=== PATIENT | female | born 1975 | race Caucasian/White ===

== ENCOUNTER 2023-04-11 15:33 | Emergency (ER) | payer OTHER, SELFPAY ==
[2023-04-11 15:33] VITALS: BP 145/95; PULSE 85; RESP 18; TEMP 37.2; O2SAT 100; BMI 34.3
--- NOTE | 2023-04-11 15:33 | ECG_ITS ---
APPROVED REPORT Exam: Resting ECG HR:79 bpm ECG Measurements Heart Rate 79 AXES WI 149 P 49 QRSd 81 QRS 2 QT 393 T 8 QTc 427 Conclusion SINUS RHYTHM MINIMAL ST DEPRESSION [0.025+ mV ST DEPRESSION] BORDERLINE ECG UNCONFIRMED REPORT Electronically signed by : Adolph Bennett MD 04/12/2023 21:40:15
[2023-04-11 16:36] VITALS: BMI 26.5
--- NOTE | 2023-04-11 16:41 | CT_ITS ---
PROCEDURE INFORMATION: Exam: CTA Chest Without And With Contrast Exam date and time: 04/11/2023 4:32 PM Age: 47 years old Clinical indication: Sternal or substernal pain; Prior surgery; Surgery date: 6+ months; Surgery type: Cardiac stents; Patient HX: Chest dissection protocol; Additional info: Chest pain TECHNIQUE: Imaging protocol: Computed tomographic angiography of the chest without and with contrast. 3D rendering (Not supervised by radiologist): MIP and/or 3D reconstructed images were created by the technologist. Radiation optimization: All CT scans at this facility use at least one of these dose optimization techniques: automated exposure control; mA and/or kV adjustment per patient size (includes targeted exams where dose is matched to clinical indication); or iterative reconstruction. Contrast material: ISOVUE; Contrast volume: 100 ml; Contrast route: IV; REPORTING DATA: Count of CT and Cardiac NM exams in prior 12 months: This patient has received 0 known CTs and 0 known cardiac nuclear medicine studies in the 12 months prior to the current study. COMPARISON: No relevant prior studies available. FINDINGS: Pulmonary arteries: Pulmonary vasculature is adequately opacified without filling defects or other evidence of acute pulmonary embolism. Aorta: Ascending aorta is unremarkable. There are mild atherosclerotic changes of the descending thoracic aorta with some scattered calcified and noncalcified plaque with changes extending into the upper abdominal aorta. There is no aortic aneurysm or compelling evidence of aortic dissection. Lungs: Minor atelectatic changes right middle lobe and left lingula otherwise lung hughes are aerated and clear. Pleural spaces: Unremarkable. No pneumothorax. No pleural effusion. Heart: Heart is not significantly enlarged. No significant coronary artery calcifications. Evidence of previous coronary artery stenting. No significant pericardial effusion. Lymph nodes: Unremarkable. No enlarged lymph nodes. Bones/joints: Unremarkable. No acute fracture. Soft tissues: Unremarkable. IMPRESSION: 1. Mild atherosclerotic changes of the descending thoracic aorta. No evidence of aortic aneurysm or dissection. 2. No evidence of acute pulmonary embolism.
--- NOTE | 2023-04-11 16:43 | PC.NURSE ---
u/s guided IV placed. 20G inserted to R forearm
--- NOTE | 2023-04-11 16:43 | PC.NURSE ---
pt to CT
[2023-04-11 17:01] VITALS: BP 107/68; PULSE 69; O2SAT 100
[2023-04-11 17:02] VITALS: BP 107/68; PULSE 69; O2SAT 100
[2023-04-11 17:24] LABS: Alanine Aminotransferase 32 U/L (12-78); Albumin Level 4.2 g/dl (3.5-5.0); Albumin/Globulin Ratio 1.3 (1.1-1.8); Alkaline Phosphatase 135 U/L (38-126); Aspartate Amino Transferase 24 U/L (14-36); Bilirubin,Total 0.3 mg/dl (0.2-1.3); Blood Urea Nitrogen 12 mg/dl (7-17); Calcium 8.7 mg/dl (8.4-10.2); Carbon Dioxide 29 mmol/L (22.0-30.0); Chloride 99 mmol/L (98-107); Creatinine Clearance Estimated 93 mL/min (50-200); Estimated Glomerular Filt Rate 77 ml/min (>60); GFR (African American) 93 ML/MIN (>60); Globulin 3.2 g/dL (1.3-3.2); Glucose 110 mg/dl (74-100); Sodium 138 mmol/L (136-145); Total Protein,Serum 7.4 g/dl (6.3-8.2)
--- NOTE | 2023-04-11 17:25 | [facility].EDGENADL ---
Discharge Plan Disposition Patient Disposition: Home, Self-Care Condition: Good Prescriptions Prescriptions: New meloxicam 7.5 mg tablet 7.5 mg PO DAILY Qty: 10 0RF cyclobenzaprine 10 mg tablet 10 mg PO TID PRN (Reason: muscle spasm) Qty: 10 0RF Referrals Follow up/Referrals: Provider,ReferralMD [Primary Care Provider] - See instructions Clinical Impressions Clinical Impression: Chest pain Instructions Patient Instructions: DI for Atypical Chest Pain Discharge ED Provider: Pascual Guaman General Adult HPI General Chief complaint: Chest Pain Stated complaint: chest pain Time Seen by Provider: 04/11/23 18:36 Mode of Arrival: Ambulatory Limitations: No Limitations Description of Symptoms (Recalled from ER Triage Doc. by RN): PT C/O 4-5 DAYS OF LEFT SIDED CHEST PAIN THAT RADIATES TO LEFT SHOULDER, BACK AND NECK. PT REPORTS DRY COUGH, NAUSEA AND UPPER ABDOMINAL PAIN History of Present Illness HPI narrative: Patient presents to the emergency department with left-sided chest pain for the last 3 to 4 days. The patient states that it is progressively been getting worse and it radiates into her back. She denies any pain with movement. Denies any pain with deep inspiration. Patient denies any fever, chills, cough, congestion, nausea or vomiting. Denies any previous history of similar symptoms. States she does have some associated shortness of breath. Related Data Previous Rx's Medication Instructions Recorded cyclobenzaprine 10 mg tablet 10 mg PO TID PRN muscle spasm #10 04/11/23 tabs meloxicam 7.5 mg tablet 7.5 mg PO DAILY #10 tabs 04/11/23 Allergies Allergy/AdvReac Type Severity Reaction Status Date / Time acetaminophen [From Percocet] Allergy Verified 04/11/23 16:40 lisinopril Allergy Verified 04/11/23 16:40 oxycodone [From Percocet] Allergy Verified 04/11/23 16:40 Sulfa (Sulfonamide Allergy Verified 04/11/23 16:40 Antibiotics) [facility] Disclaimer: The information contained in this section may have been updated after the patient was seen, as this information can be updated by other users. Social History Smoking Status: Current every day smoker alcohol intake: never current occupational status: employed Travel in the last 8 weeks: None ROS Obtained: Yes All systems reviewed & no additional complaints except as documented Cardiovascular Cardiovascular: Reports chest pain and Reports dyspnea Respiratory Respiratory: Reports dyspnea Musculoskeletal Musculoskeletal: Reports back pain Physical Exam General General appearance: alert and in no apparent distress Head Head exam: atraumatic and normocephalic Eye Eye exam: Present normal appearance, PERRL and EOMI Chest Chest inspection: Present normal inspection Respiratory Respiratory exam: Present normal lung sounds bilaterally Cardiovascular Cardiovascular exam: Present regular rate, normal rhythm and normal heart sounds Abdominal Exam Abdominal exam: Present soft and normal bowel sounds Extremities Exam Extremities exam: Present normal inspection and full ROM Back Exam Back exam: Present normal inspection and full ROM Neurological Exam Neurological exam: Present alert, oriented X3 and normal gait Psychiatric Psychiatric exam: Present normal affect and normal mood Skin Skin exam: Present warm and dry Medical Decision Making Medical Records Medical records reviewed: Yes I reviewed the patient's medical records. Billy Inquiry Pt receiving controlled substance: No Vital Signs: 04/11/23 15:33 04/11/23 17:02 04/11/23 17:01 Temperature 98.9 F Temperature Source Oral Pulse Rate 69 69 Pulse Rate [Apical] 85 Respiratory Rate 18 Blood Pressure 107/68 L 107/68 L Blood Pressure [Right Arm] 145/95 H Blood Pressure Mean 81 Blood Pressure Mean [Right Arm] 111 Blood Pressure Source [Right Arm] Automatic Cuff Blood Pressure Position
[2023-04-11 17:30] VITALS: BP 105/69; PULSE 70; O2SAT 100
--- NOTE | 2023-04-11 17:33 | PC.NURSE ---
ROUNDED ON PT, TEXTING ON PHONE, NO NEEDS AT THIS TIME
[2023-04-11 17:53] LABS: Troponin I < 0.01 ng/ml (0.00-0.034)
[2023-04-11 18:09] LABS: Basophils % 0.5 % (0.1-2.0); Eosinophils # 0.1 K/mm3 (0.0-0.4); Eosinophils % 1.3 % (0.1-12.0); Hematocrit 40.5 % (37.0-47.0); Hemoglobin 13.3 g/dL (12.2-16.2); Lymphocytes # 2.5 K/mm3 (0.7-4.5); Lymphocytes % 31.7 % (10-50); Mean Corpuscular HGB Conc 32.9 g/dL (31.8-35.4); Mean Corpuscular Hemoglobin 31.3 pg (27.0-31.2); Mean Corpuscular Volume 95.2 fl (81-99); Mean Platelet Volume 8.7 fl (7.4-10.4); Monocytes # 0.5 K/mm3 (0.1-1.0); Monocytes % 6.4 % (1.7-9.3); Neutrophils # 4.7 K/mm3 (1.8-7.8); Neutrophils % 60.2 % (37.0-80.0); Platelet Count 400 K/mm3 (142-424); Red Blood Count 4.26 M/mm3 (4.20-5.40); Red Cell Distribution Width 13.5 % (11.5-17.5); White Blood Count 7.8 K/mm3 (4.8-10.8)
--- NOTE | 2023-04-11 18:12 | PC.NURSE ---
pt ambulated to restroom and back to room, no complaints at this time, call light and tap hardin at bedside
[2023-04-11 18:59] VITALS: BP 113/65; PULSE 68; RESP 18; TEMP 36.6; O2SAT 99
== END 2023-04-11 19:00 | disposition home or self-care (01) ==
PROVIDERS: Emergency Provider Emergency Medicine
DX: R07.9 Chest pain, unspecified (principal); M25.512 Pain in left shoulder; M54.2 Cervicalgia; R06.02 Shortness of breath; F17.200 Nicotine dependence, unspecified, uncomplicated
CPT/HCPCS: 71275; 80053; 84484; 85025; 93005; 96361; 96374; 99285; Q9967

== ENCOUNTER 2023-11-25 22:08 | Emergency (ER) | payer OTHER, SELFPAY ==
--- NOTE | 2023-11-25 22:11 | ECG_ITS ---
APPROVED REPORT Exam: Resting ECG HR:85 bpm ECG Measurements Heart Rate 85 AXES FL 150 P 64 QRSd 81 QRS 18 QT 375 T 44 QTc 418 Conclusion SINUS RHYTHM LOW QRS VOLTAGE IN PRECORDIAL LEADS [QRS DEFLECTION < 1.0 mV IN CHEST LEADS] NONSPECIFIC ST & T-WAVE ABNORMALITY BORDERLINE ECG UNCONFIRMED REPORT Electronically signed by : Adolph Bennett MD 11/26/2023 08:23:16
[2023-11-25 22:12] VITALS: BP 158/102; PULSE 93; RESP 17; TEMP 36.2; O2SAT 98; BMI 35.5
--- NOTE | 2023-11-25 22:15 | CT_ITS ---
PROCEDURE INFORMATION: Exam: CTA Chest With Contrast Exam date and time: 11/25/2023 10:44 PM Age: 48 years old Clinical indication: Pain; Chest pressure; Additional info: Cp to back TECHNIQUE: Imaging protocol: Computed tomographic angiography of the chest with contrast. Exam focused on the arteries. 3D rendering (Not supervised by radiologist): MIP and/or 3D reconstructed images were created by the technologist. Radiation optimization: All CT scans at this facility use at least one of these dose optimization techniques: automated exposure control; mA and/or kV adjustment per patient size (includes targeted exams where dose is matched to clinical indication); or iterative reconstruction. Contrast material: ISO 370; Contrast volume: 70 ml; Contrast route: INTRAVENOUS (IV); REPORTING DATA: Count of CT and Cardiac NM exams in prior 12 months: This patient has received [address] and 0 known cardiac nuclear medicine studies in the 12 months prior to the current study. COMPARISON: CT ANGIO CHEST 04/11/2023 4:32 PM FINDINGS: Pulmonary arteries: Normal. No pulmonary emboli. Aorta: Unremarkable. No aortic aneurysm. No aortic dissection. Lungs: Unremarkable. No consolidation. No masses. Pleural spaces: Unremarkable. No pneumothorax. No pleural effusion. Heart: Unremarkable. No cardiomegaly. No pericardial effusion. Lymph nodes: Unremarkable. No enlarged lymph nodes. Bones/joints: Unremarkable. No acute fracture. Soft tissues: Unremarkable. IMPRESSION: No acute findings.
--- NOTE | 2023-11-25 22:17 | ED_ITS ---
Discharge Plan Disposition Patient Disposition: Home, Self-Care Condition: Good Prescriptions Prescriptions: No Action meloxicam 7.5 mg tablet 7.5 mg PO DAILY Qty: 10 0RF cyclobenzaprine 10 mg tablet 10 mg PO TID PRN (Reason: muscle spasm) Qty: 10 0RF Referrals Follow up/Referrals: Provider,Referral, [Primary Care Provider] - See instructions Activity Restrictions/Add. Instructions Additional Instructions/Restrictions: You were evaluated in the ER today for chest pain. I believe you are appropriate for discharge at this time. Go to your scheduled appointments, especially the upcoming echo. Do not miss this appointment. Also make an appo intment with your primary care physician for reevaluation in 2 to 3 days. It is important that you discuss your high blood sugar with your primary care physician. Return to the ER with new, worsening, or otherwise concerning symptoms. Clinical Impressions Clinical Impression: Chest pain, Hyperglycemia Discharge ED Provider: Landon Panda HPI <Blaine Jiang MD - Last Filed: 11/25/23 23:11> General Chief Complaint: Chest Pain Stated Complaint: Chest pain Time Seen by Provider: 11/25/23 22:15 History of Present Illness HPI narrative: Patient is a 48-year-old female with past medical history of coronary artery disease status post stenting who presents emergency department for evaluation of chest pain. Onset was acute, earlier this afternoon. She had an episode yesterday of chest pain that was substernal, intermittently radiating through to the back. Partially responsive to her nitroglycerin. No cough, no abdominal pain. She presented to [facility] yesterday where workup was nonactionable and she was subsequently discharged home. Patient has cardiology testing starting Sunday this week as scheduled in [place]. No other acute complaints. Related Data Previous Rx's Medication Instructions Recorded cyclobenzaprine 10 mg tablet 10 mg PO TID PRN muscle spasm #10 04/11/23 tabs meloxicam 7.5 mg tablet 7.5 mg PO DAILY #10 tabs 04/11/23 Allergies Allergy/AdvReac Type Severity Reaction Status Date / Time acetaminophen [From Percocet] Allergy Verified 04/11/23 16:40 lisinopril Allergy Verified 04/11/23 16:40 oxycodone [From Percocet] Allergy Verified 04/11/23 16:40 Sulfa (Sulfonamide Allergy Verified 04/11/23 16:40 Antibiotics) [facility] <Blaine Jiang MD - Last Filed: 11/25/23 23:11> [facility] Disclaimer: The information contained in this section may have been updated after the patient was seen, as this information can be updated by other users. Social History (Updated 04/11/23 @ 18:36 by Pascual Guaman MD) Smoking Status: Unknown if ever smoked alcohol intake: never current occupational status: employed Travel in the last 8 weeks: None <Blanie Jiang MD - Last Filed: 11/25/23 23:11> ROS Obtained: Yes Systems reviewed as appropriate & no additional complaints except as documented Physical Exam <Blaine Jiang MD - Last Filed: 11/25/23 23:11> General General appearance: alert and in no apparent distress Head Head exam: atraumatic and normocephalic Eye Eye exam: Present PERRL and EOMI ENT ENT exam: Present mucous membranes moist Neck Neck exam: Present normal inspection Chest Chest inspection: Present normal inspection and symmetric chest wall rise Respiratory Respiratory exam: Present normal lung sounds bilaterally; Absent respiratory distress Cardiovascular Cardiovascular exam: Present regular rate and normal rhythm Abdominal Exam Abdominal exam: Present soft; Absent tenderness Extremities Exam Extremities exam: Present normal inspection Neurological Exam Neurological exam: Present alert; Absent motor sensory deficit Psychiatric Psychiatric exam: Present normal affect Skin Skin exam: Present warm and dry HEART Score <Blaine Jiang MD - Last Filed: 11/25/23 23:11> HEART Score HEART Score assessment performed?: Yes History (anamnesis): Moderately suspicious ECG: Normal Age: 45-65 years Risk factors: Atherosclerosis history Troponin: </= normal limit HEART Score: 4 <Landon Panda MD - Last Filed: 11/26/23 02:37> HEART Score HEART Score: 4 Critical Care <Blaine Jiang MD - Last Filed: 11/25/23 23:11> Critical Care Time Critical Care Time: No Medical Decision Making <Blaine Jiang MD - Last Filed: 11/25/23 23:11> Billy Inquiry Pt receiving controlled substance: No Vital Signs Vital Signs: 11/25/23 22:12 11/25/23 22:19 11/25/23 22:32 Temperature 97.2 F L Temperature Source Oral Pulse Rate 78 84 Pulse Rate [Right Brachial] 93 H Respiratory Rate 17 16 Blood Pressure 141/100 H Blood Pressure [Right Arm] 158/102 H Blood Pressure Mean 115 Blood Pressure Mean [Right Arm] 120 Blood Pressure Source [Right Arm] Automatic Cuff Blood Pressure Position [Right Arm] Sitting 02 Sat by Pulse Oximetry 98 97 Oxygen Delivery Method Room Air Room Air 11/25/23 23:01 11/25/23 23:30 11/26/23 00:00 Temperature Temperature Source Pulse Rate 73 73 72 Pulse Rate [Right Brachial] Respiratory Rate 16 18 19 Blood Pressure 118/84 93/71 L 95/70 L Blood Pressure [Right Arm] Blood Pressure Mean 95 78 76 Blood Pressure Mean [Right Arm] Blood Pressure Source [Right Arm] Blood Pressure Position [Right Arm] 02 Sat by Pulse Oximetry 98 95 95 Oxygen Delivery Method Room Air Room Air Room Air 11/26/23 00:30 11/26/23 01:00 11/26/23 01:30 Temperature Temperature Source Pulse Rate 70 72 73 Pulse Rate [Right Brachial] Respiratory Rate 19 21 13 Blood Pressure 102/71 L 96/74 L 120/82 Blood Pressure [Right Arm] Blood Pressure Mean 81 79 Blood Pressure Mean [Right Arm] Blood Pressure Source [Right Arm] Blood Pressure Position [Right Arm] 02 Sat by Pulse Oximetry 97 96 99 Oxygen Delivery Method Room Air Room Air Lab Data Labs: Lab Results 11/25/23 22:20: WBC 8.2, RBC 4.39, Hgb 14.0, Hct 40.0, MCV 91.2, MCH 31.8 H, MCHC 34.9, RDW 13.6, Plt Count 391, MPV 7.7, Neut % (Auto) 51.0, Lymph % (Auto) 40.8, [place] % (Auto) 6.3, Eos % (Auto) 1.3, Baso % (Auto) 0.7, Neut # (Auto) 4.2, Lymph # (Auto) 3.4, [place] # (Auto) 0.5, Eos # (Auto) 0.1, Baso # (Auto) 0.1, Sodium 140, Potassium 3.3 L, Chloride 102, Carbon Dioxide 26, Anion Gap 15.3 H, BUN 16, Creatinine 0.80, Estimated Creat Clear 108, Estimated GFR 77, Est GFR ( Amer) 93, Glucose 220 H, Calcium 9.0, Total Bilirubin 0.4, AST 27, ALT 46, Alkaline Phosphatase 136 H, Troponin I < 0.01, Total Protein 7.8, Albumin 4.6, Globulin 3.2, Albumin/Globulin Ratio 1.4 11/26/23 01:21: Troponin I < 0.01 11/25/23 22:20 11/25/23 22:20 Response Orders (Tests/Meds): ED MEDICATIONS Generic Name Dose Route Start Last Admin Trade Name Freq PRN Reason Stop Dose Admin Nitroglycerin 0.4 mg 11/25/23 22:20 Nitroglycerin 0.4mg Sl Tablet SL 12/25/23 22:19 [id number] PRN Chest Pain Sodium Chloride 10 ml 11/25/23 22:32 Sodium Chloride 0.9% 10ml Vial IV 12/25/23 22:31 NEEDED PRN to Dilute Lorazepam inj Discontinued Medications Generic Name Dose Route Start Last Admin Trade Name Freq PRN Reason Stop Dose Admin Acetaminophen 1,000 mg 11/25/23 22:17 11/25/23 22:27 Acetaminophen 1,000mg/100ml Vial IV 11/25/23 22:18 1,000 mg ONCE ONE Administration Belladonna Alkaloids 60 ml 11/25/23 22:16 11/25/23 22:27 Belladonna Alkaloids 60 Ml Ml PO 11/25/23 22:17 60 ml ONCE ONE Administration Iopamidol 70 ml 11/25/23 22:53 11/25/23 22:54 Iopamidol-370 (76%);100ml Bottle IV 11/25/23 22:54 70 ml ONCE ONE Administration Lorazepam 1 mg 11/25/23 22:32 11/25/23 22:41 Lorazepam 2mg/Ml Vial IV 11/25/23 22:33 1 mg ONCE ONE Administration Sodium Chloride 50 ml 11/25/23 22:53 11/25/23 22:54 0.9 % Sodium Chloride 50 Ml Vial IV 11/25/23 22:54 50 ml ONCE ONE Administration Sodium Chloride 10 ml 11/25/23 22:53 11/25/23 22:54 Sodium Chloride 0.9% 10ml Syr (Rad Only) IV 11/25/23 22:54 10 ml ONCE ONE Administration ORDERS Category Date Time Status CT angio chest - dissection Stat Cat Scan 11/25/23 22:15 Completed CBC w/Auto Diff [Complete Blood Count Auto Diff] Stat Lab 11/25/23 22:20 Completed CMP [Comprehensive Metabolic Panel] Stat Lab 11/25/23 22:20 Completed Trop I [Troponin I] Stat Lab 11/25/23 22:20 Completed Troponin I Q3H Lab 11/26/23 01:21 Completed Troponin I Q3H Lab 11/26/23 04:30 Ordered ECG Data Tracing #1: ECG Narrative: Independently interpreted by me, rate is 85, rhythm is regular, axis is normal, no ST elevation in anatomical contiguous leads, QTc 418. MDM Narrative Medical Decision Narrative: In summary patient is a 48-year-old female past medical history described above presents emergency department for evaluation of chest pain. Patient is hemodynamically stable nontoxic-appearing upon arrival, afebrile. Differential diagnosis includes ACS, dissection, noncardiac chest pain, among others. Workup to be conducted with hematologic labs, CTA chest, troponins. Initial inventions include IV Tylenol, GI cocktail, nitroglycerin. Initial workup reviewed by me, hematologic labs remarkable for hyperglycemia, initial troponin undetectably low. CTA read, second troponin repeat evaluation pending at transfer of care to the oncoming physician, Dr. Panda. <Landon Panda MD - Last Filed: 11/26/23 02:37> Vital Signs Vital Signs: 11/25/23 22:12 11/25/23 22:19 11/25/23 22:32 Temperature 97.2 F L Temperature Source Oral Pulse Rate 78 84 Pulse Rate [Right Brachial] 93 H Respiratory Rate 17 16 Blood Pressure 141/100 H Blood Pressure [Right Arm] 158/102 H Blood Pressure Mean 115 Blood Pressure Mean [Right Arm] 120 Blood Pressure Source [Right Arm] Automatic Cuff Blood Pressure Position [Right Arm] Sitting 02 Sat by Pulse Oximetry 98 97 Oxygen Delivery Method Room Air Room Air 11/25/23 23:01 11/25/23 23:30 11/26/23 00:00 Temperature Temperature Source Pulse Rate 73 73 72 Pulse Rate [Right Brachial] Respiratory Rate 16 18 19 Blood Pressure 118/84 93/71 L 95/70 L Blood Pressure [Right Arm] Blood Pressure Mean 95 78 76 Blood Pressure Mean [Right Arm] Blood Pressure Source [Right Arm] Blood Pressure Position [Right Arm] 02 Sat by Pulse Oximetry 98 95 95 Oxygen Delivery Method Room Air Room Air Room Air 11/26/23 00:30 11/26/23 01:00 11/26/23 01:30 Temperature Temperature Source Pulse Rate 70 72 73 Pulse Rate [Right Brachial] Respiratory Rate 19 21 13 Blood Pressure 102/71 L 96/74 L 120/82 Blood Pressure [Right Arm] Blood Pressure Mean 81 79 Blood Pressure Mean [Right Arm] Blood Pressure Source [Right Arm] Blood Pressure Position [Right Arm] 02 Sat by Pulse Oximetry 97 96 99 Oxygen Delivery Method Room Air Room Air Lab Data Labs: Lab Results 11/25/23 22:20: WBC 8.2, RBC 4.39, Hgb 14.0, Hct 40.0, MCV 91.2, MCH 31.8 H, MCHC 34.9, RDW 13.6, Plt Count 391, MPV 7.7, Neut % (Auto) 51.0, Lymph % (Auto) 40.8, [place] % (Auto) 6.3, Eos % (Auto) 1.3, Baso % (Auto) 0.7, Neut # (Auto) 4.2, Lymph # (Auto) 3.4, [place] # (Auto) 0.5, Eos # (Auto) 0.1, Baso # (Auto) 0.1, Sodium 140, Potassium 3.3 L, Chloride 102, Carbon Dioxide 26, Anion Gap 15.3 H, BUN 16, Creatinine 0.80, Estimated Creat Clear 108, Estimated GFR 77, Est GFR ( Amer) 93, Glucose 220 H, Calcium 9.0, Total Bilirubin 0.4, AST 27, ALT 46, Alkaline Phosphatase 136 H, Troponin I < 0.01, Total Protein 7.8, Albumin 4.6, Globulin 3.2, Albumin/Globulin Ratio 1.4 11/26/23 01:21: Troponin I < 0.01 Response Orders (Tests/Meds): ED MEDICATIONS Generic Name Dose Route Start Last Admin Trade Name Freq PRN Reason Stop Dose Admin Nitroglycerin 0.4 mg 11/25/23 22:20 Nitroglycerin 0.4mg Sl Tablet SL 12/25/23 22:19 Q5MINP PRN Chest Pain Sodium Chloride 10 ml 11/25/23 22:32 Sodium Chloride 0.9% 10ml Vial IV 12/25/23 22:31 NEEDED PRN to Dilute Lorazepam inj Discontinued Medications Generic Name Dose Route Start Last Admin Trade Name Freq PRN Reason Stop Dose Admin Acetaminophen 1,000 mg 11/25/23 22:17 11/25/23 22:27 Acetaminophen 1,000mg/100ml Vial IV 11/25/23 22:18 1,000 mg ONCE ONE Administration Belladonna Alkaloids 60 ml 11/25/23 22:16 11/25/23 22:27 Belladonna Alkaloids 60 Ml Ml PO 11/25/23 22:17 60 ml ONCE ONE Administration Iopamidol 70 ml 11/25/23 22:53 11/25/23 22:54 Iopamidol-370 (76%);100ml Bottle IV 11/25/23 22:54 70 ml ONCE ONE Administration Lorazepam 1 mg 11/25/23 22:32 11/25/23 22:41 Lorazepam 2mg/Ml Vial IV 11/25/23 22:33 1 mg ONCE ONE Administration Sodium Chloride 50 ml 11/25/23 22:53 11/25/23 22:54 0.9 % Sodium Chloride 50 Ml Vial IV 11/25/23 22:54 50 ml ONCE ONE Administration Sodium Chloride 10 ml 11/25/23 22:53 11/25/23 22:54 Sodium Chloride 0.9% 10ml Syr (Rad Only) IV 11/25/23 22:54 10 ml ONCE ONE Administration ORDERS Category Date Time Status CT angio chest - dissection Stat Cat Scan 11/25/23 22:15 Completed CBC w/Auto Diff [Complete Blood Count Auto Diff] Stat Lab 11/25/23 22:20 Completed CMP [Comprehensive Metabolic Panel] Stat Lab 11/25/23 22:20 Completed Trop I [Troponin I] Stat Lab 11/25/23 22:20 Completed Troponin I Q3H Lab 11/26/23 01:21 Completed Troponin I Q3H Lab 11/26/23 04:30 Ordered MDM Narrative Medical Decision Narrative: In summary patient is a 48-year-old female past medical history described above presents emergency department for evaluation of chest pain. Patient is hemodynamically stable nontoxic-appearing upon arrival, afebrile. Differential diagnosis includes ACS, dissection, noncardiac chest pain, among others. Workup to be conducted with hematologic labs, CTA chest, troponins. Initial inventions include IV Tylenol, GI cocktail, nitroglycerin. Initial workup reviewed by me, hematologic labs remarkable for hyperglycemia, initial troponin undetectably low. CTA read, second troponin repeat evaluation pending at transfer of care to the oncoming physician, Dr. Panda. Panda: Upon my assumption of care patient is resting comfortably. Her chest pain is improved and she is sleepy but arousable. I reviewed primary provider's workup and agree with his plan. Labs demonstrate no leukocytosis or anemia on personal review, patient has mild hypokalemia with potassium 3.3, she will receive oral repletion. Anion gap only slightly elevated at 15.3, nonspecific, nonactionable at this time. Patient does have new hyperglycemia with no previous diagnosis of diabetes. Discussed this with the patient and recommended outpatient follow-up. Repeat troponin []. CTA chest personally interpreted does not demonstrate any acute aortic dissection or dilation, no findings of pulmonary embolism. See radiology read for final interpretation. CTA abdomen and pelvis is without findings of aortic dissection or aneurysm, no other acute abnormalities appreciated in the abdomen. See radiology read for final interpretation. On further reassessment patient remains stable. She has tolerated oral intake. She is appropriate for discharge at this time. She has follow-up and reports a cardiac echo scheduled in 2 days and with his close follow-up and improvement of symptoms I am comfortable discharging the patient. Patient was given instructions on symptomatic management, follow up instructions including strict instructions to go to her echo as scheduled, and return precautions for the emergency department. Patient indicated understanding and was discharged in stable condition.
[2023-11-25 22:19] VITALS: PULSE 78
[2023-11-25] MEDS: ACETAMINOPHEN 1,000MG/100ML VIAL 1000 MG IV (22:27)
[2023-11-25] MEDS: BELLADONNA ALKALOIDS 60 ML ML PO (22:27)
[2023-11-25 22:32] VITALS: BP 141/100; PULSE 84; RESP 16; O2SAT 97
[2023-11-25 22:34] LABS: Basophils # 0.1 K/mm3 (0-0.2); Basophils % 0.7 % (0.1-2.0); Eosinophils # 0.1 K/mm3 (0.0-0.4); Eosinophils % 1.3 % (0.1-12.0); Lymphocytes # 3.4 K/mm3 (0.7-4.5); Lymphocytes % 40.8 % (10-50); Mean Corpuscular HGB Conc 34.9 g/dL (31.8-35.4); Mean Corpuscular Hemoglobin 31.8 pg (27.0-31.2); Mean Corpuscular Volume 91.2 fl (81-99); Mean Platelet Volume 7.7 fl (7.4-10.4); Monocytes # 0.5 K/mm3 (0.1-1.0); Monocytes % 6.3 % (1.7-9.3); Neutrophils # 4.2 K/mm3 (1.8-7.8); Platelet Count 391 K/mm3 (142-424); Red Blood Count 4.39 M/mm3 (4.20-5.40); Red Cell Distribution Width 13.6 % (11.5-17.5); White Blood Count 8.2 K/mm3 (4.8-10.8)
[2023-11-25 22:35] LABS: Chloride 102 mmol/L (98-107); Potassium 3.3 mmoL/L (3.5-5.1); Sodium 140 mmol/L (136-145)
[2023-11-25 22:37] LABS: Alanine Aminotransferase 46 U/L (12-78); Aspartate Amino Transferase 27 U/L (14-36); Blood Urea Nitrogen 16 mg/dl (7-17); Creatinine Clearance Estimated 108 mL/min (50-200); Estimated Glomerular Filt Rate 77 ml/min (>60); GFR (African American) 93 ML/MIN (>60)
[2023-11-25 22:38] LABS: Albumin Level 4.6 g/dl (3.5-5.0); Albumin/Globulin Ratio 1.4 (1.1-1.8); Alkaline Phosphatase 136 U/L (38-126); Anion Gap 15.3 mEq/L (5-15); Bilirubin,Total 0.4 mg/dl (0.2-1.3); Carbon Dioxide 26 mmol/L (22.0-30.0); Globulin 3.2 g/dL (1.3-3.2); Glucose 220 mg/dl (74-100); Total Protein,Serum 7.8 g/dl (6.3-8.2)
[2023-11-25] MEDS: LORazepam 2MG/ML VIAL 1 MG IV (22:41)
[2023-11-25 22:51] LABS: Troponin I < 0.01 ng/ml (0.00-0.034)
[2023-11-25] MEDS: SODIUM CHLORIDE 0.9% 10ML SYR (RAD ONLY) 10 ML IV (22:54)
[2023-11-25] MEDS: IOPAMIDOL-370 (76%);100ML BOTTLE 70 ML IV (22:54)
[2023-11-25] MEDS: 0.9 % SODIUM CHLORIDE 50 ML VIAL IV (22:54)
[2023-11-25 23:01] VITALS: BP 118/84; PULSE 73; RESP 16; O2SAT 98
[2023-11-25 23:30] VITALS: BP 93/71; PULSE 73; RESP 18; O2SAT 95
[2023-11-26] VITALS: BP 95/70; PULSE 72; RESP 19; O2SAT 95
[2023-11-26 00:30] VITALS: BP 102/71; PULSE 70; RESP 19; O2SAT 97
[2023-11-26 01:00] VITALS: BP 96/74; PULSE 72; RESP 21; O2SAT 96
[2023-11-26 01:30] VITALS: BP 120/82; PULSE 73; RESP 13; O2SAT 99
[2023-11-26 01:50] LABS: Troponin I < 0.01 ng/ml (0.00-0.034)
[2023-11-26 02:36] VITALS: BP 105/73; PULSE 72; RESP 21; TEMP 36.8; O2SAT 95
== END 2023-11-26 02:43 | disposition home or self-care (01) ==
PROVIDERS: Emergency Medicine; Emergency Provider Emergency Medicine
DX: R07.9 Chest pain, unspecified (principal); I25.10 Atherosclerotic heart disease of native coronary artery without angina pectoris; R73.9 Hyperglycemia, unspecified
CPT/HCPCS: 71275; 80053; 84484; 85025; 93005; 96374; 96375; 99285; J0131; Q9967

== ENCOUNTER 2023-12-14 18:02 | Observation (INO) | payer OTHER, SELFPAY ==
[2023-12-14 18:02] VITALS: BP 154/99; PULSE 86; RESP 15; TEMP 36.5; O2SAT 96; BMI 35.3
--- NOTE | 2023-12-14 18:03 | ECG_ITS ---
APPROVED REPORT Exam: Resting ECG HR:85 bpm ECG Measurements Heart Rate 85 AXES UT 143 P 62 QRSd 103 QRS 7 QT 382 T 34 QTc 424 Conclusion SINUS RHYTHM MINIMAL ST DEPRESSION [0.025+ mV ST DEPRESSION] BORDERLINE ECG UNCONFIRMED REPORT Electronically signed by : Adolph Bennett MD 12/15/2023 08:52:09
--- NOTE | 2023-12-14 18:05 | XR_ITS ---
PROCEDURE INFORMATION: Exam: XR Chest Exam date and time: 12/14/2023 6:09 PM Age: 48 years old Clinical indication: Other: Chest pain TECHNIQUE: Imaging protocol: Radiologic exam of the chest. Views: 1 view. COMPARISON: CT ANGIO CHEST 11/25/2023 10:44 PM FINDINGS: Lungs: Unremarkable. No consolidation. Pleural spaces: Unremarkable. No pleural effusion. No pneumothorax. Heart/Mediastinum: Unremarkable. No cardiomegaly. Bones/joints: Unremarkable. IMPRESSION: No acute findings.
--- NOTE | 2023-12-14 18:13 | PC.NURSE ---
RAD at for CXR
[2023-12-14 18:25] LABS: Basophils # 0.1 K/mm3 (0-0.2); Basophils % 0.9 % (0.1-2.0); Eosinophils # 0.1 K/mm3 (0.0-0.4); Eosinophils % 1.1 % (0.1-12.0); Hematocrit 43.7 % (37.0-47.0); Hemoglobin 14.8 g/dL (12.2-16.2); Lymphocytes # 3.4 K/mm3 (0.7-4.5); Lymphocytes % 41.4 % (10-50); Mean Corpuscular Hemoglobin 31.4 pg (27.0-31.2); Mean Corpuscular Volume 92.5 fl (81-99); Mean Platelet Volume 7.9 fl (7.4-10.4); Monocytes # 0.5 K/mm3 (0.1-1.0); Monocytes % 5.9 % (1.7-9.3); Neutrophils # 4.1 K/mm3 (1.8-7.8); Neutrophils % 50.8 % (37.0-80.0); Platelet Count 381 K/mm3 (142-424); Red Blood Count 4.72 M/mm3 (4.20-5.40); Red Cell Distribution Width 13.4 % (11.5-17.5); White Blood Count 8.1 K/mm3 (4.8-10.8)
[2023-12-14 18:31] VITALS: BP 138/95; PULSE 77; RESP 19; O2SAT 98
[2023-12-14 18:38] LABS: Chloride 102 mmol/L (98-107); Sodium 138 mmol/L (136-145)
[2023-12-14 18:39] LABS: Potassium 4.1 mmoL/L (3.5-5.1)
[2023-12-14 18:41] LABS: Alanine Aminotransferase 55 U/L (12-78); Alkaline Phosphatase 141 U/L (38-126); Aspartate Amino Transferase 34 U/L (14-36); Bilirubin,Total 0.5 mg/dl (0.2-1.3); Blood Urea Nitrogen 14 mg/dl (7-17); Creatinine Clearance Estimated 144 mL/min (50-200); Estimated Glomerular Filt Rate 107 ml/min (>60); GFR (African American) 129 ML/MIN (>60)
[2023-12-14 18:42] LABS: Albumin Level 4.6 g/dl (3.5-5.0); Albumin/Globulin Ratio 1.2 (1.1-1.8); Anion Gap 13.1 mEq/L (5-15); Calcium 9.2 mg/dl (8.4-10.2); Carbon Dioxide 27 mmol/L (22.0-30.0); Globulin 3.8 g/dL (1.3-3.2); Glucose 171 mg/dl (74-100); Total Protein,Serum 8.4 g/dl (6.3-8.2)
--- NOTE | 2023-12-14 18:43 | ED_ITS ---
Discharge Plan Disposition Patient Disposition: Admitted Chief Complaint: Chest Pain Prescriptions Prescriptions: No Action meloxicam 7.5 mg tablet 7.5 mg PO DAILY Qty: 10 0RF cyclobenzaprine 10 mg tablet 10 mg PO TID PRN (Reason: muscle spasm) Qty: 10 0RF Clinical Impressions Clinical Impression: Chest pain Discharge ED Provider: John [facility] Chief Complaint: Chest Pain Stated Complaint: CHEST PAIN Time Seen by Provider: 12/14/23 18:12 Mode of Arrival: Ambulatory Source of Information: Patient Limitations: No Limitations Description of Symptoms (Recalled from ER Triage Doc. by RN): pt presents to ED with c/o chest pain. pt reports pain intermittent for the past three days, but t gabriel the pain has been worse. pain become continuous today. pain located in middle of chest and radiating into left shoulder and neck. pt reports taking 324 asa approx 1400. pt does have 1 heart stent. History of Present Illness HPI narrative: 48-year-old female presenting with chest pain. Started about 3 days prior, has been waxing waning, today was constant and worsening. Starts in the middle of her chest, radiates to her left neck and left shoulder. Made worse with exertion and associated shortness of breath. Not made better by anything other than rest. She tried an aspirin and nitroglycerin today, helped intermittently, but came back with a vengeance, shortly thereafter. Denies vomiting, neurologic deficits, or any other concerns. Related Data Previous Rx's Medication Instructions Recorded cyclobenzaprine 10 mg tablet 10 mg PO TID PRN muscle spasm #10 04/11/23 tabs meloxicam 7.5 mg tablet 7.5 mg PO DAILY #10 tabs 04/11/23 Allergies Allergy/AdvReac Type Severity Reaction Status Date / Time acetaminophen [From Percocet] Allergy Verified 04/11/23 16:40 lisinopril Allergy Verified 04/11/23 16:40 oxycodone [From Percocet] Allergy Verified 04/11/23 16:40 Sulfa (Sulfonamide Allergy Verified 04/11/23 16:40 Antibiotics) [facility] Disclaimer: The information contained in this section may have been updated after the patient was seen, as this information can be updated by other users. Social History (Updated 04/11/23 @ 18:36 by Pascual Guaman MD) Smoking Status: Former smoker alcohol intake: never current occupational status: employed Travel in the last 8 weeks: None ROS Obtained: Yes All systems reviewed & no additional complaints except as documented Physical Exam General General appearance: alert Neck Neck exam: Present trachea midline Chest Chest inspection: Present normal inspection and symmetric chest wall rise Respiratory Respiratory exam: Present normal lung sounds bilaterally; Absent respiratory distress, wheezes, stridor, accessory muscle use or prolonged expiratory phase Cardiovascular Cardiovascular exam: Present regular rate and normal rhythm Extremities Exam Extremities exam: Absent edema Neurological Exam Neurological exam: Present alert, oriented X3 and CN II-XII intact Skin Skin exam: Present warm and dry; Absent cyanosis, diaphoresis or pallor HEART Score HEART Score HEART Score assessment performed?: Yes History (anamnesis): Slightly suspicious ECG: Normal Age: 45-65 years Risk factors: 3 or more risk factors Troponin: </= normal limit HEART Score: 3 Critical Care Critical Care Time Critical Care Time: No Medical Decision Making Medical Records Medical records reviewed: Yes I reviewed the patient's medical records. Billy Inquiry Pt receiving controlled substance: No Billy was queried for this patient: No Vital Signs Vital Signs: 12/14/23 18:02 12/14/23 18:31 Temperature 97.7 F Temperature Source Oral Pulse Rate 77 Pulse Rate [Left Radial] 86 Respiratory Rate 15 19 Blood Pressure 138/95 H Blood Pressure [Right Arm] 154/99 H Blood Pressure Mean [Right Arm] 117 02 Sat by Pulse Oximetry 96 98 Oxygen Delivery Method Room Air Room Air Lab Data Labs: Lab Results 12/14/23 18:05: WBC 8.1, RBC 4.72, Hgb 14.8, Hct 43.7, MCV 92.5, MCH 31.4 H, MCHC 34.0, RDW 13.4, Plt Count 381, MPV 7.9, Neut % (Auto) 50.8, Lymph % (Auto) 41.4, [place] % (Auto) 5.9, Eos % (Auto) 1.1, Baso % (Auto) 0.9, Neut # (Auto) 4.1, Lymph # (Auto) 3.4, [place] # (Auto) 0.5, Eos # (Auto) 0.1, Baso # (Auto) 0.1, Sodium 138, Potassium 4.1, Chloride 102, Carbon Dioxide 27, Anion Gap 13.1, BUN 14, Creatinine 0.60, Estimated Creat Clear 144, Estimated GFR 107, Est GFR ( Amer) 129, Glucose 171 H, Calcium 9.2, Total Bilirubin 0.5, AST 34, ALT 55, Alkaline Phosphatase 141 H, Troponin I < 0.01, NT-Pro-B Natriuret Pep < 20.0, Total Protein 8.4 H, Albumin 4.6, Globulin 3.8 H, Albumin/Globulin Ratio 1.2 12/14/23 20:55: Troponin I < 0.01 12/14/23 18:05 12/14/23 18:05 Response Orders (Tests/Meds): ED MEDICATIONS Generic Name Dose Route Start Last Admin Trade Name Freq PRN Reason Stop Dose Admin Nitroglycerin 0.4 mg 12/14/23 18:46 Nitroglycerin 0.4mg Sl Tablet SL 01/13/24 18:45 Q5MINP PRN Chest Pain Sodium Chloride 10 ml 12/14/23 18:18 Sodium Chloride 0.9% 10ml Flush Syringe IV 01/13/24 18:17 NEEDED PRN Maintain IV Site Discontinued Medications Generic Name Dose Route Start Last Admin Trade Name Freq PRN Reason Stop Dose Admin Aspirin 324 mg 12/14/23 18:41 12/14/23 18:45 Aspirin 81mg Chewable Tablet PO 12/14/23 18:42 Not Given ONCE ONE Morphine Sulfate 2 mg 12/14/23 18:41 12/14/23 18:53 Morphine 4mg/Ml Syringe IV 12/14/23 18:42 2 mg ONCE ONE Administration Ondansetron HCl 4 mg 12/14/23 18:42 12/14/23 18:53 Ondansetron 4mg/2ml Vial IV 12/14/23 18:43 4 mg ONCE ONE Administration ORDERS Category Date Time Status XR chest portable Stat Exams 12/14/23 18:05 Completed Brain Natriuretic Peptide Stat Lab 12/14/23 18:05 Completed CMP [Comprehensive Metabolic Panel] Stat Lab 12/14/23 18:05 Completed Complete Blood Count Auto Diff Stat Lab 12/14/23 18:05 Completed Troponin I Q3H Lab 12/14/23 20:55 Completed Troponin I Q3H Lab 12/15/23 00:15 Ordered Troponin I Stat Lab 12/14/23 18:05 Completed MDM Narrative Medical Decision Narrative: 48-year-old female history of CAD status in, hypertension, hyperlipidemia presenting with chest pain. Started about 3 days prior, has been waxing waning, today was constant and worsening. Starts in the middle of her chest, radiates to her left neck and left shoulder. Made worse with exertion and associated shortness of breath. Not made better by anything other than rest. She tried an aspirin and nitroglycerin today, helped intermittently, but came back with a vengeance, shortly thereafter. Denies vomiting, neurologic deficits, or any other concerns. Hb noted the patient has a history of CAD status post stenting with similar history in the past. History was obtained via conversation with patient and family. On arrival, patient hemodynamically stable, alert, oriented x4, appropriate, GCS 15, moving all extremities spontaneously, pupils equal and reactive to light. Full physical exam performed and significant for tearful woman in no acute distress. Intermittently having episodes of chest pain. Lungs are clear to auscultation bilaterally, but quiet in the bases. No lower extremity edema. Hypertensive, nontachycardic, saturating appropriately on room air. Neurologically intact. Differential includes ACS, DE, pneumothorax, PE, dissection, pneumothorax, aortic aneurysm, pneumonia, bronchitis, among others. Patient was given aspirin, morphine, Zofran 4 mg for symptomatic management and correction of underlying abnormalities. Nitroglycerin was given as needed. Workup independently interpreted and significant for nonactionable initial troponin.. See radiology read for full review of final results. Independent interpretation of EKG shows sinus rhythm without ST or T wave changes concerning for acute ischemia. UT, QRS, QT intervals within normal limits. [place] normal. Heart score 3. Patient was placed in observation beginning at 6:45 PM in order to rule out evolving DE with serial troponins and determine need for admission versus home-going. The patient was provided serial exams and monitoring while awaiting results. Independent interpretation of results demonstrated negative delta troponin. On reevaluation, patient still having pain. At this time, I feel patient is appropriate for admission. Total observation time 4 hours. Because patient high risk for clinical decompensation, deemed appropriate for inpatient admission. Results were relayed to patient who voiced understanding and patient was agreeable to inpatient admission and management. Patient was admitted to the hospital for further definitive management.
[2023-12-14] MEDS: MORPHINE 4MG/ML SYRINGE 2 MG IV (18:53)
[2023-12-14] MEDS: ONDANSETRON 4MG/2ML VIAL 4 MG IV (18:53)
[2023-12-14 19:22] LABS: NT Pro Brain Natriuretic Pep. < 20.0 pg/mL (0-125)
[2023-12-14 19:24] LABS: Troponin I < 0.01 ng/ml (0.00-0.034)
[2023-12-14 21:23] LABS: Troponin I < 0.01 ng/ml (0.00-0.034)
--- NOTE | 2023-12-14 22:09 | PC.NURSE ---
let the house supervisory know the pt was going to be admitted for unstable angina and would need a bed.
--- NOTE | 2023-12-14 22:12 | PC.NURSE ---
OBSERVATION ADMISSION TO 200 WITH UNSTABLE ANGINA TO SERVICE OF HOSPITALIST.
--- NOTE | 2023-12-14 22:39 | PC.NURSE ---
[id number] received phone report from gurvinder rn/ed nurse. patient is a 48 yo female. admission dx: unstable angina. s/p cardiac cath 1 week ago and received 1 stent. march transport via w/c.
--- NOTE | 2023-12-14 22:39 | PC.NURSE ---
called report to lacey hooper and answered all questions
[2023-12-14 22:40] VITALS: BP 118/75; PULSE 70; RESP 20; TEMP 36.7; O2SAT 96
--- NOTE | 2023-12-14 22:48 | P.HP_ITS ---
History of Present Illness *Admission Date: 12/14/23 *Reason for visit:: Chest pain *History of present illness: This is a 48-year-old obese female with PMHx of CAD with angina, s/p stent, HTN, HLD, prediabetes, GERD, current smoker and anxiety presenting with chest pain. Started about 3 days prior, has been waxing waning, today was constant and worsening. Starts in the middle of her chest, radiates to her left neck and left shoulder. Made worse with exertion and associated shortness of breath. Not made better by anything other than rest. She tried an aspirin and nitroglycerin today, helped intermittently, but came back with a vengeance, shortly thereafter. Denies vomiting, neurologic deficits, or any other concerns. Patient stated had a stent placed on , after a cardiac cath, at other hospital. Around that time, her stress test and ECHO was apparently normal per patient report. Admitted for further work up and management. [facility] Disclaimer: The information contained in this section may have been updated after the patient was seen, as this information can be updated by other users. Medical History (Updated 12/14/23 @ 23:50 by Dillan Moe APRN) Carpal tunnel syndrome of left wrist Cervical cancer GERD (gastroesophageal reflux disease) Hypertension Hypoglycemia Ovarian cancer Surgical History (Updated 12/14/23 @ 23:05 by Marian Vera RN) H/O LEEP History of History of cardiac cath Social History (Updated 12/14/23 @ 22:49 by Nereida Hu RN) Smoking Status: Former smoker alcohol intake: never current occupational status: employed Travel in the last 8 weeks: None Review of Systems Review of Systems Review of systems:: pertinent systems reviewed and negative unless documented below Meds Home Medications and Allergies Home Medications Medication Instructions Recorded Confirmed Type aspirin 81 mg tablet,delayed 81 mg PO DAILY Blood Thinner 12/14/23 12/15/23 History release atorvastatin 80 mg tablet 80 mg PO DAILY Cholesterol 12/14/23 12/15/23 History clopidogrel 75 mg tablet 75 mg PO DAILY Blood Thinner 12/14/23 12/15/23 History hydrochlorothiazide 25 mg tablet 25 mg PO DAILY Fluid 12/14/23 12/15/23 History hydroxyzine pamoate 50 mg capsule 50 mg PO TIDP PRN Anxiety 12/14/23 12/15/23 History metoprolol succinate 50 mg 50 mg PO DAILY High Blood Pressure 12/14/23 12/15/23 History tablet,extended release 24 hr pantoprazole 40 mg tablet,delayed 40 mg PO DAILY Acid Reflux 12/14/23 12/14/23 History release ranolazine 500 mg tablet,extended 500 mg PO BID Chest Pain 12/14/23 12/15/23 History release,12 hr topiramate 50 mg tablet 50 mg PO DAILY Pain 12/14/23 12/15/23 History amlodipine 10 mg tablet 10 mg PO DAILY High Blood Pressure 12/15/23 12/15/23 History buspirone 30 mg tablet 15 mg PO HS Anxiety 12/15/23 12/15/23 History isosorbide mononitrate 30 mg 30 mg PO DAILY Chest Pain 12/15/23 12/15/23 History tablet,extended release 24 hr New Prescriptions to Start Prescriptions: Allergies Allergy/AdvReac Type Severity Reaction Status Date / Time lisinopril Allergy Verified 04/11/23 16:40 oxycodone [From Percocet] Allergy Verified 04/11/23 16:40 Sulfa (Sulfonamide Allergy Verified 04/11/23 16:40 Antibiotics) Exam Data for Last 24 hours Vital signs and Labs for Last 24 Hours: Temp Pulse Resp BP Pulse Ox O2 Del Method 98.0 F 70 20 118/75 98 Room Air 12/14/23 22:40 12/14/23 22:40 12/14/23 22:40 12/14/23 22:40 12/14/23 18:31 12/14/23 22:40 Laboratory Results - last 24 hr 12/14/23 18:05: WBC 8.1, RBC 4.72, Hgb 14.8, Hct 43.7, MCV 92.5, MCH 31.4 H, MCHC 34.0, RDW 13.4, Plt Count 381, MPV 7.9, Neut % (Auto) 50.8, Lymph % (Auto) 41.4, [place] % (Auto) 5.9, Eos % (Auto) 1.1, Baso % (Auto) 0.9, Neut # (Auto) 4.1, Lymph # (Auto) 3.4, [place] # (Auto) 0.5, Eos # (Auto) 0.1, Baso # (Auto) 0.1, Sodium 138, Potassium 4.1, Chloride 102, Carbon Dioxide 27, Anion Gap 13.1, BUN 14, Creatinine 0.60, Estimated Creat Clear 144, Estimated GFR 107, Est GFR ( Amer) 129, Glucose 171 H, Calcium 9.2, Total Bilirubin 0.5, AST 34, ALT 55, Alkaline Phosphatase 141 H, Troponin I < 0.01, NT-Pro-B Natriuret Pep < 20.0, Total Protein 8.4 H, Albumin 4.6, Globulin 3.8 H, Albumin/Globulin Ratio 1.2 12/14/23 20:55: Troponin I < 0.01 I & O for Last 24 hours: Intake & Output 12/11/23 12/12/23 12/13/23 12/14/23 23:59 23:59 23:59 23:59 Weight 79.379 kg Constitutional Constitutional: mild distress, obese and cooperative *Routine HEENT Exam Head: Present normocephalic and atraumatic Eye: Present EOMI, PERRL and normal accommodation ENT: Present mucous membranes moist *Routine Neck Exam Neck: Present supple, full ROM and trachea midline *Routine Respiratory Exam Respiratory: Present normal respiratory effort, able to speak in complete sentences and symmetric chest movement; Absent respiratory distress *Routine Cardiovascular Exam Cardiovascular: Present RRR, Normal S1 and Normal S2 *Routine Abdominal Exam Abdominal: Present soft and normoactive bowel sounds; Absent organomegaly *Routine Rectal Exam Rectal:: deferred *Routine Genitalia Exam Genitalia:: deferred *Routine Extremities Exam Extremities: Present full ROM and pulses intact; Absent cyanosis, clubbing or edema *Routine Skin Exam Skin: Present intact, dry and warm *Routine Neurological Exam Neurological: Present alert, oriented X3, normal reflexes, moving all extremities and normal speech Routine Psychiatric Exam Psychiatric: Present normal thought process, cooperative, good judgment and anxious H&P: Result Imaging and Cardiology EKG: Status: image reviewed by me and Preliminary report Chest x-ray: Status: image reviewed by me, Preliminary report and final report Assessment and Plan *Assessment and plan (1) Chest pain: Status: Acute Qualifiers: Chest pain type: unspecified Qualified Code(s): R07.9 - Chest pain, unspecified Category: Medical Code(s): R07.9 - Chest pain, unspecified (2) Presence of stent in coronary artery in patient with coronary artery disease: Status: Acute Category: Medical Code(s): I25.10 - Atherosclerotic heart disease of [place] coronary artery without angina pectoris; Z95.5 - Presence of coronary angioplasty implant and graft (3) Hypertension: Status: Acute Qualifiers: Hypertension type: unspecified Qualified Code(s): I10 - Essential (primary) hypertension Category: Medical Code(s): I10 - Essential (primary) hypertension (4) HLD (hyperlipidemia): Status: Acute Qualifiers: Hyperlipidemia type: unspecified Qualified Code(s): E78.5 - Hyperlipidemia, unspecified Category: Medical Code(s): E78.5 - Hyperlipidemia, unspecified (5) GERD (gastroesophageal reflux disease): Status: Acute Qualifiers: Esophagitis presence: esophagitis presence not specified Qualified Code(s): K21.9 - Gastro-esophageal reflux disease without esophagitis Category: Medical Code(s): K21.9 - Gastro-esophageal reflux disease without esophagitis (6) Current smoker: Status: Acute Category: Social Hx Code(s): F17.200 - Nicotine dependence, unspecified, uncomplicated (7) Obesity (BMI 30-39.9): Status: Acute Category: Medical Code(s): E66.9 - Obesity, unspecified Plan 48-year-old obese female with PMHx of CAD with angina, s/p stent, HTN, HLD, prediabetes, GERD, current smoker and anxiety presenting with chest pain. Started about 3 days prior, has been waxing waning, today was constant and worsening. Starts in the middle of her chest, radiates to her left neck and left shoulder. On arrival labs was unremarkable. initial troponin negative. EKG negative for acute ischemic changes. CXR negatives. Imaging reviewed. Discussed with ER provider. Due to moderate cardiac risk patient was admitted to rule out ACS. Plan as follow: - Intermittent chest pain in a setting of CAD s/p stent: to rule out ACS Admit patient for continuous cardiac telemetry. [facility] Cardiology consult Monitor for CP, heart rate, BP and vital signs per unit protocol Serial troponin. Obtain morning baseline. Including PT/INR lipid profile and A1c EKG and chest x-ray reviewed negative Resume home ranolazine twice daily. Resume Plavix Nitro sublingual as needed -Hypertension: Patient on amlodipine and metoprolol Conditions controlled. Resume home medication -Hyperlipidemia: Atorvastatin and aspirin Current smoker: On nicotine patch,. Education provided for for smoking cessation -Obesity: Encouraged for weight loss. PCP to follow-up abnormal BMI On Plavix. Protonix for GI bleed protection and GERD Full code Attending attestation Patient was seen and evaluated at the bedside myself, agree with FLASH note.
--- NOTE | 2023-12-14 22:54 | PC.NURSE ---
Patient arrived to floor via wheelchair from ED at 22:53.
[2023-12-14 22:55] VITALS: O2SAT 98
[2023-12-14 23:01] LABS: INR 0.93 (0.9-1.1); Prothrombin Time 10.1 seconds (10.1-12.5)
[2023-12-14 23:06] VITALS: BP 118/75; PULSE 67; RESP 14; TEMP 36.4; O2SAT 98; BMI 48.0
[2023-12-14 23:45] VITALS: PULSE 72
[2023-12-14] MEDS: RANOLAZINE 500MG ER TABLET 500 MG PO (23:57)
[2023-12-15] VITALS (10 sets, daily range): BP systolic 113–130; BP diastolic 68–88; PULSE 66–80; RESP 14–17; TEMP 36.8–36.9; O2SAT 96–100; BMI 48.0
[2023-12-15 01:19] LABS: Troponin I < 0.01 ng/ml (0.00-0.034)
--- NOTE | 2023-12-15 02:16 | PC.NURSE ---
PATIENT STATES DID NOT HAVE A CARDIAC CATH LAST WEEK BUT A YR AGO 2022.
--- NOTE | 2023-12-15 02:39 | PC.NURSE ---
PATIENT DENIES CP/SOA/DISCOMFORT AT THIS TIME. NAD. AMBULATORY TO BR INDEPENDENTLY. NSR ON TELE. CARDIOLOGY CONSULT PENDING.
--- NOTE | 2023-12-15 06:41 | PC.NURSE ---
NO CHEST PAIN, SOA, NAUSEA ETC SINCE ADMISSION. NSR ON TELE. HAS HAD AN UNEVENTFUL NIGHT. FAMILY MEMBER AT BEDSIDE.
[2023-12-15 07:04] LABS: Basophils # 0.1 K/mm3 (0-0.2); Basophils % 0.6 % (0.1-2.0); Eosinophils # 0.1 K/mm3 (0.0-0.4); Eosinophils % 1.1 % (0.1-12.0); Hematocrit 37.6 % (37.0-47.0); Lymphocytes # 3.5 K/mm3 (0.7-4.5); Lymphocytes % 45.1 % (10-50); Mean Corpuscular HGB Conc 33.9 g/dL (31.8-35.4); Mean Corpuscular Hemoglobin 31.7 pg (27.0-31.2); Mean Corpuscular Volume 93.4 fl (81-99); Mean Platelet Volume 8.1 fl (7.4-10.4); Monocytes # 0.7 K/mm3 (0.1-1.0); Monocytes % 8.4 % (1.7-9.3); Neutrophils # 3.5 K/mm3 (1.8-7.8); Neutrophils % 44.8 % (37.0-80.0); Platelet Count 336 K/mm3 (142-424); Red Blood Count 4.03 M/mm3 (4.20-5.40); Red Cell Distribution Width 13.6 % (11.5-17.5); White Blood Count 7.8 K/mm3 (4.8-10.8)
[2023-12-15 07:08] LABS: Alanine Aminotransferase 40 U/L (12-78); Albumin Level 3.6 g/dl (3.5-5.0); Albumin/Globulin Ratio 1.2 (1.1-1.8); Alkaline Phosphatase 108 U/L (38-126); Anion Gap 10.6 mEq/L (5-15); Aspartate Amino Transferase 24 U/L (14-36); Bilirubin,Total 0.3 mg/dl (0.2-1.3); Blood Urea Nitrogen 18 mg/dl (7-17); Calcium 8.7 mg/dl (8.4-10.2); Carbon Dioxide 27 mmol/L (22.0-30.0); Chloride 104 mmol/L (98-107); Chol/HDL Ratio 4.6 (1-3.5); Cholesterol 151 mg/dl (140-200); Creatinine Clearance Estimated 59 mL/min (50-200); Estimated Glomerular Filt Rate 77 ml/min (>60); GFR (African American) 93 ML/MIN (>60); Globulin 2.9 g/dL (1.3-3.2); Glucose 106 mg/dl (74-100); HDL Cholesterol 33 mg/dl (40-60); Magnesium 2.1 mg/dl (1.6-2.3); Potassium 3.6 mmoL/L (3.5-5.1); Sodium 138 mmol/L (136-145); Total Protein,Serum 6.5 g/dl (6.3-8.2); Triglycerides 392 mg/dl (30-150); VLDL Cholesterol 78 mg/dL (0-40)
[2023-12-15 07:18] LABS: Hemoglobin 12.8 g/dL (12.2-16.2)
[2023-12-15 07:19] LABS: Direct LDL Cholesterol 76.39 mg/dL (100-129)
--- NOTE | 2023-12-15 09:50 | HMH.PHAINT1 ---
Pharmacy Intervention Comments: MEDICATION RECONCILIATION COMPLETE USING EXTERNAL PHARMACY FILL HISTORY.
[2023-12-15] MEDS: hydroCHLOROthiazide 25MG TABLET 25 MG PO (09:51)
[2023-12-15] MEDS: ASPIRIN EC 81MG TABLET 81 MG PO (09:51)
[2023-12-15] MEDS: METOPROLOL SUCCINATE XL 50MG TABLET 50 MG PO (09:51)
[2023-12-15] MEDS: RANOLAZINE 500MG ER TABLET 500 MG PO ×2 (09:52→20:32)
[2023-12-15] MEDS: TOPIRAMATE 25MG TABLET 50 MG PO (09:52)
[2023-12-15 10:55] LABS: Hemoglobin A1C 6.6 % (4.0-6.0)
[2023-12-15 11:00] LABS: 25-OH Vitamin D, Total 19.5 ng/mL (30-100)
[2023-12-15] MEDS: NITROGLYCERIN 0.4MG SL TABLET 0.400000000000000022 MG SL ×2 (11:01→12:25)
--- NOTE | 2023-12-15 11:08 | ECG_ITS ---
APPROVED REPORT Exam: Resting ECG HR:77 bpm ECG Measurements Heart Rate 77 AXES TN 148 P 38 QRSd 101 QRS 2 QT 410 T 14 QTc 442 Conclusion SINUS RHYTHM POSSIBLE ANTERIOR MYOCARDIAL INFARCTION , PROBABLY OLD [30 ms Q WAVE IN V3/V4, OR R < 0.2 mV IN V4] POSSIBLE INFERIOR MYOCARDIAL INFARCTION , PROBABLY OLD [30 ms Q WAVE IN II/aVF] BORDERLINE ECG UNCONFIRMED REPORT Electronically signed by : Adolph Bennett MD 12/17/2023 17:32:42
[2023-12-15 12:14] LABS: Troponin I 0.03 ng/ml (0.00-0.034)
--- NOTE | 2023-12-15 14:35 | EXP.PN ---
Subjective *Date: 12/15/23 *Time: 14:35 Interval history: patient was seen and evaluated at the bedside. No reported acute events overnight, denies chest pain, shortness of breath, nausea, vomiting, abdominal pain. Exam Data for Last 24 hours Vital signs and Labs for Last 24 Hours: Temp Pulse Resp BP Pulse Ox O2 Del Method 98.3 F 74 16 130/85 100 Room Air 12/15/23 11:02 12/15/23 12:00 12/15/23 11:02 12/15/23 11:02 12/15/23 11:02 12/15/23 11:02 Laboratory Results - last 24 hr 12/14/23 18:05: WBC 8.1, RBC 4.72, Hgb 14.8, Hct 43.7, MCV 92.5, MCH 31.4 H, MCHC 34.0, RDW 13.4, Plt Count 381, MPV 7.9, Neut % (Auto) 50.8, Lymph % (Auto) 41.4, [place] % (Auto) 5.9, Eos % (Auto) 1.1, Baso % (Auto) 0.9, Neut # (Auto) 4.1, Lymph # (Auto) 3.4, [place] # (Auto) 0.5, Eos # (Auto) 0.1, Baso # (Auto) 0.1, PT 10.1, INR 0.93, Sodium 138, Potassium 4.1, Chloride 102, Carbon Dioxide 27, Anion Gap 13.1, BUN 14, Creatinine 0.60, Estimated Creat Clear 144, Estimated GFR 107, Est GFR ( Amer) 129, Glucose 171 H, Calcium 9.2, Total Bilirubin 0.5, AST 34, ALT 55, Alkaline Phosphatase 141 H, Troponin I < 0.01, NT-Pro-B Natriuret Pep < 20.0, Total Protein 8.4 H, Albumin 4.6, Globulin 3.8 H, Albumin/Globulin Ratio 1.2 12/14/23 20:55: Troponin I < 0.01 12/15/23 00:20: Troponin I < 0.01 12/15/23 06:48: WBC 7.8, RBC 4.03 L, Hgb 12.8 D, Hct 37.6, MCV 93.4, MCH 31.7 H, MCHC 33.9, RDW 13.6, Plt Count 336, MPV 8.1, Neut % (Auto) 44.8, Lymph % (Auto) 45.1, [place] % (Auto) 8.4, Eos % (Auto) 1.1, Baso % (Auto) 0.6, Neut # (Auto) 3.5, Lymph # (Auto) 3.5, [place] # (Auto) 0.7, Eos # (Auto) 0.1, Baso # (Auto) 0.1, Sodium 138, Potassium 3.6, Chloride 104, Carbon Dioxide 27, Anion Gap 10.6, BUN 18 H D, Creatinine 0.80 D, Estimated Creat Clear 59, Estimated GFR 77, Est GFR ( Amer) 93 D, Glucose 106 H D, Hemoglobin A1c 6.6 H, Calcium 8.7, Magnesium 2.1, Total Bilirubin 0.3, AST 24 D, ALT 40 D, Alkaline Phosphatase 108, Total Protein 6.5, Albumin 3.6 D, Globulin 2.9, Albumin/Globulin Ratio 1.2, Triglycerides 392 H, Cholesterol 151, LDL Cholesterol Direct 76.39 L, VLDL Cholesterol 78 H, HDL Cholesterol 33 L, Cholesterol/HDL Ratio 4.6 H, 25-OH Vitamin D Total 19.5 L 12/15/23 11:34: Troponin I 0.03 I & O for Last 24 hours: Intake & Output 12/12/23 12/13/23 12/14/23 12/15/23 23:59 23:59 23:59 23:59 Intake Total 1100 / 1100 Output Total 0 / 0 Balance - 1100 / 1100 Weight 108.2 kg 108.2 kg Constitutional Constitutional: no acute distress *Routine HEENT Exam Head: Present normocephalic Eye: Present EOMI and PERRL ENT: Present mucous membranes moist *Routine Neck Exam Neck: Present supple; Absent lymphadenopathy *Routine Respiratory Exam Respiratory: Present CTA bilaterally *Routine Cardiovascular Exam Cardiovascular: Present RRR *Routine Abdominal Exam Abdominal: Present soft and normoactive bowel sounds; Absent tenderness *Routine Extremities Exam Extremities: Absent cyanosis, clubbing or edema *Routine Skin Exam Skin: Present warm; Absent rash *Routine Neurological Exam Neurological: Present alert and oriented X3 Assessment and Plan *Assessment and plan (1) Chest pain: Status: Acute Qualifiers: Chest pain type: unspecified Qualified Code(s): R07.9 - Chest pain, unspecified Category: Medical Code(s): R07.9 - Chest pain, unspecified (2) Presence of stent in coronary artery in patient with coronary artery disease: Status: Acute Category: Medical Code(s): I25.10 - Atherosclerotic heart disease of [place] coronary artery without angina pectoris; Z95.5 - Presence of coronary angioplasty implant and graft (3) Hypertension: Status: Acute Qualifiers: Hypertension type: unspecified Qualified Code(s): I10 - Essential (primary) hypertension Category: Medical Code(s): I10 - Essential (primary) hypertension (4) HLD (hyperlipidemia): Status: Acute Qualifiers: Hyperlipidemia type: unspecified Qualified Code(s): E78.5 - Hyperlipidemia, unspecified Category: Medical Code(s): E78.5 - Hyperlipidemia, unspecified (5) GERD (gastroesophageal reflux disease): Status: Acute Qualifiers: Esophagitis presence: esophagitis presence not specified Qualified Code(s): K21.9 - Gastro-esophageal reflux disease without esophagitis Category: Medical Code(s): K21.9 - Gastro-esophageal reflux disease without esophagitis (6) Current smoker: Status: Acute Category: Social Hx Code(s): F17.200 - Nicotine dependence, unspecified, uncomplicated (7) Obesity (BMI 30-39.9): Status: Acute Category: Medical Code(s): E66.9 - Obesity, unspecified Plan 48-year-old obese female with PMHx of CAD with angina, s/p stent, HTN, HLD, prediabetes, GERD, current smoker and anxiety presenting with chest pain. Started about 3 days prior, has been waxing waning, today was constant and worsening. Starts in the middle of her chest, radiates to her left neck and left shoulder. On arrival labs was unremarkable. initial troponin negative. EKG negative for acute ischemic changes. CXR negatives. Imaging reviewed. Discussed with ER provider. Due to moderate cardiac risk patient was admitted to rule out ACS. Plan as follow: - Intermittent chest pain in a setting of CAD s/p stent: Stable angina per patient NTG sublingual improved her CP every time it happens Cardiology consult, patient wishes to seen cardiology before discharge Monitor for CP, heart rate, BP and vital signs per unit protocol Serial troponin. - negative EKG and chest x-ray reviewed negative Resume home ranolazine twice daily. Resume Plavix Nitro sublingual as needed -Hypertension: Patient on amlodipine and metoprolol Conditions controlled. Resume home medication -Hyperlipidemia: Atorvastatin and aspirin Current smoker: On nicotine patch,. Education provided for for smoking cessation -Obesity: Encouraged for weight loss. PCP to follow-up abnormal BMI On Plavix. Protonix for GI bleed protection and GERD Full code Echo, cardiology consullt, ASA, Plavix and monitor on telemetry
[2023-12-15] MEDS: ACETAMINOPHEN 500MG TAB 500 MG PO ×2 (15:57→23:09)
[2023-12-15] MEDS: ONDANSETRON 4MG/2ML VIAL 4 MG IV ×2 (15:58→23:09)
[2023-12-15] MEDS: CLOPIDOGREL 75MG TAB 75 MG PO (18:24)
[2023-12-15] MEDS: AMLODIPINE 10MG TABLET 10 MG PO (18:24)
--- NOTE | 2023-12-15 18:42 | PC.NURSE ---
Patient a&ox4 and has had c/o chest pain with nitroglycerin helping pain. Patient's vss.
[2023-12-15] MEDS: ATORVASTATIN 40MG TABLET 80 MG PO (20:32)
[2023-12-15] MEDS: ALUMINUM/MAGNESIUM/SIMETHICONE 30ML UDC 30 ML PO (20:36)
[2023-12-16] VITALS (9 sets, daily range): BP systolic 99–118; BP diastolic 68–83; PULSE 66–79; RESP 16–18; TEMP 36.6–37; O2SAT 97–100; BMI 48.2
[2023-12-16] MEDS: BELLADONNA ALKALOIDS 60 ML ML PO ×2 (01:16→23:20)
--- NOTE | 2023-12-16 05:48 | PC.NURSE ---
Patient did not sleep well tonight. Had alot of indigestion and nausea. Finally after a GI cocktail her stomach calmed down and she was able to rest. Patient still has a headache, gave PRN for that. Has not complained since. No other issues through the night.
[2023-12-16] MEDS: ASPIRIN EC 81MG TABLET 81 MG PO (09:11)
[2023-12-16] MEDS: hydroCHLOROthiazide 25MG TABLET 25 MG PO (09:12)
[2023-12-16] MEDS: METOPROLOL SUCCINATE XL 50MG TABLET 50 MG PO (09:12)
[2023-12-16] MEDS: TOPIRAMATE 25MG TABLET 50 MG PO (09:12)
[2023-12-16] MEDS: RANOLAZINE 500MG ER TABLET 500 MG PO ×2 (09:12→20:04)
[2023-12-16] MEDS: ACETAMINOPHEN 500MG TAB 500 MG PO ×2 (09:13→15:16)
--- NOTE | 2023-12-16 10:17 | ECG_ITS ---
APPROVED REPORT Exam: Resting ECG HR:72 bpm ECG Measurements Heart Rate 72 AXES [place] 153 P 52 QRSd 99 QRS 10 QT 388 T 2 QTc 412 Conclusion SINUS RHYTHM NORMAL ECG UNCONFIRMED REPORT Electronically signed by : Adolph Bennett MD 12/17/2023 17:30:08
[2023-12-16] MEDS: hydrOXYzine pamoate 25MG CAPSULE 50 MG PO ×2 (13:14→21:21)
--- NOTE | 2023-12-16 14:02 | P.PN_ITS ---
Subjective *Date: 12/16/23 *Time: 14:02 Interval history: patient was seen and evaluated at the bedside. Per patient she had mutiple chest pain episodes last 24 hrs and were relieved after SL NTG, she has headache today morning, denies chest pain, shortness of breath, nausea, vomiting, abdominal pain. Exam Data for Last 24 hours Vital signs and Labs for Last 24 Hours: Temp Pulse Resp BP Pulse Ox O2 Del Method 98.3 F 70 16 116/78 99 Room Air 12/16/23 11:00 12/16/23 12:00 12/16/23 11:00 12/16/23 11:00 12/16/23 11:00 12/16/23 12:05 I & O for Last 24 hours: Intake & Output 12/13/23 12/14/23 12/15/23 12/16/23 23:59 23:59 23:59 23:59 Intake Total 1720 / 1720 940 / 940 Output Total 1 / 1 0 / 0 0 / 0 Balance -1 / 359 1720 / 1720 940 / 940 Weight 108.2 kg 108.2 kg 108.4 kg Constitutional Constitutional: no acute distress *Routine HEENT Exam Head: Present normocephalic Eye: Present EOMI and PERRL ENT: Present mucous membranes moist *Routine Neck Exam Neck: Present supple; Absent lymphadenopathy *Routine Respiratory Exam Respiratory: Present CTA bilaterally *Routine Cardiovascular Exam Cardiovascular: Present RRR *Routine Abdominal Exam Abdominal: Present soft and normoactive bowel sounds; Absent tenderness *Routine Extremities Exam Extremities: Absent cyanosis, clubbing or edema *Routine Skin Exam Skin: Present warm; Absent rash *Routine Neurological Exam Neurological: Present alert and oriented X3 Assessment and Plan *Assessment and plan (1) Chest pain: Status: Acute Qualifiers: Chest pain type: unspecified Qualified Code(s): R07.9 - Chest pain, unspecified Category: Medical Code(s): R07.9 - Chest pain, unspecified (2) Presence of stent in coronary artery in patient with coronary artery disease: Status: Acute Category: Medical Code(s): I25.10 - Atherosclerotic heart disease of [place] coronary artery without angina pectoris; Z95.5 - Presence of coronary angioplasty implant and graft (3) Hypertension: Status: Acute Qualifiers: Hypertension type: unspecified Qualified Code(s): I10 - Essential (primary) hypertension Category: Medical Code(s): I10 - Essential (primary) hypertension (4) HLD (hyperlipidemia): Status: Acute Qualifiers: Hyperlipidemia type: unspecified Qualified Code(s): E78.5 - Hyperlipidemia, unspecified Category: Medical Code(s): E78.5 - Hyperlipidemia, unspecified (5) GERD (gastroesophageal reflux disease): Status: Acute Qualifiers: Esophagitis presence: esophagitis presence not specified Qualified Code(s): K21.9 - Gastro-esophageal reflux disease without esophagitis Category: Medical Code(s): K21.9 - Gastro-esophageal reflux disease without esophagitis (6) Current smoker: Status: Acute Category: Social Hx Code(s): F17.200 - Nicotine dependence, unspecified, uncomplicated (7) Obesity (BMI 30-39.9): Status: Acute Category: Medical Code(s): E66.9 - Obesity, unspecified Plan 48-year-old obese female with PMHx of CAD with angina, s/p stent, HTN, HLD, prediabetes, GERD, current smoker and anxiety presenting with chest pain. Started about 3 days prior, has been waxing waning, today was constant and worsening. Starts in the middle of her chest, radiates to her left neck and left shoulder. On arrival labs was unremarkable. initial troponin negative. EKG negative for acute ischemic changes. CXR negatives. Imaging reviewed. Discussed with ER provider. Due to moderate cardiac risk patient was admitted to rule out ACS. Plan as follow: - Intermittent chest pain in a setting of CAD s/p stent: Stable angina per patient NTG sublingual improved her CP every time it happens Cardiology consult, patient wishes to seen cardiology before discharge Monitor for CP, heart rate, BP and vital signs per unit protocol Serial troponin. - negative EKG and chest x-ray reviewed negative Resume home ranolazine twice daily. Resume Plavix Nitro sublingual as needed -Hypertension: Patient on amlodipine and metoprolol Conditions controlled. Resume home medication -Hyperlipidemia: Atorvastatin and aspirin Current smoker: On nicotine patch,. Education provided for for smoking cessation -Obesity: Encouraged for weight loss. PCP to follow-up abnormal BMI On Plavix. Protonix for GI bleed protection and GERD Full code Echo, cardiology consullt, ASA, Plavix and monitor on telemetry NPO after MN, in anticipation of Stress test or Cardiac cath
--- NOTE | 2023-12-16 17:08 | PC.NURSE ---
PT IS RESTING IN BED. ALERT AND ORIENTED X4. EATING AND DRINKING WELL. MEDICATED PER MAR FOR HEADACHE. PT ASKED FOR HER VISTARIL TO BE ORDERED THIS SHIFT B/C SHE TAKES IT HOME TID. LUNG SOUNDS CLEAR. ABDOMEN SOFT/NON TENDER WITH ACTIVE BOWEL SOUNDS. NSR ON TELEMETRY. WILL CONTINUE TO MONITOR.
[2023-12-16] MEDS: CLOPIDOGREL 75MG TAB 75 MG PO (17:57)
[2023-12-16] MEDS: AMLODIPINE 10MG TABLET 10 MG PO (17:57)
[2023-12-16] MEDS: ONDANSETRON 4MG/2ML VIAL 4 MG IV (19:22)
[2023-12-16] MEDS: PANTOPRAZOLE 40MG TABLET 40 MG PO (20:04)
[2023-12-16] MEDS: ALUMINUM/MAGNESIUM/SIMETHICONE 30ML UDC 30 ML PO (20:12)
--- NOTE | 2023-12-16 22:30 | PC.NURSE ---
Addendum entered by Madhuri Decker RN 12/17/23 05:09: Once patient received the GI cocktail patient chest pain subsided. Patient stated she felt a lot better. After that the patient was able to rest and sleep the rest of the night. No other complaints from the patient Original Note: Patient complained of chest pain at 2100. Patient stated that it was a sharp 10/10 pain in the middle of the chest. It does not radiate anywhere. initially the pain started in under the Left breast and them moved to the middle of the chest where it remained and got worse. RN obtained an EKG that read NSR, see paperchart, and obtained vitals. BP 126/75 HR 79 O2 985 on RA. RN notified EVALUATION ASSISTANT director money and provider wants to continue to monitor. RN did speak with patient regarding on continuing to monitor. RN also got history from patient regarding this matter. patient stated that she had a scope done at [facility] and that scope showed issues involving her gallbladder and liver. RN did assess her ABD and patient was soft throughout her abd but more firm in the Epigastric region and LUQ. Patient also stated that it hurt when i lightly pressed on that location. Patient has been continually nausea with indigestion worse after she eats. RN told patient that she would pass this along to dayshift in report so that they can talk about it in rounds with the doctor in the morning.
[2023-12-16] MEDS: ATORVASTATIN 40MG TABLET 80 MG PO (23:09)
[2023-12-16] MEDS: BUSPIRONE HCL 10 MG TABLET 15 MG PO (23:10)
[2023-12-17] VITALS: BP 130/57; PULSE 72; PULSE 73; RESP 17; TEMP 36.6; O2SAT 98
[2023-12-17 04:00] VITALS: BP 118/76; PULSE 78; PULSE 84; RESP 17; TEMP 36.6; O2SAT 96; BMI 48.2
[2023-12-17 06:36] LABS: Basophils % 0.6 % (0.1-2.0); Eosinophils # 0.1 K/mm3 (0.0-0.4); Hemoglobin 12.5 g/dL (12.2-16.2); Lymphocytes # 2.6 K/mm3 (0.7-4.5); Lymphocytes % 45.3 % (10-50); Mean Corpuscular HGB Conc 33.8 g/dL (31.8-35.4); Mean Corpuscular Hemoglobin 31.2 pg (27.0-31.2); Mean Corpuscular Volume 92.4 fl (81-99); Mean Platelet Volume 8.1 fl (7.4-10.4); Monocytes # 0.5 K/mm3 (0.1-1.0); Monocytes % 9.1 % (1.7-9.3); Neutrophils # 2.6 K/mm3 (1.8-7.8); Neutrophils % 44.1 % (37.0-80.0); Platelet Count 325 K/mm3 (142-424); Red Blood Count 4.01 M/mm3 (4.20-5.40); Red Cell Distribution Width 13.3 % (11.5-17.5); White Blood Count 5.8 K/mm3 (4.8-10.8)
[2023-12-17 06:48] LABS: Alanine Aminotransferase 43 U/L (12-78); Albumin Level 3.8 g/dl (3.5-5.0); Albumin/Globulin Ratio 1.4 (1.1-1.8); Alkaline Phosphatase 100 U/L (38-126); Anion Gap 10.6 mEq/L (5-15); Aspartate Amino Transferase 27 U/L (14-36); Bilirubin,Total 0.4 mg/dl (0.2-1.3); Blood Urea Nitrogen 15 mg/dl (7-17); Calcium 8.3 mg/dl (8.4-10.2); Carbon Dioxide 27 mmol/L (22.0-30.0); Chloride 104 mmol/L (98-107); Chol/HDL Ratio 4.1 (1-3.5); Cholesterol 156 mg/dl (140-200); Creatinine Clearance Estimated 52 mL/min (50-200); Estimated Glomerular Filt Rate 67 ml/min (>60); GFR (African American) 81 ML/MIN (>60); Globulin 2.7 g/dL (1.3-3.2); Glucose 100 mg/dl (74-100); HDL Cholesterol 38 mg/dl (40-60); Magnesium 2.4 mg/dl (1.6-2.3); Potassium 3.6 mmoL/L (3.5-5.1); Sodium 138 mmol/L (136-145); Total Protein,Serum 6.5 g/dl (6.3-8.2); Triglycerides 249 mg/dl (30-150); VLDL Cholesterol 50 mg/dL (0-40)
[2023-12-17 06:59] LABS: Direct LDL Cholesterol 74.94 mg/dL (100-129)
[2023-12-17 08:00] VITALS: BP 104/70; PULSE 70; PULSE 78; RESP 19; TEMP 36.6; O2SAT 97
[2023-12-17] MEDS: RANOLAZINE 500MG ER TABLET 500 MG PO (08:36)
[2023-12-17] MEDS: METOPROLOL SUCCINATE XL 50MG TABLET 50 MG PO (08:36)
[2023-12-17] MEDS: ASPIRIN EC 81MG TABLET 81 MG PO (08:36)
[2023-12-17] MEDS: hydroCHLOROthiazide 25MG TABLET 25 MG PO (08:36)
[2023-12-17] MEDS: TOPIRAMATE 25MG TABLET 50 MG PO (08:37)
--- NOTE | 2023-12-17 09:17 | CA_ITS ---
APPROVED REPORT EXAM: Comprehensive 2D, Doppler, and color-flow Echocardiogram Internal Medicine Veterinary Technician: Ivonne Diana CRT Ht: 4 ft 11 in Wt: 238lbs BSA: 1.99 BP: 138/95 mmHg Indications: Chest Pain, Shortness of Breath, Obesity, Hyperlipidemia, Hypertension/HDD, stent 2D Dimensions LA Volume 21.10 mL LA Volume Index 10.40 mL/m2 (M/F) 16-34 M-Mode Dimensions RVDd 2.09 cm (0.9-2.6) LA Diam 3.08 cm (1.9-4.0) LVDd 2.89 cm (3.5-5.7) LVDs 1.90 cm (3.5-5.7) IVSd 1.96 cm (0.6-1.1) PWd 0.72 cm (0.6-1.1) EF (Teich) 64.90% FS 34.30% EDV (Teich) 31.90 mL ESV (Teich) 11.20 mL LV Diastology E Decel Time 193 (160-240 msec) E/A Ratio 1.04 MED A' 6.80 cm/s LAT A' 8.30 cm/s Aortic Valve AO Peak GR. 6.30 mmHg Mitral Valve MV A Velocity 81.0 (40-130 cm/s) E/A Ratio 1.04 Tricuspid Valve TR P. Velocity 145.00 cm/s RAP Estimate 10.00 mmHg RVSP 18.40 mmHg Left Ventricle The left ventricle is normal size. The left ventricular systolic function is normal. The left ventricular ejection fraction is within the normal range. There is increased LV wall thickness. There is normal LV segmental wall motion. The left ventricular diastolic function is normal. LVEF is 55%. Right Ventricle Right ventricle is mildly dilated. The right ventricular systolic function is normal. Atria The left atrium size is normal. The right atrium size is normal. There is no Doppler evidence of interatrial shunt. Aortic Valve The aortic valve is mildly thickened. There is no aortic valvular stenosis. No aortic regurgitation is present. Mitral Valve The mitral valve leaflets are mildly thickened. No evidence of mitral valve stenosis. Mild mitral regurgitation. Tricuspid Valve The tricuspid valve leaflets are thin and pliable. Trace tricuspid regurgitation. There is insufficient TR jet to estimate RVSP. Pulmonic Valve The pulmonary valve is normal in structure. Trace pulmonic regurgitation. Great Vessels The aortic root is normal in size. The ascending aorta is not well visualized. IVC is normal in size and collapses >50% with inspiration. Pericardium There is no pericardial effusion. Other Information Study Quality: Fair Conclusion Normal biventricular systolic function. Mild RV dilation. No significant valvular stenosis or regurgitation. Electronically signed by : Allison Prado MD 12/18/2023 11:19:32
--- NOTE | 2023-12-17 09:52 | P.CONCA_ITS ---
History of Present Illness History of Present Illness Consult date: 12/17/23 Requesting physician: Chidi Davila Consult reason: chest pain Chief complaint: chest pain History of present illness: 48-year-old white female with history of CAD, BMI 48, hypertension, hypercholesterolemia, tobacco use, GERD. Has history of stent November [address] Gore in [place] but has had poor follow-up since that time. Presented to ER complaining of chest pain. She describes several months of exertional chest discomfort described as pressure radiating to her neck and arms worse with activity sometimes relieved with rest sometimes relieved with GI medications. Her symptoms were worse on day of admission so she presented to the emergency room where she had normal serial troponins and EKG but she was admitted due to her cardiac history. She received GI cocktail which completely resolved her symptoms this admission. She also endorses worsening dyspnea on exertion for the past several months which is similar to her symptoms prior to heart cath last year. [facility] Disclaimer: The information contained in this section may have been updated after the patient was seen, as this information can be updated by other users. Medical History Carpal tunnel syndrome of left wrist Cervical cancer GERD (gastroesophageal reflux disease) Hypertension Hypoglycemia Ovarian cancer Surgical History H/O LEEP History of History of cardiac cath Social History Smoking Status: Former smoker alcohol intake: never current occupational status: employed Travel in the last 8 weeks: None Review of Systems Constitutional Constitutional: Reports fatigue and Denies weakness Eyes Eyes: Denies loss of vision ENT Ears, Nose, Mouth, and Throat: Denies hearing loss and Denies vertigo *Cardiovascular Cardiovascular: Reports chest pain, Reports dyspnea and Denies syncope *Respiratory Respiratory: Denies cough and Reports dyspnea *Gastrointestinal Gastrointestinal: Reports abdominal pain, Denies change in stool character, Reports dyspepsia, Denies nausea and Denies vomiting *Musculoskeletal Musculoskeletal: Denies muscle weakness Integumentary/Breasts Skin/Breast: Denies changing lesions *Neurologic Neurologic: Denies loss of vision, Denies syncope, Denies vertigo and Denies weakness Endocrine Endocrine: Reports fatigue Exam Data for Last 24 hours Vital signs and Labs for Last 24 Hours: Temp Pulse Resp BP Pulse Ox O2 Del Method 97.9 F 78 19 104/70 L 97 Room Air 12/17/23 08:00 12/17/23 08:00 12/17/23 08:00 12/17/23 08:00 12/17/23 08:00 12/17/23 08:00 Laboratory Results - last 24 hr 12/17/23 05:18: WBC 5.8 D, RBC 4.01 L, Hgb 12.5, Hct 37.0, MCV 92.4, MCH 31.2, MCHC 33.8, RDW 13.3, Plt Count 325, MPV 8.1, Neut % (Auto) 44.1, Lymph % (Auto) 45.3, [place] % (Auto) 9.1, Eos % (Auto) 1.0, Baso % (Auto) 0.6, Neut # (Auto) 2.6, Lymph # (Auto) 2.6, [place] # (Auto) 0.5, Eos # (Auto) 0.1, Baso # (Auto) 0.0, Sodium 138, Potassium 3.6, Chloride 104, Carbon Dioxide 27, Anion Gap 10.6, BUN 15, Creatinine 0.90, Estimated Creat Clear 52, Estimated GFR 67, Est GFR ( Amer) 81, Glucose 100, Calcium 8.3 L, Magnesium 2.4 H D, Total Bilirubin 0.4, AST 27, ALT 43, Alkaline Phosphatase 100, Total Protein 6.5, Albumin 3.8, Globulin 2.7, Albumin/Globulin Ratio 1.4, Triglycerides 249 H, Cholesterol 156, LDL Cholesterol Direct 74.94 L, VLDL Cholesterol 50 H, HDL Cholesterol 38 L, Cholesterol/HDL Ratio 4.1 H I & O for Last 24 hours: Intake & Output 12/14/23 12/15/23 12/16/23 12/17/23 23:59 23:59 23:59 23:59 Intake Total 1720 / 1720 1330 / 1330 Output Total / 0 / 0 0 / 0 0 / 0 Balance - 1720 / 1720 1330 / 1330 0 / 0 Weight 238 lb 8.642 oz 238 lb 8.642 oz 238 lb 15.697 oz 238 lb 15.697 oz Constitutional Constitutional: no acute distress, obese and cooperative *Routine HEENT Exam Eye: Present PERRL *Routine Respiratory Exam Respiratory: Present CTA bilaterally; Absent accessory muscle use, wheezes or crackles *Routine Cardiovascular Exam Cardiovascular: Present RRR, Normal S1 and Normal S2; Absent murmur, gallop or rubs *Routine Abdominal Exam Abdominal: Present soft and tenderness (Epigastric) *Routine Extremities Exam Extremities: Present pulses intact; Absent cyanosis or edema *Routine Skin Exam Skin: Present intact; Absent erythema or wounds *Routine Neurological Exam Neurological: Present alert and oriented X3 Routine Psychiatric Exam Psychiatric: Present cooperative Meds Home Medications and Allergies Home Medications Medication Instructions Recorded Confirmed Type aspirin 81 mg tablet,delayed 81 mg PO DAILY Blood Thinner 12/14/23 12/15/23 History release atorvastatin 80 mg tablet 80 mg PO DAILY Cholesterol 12/14/23 12/15/23 History clopidogrel 75 mg tablet 75 mg PO DAILY Blood Thinner 12/14/23 12/15/23 History hydrochlorothiazide 25 mg tablet 25 mg PO DAILY Fluid 12/14/23 12/15/23 History hydroxyzine pamoate 50 mg capsule 50 mg PO TIDP PRN Anxiety 12/14/23 12/15/23 History metoprolol succinate 50 mg 50 mg PO DAILY High Blood Pressure 12/14/23 12/15/23 History tablet,extended release 24 hr ranolazine 500 mg tablet,extended 500 mg PO BID Chest Pain 12/14/23 12/15/23 History release,12 hr topiramate 50 mg tablet 50 mg PO DAILY Pain 12/14/23 12/15/23 History amlodipine 10 mg tablet 10 mg PO DAILY High Blood Pressure 12/15/23 12/15/23 History buspirone 30 mg tablet 15 mg PO HS Anxiety 12/15/23 12/15/23 History isosorbide mononitrate 30 mg 30 mg PO DAILY Chest Pain 12/15/23 12/15/23 History tablet,extended release 24 hr pantoprazole 40 mg tablet,delayed 40 mg PO BID Acid Reflux 30 days 12/17/23 Rx release #60 tabs New Prescriptions to Start Prescriptions: pantoprazole Pepe Enriquez Allergies Allergy/AdvReac Type Severity Reaction Status Date / Time lisinopril Allergy Verified 04/11/23 16:40 oxycodone [From Percocet] Allergy Verified 04/11/23 16:40 Sulfa (Sulfonamide Allergy Verified 04/11/23 16:40 Antibiotics) Assessment and Plan *Assessment and plan (1) GERD (gastroesophageal reflux disease): Status: Acute Qualifiers: Esophagitis presence: esophagitis presence not specified Qualified Code(s): K21.9 - Gastro-esophageal reflux disease without esophagitis Category: Medical Code(s): K21.9 - Gastro-esophageal reflux disease without esophagitis (2) Angina pectoris: Status: Acute Category: Medical Code(s): I20.9 - Angina pectoris, unspecified (3) Presence of stent in coronary artery in patient with coronary artery disease: Status: Acute Category: Medical Code(s): I25.10 - Atherosclerotic heart disease of [place] coronary artery without angina pectoris; Z95.5 - Presence of coronary angioplasty implant and graft Plan CAD, [place] with class 3 angina pectoris - stent 12/18 Dr. Gore in [place], details of this are uncelars - she presents here with exertional CP but symptoms relieved with GI cocktail and has epigastric tenderness - normal serial Trop and EKG Plan: Cont DAPT, BB, Statin, Imdur, Ranexa. Continue GI w/u. Consider OP imaging vs IP LHC as she also c/o severe worsening JULIO similar to sx prior to stenting last year GERD - pt has epigastric tenderness, freq burning CP, already on 2 PPI - sx relieved here with GI cocktail - she reports recent EGD with bile flowing retrograde into her stomach, has f/u with GI planned Plan: Defer to primary service Obesity, BMI 48 - recommend aggressive wt loss via diet and exercise - consider OP GLP-1 Htn - well controlled, continue current meds Chol - LDL 74, cont statin DM-II - well controlled, A1C 6 - cont current meds CV summary: Patient is stable and asymptomatic at this time with normal serial troponin and EKG. I think her symptoms are largely GI driven but cannot rule out possibility of worsening underlying ischemia due to dyspnea on exertion and exertional chest pains. ECHO here shows normal EF, no WMA. Cont current meds, arrange OP f/u and Cath.
[2023-12-17 09:55] LABS: Troponin I < 0.01 ng/ml (0.00-0.034)
[2023-12-17 12:00] VITALS: BP 112/74; PULSE 55; PULSE 70; RESP 16; O2SAT 99
--- NOTE | 2023-12-17 12:10 | P.DS_ITS ---
General Admission date:: 12/14/23 Discharge date: 12/17/23 HPI HPI HPI: This is a 48-year-old obese female with PMHx of CAD with angina, s/p stent, HTN, HLD, prediabetes, GERD, current smoker and anxiety presenting with chest pain. Started about 3 days prior, has been waxing waning, today was constant and worsening. Starts in the middle of her chest, radiates to her left neck and left shoulder. Made worse with exertion and associated shortness of breath. Not made better by anything other than rest. She tried an aspirin and nitroglycerin today, helped intermittently, but came back with a vengeance, s hortly thereafter. Denies vomiting, neurologic deficits, or any other concerns. Patient stated had a stent placed on , after a cardiac cath, at other hospital. Around that time, her stress test and ECHO was apparently normal per patient report. Admitted for further work up and management. Hospital Course Hospital Course Hospital Course: 48-year-old obese female with PMHx of CAD with angina, s/p stent, HTN, HLD, prediabetes, GERD, current smoker and anxiety presenting with chest pain. Started about 3 days prior, has been waxing waning, today was constant and worsening. Starts in the middle of her chest, radiates to her left neck and left shoulder. On arrival labs was unremarkable. initial troponin negative. EKG negative for acute ischemic changes. CXR negatives. Imaging reviewed. Discussed with ER provider. Due to moderate cardiac risk patient was admitted to rule out ACS. Patient evaluated by cardiology. Echo obtained and normal. Will proceed with outpatient workup. No intervention during admission. Stable for discharge home. Problems addressed as follows: CAD, [place] with class 3 angina pectoris Hypertension Hypercholesterolemia - stent 12/18 Dr. Gore in [place], details of this are unclear. She presented with exertional chest pain but symptoms relieved by GI cocktail and present on exam and musculoskeletal distribution. Normal serial troponins and EKG. Cardiology consulted and evaluated patient. Recommend outpatient workup given normal echo on preliminary read with no wall motion abnormalities or significant signs of heart failure. At this time plan to continue DAPT, BB, Statin, Imdur, Ranexa. Continue GI w/u. Consider OP imaging. Patient unsure if she wants to follow with cardiology at [facility] or Dr. Gandara in [place]. Made appointment for cardiology service here, recommended patient think about who she wants to follow with and canceled the appointment she does not want to keep. Patient stated understanding. GERD - pt has epigastric tenderness, freq burning CP, already on [address] Barajas in [place]. Symptoms improved with GI cocktail. Follow-up with GI scheduled. Obesity, BMI 48 - recommend aggressive wt loss via diet and exercise - consider OP GLP-1 DM-II - well controlled, A1C 6.6. Defer further medication discussion to outpatient setting with PCP. Stable for discharge home. Spent 30 minutes in discharge counseling, documentation, chart review, and direct care with patient. Exam Data for Last 24 hours Vital signs and Labs for Last 24 Hours: Temp Pulse Resp BP Pulse Ox O2 Del Method 97.9 F 78 19 104/70 L 97 Room Air 12/17/23 08:00 12/17/23 08:00 12/17/23 08:00 12/17/23 08:00 12/17/23 08:00 12/17/23 09:00 Laboratory Results - last 24 hr 12/17/23 05:18: WBC 5.8 D, RBC 4.01 L, Hgb 12.5, Hct 37.0, MCV 92.4, MCH 31.2, MCHC 33.8, RDW 13.3, Plt Count 325, MPV 8.1, Neut % (Auto) 44.1, Lymph % (Auto) 45.3, [place] % (Auto) 9.1, Eos % (Auto) 1.0, Baso % (Auto) 0.6, Neut # (Auto) 2.6, Lymph # (Auto) 2.6, [place] # (Auto) 0.5, Eos # (Auto) 0.1, Baso # (Auto) 0.0, Sodium 138, Potassium 3.6, Chloride 104, Carbon Dioxide 27, Anion Gap 10.6, BUN 15, Creatinine 0.90, Estimated Creat Clear 52, Estimated GFR 67, Est GFR ( Amer) 81, Glucose 100, Calcium 8.3 L, Magnesium 2.4 H D, Total Bilirubin 0.4, AST 27, ALT 43, Alkaline Phosphatase 100, Troponin I < 0.01, Total Protein 6.5, Albumin 3.8, Globulin 2.7, Albumin/Globulin Ratio 1.4, Triglycerides 249 H, Cholesterol 156, LDL Cholesterol Direct 74.94 L, VLDL Cholesterol 50 H, HDL Cholesterol 38 L, Cholesterol/HDL Ratio 4.1 H I & O for Last 24 hours: Intake & Output 12/14/23 12/15/23 12/16/23 12/17/23 23:59 23:59 23:59 23:59 Intake Total 1720 / 1720 1330 / 1330 Output Total 1 / 1 0 / 0 0 / 0 0 / 0 Balance - 1720 / 1720 1330 / 1330 0 / 0 Weight 108.2 kg 108.2 kg 108.4 kg 108.4 kg Constitutional Constitutional: no acute distress and morbidly obese *Routine HEENT Exam Head: Present normocephalic Eye: Present EOMI and PERRL ENT: Present mucous membranes moist *Routine Neck Exam Neck: Present supple; Absent lymphadenopathy Routine Chest/Breast/Axilla Exam Chest wall: Present tenderness (Left parasternal musculature) *Routine Respiratory Exam Respiratory: Present CTA bilaterally *Routine Cardiovascular Exam Cardiovascular: Present RRR *Routine Abdominal Exam Abdominal: Present soft and normoactive bowel sounds; Absent tenderness *Routine Extremities Exam Extremities: Absent cyanosis, clubbing or edema *Routine Skin Exam Skin: Present warm; Absent rash *Routine Neurological Exam Neurological: Present alert, oriented X3 and moving all extremities; Absent altered mental status Results Data Completed and Pending Labs on day of discharge: Labs from last 24 hours 12/17/23 05:18 WBC 5.8 D RBC 4.01 L Hgb 12.5 Hct 37.0 MCV 92.4 MCH 31.2 MCHC 33.8 RDW 13.3 Plt Count 325 MPV 8.1 Neut % (Auto) 44.1 Lymph % (Auto) 45.3 [place] % (Auto) 9.1 Eos % (Auto) 1.0 Baso % (Auto) 0.6 Neut # (Auto) 2.6 Lymph # (Auto) 2.6 [place] # (Auto) 0.5 Eos # (Auto) 0.1 Baso # (Auto) 0.0 Sodium 138 Potassium 3.6 Chloride 104 Carbon Dioxide 27 Anion Gap 10.6 BUN 15 Creatinine 0.90 Estimated Creat Clear 52 Estimated GFR 67 Est GFR ( Amer) 81 Glucose 100 Calcium 8.3 L Magnesium 2.4 H D Total Bilirubin 0.4 AST 27 ALT 43 Alkaline Phosphatase 100 Troponin I < 0.01 Total Protein 6.5 Albumin 3.8 Globulin 2.7 Albumin/Globulin Ratio 1.4 Triglycerides 249 H Cholesterol 156 LDL Cholesterol Direct 74.94 L VLDL Cholesterol 50 H HDL Cholesterol 38 L Cholesterol/HDL Ratio 4.1 H DS: Diagnosis Discharge Diagnosis (1) GERD (gastroesophageal reflux disease): Status: Acute Code(s): K21.9 - Gastro-esophageal reflux disease without esophagitis Qualifiers: Esophagitis presence: esophagitis presence not specified Qualified Code(s): K21.9 - Gastro-esophageal reflux disease without esophagitis (2) Angina pectoris: Status: Acute Code(s): I20.9 - Angina pectoris, unspecified (3) Presence of stent in coronary artery in patient with coronary artery disease: Status: Acute Code(s): I25.10 - Atherosclerotic heart disease of [place] coronary artery without angina pectoris; Z95.5 - Presence of coronary angioplasty implant and graft Meds Home Medications and Allergies Home Medications Medication Instructions Recorded Confirmed Type aspirin 81 mg tablet,delayed 81 mg PO DAILY Blood Thinner 12/14/23 12/15/23 History release atorvastatin 80 mg tablet 80 mg PO DAILY Cholesterol 12/14/23 12/15/23 History clopidogrel 75 mg tablet 75 mg PO DAILY Blood Thinner 12/14/23 12/15/23 History hydrochlorothiazide 25 mg tablet 25 mg PO DAILY Fluid 12/14/23 12/15/23 History hydroxyzine pamoate 50 mg capsule 50 mg PO TIDP PRN Anxiety 12/14/23 12/15/23 History metoprolol succinate 50 mg 50 mg PO DAILY High Blood Pressure 12/14/23 12/15/23 History tablet,extended release 24 hr ranolazine 500 mg tablet,extended 500 mg PO BID Chest Pain 12/14/23 12/15/23 History release,12 hr topiramate 50 mg tablet 50 mg PO DAILY Pain 12/14/23 12/15/23 History amlodipine 10 mg tablet 10 mg PO DAILY High Blood Pressure 12/15/23 12/15/23 History buspirone 30 mg tablet 15 mg PO HS Anxiety 12/15/23 12/15/23 History isosorbide mononitrate 30 mg 30 mg PO DAILY Chest Pain 12/15/23 12/15/23 History tablet,extended release 24 hr pantoprazole 40 mg tablet,delayed 40 mg PO BID Acid Reflux 30 days 12/17/23 Rx release #60 tabs New Prescriptions to Start Prescriptions: pantoprazole Pepe Enriquez Allergies Allergy/AdvReac Type Severity Reaction Status Date / Time lisinopril Allergy Verified 04/11/23 16:40 oxycodone [From Percocet] Allergy Verified 04/11/23 16:40 Sulfa (Sulfonamide Allergy Verified 04/11/23 16:40 Antibiotics) Discharge Plan Disposition Patient Disposition: Home, Self-Care Condition: Good Follow up Plan Follow up with: Laura Cobian, [employer] [Primary Care Provider] - 12/28/23 11:30 am Mateo Prado MD [Staff Physician] - 12/27/23 1:30 pm Prescriptions/Medication Reconciliation: Continued atorvastatin 80 mg tablet 80 mg PO DAILY metoprolol succinate 50 mg tablet extended release 24 hr 50 mg PO DAILY Patient Comments: TAKE 1 TABLET BY MOUTH EVERY DAY clopidogrel 75 mg tablet 75 mg PO DAILY Patient Comments: TAKE 1 TABLET BY MOUTH EVERY DAY aspirin 81 mg tablet,delayed release (DR/EC) 81 mg PO DAILY hydrochlorothiazide 25 mg tablet 25 mg PO DAILY topiramate 50 mg tablet 50 mg PO DAILY ranolazine 500 mg tablet extended release 12 hr 500 mg PO BID Patient Comments: TAKE 1 TABLET BY MOUTH TWICE DAILY hydroxyzine pamoate 50 mg Capsule 50 mg PO TIDP PRN (Reason: Anxiety) isosorbide mononitrate 30 mg tablet extended release 24 hr 30 mg PO DAILY Patient Comments: TAKE 1 TABLET BY MOUTH DAILY amlodipine 10 mg tablet 10 mg PO DAILY buspirone 30 mg tablet 15 mg PO HS Changed pantoprazole 40 mg Tablet,Delayed Release (Dr/Ec) 40 mg PO BID 30 Days Qty: 60 0RF Problem Reconciliation Problems Reviewed?: Yes Patient Discharge Instructions ACTIVITY: Continue current activity DIET: continue same diet Patient Instructions: Heart-Healthy Diet, Carbohydrate-Counting Diet, DI for Chest Pain Providers Primary Care Provider: Laura Cobian Admit Provider: Chidi Davila Attending Provider: Chidi Davila
[2023-12-17] MEDS: BELLADONNA ALKALOIDS 60 ML ML PO (15:18)
--- NOTE | 2023-12-18 14:05 | CARE MANAGER ---
Contacted patient who states she is having some pain but is going to her GI appointment right now. If she continues with pain she is going to follow up with PCP and cardiology. She denies questions or concerns. BRAD Paris
== END 2023-12-17 15:58 | disposition home or self-care (01) ==
LOC: ER 18:20 → 2ND 22:32 → ER 22:57
PROVIDERS: Internal Medicine Adolescent Medicine; Nurse Practitioner Family; Admitting Provider Internal Medicine; Emergency Provider Emergency Medicine; PCP Nurse Practitioner; Visit Provider Internal Medicine
DX: I25.118 Atherosclerotic heart disease of native coronary artery with other forms of angina pectoris (principal); I10 Essential (primary) hypertension; K21.9 Gastro-esophageal reflux disease without esophagitis; E66.9 Obesity, unspecified; Z68.42 Body mass index [BMI] 45.0-49.9, adult; E78.5 Hyperlipidemia, unspecified; F17.210 Nicotine dependence, cigarettes, uncomplicated; Z79.899 Other long term (current) drug therapy; Z79.01 Long term (current) use of anticoagulants; Z95.5 Presence of coronary angioplasty implant and graft
CPT/HCPCS: 36415; 71045; 80053; 80061; 82306; 83036; 83735; 83880; 84484; 85025; 85610; 93005; 93306; 99285; G0378; J2405

== ENCOUNTER 2023-12-20 14:23 | Observation (INO) | payer OTHER, SELFPAY ==
[2023-12-20] VITALS (12 sets, daily range): BP systolic 103–141; BP diastolic 68–93; PULSE 69–78; RESP 10–18; TEMP 36.4–37.1; O2SAT 96–99; BMI 35.9
--- NOTE | 2023-12-20 14:25 | XR_ITS ---
FINAL REPORT CLINICAL HISTORY: chest pain COMPARISON: 12/14/2023 FINDINGS: TWO-VIEW CHEST The heart size is normal. The mediastinum is normal. The lungs are clear. There is no pneumothorax. IMPRESSION: No acute cardiopulmonary process. Reviewed, Interpreted and Dictated by Ciro Shell MD Transcribed by Magdalena Castaneda Authenticated and [facility]
[2023-12-20 14:38] LABS: Chloride 101 mmol/L (98-107); Potassium 3.5 mmoL/L (3.5-5.1); Sodium 138 mmol/L (136-145)
[2023-12-20 14:39] LABS: Basophils # 0.1 K/mm3 (0-0.2); Basophils % 0.9 % (0.1-2.0); Eosinophils # 0.1 K/mm3 (0.0-0.4); Eosinophils % 0.7 % (0.1-12.0); Hematocrit 41.8 % (37.0-47.0); Hemoglobin 14.4 g/dL (12.2-16.2); Lymphocytes # 2.5 K/mm3 (0.7-4.5); Mean Corpuscular HGB Conc 34.6 g/dL (31.8-35.4); Mean Corpuscular Hemoglobin 31.5 pg (27.0-31.2); Mean Corpuscular Volume 91.2 fl (81-99); Mean Platelet Volume 8.6 fl (7.4-10.4); Monocytes # 0.7 K/mm3 (0.1-1.0); Monocytes % 9.2 % (1.7-9.3); Neutrophils # 4.2 K/mm3 (1.8-7.8); Neutrophils % 56.2 % (37.0-80.0); Platelet Count 347 K/mm3 (142-424); Red Blood Count 4.58 M/mm3 (4.20-5.40); Red Cell Distribution Width 13.4 % (11.5-17.5); White Blood Count 7.5 K/mm3 (4.8-10.8)
[2023-12-20 14:41] LABS: Anion Gap 13.5 mEq/L (5-15); Blood Urea Nitrogen 16 mg/dl (7-17); Carbon Dioxide 27 mmol/L (22.0-30.0); Creatinine Clearance Estimated 110 mL/min (50-200); Estimated Glomerular Filt Rate 77 ml/min (>60); GFR (African American) 93 ML/MIN (>60)
[2023-12-20 14:42] LABS: Calcium 9.6 mg/dl (8.4-10.2); Glucose 122 mg/dl (74-100)
--- NOTE | 2023-12-20 14:43 | PC.NURSE ---
PT GONE TO XRAY
[2023-12-20 14:54] LABS: Troponin I < 0.01 ng/ml (0.00-0.034)
--- NOTE | 2023-12-20 15:00 | PC.NURSE ---
Dr Dodd on phone with hospitalist.
--- NOTE | 2023-12-20 15:16 | P.HP_ITS ---
History of Present Illness *Admission Date: 12/20/23 *Reason for visit:: chest pain *History of present illness: Mrs. Jeronimo is a 48-year-old obese female with PMHx of CAD with angina, s/p stent, HTN, HLD, prediabetes, GERD, current smoker and anxiety presenting with chest pain. Recently admitted for chest pain. Was discharged home with plan for outpatient workup. Presented to cardiology clinic today for follow-up with recurrent pain. Pain waxes and wanes, is correlated with activity, better at rest. Given risk factors, cardiology requested admission for unstable angina. Seen in the ER, troponin negative and EKG were reassuring with no acute ischemic changes. Plan for left heart cath to evaluate unstable angina given significant risk factors and persistent pain. Stable on room air. On evaluation, she reports the pain starts in the middle of her chest, radiates to her left neck and left shoulder. Made worse with exertion and associated shortness of breath. Not made better by anything other than rest. She tried an aspirin and nitroglycerin today, helped intermittently, but returns shortly thereafter. Denies vomiting, neurologic deficits, or any other concerns. Patient stated had a stent placed on , after a cardiac cath, at other hospital. Around that time, her stress test and ECHO was apparently normal per patient report. [facility] Disclaimer: The information contained in this section may have been updated after the patient was seen, as this information can be updated by other users. Medical History Carpal tunnel syndrome of left wrist Cervical cancer GERD (gastroesophageal reflux disease) Hypertension Hypoglycemia Ovarian cancer Surgical History H/O LEEP History of History of cardiac cath Family History Family history of hypertension Family history of diabetes mellitus type II Family history of hyperlipidemia Social History Smoking Status: Current every day smoker alcohol intake: never current occupational status: employed Travel in the last 8 weeks: None Review of Systems Review of Systems Review of systems (narrative): 14 point review of systems performed, pertinent positives and negatives as per [facility] Meds Home Medications and Allergies Home Medications Medication Instructions Recorded Confirmed Type aspirin 81 mg tablet,delayed 81 mg PO DAILY Blood Thinner 12/14/23 12/20/23 History release atorvastatin 80 mg tablet 80 mg PO DAILY Cholesterol 12/14/23 12/20/23 History clopidogrel 75 mg tablet 75 mg PO DAILY Blood Thinner 12/14/23 12/20/23 History hydrochlorothiazide 25 mg tablet 25 mg PO DAILY Fluid 12/14/23 12/20/23 History hydroxyzine pamoate 50 mg capsule 50 mg PO TIDP PRN Anxiety 12/14/23 12/20/23 History metoprolol succinate 50 mg 50 mg PO DAILY High Blood Pressure 12/14/23 12/20/23 History tablet,extended release 24 hr ranolazine 500 mg tablet,extended 500 mg PO BID Chest Pain 12/14/23 12/20/23 History release,12 hr topiramate 50 mg tablet 50 mg PO DAILY Pain 12/14/23 12/20/23 History amlodipine 10 mg tablet 10 mg PO DAILY High Blood Pressure 12/15/23 12/20/23 History buspirone 30 mg tablet 15 mg PO HS Anxiety 12/15/23 12/20/23 History isosorbide mononitrate 30 mg 30 mg PO DAILY Chest Pain 12/15/23 12/20/23 History tablet,extended release 24 hr pantoprazole 40 mg tablet,delayed 40 mg PO BID Acid Reflux 30 days 12/17/23 12/20/23 Rx release #60 tabs New Prescriptions to Start Prescriptions: Allergies Allergy/AdvReac Type Severity Reaction Status Date / Time lisinopril Allergy Verified 12/20/23 13:13 oxycodone [From Percocet] Allergy Verified 12/20/23 13:13 Sulfa (Sulfonamide Allergy Verified 12/20/23 13:13 Antibiotics) Exam Data for Last 24 hours Vital signs and Labs for Last 24 Hours: Temp Pulse Resp BP Pulse Ox O2 Del Method 98.2 F 78 18 141/93 H 99 Room Air 12/20/23 14:23 12/20/23 14:23 12/20/23 14:23 12/20/23 14:23 12/20/23 14:23 12/20/23 14:23 Laboratory Results - last 24 hr 12/20/23 14:22: WBC 7.5, RBC 4.58, Hgb 14.4, Hct 41.8, MCV 91.2, MCH 31.5 H, MCHC 34.6, RDW 13.4, Plt Count 347, MPV 8.6, Neut % (Auto) 56.2, Lymph % (Auto) 33.0, [place] % (Auto) 9.2, Eos % (Auto) 0.7, Baso % (Auto) 0.9, Neut # (Auto) 4.2, Lymph # (Auto) 2.5, [place] # (Auto) 0.7, Eos # (Auto) 0.1, Baso # (Auto) 0.1, Sodium 138, Potassium 3.5, Chloride 101, Carbon Dioxide 27, Anion Gap 13.5, BUN 16, Creatinine 0.80, Estimated Creat Clear 110, Estimated GFR 77, Est GFR ( Amer) 93, Glucose 122 H, Calcium 9.6, Troponin I < 0.01 I & O for Last 24 hours: Intake & Output 12/17/23 12/18/23 12/19/23 12/20/23 23:59 23:59 23:59 23:59 Weight 80.739 kg Constitutional Constitutional: no acute distress, obese and cooperative *Routine HEENT Exam Head: Present normocephalic and atraumatic Eye: Present EOMI, PERRL and normal accommodation ENT: Present mucous membranes moist *Routine Neck Exam Neck: Present supple, full ROM and trachea midline Routine Chest/Breast/Axilla Exam Chest wall: Present tenderness *Routine Respiratory Exam Respiratory: Present normal respiratory effort, able to speak in complete sentences and symmetric chest movement; Absent respiratory distress *Routine Cardiovascular Exam Cardiovascular: Present RRR, Normal S1 and Normal S2 *Routine Abdominal Exam Abdominal: Present soft and normoactive bowel sounds; Absent organomegaly *Routine Rectal Exam Rectal:: deferred *Routine Genitalia Exam Genitalia:: deferred *Routine Extremities Exam Extremities: Present full ROM and pulses intact; Absent cyanosis, clubbing or edema *Routine Skin Exam Skin: Present intact, dry and warm *Routine Neurological Exam Neurological: Present alert, oriented X3, normal reflexes, moving all extremities and normal speech Routine Psychiatric Exam Psychiatric: Present normal thought process, cooperative, good judgment and anxious Assessment and Plan *Assessment and plan (1) Unstable angina: Status: Acute Category: Medical Code(s): I20.0 - Unstable angina (2) Dyspnea: Status: Acute Qualifiers: Dyspnea type: dyspnea on exertion Qualified Code(s): R06.09 - Other forms of dyspnea Category: Medical Code(s): R06.00 - Dyspnea, unspecified (3) Coronary artery disease: Status: Acute Qualifiers: Associated angina: with unstable angina Coronary Disease-Associated Artery/Lesion type: [place] artery [place] vs. transplanted heart: [place] heart Qualified Code(s): I25.110 - Atherosclerotic heart disease of [place] coronary artery with unstable angina pectoris Category: Medical Code(s): I25.10 - Atherosclerotic heart disease of [place] coronary artery without angina pectoris (4) [place] angina: Status: Acute Category: Medical Code(s): I20.0 - Unstable angina (5) HLD (hyperlipidemia): Status: Acute Qualifiers: Hyperlipidemia type: unspecified Qualified Code(s): E78.5 - Hyperlipidemia, unspecified Category: Medical Code(s): E78.5 - Hyperlipidemia, unspecified (6) Current smoker: Status: Acute Category: Social Hx Code(s): F17.200 - Nicotine dependence, unspecified, uncomplicated (7) Obesity (BMI 30-39.9): Status: Acute Category: Medical Code(s): E66.9 - Obesity, unspecified (8) Hypertension: Status: Acute Qualifiers: Hypertension type: unspecified Qualified Code(s): I10 - Essential (primary) hypertension Category: Medical Code(s): I10 - Essential (primary) hypertension (9) GERD (gastroesophageal reflux disease): Status: Acute Qualifiers: Esophagitis presence: esophagitis presence not specified Qualified Code(s): K21.9 - Gastro-esophageal reflux disease without esophagitis Category: Medical Code(s): K21.9 - Gastro-esophageal reflux disease without esophagitis (10) Diabetes: Status: Acute Category: Medical Code(s): E11.9 - Type 2 diabetes mellitus without complications Plan 48-year-old obese female with PMHx of CAD with angina, s/p stent, HTN, HLD, prediabetes, GERD, current smoker and anxiety presenting with chest pain. Seen in cardiology clinic, sent to ER for further evaluation and workup. ER requested admission for unstable angina and left heart cath. Medicine agreed to admit. Taken to [facility] for evaluation. Problems addressed as follows: CAD, [place] with class 3 angina pectoris Hypertension Hypercholesterolemia - stent 12/18 Dr. Gore in [facility] -Cardiology consulted, taken to the [facility] for intervention. Further management pending results. Continue dual antiplatelet therapy with aspirin and Plavix. -Has elevated end-diastolic pressures, initiate Lasix 40 mg daily. - Continue to assess female grams daily, metoprolol succinate 50 mg daily, ranolazine 500 mg twice daily. - Normal serial troponins and EKG. GERD - pt has epigastric tenderness, freq burning CP, already on [address] Barajas in [place]. -Will consider repeat GI cocktail she responded well to this last visit - recommend she Follow-up with GI scheduled. Obesity -Complicates all aspects of her care. Anxiety: Continue BuSpar 15 mg nightly DM-II - well controlled, A1C 6.6. Initiate metformin 500 mg twice daily Full code Heparinized and [facility] Cardiac
--- NOTE | 2023-12-20 15:20 | [facility].EDCP ---
Discharge Plan Disposition Patient Disposition: Admitted Prescriptions Prescriptions: No Action atorvastatin 80 mg tablet 80 mg PO DAILY metoprolol succinate 50 mg tablet extended release 24 hr 50 mg PO DAILY Patient Comments: TAKE 1 TABLET BY MOUTH EVERY DAY clopidogrel 75 mg tablet 75 mg PO DAILY Patient Comments: TAKE 1 TABLET BY MOUTH EVERY DAY aspirin 81 mg tablet,delayed release (DR/EC) 81 mg PO DAILY hydrochlorothiazide 25 mg tablet 25 mg PO DAILY topiramate 50 mg tablet 50 mg PO DAILY ranolazine 500 mg tablet extended release 12 hr 500 mg PO BID Patient Comments: TAKE 1 TABLET BY MOUTH TWICE DAILY hydroxyzine pamoate 50 mg Capsule 50 mg PO TIDP PRN (Reason: Anxiety) isosorbide mononitrate 30 mg tablet extended release 24 hr 30 mg PO DAILY Patient Comments: TAKE 1 TABLET BY MOUTH DAILY amlodipine 10 mg tablet 10 mg PO DAILY buspirone 30 mg tablet 15 mg PO HS pantoprazole 40 mg Tablet,Delayed Release (Dr/Ec) 40 mg PO BID 30 Days Qty: 60 0RF Referrals Follow up/Referrals: Laura Cobian APRN [Primary Care Provider] - See instructions Clinical Impressions Clinical Impression: Unstable angina Discharge ED Provider: Melissa Dodd HPI General Chief Complaint: Chest Pain Stated Complaint: chest pain Time Seen by Provider: 12/20/23 14:35 Mode of Arrival: Ambulatory Source of Information: Patient Limitations: No Limitations Description of Symptoms (Recalled from ER Triage Doc. by RN): Patient reports left chest pain that has been off and on for a few months. Patient states she was seen by her certified medical records coder who sent her to ER. History of Present Illness HPI narrative: This patient is a 48-year-old female with a history of CAD status post stenting, hypertension, hyperlipidemia, GERD, smoking history, and chronic chest pain presenting to the emergency department for evaluation with concern for chest pain. Patient was supposed to have a left heart catheterization with cardiology, however this was deferred. She notes that she had chest pain yesterday as well as today, so she followed up with cardiology today and was advised to come to the hospital to be admitted for cardiac catheterization. She states that the pain is on the left side of her chest and radiates up into her jaw. She has associated shortness of breath and nausea. Nothing seems to make it better or worse. No other concerns noted at this time. Related Data Home Medications Medication Instructions Recorded Confirmed aspirin 81 mg tablet,delayed 81 mg PO DAILY Blood Thinner 12/14/23 12/20/23 release atorvastatin 80 mg tablet 80 mg PO DAILY Cholesterol 12/14/23 12/20/23 clopidogrel 75 mg tablet 75 mg PO DAILY Blood Thinner 12/14/23 12/20/23 hydrochlorothiazide 25 mg tablet 25 mg PO DAILY Fluid 12/14/23 12/20/23 hydroxyzine pamoate 50 mg capsule 50 mg PO TIDP PRN Anxiety 12/14/23 12/20/23 metoprolol succinate 50 mg 50 mg PO DAILY High Blood Pressure 12/14/23 12/20/23 tablet,extended release 24 hr ranolazine 500 mg tablet,extended 500 mg PO BID Chest Pain 12/14/23 12/20/23 release,12 hr topiramate 50 mg tablet 50 mg PO DAILY Pain 12/14/23 12/20/23 amlodipine 10 mg tablet 10 mg PO DAILY High Blood Pressure 12/15/23 12/20/23 buspirone 30 mg tablet 15 mg PO HS Anxiety 12/15/23 12/20/23 isosorbide mononitrate 30 mg 30 mg PO DAILY Chest Pain 12/15/23 12/20/23 tablet,extended release 24 hr Previous Rx's Medication Instructions Recorded pantoprazole 40 mg tablet,delayed 40 mg PO BID Acid Reflux 30 days 12/17/23 release #60 tabs Allergies Allergy/AdvReac Type Severity Reaction Status Date / Time lisinopril Allergy Verified 12/20/23 13:13 oxycodone [From Percocet] Allergy Verified 12/20/23 13:13 Sulfa (Sulfonamide Allergy Verified 12/20/23 13:13 Antibiotics) [facility] Disclaimer: The information contained in this section may have been updated after the patient was seen, as this information can be updated by other users. Medical History Carpal tunnel syndrome of left wrist Cervical cancer GERD (gastroesophageal reflux disease) Hypertension Hypoglycemia Ovarian cancer Surgical History H/O LEEP History of History of cardiac cath Social History Smoking Status: Current every day smoker alcohol intake: never current occupational status: employed Travel in the last 8 weeks: None ROS Obtained: Yes All systems reviewed & no additional complaints except as documented Physical Exam General General appearance: alert and in no apparent distress Head Head exam: atraumatic and normocephalic Eye Eye exam: Present normal appearance, PERRL and EOMI ENT ENT exam: Present normal exam, normal oropharynx, mucous membranes moist and normal external ear exam Neck Neck exam: Present normal inspection, full ROM and trachea midline; Absent tenderness Chest Chest inspection: Present normal inspection and symmetric chest wall rise; Absent tenderness Respiratory Respiratory exam: Present normal lung sounds bilaterally; Absent respiratory distress, wheezes, stridor or accessory muscle use Cardiovascular Cardiovascular exam: Present regular rate and normal rhythm Abdominal Exam Abdominal exam: Present soft; Absent distention, tenderness or guarding Extremities Exam Extremities exam: Present normal inspection, full ROM and normal capillary refill; Absent tenderness or edema Back Exam Back exam: Present normal inspection and full ROM; Absent tenderness Neurological Exam Neurological exam: Present alert, oriented X3, CN II-XII intact and normal gait; Absent motor sensory deficit Psychiatric Psychiatric exam: Present normal affect and normal mood Skin Skin exam: Present warm and dry HEART Score HEART Score HEART Score assessment performed?: Yes History (anamnesis): Moderately suspicious ECG: Normal Age: 45-65 years Risk factors: Atherosclerosis history Troponin: </= normal limit HEART Score: 4 Critical Care Critical Care Time Critical Care Time: No Medical Decision Making Billy Inquiry Pt receiving controlled substance: No Vital Signs Vital Signs: 12/20/23 14:23 Temperature 98.2 F Temperature Source Oral Pulse Rate [Left] 78 Respiratory Rate 18 Blood Pressure [Right Arm] 141/93 H Blood Pressure Mean [Right Arm] 109 Blood Pressure Source [Right Arm] Automatic Cuff 02 Sat by Pulse Oximetry 99 Oxygen Delivery Method Room Air Lab Data Labs: Lab Results 12/20/23 14:22: WBC 7.5, RBC 4.58, Hgb 14.4, Hct 41.8, MCV 91.2, MCH 31.5 H, MCHC 34.6, RDW 13.4, Plt Count 347, MPV 8.6, Neut % (Auto) 56.2, Lymph % (Auto) 33.0, Bureau % (Auto) 9.2, Eos % (Auto) 0.7, Baso % (Auto) 0.9, Neut # (Auto) 4.2, Lymph # (Auto) 2.5, Bureau # (Auto) 0.7, Eos # (Auto) 0.1, Baso # (Auto) 0.1, Sodium 138, Potassium 3.5, Chloride 101, Carbon Dioxide 27, Anion Gap 13.5, BUN 16, Creatinine 0.80, Estimated Creat Clear 110, Estimated GFR 77, Est GFR ( Amer) 93, Glucose 122 H, Calcium 9.6, Troponin I < 0.01 12/20/23 14:22 12/20/23 14:22 Response Orders (Tests/Meds): ED MEDICATIONS Generic Name Dose Route Start Last Admin Trade Name Freq PRN Reason Stop Dose Admin Sodium Chloride 10 ml 12/20/23 14:25 Sodium Chloride 0.9% 10ml Flush Syringe IV 01/19/24 14:24 NEEDED PRN Maintain IV Site ORDERS Category Date Time Status Cardiology Consult [Consult to Cardiology] [CONS] Cons 12/20/23 15:13 Active Routine XR chest 2V Stat Exams 12/20/23 14:25 Taken Basic Metabolic Panel Stat Lab 12/20/23 14:22 Completed Complete Blood Count Auto Diff AMLAB Lab 12/21/23 06:00 Ordered Complete Blood Count Auto Diff Stat Lab 12/20/23 14:22 Completed Comprehensive Metabolic Panel AMLAB Lab 12/21/23 06:00 Ordered Magnesium AMLAB Lab 12/21/23 06:00 Ordered Troponin I Q3H Lab 12/20/23 17:30 Ordered Troponin I Q3H Lab 12/20/23 20:30 Ordered Troponin I Stat Lab 12/20/23 14:22 Completed ECG Data Tracing #1: Attestation: I reviewed this ECG and interpreted as documented below: ECG Narrative: Normal sinus rhythm with a ventricular rate of [address] changes concerning for ischemia. ECG initial impression date: 12/20/23 ECG initial impression time: 14:00 ECG normal with no acute: arrhythmias, ischemia, conduction abnormalities, chamber hypertrophy MDM Narrative Medical Decision Narrative: In summary, this patient is a 48-year-old female presenting to the Emergency Department for evaluation of chest pain as a referral from cardiology clinic. Differential diagnoses considered include but are not limited to unstable angina, ACS, dysrhythmia, GERD. Ruling out the most morbid conditions drove assessment. It should be noted patient's history includes CAD status post tenting, hypertension, and hyperlipidemia which may or may not be at goal therapy. This complicates all aspects of care by increasing patient's risk for morbidity. I reviewed patient's past medical records and noted. Evaluations for chest pain recently here and with cardiology. On exam, the patient is in no acute distress with reassuring vital signs. EKG does not demonstrate any STEMI. Workup included, CMP, troponin, and chest x-ray.. I independently interpreted x-ray prior to the radiologist read and noted focal consolidation, pneumothorax, or other concerns. Please see their read for final interpretation. Labs were obtained that demonstrated no acutely concerning abnormalities with negative initial troponin. Given the patient was sent here by cardiology for cardiac catheterization, I called and had an interactive discussion with the hospitalist who is already made aware of the patient. Dr. Enriquez graciously accepted the patient for admission.
--- NOTE | 2023-12-20 15:56 | PC.NURSE ---
report called to David SALINAS
--- NOTE | 2023-12-20 16:23 | IR_ITS ---
APPROVED REPORT Patient Location: Inpatient Machine Burrer: REED Brenner RT (R) PROCEDURES Left heart catheterization Left ventriculogram Selective coronary angiogram INDICATION Unstable angina, Known coronary artery disease Informed consent was obtained prior to the procedure. COMPLICATIONS NONE Estimated Blood Loss: LESS THAN 10 ML TECHNIQUE One percent lidocaine used to anesthetize the right anterior aspect of the wrist. The right radial artery was accessed via the Seldinger technique. A 6 Ivor[place] sheath was placed in the right radial artery. 2.5 mg of Verapamil, 800 mcg of nitroglycerin, 1mg Lidocaine and 5000 U Heparin were given through the arterial sheath. The papa catheter was also used to perform left heart catheterization, left ventriculogram and selective coronary angiogram. At the end of the procedure the sheath was removed good hemostasis was achieved using Traclet band, patient was transferred to the postop holding area in stable condition. ANGIOGRAPHIC RESULTS The left main artery Normal The left anterior descending artery Has a stent in the proximal segment which is widely patent with minimal distal stent concentric 30% in-stent restenosis. There is excellent distal transitioning into the LAD with remaining vessel widely patent The circumflex artery Dominant and normal The right coronary artery Small nondominant normal The LEON ventriculogram reveals Slightly hyperdynamic at 70 to 75% The left ventricular end-diastolic pressure Severe to critically elevated at 35 to 40 mmHg IMPRESSION Widely patent proximal LAD stent Hyperdynamic ventricle Severe to critically elevated LVEDP PLAN 1. Treatment of HFpEF 2. Severely elevated LVEDP is the likely etiology for patient's symptoms 3. Increase diuresis 4. Aggressive medical management Electronically signed by : Víctor Reyes MD 12/20/2023 17:48:46
[2023-12-20] MEDS: LIDOCAINE 1% 10ML MDV 20 ML IJ (17:06)
[2023-12-20] MEDS: diphenhydrAMINE 50MG/ML VIAL 50 MG IV (17:06)
[2023-12-20] MEDS: VERAPAMIL 2.5MG/ML 2ML VIAL 2.5 MG IV (17:06)
[2023-12-20] MEDS: NITROGLYCERIN 800MCG/8ML SYR (CATH LAB) 800 MCG IA (17:06)
[2023-12-20] MEDS: 0.9 % SODIUM CHLORIDE 500 ML 25 ML IV (17:07)
[2023-12-20] MEDS: HEPARIN 1,000 UNITS/500ML NS (CATH LAB) 3000 UNIT IV (17:07)
[2023-12-20] MEDS: MIDAZOLAM HCL 1MG/1ML 5ML VIAL 1 MG IV (17:41)
[2023-12-20] MEDS: HEPARIN 1,000 UNITS/ML 10ML VIAL (CATH LAB) 10000 UNIT IV (17:42)
[2023-12-20] MEDS: FENTANYL 100MCG/2ML VIAL 50 MCG IV (17:42)
[2023-12-20] MEDS: IOPAMIDOL-370 (76%);100ML BOTTLE 50 ML IV (18:28)
[2023-12-21] VITALS (7 sets, daily range): BP systolic 98–125; BP diastolic 73–88; PULSE 67–74; RESP 14–19; TEMP 36.4–36.6; O2SAT 96–98; BMI 35.9
[2023-12-21 06:38] LABS: Basophils % 0.5 % (0.1-2.0); Eosinophils # 0.1 K/mm3 (0.0-0.4); Eosinophils % 0.8 % (0.1-12.0); Hematocrit 36.4 % (37.0-47.0); Lymphocytes # 2.6 K/mm3 (0.7-4.5); Lymphocytes % 39.8 % (10-50); Mean Corpuscular HGB Conc 34.2 g/dL (31.8-35.4); Mean Corpuscular Hemoglobin 31.2 pg (27.0-31.2); Mean Corpuscular Volume 91.2 fl (81-99); Monocytes # 0.5 K/mm3 (0.1-1.0); Monocytes % 7.6 % (1.7-9.3); Neutrophils # 3.3 K/mm3 (1.8-7.8); Neutrophils % 51.2 % (37.0-80.0); Platelet Count 313 K/mm3 (142-424); Red Blood Count 3.99 M/mm3 (4.20-5.40); Red Cell Distribution Width 13.4 % (11.5-17.5); White Blood Count 6.5 K/mm3 (4.8-10.8)
[2023-12-21 06:44] LABS: Alanine Aminotransferase 47 U/L (12-78); Albumin Level 3.7 g/dl (3.5-5.0); Albumin/Globulin Ratio 1.3 (1.1-1.8); Alkaline Phosphatase 104 U/L (38-126); Anion Gap 11.1 mEq/L (5-15); Aspartate Amino Transferase 25 U/L (14-36); Bilirubin,Total 0.2 mg/dl (0.2-1.3); Blood Urea Nitrogen 16 mg/dl (7-17); Calcium 8.6 mg/dl (8.4-10.2); Carbon Dioxide 27 mmol/L (22.0-30.0); Chloride 104 mmol/L (98-107); Creatinine Clearance Estimated 125 mL/min (50-200); Estimated Glomerular Filt Rate 89 ml/min (>60); GFR (African American) 108 ML/MIN (>60); Globulin 2.9 g/dL (1.3-3.2); Glucose 109 mg/dl (74-100); Potassium 3.1 mmoL/L (3.5-5.1); Sodium 139 mmol/L (136-145); Total Protein,Serum 6.6 g/dl (6.3-8.2)
[2023-12-21 06:51] LABS: Hemoglobin 12.5 g/dL (12.2-16.2)
--- NOTE | 2023-12-21 07:10 | P.DS_ITS ---
General Admission date:: 12/20/23 Discharge date: 12/21/23 HPI HPI HPI: Mrs. Jeronimo is a 48-year-old obese female with PMHx of CAD with angina, s/p stent, HTN, HLD, prediabetes, GERD, current smoker and anxiety presenting with chest pain. Recently admitted for chest pain. Was discharged home with plan for outpatient workup. Presented to cardiology clinic today for follow-up with recurrent pain. Pain waxes and wanes, is correlated with activity, better at rest. Given risk factors, cardiology requested admission for unstable angina. Seen in the ER, troponin negative and EKG were reassuring with no acute ischemic changes. Plan for left heart cath to evaluate unstable angina given significant risk factors and persistent pain. Stable on room air. On evaluation, she reports the pain starts in the middle of her chest, radiates to her left neck and left shoulder. Made worse with exertion and associated shortness of breath. Not made better by anything other than rest. She tried an aspirin and nitroglycerin today, helped intermittently, but returns shortly thereafter. Denies vomiting, neurologic deficits, or any other concerns. Patient stated had a stent placed on , after a cardiac cath, at other hospital. Around that time, her stress test and ECHO was apparently normal per patient report. Hospital Course Hospital Course Hospital Course: 48-year-old obese female with PMHx of CAD with angina, s/p stent, HTN, HLD, prediabetes, GERD, current smoker and anxiety presenting with chest pain. Seen in cardiology clinic, sent to ER for further evaluation and workup. ER requested admission for unstable angina and left heart cath. Medicine agreed to admit. Taken to Car Wash Supervisor for evaluation. Workup unremarkable. Gallbladder and heart are not an etiology for chest pain. Recommend further outpatient workup for noncardiac nongallbladder etiologies. Stable for discharge home. Reassurance offered. Problems addressed as follows: CAD, [place] with class 3 angina pectoris Hypertension Hypercholesterolemia - stent 12/18 Dr. Gore in [place]. Cardiology was consulted. Taken to the Car Wash Supervisor yesterday for intervention. Coronaries found to be clear. Continue dual antiplatelet therapy with aspirin and Plavix. Due to elevated end-diastolic pressure, initiate Lasix 20 mg daily. Will also plan to continue statin 81 mg Lipitor. Isosorbide 30 g daily, Toprol succinate 50 mg daily, ranolazine 500 mg twice daily, and potassium is up to 20 mEq daily. Recommend follow-up with cardiology as an outpatient for routine management. GERD - pt has epigastric tenderness, freq burning CP, already on [address] Barajas in [place]. Right upper quadrant ultrasound obtained to rule out gallbladder dysfunction as component of her chest pain/abdominal pain. Ultrasound with no gallbladders or biliary dilatation. Recommend further follow-up with GI for further management. Obesity: Complicates all aspects of her care. Anxiety: Continue BuSpar 15 mg nightly DM-II: well controlled, A1C 6.6. Initiate metformin 500 mg twice daily Stable for discharge home. Exam Data for Last 24 hours Vital signs and Labs for Last 24 Hours: Temp Pulse Resp BP Pulse Ox O2 Del Method 97.6 F 68 14 112/76 98 Room Air 12/21/23 04:00 12/21/23 04:00 12/21/23 04:00 12/21/23 04:00 12/21/23 04:00 12/21/23 04:00 Laboratory Results - last 24 hr 12/20/23 14:22: WBC 7.5, RBC 4.58, Hgb 14.4, Hct 41.8, MCV 91.2, MCH 31.5 H, MCHC 34.6, RDW 13.4, Plt Count 347, MPV 8.6, Neut % (Auto) 56.2, Lymph % (Auto) 33.0, [place] % (Auto) 9.2, Eos % (Auto) 0.7, Baso % (Auto) 0.9, Neut # (Auto) 4.2, Lymph # (Auto) 2.5, [place] # (Auto) 0.7, Eos # (Auto) 0.1, Baso # (Auto) 0.1, Sodium 138, Potassium 3.5, Chloride 101, Carbon Dioxide 27, Anion Gap 13.5, BUN 16, Creatinine 0.80, Estimated Creat Clear 110, Estimated GFR 77, Est GFR ( Amer) 93, Glucose 122 H, Calcium 9.6, Troponin I < 0.01 12/21/23 06:10: WBC 6.5, RBC 3.99 L, Hgb 12.5 D, Hct 36.4 L, MCV 91.2, MCH 31.2, MCHC 34.2, RDW 13.4, Plt Count 313, MPV 8.0, Neut % (Auto) 51.2, Lymph % (Auto) 39.8, [place] % (Auto) 7.6, Eos % (Auto) 0.8, Baso % (Auto) 0.5, Neut # (Auto) 3.3, Lymph # (Auto) 2.6, [place] # (Auto) 0.5, Eos # (Auto) 0.1, Baso # (Auto) 0.0, Sodium 139, Potassium 3.1 L, Chloride 104, Carbon Dioxide 27, Anion Gap 11.1, BUN 16, Creatinine 0.70, Estimated Creat Clear 125, Estimated GFR 89, Est GFR ( Amer) 108, Glucose 109 H, Calcium 8.6, Magnesium 2.0, Total Bilirubin 0.2, AST 25, ALT 47, Alkaline Phosphatase 104, Total Protein 6.6, Albumin 3.7, Globulin 2.9, Albumin/Globulin Ratio 1.3 I & O for Last 24 hours: Intake & Output 12/18/23 12/19/23 12/20/23 12/21/23 23:59 23:59 23:59 23:59 Intake Total 500 / 500 Output Total 0 / 0 Balance 500 / 500 Weight 80.739 kg 80.73 kg Constitutional Constitutional: no acute distress and morbidly obese *Routine HEENT Exam Head: Present normocephalic Eye: Present EOMI and PERRL ENT: Present mucous membranes moist *Routine Neck Exam Neck: Present supple; Absent lymphadenopathy Routine Chest/Breast/Axilla Exam Chest wall: Present tenderness (Left parasternal musculature) *Routine Respiratory Exam Respiratory: Present CTA bilaterally *Routine Cardiovascular Exam Cardiovascular: Present RRR *Routine Abdominal Exam Abdominal: Present soft, normoactive bowel sounds and tenderness (epigastric) *Routine Extremities Exam Extremities: Absent cyanosis, clubbing or edema *Routine Skin Exam Skin: Present warm; Absent rash *Routine Neurological Exam Neurological: Present alert, oriented X3 and moving all extremities; Absent altered mental status Results Data Completed and Pending Labs on day of discharge: Labs from last 24 hours 12/21/23 12/20/23 06:10 14:22 WBC 6.5 7.5 RBC 3.99 L 4.58 Hgb 12.5 D 14.4 Hct 36.4 L 41.8 MCV 91.2 91.2 MCH 31.2 31.5 H MCHC 34.2 34.6 RDW 13.4 13.4 Plt Count 313 347 MPV 8.0 8.6 Neut % (Auto) 51.2 56.2 Lymph % (Auto) 39.8 33.0 [place] % (Auto) 7.6 9.2 Eos % (Auto) 0.8 0.7 Baso % (Auto) 0.5 0.9 Neut # (Auto) 3.3 4.2 Lymph # (Auto) 2.6 2.5 [place] # (Auto) 0.5 0.7 Eos # (Auto) 0.1 0.1 Baso # (Auto) 0.0 0.1 Sodium 139 138 Potassium 3.1 L 3.5 Chloride 104 101 Carbon Dioxide 27 27 Anion Gap 11.1 13.5 BUN 16 16 Creatinine 0.70 0.80 Estimated Creat Clear 125 110 Estimated GFR 89 77 Est GFR ( Amer) 108 93 Glucose 109 H 122 H Calcium 8.6 9.6 Magnesium 2.0 Total Bilirubin 0.2 AST 25 ALT 47 Alkaline Phosphatase 104 Troponin I < 0.01 Total Protein 6.6 Albumin 3.7 Globulin 2.9 Albumin/Globulin Ratio 1.3 DS: Diagnosis Discharge Diagnosis (1) Unstable angina: Status: Acute Code(s): I20.0 - Unstable angina (2) Dyspnea: Status: Acute Code(s): R06.00 - Dyspnea, unspecified Qualifiers: Dyspnea type: dyspnea on exertion Qualified Code(s): R06.09 - Other forms of dyspnea (3) Coronary artery disease: Status: Acute Code(s): I25.10 - Atherosclerotic heart disease of [place] coronary artery without angina pectoris Qualifiers: Associated angina: with unstable angina Coronary Disease-Associated Artery/Lesion type: [place] artery [place] vs. transplanted heart: [place] heart Qualified Code(s): I25.110 - Atherosclerotic heart disease of [place] coronary artery with unstable angina pectoris (4) HLD (hyperlipidemia): Status: Acute Code(s): E78.5 - Hyperlipidemia, unspecified Qualifiers: Hyperlipidemia type: unspecified Qualified Code(s): E78.5 - Hyperli pidemia, unspecified (5) Current smoker: Status: Acute Code(s): F17.200 - Nicotine dependence, unspecified, uncomplicated (6) Obesity (BMI 30-39.9): Status: Acute Code(s): E66.9 - Obesity, unspecified (7) Hypertension: Status: Acute Code(s): I10 - Essential (primary) hypertension Qualifiers: Hypertension type: unspecified Qualified Code(s): I10 - Essential (primary) hypertension (8) GERD (gastroesophageal reflux disease): Status: Acute Code(s): K21.9 - Gastro-esophageal reflux disease without esophagitis Qualifiers: Esophagitis presence: esophagitis presence not specified Qualified Code(s): K21.9 - Gastro-esophageal reflux disease without esophagitis (9) Diabetes: Status: Acute Code(s): E11.9 - Type 2 diabetes mellitus without complications Meds Home Medications and Allergies Home Medications Medication Instructions Recorded Confirmed Type aspirin 81 mg tablet,delayed 81 mg PO DAILY Blood Thinner 12/14/23 12/20/23 History release atorvastatin 80 mg tablet 80 mg PO DAILY Cholesterol 12/14/23 12/20/23 History clopidogrel 75 mg tablet 75 mg PO DAILY Blood Thinner 12/14/23 12/20/23 History hydroxyzine pamoate 50 mg capsule 50 mg PO TIDP PRN Anxiety 12/14/23 12/20/23 History metoprolol succinate 50 mg 50 mg PO DAILY High Blood Pressure 12/14/23 12/20/23 History tablet,extended release 24 hr ranolazine 500 mg tablet,extended 500 mg PO BID Chest Pain 12/14/23 12/20/23 History release,12 hr topiramate 50 mg tablet 50 mg PO DAILY Pain 12/14/23 12/20/23 History buspirone 30 mg tablet 15 mg PO HS Anxiety 12/15/23 12/20/23 History isosorbide mononitrate 30 mg 30 mg PO DAILY Chest Pain 12/15/23 12/20/23 History tablet,extended release 24 hr pantoprazole 40 mg tablet,delayed 40 mg PO BID Acid Reflux 30 days 12/17/23 12/20/23 Rx release #60 tabs furosemide 40 mg tablet 20 mg PO DAILY 30 days #15 tabs 12/21/23 Rx metformin 500 mg tablet 500 mg PO BIDWMEAL 30 days #60 tabs 12/21/23 Rx potassium chloride 20 mEq 20 meq PO BID 30 days #60 tabs 12/21/23 Rx tablet,extended release(part/cryst) (Klor-Con M) New Prescriptions to Start Prescriptions: furosemide Pepe Enriquez metformin Pepe Enriquez potassium chloride [Klor-Con M20] Pepe Enriquez Allergies Allergy/AdvReac Type Severity Reaction Status Date / Time lisinopril Allergy Verified 12/20/23 13:13 oxycodone [From Percocet] Allergy Verified 12/20/23 13:13 Sulfa (Sulfonamide Allergy Verified 12/20/23 13:13 Antibiotics) Discharge Plan Disposition Patient Disposition: Home, Self-Care Condition: Good Follow up Plan Follow up with: Víctor Reyes MD [Staff Physician] - 12/27/23 1:30 pm Laura Cobian APRN [Primary Care Provider] - 12/28/23 11:30 am Prescriptions/Medication Reconciliation: New furosemide 40 mg Tablet 20 mg PO DAILY 30 Days Qty: 15 0RF metformin 500 mg Tablet 500 mg PO BIDWMEAL 30 Days Qty: 60 0RF potassium chloride [Klor-Con M20] 20 mEq Tablet,Er Particles/Crystals 20 meq PO BID 30 Days Qty: 60 0RF Continued atorvastatin 80 mg tablet 80 mg PO DAILY metoprolol succinate 50 mg tablet extended release 24 hr 50 mg PO DAILY Patient Comments: TAKE 1 TABLET BY MOUTH EVERY DAY clopidogrel 75 mg tablet 75 mg PO DAILY Patient Comments: TAKE 1 TABLET BY MOUTH EVERY DAY aspirin 81 mg tablet,delayed release (DR/EC) 81 mg PO DAILY topiramate 50 mg tablet 50 mg PO DAILY ranolazine 500 mg tablet extended release 12 hr 500 mg PO BID Patient Comments: TAKE 1 TABLET BY MOUTH TWICE DAILY hydroxyzine pamoate 50 mg Capsule 50 mg PO TIDP PRN (Reason: Anxiety) isosorbide mononitrate 30 mg tablet extended release 24 hr 30 mg PO DAILY Patient Comments: TAKE 1 TABLET BY MOUTH DAILY buspirone 30 mg tablet 15 mg PO HS pantoprazole 40 mg Tablet,Delayed Release (Dr/Ec) 40 mg PO BID 30 Days Qty: 60 0RF Discontinued hydrochlorothiazide 25 mg tablet 25 mg PO DAILY amlodipine 10 mg tablet 10 mg PO DAILY Problem Reconciliation Problems Reviewed?: Yes Patient Discharge Instructions ACTIVITY: Continue current activity DIET: continue same diet Providers Primary Care Provider: Laura Cobian Admit Provider: Pepe Enriquez Attending Provider: Pepe Enriquez
--- NOTE | 2023-12-21 07:33 | US_ITS ---
FINAL REPORT CLINICAL HISTORY: abdominal pain COMPARISON: None FINDINGS: Sonographic images of the right upper quadrant were obtained. The pancreas is partially obscured. There is fatty infiltration of the liver. The gallbladder appears normal without evidence of gallstones.There is no evidence of biliary ductal dilatation.The common duct measures 2.5 mm. Limited images of the right kidney are unremarkable. IMPRESSION: Fatty infiltration of the liver. Reviewed, Interpreted and Dictated by Ciro Shell MD Transcribed by Pratibha Frost Authenticated and [facility]
[2023-12-21] MEDS: ASPIRIN EC 81MG TABLET 81 MG PO (10:21)
[2023-12-21] MEDS: ATORVASTATIN 40MG TABLET 80 MG PO (10:21)
[2023-12-21] MEDS: ISOSORBIDE MONO 30MG TAB.ER.24H 30 MG PO (10:22)
[2023-12-21] MEDS: FUROSEMIDE 40 MG TABLET PO (10:22)
[2023-12-21] MEDS: METOPROLOL SUCCINATE XL 50MG TABLET 50 MG PO (10:22)
[2023-12-21] MEDS: PANTOPRAZOLE 40MG TABLET 40 MG PO (10:22)
[2023-12-21] MEDS: CLOPIDOGREL 75MG TAB 75 MG PO (10:22)
[2023-12-21] MEDS: POTASSIUM CHLORIDE 20MEQ TAB 20 MEQ PO (10:23)
[2023-12-21] MEDS: TOPIRAMATE 100MG TABLET 50 MG PO (10:23)
[2023-12-21] MEDS: RANOLAZINE 500MG ER TABLET 500 MG PO (10:23)
--- NOTE | 2023-12-21 12:11 | EXP.CARD.CON ---
History of Present Illness History of Present Illness Consult date: 12/21/23 Requesting physician: Pepe Enriquez Consult reason: chest pain Chief complaint: Chest pain History of present illness: 48-year-old white female with history of CAD status post LAD stenting with Dr. Jimenes last year. Patient also has BMI of 35 and ongoing GI issues. She was in the hospital earlier this week with complaint of chest discomfort which appears mostly to be GI related at that time, she had reproducible epigastric pain and symptoms resolved with GI cocktail. She had normal serial troponins and EKG so she was released outpatient follow-up from a cardiac standpoint. Patient was seen in the office yesterday complaining of worsening episodes of chest pressure on exertion so she was set up for left heart cath. Left heart cath thankfully showed patent LAD stent with no other significant disease noted. She does have severely elevated left end-diastolic pressure which we discussed this morning. She will undergo outpatient sleep apnea testing. [facility] Disclaimer: The information contained in this section may have been updated after the patient was seen, as this information can be updated by other users. Medical History Carpal tunnel syndrome of left wrist Cervical cancer GERD (gastroesophageal reflux disease) Hypertension Hypoglycemia Ovarian cancer Surgical History H/O LEEP History of History of cardiac cath Family History Other Family history of diabetes mellitus type II Family history of hyperlipidemia Family history of hypertension Social History Smoking Status: Current every day smoker alcohol intake: never current occupational status: employed Travel in the last 8 weeks: None Review of Systems Constitutional Constitutional: Denies fatigue and Denies weakness Eyes Eyes: Denies loss of vision ENT Ears, Nose, Mouth, and Throat: Denies hearing loss and Denies vertigo *Cardiovascular Cardiovascular: Denies chest pain, Denies dyspnea and Denies syncope *Respiratory Respiratory: Denies cough and Denies dyspnea *Gastrointestinal Gastrointestinal: Denies change in stool character, Denies nausea and Denies vomiting *Musculoskeletal Musculoskeletal: Denies muscle weakness Integumentary/Breasts Skin/Breast: Denies changing lesions *Neurologic Neurologic: Denies loss of vision, Denies syncope, Denies vertigo and Denies weakness Endocrine Endocrine: Denies fatigue Exam Data for Last 24 hours Vital signs and Labs for Last 24 Hours: Temp Pulse Resp BP Pulse Ox O2 Del Method 97.9 F 74 18 125/88 97 Room Air 12/21/23 07:52 12/21/23 07:52 12/21/23 07:52 12/21/23 07:52 12/21/23 07:52 12/21/23 11:00 Laboratory Results - last 24 hr 12/20/23 14:22: WBC 7.5, RBC 4.58, Hgb 14.4, Hct 41.8, MCV 91.2, MCH 31.5 H, MCHC 34.6, RDW 13.4, Plt Count 347, MPV 8.6, Neut % (Auto) 56.2, Lymph % (Auto) 33.0, [place] % (Auto) 9.2, Eos % (Auto) 0.7, Baso % (Auto) 0.9, Neut # (Auto) 4.2, Lymph # (Auto) 2.5, [place] # (Auto) 0.7, Eos # (Auto) 0.1, Baso # (Auto) 0.1, Sodium 138, Potassium 3.5, Chloride 101, Carbon Dioxide 27, Anion Gap 13.5, BUN 16, Creatinine 0.80, Estimated Creat Clear 110, Estimated GFR 77, Est GFR ( Amer) 93, Glucose 122 H, Calcium 9.6, Troponin I < 0.01 12/21/23 06:10: WBC 6.5, RBC 3.99 L, Hgb 12.5 D, Hct 36.4 L, MCV 91.2, MCH 31.2, MCHC 34.2, RDW 13.4, Plt Count 313, MPV 8.0, Neut % (Auto) 51.2, Lymph % (Auto) 39.8, [place] % (Auto) 7.6, Eos % (Auto) 0.8, Baso % (Auto) 0.5, Neut # (Auto) 3.3, Lymph # (Auto) 2.6, [place] # (Auto) 0.5, Eos # (Auto) 0.1, Baso # (Auto) 0.0, Sodium 139, Potassium 3.1 L, Chloride 104, Carbon Dioxide 27, Anion Gap 11.1, BUN 16, Creatinine 0.70, Estimated Creat Clear 125, Estimated GFR 89, Est GFR ( Amer) 108, Glucose 109 H, Calcium 8.6, Magnesium 2.0, Total Bilirubin 0.2, AST 25, ALT 47, Alkaline Phosphatase 104, Total Protein 6.6, Albumin 3.7, Globulin 2.9, Albumin/Globulin Ratio 1.3 I & O for Last 24 hours: Intake & Output 12/18/23 12/19/23 12/20/23 12/21/23 23:59 23:59 23:59 23:59 Intake Total 980 / 980 Output Total 0 / 0 Balance 980 / 980 Weight 178 lb 177 lb 15.667 oz Constitutional Constitutional: no acute distress and cooperative *Routine HEENT Exam Eye: Present PERRL *Routine Respiratory Exam Respiratory: Present CTA bilaterally; Absent accessory muscle use, wheezes or crackles *Routine Cardiovascular Exam Cardiovascular: Present RRR, Normal S1 and Normal S2; Absent murmur, gallop or rubs *Routine Abdominal Exam Abdominal: Present soft; Absent tenderness *Routine Extremities Exam Extremities: Present pulses intact; Absent cyanosis or edema *Routine Skin Exam Skin: Present intact; Absent erythema or wounds *Routine Neurological Exam Neurological: Present alert and oriented X3 Routine Psychiatric Exam Psychiatric: Present cooperative Meds Home Medications and Allergies Home Medications Medication Instructions Recorded Confirmed Type aspirin 81 mg tablet,delayed 81 mg PO DAILY Blood Thinner 12/14/23 12/20/23 History release atorvastatin 80 mg tablet 80 mg PO DAILY Cholesterol 12/14/23 12/20/23 History clopidogrel 75 mg tablet 75 mg PO DAILY Blood Thinner 12/14/23 12/20/23 History hydrochlorothiazide 25 mg tablet 25 mg PO DAILY Fluid 12/14/23 12/20/23 History hydroxyzine pamoate 50 mg capsule 50 mg PO TIDP PRN Anxiety 12/14/23 12/20/23 History metoprolol succinate 50 mg 50 mg PO DAILY High Blood Pressure 12/14/23 12/20/23 History tablet,extended release 24 hr ranolazine 500 mg tablet,extended 500 mg PO BID Chest Pain 12/14/23 12/20/23 History release,12 hr topiramate 50 mg tablet 50 mg PO DAILY Pain 12/14/23 12/20/23 History amlodipine 10 mg tablet 10 mg PO DAILY High Blood Pressure 12/15/23 12/20/23 History buspirone 30 mg tablet 15 mg PO HS Anxiety 12/15/23 12/20/23 History isosorbide mononitrate 30 mg 30 mg PO DAILY Chest Pain 12/15/23 12/20/23 History tablet,extended release 24 hr pantoprazole 40 mg tablet,delayed 40 mg PO BID Acid Reflux 30 days 12/17/23 12/20/23 Rx release #60 tabs furosemide 40 mg tablet 20 mg PO DAILY 30 days #15 tabs 12/21/23 Rx metformin 500 mg tablet 500 mg PO BIDWMEAL 30 days #60 tabs 12/21/23 Rx New Prescriptions to Start Prescriptions: furosemide Pepe Enriquez metformin Pepe Enriquez Allergies Allergy/AdvReac Type Severity Reaction Status Date / Time lisinopril Allergy Verified 12/20/23 13:13 oxycodone [From Percocet] Allergy Verified 12/20/23 13:13 Sulfa (Sulfonamide Allergy Verified 12/20/23 13:13 Antibiotics) Assessment and Plan *Assessment and plan (1) Coronary artery disease: Status: Acute Qualifiers: Coronary Disease-Associated Artery/Lesion type: [place] artery [place] vs. transplanted heart: [place] heart Associated angina: with unstable angina Qualified Code(s): I25.110 - Atherosclerotic heart disease of [place] coronary artery with unstable angina pectoris Category: Medical Code(s): I25.10 - Atherosclerotic heart disease of [place] coronary artery without angina pectoris (2) Diastolic dysfunction: Status: Acute Category: Medical Code(s): I51.89 - Other ill-defined heart diseases (3) GERD (gastroesophageal reflux disease): Status: Acute Qualifiers: Esophagitis presence: esophagitis presence not specified Qualified Code(s): K21.9 - Gastro-esophageal reflux disease without esophagitis Category: Medical Code(s): K21.9 - Gastro-esophageal reflux disease without esophagitis Plan CAD with chest pain unspecified -Left heart cath with patent stent here -Continue DAPT, beta-haresh, statin, Ranexa. Follow-up outpatient Diastolic dysfunction -Severely elevated end-diastolic pressure noted on left heart cath, interestingly her 2D echo recently was normal -Suspect underlying sleep apnea, she does endorse daytime somnolence and heavy snoring -Check outpatient sleep study GERD -Per primary service and GI Patient is CV stable for discharge home, she needs follow-up in our office 1 to 2 weeks post
--- NOTE | 2023-12-25 11:04 | CARE MANAGER ---
Attempted to contact patient x2 related to hospital discharge and left VM message. BRAD [place]
== END 2023-12-21 13:55 | disposition home or self-care (01) ==
LOC: ER 15:14 → ICU 16:24 → CATHLAB 16:39 → ICU 18:37
PROVIDERS: Emergency Medicine; Internal Medicine; Admitting Provider Internal Medicine Adolescent Medicine; Emergency Provider Emergency Medicine; PCP Nurse Practitioner; Visit Provider Internal Medicine Adolescent Medicine
DX: I25.110 Atherosclerotic heart disease of native coronary artery with unstable angina pectoris (principal); I50.30 Unspecified diastolic (congestive) heart failure; I11.0 Hypertensive heart disease with heart failure; E78.5 Hyperlipidemia, unspecified; K21.9 Gastro-esophageal reflux disease without esophagitis; Z95.5 Presence of coronary angioplasty implant and graft; F17.210 Nicotine dependence, cigarettes, uncomplicated; E66.9 Obesity, unspecified; Z68.42 Body mass index [BMI] 45.0-49.9, adult; Z79.899 Other long term (current) drug therapy; Z79.01 Long term (current) use of anticoagulants; T82.855A Stenosis of coronary artery stent, initial encounter
CPT/HCPCS: 36415; 71046; 76705; 80048; 80053; 83735; 84484; 85025; 93458; 99152; 99153; 99285; C1725; C1760; C1769; G0378; J1644; Q9967

== ENCOUNTER 2023-12-24 14:58 | Outpatient (CLI) | payer OTHER, SELFPAY ==
--- NOTE | 2023-12-24 15:04 | CT_ITS ---
FINAL REPORT CLINICAL HISTORY: NICOTINE DEPENDENCE smoker, 1 pack per day for 30 yrs exposure to diesel fumes h/o of ovarian & cervical cancer (20 years ago) FINDINGS: CTDI vol (mGy): 2.90 DLP: 100.[address] images of the chest were obtained using the low-dose protocol for screening. There is no evidence of mediastinal or hilar mass or adenopathy. No axillary mass or adenopathy is identified. On the lung window images, there are a few scattered, 3 mm and less nodules bilaterally. There is no dominant lesion identified. These are likely benign or inflammatory. IMPRESSION: 3 mm or less pulmonary nodules. No dominant lesion. Lung RADS category 2. Recommend 12 month followup low-dose CT for further evaluation. Reviewed, Interpreted and Dictated by Zeyad Salvador MD Transcribed by Gardenia Conteh Authenticated and [facility]
== END 2023-12-24 23:59 ==
LOC: RAD 14:59
PROVIDERS: PCP Nurse Practitioner; Visit Provider Nurse Practitioner
DX: Z12.2 Encounter for screening for malignant neoplasm of respiratory organs (principal); Z87.891 Personal history of nicotine dependence
CPT/HCPCS: 71271

== ENCOUNTER 2023-12-27 13:21 | Outpatient (CLI) | payer OTHER, SELFPAY ==
[2024-01-01 22:11] LABS: Pancreatic Elastase, Fecal <50 (>200)
== END 2023-12-27 23:59 ==
LOC: LAB.DROPOF 13:22
PROVIDERS: PCP Nurse Practitioner; Visit Provider Nurse Practitioner Family
DX: R14.0 Abdominal distension (gaseous) (principal); R15.0 Incomplete defecation
CPT/HCPCS: 82656

== ENCOUNTER 2023-12-27 14:32 | Outpatient (CLI) | payer OTHER, SELFPAY ==
--- NOTE | 2023-12-27 14:32 | CA_ITS ---
FINAL REPORT CLINICAL HISTORY: Pseudo? Radial artery occlusion? Post cath 1 week. GERD, HTN, smoker, SOB, Abn EKG, bruising at right wrist. Patient states that she's been applying pressure to the site and it relieves the pain. FINDINGS: Spectral and Doppler waveform evaluations of the right wrist was performed. Spectral analysis was performed. There is no evidence of pseudoaneurysm of the right radial artery. IMPRESSION: No evidence of pseudoaneurysm. Reviewed, Interpreted and Dictated by Zeyad Salvador MD Transcribed by Magdalena Castaneda Authenticated and [facility]
== END 2023-12-27 23:59 ==
LOC: RT 14:32
PROVIDERS: PCP Nurse Practitioner; Visit Provider Physician Assistant
DX: M79.601 Pain in right arm (principal)
CPT/HCPCS: 93931

== ENCOUNTER 2024-01-13 17:35 | Emergency (ER) | payer OTHER, SELFPAY ==
--- NOTE | 2024-01-13 17:42 | ECG_ITS ---
APPROVED REPORT Exam: Resting ECG HR:72 bpm ECG Measurements Heart Rate 72 AXES HI 150 P 65 QRSd 80 QRS -5 QT 396 T 44 QTc 420 Conclusion SINUS RHYTHM NORMAL ECG UNCONFIRMED REPORT Electronically signed by : Adolph Bennett MD 01/15/2024 20:13:55
[2024-01-13 17:48] VITALS: BMI 35.3
[2024-01-13] MEDS: ONDANSETRON 4MG/2ML VIAL 4 MG IV (17:52)
--- NOTE | 2024-01-13 17:53 | XR_ITS ---
PROCEDURE INFORMATION: Exam: XR Chest Exam date and time: 01/13/2024 5:53 PM Age: 48 years old Clinical indication: Pain; Chest pressure; Additional info: Chest pain TECHNIQUE: Imaging protocol: Radiologic exam of the chest. Views: 1 view. COMPARISON: CT LUNG SCREENING 12/24/2023 3:07 PM FINDINGS: Lungs: No consolidation. Pleural spaces: No pleural effusion. No pneumothorax. Heart/Mediastinum: No cardiomegaly. Bones/joints: Unremarkable. IMPRESSION: No acute pulmonary findings.
[2024-01-13 17:55] VITALS: BP 183/100; PULSE 70; RESP 18; TEMP 36.8; O2SAT 98; BMI 35.3
--- NOTE | 2024-01-13 17:59 | HMH.EDGENADL ---
Discharge Plan Disposition Patient Disposition: Home, Self-Care Prescriptions Prescriptions: No Action ondansetron HCl 4 mg tablet 4 mg PO PRN amlodipine [Norvasc] 10 mg tablet 10 mg PO DAILY Emgality Pen 120 mg/mL pen injector 120 mg SQ QMONTH Qty: 1 2RF Rx Instructions: 1st injection to be administered in clinic for education/training/loading dose Ubrelvy 100 mg tablet 100 mg PO ONCE PRN (Reason: migraine) Qty: 10 2RF Rx Instructions: Take 1 tablet (100 mg) once at onset of migraine symptoms. May repeat after 2 hours if symptoms persist. Max dose 2 tabs in 24 hours furosemide 40 mg Tablet 20 mg PO DAILY 30 Days Qty: 15 0RF potassium chloride [Klor-Con M20] 20 mEq Tablet,Er Particles/Crystals 20 meq PO BID 30 Days Qty: 60 0RF atorvastatin 80 mg tablet 80 mg PO DAILY metoprolol succinate 50 mg tablet extended release 24 hr 50 mg PO DAILY Patient Comments: TAKE 1 TABLET BY MOUTH EVERY DAY clopidogrel 75 mg tablet 75 mg PO DAILY Patient Comments: TAKE 1 TABLET BY MOUTH EVERY DAY aspirin 81 mg tablet,delayed release (DR/EC) 81 mg PO DAILY ranolazine 500 mg tablet extended release 12 hr 500 mg PO BID Patient Comments: TAKE 1 TABLET BY MOUTH TWICE DAILY hydroxyzine pamoate 50 mg Capsule 50 mg PO TIDP PRN (Reason: Anxiety) buspirone 30 mg tablet 15 mg PO HS pantoprazole 40 mg Tablet,Delayed Release (Dr/Ec) 40 mg PO BID 30 Days Qty: 60 0RF Referrals Follow up/Referrals: Víctor Reyes MD [Staff Physician] - See instructions Laura Cobian APRN [Primary Care Provider] - See instructions Activity Restrictions/Add. Instructions Additional Instructions/Restrictions: Please follow-up with Dr. Reyes regarding her chronic hypertension. No evidence of acute endorgan damage to warrant emergently dropping your blood pressure please keep a blood pressure log as discussed in follow-up with him regarding management of your blood pressure in an outpatient setting. No evidence of acute endorgan damage or emergency associated with your symptoms today. Clinical Impressions Clinical Impression: Chest pain, Headache, Hypertension Discharge ED Provider: Donna Pack General Adult HPI General Chief complaint: Chest Pain Stated complaint: tightness in chest, soa, hbp, headache Time Seen by Provider: 01/13/24 18:01 History of Present Illness HPI narrative: Patient is a 48-year-old female presenting today with hypertension chest discomfort shortness of breath and headache. Her primary reason for visiting the emergency department is her headache. Headache has been slowly worsening today no thunderclap component to this no fevers chills meningismus photophobia etc. No neurologic symptoms. Patient has had chest discomfort all day today which she describes as chronic pressure in her chest nonradiating no diaphoresis there is mild shortness of breath associate with this. Her primary concern is her hypertension today. 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 She is been unable to get it down which is 1 biggest reason she came to the emergency department today. Related Data Home Medications Medication Instructions Recorded Confirmed aspirin 81 mg tablet,delayed 81 mg PO DAILY Blood Thinner 12/14/23 12/31/23 release atorvastatin 80 mg tablet 80 mg PO DAILY Cholesterol 12/14/23 12/31/23 clopidogrel 75 mg tablet 75 mg PO DAILY Blood Thinner 12/14/23 12/31/23 hydroxyzine pamoate 50 mg capsule 50 mg PO TIDP PRN Anxiety 12/14/23 12/31/23 metoprolol succinate 50 mg 50 mg PO DAILY High Blood Pressure 12/14/23 12/31/23 tablet,extended release 24 hr ranolazine 500 mg tablet,extended 500 mg PO BID Chest Pain 12/14/23 12/31/23 release,12 hr buspirone 30 mg tablet 15 mg PO HS Anxiety 12/15/23 12/31/23 amlodipine 10 mg tablet (Norvasc) 10 mg PO DAILY 12/31/23 12/31/23 ondansetron HCl 4 mg tablet 4 mg PO PRN 12/31/23 12/31/23 Previous Rx's Medication Instructions Recorded pantoprazole 40 mg tablet,delayed 40 mg PO BID Acid Reflux 30 days 12/17/23 release #60 tabs furosemide 40 mg tablet 20 mg PO DAILY 30 days #15 tabs 12/21/23 potassium chloride 20 mEq 20 meq PO BID 30 days #60 tabs 12/21/23 tablet,extended release(part/cryst) (Klor-Con M) galcanezumab-gnlm 120 mg/mL 120 mg SQ QMONTH chronic migraine 12/31/23 subcutaneous pen injector #1 mL (Emgality Pen) ubrogepant 100 mg tablet (Ubrelvy) 100 mg PO ONCE PRN migraine #10 12/31/23 tabs Allergies Allergy/AdvReac Type Severity Reaction Status Date / Time lisinopril Allergy Verified 12/27/23 13:49 oxycodone [From Percocet] Allergy Verified 12/27/23 13:49 Sulfa (Sulfonamide Allergy Verified 12/27/23 13:49 Antibiotics) [facility] Disclaimer: The information contained in this section may have been updated after the patient was seen, as this information can be updated by other users. Medical History Carpal tunnel syndrome of left wrist Cervical cancer HISTORY OF GERD (gastroesophageal reflux disease) Hypertension Hypoglycemia Ovarian cancer HISTORY OF Surgical History H/O LEEP History of History of cardiac cath Family History Other Family history of diabetes mellitus type II Family history of hyperlipidemia Family history of hypertension Social History (Updated 12/31/23 @ 15:20 by Nidia Li) Smoking Status: Former smoker alcohol intake: never substance use type: denies use current occupational status: unemployed Travel in the last 8 weeks: None household members: significant other housing: house marital status: single ROS Obtained: Yes All systems reviewed & no additional complaints except as documented Physical Exam General General appearance: alert Respiratory Respiratory exam: Present normal lung sounds bilaterally; Absent respiratory distress Cardiovascular Cardiovascular exam: Present regular rate and normal rhythm Neurological Exam Neurological exam: Present alert Medical Decision Making Billy Inquiry Pt receiving controlled substance: No Vital Signs: 01/13/24 17:55 01/13/24 18:00 Temperature 98.3 F Temperature Source Oral Pulse Rate 70 Pulse Rate [Left] 70 Respiratory Rate 18 Blood Pressure 161/107 H Blood Pressure [Right Arm] 183/100 H Blood Pressure Mean [Right Arm] 127 Blood Pressure Source [Right Arm] Automatic Cuff Blood Pressure Position [Right Arm] Sitting 02 Sat by Pulse Oximetry 98 98 Oxygen Delivery Method Room Air Room Air Lab Data Lab results reviewed: Yes I reviewed the patient's lab results. Lab Results 01/13/24 17:45: WBC 8.6, RBC 4.21, Hgb 13.2, Hct 38.4, MCV 91.3, MCH 31.5 H, MCHC 34.5, RDW 13.8, Plt Count 339, MPV 8.6, Neut % (Auto) 55.9, Lymph % (Auto) 36.4, [place] % (Auto) 6.5, Eos % (Auto) 0.9, Baso % (Auto) 0.4, Neut # (Auto) 4.8, Lymph # (Auto) 3.1, [place] # (Auto) 0.6, Eos # (Auto) 0.1, Baso # (Auto) 0.0, Sodium 139, Potassium 3.7, Chloride 107, Carbon Dioxide 31 H, Anion Gap 4.7 L, BUN 10, Creatinine 0.70, Estimated Creat Clear 123, Estimated GFR 89, Est GFR ( Amer) 108, Glucose 103 H, Calcium 9.1, Troponin I < 0.01 01/13/24 17:45 01/13/24 17:45 Orders (Tests/Meds): ED MEDICATIONS Generic Name Dose Route Start Last Admin Trade Name Freq PRN Reason Stop Dose Admin Sodium Chloride 10 ml 01/13/24 17:53 Sodium Chloride 0.9% 10ml Flush Syringe IV 02/12/24 17:52 NEEDED PRN Maintain IV Site Discontinued Medications Generic Name Dose Route Start Last Admin Trade Name Freq PRN Reason Stop Dose Admin Diphenhydramine HCl 25 mg 01/13/24 18:07 01/13/24 18:25 Diphenhydramine 50mg/Ml Vial IV 01/13/24 18:08 25 mg ONCE ONE Administration Lactated Ringer's 1,000 mls @ 999 mls/hr 01/13/24 18:15 01/13/24 18:24 Lactated Ringer's 1000 Ml Bag IV 01/13/24 19:15 999 mls/hr .Q1H1M JOEL Administration Ketorolac Tromethamine 15 mg 01/13/24 18:07 01/13/24 18:25 Ketorolac 30mg/Ml Vial IV 01/13/24 18:08 15 mg ONCE ONE Administration Ondansetron HCl 4 mg 01/13/24 17:48 01/13/24 17:52 Ondansetron 4mg/2ml Vial IV 01/13/24 17:49 4 mg ONCE ONE Administration Prochlorperazine Edisylate 10 mg 01/13/24 18:07 01/13/24 18:25 Prochlorperazine 10mg/2ml Vial IV 01/13/24 18:08 10 mg ONCE ONE Administration ORDERS Category Date Time Status XR chest portable Stat Exams 01/13/24 17:53 Completed Basic Metabolic Panel Stat Lab 01/13/24 17:45 Completed Complete Blood Count Auto Diff Stat Lab 01/13/24 17:45 Completed Troponin I Q3H Lab 01/13/24 21:00 Ordered Troponin I Q3H Lab 01/14/24 00:00 Ordered Troponin I Stat Lab 01/13/24 17:45 Completed ECG Data Tracing #1: I reviewed this ECG and interpreted as documented below: Person interpreted the EKG shows a ventricular rate of 72 normal axis no acute ischemic changes noted no conduction abnormalities HEART Score History (anamnesis): Slightly suspicious ECG: Normal Age: 45-65 years Risk factors: Atherosclerosis history Troponin: </= normal limit HEART Score: 3 Medical Decision Narrative: Very well-appearing 48-year-old female here primarily today for headache and hypertension. Clinically I am not concerned about endorgan damage in this particular presentation. EKG is nonischemic we will get a single troponin as she has had symptoms lasting all day. No serial troponins were noted. She is PERC negative no concern for pulmonary embolism. She has had a slow worsening headache today with a normal neurologic exam this is not consistent with subarachnoid hemorrhage vascular dissection meningitis etc. Will treat her primarily for headache would not directly intervene on her blood pressures this is not consistent with hypertensive emergency rather asymptomatic hypertension hypertension without endorgan damage. Will advise that she follow back up with her primary care doctor and keep a blood pressure log to escalate her blood pressure medications in an outpatient setting if her workup above is negative. Reassessment 7:32 PM patient feeling much better headache has resolved and serial neurologic exams are normal. Labs unremarkable this not consistent with acute cardiopulmonary emergency or neurologic emergency. Patient's been advised to keep a blood pressure log and to follow-up with her primary care doctor or her covering machine operator regarding chronic management of this. Patient was discharged in improved and stable condition. Critical Care Critical Care Time Critical Care Time: No
[2024-01-13 18:00] VITALS: BP 161/107; PULSE 70; O2SAT 98
[2024-01-13 18:08] LABS: Basophils % 0.4 % (0.1-2.0); Eosinophils # 0.1 K/mm3 (0.0-0.4); Eosinophils % 0.9 % (0.1-12.0); Hematocrit 38.4 % (37.0-47.0); Hemoglobin 13.2 g/dL (12.2-16.2); Lymphocytes # 3.1 K/mm3 (0.7-4.5); Lymphocytes % 36.4 % (10-50); Mean Corpuscular HGB Conc 34.5 g/dL (31.8-35.4); Mean Corpuscular Hemoglobin 31.5 pg (27.0-31.2); Mean Corpuscular Volume 91.3 fl (81-99); Mean Platelet Volume 8.6 fl (7.4-10.4); Monocytes # 0.6 K/mm3 (0.1-1.0); Monocytes % 6.5 % (1.7-9.3); Neutrophils # 4.8 K/mm3 (1.8-7.8); Neutrophils % 55.9 % (37.0-80.0); Platelet Count 339 K/mm3 (142-424); Red Blood Count 4.21 M/mm3 (4.20-5.40); Red Cell Distribution Width 13.8 % (11.5-17.5); White Blood Count 8.6 K/mm3 (4.8-10.8)
[2024-01-13 18:09] LABS: Chloride 107 mmol/L (98-107); Potassium 3.7 mmoL/L (3.5-5.1); Sodium 139 mmol/L (136-145)
[2024-01-13 18:12] LABS: Anion Gap 4.7 mEq/L (5-15); Blood Urea Nitrogen 10 mg/dl (7-17); Carbon Dioxide 31 mmol/L (22.0-30.0); Creatinine Clearance Estimated 123 mL/min (50-200); Estimated Glomerular Filt Rate 89 ml/min (>60); GFR (African American) 108 ML/MIN (>60)
[2024-01-13 18:13] LABS: Calcium 9.1 mg/dl (8.4-10.2); Glucose 103 mg/dl (74-100)
[2024-01-13] MEDS: LACTATED RINGERS 1000ML 1,000 ML 999 ML IV (18:24)
[2024-01-13] MEDS: PROCHLORPERAZINE 10MG/2ML VIAL 10 MG IV (18:25)
[2024-01-13] MEDS: KETOROLAC 30MG/ML VIAL 15 MG IV (18:25)
[2024-01-13] MEDS: diphenhydrAMINE 50MG/ML VIAL 25 MG IV (18:25)
[2024-01-13 18:26] LABS: Troponin I < 0.01 ng/ml (0.00-0.034)
[2024-01-13 18:30] VITALS: BP 155/98; PULSE 67; RESP 14; O2SAT 100
[2024-01-13 19:00] VITALS: BP 168/88; PULSE 67; RESP 14; O2SAT 97
[2024-01-13 19:30] VITALS: BP 146/91; PULSE 63; RESP 14; O2SAT 97
[2024-01-13 19:47] VITALS: BP 146/91; PULSE 63; RESP 14; TEMP 36.8; O2SAT 97
== END 2024-01-13 19:48 | disposition home or self-care (01) ==
PROVIDERS: Emergency Provider Student in an Organized Health Care Education/Training Program; PCP Nurse Practitioner
DX: R07.9 Chest pain, unspecified (principal); R51.9 Headache, unspecified; R06.02 Shortness of breath; I10 Essential (primary) hypertension; K21.9 Gastro-esophageal reflux disease without esophagitis; Z85.41 Personal history of malignant neoplasm of cervix uteri; Z85.43 Personal history of malignant neoplasm of ovary
CPT/HCPCS: 71045; 80048; 84484; 85025; 93005; 96361; 96374; 96375; 99285; J2405

== ENCOUNTER 2024-01-15 11:05 | Outpatient (CLI) | payer OTHER, SELFPAY ==
--- NOTE | 2024-01-15 | CA_ITS ---
FINAL REPORT TECHNIQUE: Color Doppler, duplex Doppler and gerardo scale sonography of the bilateral neck arterial vasculature was performed. Velocities were measured in the carotid arteries. Stenosis evaluation based on the validated velocity criteria. CLINICAL HISTORY: carotid bruit left, ex smoker, HTN, HLD, DM. complaining of left neck pain. FINDINGS: The peak systolic velocity of the right common carotid artery is 97 cm/s. The peak systolic velocity of the right internal carotid artery is 84 cm/s and end diastolic velocity 36 cm/s. The ICA/CCA ratio is 1.5. No significant plaque is present. The right external carotid artery is patent. The right vertebral artery is patent with antegrade flow. The peak systolic velocity of the left common carotid artery is 83 cm/s. The peak systolic velocity of the left internal carotid artery is 81 cm/s and end diastolic velocity 44 cm/s. The ICA/CCA ratio is 1.2. No significant plaque is present. The left external carotid artery is patent.The left vertebral artery is patent with antegrade flow. IMPRESSION: Less than 50% bilateral carotid stenoses. Bilateral patent vertebral arteries with antegrade flow. If indicated, CTA or MRA could further evaluate. Reviewed, Interpreted and Dictated by Ciro Shell MD Transcribed by Magdalena Castaneda Authenticated and [facility]
== END 2024-01-15 23:59 ==
LOC: RT 11:05
PROVIDERS: PCP Nurse Practitioner; Visit Provider Nurse Practitioner
DX: R09.89 Other specified symptoms and signs involving the circulatory and respiratory systems (principal)
CPT/HCPCS: 93880

== ENCOUNTER 2024-01-29 14:02 | Outpatient (CLI) | payer OTHER, SELFPAY ==
--- NOTE | 2024-01-29 14:03 | MR_ITS ---
FINAL REPORT CLINICAL HISTORY: Eval for aneurysm headaches blurry vision ringing in ears x 1 year 16 ml prohance given FINDINGS: Multiple projection images of the brain arterial vasculature were obtained without contrast. The raw data images were also reviewed. The distal internal carotid, distal vertebral and basilar arteries have an unremarkable appearance without evidence of significant stenosis or occlusion. The proximal anterior, middle and posterior cerebral arteries have an unremarkable appearance. There is no evidence of significant stenosis or major branch occlusion. No aneurysm or vascular malformation is identified. IMPRESSION: Unremarkable MR angiogram of the head. Reviewed, Interpreted and Dictated by Joe Alegre III, MD Transcribed by Magdalena Castaneda Authenticated and [facility]
--- NOTE | 2024-01-29 14:03 | MR_ITS ---
FINAL REPORT CLINICAL HISTORY: Worsening headaches, brain fog, history of cancer headaches blurry vision ringing in ears x 1 year 16 ml prohance given FINDINGS: Multiplanar MR imaging of the brain was performed without and with contrast. Multiple small foci of increased T2 signal are seen in the cerebral white matter that have a nonspecific appearance but likely represent mild chronic ischemic/gliotic changes. There is no evidence of intracranial hemorrhage or mass. No abnormal ventricular dilatation is identified. There is no evidence of shift of the midline structures. No abnormal extra-axial fluid collection is seen. No area of abnormal restricted diffusion is identified. The posterior fossa and brainstem have an unremarkable appearance. No abnormal contrast enhancement is seen. Normal major vessel vascular flow voids are seen. IMPRESSION: Mild chronic ischemic/gliotic changes. No acute intracranial abnormality. Reviewed, Interpreted and Dictated by Joe Alegre III, MD Transcribed by Magdalena Castaneda Authenticated and [facility]
[2024-01-29] MEDS: GADOTERIDOL INJ 17ML SYRINGE 16 ML IV (15:45)
[2024-01-29] MEDS: SODIUM CHLORIDE 0.9% 10ML SYR (RAD ONLY) 10 ML IV (15:45)
== END 2024-01-29 23:59 ==
LOC: RAD 14:03
PROVIDERS: PCP Nurse Practitioner; Visit Provider Nurse Practitioner Family
DX: G43.109 Migraine with aura, not intractable, without status migrainosus (principal); G43.709 Chronic migraine without aura, not intractable, without status migrainosus; G47.19 Other hypersomnia; G89.29 Other chronic pain; R06.83 Snoring; R41.89 Other symptoms and signs involving cognitive functions and awareness; Z82.49 Family history of ischemic heart disease and other diseases of the circulatory system; Z85.9 Personal history of malignant neoplasm, unspecified; Z87.891 Personal history of nicotine dependence
CPT/HCPCS: 70544; 70553; A9576

== ENCOUNTER 2024-02-01 01:01 | Emergency (ER) | payer OTHER, SELFPAY ==
[2024-02-01] VITALS (10 sets, daily range): BP systolic 127–165; BP diastolic 69–102; PULSE 58–67; RESP 13–18; TEMP 36.3–36.6; O2SAT 97–100; BMI 35.3
--- NOTE | 2024-02-01 00:58 | ECG_ITS ---
APPROVED REPORT Exam: Resting ECG HR:67 bpm ECG Measurements Heart Rate 67 AXES AK 142 P 54 QRSd 81 QRS 9 QT 423 T 33 QTc 439 Conclusion SINUS RHYTHM LOW QRS VOLTAGE IN PRECORDIAL LEADS [QRS DEFLECTION < 1.0 mV IN CHEST LEADS] MINIMAL ST DEPRESSION [0.025+ mV ST DEPRESSION] BORDERLINE ECG UNCONFIRMED REPORT Electronically signed by : CYNDIE GONZALEZ, 02/01/2024 05:36:42
--- NOTE | 2024-02-01 01:02 | ED_ITS ---
Discharge Plan Disposition Patient Disposition: Home, Self-Care Prescriptions Prescriptions: No Action diazepam 5 mg tablet 5 mg PO ONCE PRN (Reason: pre MRI) Qty: 2 0RF Rx Instructions: Bring diazepam to MRI, notify tech, take 1 tablet 30 minutes prior to MRI and if necessary, may repeat dose once. Max dose 2 tablets or 10 mg. 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 Cannot drive for 12 hours after dosing. ondansetron HCl 4 mg tablet 4 mg PO PRN Emgality Pen 120 mg/mL pen injector 120 mg SQ QMONTH Qty: 1 2RF Rx Instructions: 1st injection to be administered in clinic for education/training/loading dose Ubrelvy 100 mg tablet 100 mg PO ONCE PRN (Reason: migraine) Qty: 10 2RF Rx Instructions: Take 1 tablet (100 mg) once at onset of migraine symptoms. May repeat after 2 hours if symptoms persist. Max dose 2 tabs in 24 hours nitroglycerin 0.4 mg tablet, sublingual 0.4 mg sublingual Q5-15M PRN (Reason: chest pain) Qty: 30 0RF Rx Instructions: do not exceed 3 doses per episode metoprolol succinate 100 mg tablet extended release 24 hr 100 mg PO DAILY Qty: 30 2RF valsartan [Diovan] 80 mg tablet 80 mg PO BID Qty: 60 2RF furosemide 40 mg Tablet 20 mg PO DAILY 30 Days Qty: 15 0RF potassium chloride [Klor-Con M20] 20 mEq Tablet,Er Particles/Crystals 20 meq PO BID 30 Days Qty: 60 0RF atorvastatin 80 mg tablet 80 mg PO DAILY clopidogrel 75 mg tablet 75 mg PO DAILY Patient Comments: TAKE 1 TABLET BY MOUTH EVERY DAY aspirin 81 mg tablet,delayed release (DR/EC) 81 mg PO DAILY ranolazine 500 mg tablet extended release 12 hr 500 mg PO BID Patient Comments: TAKE 1 TABLET BY MOUTH TWICE DAILY hydroxyzine pamoate 50 mg Capsule 50 mg PO TIDP PRN (Reason: Anxiety) buspirone 30 mg tablet 15 mg PO HS pantoprazole 40 mg Tablet,Delayed Release (Dr/Ec) 40 mg PO BID 30 Days Qty: 60 0RF Referrals Follow up/Referrals: Provider,Referral, MD [Referring] - See instructions Activity Restrictions/Add. Instructions Additional Instructions/Restrictions: Please follow-up with your primary care provider. Please return to the emergency department if you develop any new or worsening symptoms or become concerned for your health. Clinical Impressions Clinical Impression: HTN (hypertension) Chest pain Qualifiers: Chest pain type: unspecified Qualified Code(s): R07.9 - Chest pain, unspecified Discharge ED Provider: Eric Cutler General Adult HPI General Chief complaint: Chest Pain Stated complaint: chest pain Time Seen by Provider: 02/01/24 01:01 History of Present Illness HPI narrative: 48-year-old female with history of coronary artery disease, high blood pressure, [id number] diabetes presents with chest pain. She reports it is left-sided in nature. Is been ongoing for the last 2 hours. She took a nitroglycerin and got a headache. She did not take any other medications. She is on chronic aspirin and Plavix after she had a stent approximately 1 year ago. She reports that she has been more physically active over the last couple of days, including picking up her grandson. She reports mild nasal congestion recently but denies fever. She reports that her blood pressure was elevated up to 180 at home and this was concerning to her. Related Data Home Medications Medication Instructions Recorded Confirmed aspirin 81 mg tablet,delayed 81 mg PO DAILY Blood Thinner 12/14/23 01/28/24 release atorvastatin 80 mg tablet 80 mg PO DAILY Cholesterol 12/14/23 01/28/24 clopidogrel 75 mg tablet 75 mg PO DAILY Blood Thinner 12/14/23 01/28/24 hydroxyzine pamoate 50 mg capsule 50 mg PO TIDP PRN Anxiety 12/14/23 01/28/24 ranolazine 500 mg tablet,extended 500 mg PO BID Chest Pain 12/14/23 01/28/24 release,12 hr buspirone 30 mg tablet 15 mg PO HS Anxiety 12/15/23 01/28/24 ondansetron HCl 4 mg tablet 4 mg PO PRN 12/31/23 01/28/24 Previous Rx's Medication Instructions Recorded pantoprazole 40 mg tablet,delayed 40 mg PO BID Acid Reflux 30 days 12/17/23 release #60 tabs furosemide 40 mg tablet 20 mg (1/2 x 40 mg) PO DAILY 30 12/21/23 days #15 tabs potassium chloride 20 mEq 20 meq PO BID 30 days #60 tabs 12/21/23 tablet,extended release(part/cryst) (Klor-Con M) galcanezumab-gnlm 120 mg/mL 120 mg SQ QMONTH chronic migraine 12/31/23 subcutaneous pen injector #1 mL (Emgality Pen) ubrogepant 100 mg tablet (Ubrelvy) 100 mg PO ONCE PRN migraine #10 12/31/23 tabs diazepam 5 mg tablet 5 mg PO ONCE PRN pre MRI #2 tabs 01/17/24 metoprolol succinate 100 mg 100 mg PO DAILY #30 tabs 01/28/24 tablet,extended release 24 hr nitroglycerin 0.4 mg sublingual 0.4 mg sublingual Q5-15M PRN chest 01/28/24 tablet pain #30 tabs valsartan 80 mg tablet (Diovan) 80 mg PO BID #60 tabs 01/28/24 Allergies Allergy/AdvReac Type Severity Reaction Status Date / Time lisinopril Allergy Verified 01/28/24 14:07 oxycodone [From Percocet] Allergy Verified 01/28/24 14:07 Sulfa (Sulfonamide Allergy Verified 01/28/24 14:07 Antibiotics) [facility] Disclaimer: The information contained in this section may have been updated after the patient was seen, as this information can be updated by other users. Medical History Carpal tunnel syndrome of left wrist Cervical cancer HISTORY OF GERD (gastroesophageal reflux disease) Hypertension Hypoglycemia Ovarian cancer HISTORY OF Surgical History H/O LEEP History of History of cardiac cath Family History Other Family history of diabetes mellitus type II Family history of hyperlipidemia Family history of hypertension Social History Smoking Status: Former smoker alcohol intake: never substance use type: denies use current occupational status: unemployed Travel in the last 8 weeks: None household members: significant other housing: house marital status: single ROS Obtained: Yes All systems reviewed & no additional complaints except as documented Physical Exam General General appearance: alert and in no apparent distress Head Head exam: atraumatic and normocephalic Eye Eye exam: Present normal appearance, PERRL and EOMI ENT ENT exam: Present normal oropharynx and normal external ear exam Neck Neck exam: Present normal inspection and full ROM Chest Chest inspection: Present normal inspection, symmetric chest wall rise and tenderness (Mild, left anterior chest) Respiratory Respiratory exam: Present normal lung sounds bilaterally; Absent respiratory distress Cardiovascular Cardiovascular exam: Present regular rate and normal rhythm Abdominal Exam Abdominal exam: Present soft; Absent distention, tenderness or guarding Extremities Exam Extremities exam: Present normal inspection; Absent edema or joint swelling Back Exam Back exam: Present normal inspection; Absent tenderness Neurological Exam Neurological exam: Present alert and oriented X3; Absent motor sensory deficit Psychiatric Psychiatric exam: Present normal affect and normal mood Skin Skin exam: Present warm, dry and normal color Lymphatic Lymphatic Findings: no adenopathy Medical Decision Making Medical Records Medical records reviewed: Yes I reviewed the patient's medical records. Billy Inquiry Pt receiving controlled substance: No Billy was queried for this patient: No Vital Signs: 02/01/24 01:01 02/01/24 01:04 02/01/24 01:31 Temperature 97.4 F L Temperature Source Oral Pulse Rate 67 59 L Pulse Rate [Left] 67 Respiratory Rate 18 13 Blood Pressure 160/101 H Blood Pressure [Right Arm] 165/85 H Blood Pressure Mean Blood Pressure Mean [Right Arm] 111 02 Sat by Pulse Oximetry 97 100 02/01/24 02:01 02/01/24 02:31 02/01/24 02:33 Temperature Temperature Source Pulse Rate 65 61 61 Pulse Rate [Left] Respiratory Rate 14 14 14 Blood Pressure 148/92 H 163/102 H 148/93 H Blood Pressure [Right Arm] Blood Pressure Mean 121 111 Blood Pressure Mean [Right Arm] 02 Sat by Pulse Oximetry 98 99 98 02/01/24 03:01 02/01/24 03:31 02/01/24 04:01 Temperature Temperature Source Pulse Rate 61 62 58 L Pulse Rate [Left] Respiratory Rate 16 15 17 Blood Pressure 146/96 H 127/75 129/69 Blood Pressure [Right Arm] Blood Pressure Mean 113 92 Blood Pressure Mean [Right Arm] 02 Sat by Pulse Oximetry 99 100 100 Lab Data Lab results reviewed: Yes I reviewed the patient's lab results. Lab Results 02/01/24 01:02: WBC 7.9, RBC 4.46, Hgb 13.7, Hct 43.0, MCV 96.3, MCH 30.7, MCHC 31.9, RDW 13.8, Plt Count 415, MPV 8.2, Neut % (Auto) 39.9, Lymph % (Auto) 49.6, [place] % (Auto) 8.2, Eos % (Auto) 1.4, Baso % (Auto) 0.9, Neut # (Auto) 3.2, Lymph # (Auto) 3.9, [place] # (Auto) 0.7, Eos # (Auto) 0.1, Baso # (Auto) 0.1, Sodium 138, Potassium 3.9, Chloride 106, Carbon Dioxide 29, Anion Gap 6.9, BUN 17, Creatinine 0.80, Estimated Creat Clear 108, Estimated GFR 77, Est GFR ( Amer) 93, Glucose 109 H, Calcium 9.3, Total Bilirubin 0.3, AST 28, ALT 46, A lkaline Phosphatase 128 H, Troponin I < 0.01, Total Protein 7.5, Albumin 4.3, Globulin 3.2, Albumin/Globulin Ratio 1.3, Lipase 68 02/01/24 03:37: Troponin I < 0.01 02/01/24 01:02 02/01/24 01:02 Orders (Tests/Meds): ED MEDICATIONS Discontinued Medications Generic Name Dose Route Start Last Admin Trade Name Freq PRN Reason Stop Dose Admin Acetaminophen 1,000 mg 02/01/24 01:02 02/01/24 01:17 Acetaminophen 500mg Tab PO 02/01/24 01:03 1,000 mg ONCE ONE Administration Aspirin 325 mg 02/01/24 01:02 02/01/24 01:17 Aspirin 325mg Tablet PO 02/01/24 01:03 325 mg ONCE ONE Administration Lidocaine HCl 15 ml 02/01/24 01:02 02/01/24 01:17 Lidocaine 2% Viscous Ting 15ml Udc PO 02/01/24 01:03 15 ml ONCE ONE Administration Methocarbamol 500 mg 02/01/24 01:02 02/01/24 01:17 Methocarbamol 500mg Tablet PO 02/01/24 01:03 500 mg ONCE ONE Administration Ondansetron HCl 4 mg 02/01/24 01:02 02/01/24 01:17 Ondansetron 4mg/2ml Vial IV 02/01/24 01:03 4 mg ONCE ONE Administration ORDERS Category Date Time Status CXR --portable [XR chest portable] Stat Exams 02/01/24 01:02 Completed CBC w/Auto Diff [Complete Blood Count Auto Diff] Stat Lab 02/01/24 01:02 Completed CMP [Comprehensive Metabolic Panel] Stat Lab 02/01/24 01:02 Completed Lipase Stat Lab 02/01/24 01:02 Completed Troponin I Q3H Lab 02/01/24 01:02 Completed Troponin I Q3H Lab 02/01/24 03:37 Completed ECG Data Tracing #1: I reviewed this ECG and interpreted as documented below: Sinus rhythm, rate of 67, subtle ST depression in II, no reciprocal changes, no evidence of arrhythmia ECG initial impression date: 02/01/24 ECG initial impression time: 00:58 HEART Score History (anamnesis): Slightly suspicious ECG: Non-specific disturbance Age: 45-65 years Risk factors: Atherosclerosis history Troponin: </= normal limit HEART Score: 4 Medical Decision Narrative: 48-year-old female with history of coronary artery disease, hypertension, obesity, diabetes presents with left anterior chest pain for the last 2 hours.. History was obtained interactive discussion with patient, chart review. On arrival, patient is [afebrile, hemodynamically stable, satting appropriately, alert, oriented x4, GCS 15], moving all extremities spontaneously. Blood pressure 165 systolic on arrival. Full physical exam performed and significant for mild left anterior chest wall tenderness. Differential includes but is not limited to ACS, PE, hypertensive emergency, hypertensive urgency, musculoskeletal chest pain, GERD, pneumonia, pneumothorax.. Patient was given full dose aspirin, p.o. Tylenol, Zofran, viscous lidocaine for symptomatic management and correction of underlying abnormalities. Workup initiated including CBC CMP troponin EKG chest x-ray. Patient is PERC negative and does not require D-dimer for assessment of PE.. Patient placed on property assessment monitor. On re-evaluation, patient [remains afebrile, HD stable.] Blood pressure improving spontaneously. Laboratory workup independently interpreted by me and significant for initial negative troponin, no significant leukocytosis, baseline renal function.. Imaging independently interpreted by me and significant for chest x-ray without focal opacity. See radiology read for full review of final results. EKG independently interpreted by me and significant for normal sinus rhythm as documented above. Patient was placed in ED observation status at 2 AM for serial troponins, cardiac monitoring and to prevent potentially unnecessary admission. On reassessment, patient reports complete symptomatic resolution. Second troponin returned within normal limits. Given this, patient was deemed appropriate for outpatient management. ED observation status discontinued at 4:15 AM, total time in observation 2 hours and 15 minutes. Interactive discussion was had with patient regarding her presentation. Low concern for cardiac pathology at this time. Most likely related to her increased physical activity over the last couple of days. Patient instructed to follow-up with PCP and cardiology for further management of her blood pressure. Return precautions given. Procedures Risk/Benefits of Procedure(s) Were Explained: Yes Critical Care Critical Care Time Critical Care Time: No
--- NOTE | 2024-02-01 01:02 | XR_ITS ---
PROCEDURE INFORMATION: Exam: XR Chest Exam date and time: 02/01/2024 1:11 AM Age: 48 years old Clinical indication: Chest wall pain; Additional info: Left chest pain, congestion TECHNIQUE: Imaging protocol: Radiologic exam of the chest. Views: 1 view. COMPARISON: CR XR CHEST PORTABLE 01/13/2024 5:53 PM FINDINGS: Lungs: No evidence of acute pulmonary disease or infiltrates Pleural spaces: No large effusion or pneumothorax. Heart/Mediastinum: No evidence of mediastinal widening or cardiac silhouette enlargement; the mediastinum and heart appear within normal limits for contour and size. Bones/joints: No evidence of acute osseous abnormalities within the visualized portions of the thoracic spine and ribs. Osseous structures appear appropriate for patient age. IMPRESSION: No dense parenchymal consolidation, pleural effusion, or pneumothorax.
[2024-02-01 01:12] LABS: Basophils # 0.1 K/mm3 (0-0.2); Basophils % 0.9 % (0.1-2.0); Eosinophils # 0.1 K/mm3 (0.0-0.4); Eosinophils % 1.4 % (0.1-12.0); Hemoglobin 13.7 g/dL (12.2-16.2); Lymphocytes # 3.9 K/mm3 (0.7-4.5); Lymphocytes % 49.6 % (10-50); Mean Corpuscular HGB Conc 31.9 g/dL (31.8-35.4); Mean Corpuscular Hemoglobin 30.7 pg (27.0-31.2); Mean Corpuscular Volume 96.3 fl (81-99); Mean Platelet Volume 8.2 fl (7.4-10.4); Monocytes # 0.7 K/mm3 (0.1-1.0); Monocytes % 8.2 % (1.7-9.3); Neutrophils # 3.2 K/mm3 (1.8-7.8); Neutrophils % 39.9 % (37.0-80.0); Platelet Count 415 K/mm3 (142-424); Red Blood Count 4.46 M/mm3 (4.20-5.40); Red Cell Distribution Width 13.8 % (11.5-17.5); White Blood Count 7.9 K/mm3 (4.8-10.8)
[2024-02-01 01:14] LABS: Chloride 106 mmol/L (98-107); Potassium 3.9 mmoL/L (3.5-5.1); Sodium 138 mmol/L (136-145)
[2024-02-01 01:17] LABS: Alanine Aminotransferase 46 U/L (12-78); Albumin Level 4.3 g/dl (3.5-5.0); Albumin/Globulin Ratio 1.3 (1.1-1.8); Alkaline Phosphatase 128 U/L (38-126); Anion Gap 6.9 mEq/L (5-15); Aspartate Amino Transferase 28 U/L (14-36); Bilirubin,Total 0.3 mg/dl (0.2-1.3); Blood Urea Nitrogen 17 mg/dl (7-17); Calcium 9.3 mg/dl (8.4-10.2); Carbon Dioxide 29 mmol/L (22.0-30.0); Creatinine Clearance Estimated 108 mL/min (50-200); Estimated Glomerular Filt Rate 77 ml/min (>60); GFR (African American) 93 ML/MIN (>60); Globulin 3.2 g/dL (1.3-3.2); Glucose 109 mg/dl (74-100); Lipase 68 U/L (23-300); Total Protein,Serum 7.5 g/dl (6.3-8.2)
[2024-02-01] MEDS: METHOCARBAMOL 500MG TABLET 500 MG PO (01:17)
[2024-02-01] MEDS: ACETAMINOPHEN 500MG TAB 1000 MG PO (01:17)
[2024-02-01] MEDS: LIDOCAINE 2% VISCOUS SOL 15ML UDC 15 ML PO (01:17)
[2024-02-01] MEDS: ONDANSETRON 4MG/2ML VIAL 4 MG IV (01:17)
[2024-02-01] MEDS: ASPIRIN 325MG TABLET 325 MG PO (01:17)
[2024-02-01 01:30] LABS: Troponin I < 0.01 ng/ml (0.00-0.034)
--- NOTE | 2024-02-01 02:41 | PC.NURSE ---
Rounded on patient, patient helped with needs voiced.
[2024-02-01 04:02] LABS: Troponin I < 0.01 ng/ml (0.00-0.034)
--- NOTE | 2024-02-01 04:07 | PC.NURSE ---
Rounded on patient, no needs voiced at this time.
--- NOTE | 2024-02-01 04:10 | PC.NURSE ---
in room talking with patient at this time.
== END 2024-02-01 04:21 | disposition home or self-care (01) ==
PROVIDERS: Emergency Provider Emergency Medicine; PCP Nurse Practitioner
DX: R07.9 Chest pain, unspecified (principal); R51.9 Headache, unspecified; I11.9 Hypertensive heart disease without heart failure; I25.10 Atherosclerotic heart disease of native coronary artery without angina pectoris; E11.9 Type 2 diabetes mellitus without complications; K21.9 Gastro-esophageal reflux disease without esophagitis; Z95.5 Presence of coronary angioplasty implant and graft; Z87.891 Personal history of nicotine dependence
CPT/HCPCS: 71045; 80053; 83690; 84484; 85025; 93005; 96374; 99284; J2405

== ENCOUNTER 2024-02-21 12:48 | Emergency (ER) | payer OTHER, SELFPAY ==
[2024-02-21] VITALS (9 sets, daily range): BP systolic 125–181; BP diastolic 93–109; PULSE 62–88; RESP 13–20; TEMP 36.7–36.8; O2SAT 97–100
--- NOTE | 2024-02-21 13:19 | CT_ITS ---
FINAL REPORT TECHNIQUE: thin section axial CT with and without IV contrast supplemented with multiplanar 3-D reconstruction of the head. This study was performed with techniques to keep radiation doses as low as reasonably achievable, (ALARA)individualized dose reduction techniques using automated exposure control or adjustment of mA and/or kV according to the patient's size were employed. CLINICAL HISTORY: AGRAWAL, tunnel vision, balance issue, speech issue COMPARISON: None FINDINGS: HEAD CT: The ventricles are normal in size. There is no evidence of hemorrhage. No masses are identified. No extra-axial fluid is seen. The sinuses are normal. CTA: The cranial circulation is unremarkable. There is no significant stenosis, aneurysm or occlusion. IMPRESSION: No acute process. Reviewed, Interpreted and Dictated by Ciro Shell MD Transcribed by Germania Mcghee Authenticated and . [facility]
--- NOTE | 2024-02-21 13:19 | CT_ITS ---
FINAL REPORT TECHNIQUE: Axial CT images were performed through the head. Coronal reformatted images were submitted. This study was performed with techniques to keep radiation doses as low as reasonably achievable (ALARA). Individualized dose reduction techniques using automated exposure control or adjustment of mA and/or kV according to the patient's size were employed. CLINICAL HISTORY: AGRAWAL, tunnel vision, balance issue, speech issue COMPARISON: none FINDINGS: The ventricles are normal in size. There is no evidence of hemorrhage. There is no mass or edema identified. There is no abnormal extra-axial fluid seen. The sinuses are well aerated. IMPRESSION: No acute intracranial process. Reviewed, Interpreted and Dictated by Ciro Shell MD Transcribed by Germania Mcghee Authenticated and [facility]
--- NOTE | 2024-02-21 13:19 | CT_ITS ---
FINAL REPORT TECHNIQUE: The patient was injected with IV contrast. Axial images were obtained through the chest in a PE protocol. 3-D reconstruction images were also performed. Individualized dose reduction techniques using automated exposure control or adjustment of the MA and/or KV according to patient's size were employed. CLINICAL HISTORY: chest pain/palpitations/L sided numbness COMPARISON: 12/24/2019 FINDINGS: Mediastinal vasculature is adequately opacified. No pulmonary artery filling defects are identified to suggest PE. There is no aortic dissection. There is no axillary adenopathy. There is no hilar or mediastinal adenopathy. The heart size is normal. There is no pericardial or pleural effusion. No suspicious infiltrate or nodule is identified. Limited images of the upper abdomen demonstrate small benign-appearing cysts in both kidneys. IMPRESSION: No pulmonary embolus or dissection. Reviewed, Interpreted and Dictated by Ciro Shell MD Transcribed by Germania Mcghee Authenticated and [facility]
--- NOTE | 2024-02-21 13:19 | CT_ITS ---
FINAL REPORT TECHNIQUE: NASCET technique utilized for stenosis evaluation. CLINICAL HISTORY: AGRAWAL, tunnel vision, balance issue, speech issue COMPARISON: None FINDINGS: There are mild vascular calcifications of the carotid bifurcations. There is no significant underlying stenosis. RIGHT CAROTID: No significant stenosis is seen of the cervical common or internal carotid artery. LEFT CAROTID: No significant stenosis seen of the cervical common or internal carotid artery. VERTEBRALS: The vertebrals are patent. The right vertebral artery is dominant. No significant stenosis is present. IMPRESSION: No significant arterial abnormality. Reviewed, Interpreted and Dictated by Ciro Shell MD Transcribed by Germania Mcghee Authenticated and [facility]
--- NOTE | 2024-02-21 13:22 | [facility].EDCP ---
Discharge Plan Disposition Patient Disposition: Home, Self-Care Prescriptions Prescriptions: No Action diazepam 5 mg tablet 5 mg PO ONCE PRN (Reason: pre MRI) Qty: 2 0RF Rx Instructions: Bring diazepam to MRI, notify tech, take 1 tablet 30 minutes prior to MRI and if necessary, may repeat dose once. Max dose 2 tablets or 10 mg. 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 Cannot drive for 12 hours after dosing. hydralazine 25 mg tablet 25 mg PO TID PRN (Reason: htn) Qty: 90 2RF Rx Instructions: systolic > 170 valsartan 160 mg tablet 160 mg PO BID Qty: 60 2RF ondansetron HCl 4 mg tablet 4 mg PO PRN Emgality Pen 120 mg/mL pen injector 120 mg SQ QMONTH Qty: 1 2RF Rx Instructions: 1st injection to be administered in clinic for education/training/loading dose Ubrelvy 100 mg tablet 100 mg PO ONCE PRN (Reason: migraine) Qty: 10 2RF Rx Instructions: Take 1 tablet (100 mg) once at onset of migraine symptoms. May repeat after 2 hours if symptoms persist. Max dose 2 tabs in 24 hours nitroglycerin 0.4 mg tablet, sublingual 0.4 mg sublingual Q5-15M PRN (Reason: chest pain) Qty: 30 0RF Rx Instructions: do not exceed 3 doses per episode metoprolol succinate 100 mg tablet extended release 24 hr 100 mg PO DAILY Qty: 30 2RF hydrochlorothiazide 25 mg tablet 25 mg PO DAILY Qty: 30 2RF furosemide 40 mg Tablet 20 mg PO DAILY 30 Days Qty: 15 0RF potassium chloride [Klor-Con M20] 20 mEq Tablet,Er Particles/Crystals 20 meq PO BID 30 Days Qty: 60 0RF atorvastatin 80 mg tablet 80 mg PO DAILY clopidogrel 75 mg tablet 75 mg PO DAILY Patient Comments: TAKE 1 TABLET BY MOUTH EVERY DAY aspirin 81 mg tablet,delayed release (DR/EC) 81 mg PO DAILY ranolazine 500 mg tablet extended release 12 hr 500 mg PO BID Patient Comments: TAKE 1 TABLET BY MOUTH TWICE DAILY hydroxyzine pamoate 50 mg Capsule 50 mg PO TIDP PRN (Reason: Anxiety) buspirone 30 mg tablet 15 mg PO HS pantoprazole 40 mg Tablet,Delayed Release (Dr/Ec) 40 mg PO BID 30 Days Qty: 60 0RF Referrals Follow up/Referrals: Laura Cobian APRN [Primary Care Provider] - See instructions Activity Restrictions/Add. Instructions Additional Instructions/Restrictions: At this time it was felt you are safe to be discharged home. If new or worsening symptoms please do not hesitate to return the emergency department. Please follow-up with your family doctor and treatment specialist as discussed for further evaluation of your blood pressure and keeping an eye on your ovarian cyst on the left. Clinical Impressions Clinical Impression: Anxiety, Chest pain, Transient neurological symptoms, Abdominal pain, RLQ, Hypertension, Ovarian cyst Discharge ED Provider: Blaine Jiang HPI <Melissa Dodd DO - Last Filed: 02/21/24 15:37> General Chief Complaint: Shortness of Breath/Dyspnea Stated Complaint: soa, dizzy, lightheaded, cough Time Seen by Provider: 02/21/24 13:00 Mode of Arrival: Ambulatory Source of Information: Patient Limitations: No Limitations Description of Symptoms (Recalled from ER Triage Doc. by RN): Patient presents to ER with complaints of shortness of breath, tunnel vision, and high blood pressure that started last night. Patient states when she was on her way home last night and with head pressure. History of Present Illness HPI narrative: This patient is a 48-year-old female with a history of CAD status post stenting, hypertension, hyperlipidemia, diabetes, obesity, and anxiety presenting to the emergency department for evaluation with concern for multiple complaints. Patient states that she went to bed normal around 11:30 PM last night with the exception of having headache on the way home. She woke up this morning feeling tunnel vision, palpitations, shortness of breath, and having high heart rate and blood pressure readings at home. She states that she felt like her heart was racing at home and felt like it was hard to get words out. She states that she is not having slurred speech or anything like that, but she just feels like she is having to put more effort into speaking. She notes that she took all of her medications around 11:30 AM this morning, including her blood pressure medications and anxiety medications, but she is not feeling better. She notes that she tried to go to cardiology clinic for evaluation, but they sent her over here. She also states that she has had a cough today since waking up. Related Data Home Medications Medication Instructions Recorded Confirmed aspirin 81 mg tablet,delayed 81 mg PO DAILY Blood Thinner 12/14/23 02/04/24 release atorvastatin 80 mg tablet 80 mg PO DAILY Cholesterol 12/14/23 02/04/24 clopidogrel 75 mg tablet 75 mg PO DAILY Blood Thinner 12/14/23 02/04/24 hydroxyzine pamoate 50 mg capsule 50 mg PO TIDP PRN Anxiety 12/14/23 02/04/24 ranolazine 500 mg tablet,extended 500 mg PO BID Chest Pain 12/14/23 02/04/24 release,12 hr buspirone 30 mg tablet 15 mg PO HS Anxiety 12/15/23 02/04/24 ondansetron HCl 4 mg tablet 4 mg PO PRN 12/31/23 02/04/24 Previous Rx's Medication Instructions Recorded pantoprazole 40 mg tablet,delayed 40 mg PO BID Acid Reflux 30 days 12/17/23 release #60 tabs furosemide 40 mg tablet 20 mg (1/2 x 40 mg) PO DAILY 30 12/21/23 days #15 tabs potassium chloride 20 mEq 20 meq PO BID 30 days #60 tabs 12/21/23 tablet,extended release(part/cryst) (Klor-Con M) galcanezumab-gnlm 120 mg/mL 120 mg SQ QMONTH chronic migraine 12/31/23 subcutaneous pen injector #1 mL (Emgality Pen) ubrogepant 100 mg tablet (Ubrelvy) 100 mg PO ONCE PRN migraine #10 12/31/23 tabs diazepam 5 mg tablet 5 mg PO ONCE PRN pre MRI #2 tabs 01/17/24 metoprolol succinate 100 mg 100 mg PO DAILY #30 tabs 01/28/24 tablet,extended release 24 hr nitroglycerin 0.4 mg sublingual 0.4 mg sublingual Q5-15M PRN chest 01/28/24 tablet pain #30 tabs hydralazine 25 mg tablet 25 mg PO TID PRN htn #90 tabs 02/04/24 valsartan 160 mg tablet 160 mg PO BID #60 tabs 02/04/24 hydrochlorothiazide 25 mg tablet 25 mg PO DAILY #30 tabs 02/13/24 Allergies Allergy/AdvReac Type Severity Reaction Status Date / Time lisinopril Allergy Verified 02/04/24 14:54 oxycodone [From Percocet] Allergy Verified 02/04/24 14:54 Sulfa (Sulfonamide Allergy Verified 02/04/24 14:54 Antibiotics) [facility] <Melissa Dodd DO - Last Filed: 02/21/24 15:37> [facility] Disclaimer: The information contained in this section may have been updated after the patient was seen, as this information can be updated by other users. Medical History Carpal tunnel syndrome of left wrist GERD (gastroesophageal reflux disease) Hypoglycemia Cervical cancer Ovarian cancer Hypertension Surgical History History of cardiac cath H/O LEEP History of Family History Other Family history of diabetes mellitus type II Family history of hyperlipidemia Family history of hypertension Social History Smoking Status: Former smoker alcohol intake: never substance use type: denies use current occupational status: unemployed Travel in the last 8 weeks: None household members: significant other housing: house marital status: single <Melissa Dodd DO - Last Filed: 02/21/24 15:37> ROS Obtained: Yes All systems reviewed & no additional complaints except as documented Physical Exam <Melissa Dodd DO - Last Filed: 02/21/24 15:37> General General appearance: alert, in no apparent distress and anxious Comment: Extremely anxious appearing and jittery Head Head exam: atraumatic and normocephalic Eye Eye exam: Present normal appearance, PERRL and EOMI ENT ENT exam: Present normal exam, normal oropharynx, mucous membranes moist and normal external ear exam Neck Neck exam: Present normal inspection, full ROM and trachea midline; Absent tenderness Chest Chest inspection: Present normal inspection and symmetric chest wall rise; Absent tenderness Respiratory Respiratory exam: Present normal lung sounds bilaterally; Absent respiratory distress, wheezes, stridor or accessory muscle use Cardiovascular Cardiovascular exam: Present regular rate and normal rhythm Abdominal Exam Abdominal exam: Present soft; Absent distention, tenderness or guarding Extremities Exam Extremities exam: Present normal inspection, full ROM and normal capillary refill; Absent tenderness or edema Back Exam Back exam: Present normal inspection and full ROM; Absent tenderness Neurological Exam Neurological exam: Present alert, oriented X3, CN II-XII intact, normal gait and motor sensory deficit (Subjective decrease in sensation on the left side, otherwise no focal neurologic deficits) Expanded Neurological Exam Patient oriented to: Present person and time Cranial nerves: Normal: EOM function (II, III, IV, ), facial palsy (VII), spinal accessory function (XI) and tongue deviation (XII) and Abnormal Left: facial sensation (V) Cerebellar function: Normal: finger to nose and heel to gardner Cerebellar function: normal gait Motor strength - LUE: 5/5 Motor strength - RUE: 5/5 Motor strength - LLE: 5/5 Motor strength - RLE: 5/5 Upper motor neuron exam: Normal: gia neglect and pronator drift Sensory exam upper extremity: Abnormal Left: light touch Sensory exam lower extremity: Abnormal Left: light touch Coma scale eye opening: Spontaneous Coma scale motor response: Obeys commands Coma scale verbal response: Oriented Coma scale total: 15 Comment: NIH stroke scale is effectively 1 with concern for decree sensation on the left side Psychiatric Psychiatric exam: Present anxious Skin Skin exam: Present warm and dry <Blaine Jiang MD - Last Filed: 02/21/24 17:07> Expanded Neurological Exam Coma scale total: 15 HEART Score <Melissa Dodd DO - Last Filed: 02/21/24 15:37> HEART Score HEART Score assessment performed?: Yes History (anamnesis): Slightly suspicious ECG: Normal Age: 45-65 years Risk factors: Atherosclerosis history Troponin: </= normal limit HEART Score: 3 <Blaine Jiang MD - Last Filed: 02/21/24 17:07> HEART Score HEART Score: 3 Critical Care <Melissa Dodd DO - Last Filed: 02/21/24 15:37> Critical Care Time Critical Care Time: No Medical Decision Making <Melissa Dodd DO - Last Filed: 02/21/24 15:37> Medical Records Medical records reviewed: Yes I reviewed the patient's medical records. Billy Inquiry Pt receiving controlled substance: No Vital Signs Vital Signs: 02/21/24 12:49 02/21/24 13:14 02/21/24 14:03 Temperature 98.1 F Temperature Source Oral Pulse Rate 62 72 Pulse Rate [Right] 85 Respiratory Rate 18 18 Blood Pressure 181/103 H 151/108 H Blood Pressure [Right Arm] 177/109 H Blood Pressure Mean 123 Blood Pressure Mean [Right Arm] 131 Blood Pressure Source [Right Arm] Automatic Cuff 02 Sat by Pulse Oximetry 100 97 100 Oxygen Delivery Method Room Air 02/21/24 14:30 02/21/24 15:00 02/21/24 15:30 Temperature Temperature Source Pulse Rate 67 73 72 Pulse Rate [Right] Respiratory Rate 18 20 18 Blood Pressure 153/105 H 149/93 H 125/94 H Blood Pressure [Right Arm] Blood Pressure Mean 117 111 101 Blood Pressure Mean [Right Arm] Blood Pressure Source [Right Arm] 02 Sat by Pulse Oximetry 100 99 99 Oxygen Delivery Method 02/21/24 16:01 Temperature Temperature Source Pulse Rate 67 Pulse Rate [Right] Respiratory Rate 18 Blood Pressure 163/99 H Blood Pressure [Right Arm] Blood Pressure Mean 115 Blood Pressure Mean [Right Arm] Blood Pressure Source [Right Arm] 02 Sat by Pulse Oximetry 100 Oxygen Delivery Method Lab Data Labs: Lab Results 02/21/24 13:10: WBC 5.8, RBC 4.61, Hgb 14.4, Hct 44.0, MCV 95.5, MCH 31.3 H, MCHC 32.7, RDW 13.9, Plt Count 315, MPV 7.6, Neut % (Auto) 49.5, Lymph % (Auto) 41.1, O'Brien % (Auto) 7.1, Eos % (Auto) 1.8, Baso % (Auto) 0.4, Neut # (Auto) 2.9, Lymph # (Auto) 2.4, O'Brien # (Auto) 0.4, Eos # (Auto) 0.1, Baso # (Auto) 0.0, PT 10.3, INR 0.95, APTT 27.6, Sodium 137, Potassium 4.6, Chloride 106, Carbon Dioxide 26, Anion Gap 9.6, BUN 16, Creatinine 0.70, Estimated Creat Clear 3, Estimated GFR 89, Est GFR ( Amer) 108, Glucose 115 H, Calcium 9.5, Magnesium 2.1, Total Bilirubin 0.7, AST 23, ALT 39, Alkaline Phosphatase 116, Troponin I < 0.01, Total Protein 6.9, Albumin 4.2, Globulin 2.7, Albumin/Globulin Ratio 1.6, TSH 0.88, Thyroxine (T4) 8.5 02/21/24 13:19: VBG pH 7.40, VBG pCO2 41.6, VBG pO2 43.1 H, VBG HCO3 25.4, VBG Total CO2 26.6, VBG O2 Saturation 79.8 H, VBG Base Excess 0.6, VBG Lactic Acid 2.1 H 02/21/24 13:25: Urine Color Yellow, Urine Appearance Clear, Urine pH 7.0, Ur Specific [place] 1.010, Urine Protein Negative, Urine Glucose (UA) Negative, Urine Ketones Negative, Urine Blood Negative, Urine Nitrate Negative, Urine Bilirubin Negative, Urine Urobilinogen 0.2, Ur Leukocyte Esterase Negative, Urine RBC None, Urine WBC None, Ur Squamous Epith Cells 3-5, Urine Bacteria Trace 02/21/24 13:30: SARS-CoV-2 (PCR) Not detected, Influenza A Untype (PCR) Not detected, Influenza Type B (PCR) Not detected 02/21/24 16:16: Troponin I < 0.01 02/21/24 13:10 02/21/24 13:10 Response Orders (Tests/Meds): ED MEDICATIONS Generic Name Dose Route Start Last Admin Trade Name Freq PRN Reason Stop Dose Admin Sodium Chloride 10 ml 02/21/24 13:44 Sodium Chloride 0.9% 10ml Syr (Rad Only) IV 03/22/24 13:43 NEEDED PRN Maintain IV Site Discontinued Medications Generic Name Dose Route Start Last Admin Trade Name Freq PRN Reason Stop Dose Admin Acetaminophen 1,000 mg 02/21/24 15:33 02/21/24 16:17 Acetaminophen 1,000mg/100ml Vial IV 02/21/24 15:34 1,000 mg ONCE ONE Administration Lactated Ringer's 1,000 mls @ 999 mls/hr 02/21/24 15:33 02/21/24 15:58 Lactated Ringer's 1000 Ml Bag IV 02/21/24 16:33 999 mls/hr .Q1H1M ONE Administration Iopamidol 200 ml 02/21/24 13:44 02/21/24 13:47 Iopamidol-370 (76%);100ml Bottle IV 02/21/24 13:45 200 ml ONCE ONE Administration Iopamidol 75 ml 02/21/24 15:51 02/21/24 15:52 Iopamidol-370 (76%);100ml Bottle IV 02/21/24 15:52 75 ml ONCE ONE Administration Ketorolac Tromethamine 15 mg 02/21/24 15:33 02/21/24 15:57 Ketorolac 30mg/Ml Vial IV 02/21/24 15:34 15 mg ONCE ONE Administration Sodium Chloride 100 ml 02/21/24 13:44 02/21/24 13:46 0.9 % Sodium Chloride 50 Ml Vial IV 02/21/24 13:45 100 ml ONCE ONE Administration ORDERS Category Date Time Status CT abdomen pelvis w con Stat Cat Scan 02/21/24 15:[address] angio chest - dissection Stat Cat Scan 02/21/24 13:[address] angio head Stat Cat Scan 02/21/24 13:[address] angio neck Stat Cat Scan 02/21/24 13:[address] head/brain wo con Stat Cat Scan 02/21/24 13:19 Taken Activated Partial Thrombo Time Stat Lab 02/21/24 13:10 Completed Complete Blood Count Auto Diff Stat Lab 02/21/24 13:10 Completed Comprehensive Metabolic Panel Stat Lab 02/21/24 13:10 Completed Magnesium Stat Lab 02/21/24 13:10 Completed Prothrombin Time INR Stat Lab 02/21/24 13:10 Completed Rapid PCR Covid and Flu A/B Stat Lab 02/21/24 13:30 Completed T4 (Thyroxine) Stat Lab 02/21/24 13:10 Completed Thyroid Stimulating Hormone Stat Lab 02/21/24 13:10 Completed Troponin I Q3H Lab 02/21/24 16:16 Completed Troponin I Q3H Lab 02/21/24 19:30 Ordered Troponin I Stat Lab 02/21/24 13:10 Completed UA [Urinalysis and Microscopic] Stat Lab 02/21/24 13:25 Completed Venous Blood Gas Stat RT 02/21/24 13:19 Completed ECG Data Tracing #1: Attestation: I reviewed this ECG and interpreted as documented below: ECG Narrative: Normal sinus rhythm with a ventricular rate of [address] elevations concerning for ischemia. Normal intervals. ECG initial impression date: 02/21/24 ECG initial impression time: 13:27 MDM Narrative Medical Decision Narrative: In summary, this patient is a 48-year-old female presenting to the Emergency Department for evaluation of multiple complaints including tunnel vision, speech difficulty, palpitations, and high blood pressure and heart rate readings at home. Differential diagnoses considered include but are not limited to CVA, intracranial hemorrhage, hypertensive emergency, complex migraine, ACS, dysrhythmia, aortic dissection, anxiety. Ruling out the most morbid conditions drove assessment. It should be noted patient's history includes CAD, diabetes, hypertension, hyperlipidemia and anxiety which may or may not be at goal therapy. This complicates all aspects of care by increasing patient's risk for morbidity. I reviewed patient's past medical records and noted multiple previous ED evaluations with concern for similar issues and multiple previous workups for chest pain. On exam, the patient is extremely anxious appearing and jittery. Her blood pressure is high on initial assessment with systolics in the 180s, however heart rate is reassuring. She has not had any show scale of 1 for subjective decrease in sensation on the left side of the body, including the face. Otherwise, she is neurologically intact with no focal deficit. She presents outside of the tPA window, as symptoms were present when she woke up this morning and she went to bed last night around 11:30 PM. She is already medically managed on aspirin, Plavix, and statin. Cardiopulmonary exam is reassuring. EKG was obtained and is reassing as well. Patient also then began to complain that she has had mild headache, cough since this morning. Workup included CBC, CMP, troponin, TSH, T4, magnesium, PT, PTT, EKG, viral swab, urinalysis, CT stroke protocols, and CTA of the chest. Will continue to monitor the patient's vital signs on cardiac telemetry, including her blood pressure. On multiple subsequent reassessments, the patient has had improvement in her vital signs with normal heart rate and normal blood pressure with systolics in the 120s over 90s on my last assessment. She states her neurologic symptoms have resolved, and she is no longer having tunnel vision, balance issues, or speech disturbance. She also is less anxious appearing on exam. She does now complain of severe right lower quadrant abdominal pain that she feels may be a kidney stone. I did obtain a urinalysis, which does not demonstrate any bladder concerns for infection, so I feel kidney stone is unlikely. She does still have her appendix and ovaries. Unfortunately, we have already scanned her and given her contrast bolus for scans of her head, neck, and chest. I did not have any indication to scan her abdomen and pelvis at that time, however after shared decision-making, patient would like to proceed with obtaining a CT scan of her abdomen and pelvis despite the fact that it would be another dose of radiation and contrast. Will give her IV fluids to medicate. For her significant pain, she was given IV Toradol and acetaminophen. Labs thus far have demonstrated negative initial troponin and no other acutely concerning abnormalities. Viral swabs are negative. Patient care was signed out to the oncoming provider, Dr. Jiang. <Blaine Jiang MD - Last Filed: 02/21/24 17:07> Vital Signs Vital Signs: 02/21/24 12:49 02/21/24 13:14 02/21/24 14:03 Temperature 98.1 F Temperature Source Oral Pulse Rate 62 72 Pulse Rate [Right] 85 Respiratory Rate 18 18 Blood Pressure 181/103 H 151/108 H Blood Pressure [Right Arm] 177/109 H Blood Pressure Mean 123 Blood Pressure Mean [Right Arm] 131 Blood Pressure Source [Right Arm] Automatic Cuff 02 Sat by Pulse Oximetry 100 97 100 Oxygen Delivery Method Room Air 02/21/24 14:30 02/21/24 15:00 02/21/24 15:30 Temperature Temperature Source Pulse Rate 67 73 72 Pulse Rate [Right] Respiratory Rate 18 20 18 Blood Pressure 153/105 H 149/93 H 125/94 H Blood Pressure [Right Arm] Blood Pressure Mean 117 111 101 Blood Pressure Mean [Right Arm] Blood Pressure Source [Right Arm] 02 Sat by Pulse Oximetry 100 99 99 Oxygen Delivery Method 02/21/24 16:01 Temperature Temperature Source Pulse Rate 67 Pulse Rate [Right] Respiratory Rate 18 Blood Pressure 163/99 H Blood Pressure [Right Arm] Blood Pressure Mean 115 Blood Pressure Mean [Right Arm] Blood Pressure Source [Right Arm] 02 Sat by Pulse Oximetry 100 Oxygen Delivery Method Lab Data Labs: Lab Results 02/21/24 13:10: WBC 5.8, RBC 4.61, Hgb 14.4, Hct 44.0, MCV 95.5, MCH 31.3 H, MCHC 32.7, RDW 13.9, Plt Count 315, MPV 7.6, Neut % (Auto) 49.5, Lymph % (Auto) 41.1, O'Brien % (Auto) 7.1, Eos % (Auto) 1.8, Baso % (Auto) 0.4, Neut # (Auto) 2.9, Lymph # (Auto) 2.4, O'Brien # (Auto) 0.4, Eos # (Auto) 0.1, Baso # (Auto) 0.0, PT 10.3, INR 0.95, APTT 27.6, Sodium 137, Potassium 4.6, Chloride 106, Carbon Dioxide 26, Anion Gap 9.6, BUN 16, Creatinine 0.70, Estimated Creat Clear 3, Estimated GFR 89, Est GFR ( Amer) 108, Glucose 115 H, Calcium 9.5, Magnesium 2.1, Total Bilirubin 0.7, AST 23, ALT 39, Alkaline Phosphatase 116, Troponin I < 0.01, Total Protein 6.9, Albumin 4.2, Globulin 2.7, Albumin/Globulin Ratio 1.6, TSH 0.88, Thyroxine (T4) 8.5 02/21/24 13:19: VBG pH 7.40, VBG pCO2 41.6, VBG pO2 43.1 H, VBG HCO3 25.4, VBG Total CO2 26.6, VBG O2 Saturation 79.8 H, VBG Base Excess 0.6, VBG Lactic Acid 2.1 H 02/21/24 13:25: Urine Color Yellow, Urine Appearance Clear, Urine pH 7.0, Ur Specific [place] 1.010, Urine Protein Negative, Urine Glucose (UA) Negative, Urine Ketones Negative, Urine Blood Negative, Urine Nitrate Negative, Urine Bilirubin Negative, Urine Urobilinogen 0.2, Ur Leukocyte Esterase Negative, Urine RBC None, Urine WBC None, Ur Squamous Epith Cells 3-5, Urine Bacteria Trace 02/21/24 13:30: SARS-CoV-2 (PCR) Not detected, Influenza A Untype (PCR) Not detected, Influenza Type B (PCR) Not detected 02/21/24 16:16: Troponin I < 0.01 Response Orders (Tests/Meds): ED MEDICATIONS Generic Name Dose Route Start Last Admin Trade Name Freq PRN Reason Stop Dose Admin Sodium Chloride 10 ml 02/21/24 13:44 Sodium Chloride 0.9% 10ml Syr (Rad Only) IV 03/22/24 13:43 NEEDED PRN Maintain IV Site Discontinued Medications Generic Name Dose Route Start Last Admin Trade Name Freq PRN Reason Stop Dose Admin Acetaminophen 1,000 mg 02/21/24 15:33 02/21/24 16:17 Acetaminophen 1,000mg/100ml Vial IV 02/21/24 15:34 1,000 mg ONCE ONE Administration Lactated Ringer's 1,000 mls @ 999 mls/hr 02/21/24 15:33 02/21/24 15:58 Lactated Ringer's 1000 Ml Bag IV 02/21/24 16:33 999 mls/hr .Q1H1M ONE Administration Iopamidol 200 ml 02/21/24 13:44 02/21/24 13:47 Iopamidol-370 (76%);100ml Bottle IV 02/21/24 13:45 200 ml ONCE ONE Administration Iopamidol 75 ml 02/21/24 15:51 02/21/24 15:52 Iopamidol-370 (76%);100ml Bottle IV 02/21/24 15:52 75 ml ONCE ONE Administration Ketorolac Tromethamine 15 mg 02/21/24 15:33 02/21/24 15:57 Ketorolac 30mg/Ml Vial IV 02/21/24 15:34 15 mg ONCE ONE Administration Sodium Chloride 100 ml 02/21/24 13:44 02/21/24 13:46 0.9 % Sodium Chloride 50 Ml Vial IV 02/21/24 13:45 100 ml ONCE ONE Administration ORDERS Category Date Time Status CT abdomen pelvis w con Stat Cat Scan 02/21/24 15:[address] angio chest - dissection Stat Cat Scan 02/21/24 13:[address] angio head Stat Cat Scan 02/21/24 13:[address] angio neck Stat Cat Scan 02/21/24 13:[address] head/brain wo con Stat Cat Scan 02/21/24 13:19 Taken Activated Partial Thrombo Time Stat Lab 02/21/24 13:10 Completed Complete Blood Count Auto Diff Stat Lab 02/21/24 13:10 Completed Comprehensive Metabolic Panel Stat Lab 02/21/24 13:10 Completed Magnesium Stat Lab 02/21/24 13:10 Completed Prothrombin Time INR Stat Lab 02/21/24 13:10 Completed Rapid PCR Covid and Flu A/B Stat Lab 02/21/24 13:30 Completed T4 (Thyroxine) Stat Lab 02/21/24 13:10 Completed Thyroid Stimulating Hormone Stat Lab 02/21/24 13:10 Completed Troponin I Q3H Lab 02/21/24 16:16 Completed Troponin I Q3H Lab 02/21/24 19:30 Ordered Troponin I Stat Lab 02/21/24 13:10 Completed UA [Urinalysis and Microscopic] Stat Lab 02/21/24 13:25 Completed Venous Blood Gas Stat RT 02/21/24 13:19 Completed MDM Narrative Medical Decision Narrative: In summary, this patient is a 48-year-old female presenting to the Emergency Department for evaluation of multiple complaints including tunnel vision, speech difficulty, palpitations, and high blood pressure and heart rate readings at home. Differential diagnoses considered include but are not limited to CVA, intracranial hemorrhage, hypertensive emergency, complex migraine, ACS, dysrhythmia, aortic dissection, anxiety. Ruling out the most morbid conditions drove assessment. It should be noted patient's history includes CAD, diabetes, hypertension, hyperlipidemia and anxiety which may or may not be at goal therapy. This complicates all aspects of care by increasing patient's risk for morbidity. I reviewed patient's past medical records and noted multiple previous ED evaluations with concern for similar issues and multiple previous workups for chest pain. On exam, the patient is extremely anxious appearing and jittery. Her blood pressure is high on initial assessment with systolics in the 180s, however heart rate is reassuring. She has not had any show scale of 1 for subjective decrease in sensation on the left side of the body, including the face. Otherwise, she is neurologically intact with no focal deficit. She presents outside of the tPA window, as symptoms were present when she woke up this morning and she went to bed last night around 11:30 PM. She is already medically managed on aspirin, Plavix, and statin. Cardiopulmonary exam is reassuring. EKG was obtained and is reassing as well. Patient also then began to complain that she has had mild headache, cough since this morning. Workup included CBC, CMP, troponin, TSH, T4, magnesium, PT, PTT, EKG, viral swab, urinalysis, CT stroke protocols, and CTA of the chest. Will continue to monitor the patient's vital signs on cardiac telemetry, including her blood pressure. On multiple subsequent reassessments, the patient has had improvement in her vital signs with normal heart rate and normal blood pressure with systolics in the 120s over 90s on my last assessment. She states her neurologic symptoms have resolved, and she is no longer having tunnel vision, balance issues, or speech disturbance. She also is less anxious appearing on exam. She does now complain of severe right lower quadrant abdominal pain that she feels may be a kidney stone. I did obtain a urinalysis, which does not demonstrate any bladder concerns for infection, so I feel kidney stone is unlikely. She does still have her appendix and ovaries. Unfortunately, we have already scanned her and given her contrast bolus for scans of her head, neck, and chest. I did not have any indication to scan her abdomen and pelvis at that time, however after shared decision-making, patient would like to proceed with obtaining a CT scan of her abdomen and pelvis despite the fact that it would be another dose of radiation and contrast. Will give her IV fluids to medicate. For her significant pain, she was given IV Toradol and acetaminophen. Labs thus far have demonstrated negative initial troponin and no other acutely concerning abnormalities. Viral swabs are negative. Patient care was signed out to the oncoming provider, Dr. Jiang. Blaine Jiang: Workup reviewed by me, hematologic labs are nonactionable. Compensated acid-base status. Initial troponin below detectable limit. Urinalysis interpreted by me and not consistent with infection, viral swab negative. CT imaging of the abdomen pelvis shows a 2.2 cm cyst on the left ovary, no free fluid, no acute pathology in the right lower quadrant. Patient does not have pain in the left and is not large enough to cause concern for torsion therefore further diagnostic imaging was considered but will be deferred CTA head no acute process, Noncon CT head no acute process, CTA neck no acute process, CTA chest shows no acute process, no evidence of dissection or pulmonary embolism. Upon repeat evaluation patient remained hemodynamically stable and was well-appearing at bedside and is appropriate for outpatient management at this time. Patient will follow-up for surveillance of her cyst as well as follow-up with cardiology for blood pressure.
--- NOTE | 2024-02-21 13:25 | ECG_ITS ---
APPROVED REPORT Exam: Resting ECG HR:63 bpm ECG Measurements Heart Rate 63 AXES OR 148 P 61 QRSd 78 QRS 7 QT 424 T 38 QTc 431 Conclusion SINUS RHYTHM LOW QRS VOLTAGE IN PRECORDIAL LEADS [QRS DEFLECTION < 1.0 mV IN CHEST LEADS] BORDERLINE ECG Electronically signed by : NALDO HERNANDES, 02/21/2024 23:36:44
[2024-02-21 13:27] LABS: Basophils % 0.4 % (0.1-2.0); Eosinophils # 0.1 K/mm3 (0.0-0.4); Eosinophils % 1.8 % (0.1-12.0); Hemoglobin 14.4 g/dL (12.2-16.2); Lymphocytes # 2.4 K/mm3 (0.7-4.5); Lymphocytes % 41.1 % (10-50); Mean Corpuscular HGB Conc 32.7 g/dL (31.8-35.4); Mean Corpuscular Hemoglobin 31.3 pg (27.0-31.2); Mean Corpuscular Volume 95.5 fl (81-99); Mean Platelet Volume 7.6 fl (7.4-10.4); Monocytes # 0.4 K/mm3 (0.1-1.0); Monocytes % 7.1 % (1.7-9.3); Neutrophils # 2.9 K/mm3 (1.8-7.8); Neutrophils % 49.5 % (37.0-80.0); Platelet Count 315 K/mm3 (142-424); Red Blood Count 4.61 M/mm3 (4.20-5.40); Red Cell Distribution Width 13.9 % (11.5-17.5); White Blood Count 5.8 K/mm3 (4.8-10.8)
[2024-02-21 13:34] LABS: Activated Partial Thrombo Time 27.6 seconds (22.8-30.6); INR 0.95 (0.9-1.1); Prothrombin Time 10.3 seconds (10.1-12.5)
[2024-02-21 13:37] LABS: Coronavirus 19, PCR Not Detected (NotDetected); Influenza A, PCR Not Detected (NotDetected); Influenza B, PCR Not Detected (NotDetected)
[2024-02-21 13:37] LABS: Microscopic, Urine URINE MICROSCOPIC (MICROSCOPIC)
[2024-02-21 13:38] LABS: Alanine Aminotransferase 39 U/L (12-78); Albumin Level 4.2 g/dl (3.5-5.0); Albumin/Globulin Ratio 1.6 (1.1-1.8); Alkaline Phosphatase 116 U/L (38-126); Anion Gap 9.6 mEq/L (5-15); Aspartate Amino Transferase 23 U/L (14-36); Bilirubin,Total 0.7 mg/dl (0.2-1.3); Blood Urea Nitrogen 16 mg/dl (7-17); Calcium 9.5 mg/dl (8.4-10.2); Carbon Dioxide 26 mmol/L (22.0-30.0); Chloride 106 mmol/L (98-107); Creatinine Clearance Estimated 3 mL/min (50-200); Estimated Glomerular Filt Rate 89 ml/min (>60); GFR (African American) 108 ML/MIN (>60); Globulin 2.7 g/dL (1.3-3.2); Glucose 115 mg/dl (74-100); Magnesium 2.1 mg/dl (1.6-2.3); Potassium 4.6 mmoL/L (3.5-5.1); Sodium 137 mmol/L (136-145); Total Protein,Serum 6.9 g/dl (6.3-8.2)
[2024-02-21 13:38] LABS: VBG Base Excess 0.6 mmol/L (-2.4-2.3); VBG HCO3 25.4 mmol/L (23-30); VBG Oxygen Saturation 79.8 % (50-70); VBG PCO2 41.6 mmol/L (35-51); VBG PO2 43.1 mmol/L (28-40); VBG Total CO2 26.6 mmol/L (23-27)
[2024-02-21 13:40] LABS: Lactate Venous 2.1 mmol/L (0.4-2.0)
[2024-02-21] MEDS: 0.9 % SODIUM CHLORIDE 50 ML VIAL 100 ML IV (13:46)
[2024-02-21] MEDS: IOPAMIDOL-370 (76%);100ML BOTTLE 200 ML IV (13:47)
[2024-02-21 13:52] LABS: Troponin I < 0.01 ng/ml (0.00-0.034)
[2024-02-21 13:54] LABS: T4 (Thyroxine) 8.5 ug/dl (5.53-11.0)
[2024-02-21 14:08] LABS: Thyroid Stimulating Hormone 0.88 uIU/mL (0.465-4.68)
[2024-02-21 14:09] LABS: Appearance,Urine CLEAR (Clear); Bilirubin,Urine Negative (Negative); Blood, Urine Negative (Negative); Color,Urine YELLOW (Yellow); Glucose,Urine (UA) Negative (Negative); Ketones,Urine Negative (Negative); Leukocyte Esterase,Urine Negative (Negative); Nitrate,Urine Negative (Negative); Protein,Urine Negative (Negative); Urobilinogen,Urine 0.2 EU/dl (0.2)
[2024-02-21 14:53] LABS: Bacteria,Urine Trace /lpf
--- NOTE | 2024-02-21 15:21 | CT_ITS ---
FINAL REPORT TECHNIQUE: Postcontrast axial images through the abdomen and pelvis were performed. This study was performed with techniques to keep radiation doses as low as reasonably achievable, (ALARA). Individualized dose reduction techniques using automated exposure control or adjustment of mA and/or kV according to the patient's size were employed. CLINICAL HISTORY: R groin pain FINDINGS: Abdomen: The lung bases are clear. There is moderate fatty infiltration of the liver. The gallbladder is present. The spleen is unremarkable. The adrenals are normal. The pancreas is unremarkable. The kidneys enhance appropriately. The aorta is normal in caliber. There is no free fluid. No findings for mechanical bowel obstruction are identified. Pelvis: The appendix is normal. Uterus is eccentric to the left. There is a cyst or follicle in the left ovary measuring 2.2 cm. The urinary bladder is unremarkable. No free fluid, free air, or abscess is identified. There are a few small inguinal lymph nodes. IMPRESSION: Cyst or follicle in the left ovary, may be physiologic. No significant mass or inflammatory reaction. Reviewed, Interpreted and Dictated by Ciro Shell MD Transcribed by Magdalena Castaneda Authenticated and . [facility]
--- NOTE | 2024-02-21 15:48 | HMH.ITSTN ---
PATIENT RECEIVED MAXED LIMIT OF CONTRAST ON CT SCANS. ER DOCTOR ORDERED MORE CT'S WITH CONTRAST AND OKAY AMOUNT.
[2024-02-21] MEDS: IOPAMIDOL-370 (76%);100ML BOTTLE 75 ML IV (15:52)
[2024-02-21] MEDS: KETOROLAC 30MG/ML VIAL 15 MG IV (15:57)
[2024-02-21] MEDS: LACTATED RINGERS 1000ML 1,000 ML 999 ML IV (15:58)
[2024-02-21] MEDS: ACETAMINOPHEN 1,000MG/100ML VIAL 1000 MG IV (16:17)
[2024-02-21 16:59] LABS: Troponin I < 0.01 ng/ml (0.00-0.034)
[2024-02-21 17:40] LABS: Reflex Lactic Add Lactic Reflex
== END 2024-02-21 17:13 | disposition home or self-care (01) ==
PROVIDERS: Emergency Medicine; Emergency Provider Emergency Medicine; PCP Nurse Practitioner
DX: R07.9 Chest pain, unspecified (principal); R10.31 Right lower quadrant pain; N83.209 Unspecified ovarian cyst, unspecified side; I10 Essential (primary) hypertension; R06.02 Shortness of breath; H53.8 Other visual disturbances; I25.10 Atherosclerotic heart disease of native coronary artery without angina pectoris; E78.5 Hyperlipidemia, unspecified; E11.9 Type 2 diabetes mellitus without complications; Z85.41 Personal history of malignant neoplasm of cervix uteri; Z85.43 Personal history of malignant neoplasm of ovary; Z87.891 Personal history of nicotine dependence; K21.9 Gastro-esophageal reflux disease without esophagitis
CPT/HCPCS: 70450; 70496; 70498; 71275; 74177; 80053; 81001; 82803; 83735; 84436; 84443; 84484; 85025; 85610; 85730; 87636; 93005; 96361; 96374; 96375; 99285; J0131; Q9967

== ENCOUNTER → 2024-02-28 09:54 | Outpatient (CLI) | payer OTHER, SELFPAY | LOC: SL 03-06 09:55 | PROVIDERS: Visit Provider Physician Assistant | DX: G47.30 Sleep apnea, unspecified (principal); R40.0 Somnolence; R94.30 Abnormal result of cardiovascular function study, unspecified | CPT/HCPCS: 95806 ==

== ENCOUNTER 2024-02-28 18:47 | Emergency (ER) | payer OTHER, SELFPAY ==
[2024-02-28 18:47] VITALS: BP 165/102; PULSE 72; RESP 18; TEMP 36.8; O2SAT 98; BMI 36.3
--- NOTE | 2024-02-28 18:48 | ECG_ITS ---
APPROVED REPORT Exam: Resting ECG HR:79 bpm ECG Measurements Heart Rate 79 AXES GA 140 P 52 QRSd 102 QRS 10 QT 394 T 23 QTc 428 Conclusion SINUS RHYTHM MINIMAL ST DEPRESSION [0.025+ mV ST DEPRESSION] Electronically signed by : ASMITA ASHLEY, 02/28/2024 21:02:20
--- NOTE | 2024-02-28 18:50 | HMH.EDCP ---
Discharge Plan Disposition Patient Disposition: Home, Self-Care Condition: Good Prescriptions Prescriptions: No Action diazepam 5 mg tablet 5 mg PO ONCE PRN (Reason: pre MRI) Qty: 2 0RF Rx Instructions: Bring diazepam to MRI, notify tech, take 1 tablet 30 minutes prior to MRI and if necessary, may repeat dose once. Max dose 2 tablets or 10 mg. 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 Cannot drive for 12 hours after dosing. hydralazine 25 mg tablet 25 mg PO TID PRN (Reason: htn) Qty: 90 2RF Rx Instructions: systolic > 170 valsartan 160 mg tablet 160 mg PO BID Qty: 60 2RF ondansetron HCl 4 mg tablet 4 mg PO PRN Emgality Pen 120 mg/mL pen injector 120 mg SQ QMONTH Qty: 1 2RF Rx Instructions: 1st injection to be administered in clinic for education/training/loading dose Ubrelvy 100 mg tablet 100 mg PO ONCE PRN (Reason: migraine) Qty: 10 2RF Rx Instructions: Take 1 tablet (100 mg) once at onset of migraine symptoms. May repeat after 2 hours if symptoms persist. Max dose 2 tabs in 24 hours nitroglycerin 0.4 mg tablet, sublingual 0.4 mg sublingual Q5-15M PRN (Reason: chest pain) Qty: 30 0RF Rx Instructions: do not exceed 3 doses per episode metoprolol succinate 100 mg tablet extended release 24 hr 100 mg PO DAILY Qty: 30 2RF hydrochlorothiazide 25 mg tablet 25 mg PO DAILY Qty: 30 2RF furosemide 40 mg Tablet 20 mg PO DAILY 30 Days Qty: 15 0RF potassium chloride [Klor-Con M20] 20 mEq Tablet,Er Particles/Crystals 20 meq PO BID 30 Days Qty: 60 0RF atorvastatin 80 mg tablet 80 mg PO DAILY clopidogrel 75 mg tablet 75 mg PO DAILY Patient Comments: TAKE 1 TABLET BY MOUTH EVERY DAY aspirin 81 mg tablet,delayed release (DR/EC) 81 mg PO DAILY ranolazine 500 mg tablet extended release 12 hr 500 mg PO BID Patient Comments: TAKE 1 TABLET BY MOUTH TWICE DAILY hydroxyzine pamoate 50 mg Capsule 50 mg PO TIDP PRN (Reason: Anxiety) buspirone 30 mg tablet 15 mg PO HS pantoprazole 40 mg Tablet,Delayed Release (Dr/Ec) 40 mg PO BID 30 Days Qty: 60 0RF Referrals Follow up/Referrals: Provider,Referral, MD [Referring] - See instructions Activity Restrictions/Add. Instructions Additional Instructions/Restrictions: Please call Dr. Reyes and to follow-up with him tomorrow. Low up with PCP as needed. Return to ER for any worsening or changing symptoms as needed. Clinical Impressions Clinical Impression: Chest pain, Headache, Hypertension, uncontrolled Discharge ED Provider: John Redding HPI <MARCELINO Head - Last Filed: 02/28/24 21:14> General Chief Complaint: Chest Pain Stated Complaint: Chest Pain Time Seen by Provider: 02/28/24 18:58 History of Present Illness HPI narrative: Patient presents for evaluation of headache and chest pain. Patient states the pain began last night and has increased throughout the day and her head with associated chest pain. Patient reports nausea but no vomiting diarrhea diaphoresis fever chills hemoptysis hematochezia melena hematemesis hematuria.. Patient does have a significant vascular history with previous stents and recently had a heart cath in November of this year and is followed by Dr. Reyes. Related Data Home Medications Medication Instructions Recorded Confirmed aspirin 81 mg tablet,delayed 81 mg PO DAILY Blood Thinner 12/14/23 02/04/24 release atorvastatin 80 mg tablet 80 mg PO DAILY Cholesterol 12/14/23 02/04/24 clopidogrel 75 mg tablet 75 mg PO DAILY Blood Thinner 12/14/23 02/04/24 hydroxyzine pamoate 50 mg capsule 50 mg PO TIDP PRN Anxiety 12/14/23 02/04/24 ranolazine 500 mg tablet,extended 500 mg PO BID Chest Pain 12/14/23 02/04/24 release,12 hr buspirone 30 mg tablet 15 mg PO HS Anxiety 12/15/23 02/04/24 ondansetron HCl 4 mg tablet 4 mg PO PRN 12/31/23 02/04/24 Previous Rx's Medication Instructions Recorded pantoprazole 40 mg tablet,delayed 40 mg PO BID Acid Reflux 30 days 12/17/23 release #60 tabs furosemide 40 mg tablet 20 mg (1/2 x 40 mg) PO DAILY 30 12/21/23 days #15 tabs potassium chloride 20 mEq 20 meq PO BID 30 days #60 tabs 12/21/23 tablet,extended release(part/cryst) (Klor-Con M) galcanezumab-gnlm 120 mg/mL 120 mg SQ QMONTH chronic migraine 12/31/23 subcutaneous pen injector #1 mL (Emgality Pen) ubrogepant 100 mg tablet (Ubrelvy) 100 mg PO ONCE PRN migraine #10 12/31/23 tabs diazepam 5 mg tablet 5 mg PO ONCE PRN pre MRI #2 tabs 01/17/24 metoprolol succinate 100 mg 100 mg PO DAILY #30 tabs 01/28/24 tablet,extended release 24 hr nitroglycerin 0.4 mg sublingual 0.4 mg sublingual Q5-15M PRN chest 01/28/24 tablet pain #30 tabs hydralazine 25 mg tablet 25 mg PO TID PRN htn #90 tabs 02/04/24 valsartan 160 mg tablet 160 mg PO BID #60 tabs 02/04/24 hydrochlorothiazide 25 mg tablet 25 mg PO DAILY #30 tabs 02/28/24 Allergies Allergy/AdvReac Type Severity Reaction Status Date / Time lisinopril Allergy Verified 02/04/24 14:54 oxycodone [From Percocet] Allergy Verified 02/04/24 14:54 Sulfa (Sulfonamide Allergy Verified 02/04/24 14:54 Antibiotics) [facility] <MARCELINO Head - Last Filed: 02/28/24 21:14> [facility] Disclaimer: The information contained in this section may have been updated after the patient was seen, as this information can be updated by other users. Medical History Carpal tunnel syndrome of left wrist GERD (gastroesophageal reflux disease) Hypoglycemia Cervical cancer Ovarian cancer Hypertension Surgical History History of cardiac cath H/O LEEP History of Family History Other Family history of diabetes mellitus type II Family history of hyperlipidemia Family history of hypertension Social History Smoking Status: Never smoker alcohol intake: never substance use type: denies use current occupational status: unemployed Travel in the last 8 weeks: None household members: significant other housing: house marital status: single <MARCELINO Head - Last Filed: 02/28/24 21:14> ROS Obtained: Yes Systems reviewed as appropriate & no additional complaints except as documented Physical Exam <MARCELINO Head - Last Filed: 02/28/24 21:14> General General appearance: alert and in no apparent distress Head Head exam: atraumatic and normal inspection Eye Eye exam: Present normal appearance, PERRL and EOMI ENT ENT exam: Present normal exam, normal oropharynx and mucous membranes moist Neck Neck exam: Present normal inspection and full ROM; Absent tenderness or lymphadenopathy Chest Chest inspection: Present normal inspection and symmetric chest wall rise Respiratory Respiratory exam: Present normal lung sounds bilaterally; Absent accessory muscle use Cardiovascular Cardiovascular exam: Present regular rate, normal rhythm, normal heart sounds, +S1 and +S2 Abdominal Exam Abdominal exam: Present soft and normal bowel sounds; Absent tenderness Extremities Exam Extremities exam: Present normal inspection and full ROM Back Exam Back exam: Present normal inspection and full ROM Neurological Exam Neurological exam: Present alert, oriented X3 and CN II-XII intact Psychiatric Psychiatric exam: Present normal affect and normal mood Skin Skin exam: Present warm, dry and normal color Lymphatic Lymphatic Findings: no adenopathy HEART Score <MARCELINO Head - Last Filed: 02/28/24 21:14> HEART Score HEART Score assessment performed?: Yes History (anamnesis): Slightly suspicious ECG: Normal Age: 45-65 years Risk factors: Atherosclerosis history Troponin: </= normal limit HEART Score: 3 <John Redding MD - Last Filed: 02/29/24 17:51> HEART Score HEART Score: 3 Critical Care <MARCELINO Head - Last Filed: 02/28/24 21:14> Critical Care Time Critical Care Time: No Medical Decision Making <MARCELINO Head - Last Filed: 02/28/24 21:14> Medical Records Medical records reviewed: Yes I reviewed the patient's medical records. Billy Inquiry Pt receiving controlled substance: No Vital Signs Vital Signs: 02/28/24 18:47 02/28/24 19:00 02/28/24 19:30 Temperature 98.2 F Temperature Source Oral Pulse Rate 78 70 Pulse Rate [Left Radial] 72 Respiratory Rate 18 14 16 Blood Pressure 165/102 H 152/94 H Blood Pressure [Right Arm] 165/102 H Blood Pressure Mean 129 120 Blood Pressure Mean [Right Arm] 123 Blood Pressure Source [Right Arm] Automatic Cuff Blood Pressure Position [Right Arm] Sitting 02 Sat by Pulse Oximetry 98 96 99 Oxygen Delivery Method Room Air 02/28/24 20:00 02/28/24 20:16 02/28/24 21:25 Temperature 98.2 F Temperature Source Oral Pulse Rate 72 73 73 Pulse Rate [Left Radial] Respiratory Rate 16 16 16 Blood Pressure 139/90 141/105 H 139/90 Blood Pressure [Right Arm] Blood Pressure Mean 116 121 Blood Pressure Mean [Right Arm] Blood Pressure Source [Right Arm] Blood Pressure Position [Right Arm] 02 Sat by Pulse Oximetry 99 100 Oxygen Delivery Method Room Air Lab Data Lab results reviewed: Yes I reviewed the patient's lab results. Labs: Lab Results 02/28/24 19:20: WBC 8.8, RBC 4.64, Hgb 14.5, Hct 44.1, MCV 95.1, MCH 31.2, MCHC 32.8, RDW 14.1, Plt Count 365, MPV 8.1, Neut % (Auto) 57.0, Lymph % (Auto) 34.5, Mcminn % (Auto) 5.9, Eos % (Auto) 1.3, Baso % (Auto) 1.4, Neut # (Auto) 5.0, Lymph # (Auto) 3.0, Mcminn # (Auto) 0.5, Eos # (Auto) 0.1, Baso # (Auto) 0.1, PT 10.5, INR 0.97, D-Dimer 0.37, Sodium 139, Potassium 4.0, Chloride 104, Carbon Dioxide 27, Anion Gap 12.0, BUN 13, Creatinine 0.80, Estimated Creat Clear 111, Estimated GFR 77, Est GFR ( Amer) 93, Glucose 110 H, Calcium 9.5, Magnesium 2.2, Total Bilirubin 0.4, AST 28, ALT 45, Alkaline Phosphatase 126, Troponin I < 0.01, NT-Pro-B Natriuret Pep 47.9, Total Protein 7.3, Albumin 4.3, Globulin 3.0, Albumin/Globulin Ratio 1.4 02/28/24 19:23: SARS-CoV-2 (PCR) Not detected, Influenza A Untype (PCR) Not detected, Influenza Type B (PCR) Not detected 02/28/24 19:20 02/28/24 19:20 Response Orders (Tests/Meds): ED MEDICATIONS Discontinued Medications Generic Name Dose Route Start Last Admin Trade Name Corey PRN Reason Stop Dose Admin Acetaminophen 1,000 mg 02/28/24 18:56 02/28/24 19:25 Acetaminophen 1,000mg/100ml Vial IV 02/28/24 18:57 1,000 mg ONCE ONE Administration Dexamethasone Sodium Phosphate 10 mg 02/28/24 19:56 02/28/24 20:08 Dexamethasone 4mg/Ml 1ml Vial IV 02/28/24 19:57 10 mg ONCE ONE Administration Diphenhydramine HCl 50 mg 02/28/24 19:56 02/28/24 20:09 Diphenhydramine 50mg/Ml Vial IV 02/28/24 19:57 50 mg ONCE ONE Administration Ketorolac Tromethamine 15 mg 02/28/24 18:56 02/28/24 19:25 Ketorolac 30mg/Ml Vial IV 02/28/24 18:57 15 mg ONCE ONE Administration Prochlorperazine Edisylate 10 mg 02/28/24 19:56 02/28/24 20:09 Prochlorperazine 10mg/2ml Vial IV 02/28/24 19:57 10 mg ONCE ONE Administration ORDERS Category Date Time Status BNP [NT Pro Brain Natriuretic Pep.] Stat Lab 02/28/24 19:20 Completed CBC w/Auto Diff [Complete Blood Count Auto Diff] Stat Lab 02/28/24 19:20 Completed CMP [Comprehensive Metabolic Panel] Stat Lab 02/28/24 19:20 Completed D-Dimer Stat Lab 02/28/24 19:20 Completed INR [Prothrombin Time INR] Stat Lab 02/28/24 19:20 Completed Magnesium Stat Lab 02/28/24 19:20 Completed Rapid PCR Covid and Flu A/B Stat Lab 02/28/24 19:23 Completed Trop I [Troponin I] Stat Lab 02/28/24 19:20 Completed MDM Narrative Medical Decision Narrative: In summary patient is a 48-year-old female who presents to the emergency department for evaluation of headache chest pain and elevated blood pressure. Patient is hypertensive satting at 98% with a respiratory rate of 18 upon arrival, and afebrile. Physical exam is remarkable for tenderness of palpation of the cranial musculature but not of the cervical spine. The remainder of her physical exam is nonfocal and unremarkable.. Differential diagnosis includes microvascular disease versus uncontrolled hypertension versus ACS versus stroke versus PE etc. Initial workup will be conducted with hematologic labs COVID and flu swabs plain film chest x-ray twelve-lead EKG. Initial interventions include Toradol Tylenol fluid bolus. Initial workup reviewed by me shows that her hematologic labs are nonactionable including a undetectable troponin. Upon repeat evaluation patient has significant improvement in her headache and chest pain. The patient was placed in observation status at 1930. Medical necessity for observational status is serial troponins. The patient was provided serial reevaluations and cardiac monitoring while awaiting results. Showed that her troponin is still undetectable. Patient has no more chest pain and no more headache.. Total time in observation was now 105 minutes. EKG independently interpreted. Ventricular rate 79 beats a minute no ST or T wave changes concerning for acute ischemia. MS, QRS, QT intervals with in normal limits. Given this appropriate for discharge home with close follow-up with her both her PCP and Dr. Reyes. Patient verbalized understanding and agreement. <John Redding MD - Last Filed: 02/29/24 17:51> Vital Signs Vital Signs: 02/28/24 18:47 02/28/24 19:00 02/28/24 19:30 Temperature 98.2 F Temperature Source Oral Pulse Rate 78 70 Pulse Rate [Left Radial] 72 Respiratory Rate 18 14 16 Blood Pressure 165/102 H 152/94 H Blood Pressure [Right Arm] 165/102 H Blood Pressure Mean 129 120 Blood Pressure Mean [Right Arm] 123 Blood Pressure Source [Right Arm] Automatic Cuff Blood Pressure Position [Right Arm] Sitting 02 Sat by Pulse Oximetry 98 96 99 Oxygen Delivery Method Room Air 02/28/24 20:00 02/28/24 20:16 02/28/24 21:25 Temperature 98.2 F Temperature Source Oral Pulse Rate 72 73 73 Pulse Rate [Left Radial] Respiratory Rate 16 16 16 Blood Pressure 139/90 141/105 H 139/90 Blood Pressure [Right Arm] Blood Pressure Mean 116 121 Blood Pressure Mean [Right Arm] Blood Pressure Source [Right Arm] Blood Pressure Position [Right Arm] 02 Sat by Pulse Oximetry 99 100 Oxygen Delivery Method Room Air Lab Data Labs: Lab Results 02/28/24 19:20: WBC 8.8, RBC 4.64, Hgb 14.5, Hct 44.1, MCV 95.1, MCH 31.2, MCHC 32.8, RDW 14.1, Plt Count 365, MPV 8.1, Neut % (Auto) 57.0, Lymph % (Auto) 34.5, Mcminn % (Auto) 5.9, Eos % (Auto) 1.3, Baso % (Auto) 1.4, Neut # (Auto) 5.0, Lymph # (Auto) 3.0, Mcminn # (Auto) 0.5, Eos # (Auto) 0.1, Baso # (Auto) 0.1, PT 10.5, INR 0.97, D-Dimer 0.37, Sodium 139, Potassium 4.0, Chloride 104, Carbon Dioxide 27, Anion Gap 12.0, BUN 13, Creatinine 0.80, Estimated Creat Clear 111, Estimated GFR 77, Est GFR ( Amer) 93, Glucose 110 H, Calcium 9.5, Magnesium 2.2, Total Bilirubin 0.4, AST 28, ALT 45, Alkaline Phosphatase 126, Troponin I < 0.01, NT-Pro-B Natriuret Pep 47.9, Total Protein 7.3, Albumin 4.3, Globulin 3.0, Albumin/Globulin Ratio 1.4 02/28/24 19:23: SARS-CoV-2 (PCR) Not detected, Influenza A Untype (PCR) Not detected, Influenza Type B (PCR) Not detected Response Orders (Tests/Meds): ED MEDICATIONS Discontinued Medications Generic Name Dose Route Start Last Admin Trade Name Freq PRN Reason Stop Dose Admin Acetaminophen 1,000 mg 02/28/24 18:56 02/28/24 19:25 Acetaminophen 1,000mg/100ml Vial IV 02/28/24 18:57 1,000 mg ONCE ONE Administration Dexamethasone Sodium Phosphate 10 mg 02/28/24 19:56 02/28/24 20:08 Dexamethasone 4mg/Ml 1ml Vial IV 02/28/24 19:57 10 mg ONCE ONE Administration Diphenhydramine HCl 50 mg 02/28/24 19:56 02/28/24 20:09 Diphenhydramine 50mg/Ml Vial IV 02/28/24 19:57 50 mg ONCE ONE Administration Ketorolac Tromethamine 15 mg 02/28/24 18:56 02/28/24 19:25 Ketorolac 30mg/Ml Vial IV 02/28/24 18:57 15 mg ONCE ONE Administration Prochlorperazine Edisylate 10 mg 02/28/24 19:56 02/28/24 20:09 Prochlorperazine 10mg/2ml Vial IV 02/28/24 19:57 10 mg ONCE ONE Administration ORDERS Category Date Time Status BNP [NT Pro Brain Natriuretic Pep.] Stat Lab 02/28/24 19:20 Completed CBC w/Auto Diff [Complete Blood Count Auto Diff] Stat Lab 02/28/24 19:20 Completed CMP [Comprehensive Metabolic Panel] Stat Lab 02/28/24 19:20 Completed D-Dimer Stat Lab 02/28/24 19:20 Completed INR [Prothrombin Time INR] Stat Lab 02/28/24 19:20 Completed Magnesium Stat Lab 02/28/24 19:20 Completed Rapid PCR Covid and Flu A/B Stat Lab 02/28/24 19:23 Completed Trop I [Troponin I] Stat Lab 02/28/24 19:20 Completed MDM Narrative Medical Decision Narrative: In summary patient is a 48-year-old female who presents to the emergency department for evaluation of headache chest pain and elevated blood pressure. Patient is hypertensive satting at 98% with a respiratory rate of 18 upon arrival, and afebrile. Physical exam is remarkable for tenderness of palpation of the cranial musculature but not of the cervical spine. The remainder of her physical exam is nonfocal and unremarkable.. Differential diagnosis includes microvascular disease versus uncontrolled hypertension versus ACS versus stroke versus PE etc. Initial workup will be conducted with hematologic labs COVID and flu swabs plain film chest x-ray twelve-lead EKG. Initial interventions include Toradol Tylenol fluid bolus. Initial workup reviewed by me shows that her hematologic labs are nonactionable including a undetectable troponin. Upon repeat evaluation patient has significant improvement in her headache and chest pain. The patient was placed in observation status at 1930. Medical necessity for observational status is serial troponins. The patient was provided serial reevaluations and cardiac monitoring while awaiting results. Showed that her troponin is still undetectable. Patient has no more chest pain and no more headache.. Total time in observation was now 105 minutes. EKG independently interpreted. Ventricular rate 79 beats a minute no ST or T wave changes concerning for acute ischemia. MS, QRS, QT intervals with in normal limits. Given this appropriate for discharge home with close follow-up with her both her PCP and Dr. Reyes. Patient verbalized understanding and agreement. I was consulted by the FLASH, and we discussed the complexity of the problems being addressed. I approved the treatment and management plan for this patient?s care in the Emergency Department, thus performing a substantive portion of the medical decision making. John Redding MD
[2024-02-28 19:00] VITALS: BP 165/102; PULSE 78; RESP 14; O2SAT 96
[2024-02-28] MEDS: ACETAMINOPHEN 1,000MG/100ML VIAL 1000 MG IV (19:25)
[2024-02-28] MEDS: KETOROLAC 30MG/ML VIAL 15 MG IV (19:25)
[2024-02-28 19:30] VITALS: BP 152/94; PULSE 70; RESP 16; O2SAT 99
[2024-02-28 19:31] LABS: Basophils # 0.1 K/mm3 (0-0.2); Basophils % 1.4 % (0.1-2.0); Eosinophils # 0.1 K/mm3 (0.0-0.4); Eosinophils % 1.3 % (0.1-12.0); Hematocrit 44.1 % (37.0-47.0); Hemoglobin 14.5 g/dL (12.2-16.2); Lymphocytes % 34.5 % (10-50); Mean Corpuscular HGB Conc 32.8 g/dL (31.8-35.4); Mean Corpuscular Hemoglobin 31.2 pg (27.0-31.2); Mean Corpuscular Volume 95.1 fl (81-99); Mean Platelet Volume 8.1 fl (7.4-10.4); Monocytes # 0.5 K/mm3 (0.1-1.0); Monocytes % 5.9 % (1.7-9.3); Platelet Count 365 K/mm3 (142-424); Red Blood Count 4.64 M/mm3 (4.20-5.40); Red Cell Distribution Width 14.1 % (11.5-17.5); White Blood Count 8.8 K/mm3 (4.8-10.8)
[2024-02-28 19:31] LABS: Coronavirus 19, PCR Not Detected (NotDetected); Influenza A, PCR Not Detected (NotDetected); Influenza B, PCR Not Detected (NotDetected)
[2024-02-28 19:41] LABS: INR 0.97 (0.9-1.1); Prothrombin Time 10.5 seconds (10.1-12.5)
[2024-02-28 19:43] LABS: Alanine Aminotransferase 45 U/L (12-78); Albumin Level 4.3 g/dl (3.5-5.0); Albumin/Globulin Ratio 1.4 (1.1-1.8); Alkaline Phosphatase 126 U/L (38-126); Aspartate Amino Transferase 28 U/L (14-36); Bilirubin,Total 0.4 mg/dl (0.2-1.3); Blood Urea Nitrogen 13 mg/dl (7-17); Calcium 9.5 mg/dl (8.4-10.2); Carbon Dioxide 27 mmol/L (22.0-30.0); Chloride 104 mmol/L (98-107); Creatinine Clearance Estimated 111 mL/min (50-200); Estimated Glomerular Filt Rate 77 ml/min (>60); GFR (African American) 93 ML/MIN (>60); Glucose 110 mg/dl (74-100); Magnesium 2.2 mg/dl (1.6-2.3); Sodium 139 mmol/L (136-145); Total Protein,Serum 7.3 g/dl (6.3-8.2)
[2024-02-28 19:47] LABS: D-Dimer 0.37 ug/mL (0.0-0.5)
[2024-02-28 19:57] LABS: NT Pro Brain Natriuretic Pep. 47.9 pg/mL (0-125)
[2024-02-28 19:59] LABS: Troponin I < 0.01 ng/ml (0.00-0.034)
[2024-02-28 20:00] VITALS: BP 139/90; PULSE 72; RESP 16; O2SAT 99
[2024-02-28] MEDS: DEXAMETHASONE 4MG/ML 1ML VIAL 10 MG IV (20:08)
[2024-02-28] MEDS: PROCHLORPERAZINE 10MG/2ML VIAL 10 MG IV (20:09)
[2024-02-28] MEDS: diphenhydrAMINE 50MG/ML VIAL 50 MG IV (20:09)
[2024-02-28 20:16] VITALS: BP 141/105; PULSE 73; RESP 16; O2SAT 100
[2024-02-28 21:25] VITALS: BP 139/90; PULSE 73; RESP 16; TEMP 36.8; O2SAT 100
== END 2024-02-28 21:26 | disposition home or self-care (01) ==
PROVIDERS: Physician Assistant; Emergency Provider Emergency Medicine; PCP Physician Assistant
DX: R07.9 Chest pain, unspecified (principal); R51.9 Headache, unspecified; I11.9 Hypertensive heart disease without heart failure; I25.10 Atherosclerotic heart disease of native coronary artery without angina pectoris; K21.9 Gastro-esophageal reflux disease without esophagitis
CPT/HCPCS: 36415; 80053; 83735; 83880; 84484; 85025; 85378; 85610; 87636; 93005; 96374; 96375; 99284; J0131

== ENCOUNTER 2024-03-03 12:08 | Outpatient (CLI) | payer OTHER, SELFPAY ==
[2024-03-03 12:59] LABS: Magnesium 2.3 mg/dl (1.6-2.3)
[2024-03-04 12:12] LABS: Rapid Plasma Reagin Ab Titer Non Reactive titer (NonRea<1:1)
[2024-03-06 08:40] LABS: Antinuclear Antibodies (ANA) Negative
[2024-03-07 07:24] LABS: Metanephrine Plasma 31.4 pg/mL (0.0-88.0); Normetanephrine Plasma 81.4 pg/mL (0.0-218.9)
[2024-03-07 10:51] LABS: Dopamine, Plasma < 30 pg/mL (0-48); Epinephrine, Plasma 56 pg/mL (0-62); Norepinephrine, Plasma 711 pg/mL (0-874)
[2024-03-14 08:15] LABS: Renin 0.766
== END 2024-03-03 23:59 | disposition home or self-care (01) ==
LOC: LAB 12:08
PROVIDERS: Nurse Practitioner Family; PCP Nurse Practitioner; Visit Provider Physician Assistant
DX: G43.109 Migraine with aura, not intractable, without status migrainosus (principal); R41.89 Other symptoms and signs involving cognitive functions and awareness; R06.09 Other forms of dyspnea; R07.89 Other chest pain; I25.110 Atherosclerotic heart disease of native coronary artery with unstable angina pectoris; I10 Essential (primary) hypertension; E78.5 Hyperlipidemia, unspecified; K21.9 Gastro-esophageal reflux disease without esophagitis; G89.29 Other chronic pain; R06.83 Snoring; G47.19 Other hypersomnia; E66.9 Obesity, unspecified; Z68.36 Body mass index [BMI] 36.0-36.9, adult; Z82.49 Family history of ischemic heart disease and other diseases of the circulatory system; Z95.5 Presence of coronary angioplasty implant and graft; Z85.9 Personal history of malignant neoplasm, unspecified
CPT/HCPCS: 36415; 82088; 82384; 82746; 83735; 83835; 84244; 86038; 86225; 86235; 86593

== ENCOUNTER 2024-03-05 14:45 | Outpatient (CLI) | payer OTHER, SELFPAY ==
[2024-03-11 03:59] LABS: Dopamine, Ur, 24hr 100 ug/24 hr (0-510); Dopamine, Urine 59 ug/L (Undefined); Epinephrine, U, 24hr <5 ug/24 hr (0-20); Epinephrine, Urine <3 ug/L (Undefined); Norepinephrine, Ur 29 ug/L (Undefined); Norepinephrine,U,24h 49 ug/24 hr (0-135); VMA, Urine 1.7 mg/L (Undefined); VMA, Urine, 24hr 2.9 mg/24 hr (0.0-7.5)
[2024-03-11 22:23] LABS: Metanephrine, U,24hr 54 ug/24 hr (36-209); Metanephrine, Ur 32 ug/L (Undefined); Normetanephr.,U,24h 304 ug/24 hr (131-612); Normetanephrine, Ur 179 ug/L (Undefined)
== END 2024-03-05 23:59 | disposition home or self-care (01) ==
LOC: LAB.DROPOF 14:46
PROVIDERS: PCP Nurse Practitioner; Visit Provider Physician Assistant
DX: R07.89 Other chest pain (principal); R06.09 Other forms of dyspnea; I25.110 Atherosclerotic heart disease of native coronary artery with unstable angina pectoris; E78.5 Hyperlipidemia, unspecified; I10 Essential (primary) hypertension; K21.9 Gastro-esophageal reflux disease without esophagitis; E66.9 Obesity, unspecified; Z68.36 Body mass index [BMI] 36.0-36.9, adult; Z95.5 Presence of coronary angioplasty implant and graft
CPT/HCPCS: 82384; 83835; 84585

== ENCOUNTER 2024-03-11 08:05 | Outpatient (CLI) | payer OTHER, SELFPAY ==
--- NOTE | 2024-03-11 08:11 | US_ITS ---
FINAL REPORT TECHNIQUE: Ultrasound images of the kidneys were obtained. CLINICAL HISTORY: R07.89 - Other chest pain, htn COMPARISON: None FINDINGS: The right kidney measures 9.8 cm in length. It is normal in echogenicity. There is no hydronephrosis. The left kidney measures 10.9 cm in length. It is normal in echogenicity. There is no hydronephrosis. IMPRESSION: Unremarkable renal ultrasound. Reviewed, Interpreted and Dictated by Ciro Shell MD Transcribed by Germania Mcghee Authenticated and . [facility]
--- NOTE | 2024-03-11 08:49 | CA_ITS ---
FINAL REPORT TECHNIQUE: Grayscale, color Doppler and duplex Doppler ultrasound of the kidneys, aorta and renal arteries was performed. Multiple velocities were measured. CLINICAL HISTORY: HTN COMPARISON: None FINDINGS: Aorta velocity: 62 cm/sec Right kidney: 11.3 cm. No evidence of hydronephrosis or mass. Right intrarenal RI: 0.59-0.65 Right renal artery velocity: 145 cm/sec. Right RAR (Renal artery-Aortic Ratio): 2.35 Left Kidney: 10.3 cm. No evidence of hydronephrosis or mass. Left intrarenal RI: 0.55-0.61 Left renal artery velocity: 186 cm/sec. Left RAR (Renal Artery-Aortic Ratio): 3.01 IMPRESSION: Greater than 60% left renal artery stenosis of the origin left renal artery. Consider CT angiogram or postcontrast MR angiogram for further evaluation. Less than 60% right renal artery stenosis. Reviewed, Interpreted and Dictated by Ciro Shell MD Transcribed by Germania Mcghee Authenticated and . [facility]
== END 2024-03-11 23:59 | disposition home or self-care (01) ==
LOC: RAD 08:06
PROVIDERS: PCP Nurse Practitioner; Visit Provider Physician Assistant
DX: I25.110 Atherosclerotic heart disease of native coronary artery with unstable angina pectoris (principal); R07.89 Other chest pain; R06.09 Other forms of dyspnea; E78.5 Hyperlipidemia, unspecified; Z95.5 Presence of coronary angioplasty implant and graft; E66.9 Obesity, unspecified; I10 Essential (primary) hypertension; K21.9 Gastro-esophageal reflux disease without esophagitis
CPT/HCPCS: 76770; 93976

== ENCOUNTER 2024-03-19 12:55 | Emergency (ER) | payer OTHER, SELFPAY ==
[2024-03-19 13:05] VITALS: BP 146/77; PULSE 69; RESP 18; TEMP 36.4; O2SAT 95; BMI 36.1
--- NOTE | 2024-03-19 13:10 | ED_ITS ---
Discharge Plan Disposition Patient Disposition: Still a Patient Condition: Fair Prescriptions Prescriptions: No Action diazepam 5 mg tablet 5 mg PO ONCE PRN (Reason: pre MRI) Qty: 2 0RF Rx Instructions: Bring diazepam to MRI, notify tech, take 1 tablet 30 minutes prior to MRI and if necessary, may repeat dose once. Max dose 2 tablets or 10 mg. 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 Cannot drive for 12 hours after dosing. hydralazine 25 mg tablet 25 mg PO TID PRN (Reason: htn) Qty: 90 2RF Rx Instructions: systolic > 170 ondansetron HCl 4 mg tablet 4 mg PO PRN Emgality Pen 120 mg/mL pen injector 120 mg SQ QMONTH Qty: 1 2RF Rx Instructions: 1st injection to be administered in clinic for education/training/loading dose Ubrelvy 100 mg tablet 100 mg PO ONCE PRN (Reason: migraine) Qty: 10 2RF Rx Instructions: Take 1 tablet (100 mg) once at onset of migraine symptoms. May repeat after 2 hours if symptoms persist. Max dose 2 tabs in 24 hours nitroglycerin 0.4 mg tablet, sublingual 0.4 mg sublingual Q5-15M PRN (Reason: chest pain) Qty: 30 0RF Rx Instructions: do not exceed 3 doses per episode metoprolol succinate 100 mg tablet extended release 24 hr 100 mg PO DAILY Qty: 30 2RF hydrochlorothiazide 25 mg tablet 25 mg PO DAILY Qty: 30 2RF isosorbide mononitrate 60 mg tablet extended release 24 hr 60 mg PO DAILY Qty: 90 3RF furosemide 40 mg Tablet 20 mg PO DAILY 30 Days Qty: 15 0RF potassium chloride [Klor-Con M20] 20 mEq Tablet,Er Particles/Crystals 20 meq PO BID 30 Days Qty: 60 0RF atorvastatin 80 mg tablet 80 mg PO DAILY clopidogrel 75 mg tablet 75 mg PO DAILY Patient Comments: TAKE 1 TABLET BY MOUTH EVERY DAY aspirin 81 mg tablet,delayed release (DR/EC) 81 mg PO DAILY ranolazine 500 mg tablet extended release 12 hr 500 mg PO BID Patient Comments: TAKE 1 TABLET BY MOUTH TWICE DAILY hydroxyzine pamoate 50 mg Capsule 50 mg PO TIDP PRN (Reason: Anxiety) buspirone 30 mg tablet 15 mg PO HS pantoprazole 40 mg Tablet,Delayed Release (Dr/Ec) 40 mg PO BID 30 Days Qty: 60 0RF Referrals Follow up/Referrals: Laura Cobian APRN [Primary Care Provider] - See instructions Clinical Impressions Clinical Impression: Chest pain Discharge ED Provider: Sheldon Bruce [facility] [place] HPI General Stated complaint: pain in left abd, nausea Time Seen by Provider: 03/19/24 13:10 History of Present Illness Provider Complaint: She states that for the past 1 hour approximately she has had sharp epigastric pain that radiates to her left axilla. She has a history of CAD with placement of stent X1. She states that on her way here to the hospital she took 1 sublingual nitroglycerine and it did help her pain somewhat, but it did not completely relieve it. She has also had nausea. She denies shortness of breath. She also has a history of pancreatitis, but she states that she did not have this type of pain when she had that. Related Data Home Medications Medication Instructions Recorded Confirmed aspirin 81 mg tablet,delayed 81 mg PO DAILY Blood Thinner 12/14/23 03/18/24 release atorvastatin 80 mg tablet 80 mg PO DAILY Cholesterol 12/14/23 03/18/24 clopidogrel 75 mg tablet 75 mg PO DAILY Blood Thinner 12/14/23 03/18/24 hydroxyzine pamoate 50 mg capsule 50 mg PO TIDP PRN Anxiety 12/14/23 03/18/24 ranolazine 500 mg tablet,extended 500 mg PO BID Chest Pain 12/14/23 03/18/24 release,12 hr buspirone 30 mg tablet 15 mg PO HS Anxiety 12/15/23 03/18/24 ondansetron HCl 4 mg tablet 4 mg PO PRN 12/31/23 03/18/24 Previous Rx's Medication Instructions Recorded pantoprazole 40 mg tablet,delayed 40 mg PO BID Acid Reflux 30 days 12/17/23 release #60 tabs furosemide 40 mg tablet 20 mg (1/2 x 40 mg) PO DAILY 30 12/21/23 days #15 tabs potassium chloride 20 mEq 20 meq PO BID 30 days #60 tabs 12/21/23 tablet,extended release(part/cryst) (Klor-Con M) galcanezumab-gnlm 120 mg/mL 120 mg SQ QMONTH chronic migraine 12/31/23 subcutaneous pen injector #1 mL (Emgality Pen) ubrogepant 100 mg tablet (Ubrelvy) 100 mg PO ONCE PRN migraine #10 12/31/23 tabs diazepam 5 mg tablet 5 mg PO ONCE PRN pre MRI #2 tabs 01/17/24 metoprolol succinate 100 mg 100 mg PO DAILY #30 tabs 01/28/24 tablet,extended release 24 hr nitroglycerin 0.4 mg sublingual 0.4 mg sublingual Q5-15M PRN chest 01/28/24 tablet pain #30 tabs hydralazine 25 mg tablet 25 mg PO TID PRN htn #90 tabs 02/04/24 hydrochlorothiazide 25 mg tablet 25 mg PO DAILY #30 tabs 02/28/24 isosorbide mononitrate 60 mg 60 mg PO DAILY #90 tabs 03/18/24 tablet,extended release 24 hr Allergies Allergy/AdvReac Type Severity Reaction Status Date / Time lisinopril Allergy Verified 03/19/24 13:33 oxycodone [From Percocet] Allergy Verified 03/19/24 13:33 Sulfa (Sulfonamide Allergy Verified 03/19/24 13:33 Antibiotics) [facility] Disclaimer: The information contained in this section may have been updated after the patient was seen, as this information can be updated by other users. Medical History Carpal tunnel syndrome of left wrist GERD (gastroesophageal reflux disease) Hypoglycemia Cervical cancer HISTORY OF Ovarian cancer HISTORY OF Hypertension Surgical History History of cardiac cath H/O LEEP History of Family History Other Family history of diabetes mellitus type II Family history of hyperlipidemia Family history of hypertension Social History Smoking Status: Never smoker alcohol intake: never substance use type: denies use current occupational status: unemployed Travel in the last 8 weeks: None household members: significant other housing: house marital status: single ROS Obtained: Yes All systems reviewed & no additional complaints except as documented Constitutional Constitutional: Denies chills and Denies fever(s) Eyes Eyes: Denies eye discharge ENT Ears, Nose, Mouth, and Throat: Denies dizziness, Denies otalgia and Denies sore throat Cardiovascular Cardiovascular: Reports as per HPI and Reports chest pain Respiratory Respiratory: Denies shortness of breath, Denies chest congestion, Denies cough, Denies stridor and Denies wheezing Gastrointestinal Gastrointestingal: Reports as per HPI, abdominal pain and nausea; Denies vomiting Musculoskeletal Musculoskeletal: Reports system reviewed and no additional complaints, except as documented and Denies arthralgias Integumentary/Breasts Skin/Breast: Denies rash Neurologic Neurologic: Denies dizziness and Denies paresthesias Allergic/Immunologic Allergic/Immunologic: Denies wheezing Physical Exam General General appearance: alert and in no apparent distress Head Head exam: atraumatic, normocephalic and normal inspection Eye Eye exam: Present normal appearance, PERRL and EOMI ENT ENT exam: Present normal exam, normal oropharynx, mucous membranes moist, TM's normal bilaterally and normal external ear exam Neck Neck exam: Present normal inspection, full ROM and trachea midline; Absent meningismus or lymphadenopathy Chest Chest inspection: Present normal inspection and symmetric chest wall rise; Absent tenderness Respiratory Respiratory exam: Present normal lung sounds bilaterally; Absent respiratory distress Cardiovascular Cardiovascular exam: Present regular rate and normal rhythm; Absent JVD Abdominal Exam Abdominal exam: Present soft and normal bowel sounds; Absent distention, tenderness or guarding Extremities Exam Extremities exam: Present normal inspection, full ROM and normal capillary refill; Absent calf tenderness Back Exam Back exam: Present normal inspection; Absent tenderness Neurological Exam Neurological exam: Present alert and oriented X3 Psychiatric Psychiatric exam: Present normal affect and normal mood Skin Skin exam: Present warm, dry, intact and normal color Lymphatic Lymphatic Findings: no adenopathy Medical Decision Making Medical Records Medical records reviewed: No I reviewed the patient's medical records. Billy Siddiqui Pt receiving controlled substance: No Medical Decision Narrative: She was transferred to the er due to the location of her pain with a history of CAD.
[2024-03-19 13:20] LABS: Apearance,Urine Clear (Clear); Color,Urine Yellow (Yellow); Specific Gravity, Urine 1.025 (1.005-1.030)
[2024-03-19 13:21] LABS: Bilirubin,Urine Negative (Negative); Blood, Urine Trace (Negative); Glucose,Urine (UA) Negative (Negative); Ketones,Urine Negative (Negative); Protein,Urine Negative (Negative); UTC Leukocyte Esterase,Urine Negative (Negative); UTC Nitrate,Urine Negative (Negative); Urobilinogen,Urine 0.2 EU/dl (0.2)
[2024-03-19 13:25] VITALS: BP 184/102; PULSE 62; RESP 18; TEMP 36.9; O2SAT 99; BMI 36.1
--- NOTE | 2024-03-19 13:27 | PC.NURSE ---
PT ARRIVED TO ED FROM [facility]
--- NOTE | 2024-03-19 13:28 | XR_ITS ---
FINAL REPORT CLINICAL HISTORY: chest pain COMPARISON: 02/02/2024 FINDINGS: TWO-VIEW CHEST The heart size is normal. The mediastinum is normal. The lungs are underinflated. There is no pneumothorax. IMPRESSION: No acute cardiopulmonary process. Reviewed, Interpreted and Dictated by Ciro Shell MD Transcribed by Magdalena Castaneda Authenticated and [facility]
--- NOTE | 2024-03-19 13:31 | ECG_ITS ---
APPROVED REPORT Exam: Resting ECG HR:63 bpm ECG Measurements Heart Rate 63 AXES MI 142 P 55 QRSd 80 QRS -19 QT 426 T 24 QTc 433 Conclusion SINUS RHYTHM LOW QRS VOLTAGE IN PRECORDIAL LEADS [QRS DEFLECTION < 1.0 mV IN CHEST LEADS] BORDERLINE ECG UNCONFIRMED REPORT Electronically signed by : CYNDIE GONZALEZ, 03/23/2024 01:19:08
--- NOTE | 2024-03-19 13:40 | PC.NURSE ---
PT TO XR
[2024-03-19 13:41] LABS: Coronavirus 19, PCR Not Detected (NotDetected); Influenza A, PCR Not Detected (NotDetected); Influenza B, PCR Not Detected (NotDetected)
[2024-03-19 13:46] LABS: Basophils # 0.1 K/mm3 (0-0.2); Basophils % 1.1 % (0.1-2.0); Eosinophils # 0.1 K/mm3 (0.0-0.4); Eosinophils % 1.5 % (0.1-12.0); Hematocrit 45.2 % (37.0-47.0); Hemoglobin 14.6 g/dL (12.2-16.2); Lymphocytes # 2.5 K/mm3 (0.7-4.5); Lymphocytes % 39.3 % (10-50); Mean Corpuscular HGB Conc 32.2 g/dL (31.8-35.4); Mean Corpuscular Volume 96.4 fl (81-99); Mean Platelet Volume 8.3 fl (7.4-10.4); Monocytes # 0.5 K/mm3 (0.1-1.0); Monocytes % 7.5 % (1.7-9.3); Neutrophils # 3.2 K/mm3 (1.8-7.8); Neutrophils % 50.6 % (37.0-80.0); Platelet Count 347 K/mm3 (142-424); Red Blood Count 4.69 M/mm3 (4.20-5.40); Red Cell Distribution Width 14.6 % (11.5-17.5); White Blood Count 6.3 K/mm3 (4.8-10.8)
[2024-03-19 13:54] LABS: Chloride 105 mmol/L (98-107)
[2024-03-19 13:55] LABS: Potassium 4.3 mmoL/L (3.5-5.1); Sodium 139 mmol/L (136-145)
[2024-03-19 13:57] LABS: Alanine Aminotransferase 59 U/L (12-78); Aspartate Amino Transferase 26 U/L (14-36); Blood Urea Nitrogen 18 mg/dl (7-17); Creatinine Clearance Estimated 110 mL/min (50-200); Estimated Glomerular Filt Rate 77 ml/min (>60); GFR (African American) 93 ML/MIN (>60)
[2024-03-19 13:58] LABS: Albumin Level 4.1 g/dl (3.5-5.0); Albumin/Globulin Ratio 1.3 (1.1-1.8); Alkaline Phosphatase 118 U/L (38-126); Anion Gap 7.3 mEq/L (5-15); Bilirubin,Total 0.7 mg/dl (0.2-1.3); Calcium 9.3 mg/dl (8.4-10.2); Carbon Dioxide 31 mmol/L (22.0-30.0); Globulin 3.1 g/dL (1.3-3.2); Glucose 127 mg/dl (74-100); Total Protein,Serum 7.2 g/dl (6.3-8.2)
[2024-03-19 14:03] LABS: HCG Qualitative, Serum Positive (Negative)
[2024-03-19 14:24] LABS: Lipase 67 U/L (23-300)
[2024-03-19 14:45] LABS: Troponin I < 0.01 ng/ml (0.00-0.034)
[2024-03-19 15:01] LABS: HCG,Quantitative 5 mIU/ml (0-5.42)
[2024-03-19] MEDS: KETOROLAC 30MG/ML VIAL 15 MG IV (15:30)
[2024-03-19] MEDS: BELLADONNA ALKALOIDS 60 ML ML PO (15:30)
--- NOTE | 2024-03-19 16:37 | ECG_ITS ---
APPROVED REPORT Exam: Resting ECG HR:61 bpm ECG Measurements Heart Rate 61 AXES UT 149 P 53 QRSd 78 QRS -14 QT 430 T 19 QTc 434 Conclusion SINUS RHYTHM Electronically signed by : ASMITA ASHLEY, 03/19/2024 17:36:42
[2024-03-19 17:01] LABS: Troponin I < 0.01 ng/ml (0.00-0.034)
[2024-03-19 17:20] VITALS: BP 145/96; PULSE 76; RESP 20; TEMP 36.8; O2SAT 100
--- NOTE | 2024-03-31 20:50 | HMH.EDGENADL ---
Discharge Plan Disposition Patient Disposition: Home, Self-Care Condition: Good Prescriptions Prescriptions: No Action nitroglycerin 0.4 mg tablet, sublingual 0.4 mg sublingual Q5-15M PRN (Reason: chest pain) Qty: 30 0RF Rx Instructions: do not exceed 3 doses per episode metoprolol succinate 100 mg tablet extended release 24 hr 100 mg PO DAILY Qty: 30 2RF metformin 500 mg tablet 500 mg PO BID Patient Comments: TAKE ONE TABLET BY MOUTH TWICE DAILY with meals isosorbide mononitrate 30 mg tablet extended release 24 hr PO Patient Comments: TAKE 1 TABLET BY MOUTH DAILY hydralazine 25 mg tablet 25 mg PO TID PRN Patient Comments: TAKE ONE TABLET BY MOUTH THREE TIMES DAILY NEEDED FOR HYPERTENSION; SYSTOLIC > 170 clopidogrel 75 mg tablet 75 mg PO DAILY Patient Comments: TAKE 1 TABLET BY MOUTH EVERY DAY potassium chloride 20 mEq tablet,ER particles/crystals 20 meq PO BID Patient Comments: TAKE ONE TABLET BY MOUTH TWICE DAILY pantoprazole 40 mg tablet,delayed release (DR/EC) PO Patient Comments: TAKE ONE TABLET BY MOUTH EVERY DAY topiramate 50 mg tablet 50 mg PO DAILY Patient Comments: TAKE 1 TABLET BY MOUTH EVERY DAY. CALL AND MAKE AN APPOINTMENT WITH NE FRIAS. VIKA Creon 36,000-114,000- 180,000 unit capsule,delayed release(DR/EC) 1 cap PO BID Rx Instructions: administer with meals and/or snacks Emgality Syringe 120 mg/mL syringe 120 mg SQ QMONTH Qty: 1 5RF Ubrelvy 100 mg tablet 100 mg PO ONCE MDD 200 mg PRN (Reason: Episodic migraine) Qty: 10 5RF Rx Instructions: 1 tablet p.o. as needed at onset of migraine. May repeat after 2 hours if recurrent symptoms aspirin 81 mg tablet,delayed release (DR/EC) 81 mg PO DAILY hydroxyzine pamoate 50 mg Capsule 50 mg PO TIDP PRN (Reason: Anxiety) buspirone 30 mg tablet 15 mg PO HS valsartan 160 mg tablet 160 mg PO BID Patient Comments: TAKE ONE TABLET BY MOUTH TWICE DAILY atorvastatin 80 mg tablet 80 mg PO DAILY Qty: 30 0RF hydrochlorothiazide 25 mg tablet 25 mg PO BID 30 Days Qty: 60 0RF spironolactone 25 mg tablet 25 mg PO BID Qty: 60 0RF Referrals Follow up/Referrals: Mary Ann Polanco MD [Referring] - See instructions Laura Cobian APRN [Primary Care Provider] - See instructions Activity Restrictions/Add. Instructions Additional Instructions/Restrictions: As we discussed, your labs were reassuring in regard to pancreatitis or a heart attack. With this in mind, after further discussion of your symptoms, it sounds like your symptoms may be attributable to ongoing reflux. I have prescribed a medication to help with reducing acid and I encourage you to follow-up with your GI doctor or establish care with a new GI doctor, I have placed a referral. Please return with any new or worsening symptoms. Clinical Impressions Clinical Impression: Chest pain Qualifiers: Chest pain type: other chest pain Qualified Code(s): R07.89 - Other chest pain Discharge ED Provider: John [facility] Adult HPI General Chief complaint: Chest Pain Stated complaint: pain in left abd, nausea Time Seen by Provider: 03/19/24 13:10 Mode of Arrival: Ambulatory Source of Information: Patient Limitations: No Limitations Description of Symptoms (Recalled from ER Triage Doc. by RN): left sided chest pain, radiating up neck and arm History of Present Illness HPI narrative: This patient presents for evaluation of left upper quadrant abdominal pain Onset: Acute Location: Left upper quadrant Duration: Several hours Characteristic: Burning Alleviating/Aggrivating Factors: None identifiable Radiation: Substernal area Timing: Constant Severity: Moderate Associated symptoms: Nausea ROS: No associated palpitations, pleuritic component, syncope, presyncope, constipation, diarrhea, migration, nor diaphoresis. Patient states she has had similar symptoms attributable to history of GERD but does express concern for history of CAD as well Please note that above description of symptoms, in this electronic medical record under categorization of recalled from ER triage doctor by RN are reflective of an initial nursing assessment, however, is not reflective of my full history and physical exam that was personally taken and clarified. Consequentially, this preceding description of symptoms, which may include the patient's categorized chief complaint in the EMR, do not reflect my personal clinical impression, and the ultimate description of history of present illness and patient stated complaints should be deferred to this section of the note. Unless stated otherwise or congruent with this section of the note, additional signs, symptoms, or incongruence should be interpreted as inaccurate with my clinical impression. Related Data Home Medications Medication Instructions Recorded Confirmed aspirin 81 mg tablet,delayed 81 mg PO DAILY 12/14/23 03/25/24 release hydroxyzine pamoate 50 mg capsule 50 mg PO TIDP PRN Anxiety 12/14/23 03/25/24 buspirone 30 mg tablet 15 mg PO HS 12/15/23 03/25/24 valsartan 160 mg tablet 160 mg PO BID 03/21/24 03/25/24 clopidogrel 75 mg tablet 75 mg PO DAILY 03/25/24 03/25/24 hydralazine 25 mg tablet 25 mg PO TID PRN 03/25/24 03/25/24 isosorbide mononitrate 30 mg mg PO 03/25/24 03/25/24 tablet,extended release 24 hr svmjjr-exzcrdmn-rnncvjr 1 cap PO BID 03/25/24 03/25/24 36,000-114,000-180,000 unit capsule,delay rel (Creon) metformin 500 mg tablet 500 mg PO BID 03/25/24 03/25/24 pantoprazole 40 mg tablet,delayed mg PO 03/25/24 03/25/24 release potassium chloride 20 mEq 20 meq PO BID 03/25/24 03/25/24 tablet,extended release(part/cryst) topiramate 50 mg tablet 50 mg PO DAILY 03/25/24 03/25/24 Previous Rx's Medication Instructions Recorded metoprolol succinate 100 mg 100 mg PO DAILY #30 tabs 01/28/24 tablet,extended release 24 hr nitroglycerin 0.4 mg sublingual 0.4 mg sublingual Q5-15M PRN chest 01/28/24 tablet pain #30 tabs atorvastatin 80 mg tablet 80 mg PO DAILY #30 tabs 03/21/24 hydrochlorothiazide 25 mg tablet 25 mg PO BID 30 days #60 tabs 03/21/24 spironolactone 25 mg tablet 25 mg PO BID #60 tabs 03/21/24 galcanezumab-gnlm 120 mg/mL 120 mg SQ QMONTH #1 mL 03/25/24 subcutaneous syringe (Emgality) ubrogepant 100 mg tablet (Ubrelvy) 100 mg PO ONCE PRN Episodic 03/25/24 migraine #10 tabs Allergies Allergy/AdvReac Type Severity Reaction Status Date / Time lisinopril Allergy Verified 03/25/24 08:43 oxycodone [From Percocet] Allergy Verified 03/25/24 08:43 Sulfa (Sulfonamide Allergy Verified 03/25/24 08:43 Antibiotics) [facility] Disclaimer: The information contained in this section may have been updated after the patient was seen, as this information can be updated by other users. 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, 2002, status post laser surgeries Brain fog Known side effect of topiramate History of nephrolithiasis Least 3?5 kidney stones, recommend avoiding topiramate Family history of brain aneurysm Both mother and paternal grandfather, patient denies prior aneurysm screening Carpal tunnel syndrome of left wrist GERD (gastroesophageal reflux disease) Hypoglycemia Cervical cancer HISTORY OF Ovarian cancer HISTORY OF Hypertension Surgical History History of cardiac cath H/O LEEP History of Family History Other Family history of diabetes mellitus type II Family history of hyperlipidemia Family history of hypertension Social History Smoking Status: Unknown if ever smoked alcohol intake: never substance use type: denies use current occupational status: unemployed Travel in the last 8 weeks: None household members: significant other housing: house marital status: single ROS Obtained: Yes other As per HPI Physical Exam General General appearance: alert and in no apparent distress Head Head exam: atraumatic and normocephalic Eye Eye exam: Present normal appearance Neck Neck exam: Present normal inspection Chest Chest inspection: Present normal inspection and symmetric chest wall rise Respiratory Respiratory exam: Present normal lung sounds bilaterally; Absent respiratory distress Cardiovascular Cardiovascular exam: Present regular rate and normal rhythm Abdominal Exam Abdominal exam: Present soft Abdominal tenderness: Present LUQ, epigastrium and moderate Neurological Exam Neurological exam: Present alert and oriented X3 Psychiatric Psychiatric exam: Present normal affect and normal mood Skin Skin exam: Present warm and dry Medical Decision Making Medical Records Medical records reviewed: Yes I reviewed the patient's medical records. Billy Inquiry Pt receiving controlled substance: No Vital Signs: 03/19/24 13:05 03/19/24 13:25 03/19/24 17:20 Temperature 97.6 F 98.4 F 98.2 F Temperature Source Oral Oral Oral Pulse Rate 76 Pulse Rate [Right Radial] 69 62 Respiratory Rate 18 18 20 Blood Pressure 145/96 H Blood Pressure [Right Arm] 146/77 H 184/102 H Blood Pressure Mean [Right Arm] 100 129 Blood Pressure Source [Right Arm] Automatic Cuff Blood Pressure Position [Right Arm] Sitting 02 Sat by Pulse Oximetry 95 99 Oxygen Delivery Method Room Air Room Air Room Air Lab Data Lab Results 03/19/24 13:18: Urine Color Yellow, Urine Appearance Clear, Urine pH 7.0, Ur Specific [place] 1.025, Urine Protein Negative, Urine Glucose (UA) Negative, Urine Ketones Negative, Urine Blood Trace, Urine Nitrate Negative, Urine Bilirubin Negative, Urine Urobilinogen 0.2, Ur Leukocyte Esterase Negative 03/19/24 13:30: WBC 6.3, RBC 4.69, Hgb 14.6, Hct 45.2, MCV 96.4, MCH 31.0, MCHC 32.2, RDW 14.6, Plt Count 347, MPV 8.3, Neut % (Auto) 50.6, Lymph % (Auto) 39.3, [place] % (Auto) 7.5, Eos % (Auto) 1.5, Baso % (Auto) 1.1, Neut # (Auto) 3.2, Lymph # (Auto) 2.5, [place] # (Auto) 0.5, Eos # (Auto) 0.1, Baso # (Auto) 0.1, Sodium 139, Potassium 4.3, Chloride 105, Carbon Dioxide 31 H, Anion Gap 7.3, BUN 18 H, Creatinine 0.80, Estimated Creat Clear 110, Estimated GFR 77, Est GFR ( Amer) 93, Glucose 127 H, Calcium 9.3, Total Bilirubin 0.7, AST 26, ALT 59, Alkaline Phosphatase 118, Troponin I < 0.01, Total Protein 7.2, Albumin 4.1, Globulin 3.1, Albumin/Globulin Ratio 1.3, Lipase 67, Serum HCG, Qual Positive, HCG, Quant 5, SARS-CoV-2 (PCR) Not detected, Influenza A Untype (PCR) Not detected, Influenza Type B (PCR) Not detected 03/19/24 16:15: Troponin I < 0.01 03/19/24 13:30 03/19/24 13:30 Orders (Tests/Meds): ED MEDICATIONS Discontinued Medications Generic Name Dose Route Start Last Admin Trade Name Freq PRN Reason Stop Dose Admin Belladonna Alkaloids 60 ml 03/19/24 15:12 03/19/24 15:30 Belladonna Alkaloids 60 Ml Ml PO 03/19/24 15:13 60 ml ONCE ONE Administration Ketorolac Tromethamine 15 mg 03/19/24 15:12 03/19/24 15:30 Ketorolac 30mg/Ml Vial IV 03/19/24 15:13 15 mg ONCE ONE Administration ORDERS Category Date Time Status XR chest 2V Stat Exams 03/19/24 13:28 Completed CBC w/Auto Diff [Complete Blood Count Auto Diff] Stat Lab 03/19/24 13:30 Completed CMP [Comprehensive Metabolic Panel] Stat Lab 03/19/24 13:30 Completed HCG Qualitative, Serum Stat Lab 03/19/24 13:30 Completed HCG,Quantitative Stat Lab 03/19/24 13:30 Completed Lipase Stat Lab 03/19/24 13:30 Completed Rapid PCR Covid and Flu A/B Stat Lab 03/19/24 13:30 Completed Troponin I Q3H Lab 03/19/24 13:30 Completed Troponin I Q3H Lab 03/19/24 16:15 Completed Urine Culture Stat Micro 03/19/24 13:10 Completed HEART Score History (anamnesis): Moderately suspicious ECG: Non-specific disturbance Age: 45-65 years Risk factors: Atherosclerosis history Troponin: </= normal limit HEART Score: 5 Medical Decision Narrative: Patient with history and exam per above presenting for evaluation of left upper quadrant abdominal pain, radiating to chest Diagnoses considered include Pancreatitis, gastritis, PUD, gastroparesis, ACS, pneumonia ED workup and treatment included: ED MEDICATIONS Discontinued Medications Generic Name Dose Route Start Last Admin Trade Name Freq PRN Reason Stop Dose Admin Belladonna Alkaloids 60 ml 03/19/24 15:12 03/19/24 15:30 Belladonna Alkaloids 60 Ml Ml PO 03/19/24 15:13 60 ml ONCE ONE Administration Ketorolac Tromethamine 15 mg 03/19/24 15:12 03/19/24 15:30 Ketorolac 30mg/Ml Vial IV 03/19/24 15:13 15 mg ONCE ONE Administration ORDERS Category Date Time Status XR chest 2V Stat Exams 03/19/24 13:28 Completed CBC w/Auto Diff [Complete Blood Count Auto Diff] Stat Lab 03/19/24 13:30 Completed CMP [Comprehensive Metabolic Panel] Stat Lab 03/19/24 13:30 Completed HCG Qualitative, Serum Stat Lab 03/19/24 13:30 Completed HCG,Quantitative Stat Lab 03/19/24 13:30 Completed Lipase Stat Lab 03/19/24 13:30 Completed Rapid PCR Covid and Flu A/B Stat Lab 03/19/24 13:30 Completed Troponin I Q3H Lab 03/19/24 13:30 Completed Troponin I Q3H Lab 03/19/24 16:15 Completed Urine Culture Stat Micro 03/19/24 13:10 Completed Labs were independently interpreted by me, significant for troponins undetectable, liver enzymes within normal limits, hCG qualitative positive, however quantitative 5, patient will follow-up this result with primary care provider, highly unlikely to represent given reported history of tubal ligation, however patient was instructed that these findings do need to be followed up with primary care provider and likely trended over time as elevated hCG could represent cancerous precipitant Abnormal Labs 03/19/24 13:30 Carbon Dioxide 31 H BUN 18 H Glucose 127 H Imaging was independently visualized and interpreted by me, significant for no acute findings. Please refer to radiology report for full details. My clinical impression at this time is most consistent with GERD, after further history and reevaluation after administration of GI cocktail, patient does report that her symptoms have been attributable to known history of reflux in the past and feels very similar. She reports of burning sensation in her chest, originating in her epigastrium. She had discontinued recently PPI, has not followed up with GI doctor in several months, but does report history of abnormal endoscopy in the past consistent with PUD. For this reason she will be initiated on PPI and referral was placed to gastroenterology. I discussed my clinical impression with patient and answered all questions. At this time, the evidence for any other entities in the differential is insufficient to warrant any further testing or ED observation. This was explained to the patient. The patient was advised that persistent or worsening symptoms require further evaluation. I confirmed the patient's understanding of this discussion. Critical Care Critical Care Time Critical Care Time: No
== END 2024-03-19 17:21 | disposition home or self-care (01) ==
LOC: UTC 12:58 → ER 13:27
PROVIDERS: Emergency Medicine; Nurse Practitioner Family; Emergency Provider Emergency Medicine; PCP Nurse Practitioner
DX: R07.89 Other chest pain (principal); B96.89 Other specified bacterial agents as the cause of diseases classified elsewhere; R10.11 Right upper quadrant pain; K21.9 Gastro-esophageal reflux disease without esophagitis
CPT/HCPCS: 71046; 80053; 81003; 83690; 84484; 84702; 84703; 85025; 87086; 87636; 93005; 96374; 99284

== ENCOUNTER 2024-03-20 21:23 | Observation (INO) | payer OTHER, SELFPAY ==
[2024-03-20] VITALS (8 sets, daily range): BP systolic 147–184; BP diastolic 101–109; PULSE 92; RESP 22; TEMP 36.7; O2SAT 98; BMI 36.1
--- NOTE | 2024-03-20 21:30 | XR_ITS ---
PROCEDURE INFORMATION: Exam: XR Chest Exam date and time: 03/20/2024 9:44 PM Age: 48 years old Clinical indication: Pain; Chest pressure; Additional info: Cp TECHNIQUE: Imaging protocol: Radiologic exam of the chest. Views: 1 view. COMPARISON: CR XR CHEST 2V 03/19/2024 1:31 PM FINDINGS: Lungs: Unremarkable. No consolidation. Pleural spaces: Unremarkable. No pleural effusion. No pneumothorax. Heart/Mediastinum: Unremarkable. No cardiomegaly. Bones/joints: Unremarkable. IMPRESSION: No acute findings.
--- NOTE | 2024-03-20 21:33 | ECG_ITS ---
APPROVED REPORT Exam: Resting ECG HR:77 bpm ECG Measurements Heart Rate 77 AXES NC 141 P 52 QRSd 81 QRS 3 QT 391 T 22 QTc 423 Conclusion SINUS RHYTHM NORMAL ECG UNCONFIRMED REPORT Electronically signed by : CYNDIE GONZALEZ, 03/23/2024 01:16:59
[2024-03-20 21:57] LABS: Basophils # 0.1 K/mm3 (0-0.2); Basophils % 0.7 % (0.1-2.0); Eosinophils # 0.1 K/mm3 (0.0-0.4); Eosinophils % 0.8 % (0.1-12.0); Hematocrit 44.3 % (37.0-47.0); Hemoglobin 14.5 g/dL (12.2-16.2); Lymphocytes # 2.7 K/mm3 (0.7-4.5); Lymphocytes % 36.2 % (10-50); Mean Corpuscular HGB Conc 32.7 g/dL (31.8-35.4); Mean Corpuscular Hemoglobin 31.2 pg (27.0-31.2); Mean Corpuscular Volume 95.2 fl (81-99); Mean Platelet Volume 8.3 fl (7.4-10.4); Monocytes # 0.5 K/mm3 (0.1-1.0); Monocytes % 6.4 % (1.7-9.3); Neutrophils # 4.1 K/mm3 (1.8-7.8); Neutrophils % 55.9 % (37.0-80.0); Platelet Count 356 K/mm3 (142-424); Red Blood Count 4.65 M/mm3 (4.20-5.40); Red Cell Distribution Width 14.3 % (11.5-17.5); White Blood Count 7.3 K/mm3 (4.8-10.8)
[2024-03-20 22:02] LABS: Chloride 105 mmol/L (98-107); Sodium 138 mmol/L (136-145)
[2024-03-20 22:03] LABS: Potassium 3.9 mmoL/L (3.5-5.1)
[2024-03-20 22:05] LABS: Alanine Aminotransferase 62 U/L (12-78); Alkaline Phosphatase 134 U/L (38-126); Anion Gap 9.9 mEq/L (5-15); Aspartate Amino Transferase 33 U/L (14-36); Bilirubin,Total 0.4 mg/dl (0.2-1.3); Blood Urea Nitrogen 16 mg/dl (7-17); Carbon Dioxide 27 mmol/L (22.0-30.0); Creatinine Clearance Estimated 126 mL/min (50-200); Estimated Glomerular Filt Rate 89 ml/min (>60); GFR (African American) 108 ML/MIN (>60)
[2024-03-20 22:06] LABS: Albumin Level 4.1 g/dl (3.5-5.0); Albumin/Globulin Ratio 1.3 (1.1-1.8); Calcium 9.4 mg/dl (8.4-10.2); Globulin 3.1 g/dL (1.3-3.2); Glucose 143 mg/dl (74-100); Total Protein,Serum 7.2 g/dl (6.3-8.2)
[2024-03-20 22:15] LABS: NT Pro Brain Natriuretic Pep. 49.4 pg/mL (0-125)
[2024-03-20 22:19] LABS: Troponin I < 0.01 ng/ml (0.00-0.034)
--- NOTE | 2024-03-20 22:53 | ED_ITS ---
Discharge Plan Disposition Patient Disposition: Admitted Condition: Good Clinical Impressions Clinical Impression: Chest pain Discharge ED Provider: John Redding HPI <John Redding MD - Last Filed: 03/20/24 22:57> General Chief Complaint: Chest Pain Stated Complaint: chest pain Time Seen by Provider: 03/20/24 21:30 Mode of Arrival: Wheelchair Source of Information: Patient and Significant Other Limitations: No Limitations Description of Symptoms (Recalled from ER Triage Doc. by RN): Pt states she was here yesterday for rib pain. Tonight she was playing cards and got a sharp chest pain and her L arm is tingly. Pt did take a nitro and that gave her relief. Pt has nausea that started approx 10 minutes ago. Pt is A&O*4 at this time. History of Present Illness HPI narrative: Please note that above description of symptoms, in this electronic medical record under categorization of recalled from ER triage doctor by RN are reflective of an initial nursing assessment, however, is not reflective of my full history and physical exam that was personally taken and clarified. Consequentially, this preceding description of symptoms, which may include the patient's categorized chief complaint in the EMR, do not reflect my personal clinical impression, and the ultimate description of history of present illness and patient stated complaints should be deferred to this section of the note. Unless stated otherwise or congruent with this section of the note, additional signs, symptoms, or incongruence should be interpreted as inaccurate with my clinical impression. Related Data Home Medications Medication Instructions Recorded Confirmed aspirin 81 mg tablet,delayed 81 mg PO DAILY Blood Thinner 12/14/23 03/21/24 release atorvastatin 80 mg tablet 80 mg PO DAILY Cholesterol 12/14/23 03/21/24 clopidogrel 75 mg tablet 75 mg PO DAILY Blood Thinner 12/14/23 03/21/24 hydroxyzine pamoate 50 mg capsule 50 mg PO TIDP PRN Anxiety 12/14/23 03/21/24 ranolazine 500 mg tablet,extended 500 mg PO BID Chest Pain 12/14/23 03/21/24 release,12 hr buspirone 30 mg tablet 15 mg PO HS Anxiety 12/15/23 03/21/24 ondansetron HCl 4 mg tablet 4 mg PO Q6HP PRN NAUSEA 12/31/23 03/21/24 [id number] 36,000 cap PO TIDWMEAL 03/21/24 03/21/24 36,000-114,000-180,000 unit capsule,delay rel (Creon) metformin 500 mg tablet 500 mg PO BIDWMEAL 03/21/24 03/21/24 valsartan 80 mg tablet 500 mg PO BIDWMEAL 03/21/24 03/21/24 Previous Rx's Medication Instructions Recorded potassium chloride 20 mEq 20 meq PO BID 30 days #60 tabs 12/21/23 tablet,extended release(part/cryst) (Klor-Con M) metoprolol succinate 100 mg 100 mg PO DAILY #30 tabs 01/28/24 tablet,extended release 24 hr nitroglycerin 0.4 mg sublingual 0.4 mg sublingual Q5-15M PRN chest 01/28/24 tablet pain #30 tabs hydralazine 25 mg tablet 25 mg PO TID PRN htn #90 tabs 02/04/24 hydrochlorothiazide 25 mg tablet 25 mg PO DAILY #30 tabs 02/28/24 isosorbide mononitrate 60 mg 60 mg PO DAILY #90 tabs 03/18/24 tablet,extended release 24 hr Allergies Allergy/AdvReac Type Severity Reaction Status Date / Time lisinopril Allergy Verified 03/19/24 13:33 oxycodone [From Percocet] Allergy Verified 03/19/24 13:33 Sulfa (Sulfonamide Allergy Verified 03/19/24 13:33 Antibiotics) [facility] <John Redding MD - Last Filed: 03/20/24 22:57> [facility] Disclaimer: The information contained in this section may have been updated after the patient was seen, as this information can be updated by other users. Medical History Carpal tunnel syndrome of left wrist GERD (gastroesophageal reflux disease) Hypoglycemia Cervical cancer HISTORY OF Ovarian cancer HISTORY OF Hypertension Surgical History History of cardiac cath H/O LEEP History of Family History Other Family history of diabetes mellitus type II Family history of hyperlipidemia Family history of hypertension Social History (Updated 03/21/24 @ 02:21 by Marian Vera RN) Smoking Status: Former smoker alcohol intake: never substance use type: denies use current occupational status: unemployed Travel in the last 8 weeks: None household members: significant other housing: house marital status: single <John Redding MD - Last Filed: 03/20/24 22:57> ROS Obtained: Yes All systems reviewed & no additional complaints except as documented Physical Exam <John Redding MD - Last Filed: 03/20/24 22:57> General General appearance: alert Neck Neck exam: Present trachea midline Chest Chest inspection: Present normal inspection and symmetric chest wall rise Respiratory Respiratory exam: Present normal lung sounds bilaterally; Absent respiratory distress, wheezes, stridor, accessory muscle use or prolonged expiratory phase Cardiovascular Cardiovascular exam: Present regular rate and normal rhythm Extremities Exam Extremities exam: Absent edema Neurological Exam Neurological exam: Present alert, oriented X3 and CN II-XII intact Skin Skin exam: Present warm and dry; Absent cyanosis, diaphoresis or pallor HEART Score <John Redding MD - Last Filed: 03/20/24 22:57> HEART Score HEART Score assessment performed?: Yes HEART Score: 4 <Landon Panda MD - Last Filed: 03/21/24 03:30> HEART Score History (anamnesis): Slightly suspicious ECG: Normal Age: 45-65 years Risk factors: 1-2 risk factors Troponin: </= normal limit HEART Score: 2 Critical Care <John Redding MD - Last Filed: 03/20/24 22:57> Critical Care Time Critical Care Time: No Medical Decision Making <John Redding MD - Last Filed: 03/20/24 22:57> Medical Records Medical records reviewed: Yes I reviewed the patient's medical records. Billy Inquiry Pt receiving controlled substance: No Billy was queried for this patient: No Vital Signs Vital Signs: 03/20/24 21:23 03/20/24 21:35 03/20/24 21:58 Temperature 98.1 F Temperature Source Oral Pulse Rate 92 H Pulse Rate [Left] 92 H Respiratory Rate 22 Blood Pressure 147/104 H Blood Pressure [Right Arm] 184/109 H Blood Pressure Mean 118 Blood Pressure Mean [Right Arm] 134 02 Sat by Pulse Oximetry 98 Oxygen Delivery Method Room Air 03/20/24 22:00 03/20/24 22:26 03/20/24 22:30 Temperature Temperature Source Pulse Rate Pulse Rate [Left] Respiratory Rate Blood Pressure 154/101 H 169/106 H 157/109 H Blood Pressure [Right Arm] Blood Pressure Mean 118 122 117 Blood Pressure Mean [Right Arm] 02 Sat by Pulse Oximetry Oxygen Delivery Method 03/20/24 23:00 03/20/24 23:30 03/21/24 00:30 Temperature Temperature Source Pulse Rate 63 Pulse Rate [Left] Respiratory Rate Blood Pressure 155/102 H 155/103 H 137/105 H Blood Pressure [Right Arm] Blood Pressure Mean 116 117 113 Blood Pressure Mean [Right Arm] 02 Sat by Pulse Oximetry 99 Oxygen Delivery Method 03/21/24 01:34 03/21/24 01:45 Temperature 98.1 F Temperature Source Oral Pulse Rate 63 71 Pulse Rate [Left] Respiratory Rate 22 Blood Pressure 137/100 H Blood Pressure [Right Arm] Blood Pressure Mean Blood Pressure Mean [Right Arm] 02 Sat by Pulse Oximetry 100 Oxygen Delivery Method Room Air Lab Data Labs: Lab Results 03/20/24 21:48: WBC 7.3, RBC 4.65, Hgb 14.5, Hct 44.3, MCV 95.2, MCH 31.2, MCHC 32.7, RDW 14.3, Plt Count 356, MPV 8.3, Neut % (Auto) 55.9, Lymph % (Auto) 36.2, Waller % (Auto) 6.4, Eos % (Auto) 0.8, Baso % (Auto) 0.7, Neut # (Auto) 4.1, Lymph # (Auto) 2.7, Waller # (Auto) 0.5, Eos # (Auto) 0.1, Baso # (Auto) 0.1, Sodium 138, Potassium 3.9, Chloride 105, Carbon Dioxide 27, Anion Gap 9.9, BUN 16, Creatinine 0.70, Estimated Creat Clear 126, Estimated GFR 89, Est GFR ( Amer) 108, Glucose 143 H, Calcium 9.4, Total Bilirubin 0.4, AST 33 D, ALT 62, A lkaline Phosphatase 134 H, Troponin I < 0.01, NT-Pro-B Natriuret Pep 49.4, Total Protein 7.2, Albumin 4.1, Globulin 3.1, Albumin/Globulin Ratio 1.3 03/21/24 00:27: Troponin I 0.02 03/20/24 21:48 03/20/24 21:48 Response Orders (Tests/Meds): ED MEDICATIONS Generic Name Dose Route Start Last Admin Trade Name Freq PRN Reason Stop Dose Admin Acetaminophen 650 mg 03/21/24 01:18 Acetaminophen 325mg Tab PO 04/20/24 01:17 Q4HP PRN Fever or Mild Pain (1-3) Nitroglycerin 0.4 mg 03/21/24 01:18 Nitroglycerin 0.4mg Sl Tablet SL 04/20/24 01:17 Q5MINP PRN Chest Pain Ondansetron HCl 4 mg 03/21/24 01:18 Ondansetron 4mg/2ml Vial IV 04/20/24 01:17 Q8HP PRN Nausea Pantoprazole Sodium 40 mg 03/21/24 09:00 Pantoprazole 40mg Tablet PO 04/20/24 08:59 DAILY JOEL ORDERS Category Date Time Status Cardiology Consult [Consult to Cardiology] [CONS] Cons 03/21/24 01:18 Active Routine CXR --portable [XR chest portable] Stat Exams 03/20/24 21:30 Completed CBC w/Auto Diff [Complete Blood Count Auto Diff] Stat Lab 03/20/24 21:48 Completed CMP [Comprehensive Metabolic Panel] Stat Lab 03/20/24 21:48 Completed Complete Blood Count Auto Diff AMLAB Lab 03/21/24 06:00 Ordered Comprehensive Metabolic Panel AMLAB Lab 03/21/24 06:00 Ordered NT Pro Brain Natriuretic Pep. Stat Lab 03/20/24 21:48 Completed Trop T [Troponin I] Stat Lab 03/20/24 21:48 Completed Troponin I Q3H Lab 03/21/24 00:27 Completed Troponin I Q3H Lab 03/21/24 03:30 Ordered MDM Narrative Medical Decision Narrative: Negro is a 48-year-old female with history of hypertension, hyperlipidemia, diabetes, CAD status post stenting, chronic chest pain, anxiety presenting with chest pain. She states that again yesterday in the emergency department for chest pain. It is left-sided upper chest, radiates to her left neck, left shoulder. Is similar to the pain she has had in the past. Has been taking all her medications as prescribed. She states that she was recently prescribed as needed valsartan, but has not been taking it, as well as isosorbide mononitrate. Pain continued today, associated symptoms include tingling in her left upper extremity and her whole body. She also became nauseated and started retching. Came to the emergency department for further evaluation. History obtained with patient. On arrival, patient hypertensive, nontachycardic, afebrile, saturating appropriately on room air. Lungs are clear to auscultation, pulses are equal and symmetric, cardiac exam within normal limits. Patient appears anxious, but in no acute distress. Differential includes microvascular coronary artery disease, CHF, ACS, WI, coronary artery dissection, pneumothorax, PE, dissection, pericarditis, myocarditis, pneumothorax, aortic aneurysm, pneumonia, bronchitis, among others. Independent interpretation of EKG demonstrates sinus rhythm no ST or T wave changes concerning for acute ischemia. Intervals within normal limits. Chest x-ray without acute cardiopulmonary airspace disease. Initial troponin negative, nonactionable CBC or chemistry. BNP negative. Prior to final troponin, care handed off to oncoming physician. <Landon Panda MD - Last Filed: 03/21/24 03:30> Vital Signs Vital Signs: 03/20/24 21:23 03/20/24 21:35 03/20/24 21:58 Temperature 98.1 F Temperature Source Oral Pulse Rate 92 H Pulse Rate [Left] 92 H Respiratory Rate 22 Blood Pressure 147/104 H Blood Pressure [Right Arm] 184/109 H Blood Pressure Mean 118 Blood Pressure Mean [Right Arm] 134 02 Sat by Pulse Oximetry 98 Oxygen Delivery Method Room Air 03/20/24 22:00 03/20/24 22:26 03/20/24 22:30 Temperature Temperature Source Pulse Rate Pulse Rate [Left] Respiratory Rate Blood Pressure 154/101 H 169/106 H 157/109 H Blood Pressure [Right Arm] Blood Pressure Mean 118 122 117 Blood Pressure Mean [Right Arm] 02 Sat by Pulse Oximetry Oxygen Delivery Method 03/20/24 23:00 03/20/24 23:30 03/21/24 00:30 Temperature Temperature Source Pulse Rate 63 Pulse Rate [Left] Respiratory Rate Blood Pressure 155/102 H 155/103 H 137/105 H Blood Pressure [Right Arm] Blood Pressure Mean 116 117 113 Blood Pressure Mean [Right Arm] 02 Sat by Pulse Oximetry 99 Oxygen Delivery Method 03/21/24 01:34 03/21/24 01:45 Temperature 98.1 F Temperature Source Oral Pulse Rate 63 71 Pulse Rate [Left] Respiratory Rate 22 Blood Pressure 137/100 H Blood Pressure [Right Arm] Blood Pressure Mean Blood Pressure Mean [Right Arm] 02 Sat by Pulse Oximetry 100 Oxygen Delivery Method Room Air Lab Data Labs: Lab Results 03/20/24 21:48: WBC 7.3, RBC 4.65, Hgb 14.5, Hct 44.3, MCV 95.2, MCH 31.2, MCHC 32.7, RDW 14.3, Plt Count 356, MPV 8.3, Neut % (Auto) 55.9, Lymph % (Auto) 36.2, Waller % (Auto) 6.4, Eos % (Auto) 0.8, Baso % (Auto) 0.7, Neut # (Auto) 4.1, Lymph # (Auto) 2.7, Waller # (Auto) 0.5, Eos # (Auto) 0.1, Baso # (Auto) 0.1, Sodium 138, Potassium 3.9, Chloride 105, Carbon Dioxide 27, Anion Gap 9.9, BUN 16, Creatinine 0.70, Estimated Creat Clear 126, Estimated GFR 89, Est GFR ( Amer) 108, Glucose 143 H, Calcium 9.4, Total Bilirubin 0.4, AST 33 D, ALT 62, A lkaline Phosphatase 134 H, Troponin I < 0.01, NT-Pro-B Natriuret Pep 49.4, Total Protein 7.2, Albumin 4.1, Globulin 3.1, Albumin/Globulin Ratio 1.3 03/21/24 00:27: Troponin I 0.02 Response Orders (Tests/Meds): ED MEDICATIONS Generic Name Dose Route Start Last Admin Trade Name Enocq PRN Reason Stop Dose Admin Acetaminophen 650 mg 03/21/24 01:18 Acetaminophen 325mg Tab PO 04/20/24 01:17 Q4HP PRN Fever or Mild Pain (1-3) Nitroglycerin 0.4 mg 03/21/24 01:18 Nitroglycerin 0.4mg Sl Tablet SL 04/20/24 01:17 Q5MINP PRN Chest Pain Ondansetron HCl 4 mg 03/21/24 01:18 Ondansetron 4mg/2ml Vial IV 04/20/24 01:17 Q8HP PRN Nausea Pantoprazole Sodium 40 mg 03/21/24 09:00 Pantoprazole 40mg Tablet PO 04/20/24 08:59 DAILY JOEL ORDERS Category Date Time Status Cardiology Consult [Consult to Cardiology] [CONS] Cons 03/21/24 01:18 Active Routine CXR --portable [XR chest portable] Stat Exams 03/20/24 21:30 Completed CBC w/Auto Diff [Complete Blood Count Auto Diff] Stat Lab 03/20/24 21:48 Completed CMP [Comprehensive Metabolic Panel] Stat Lab 03/20/24 21:48 Completed Complete Blood Count Auto Diff AMLAB Lab 03/21/24 06:00 Ordered Comprehensive Metabolic Panel AMLAB Lab 03/21/24 06:00 Ordered NT Pro Brain Natriuretic Pep. Stat Lab 03/20/24 21:48 Completed Trop T [Troponin I] Stat Lab 03/20/24 21:48 Completed Troponin I Q3H Lab 03/21/24 00:27 Completed Troponin I Q3H Lab 03/21/24 03:30 Ordered MDM Narrative Medical Decision Narrative: Negro is a 48-year-old female with history of hypertension, hyperlipidemia, diabetes, CAD status post stenting, chronic chest pain, anxiety presenting with chest pain. She states that again yesterday in the emergency department for chest pain. It is left-sided upper chest, radiates to her left neck, left shoulder. Is similar to the pain she has had in the past. Has been taking all her medications as prescribed. She states that she was recently prescribed as needed valsartan, but has not been taking it, as well as isosorbide mononitrate. Pain continued today, associated symptoms include tingling in her left upper extremity and her whole body. She also became nauseated and started retching. Came to the emergency department for further evaluation. History obtained with patient. On arrival, patient hypertensive, nontachycardic, afebrile, saturating appropriately on room air. Lungs are clear to auscultation, pulses are equal and symmetric, cardiac exam within normal limits. Patient appears anxious, but in no acute distress. Differential includes microvascular coronary artery disease, CHF, ACS, WI, coronary artery dissection, pneumothorax, PE, dissection, pericarditis, myocarditis, pneumothorax, aortic aneurysm, pneumonia, bronchitis, among others. Independent interpretation of EKG demonstrates sinus rhythm no ST or T wave changes concerning for acute ischemia. Intervals within normal limits. Chest x-ray without acute cardiopulmonary airspace disease. Initial troponin negative, nonactionable CBC or chemistry. BNP negative. Prior to final troponin, care handed off to oncoming physician. Panda: Upon my assumption of care patient is stable and resting comfortably. I reviewed workup performed by Dr. Redding and agree with his assessment and plan so far. I reviewed most recent cardiology note from 2 days ago which demonstrates patient was supposed to start taking isosorbide 60 mg daily, she also was supposed to follow-up on the with Dr. Palacios for KAREN. Patient has also been gaining weight based on that note which is a comorbidity of her current condition and increases risk of cardiac pathology. initial troponin undetectably low at less than 0.01 but given patient has ongoing symptoms, delta troponin is necessary. I placed the patient into ED observation for serial troponins in order to preclude unnecessary admission and to rule out evolving WI. Patient was placed into ED observation at 2301. Repeat troponin was 0.02. Her chest pain however has improved. I contacted Dr. Reyes and had a phone discussion with him regarding patient's 7 visits to the ER since the beginning of the year, 5 visits to cardiology in the last 2 months for recurrent chest pain. He recommended admission for cardiac catheterization. Patient is amenable to this plan. I contacted the hospitalist and discussed this with him. Patient has been accepted for admission. Total time in ED observation was 2 hours
[2024-03-21] VITALS (17 sets, daily range): BP systolic 117–179; BP diastolic 71–115; PULSE 56–80; RESP 16–22; TEMP 36.4–36.9; O2SAT 97–100; BMI 36.3
[2024-03-21 00:57] LABS: Troponin I 0.02 ng/ml (0.00-0.034)
--- NOTE | 2024-03-21 01:16 | PC.NURSE ---
on phone with viry
--- NOTE | 2024-03-21 01:20 | EXP.HP ---
History of Present Illness *Admission Date: 03/21/24 *Reason for visit:: CP *History of present illness: This is a 48-year-old female with PMHx of hypertension, hyperlipidemia, diabetes, CAD status post stenting, chronic chest pain, anxiety presenting with chest pain. She states that again yesterday in the emergency department for chest pain. It is left-sided upper chest, radiates to her left neck, left shoulder. Is similar to the pain she has had in the past. Has been taking all her medications as prescribed. She states that she was recently prescribed as needed valsartan and isosorbide, but has not been taking it, Admitted for monitoring and management [facility] Disclaimer: The information contained in this section may have been updated after the patient was seen, as this information can be updated by other users. Medical History Carpal tunnel syndrome of left wrist GERD (gastroesophageal reflux disease) Hypoglycemia Cervical cancer HISTORY OF Ovarian cancer HISTORY OF Hypertension Surgical History History of cardiac cath H/O LEEP History of Family History Other Family history of diabetes mellitus type II Family history of hyperlipidemia Family history of hypertension Social History (Updated 03/21/24 @ 02:21 by Marian Vera RN) Smoking Status: Former smoker alcohol intake: never substance use type: denies use current occupational status: unemployed Travel in the last 8 weeks: None household members: significant other housing: house marital status: single Review of Systems Review of Systems Review of systems:: pertinent systems reviewed and negative unless documented below Meds Home Medications and Allergies Home Medications Medication Instructions Recorded Confirmed Type aspirin 81 mg tablet,delayed 81 mg PO DAILY 12/14/23 03/21/24 History release hydroxyzine pamoate 50 mg capsule 50 mg PO TIDP PRN Anxiety 12/14/23 03/21/24 History buspirone 30 mg tablet 15 mg PO HS 12/15/23 03/21/24 History metoprolol succinate 100 mg 100 mg PO DAILY #30 tabs 01/28/24 03/21/24 Rx tablet,extended release 24 hr nitroglycerin 0.4 mg sublingual 0.4 mg sublingual Q5-15M PRN chest 01/28/24 03/21/24 Rx tablet pain #30 tabs atorvastatin 80 mg tablet 80 mg PO DAILY #30 tabs 03/21/24 Rx hydrochlorothiazide 25 mg tablet 25 mg PO BID 30 days #60 tabs 03/21/24 Rx spironolactone 25 mg tablet 25 mg PO BID #60 tabs 03/21/24 Rx valsartan 160 mg tablet 160 mg PO BID 03/21/24 03/21/24 History New Prescriptions to Start Prescriptions: atorvastatin Pepe Enriquez hydrochlorothiazide Pepe Enriquez spironolactone Pepe Enriquez Allergies Allergy/AdvReac Type Severity Reaction Status Date / Time lisinopril Allergy Verified 03/19/24 13:33 oxycodone [From Percocet] Allergy Verified 03/19/24 13:33 Sulfa (Sulfonamide Allergy Verified 03/19/24 13:33 Antibiotics) Exam Data for Last 24 hours Vital signs and Labs for Last 24 Hours: Temp Pulse Resp BP Pulse Ox O2 Del Method 98.1 F 92 H 22 155/103 H 98 Room Air 03/20/24 21:23 03/20/24 21:35 03/20/24 21:23 03/20/24 23:30 03/20/24 21:23 03/20/24 21:23 Laboratory Results - last 24 hr 03/20/24 21:48: WBC 7.3, RBC 4.65, Hgb 14.5, Hct 44.3, MCV 95.2, MCH 31.2, MCHC 32.7, RDW 14.3, Plt Count 356, MPV 8.3, Neut % (Auto) 55.9, Lymph % (Auto) 36.2, [place] % (Auto) 6.4, Eos % (Auto) 0.8, Baso % (Auto) 0.7, Neut # (Auto) 4.1, Lymph # (Auto) 2.7, [place] # (Auto) 0.5, Eos # (Auto) 0.1, Baso # (Auto) 0.1, Sodium 138, Potassium 3.9, Chloride 105, Carbon Dioxide 27, Anion Gap 9.9, BUN 16, Creatinine 0.70, Estimated Creat Clear 126, Estimated GFR 89, Est GFR ( Amer) 108, Glucose 143 H, Calcium 9.4, Total Bilirubin 0.4, AST 33 D, ALT 62, Alkaline Phosphatase 134 H, Troponin I < 0.01, NT-Pro-B Natriuret Pep 49.4, Total Protein 7.2, Albumin 4.1, Globulin 3.1, Albumin/Globulin Ratio 1.3 03/21/24 00:27: Troponin I 0.02 Temp Pulse Resp BP Pulse Ox O2 Del Method 98.2 F 78 18 141/93 H 99 Room Air 12/20/23 14:23 12/20/23 14:23 12/20/23 14:23 12/20/23 14:23 12/20/23 14:23 12/20/23 14:23 Laboratory Results - last 24 hr 12/20/23 14:22: WBC 7.5, RBC 4.58, Hgb 14.4, Hct 41.8, MCV 91.2, MCH 31.5 H, MCHC 34.6, RDW 13.4, Plt Count 347, MPV 8.6, Neut % (Auto) 56.2, Lymph % (Auto) 33.0, [place] % (Auto) 9.2, Eos % (Auto) 0.7, Baso % (Auto) 0.9, Neut # (Auto) 4.2, Lymph # (Auto) 2.5, [place] # (Auto) 0.7, Eos # (Auto) 0.1, Baso # (Auto) 0.1, Sodium 138, Potassium 3.5, Chloride 101, Carbon Dioxide 27, Anion Gap 13.5, BUN 16, Creatinine 0.80, Estimated Creat Clear 110, Estimated GFR 77, Est GFR ( Amer) 93, Glucose 122 H, Calcium 9.6, Troponin I < 0.01 I & O for Last 24 hours: Intake & Output 03/18/24 03/19/24 03/20/24 03/21/24 23:59 23:59 23:59 23:59 Weight 81.193 kg Intake & Output 12/17/23 12/18/23 12/19/23 12/20/23 23:59 23:59 23:59 23:59 Weight 80.739 kg Constitutional Constitutional: no acute distress, obese and cooperative *Routine HEENT Exam Head: Present normocephalic and atraumatic Eye: Present EOMI, PERRL and normal accommodation ENT: Present mucous membranes moist *Routine Neck Exam Neck: Present supple, full ROM and trachea midline Routine Chest/Breast/Axilla Exam Chest wall: Present tenderness *Routine Respiratory Exam Respiratory: Present normal respiratory effort, able to speak in complete sentences and symmetric chest movement; Absent respiratory distress *Routine Cardiovascular Exam Cardiovascular: Present RRR, Normal S1 and Normal S2 *Routine Abdominal Exam Abdominal: Present soft and normoactive bowel sounds; Absent organomegaly *Routine Rectal Exam Rectal:: deferred *Routine Genitalia Exam Genitalia:: deferred *Routine Extremities Exam Extremities: Present full ROM and pulses intact; Absent cyanosis, clubbing or edema *Routine Skin Exam Skin: Present intact, dry and warm *Routine Neurological Exam Neurological: Present alert, oriented X3, normal reflexes, moving all extremities and normal speech Routine Psychiatric Exam Psychiatric: Present normal thought process, cooperative, good judgment and anxious H&P: Result Imaging and Cardiology EKG: Status: image reviewed by me, Preliminary report and final report Chest x-ray: Status: image reviewed by me, Preliminary report and final report Assessment and Plan *Assessment and plan (1) Unstable angina: Status: Resolved Category: Medical Code(s): I20.0 - Unstable angina (2) Coronary artery disease: Status: Acute Qualifiers: Associated angina: with unstable angina Coronary Disease-Associated Artery/Lesion type: [place] artery [place] vs. transplanted heart: [place] heart Qualified Code(s): I25.110 - Atherosclerotic heart disease of [place] coronary artery with unstable angina pectoris Category: Medical Code(s): I25.10 - Atherosclerotic heart disease of [place] coronary artery without angina pectoris (3) [place] angina: Status: Resolved Category: Medical Code(s): I20.0 - Unstable angina (4) HLD (hyperlipidemia): Status: Acute Qualifiers: Hyperlipidemia type: unspecified Qualified Code(s): E78.5 - Hyperlipidemia, unspecified Category: Medical Code(s): E78.5 - Hyperlipidemia, unspecified (5) Hypertension: Status: Acute Qualifiers: Hypertension type: unspecified Qualified Code(s): I10 - Essential (primary) hypertension Category: Medical Code(s): I10 - Essential (primary) hypertension (6) GERD (gastroesophageal reflux disease): Status: Acute Qualifiers: Esophagitis presence: esophagitis presence not specified Qualified Code(s): K21.9 - Gastro-esophageal reflux disease without esophagitis Category: Medical Code(s): K21.9 - Gastro-esophageal reflux disease without esophagitis (7) Diabetes: Status: Acute Qualifiers: Diabetes mellitus complication status: with other specified complication Diabetes mellitus senior care insulin use: 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 Diabetes mellitus type: type 2 Qualified Code(s): E11.69 - Type 2 diabetes mellitus with other specified complication Category: Medical Code(s): E11.9 - Type 2 diabetes mellitus without complications (8) Anxiety: Status: Acute Category: Medical Code(s): F41.9 - Anxiety disorder, unspecified (9) Current smoker: Status: Acute Category: Social Hx Code(s): F17.200 - Nicotine dependence, unspecified, uncomplicated (10) Obesity (BMI 30-39.9): Status: Acute Category: Medical Code(s): E66.9 - Obesity, unspecified Plan 48-year-old obese female with PMHx of CAD with angina, s/p stent, HTN, HLD, prediabetes, GERD, current smoker and anxiety presenting with chest pain. She states that again yesterday in the emergency department for chest pain. She states that she was recently prescribed as needed valsartan and isosorbide, but has not been taking it. on arrival EKG is normal. no ST changes. troponin are negative ER requested admission for unstable angina and left heart cath, after consultation with Cardiology who recommended admission. Medicine agreed to admit. Plan as follow: -Unstable angina CAD s/p stent: Last cath on November/2023 IMPRESSION: Widely patent proximal LAD stent, Hyperdynamic ventricle, Severe to critically elevated LVEDP admit patient Cardiology consulted start continuous cardiac monitoring serial troponin. neg ekg reviewed. Neg nitro SL as needed repeat and monitoring morning labs Others chronic conditions: HTN, HLD, GERD, Diabetes conditons are stables resume home regimen \ on Plavix Anxiety: looks like is a huge contributor to the repeated ER visit and recent hospitalization educated on symptoms management patient on buspar 15mg Smoker On nicotine patch obesity encouraged to reduced weight Full code Rounded on patient after nurse practitioner. Personally examined and interviewed patient. Agree with exam findings and care plan as documented.
--- NOTE | 2024-03-21 01:33 | PC.NURSE ---
9111 RECEIVED PHONE REPORT FROM Pramod HAZEL RN/ED NURSE. PATIENT IS A 48 YO FEMALE WITH C/O CHEST PAIN UNRELIEVED WITH S.L. NTG. WAS SEEN HERE ON 03/19 AND [facility] 03/20. TO COME UP BY W/C TO ROOM 200.
--- NOTE | 2024-03-21 01:44 | PC.NURSE ---
I called med/surg to see if someone was going to be able to transport the pt. Valentine reports they are cleaning her room and she will send someone down.
--- NOTE | 2024-03-21 02:13 | PC.NURSE ---
Patient arrived to floor via wheelchair from ED at 1:52.
[2024-03-21 04:18] LABS: Basophils # 0.1 K/mm3 (0-0.2); Basophils % 0.8 % (0.1-2.0); Eosinophils # 0.1 K/mm3 (0.0-0.4); Eosinophils % 1.5 % (0.1-12.0); Hematocrit 43.5 % (37.0-47.0); Hemoglobin 14.6 g/dL (12.2-16.2); Lymphocytes # 2.8 K/mm3 (0.7-4.5); Lymphocytes % 38.1 % (10-50); Mean Corpuscular HGB Conc 33.4 g/dL (31.8-35.4); Mean Corpuscular Hemoglobin 31.5 pg (27.0-31.2); Mean Corpuscular Volume 94.2 fl (81-99); Monocytes # 0.6 K/mm3 (0.1-1.0); Monocytes % 7.7 % (1.7-9.3); Neutrophils # 3.8 K/mm3 (1.8-7.8); Neutrophils % 51.9 % (37.0-80.0); Platelet Count 327 K/mm3 (142-424); Red Blood Count 4.62 M/mm3 (4.20-5.40); Red Cell Distribution Width 14.5 % (11.5-17.5); White Blood Count 7.3 K/mm3 (4.8-10.8)
[2024-03-21 04:23] LABS: Chloride 105 mmol/L (98-107); Potassium 3.9 mmoL/L (3.5-5.1); Sodium 139 mmol/L (136-145)
[2024-03-21 04:26] LABS: Alanine Aminotransferase 70 U/L (12-78); Albumin Level 4.1 g/dl (3.5-5.0); Albumin/Globulin Ratio 1.4 (1.1-1.8); Alkaline Phosphatase 138 U/L (38-126); Anion Gap 9.9 mEq/L (5-15); Aspartate Amino Transferase 38 U/L (14-36); Bilirubin,Total 0.4 mg/dl (0.2-1.3); Blood Urea Nitrogen 16 mg/dl (7-17); Carbon Dioxide 28 mmol/L (22.0-30.0); Creatinine Clearance Estimated 148 mL/min (50-200); Estimated Glomerular Filt Rate 107 ml/min (>60); GFR (African American) 129 ML/MIN (>60); Globulin 2.9 g/dL (1.3-3.2)
[2024-03-21 04:27] LABS: Calcium 9.5 mg/dl (8.4-10.2); Glucose 110 mg/dl (74-100)
[2024-03-21 04:39] LABS: Troponin I < 0.01 ng/ml (0.00-0.034)
[2024-03-21] MEDS: PANTOPRAZOLE 40MG TABLET 40 MG PO (08:07)
--- NOTE | 2024-03-21 08:26 | EXP.CARD.CON ---
History of Present Illness History of Present Illness Consult date: 03/21/24 Requesting physician: Pepe Enriquez Consult reason: chest pain and hypertension Chief complaint: Labile hypertension, chest pain Additional Medical History:: 1. CAD A. LAD stent, [place]2022, [place] [facility]. [facility], 11/2023, widely patent proximal LAD stent with 30% in-stent restenosis, hyperdynamic ventricle with EF 70-75%, LVEDP elevated at 35 to 40 mmHg 2. Hypertension, labile A. Renal artery duplex, 03/11/2024, greater than 60% left renal artery stenosis B. Renal ultrasound 03/11/2024, unremarkable C. Abdomen/pelvis CT, 02/21/2024, cyst or follicle in the left ovary, may be physiologic. No significant mass or inflammatory reaction. 3. Tobacco use, recently discontinued, early 2023 4. Diabetes 5. Hyperlipidemia History of present illness: 48-year-old female presented to the emergency department (now on the seventh visit in the last 4 to 5 months for chest pain) and was admitted due to chest pain with elevated blood pressure. Troponins have returned normal overnight. EKG showed no acute ST segment elevation. Blood pressure is labile with readings of 117/71 this morning last evening as high as 180/115 mmHg. Patient adamantly states that she is compliant with her medications despite multiple medication changes over the last few months. She has quit smoking and decreased her soda intake to 1 diet soda per day. Last evening she was sitting and playing cards at home with friends when all of a sudden she felt some chest pressure radiating into the neck with numbness down the left arm and some transient visual disturbances. This prompted the ER visit and subsequent admission. [facility] Disclaimer: The information contained in this section may have been updated after the patient was seen, as this information can be updated by other users. Medical History Carpal tunnel syndrome of left wrist GERD (gastroesophageal reflux disease) Hypoglycemia Cervical cancer HISTORY OF Ovarian cancer HISTORY OF Hypertension Surgical History History of cardiac cath H/O LEEP History of Family History Other Family history of diabetes mellitus type II Family history of hyperlipidemia Family history of hypertension Social History (Updated 03/21/24 @ 02:21 by Marian Vera RN) Smoking Status: Former smoker alcohol intake: never substance use type: denies use current occupational status: unemployed Travel in the last 8 weeks: None household members: significant other housing: house marital status: single Review of Systems Review of Systems Review of systems:: pertinent systems reviewed and negative unless documented below *Cardiovascular Cardiovascular: Reports chest pain Exam Data for Last 24 hours Vital signs and Labs for Last 24 Hours: Temp Pulse Resp BP Pulse Ox O2 Del Method 97.6 F 56 L 18 117/71 98 Room Air 03/21/24 07:27 03/21/24 07:27 03/21/24 07:27 03/21/24 07:27 03/21/24 07:27 03/21/24 07:27 Laboratory Results - last 24 hr 03/20/24 21:48: WBC 7.3, RBC 4.65, Hgb 14.5, Hct 44.3, MCV 95.2, MCH 31.2, MCHC 32.7, RDW 14.3, Plt Count 356, MPV 8.3, Neut % (Auto) 55.9, Lymph % (Auto) 36.2, [place] % (Auto) 6.4, Eos % (Auto) 0.8, Baso % (Auto) 0.7, Neut # (Auto) 4.1, Lymph # (Auto) 2.7, [place] # (Auto) 0.5, Eos # (Auto) 0.1, Baso # (Auto) 0.1, Sodium 138, Potassium 3.9, Chloride 105, Carbon Dioxide 27, Anion Gap 9.9, BUN 16, Creatinine 0.70, Estimated Creat Clear 126, Estimated GFR 89, Est GFR ( Amer) 108, Glucose 143 H, Calcium 9.4, Total Bilirubin 0.4, AST 33 D, ALT 62, Alkaline Phosphatase 134 H, Troponin I < 0.01, NT-Pro-B Natriuret Pep 49.4, Total Protein 7.2, Albumin 4.1, Globulin 3.1, Albumin/Globulin Ratio 1.3 03/21/24 00:27: Troponin I 0.02 03/21/24 04:10: WBC 7.3, RBC 4.62, Hgb 14.6, Hct 43.5, MCV 94.2, MCH 31.5 H, MCHC 33.4, RDW 14.5, Plt Count 327, MPV 8.0, Neut % (Auto) 51.9, Lymph % (Auto) 38.1, [place] % (Auto) 7.7, Eos % (Auto) 1.5, Baso % (Auto) 0.8, Neut # (Auto) 3.8, Lymph # (Auto) 2.8, [place] # (Auto) 0.6, Eos # (Auto) 0.1, Baso # (Auto) 0.1, Sodium 139, Potassium 3.9, Chloride 105, Carbon Dioxide 28, Anion Gap 9.9, BUN 16, Creatinine 0.60, Estimated Creat Clear 148, Estimated GFR 107, Est GFR ( Amer) 129, Glucose 110 H D, Calcium 9.5, Total Bilirubin 0.4, AST 38 H, ALT 70, Alkaline Phosphatase 138 H, Troponin I < 0.01, Total Protein 7.0, Albumin 4.1, Globulin 2.9, Albumin/Globulin Ratio 1.4 I & O for Last 24 hours: Intake & Output 03/18/24 03/19/24 03/20/24 03/21/24 11:59 11:59 11:59 11:59 Output Total 0 / 0 Balance 0 / 0 Weight 180 lb 6.997 oz Constitutional Constitutional: no acute distress *Routine Respiratory Exam Respiratory: Present CTA bilaterally *Routine Cardiovascular Exam Cardiovascular: Present RRR; Absent murmur, gallop or rubs *Routine Extremities Exam Extremities: Absent edema Meds Home Medications and Allergies Home Medications Medication Instructions Recorded Confirmed Type aspirin 81 mg tablet,delayed 81 mg PO DAILY 12/14/23 03/21/24 History release clopidogrel 75 mg tablet 75 mg PO DAILY 12/14/23 03/21/24 History hydroxyzine pamoate 50 mg capsule 50 mg PO TIDP PRN Anxiety 12/14/23 03/21/24 History buspirone 30 mg tablet 15 mg PO HS 12/15/23 03/21/24 History metoprolol succinate 100 mg 100 mg PO DAILY #30 tabs 01/28/24 03/21/24 Rx tablet,extended release 24 hr nitroglycerin 0.4 mg sublingual 0.4 mg sublingual Q5-15M PRN chest 01/28/24 03/21/24 Rx tablet pain #30 tabs hydralazine 25 mg tablet 25 mg PO TID PRN HYPERTENSION WITH 03/21/24 03/21/24 History SBP >170 valsartan 160 mg tablet 160 mg PO BID 03/21/24 03/21/24 History New Prescriptions to Start Prescriptions: Allergies Allergy/AdvReac Type Severity Reaction Status Date / Time lisinopril Allergy Verified 03/19/24 13:33 oxycodone [From Percocet] Allergy Verified 03/19/24 13:33 Sulfa (Sulfonamide Allergy Verified 03/19/24 13:33 Antibiotics) Assessment and Plan *Assessment and plan (1) Chest pain: Status: Acute Qualifiers: Chest pain type: other chest pain Qualified Code(s): R07.89 - Other chest pain Category: Medical Code(s): R07.9 - Chest pain, unspecified (2) Hypertension, uncontrolled: Status: Acute Category: Medical Code(s): I10 - Essential (primary) hypertension (3) Headache: Status: Acute Qualifiers: Headache chronicity pattern: acute headache Headache type: unspecified Intractability: not intractable Qualified Code(s): R51.9 - Headache, unspecified Category: Medical Code(s): R51.9 - Headache, unspecified (4) Transient neurological symptoms: Status: Acute Category: Medical Code(s): R29.818 - Other symptoms and signs involving the nervous system (5) BMI 36.0-36.9,adult: Status: Chronic Category: Medical Code(s): Z68.36 - Body mass index [BMI] 36.0-36.9, adult (6) Diabetes: Status: Acute Qualifiers: Diabetes mellitus complication status: with other specified complication Diabetes mellitus penitentiary insulin use: without penitentiary use Diabetes mellitus type: type 2 Qualified Code(s): E11.69 - Type 2 diabetes mellitus with other specified complication Category: Medical Code(s): E11.9 - Type 2 diabetes mellitus without complications (7) Coronary artery disease: Status: Acute Qualifiers: Associated angina: with unstable angina Coronary Disease-Associated Artery/Lesion type: [place] artery [place] vs. transplanted heart: [place] heart Qualified Code(s): I25.110 - Atherosclerotic heart disease of [place] coronary artery with unstable angina pectoris Category: Medical Code(s): I25.10 - Atherosclerotic heart disease of [place] coronary artery without angina pectoris (8) Presence of stent in coronary artery in patient with coronary artery disease: Status: Acute Category: Medical Code(s): I25.10 - Atherosclerotic heart disease of [place] coronary artery without angina pectoris; Z95.5 - Presence of coronary angioplasty implant and graft Plan 1. Chest pain with normal troponins and no acute EKG changes. -Likely related to labile hypertension 2. Hypertension, labile with known left renal artery stenosis -Plan for renal angiogram and possible stenting today -Continue aspirin and Plavix 3. Diabetes, defer to hospitalist 4. CAD with prior coronary artery stenting in 2022 -Normal troponin this admission 5. Hyperlipidemia -On atorvastatin 80 mg daily -LDL 75, November 2023 Renal angiogram normal. Home med recs: Metoprolol succinate 50 mg daily valsartan 160 mg BID HCTZ 25 mg BID spironolactone 25 mg BID ASA 81 mg daily Stop plavix (greater than one year out from coronary stenting) Follow up in one week.
--- NOTE | 2024-03-21 08:59 | IR_ITS ---
APPROVED REPORT Patient Location: Inpatient Glaze Mixer: REED Brenner RT (R) PROCEDURES Bilateral selective renal angiography INDICATION Abnormal renal duplex, Malignant hypertension suspect renal artery stenosis Informed consent was obtained prior to the procedure. COMPLICATIONS NONE Estimated Blood Loss: LESS THAN 10 ML TECHNIQUE 1% lidocaine used to anesthetize the right femoral groin. The right femoral artery was accessed via the Seldinger technique. A 4 Pashto sheath was placed in the right femoral artery. The JR4 catheter was used to selectively intubate each renal artery. At the end of the diagnostic angiogram the patient was transferred to the postop holding area in stable condition for sheath removal. ANGIOGRAPHIC RESULTS Right renal artery singular normal Left renal artery singular normal IMPRESSION Normal renal arteries PLAN 1. Treat diastolic dysfunction which is etiology for patient's symptoms Electronically signed by : Víctor Reyes MD 03/21/2024 14:36:22
[2024-03-21] MEDS: CLOPIDOGREL 75MG TAB 75 MG PO (09:37)
[2024-03-21] MEDS: ASPIRIN EC 81MG TABLET 81 MG PO (09:37)
[2024-03-21] MEDS: METOPROLOL SUCCINATE XL 50MG TABLET 50 MG PO (09:37)
[2024-03-21] MEDS: 0.9 % SODIUM CHLORIDE 500 ML 25 ML IV (14:10)
[2024-03-21] MEDS: HEPARIN 1,000 UNITS/500ML NS (CATH LAB) 3000 UNIT IV (14:10)
[2024-03-21] MEDS: diphenhydrAMINE 50MG/ML VIAL 50 MG IV (14:11)
[2024-03-21] MEDS: LIDOCAINE 1% 10ML MDV 20 ML IJ (14:11)
[2024-03-21] MEDS: MIDAZOLAM HCL 1MG/1ML 5ML VIAL 1 MG IV (14:37)
[2024-03-21] MEDS: FENTANYL 100MCG/2ML VIAL 50 MCG IV (14:37)
[2024-03-21] MEDS: IOPAMIDOL-370 (76%);100ML BOTTLE 20 ML IV (15:12)
--- NOTE | 2024-03-21 15:22 | EXP.DC.SUM ---
General Admission date:: 03/21/24 Discharge date: 03/21/24 HPI HPI HPI: This is a 48-year-old female with PMHx of hypertension, hyperlipidemia, diabetes, CAD status post stenting, chronic chest pain, anxiety presenting with chest pain. She states that again yesterday in the emergency department for chest pain. It is left-sided upper chest, radiates to her left neck, left shoulder. Is similar to the pain she has had in the past. Has been taking all her medications as prescribed. She states that she was recently prescribed as needed valsartan and isosorbide, but has not been taking it, Admitted for monitoring and management Hospital Course Hospital Course Hospital Course: 48-year-old obese female with PMHx of CAD with angina, s/p stent, HTN, HLD, prediabetes, GERD, current smoker and anxiety presenting with chest pain. She states that again yesterday in the emergency department for chest pain. She states that she was recently prescribed as needed valsartan and isosorbide, but has not been taking it. on arrival EKG is normal. no ST changes. troponin are negative ER requested admission for unstable angina and left heart cath, after consultation with Cardiology who recommended admission. Medicine agreed to admit. Patient's chest pain improved with improvement in blood pressure. Was taken for renal angiogram due to her stenosis on imaging and hypertension. Found to have noncritical disease. Stable to discharge home with continued medical management. Problems addressed as follows: -Unstable angina CAD s/p stent: Hypertension Patient admitted to medicine for management of blood pressure and cardiology eval. Review of chart shows that she had heart cath performed in November with widely patent LAD stent. Hyperdynamic ventricle. Severe to critically elevated LVEDP. Recently had a eval of renal arteries showing concern for stenosis. Cardiology recommended renal angiogram. Procedure performed with finding of normal renal arteries. No stenosis and no stents placed. Serial troponins negative. EKG with no ST changes. Adjustments to her regimen. Will continue metoprolol succinate 50 mg daily, valsartan 160 mg twice daily, HCTZ 25 mg twice daily, spironolactone 25 mg twice daily and aspirin 81 mg daily. As she has more than a year out her stent, we will stop Plavix at this time. Hyperlipidemia: Continue statin with Lipitor 80 mg daily Anxiety: looks like is a huge contributor to the repeated ER visit and recent hospitalization. Continue to abuse at discharge. Recommend further adjustments as an outpatient. Ient on buspar 15mg Continue to encourage smoking cessation Obesity complicates all aspects of her care. Stable to discharge home for continued medical management Exam Data for Last 24 hours Vital signs and Labs for Last 24 Hours: Temp Pulse Resp BP Pulse Ox O2 Del Method 97.6 F 56 L 18 117/71 98 Room Air 03/21/24 07:27 03/21/24 07:27 03/21/24 07:27 03/21/24 07:27 03/21/24 07:27 03/21/24 07:27 Laboratory Results - last 24 hr 03/20/24 21:48: WBC 7.3, RBC 4.65, Hgb 14.5, Hct 44.3, MCV 95.2, MCH 31.2, MCHC 32.7, RDW 14.3, Plt Count 356, MPV 8.3, Neut % (Auto) 55.9, Lymph % (Auto) 36.2, [place] % (Auto) 6.4, Eos % (Auto) 0.8, Baso % (Auto) 0.7, Neut # (Auto) 4.1, Lymph # (Auto) 2.7, [place] # (Auto) 0.5, Eos # (Auto) 0.1, Baso # (Auto) 0.1, Sodium 138, Potassium 3.9, Chloride 105, Carbon Dioxide 27, Anion Gap 9.9, BUN 16, Creatinine 0.70, Estimated Creat Clear 126, Estimated GFR 89, Est GFR ( Amer) 108, Glucose 143 H, Calcium 9.4, Total Bilirubin 0.4, AST 33 D, ALT 62, Alkaline Phosphatase 134 H, Troponin I < 0.01, NT-Pro-B Natriuret Pep 49.4, Total Protein 7.2, Albumin 4.1, Globulin 3.1, Albumin/Globulin Ratio 1.3 03/21/24 00:27: Troponin I 0.02 03/21/24 04:10: WBC 7.3, RBC 4.62, Hgb 14.6, Hct 43.5, MCV 94.2, MCH 31.5 H, MCHC 33.4, RDW 14.5, Plt Count 327, MPV 8.0, Neut % (Auto) 51.9, Lymph % (Auto) 38.1, [place] % (Auto) 7.7, Eos % (Auto) 1.5, Baso % (Auto) 0.8, Neut # (Auto) 3.8, Lymph # (Auto) 2.8, [place] # (Auto) 0.6, Eos # (Auto) 0.1, Baso # (Auto) 0.1, Sodium 139, Potassium 3.9, Chloride 105, Carbon Dioxide 28, Anion Gap 9.9, BUN 16, Creatinine 0.60, Estimated Creat Clear 148, Estimated GFR 107, Est GFR ( Amer) 129, Glucose 110 H D, Calcium 9.5, Total Bilirubin 0.4, AST 38 H, ALT 70, Alkaline Phosphatase 138 H, Troponin I < 0.01, Total Protein 7.0, Albumin 4.1, Globulin 2.9, Albumin/Globulin Ratio 1.4 I & O for Last 24 hours: Intake & Output 03/18/24 03/19/24 03/20/24 03/21/24 23:59 23:59 23:59 23:59 Output Total 0 / 0 Balance 0 / 0 Weight 81.193 kg 81.845 kg Constitutional Constitutional: no acute distress and obese *Routine HEENT Exam Head: Present normocephalic Eye: Present EOMI and PERRL ENT: Present mucous membranes moist *Routine Neck Exam Neck: Present supple; Absent lymphadenopathy Routine Chest/Breast/Axilla Exam Chest wall: Present tenderness (Left parasternal musculature) *Routine Respiratory Exam Respiratory: Present CTA bilaterally *Routine Cardiovascular Exam Cardiovascular: Present RRR *Routine Abdominal Exam Abdominal: Present soft, normoactive bowel sounds and tenderness (epigastric) *Routine Extremities Exam Extremities: Absent cyanosis, clubbing or edema *Routine Skin Exam Skin: Present warm; Absent rash *Routine Neurological Exam Neurological: Present alert, oriented X3 and moving all extremities; Absent altered mental status Results Data Completed and Pending Labs on day of discharge: Labs from last 24 hours 03/21/24 03/21/24 03/20/24 04:10 00:27 21:48 WBC 7.3 7.3 RBC 4.62 4.65 Hgb 14.6 14.5 Hct 43.5 44.3 MCV 94.2 95.2 MCH 31.5 H 31.2 MCHC 33.4 32.7 RDW 14.5 14.3 Plt Count 327 356 MPV 8.0 8.3 Neut % (Auto) 51.9 55.9 Lymph % (Auto) 38.1 36.2 [place] % (Auto) 7.7 6.4 Eos % (Auto) 1.5 0.8 Baso % (Auto) 0.8 0.7 Neut # (Auto) 3.8 4.1 Lymph # (Auto) 2.8 2.7 [place] # (Auto) 0.6 0.5 Eos # (Auto) 0.1 0.1 Baso # (Auto) 0.1 0.1 Sodium 139 138 Potassium 3.9 3.9 Chloride 105 105 Carbon Dioxide 28 27 Anion Gap 9.9 9.9 BUN 16 16 Creatinine 0.60 0.70 Estimated Creat Clear 148 126 Estimated GFR 107 89 Est GFR ( Amer) 129 108 Glucose 110 H D 143 H Calcium 9.5 9.4 Total Bilirubin 0.4 0.4 AST 38 H 33 D ALT 70 62 Alkaline Phosphatase 138 H 134 H Troponin I < 0.01 0.02 < 0.01 NT-Pro-B Natriuret Pep 49.4 Total Protein 7.0 7.2 Albumin 4.1 4.1 Globulin 2.9 3.1 Albumin/Globulin Ratio 1.4 1.3 DS: Diagnosis Discharge Diagnosis (1) Unstable angina: Status: Resolved Code(s): I20.0 - Unstable angina (2) Coronary artery disease: Status: Acute Code(s): I25.10 - Atherosclerotic heart disease of [place] coronary artery without angina pectoris Qualifiers: Associated angina: with unstable angina Coronary Disease-Associated Artery/Lesion type: [place] artery [place] vs. transplanted heart: [place] heart Qualified Code(s): I25.110 - Atherosclerotic heart disease of [place] coronary artery with unstable angina pectoris (3) HLD (hyperlipidemia): Status: Acute Code(s): E78.5 - Hyperlipidemia, unspecified Qualifiers: Hyperlipidemia type: unspecified Qualified Code(s): E78.5 - Hyperlipidemia, unspecified (4) Hypertension: Status: Acute Code(s): I10 - Essential (primary) hypertension Qualifiers: Hypertension type: unspecified Qualified Code(s): I10 - Essential (primary) hypertension (5) GERD (gastroesophageal reflux disease): Status: Acute Code(s): K21.9 - Gastro-esophageal reflux disease without esophagitis Qualifiers: Esophagitis presence: esophagitis presence not specified Qualified Code(s): K21.9 - Gastro-esophageal reflux disease without esophagitis (6) Diabetes: Status: Acute Code(s): E11.9 - Type 2 diabetes mellitus without complications Qualifiers: Diabetes mellitus complication status: with other specified complication 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 insulin use: without longterm use Diabetes mellitus type: type 2 Qualified Code(s): E11.69 - Type 2 diabetes mellitus with other specified complication (7) Anxiety: Status: Acute Code(s): F41.9 - Anxiety disorder, unspecified (8) Current smoker: Status: Acute Code(s): F17.200 - Nicotine dependence, unspecified, uncomplicated (9) Obesity (BMI 30-39.9): Status: Acute Code(s): E66.9 - Obesity, unspecified Meds Home Medications and Allergies Home Medications Medication Instructions Recorded Confirmed Type aspirin 81 mg tablet,delayed 81 mg PO DAILY 12/14/23 03/21/24 History release hydroxyzine pamoate 50 mg capsule 50 mg PO TIDP PRN Anxiety 12/14/23 03/21/24 History buspirone 30 mg tablet 15 mg PO HS 12/15/23 03/21/24 History metoprolol succinate 100 mg 100 mg PO DAILY #30 tabs 01/28/24 03/21/24 Rx tablet,extended release 24 hr nitroglycerin 0.4 mg sublingual 0.4 mg sublingual Q5-15M PRN chest 01/28/24 03/21/24 Rx tablet pain #30 tabs atorvastatin 80 mg tablet 80 mg PO DAILY #30 tabs 03/21/24 Rx hydrochlorothiazide 25 mg tablet 25 mg PO BID 30 days #60 tabs 03/21/24 Rx spironolactone 25 mg tablet 25 mg PO BID #60 tabs 03/21/24 Rx valsartan 160 mg tablet 160 mg PO BID 03/21/24 03/21/24 History New Prescriptions to Start Prescriptions: Pepe Mohan hydrochlorothiazide Pepe Enriquez spironolactone Pepe Enriquez Allergies Allergy/AdvReac Type Severity Reaction Status Date / Time lisinopril Allergy Verified 03/19/24 13:33 oxycodone [From Percocet] Allergy Verified 03/19/24 13:33 Sulfa (Sulfonamide Allergy Verified 03/19/24 13:33 Antibiotics) Discharge Plan Disposition Patient Disposition: Home, Self-Care Condition: Good Follow up Plan Follow up with: Víctor Reyes MD [Staff Physician] - 04/03/24 1:45 pm Laura Cobian APRN [Referring] - 03/28/24 11:30 am Prescriptions/Medication Reconciliation: New atorvastatin 80 mg tablet 80 mg PO DAILY Qty: 30 0RF hydrochlorothiazide 25 mg tablet 25 mg PO BID 30 Days Qty: 60 0RF spironolactone 25 mg tablet 25 mg PO BID Qty: 60 0RF Continued nitroglycerin 0.4 mg tablet, sublingual 0.4 mg sublingual Q5-15M PRN (Reason: chest pain) Qty: 30 0RF Rx Instructions: do not exceed 3 doses per episode metoprolol succinate 100 mg tablet extended release 24 hr 100 mg PO DAILY Qty: 30 2RF aspirin 81 mg tablet,delayed release (DR/EC) 81 mg PO DAILY hydroxyzine pamoate 50 mg Capsule 50 mg PO TIDP PRN (Reason: Anxiety) buspirone 30 mg tablet 15 mg PO HS valsartan 160 mg tablet 160 mg PO BID Patient Comments: TAKE ONE TABLET BY MOUTH TWICE DAILY Discontinued clopidogrel 75 mg tablet 75 mg PO DAILY Patient Comments: TAKE 1 TABLET BY MOUTH EVERY DAY hydralazine 25 mg tablet 25 mg PO TID PRN (Reason: HYPERTENSION WITH SBP >170) Rx Instructions: systolic > 170 Problem Reconciliation Problems Reviewed?: Yes Patient Discharge Instructions ACTIVITY: Continue current activity DIET: continue same diet Patient Instructions: DI for Chest Pain Providers Primary Care Provider: Provider,Referral Admit Provider: Pepe Enriquez Attending Provider: Pepe Enriquez
[2024-03-21] MEDS: IRBESARTAN 75MG TABLET 75 MG PO (16:40)
--- NOTE | 2024-03-25 10:48 | CARE MANAGER ---
Called and spoke with patient regarding recent discharge. She has been in the ED since discharge and states that she has a hard hematoma at cath insertion site and has a continuous headache. After discussing, she is planned to call and see about getting into cardiology sooner that scheduled f/u. She states that she has started her new medication and aware of scheduled f/u appt. She had no other concerns at time of call.
== END 2024-03-21 18:22 | disposition home or self-care (01) ==
LOC: ER 03-21 01:19 → 2ND 03-21 01:45
PROVIDERS: Internal Medicine; Nurse Practitioner Family; Admitting Provider Internal Medicine Adolescent Medicine; Emergency Provider Emergency Medicine; Visit Provider Internal Medicine Adolescent Medicine
DX: I25.110 Atherosclerotic heart disease of native coronary artery with unstable angina pectoris (principal); E78.5 Hyperlipidemia, unspecified; I10 Essential (primary) hypertension; K21.9 Gastro-esophageal reflux disease without esophagitis; E11.69 Type 2 diabetes mellitus with other specified complication; F41.9 Anxiety disorder, unspecified; F17.210 Nicotine dependence, cigarettes, uncomplicated; E66.9 Obesity, unspecified; Z68.36 Body mass index [BMI] 36.0-36.9, adult; Z95.5 Presence of coronary angioplasty implant and graft; Z79.84 Long term (current) use of oral hypoglycemic drugs; Z79.899 Other long term (current) drug therapy; I70.1 Atherosclerosis of renal artery
CPT/HCPCS: 36252; 36415; 71045; 80053; 83880; 84484; 85025; 93005; 99152; 99285; C1725; C1769; G0378; J1644; Q9967

== ENCOUNTER 2024-03-24 00:52 | Emergency (ER) | payer OTHER, SELFPAY ==
--- NOTE | 2024-03-24 00:56 | ED_ITS ---
Discharge Plan Disposition Patient Disposition: Home, Self-Care Prescriptions Prescriptions: No Action nitroglycerin 0.4 mg tablet, sublingual 0.4 mg sublingual Q5-15M PRN (Reason: chest pain) Qty: 30 0RF Rx Instructions: do not exceed 3 doses per episode metoprolol succinate 100 mg tablet extended release 24 hr 100 mg PO DAILY Qty: 30 2RF aspirin 81 mg tablet,delayed release (DR/EC) 81 mg PO DAILY hydroxyzine pamoate 50 mg Capsule 50 mg PO TIDP PRN (Reason: Anxiety) buspirone 30 mg tablet 15 mg PO HS valsartan 160 mg tablet 160 mg PO BID Patient Comments: TAKE ONE TABLET BY MOUTH TWICE DAILY atorvastatin 80 mg tablet 80 mg PO DAILY Qty: 30 0RF hydrochlorothiazide 25 mg tablet 25 mg PO BID 30 Days Qty: 60 0RF spironolactone 25 mg tablet 25 mg PO BID Qty: 60 0RF Referrals Follow up/Referrals: Laura Cobian APRN [Primary Care Provider] - See instructions Activity Restrictions/Add. Instructions Additional Instructions/Restrictions: Please follow-up with your primary care provider. Please return to the emergency department if you develop any new or worsening symptoms or become concerned for your health. Clinical Impressions Clinical Impression: Postoperative ecchymosis Headache Qualifiers: Headache chronicity pattern: acute headache Intractability: not intractable Discharge ED Provider: Eric Cutler General Adult HPI General Chief complaint: Headache Stated complaint: discoloration of genital area, vomiting, headache Time Seen by Provider: 03/24/24 00:56 History of Present Illness HPI narrative: 40-year-old female with extensive past medical history presents with multiple complaints. She had a right femoral catheterization done for renal angiogram on Sunday, 3 days ago. Today she noticed some worsening bruising, no significant swelling, no significant pain in the area. She primarily presents today because she is having a severe headache. She reports that she has migraines. Her headache started earlier today, went away on its own and now slowly returned this evening. She reports it is severe in nature, worse than her normal. She reports it is bifrontal in location, sharp in nature. She took a home migraine medication without improvement. Related Data Home Medications Medication Instructions Recorded Confirmed aspirin 81 mg tablet,delayed 81 mg PO DAILY 12/14/23 03/21/24 release hydroxyzine pamoate 50 mg capsule 50 mg PO TIDP PRN Anxiety 12/14/23 03/21/24 buspirone 30 mg tablet 15 mg PO HS 12/15/23 03/21/24 valsartan 160 mg tablet 160 mg PO BID 03/21/24 03/21/24 Previous Rx's Medication Instructions Recorded metoprolol succinate 100 mg 100 mg PO DAILY #30 tabs 01/28/24 tablet,extended release 24 hr nitroglycerin 0.4 mg sublingual 0.4 mg sublingual Q5-15M PRN chest 01/28/24 tablet pain #30 tabs atorvastatin 80 mg tablet 80 mg PO DAILY #30 tabs 03/21/24 hydrochlorothiazide 25 mg tablet 25 mg PO BID 30 days #60 tabs 03/21/24 spironolactone 25 mg tablet 25 mg PO BID #60 tabs 03/21/24 Allergies Allergy/AdvReac Type Severity Reaction Status Date / Time lisinopril Allergy Verified 03/24/24 01:13 oxycodone [From Percocet] Allergy Verified 03/24/24 01:13 Sulfa (Sulfonamide Allergy Verified 03/24/24 01:13 Antibiotics) [facility] Disclaimer: The information contained in this section may have been updated after the patient was seen, as this information can be updated by other users. Medical History Carpal tunnel syndrome of left wrist GERD (gastroesophageal reflux disease) Hypoglycemia Cervical cancer HISTORY OF Ovarian cancer HISTORY OF Hypertension Surgical History History of cardiac cath H/O LEEP History of Family History Other Family history of diabetes mellitus type II Family history of hyperlipidemia Family history of hypertension Social History (Updated 03/21/24 @ 02:21 by Marian Vera RN) Smoking Status: Former smoker alcohol intake: never substance use type: denies use current occupational status: unemployed Travel in the last 8 weeks: None household members: significant other housing: house marital status: single ROS Obtained: Yes All systems reviewed & no additional complaints except as documented Physical Exam General General appearance: alert and anxious Head Head exam: atraumatic and normocephalic Eye Eye exam: Present normal appearance, PERRL and EOMI ENT ENT exam: Present normal oropharynx and normal external ear exam Neck Neck exam: Present normal inspection and full ROM Chest Chest inspection: Present normal inspection and symmetric chest wall rise; Absent tenderness Respiratory Respiratory exam: Present normal lung sounds bilaterally; Absent respiratory distress Cardiovascular Cardiovascular exam: Present regular rate and normal rhythm Abdominal Exam Abdominal exam: Present soft; Absent distention, tenderness or guarding Bimanual exam: Present other (Right inguinal access site shows expected bruising, mild tenderness, no significant swelling.) Extremities Exam Extremities exam: Present normal inspection and normal capillary refill; Absent edema, joint swelling or cyanosis Back Exam Back exam: Present normal inspection; Absent tenderness Neurological Exam Neurological exam: Present alert and oriented X3; Absent motor sensory deficit Psychiatric Psychiatric exam: Present normal affect and normal mood Skin Skin exam: Present warm, dry and normal color Lymphatic Lymphatic Findings: no adenopathy Medical Decision Making Medical Records Medical records reviewed: Yes I reviewed the patient's medical records. Billy Inquiry Pt receiving controlled substance: No Billy was queried for this patient: No Vital Signs: 03/24/24 01:03 Temperature 97.4 F L Temperature Source Oral Pulse Rate [Left] 69 Respiratory Rate 16 Blood Pressure [Right Arm] 148/96 H Blood Pressure Mean [Right Arm] 113 02 Sat by Pulse Oximetry 98 Oxygen Delivery Method Room Air Lab Data Lab results reviewed: Yes I reviewed the patient's lab results. Orders (Tests/Meds): ED MEDICATIONS Generic Name Dose Route Start Last Admin Trade Name Freq PRN Reason Stop Dose Admin Dexamethasone Sodium Phosphate 10 mg 03/24/24 03:32 Dexamethasone 4mg/Ml 5ml Mdv PO 03/24/24 03:33 ONCE ONE Discontinued Medications Generic Name Dose Route Start Last Admin Trade Name Freq PRN Reason Stop Dose Admin Acetaminophen 1,000 mg 03/24/24 01:11 03/24/24 01:20 Acetaminophen 500mg Tab PO 03/24/24 01:12 1,000 mg ONCE ONE Administration Dexamethasone Sodium Phosphate 8 mg 03/24/24 02:54 03/24/24 03:33 Dexamethasone 4mg/Ml 1ml Vial IV 03/24/24 02:55 Not Given ONCE ONE Diphenhydramine HCl 25 mg 03/24/24 02:54 03/24/24 02:57 Diphenhydramine 50mg/Ml Vial IV 03/24/24 02:55 25 mg ONCE ONE Administration Lactated Ringer's 1,000 mls @ 999 mls/hr 03/24/24 01:15 03/24/24 01:20 Lactated Ringer's 1000 Ml Bag IV 03/24/24 02:15 999 mls/hr .Q1H1M JOEL Administration Magnesium Sulfate 2 gm in 50 mls @ 50 mls/hr 03/24/24 01:11 03/24/24 01:20 Magnesium Sulfate 2gm/50ml Premix IV 03/24/24 02:10 50 mls/hr ONCE ONE Administration Ketorolac Tromethamine 30 mg 03/24/24 01:11 03/24/24 01:20 Ketorolac 30mg/Ml Vial IV 03/24/24 01:12 30 mg ONCE ONE Administration Prochlorperazine Edisylate 10 mg 03/24/24 01:11 03/24/24 01:20 Prochlorperazine 10mg/2ml Vial IV 03/24/24 01:12 10 mg ONCE ONE Administration Medical Decision Narrative: 40-year-old female with extensive past medical history presents a couple of days after having a right femoral catheterization for renal angiogram, presents with bruising in the access site as well as migraine headache. History was obtained interactive discussion with patient, chart review, family. On arrival, patient is [afebrile, hemodynamically stable, satting appropriately, alert, oriented x4, GCS 15], moving all extremities spontaneously. Full physical exam performed and significant for normal amount of bruising in the right inguinal area with mild tenderness to palpation. Differential includes but is not limited to migraine headache, tension headache, intracranial lesion, arterial pseudoaneurysm, DVT, abscess, cellulitis, hemorrhage Patient was given 1 L fluid bolus, 2 g mag, 30 mg IV Toradol, 1 g p.o. Tylenol, 10 mg Compazine IV for symptomatic management of headache and correction of underlying abnormalities. Workup initiated including [id number] ultrasound of the right groin which shows no evidence of acute thrombosis, arterial aneurysm, abscess, cellulitis, hematoma On re-evaluation, patient [remains afebrile, HD stable.] Reports her headache is improved but still 5 out of 10. She was given additional 10 mg p.o. dexamethasone and 25 mg IV Benadryl. On further reassessment after additional interventions, patient reports pain is almost gone and is quite tolerable and feels appropriate for discharge. Blood work and CTA of the right lower extremity was considered, but deemed unnecessary due to history and exam and ultrasound findings.. Given patient history, exam and workup, patient's presentation most likely represents acute migraine headache and expected postoperative bruising. Patient was discharged in stable condition with return precautions including for signs of hematoma, DVT, arterial thrombus etc. Procedures Risk/Benefits of Procedure(s) Were Explained: Yes Limited Ultrasound Indication:: Limited soft tissue ultrasound Indication: Bruising and tenderness at right groin access site Identified structures: Skin, subcutaneous tissues, common femoral artery, superficial femoral artery, common femoral vein Location: Right inguinal fold Findings: Compressible common femoral vein without evidence of DVT, common femoral artery and superficial femoral artery without evidence of aneurysm or surrounding hematoma, no evidence of abscess or cellulitis in the soft tissues Impression: Normal limited soft tissue ultrasound Images were saved to permanent archive The study was technically adequate Soft Tissue CPT Codes: CPT Lower Extremity: 93858-80 This study was performed by me, and I personally interpreted all images/videos. Based on my clinical judgement, these images were adequate and did not necessitate further imaging. Critical Care Critical Care Time Critical Care Time: No
[2024-03-24 01:03] VITALS: BP 148/96; PULSE 69; RESP 16; TEMP 36.3; O2SAT 98; BMI 36.1
[2024-03-24] MEDS: PROCHLORPERAZINE 10MG/2ML VIAL 10 MG IV (01:20)
[2024-03-24] MEDS: KETOROLAC 30MG/ML VIAL 30 MG IV (01:20)
[2024-03-24] MEDS: LACTATED RINGERS 1000ML 1,000 ML 999 ML IV (01:20)
[2024-03-24] MEDS: ACETAMINOPHEN 500MG TAB 1000 MG PO (01:20)
[2024-03-24] MEDS: MAGNESIUM SULFATE IN WATER 2 GM/50 ML PIGGYBACK IV (01:20)
[2024-03-24 01:30] VITALS: BP 133/81; PULSE 68; RESP 20; O2SAT 97
[2024-03-24 02:00] VITALS: BP 130/91; PULSE 73; RESP 18; O2SAT 99
[2024-03-24 02:30] VITALS: BP 147/98; PULSE 76; RESP 16; O2SAT 100
[2024-03-24] MEDS: diphenhydrAMINE 50MG/ML VIAL 25 MG IV (02:57)
[2024-03-24] MEDS: DEXAMETHASONE 4MG/ML 5ML MDV 10 MG PO (03:37)
[2024-03-24 04:03] VITALS: BP 132/89; PULSE 74; RESP 18; TEMP 36.3
== END 2024-03-24 03:56 | disposition home or self-care (01) ==
PROVIDERS: Emergency Provider Emergency Medicine; PCP Nurse Practitioner
DX: G44.89 Other headache syndrome (principal); L76.32 Postprocedural hematoma of skin and subcutaneous tissue following other procedure; K21.9 Gastro-esophageal reflux disease without esophagitis
CPT/HCPCS: 96365; 96375; 99284; J3475

== ENCOUNTER 2024-03-24 16:32 | Emergency (ER) | payer OTHER, SELFPAY ==
[2024-03-24 16:33] VITALS: BP 164/109; PULSE 84; RESP 16; TEMP 36.7; O2SAT 97; BMI 36.1
--- NOTE | 2024-03-24 16:53 | HMH.EDGENADL ---
Discharge Plan Disposition Patient Disposition: Home, Self-Care Condition: Good Prescriptions Prescriptions: No Action nitroglycerin 0.4 mg tablet, sublingual 0.4 mg sublingual Q5-15M PRN (Reason: chest pain) Qty: 30 0RF Rx Instructions: do not exceed 3 doses per episode metoprolol succinate 100 mg tablet extended release 24 hr 100 mg PO DAILY Qty: 30 2RF aspirin 81 mg tablet,delayed release (DR/EC) 81 mg PO DAILY hydroxyzine pamoate 50 mg Capsule 50 mg PO TIDP PRN (Reason: Anxiety) buspirone 30 mg tablet 15 mg PO HS valsartan 160 mg tablet 160 mg PO BID Patient Comments: TAKE ONE TABLET BY MOUTH TWICE DAILY atorvastatin 80 mg tablet 80 mg PO DAILY Qty: 30 0RF hydrochlorothiazide 25 mg tablet 25 mg PO BID 30 Days Qty: 60 0RF spironolactone 25 mg tablet 25 mg PO BID Qty: 60 0RF Referrals Follow up/Referrals: Laura Cobian APRN [Primary Care Provider] - See instructions Activity Restrictions/Add. Instructions Additional Instructions/Restrictions: Follow-up with your PCP MAREK to recheck your blood sugar. You need a new prescription for new machine or have your machine calibrated. Return to ER as needed for any worsening signs or symptoms Clinical Impressions Clinical Impression: Hyperglycemia due to type 2 diabetes mellitus Instructions Patient Instructions: DI for Hyperglycemia -- Adult Discharge ED Provider: James Holcomb Adult HPI <MARCELINO Head - Last Filed: 03/24/24 18:58> General Chief complaint: Hyper/Hypoglycemia Stated complaint: High blood sugar 418 Time Seen by Provider: 03/24/24 16:48 Mode of Arrival: Ambulatory Source of Information: Patient Limitations: No Limitations Description of Symptoms (Recalled from ER Triage Doc. by RN): Patient states she followed up with her PCP today and her FS was above 400. Per her PCP she came to the er for evaluation. Patient complaint of headache and blurred vision. Upon arrival FS 275. History of Present Illness HPI narrative: Patient presents from her PCPs office after an reading of high blood glucose on her home glucometer. Patient was at routine follow-up with her PCP after ER visit overnight. Patient reported to her PCP that her blood sugar at home read over 400. Her PCP did not recheck her blood sugar but sent her to the emergency department for evaluation. On arrival patient's fingerstick in our ER was greater than 200 however her home glucometer still reported over 300. Currently she denies chest pain fever chills hemoptysis hematochezia melena nausea vomit diarrhea polyuria polydipsia. Related Data Home Medications Medication Instructions Recorded Confirmed aspirin 81 mg tablet,delayed 81 mg PO DAILY 12/14/23 03/21/24 release hydroxyzine pamoate 50 mg capsule 50 mg PO TIDP PRN Anxiety 12/14/23 03/21/24 buspirone 30 mg tablet 15 mg PO HS 12/15/23 03/21/24 valsartan 160 mg tablet 160 mg PO BID 03/21/24 03/21/24 Previous Rx's Medication Instructions Recorded metoprolol succinate 100 mg 100 mg PO DAILY #30 tabs 01/28/24 tablet,extended release 24 hr nitroglycerin 0.4 mg sublingual 0.4 mg sublingual Q5-15M PRN chest 01/28/24 tablet pain #30 tabs atorvastatin 80 mg tablet 80 mg PO DAILY #30 tabs 03/21/24 hydrochlorothiazide 25 mg tablet 25 mg PO BID 30 days #60 tabs 03/21/24 spironolactone 25 mg tablet 25 mg PO BID #60 tabs 03/21/24 Allergies Allergy/AdvReac Type Severity Reaction Status Date / Time lisinopril Allergy Verified 03/24/24 01:13 oxycodone [From Percocet] Allergy Verified 03/24/24 01:13 Sulfa (Sulfonamide Allergy Verified 03/24/24 01:13 Antibiotics) [facility] <MARCELINO Head - Last Filed: 03/24/24 18:58> [facility] Disclaimer: The information contained in this section may have been updated after the patient was seen, as this information can be updated by other users. Medical History Carpal tunnel syndrome of left wrist GERD (gastroesophageal reflux disease) Hypoglycemia Cervical cancer HISTORY OF Ovarian cancer HISTORY OF Hypertension Surgical History History of cardiac cath H/O LEEP History of Family History Other Family history of diabetes mellitus type II Family history of hyperlipidemia Family history of hypertension Social History (Updated 03/21/24 @ 02:21 by Marian Vera RN) Smoking Status: Unknown if ever smoked alcohol intake: never substance use type: denies use current occupational status: unemployed Travel in the last 8 weeks: None household members: significant other housing: house marital status: single <MARCELINO Head - Last Filed: 03/24/24 18:58> ROS Obtained: Yes Systems reviewed as appropriate & no additional complaints except as documented Physical Exam <MARCELINO Head - Last Filed: 03/24/24 18:58> General General appearance: alert and in no apparent distress Eye Eye exam: Present normal appearance ENT ENT exam: Present mucous membranes moist Respiratory Respiratory exam: Present normal lung sounds bilaterally Cardiovascular Cardiovascular exam: Present regular rate and normal rhythm Neurological Exam Neurological exam: Present alert and oriented X3 Skin Skin exam: Present warm, dry and normal color Medical Decision Making <MARCELINO Head - Last Filed: 03/24/24 18:58> Medical Records Medical records reviewed: Yes I reviewed the patient's medical records. Billy Inquiry Pt receiving controlled substance: No Vital Signs: 03/24/24 16:33 03/24/24 17:00 03/24/24 18:30 Temperature 98.0 F Temperature Source Oral Pulse Rate 81 76 Pulse Rate [Radial] 84 Respiratory Rate 16 Blood Pressure 147/97 H 173/106 H Blood Pressure [Right Arm] 164/109 H Blood Pressure Mean 113 Blood Pressure Mean [Right Arm] 127 Blood Pressure Source Blood Pressure Source [Right Arm] Automatic Cuff Blood Pressure Position Blood Pressure Position [Right Arm] Sitting 02 Sat by Pulse Oximetry 97 96 99 Oxygen Delivery Method Room Air Room Air 03/24/24 19:21 Temperature 98.3 F Temperature Source Oral Pulse Rate 74 Pulse Rate [Radial] Respiratory Rate 20 Blood Pressure 156/91 H Blood Pressure [Right Arm] Blood Pressure Mean Blood Pressure Mean [Right Arm] Blood Pressure Source Automatic Cuff Blood Pressure Source [Right Arm] Blood Pressure Position Sitting Blood Pressure Position [Right Arm] 02 Sat by Pulse Oximetry Oxygen Delivery Method Room Air Lab Data Lab results reviewed: Yes I reviewed the patient's lab results. Lab Results 03/24/24 17:33: WBC 12.5 H, RBC 4.25, Hgb 13.2, Hct 40.3, MCV 94.7, MCH 31.1, MCHC 32.8, RDW 14.5, Plt Count 353, MPV 9.0, Neut % (Auto) 86.0 H, Lymph % (Auto) 10.3, Lincoln % (Auto) 3.2, Eos % (Auto) 0.3, Baso % (Auto) 0.3, Neut # (Auto) 10.7 H, Lymph # (Auto) 1.3, Lincoln # (Auto) 0.4, Eos # (Auto) 0.0, Baso # (Auto) 0.0, Total Counted 100, Neutrophils % (Manual) 87 H, Lymphocytes % (Manual) 11, Monocytes % (Manual) 2, Platelet Estimate Normal, RBC Morphology Normal, Sodium 135 L, Potassium 4.4, Chloride 106, Carbon Dioxide 22, Anion Gap 11.4, BUN 14, Creatinine 0.50 L, Estimated Creat Clear 176, Estimated GFR 132, Est GFR ( Amer) 159, Glucose 259 H, Calcium 9.8, Magnesium 2.1, Total Bilirubin 0.7, AST 33, ALT 52, Alkaline Phosphatase 123, Total Protein 7.0, Albumin 4.2, Globulin 2.8, Albumin/Globulin Ratio 1.5, Acetone Level None detected 03/24/24 17:47: VBG pH 7.44 H, VBG pCO2 29.7 L, VBG pO2 134.3 H, VBG HCO3 19.5 L, VBG Total CO2 20.4 L, VBG O2 Saturation 98.9 H, VBG Base Excess -4.7 L, VBG Lactic Acid 2.7 H 03/24/24 18:13: Urine Color Yellow, Urine Appearance Clear, Urine pH 7.0, Ur Specific Garrison 1.015, Urine Protein Negative, Urine Glucose (UA) 3+, Urine Ketones Negative, Urine Blood Negative, Urine Nitrate Negative, Urine Bilirubin Negative, Urine Urobilinogen 0.2, Ur Leukocyte Esterase Negative, Urine RBC Occasional, Urine WBC None, Ur Squamous Epith Cells Occasional, Urine Bacteria Trace 03/24/24 17:33 03/24/24 17:33 Orders (Tests/Meds): ED MEDICATIONS Discontinued Medications Generic Name Dose Route Start Last Admin Trade Name Freq PRN Reason Stop Dose Admin Acetaminophen 1,000 mg 03/24/24 18:25 04/29/24 18:26 Acetaminophen 500mg Tab PO 03/24/24 18:26 1,000 mg ONCE ONE Administration Lactated Ringer's 1,000 mls @ 999 mls/hr 03/24/24 17:01 03/24/24 17:56 Lactated Ringer's 1000 Ml Bag IV 03/24/24 18:01 999 mls/hr .Q1H1M ONE Administration Insulin Human Lispro 20 unit 03/24/24 18:56 03/24/24 19:17 Humalog 100 Units/Ml 3ml Vial (Ssi) SQ 03/24/24 18:57 Not Given ONCE ONE ORDERS Category Date Time Status Acetone, Serum (Rapid) Stat Lab 03/24/24 17:33 Completed CBC w/Auto Diff [Complete Blood Count Auto Diff] Stat Lab 03/24/24 17:33 Completed CMP [Comprehensive Metabolic Panel] Stat Lab 03/24/24 17:33 Completed Magnesium Stat Lab 03/24/24 17:33 Completed UA [Urinalysis and Microscopic] Stat Lab 03/24/24 18:13 Completed VBG [Venous Blood Gas] Stat RT 03/24/24 17:47 Completed Medical Decision Narrative: In summary patient is a 48-year-old female who presents to the emergency department for evaluation of hyperglycemia. Patient is upper tensive with a systolic blood pressure of 164/109 with a heart rate of 84 satting at 97% on room air with respiratory rate of 16 upon arrival, and afebrile. Physical exam is unremarkable and nonfocal. Differential diagnosis includes hyperglycemia versus malfunctioning home equipment. Initial workup will be conducted with hematologic labs. Initial interventions include IV fluid bolus. Initial workup reviewed by me shows that she does have an elevated blood sugar but under 300 suggesting that her home device is not accurately recording her blood sugar currently. The remainder of her hematologic workup is nonactionable. Upon repeat evaluation had an interactive discussion with the patient and we will give her a one-time sliding scale dose of insulin until she is able to get her metformin feel which she has been out of. She will follow-up with her PCP for recheck of her blood levels and to order a new fingerstick blood sugar machine.. Given this patient is appropriate for discharge home. <James Holcomb, DO - Last Filed: 03/25/24 00:23> Vital Signs: 03/24/24 16:33 03/24/24 17:00 03/24/24 18:30 Temperature 98.0 F Temperature Source Oral Pulse Rate 81 76 Pulse Rate [Radial] 84 Respiratory Rate 16 Blood Pressure 147/97 H 173/106 H Blood Pressure [Right Arm] 164/109 H Blood Pressure Mean 113 Blood Pressure Mean [Right Arm] 127 Blood Pressure Source Blood Pressure Source [Right Arm] Automatic Cuff Blood Pressure Position Blood Pressure Position [Right Arm] Sitting 02 Sat by Pulse Oximetry 97 96 99 Oxygen Delivery Method Room Air Room Air 03/24/24 19:21 Temperature 98.3 F Temperature Source Oral Pulse Rate 74 Pulse Rate [Radial] Respiratory Rate 20 Blood Pressure 156/91 H Blood Pressure [Right Arm] Blood Pressure Mean Blood Pressure Mean [Right Arm] Blood Pressure Source Automatic Cuff Blood Pressure Source [Right Arm] Blood Pressure Position Sitting Blood Pressure Position [Right Arm] 02 Sat by Pulse Oximetry Oxygen Delivery Method Room Air Lab Data Lab Results 03/24/24 17:33: WBC 12.5 H, RBC 4.25, Hgb 13.2, Hct 40.3, MCV 94.7, MCH 31.1, MCHC 32.8, RDW 14.5, Plt Count 353, MPV 9.0, Neut % (Auto) 86.0 H, Lymph % (Auto) 10.3, Lincoln % (Auto) 3.2, Eos % (Auto) 0.3, Baso % (Auto) 0.3, Neut # (Auto) 10.7 H, Lymph # (Auto) 1.3, [place] # (Auto) 0.4, Eos # (Auto) 0.0, Baso # (Auto) 0.0, Total Counted 100, Neutrophils % (Manual) 87 H, Lymphocytes % (Manual) 11, Monocytes % (Manual) 2, Platelet Estimate Normal, RBC Morphology Normal, Sodium 135 L, Potassium 4.4, Chloride 106, Carbon Dioxide 22, Anion Gap 11.4, BUN 14, Creatinine 0.50 L, Estimated Creat Clear 176, Estimated GFR 132, Est GFR ( Amer) 159, Glucose 259 H, Calcium 9.8, Magnesium 2.1, Total Bilirubin 0.7, AST 33, ALT 52, Alkaline Phosphatase 123, Total Protein 7.0, Albumin 4.2, Globulin 2.8, Albumin/Globulin Ratio 1.5, Acetone Level None detected 03/24/24 17:47: VBG pH 7.44 H, VBG pCO2 29.7 L, VBG pO2 134.3 H, VBG HCO3 19.5 L, VBG Total CO2 20.4 L, VBG O2 Saturation 98.9 H, VBG Base Excess -4.7 L, VBG Lactic Acid 2.7 H 03/24/24 18:13: Urine Color Yellow, Urine Appearance Clear, Urine pH 7.0, Ur Specific Garrison 1.015, Urine Protein Negative, Urine Glucose (UA) 3+, Urine Ketones Negative, Urine Blood Negative, Urine Nitrate Negative, Urine Bilirubin Negative, Urine Urobilinogen 0.2, Ur Leukocyte Esterase Negative, Urine RBC Occasional, Urine WBC None, Ur Squamous Epith Cells Occasional, Urine Bacteria Trace Orders (Tests/Meds): ED MEDICATIONS Discontinued Medications Generic Name Dose Route Start Last Admin Trade Name Freq PRN Reason Stop Dose Admin Acetaminophen 1,000 mg 03/24/24 18:25 03/24/24 18:26 Acetaminophen 500mg Tab PO 03/24/24 18:26 1,000 mg ONCE ONE Administration Lactated Ringer's 1,000 mls @ 999 mls/hr 03/24/24 17:01 03/24/24 17:56 Lactated Ringer's 1000 Ml Bag IV 03/24/24 18:01 999 mls/hr .Q1H1M ONE Administration Insulin Human Lispro 20 unit 03/24/24 18:56 03/24/24 19:17 Humalog 100 Units/Ml 3ml Vial (Ssi) SQ 03/24/24 18:57 Not Given ONCE ONE ORDERS Category Date Time Status Acetone, Serum (Rapid) Stat Lab 03/24/24 17:33 Completed CBC w/Auto Diff [Complete Blood Count Auto Diff] Stat Lab 03/24/24 17:33 Completed CMP [Comprehensive Metabolic Panel] Stat Lab 03/24/24 17:33 Completed Magnesium Stat Lab 03/24/24 17:33 Completed UA [Urinalysis and Microscopic] Stat Lab 03/24/24 18:13 Completed VBG [Venous Blood Gas] Stat RT 03/24/24 17:47 Completed Medical Decision Narrative: In summary patient is a 48-year-old female who presents to the emergency department for evaluation of hyperglycemia. Patient is upper tensive with a systolic blood pressure of 164/109 with a heart rate of 84 satting at 97% on room air with respiratory rate of 16 upon arrival, and afebrile. Physical exam is unremarkable and nonfocal. Differential diagnosis includes hyperglycemia versus malfunctioning home equipment. Initial workup will be conducted with hematologic labs. Initial interventions include IV fluid bolus. Initial workup reviewed by me shows that she does have an elevated blood sugar but under 300 suggesting that her home device is not accurately recording her blood sugar currently. The remainder of her hematologic workup is nonactionable. Upon repeat evaluation had an interactive discussion with the patient and we will give her a one-time sliding scale dose of insulin until she is able to get her metformin feel which she has been out of. She will follow-up with her PCP for recheck of her blood levels and to order a new fingerstick blood sugar machine.. Given this patient is appropriate for discharge home. I was consulted by the FLASH, and we discussed the complexity of the problems being addressed. I approved the treatment and management plan for this patient's care in the Emergency Department, thus performing a substantive portion of the medical decision making. James Holcomb, DO Critical Care <MARCELINO Head - Last Filed: 03/24/24 18:58> Critical Care Time Critical Care Time: No
[2024-03-24 17:00] VITALS: BP 147/97; PULSE 81; O2SAT 96
--- NOTE | 2024-03-24 17:08 | PC.NURSE ---
Notified RT of VBG order
--- NOTE | 2024-03-24 17:46 | PC.NURSE ---
respiratory aware of vbg order, blood in lab
[2024-03-24 17:52] LABS: VBG Base Excess -4.7 mmol/L (-2.4-2.3); VBG HCO3 19.5 mmol/L (23-30); VBG Oxygen Saturation 98.9 % (50-70); VBG PCO2 29.7 mmol/L (35-51); VBG PH 7.44 mmol/L (7.31-7.41); VBG PO2 134.3 mmol/L (28-40); VBG Total CO2 20.4 mmol/L (23-27)
[2024-03-24 17:53] LABS: Lactate Venous 2.7 mmol/L (0.4-2.0)
[2024-03-24] MEDS: LACTATED RINGERS 1000ML 1,000 ML 999 ML IV (17:56)
[2024-03-24 18:24] LABS: Microscopic, Urine URINE MICROSCOPIC (MICROSCOPIC)
[2024-03-24] MEDS: ACETAMINOPHEN 500MG TAB 1000 MG PO (18:26)
[2024-03-24 18:28] LABS: Appearance,Urine CLEAR (Clear); Bilirubin,Urine Negative (Negative); Blood, Urine Negative (Negative); Color,Urine YELLOW (Yellow); Glucose,Urine (UA) 3+ (Negative); Ketones,Urine Negative (Negative); Leukocyte Esterase,Urine Negative (Negative); Nitrate,Urine Negative (Negative); Protein,Urine Negative (Negative); Specific Gravity, Urine 1.015 (1.005-1.030); Urobilinogen,Urine 0.2 EU/dl (0.2)
[2024-03-24 18:29] LABS: Chloride 106 mmol/L (98-107)
[2024-03-24 18:30] VITALS: BP 173/106; PULSE 76; O2SAT 99
[2024-03-24 18:30] LABS: Potassium 4.4 mmoL/L (3.5-5.1); Sodium 135 mmol/L (136-145)
[2024-03-24 18:32] LABS: Alanine Aminotransferase 52 U/L (12-78); Aspartate Amino Transferase 33 U/L (14-36); Blood Urea Nitrogen 14 mg/dl (7-17); Creatinine Clearance Estimated 176 mL/min (50-200); Estimated Glomerular Filt Rate 132 ml/min (>60); GFR (African American) 159 ML/MIN (>60)
[2024-03-24 18:33] LABS: Albumin Level 4.2 g/dl (3.5-5.0); Albumin/Globulin Ratio 1.5 (1.1-1.8); Alkaline Phosphatase 123 U/L (38-126); Anion Gap 11.4 mEq/L (5-15); Bilirubin,Total 0.7 mg/dl (0.2-1.3); Calcium 9.8 mg/dl (8.4-10.2); Carbon Dioxide 22 mmol/L (22.0-30.0); Globulin 2.8 g/dL (1.3-3.2); Glucose 259 mg/dl (74-100); Magnesium 2.1 mg/dl (1.6-2.3)
[2024-03-24 18:35] LABS: Basophils % 0.3 % (0.1-2.0); Eosinophils % 0.3 % (0.1-12.0); Hematocrit 40.3 % (37.0-47.0); Hemoglobin 13.2 g/dL (12.2-16.2); Lymphocytes # 1.3 K/mm3 (0.7-4.5); Lymphocytes % 10.3 % (10-50); Mean Corpuscular HGB Conc 32.8 g/dL (31.8-35.4); Mean Corpuscular Hemoglobin 31.1 pg (27.0-31.2); Mean Corpuscular Volume 94.7 fl (81-99); Monocytes # 0.4 K/mm3 (0.1-1.0); Monocytes % 3.2 % (1.7-9.3); Neutrophils # 10.7 K/mm3 (1.8-7.8); Platelet Count 353 K/mm3 (142-424); Red Blood Count 4.25 M/mm3 (4.20-5.40); Red Cell Distribution Width 14.5 % (11.5-17.5); White Blood Count 12.5 K/mm3 (4.8-10.8)
[2024-03-24 18:36] LABS: MANUAL DIFFERENTIAL MANUAL DIFFERENTIAL (MANUAL DIFF)
[2024-03-24 18:44] LABS: Acetone, Serum (Rapid) None Detected (None Detect)
[2024-03-24 18:47] LABS: Bacteria,Urine Trace /lpf; RBC,Urine Occasional #/hpf (0-3); Squamous Epithelial Cell,Urine Occasional #/hpf (0-5)
[2024-03-24 18:57] LABS: Lymphocytes % 11 % (10-50); Monocytes % 2 % (2-9); Neutrophils % 87 % (42-76); Total Cells Counted 100
[2024-03-24 18:58] LABS: Platelet Estimate Normal; RBC Morphology Normal
--- NOTE | 2024-03-24 19:17 | PC.NURSE ---
FSBS 169, so per provider we will not give SS insulin dose of 20u.
[2024-03-24 19:21] VITALS: BP 156/91; PULSE 74; RESP 20; TEMP 36.8; O2SAT 97
== END 2024-03-24 19:21 | disposition home or self-care (01) ==
PROVIDERS: Physician Assistant; Emergency Provider Emergency Medicine; PCP Nurse Practitioner
DX: E11.65 Type 2 diabetes mellitus with hyperglycemia (principal); K21.9 Gastro-esophageal reflux disease without esophagitis; I10 Essential (primary) hypertension; Z79.84 Long term (current) use of oral hypoglycemic drugs
CPT/HCPCS: 80053; 81001; 82009; 82803; 83735; 85007; 85025; 96360; 99284

== ENCOUNTER 2024-03-26 15:45 | Outpatient (CLI) | payer OTHER, SELFPAY ==
--- NOTE | 2024-03-26 15:48 | CA_ITS ---
FINAL REPORT CLINICAL HISTORY: Right groin pain, post LHC on 03/21,BRUISING RIGHT GROIN FINDINGS: ULTRASOUND VASCULAR ARTERIAL LOWER EXTREMITY LIMITED, RIGHT Limited Doppler evaluation of the groin demonstrates no evidence of pseudoaneurysm. There is no evidence of AV fistula. There is a heterogeneous structure in the subcutaneous tissues, likely a hematoma. IMPRESSION: No evidence of pseudoaneurysm. Reviewed, Interpreted and Dictated by Zeyad Salvador MD Transcribed by Magdalena Castaneda Authenticated and [facility]
== END 2024-03-26 23:59 | disposition home or self-care (01) ==
LOC: RT 15:46
PROVIDERS: PCP Nurse Practitioner; Visit Provider Nurse Practitioner
DX: R10.31 Right lower quadrant pain (principal); G89.18 Other acute postprocedural pain; Y84.0 Cardiac catheterization as the cause of abnormal reaction of the patient, or of later complication, without mention of misadventure at the time of the procedure
CPT/HCPCS: 93926

== ENCOUNTER 2024-04-24 15:29 | Emergency (ER) | payer OTHER, SELFPAY ==
[2024-04-24 15:30] VITALS: BP 153/94; PULSE 79; RESP 20; TEMP 36.6; O2SAT 99; BMI 35.3
[2024-04-24 16:04] LABS: Apearance,Urine Clear (Clear); Bilirubin,Urine Negative (Negative); Blood, Urine Negative (Negative); Color,Urine Yellow (Yellow); Glucose,Urine (UA) Negative (Negative); Ketones,Urine Negative (Negative); Protein,Urine Negative (Negative); UTC Leukocyte Esterase,Urine Negative (Negative); UTC Nitrate,Urine Negative (Negative); Urobilinogen,Urine 0.2 EU/dl (0.2)
--- NOTE | 2024-04-24 16:17 | ED_ITS ---
Discharge Plan Disposition Patient Disposition: Home, Self-Care Condition: Good Prescriptions Prescriptions: New cephalexin 500 mg tablet 500 mg PO BID 5 Days Qty: 10 0RF No Action ranolazine 500 mg tablet extended release 12 hr 500 mg PO BID Qty: 60 5RF isosorbide mononitrate 30 mg tablet extended release 24 hr 30 mg PO DAILY Qty: 30 2RF nitroglycerin 0.4 mg tablet, sublingual 0.4 mg sublingual Q5-15M PRN (Reason: chest pain) Qty: 30 0RF Rx Instructions: do not exceed 3 doses per episode metoprolol succinate 100 mg tablet extended release 24 hr 100 mg PO DAILY Qty: 30 2RF metformin 500 mg tablet 500 mg PO BID Patient Comments: TAKE ONE TABLET BY MOUTH TWICE DAILY with meals hydralazine 25 mg tablet 25 mg PO TID PRN Patient Comments: TAKE ONE TABLET BY MOUTH THREE TIMES DAILY NEEDED FOR HYPERTENSION; SYSTOLIC > 170 clopidogrel 75 mg tablet 75 mg PO DAILY Patient Comments: TAKE 1 TABLET BY MOUTH EVERY DAY potassium chloride 20 mEq tablet,ER particles/crystals 20 meq PO BID Patient Comments: TAKE ONE TABLET BY MOUTH TWICE DAILY pantoprazole 40 mg tablet,delayed release (DR/EC) PO Patient Comments: TAKE ONE TABLET BY MOUTH EVERY DAY topiramate 50 mg tablet 50 mg PO DAILY Patient Comments: TAKE 1 TABLET BY MOUTH EVERY DAY. CALL AND MAKE AN APPOINTMENT WITH NE Guerrero 36,000-114,000- 180,000 unit capsule,delayed release(DR/EC) 1 cap PO BID Rx Instructions: administer with meals and/or snacks Emgality Syringe 120 mg/mL syringe 120 mg SQ QMONTH Qty: 1 5RF Ubrelvy 100 mg tablet 100 mg PO ONCE MDD 200 mg PRN (Reason: Episodic migraine) Qty: 10 5RF Rx Instructions: 1 tablet p.o. as needed at onset of migraine. May repeat after 2 hours if recurrent symptoms valsartan 160 mg tablet See Rx Instructions .ROUTE .COMPLEX Qty: 180 3RF Dose Instruction: TAKE ONE TABLET BY MOUTH TWICE DAILY Rx Instructions: TAKE ONE TABLET BY MOUTH TWICE DAILY aspirin 81 mg tablet,delayed release (DR/EC) 81 mg PO DAILY hydroxyzine pamoate 50 mg Capsule 50 mg PO TIDP PRN (Reason: Anxiety) buspirone 30 mg tablet 15 mg PO HS atorvastatin 80 mg tablet 80 mg PO DAILY Qty: 30 0RF hydrochlorothiazide 25 mg tablet 25 mg PO BID 30 Days Qty: 60 0RF spironolactone 25 mg tablet 25 mg PO BID Qty: 60 0RF Referrals Follow up/Referrals: Laura Cobian APRN [Primary Care Provider] - See instructions Activity Restrictions/Add. Instructions Additional Instructions/Restrictions: Make sure that you are drinking plenty of fluids Make sure to follow up with your Family Doctor Make sure to check back in the next 3 days to see if your Urine culture results are back and the results Straight to ER if any life threatening symptoms Clinical Impressions Clinical Impression: Urinary tract infection symptoms Instructions Patient Instructions: Cephalexin Discharge ED Provider: Ana Stafford [facility] General Stated complaint: poss UTI Mode of Arrival: Ambulatory Source of Information: Patient Limitations: No Limitations Time Seen by Provider: 04/24/24 16:17 Description of Symptoms (Recalled from Triage Doc. by RN): PATIENT C/O LEFT SIDE PAIN WITH URINATION THAT STARTED TODAY HEENT Symptoms (Recalled from RN notes): No Resp Symptoms (Recalled from RN notes): No Skin Symptoms (Recalled from RN notes): No MS Symptoms (Recalled from RN notes): No Functional Status (Recalled from RN notes): WNL History of Present Illness Provider Complaint: Patient states that she has been having an achy like feeling in her left side and feeling of urgency and frequency States that she has had kidney stones in the past but this feels different than it does then States that she has also had some burning with urination so she came in today to get it checked Related Data Home Medications Medication Instructions Recorded Confirmed aspirin 81 mg tablet,delayed 81 mg PO DAILY 12/14/23 04/03/24 release hydroxyzine pamoate 50 mg capsule 50 mg PO TIDP PRN Anxiety 12/14/23 04/03/24 buspirone 30 mg tablet 15 mg PO HS 12/15/23 04/03/24 clopidogrel 75 mg tablet 75 mg PO DAILY 03/25/24 04/03/24 hydralazine 25 mg tablet 25 mg PO TID PRN 03/25/24 04/03/24 huvmcy-jdveawiu-btyhobu 1 cap PO BID 03/25/24 04/03/24 36,000-114,000-180,000 unit capsule,delay rel (Creon) metformin 500 mg tablet 500 mg PO BID 03/25/24 04/03/24 pantoprazole 40 mg tablet,delayed mg PO 03/25/24 04/03/24 release potassium chloride 20 mEq 20 meq PO BID 03/25/24 04/03/24 tablet,extended release(part/cryst) topiramate 50 mg tablet 50 mg PO DAILY 03/25/24 04/03/24 Previous Rx's Medication Instructions Recorded metoprolol succinate 100 mg 100 mg PO DAILY #30 tabs 01/28/24 tablet,extended release 24 hr nitroglycerin 0.4 mg sublingual 0.4 mg sublingual Q5-15M PRN chest 01/28/24 tablet pain #30 tabs atorvastatin 80 mg tablet 80 mg PO DAILY #30 tabs 03/21/24 hydrochlorothiazide 25 mg tablet 25 mg PO BID 30 days #60 tabs 03/21/24 spironolactone 25 mg tablet 25 mg PO BID #60 tabs 03/21/24 galcanezumab-gnlm 120 mg/mL 120 mg SQ QMONTH #1 mL 03/25/24 subcutaneous syringe (Emgality) ubrogepant 100 mg tablet (Ubrelvy) 100 mg PO ONCE PRN Episodic 03/25/24 migraine #10 tabs isosorbide mononitrate 30 mg 30 mg PO DAILY #30 tabs 04/03/24 tablet,extended release 24 hr ranolazine 500 mg tablet,extended 500 mg PO BID #60 tabs 04/03/24 release,12 hr valsartan 160 mg tablet See Rx Instructions .Route 04/07/24 .COMPLEX #180 tabs cephalexin 500 mg tablet 500 mg PO BID 5 days #10 tabs 04/24/24 Allergies Allergy/AdvReac Type Severity Reaction Status Date / Time lisinopril Allergy Verified 04/03/24 13:48 oxycodone [From Percocet] Allergy Verified 04/03/24 13:48 Sulfa (Sulfonamide Allergy Verified 04/03/24 13:48 Antibiotics) Worker's Comp Is this a Worker's Comp case?: No [facility] Disclaimer: The information contained in this section may have been updated after the patient was seen, as this information can be updated by other users. 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, 2001, status post laser surgeries Brain fog Known side effect of topiramate History of nephrolithiasis Least 3?5 kidney stones, recommend avoiding topiramate Family history of brain aneurysm Both mother and paternal grandfather, patient denies prior aneurysm screening Carpal tunnel syndrome of left wrist GERD (gastroesophageal reflux disease) Hypoglycemia Cervical cancer HISTORY OF Ovarian cancer HISTORY OF Hypertension Surgical History History of cardiac cath H/O LEEP History of Family History Other Family history of diabetes mellitus type II Family history of hyperlipidemia Family history of hypertension Social History Smoking Status: Unknown if ever smoked alcohol intake: never substance use type: denies use current occupational status: unemployed Travel in the last 8 weeks: None household members: significant other housing: house marital status: single ROS Obtained: Yes All systems reviewed & no additional complaints except as documented and Yes Systems reviewed as appropriate & no additional complaints except as documented Constitutional Constitutional: Reports system reviewed and no additional complaints, except as documented, Reports as per HPI, Denies body ache, Denies chills and Denies fever(s) ENT Ears, Nose, Mouth, and Throat: Reports system reviewed and no additional complaints, except as documented and Reports as per HPI Cardiovascular Cardiovascular: Reports system reviewed and no additional complaints, except as documented and Reports as per HPI Respiratory Respiratory: Reports system reviewed and no additional complaints, except as documented and Reports as per HPI Gastrointestinal Gastrointestingal: Reports system reviewed and no additional complaints, except as documented and as per HPI; Denies abdominal pain, nausea or vomiting Genitourinary Female Genitourinary: Reports system reviewed and no additional complaints, except as documented, Reports as per HPI, Reports dysuria, Reports flank pain, Reports urinary frequency and Reports urinary urgency Musculoskeletal Musculoskeletal: Reports system reviewed and no additional complaints, except as documented and Reports as per HPI Integumentary/Breasts Skin/Breast: Reports system reviewed and no additional complaints, except as documented and Reports as per HPI Neurologic Neurologic: Reports system reviewed and no additional complaints, except as documented and Reports as per HPI Physical Exam General General appearance: alert and in no apparent distress Respiratory Respiratory exam: Present normal lung sounds bilaterally; Absent respiratory distress or wheezes Cardiovascular Cardiovascular exam: Present regular rate, normal rhythm and normal heart sounds Abdominal Exam Abdominal exam: Present soft and normal bowel sounds; Absent distention or tenderness Neurological Exam Neurological exam: Present alert, oriented X3 and normal gait Medical Decision Making Billy Inquiry Pt receiving controlled substance: No Billy was queried for this patient: No Vital Signs: 04/24/24 15:30 Temperature 97.9 F Temperature Source Oral Pulse Rate [Left Brachial] 79 Respiratory Rate 20 Blood Pressure [Left Arm] 153/94 H Blood Pressure Mean [Left Arm] 113 Blood Pressure Source [Left Arm] Automatic Cuff Blood Pressure Position [Left Arm] Sitting 02 Sat by Pulse Oximetry 99 Oxygen Delivery Method Room Air Lab Data Lab results reviewed: Yes I reviewed the patient's lab results. Lab Results 04/24/24 16:00: Urine Color Yellow, Urine Appearance Clear, Urine pH 7.0, Ur Specific [place] 1.020, Urine Protein Negative, Urine Glucose (UA) Negative, Urine Ketones Negative, Urine Blood Negative, Urine Nitrate Negative, Urine Bilirubin Negative, Urine Urobilinogen 0.2, Ur Leukocyte Esterase Negative
[2024-04-24 16:37] VITALS: BP 153/94; PULSE 79; RESP 20; TEMP 36.6; O2SAT 99
== END 2024-04-24 16:43 | disposition home or self-care (01) ==
PROVIDERS: Emergency Provider Nurse Practitioner; PCP Nurse Practitioner
DX: N39.0 Urinary tract infection, site not specified (principal); B96.89 Other specified bacterial agents as the cause of diseases classified elsewhere; R30.0 Dysuria; M54.59 Other low back pain; R35.0 Frequency of micturition
CPT/HCPCS: 81003; 87086; 99204; 99212; G0463

== ENCOUNTER 2024-06-19 18:34 | Emergency (ER) | payer OTHER, SELFPAY ==
[2024-06-19 18:46] VITALS: BP 151/91; PULSE 71; RESP 16; TEMP 36.6; O2SAT 99; BMI 36.3
--- NOTE | 2024-06-19 18:50 | EXP.UTC ---
Discharge Plan Disposition Patient Disposition: Home, Self-Care Condition: Good Prescriptions Prescriptions: New triamcinolone acetonide 0.025 % ointment 1 applic topical TID PRN (Reason: itching) Qty: 15 0RF Rx Instructions: apply thin layer to areas as directed No Action ranolazine 500 mg tablet extended release 12 hr 500 mg PO BID Qty: 60 5RF isosorbide mononitrate 30 mg tablet extended release 24 hr 30 mg PO DAILY Qty: 30 2RF amlodipine 5 mg tablet 5 mg PO DAILY Qty: 30 5RF nitroglycerin 0.4 mg tablet, sublingual 0.4 mg sublingual Q5-15M PRN (Reason: chest pain) Qty: 30 0RF Rx Instructions: do not exceed 3 doses per episode clopidogrel 75 mg tablet 75 mg PO DAILY Patient Comments: TAKE 1 TABLET BY MOUTH EVERY DAY potassium chloride 20 mEq tablet,ER particles/crystals 20 meq PO BID Patient Comments: TAKE ONE TABLET BY MOUTH TWICE DAILY pantoprazole 40 mg tablet,delayed release (DR/EC) PO Patient Comments: TAKE ONE TABLET BY MOUTH EVERY DAY topiramate 50 mg tablet 50 mg PO DAILY Patient Comments: TAKE 1 TABLET BY MOUTH EVERY DAY. CALL AND MAKE AN APPOINTMENT WITH DISCARD REMAINDER. VIKA Guerrero 36,000-114,000- 180,000 unit capsule,delayed release(DR/EC) 1 cap PO BID Rx Instructions: administer with meals and/or snacks Emgality Syringe 120 mg/mL syringe 120 mg SQ QMONTH Qty: 1 5RF Ubrelvy 100 mg tablet 100 mg PO ONCE MDD 200 mg PRN (Reason: Episodic migraine) Qty: 10 5RF Rx Instructions: 1 tablet p.o. as needed at onset of migraine. May repeat after 2 hours if recurrent symptoms valsartan 160 mg tablet See Rx Instructions .ROUTE .COMPLEX Qty: 180 3RF Dose Instruction: TAKE ONE TABLET BY MOUTH TWICE DAILY Rx Instructions: TAKE ONE TABLET BY MOUTH TWICE DAILY metoprolol succinate 100 mg tablet extended release 24 hr 100 mg PO DAILY Qty: 90 2RF hydralazine 25 mg tablet 25 mg PO TID PRN (Reason: hypertension) Qty: 90 3RF Patient Comments: TAKE ONE TABLET BY MOUTH THREE TIMES DAILY NEEDED FOR HYPERTENSION; SYSTOLIC > 170 cephalexin 500 mg tablet 500 mg PO BID 5 Days Qty: 10 0RF aspirin 81 mg tablet,delayed release (DR/EC) 81 mg PO DAILY hydroxyzine pamoate 50 mg Capsule 50 mg PO TIDP PRN (Reason: Anxiety) buspirone 30 mg tablet 15 mg PO HS atorvastatin 80 mg tablet 80 mg PO DAILY Qty: 30 0RF hydrochlorothiazide 25 mg tablet 25 mg PO BID 30 Days Qty: 60 0RF spironolactone 25 mg tablet 25 mg PO BID Qty: 60 0RF Referrals Follow up/Referrals: Laura Cobian APRN [Primary Care Provider] - See instructions Activity Restrictions/Add. Instructions Additional Instructions/Restrictions: Oatmeal bathes may help to soothe the skin Use topical ointment as prescribed Over the counter Benadryl may help with itching Follow up with your Family Doctor if no improvement or any worsening of symptoms Clinical Impressions Clinical Impression: Rash and nonspecific skin eruption Instructions Patient Instructions: DI for Rash, Triamcinolone Topical Print Language Print Language: [place] Discharge ED Provider: Ana Stafford [facility] [place] HPI General Stated complaint: Red bumps all over body, hurt,itches Mode of Arrival: Ambulatory Source of Information: Patient Limitations: No Limitations Time Seen by Provider: 06/19/24 18:50 Description of Symptoms (Recalled from Triage Doc. by RN): Patient reports red bumps periodically on her body that itch and hurt. HEENT Symptoms (Recalled from RN notes): No Resp Symptoms (Recalled from RN notes): No Skin Symptoms (Recalled from RN notes): Yes MS Symptoms (Recalled from RN notes): No Functional Status (Recalled from RN notes): wnl History of Present Illness Provider Complaint: Patient states that she thinks she has alfred bitten by some type of bug States that she has a couple places on her legs, abdomen shoulder and back that is red raised and itchy and joseph when she scratches them States this evening it was bothering her so she came in to get it checked Related Data Home Medications ?Medication ?Instructions ?Recorded ?Confirmed aspirin 81 mg tablet,delayed 81 mg PO DAILY 12/14/23 05/26/24 release hydroxyzine pamoate 50 mg capsule 50 mg PO TIDP PRN Anxiety 12/14/23 05/26/24 buspirone 30 mg tablet 15 mg PO HS 12/15/23 05/26/24 clopidogrel 75 mg tablet 75 mg PO DAILY 03/25/24 05/26/24 amonwo-mmdemxrl-qmrplyl 1 cap PO BID 03/25/24 05/26/24 36,000-114,000-180,000 unit capsule,delay rel (Creon) pantoprazole 40 mg tablet,delayed mg PO 03/25/24 05/26/24 release potassium chloride 20 mEq 20 meq PO BID 03/25/24 05/26/24 tablet,extended release(part/cryst) topiramate 50 mg tablet 50 mg PO DAILY 03/25/24 05/26/24 Previous Rx's ?Medication ?Instructions ?Recorded nitroglycerin 0.4 mg sublingual 0.4 mg sublingual Q5-15M PRN chest 01/28/24 tablet pain #30 tabs atorvastatin 80 mg tablet 80 mg PO DAILY #30 tabs 03/21/24 hydrochlorothiazide 25 mg tablet 25 mg PO BID 30 days #60 tabs 03/21/24 spironolactone 25 mg tablet 25 mg PO BID #60 tabs 03/21/24 galcanezumab-gnlm 120 mg/mL 120 mg SQ QMONTH #1 mL 03/25/24 subcutaneous syringe (Emgality) ubrogepant 100 mg tablet (Ubrelvy) 100 mg PO ONCE PRN Episodic 03/25/24 migraine #10 tabs isosorbide mononitrate 30 mg 30 mg PO DAILY #30 tabs 04/03/24 tablet,extended release 24 hr ranolazine 500 mg tablet,extended 500 mg PO BID #60 tabs 04/03/24 release,12 hr valsartan 160 mg tablet See Rx Instructions .Route 04/07/24 .COMPLEX #180 tabs cephalexin 500 mg tablet 500 mg PO BID 5 days #10 tabs 04/24/24 hydralazine 25 mg tablet 25 mg PO TID PRN hypertension #90 05/14/24 tabs metoprolol succinate 100 mg 100 mg PO DAILY #90 tabs 05/14/24 tablet,extended release 24 hr amlodipine 5 mg tablet 5 mg PO DAILY #30 tabs 05/26/24 triamcinolone acetonide 0.025 % 1 applic topical TID PRN itching 06/19/24 topical ointment #15 grams Allergies Allergy/AdvReac Type Severity Reaction Status Date / Time lisinopril Allergy Verified 05/26/24 14:41 oxycodone [From Percocet] Allergy Verified 05/26/24 14:41 Sulfa (Sulfonamide Allergy Verified 05/26/24 14:41 Antibiotics) Worker's Comp Is this a Worker's Comp case?: No [facility] Disclaimer: The information contained in this section may have been updated after the patient was seen, as this information can be updated by other users. 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, 2001, status post laser surgeries Brain fog Known side effect of topiramate History of nephrolithiasis Least 3?5 kidney stones, recommend avoiding topiramate Family history of brain aneurysm Both mother and paternal grandfather, patient denies prior aneurysm screening Carpal tunnel syndrome of left wrist GERD (gastroesophageal reflux disease) Hypoglycemia Cervical cancer HISTORY OF Ovarian cancer HISTORY OF Hypertension Surgical History History of cardiac cath H/O LEEP History of Family History Other Family history of diabetes mellitus type II Family history of hyperlipidemia Family history of hypertension Social History Smoking Status: Unknown if ever smoked alcohol intake: never substance use type: denies use current occupational status: unemployed Travel in the last 8 weeks: None household members: significant other housing: house marital status: single ROS Obtained: Yes All systems reviewed & no additional complaints except as documented and Yes Systems reviewed as appropriate & no additional complaints except as documented Constitutional Constitutional: Reports system reviewed and no additional complaints, except as documented and Reports as per HPI ENT Ears, Nose, Mouth, and Throat: Reports system reviewed and no additional complaints, except as documented Cardiovascular Cardiovascular: Reports system reviewed and no additional complaints, except as documented and Reports as per HPI Respiratory Respiratory: Reports system reviewed and no additional complaints, except as documented and Reports as per HPI Gastrointestinal Gastrointestingal: Reports system reviewed and no additional complaints, except as documented and as per HPI Integumentary/Breasts Skin/Breast: Reports system reviewed and no additional complaints, except as documented, Reports as per HPI and Reports other Comments: bug bites on arms, leg, back and shoulder that is itchy and joseph Physical Exam General General appearance: alert and in no apparent distress ENT ENT exam: Present mucous membranes moist Respiratory Respiratory exam: Present normal lung sounds bilaterally; Absent respiratory distress or wheezes Cardiovascular Cardiovascular exam: Present regular rate, normal rhythm and normal heart sounds Neurological Exam Neurological exam: Present alert, oriented X3 and normal gait Skin Skin exam: Present rash (red raised bump like areas on legs arms back and abdomen appears like insect bites no hives, no drainage or warmth) Medical Decision Making Billy Inquiry Pt receiving controlled substance: No Billy was queried for this patient: No Vital Signs: 06/19/24 18:46 Temperature 97.9 F Temperature Source Oral Pulse Rate [Radial] 71 Respiratory Rate 16 Blood Pressure [Right Arm] 151/91 H Blood Pressure Mean [Right Arm] 111 Blood Pressure Source [Right Arm] Automatic Cuff Blood Pressure Position [Right Arm] Sitting 02 Sat by Pulse Oximetry 99 Oxygen Delivery Method Room Air
[2024-06-19 19:16] VITALS: BP 151/91; PULSE 71; RESP 16; TEMP 36.6; O2SAT 99
== END 2024-06-19 19:16 | disposition home or self-care (01) ==
PROVIDERS: Emergency Provider Nurse Practitioner; PCP Nurse Practitioner
DX: R21 Rash and other nonspecific skin eruption (principal)
CPT/HCPCS: 99212; 99214; G0463

== ENCOUNTER 2024-07-09 12:15 | Outpatient (CLI) | payer OTHER, SELFPAY ==
[2024-07-09 12:44] LABS: Basophils # 0.1 K/mm3 (0-0.2); Basophils % 1.1 % (0.1-2.0); Eosinophils # 0.1 K/mm3 (0.0-0.4); Eosinophils % 1.3 % (0.1-12.0); Hematocrit 44.9 % (37.0-47.0); Hemoglobin 14.5 g/dL (12.2-16.2); Lymphocytes # 2.1 K/mm3 (0.7-4.5); Lymphocytes % 34.8 % (10-50); Mean Corpuscular HGB Conc 32.4 g/dL (31.8-35.4); Mean Corpuscular Hemoglobin 31.5 pg (27.0-31.2); Mean Corpuscular Volume 97.2 fl (81-99); Monocytes # 0.4 K/mm3 (0.1-1.0); Monocytes % 6.7 % (1.7-9.3); Neutrophils # 3.4 K/mm3 (1.8-7.8); Neutrophils % 56.1 % (37.0-80.0); Platelet Count 372 K/mm3 (142-424); Red Blood Count 4.62 M/mm3 (4.20-5.40); Red Cell Distribution Width 14.4 % (11.5-17.5)
[2024-07-09 13:19] LABS: C-Reactive Protein 1.3 mg/L (0-4)
[2024-07-11 14:16] LABS: Anti-DNA (DS) Ab Qn <1 IU/mL (0-9)
[2024-07-15 18:06] LABS: D001-IgE D pteronyssinus <0.10 kU/L (Class 0); D002-IgE D farinae <0.10 kU/L (Class 0); E001-IgE Cat Dander <0.10 kU/L (Class 0); E005-IgE Dog Dander <0.10 kU/L (Class 0); E072-IgE Mouse Urine <0.10 kU/L (Class 0); G002-IgE Bermuda Grass <0.10 kU/L (Class 0); G006-IgE Timothy Grass <0.10 kU/L (Class 0); I006-IgE Cockroach, German <0.10 kU/L (Class 0); Immunoglobulin E, Total 84 IU/mL (6-495); M001-IgE Penicillium chrysogen <0.10 kU/L (Class 0); M002-IgE Cladosporium herbarum <0.10 kU/L (Class 0); M003-IgE Aspergillus fumigatus <0.10 kU/L (Class 0); M006-IgE Alternaria alternata <0.10 kU/L (Class 0); T001-IgE Maple/Box Elder <0.10 kU/L (Class 0); T003-IgE Common Silver Birch <0.10 kU/L (Class 0); T006-IgE Cedar, Mountain <0.10 kU/L (Class 0); T007-IgE Oak, White <0.10 kU/L (Class 0); T008-IgE Elm, American <0.10 kU/L (Class 0); T010-IgE Walnut <0.10 kU/L (Class 0); T011-IgE Maple Leaf Sycamore <0.10 kU/L (Class 0); T014-IgE Cottonwood <0.10 kU/L (Class 0); T015-IgE Ash, White <0.10 kU/L (Class 0); T022-IgE Pecan, Hickory <0.10 kU/L (Class 0); T070-IgE White Mulberry <0.10 kU/L (Class 0); W001-IgE Ragweed, Short <0.10 kU/L (Class 0); W011-IgE Thistle, Russian <0.10 kU/L (Class 0); W014-IgE Pigweed, Common <0.10 kU/L (Class 0); W018-IgE Sheep Sorrel <0.10 kU/L (Class 0)
== END 2024-07-09 23:59 | disposition home or self-care (01) ==
LOC: LAB 12:16
PROVIDERS: PCP Nurse Practitioner; Visit Provider Internal Medicine Pulmonary Disease
DX: J84.9 Interstitial pulmonary disease, unspecified (principal); R06.09 Other forms of dyspnea; J45.909 Unspecified asthma, uncomplicated; J30.9 Allergic rhinitis, unspecified
CPT/HCPCS: 36415; 82785; 85025; 86003; 86140; 86225

== ENCOUNTER 2024-09-17 13:05 | Outpatient (CLI) | payer OTHER, SELFPAY ==
[2024-09-17 13:50] VITALS: PULSE 74; PULSE 78
[2024-09-17] MEDS: ALBUTEROL 0.083% 2.5 MG/3 ML NEB IH (13:50)
== END 2024-09-17 23:59 | disposition home or self-care (01) ==
LOC: RT 13:06
PROVIDERS: PCP Nurse Practitioner; Visit Provider Internal Medicine Pulmonary Disease
DX: R06.09 Other forms of dyspnea (principal)
CPT/HCPCS: 94010; 94640; 94727; 94729; J7613

== ENCOUNTER 2024-09-18 15:36 | Emergency (ER) | payer OTHER, SELFPAY ==
[2024-09-18] VITALS (9 sets, daily range): BP systolic 119–163; BP diastolic 77–103; PULSE 65–74; RESP 13–19; TEMP 36.9; O2SAT 96–100; BMI 36.3
--- NOTE | 2024-09-18 15:34 | ECG_ITS ---
APPROVED REPORT Exam: Resting ECG HR:67 bpm ECG Measurements Heart Rate 67 AXES NE 140 P 61 QRSd 78 QRS 10 QT 426 T 21 QTc 442 Conclusion SINUS RHYTHM NORMAL ECG Electronically signed by : CARLOS REYES, 09/18/2024 22:57:18
--- NOTE | 2024-09-18 15:40 | HMH.EDGENADL ---
Discharge Plan Disposition Patient Disposition: Home, Self-Care Condition: Good Prescriptions Prescriptions: No Action ranolazine 500 mg tablet extended release 12 hr 500 mg PO BID Qty: 60 5RF isosorbide mononitrate 30 mg tablet extended release 24 hr 30 mg PO DAILY Qty: 30 2RF nitroglycerin 0.4 mg tablet, sublingual 0.4 mg sublingual Q5-15M PRN (Reason: chest pain) Qty: 30 0RF Rx Instructions: do not exceed 3 doses per episode pantoprazole 40 mg tablet,delayed release (DR/EC) PO Patient Comments: TAKE ONE TABLET BY MOUTH EVERY DAY Creon 36,000-114,000- 180,000 unit capsule,delayed release(DR/EC) 1 cap PO BID Rx Instructions: administer with meals and/or snacks glipizide 5 mg tablet extended release 24hr 5 mg PO DAILY esomeprazole magnesium [Nexium] 40 mg capsule,delayed release(DR/EC) 40 mg PO DAILY Qty: 30 2RF metoprolol succinate 100 mg tablet extended release 24 hr 100 mg PO DAILY Qty: 90 2RF hydralazine 25 mg tablet 25 mg PO TID PRN (Reason: hypertension) Qty: 90 3RF Patient Comments: TAKE ONE TABLET BY MOUTH THREE TIMES DAILY NEEDED FOR HYPERTENSION; SYSTOLIC > 170 amlodipine 2.5 mg tablet 2.5 mg PO DAILY Qty: 90 3RF atorvastatin 80 mg tablet 80 mg PO DAILY Qty: 90 3RF aspirin 81 mg tablet,delayed release (DR/EC) 81 mg PO DAILY hydroxyzine pamoate 50 mg Capsule 50 mg PO TIDP PRN (Reason: Anxiety) buspirone 30 mg tablet 15 mg PO HS hydrochlorothiazide 25 mg tablet 25 mg PO BID 30 Days Qty: 60 0RF spironolactone 25 mg tablet 25 mg PO BID Qty: 60 0RF Referrals Follow up/Referrals: Laura Cobian APRN [Primary Care Provider] - See instructions Activity Restrictions/Add. Instructions Additional Instructions/Restrictions: Please follow-up with Dr. Reyes's group regarding today's events. Follow-up with your PCP for recheck within 48 hours or return to the ER as needed. Clinical Impressions Clinical Impression: Chest pain Instructions Patient Instructions: DI for Chest Pain Print Language Print Language: Latvian Discharge ED Provider: Sheldon Bruce General Adult HPI <MARCELINO Head - Last Filed: 09/18/24 22:30> General Chief complaint: Chest Pain Stated complaint: Chest pain Time Seen by Provider: 09/18/24 15:39 History of Present Illness HPI narrative: Patient presents for evaluation of chest pain. Patient has a longstanding cardiac history and is status post PCI with stent. She has had 2 apparent angiograms since her stent placement. She has had anginal symptoms in the past and is prescribed nitroglycerin. Around 11 AM today she began having chest pain that was relieved by 1 nitro but it came back. She contacted cardiology who recommended that she come straight to the emergency department. On arrival patient still reports her chest pain is a 3 or 4 out of 10 but denies shortness of breath fever chills hemoptysis hematochezia melena nausea vomiting diarrhea. It does not radiate. And she has not been recently ill Related Data Home Medications ?Medication ?Instructions ?Recorded ?Confirmed aspirin 81 mg tablet,delayed 81 mg PO DAILY 12/14/23 09/17/24 release hydroxyzine pamoate 50 mg capsule 50 mg PO TIDP PRN Anxiety 12/14/23 09/17/24 buspirone 30 mg tablet 15 mg PO HS 12/15/23 09/17/24 gwbyma-fjasktex-womomxy 1 cap PO BID 03/25/24 09/17/24 36,000-114,000-180,000 unit capsule,delay rel (Creon) pantoprazole 40 mg tablet,delayed mg PO 03/25/24 09/17/24 release glipizide 5 mg tablet, extended 5 mg PO DAILY 07/09/24 09/17/24 release 24 hr Previous Rx's ?Medication ?Instructions ?Recorded nitroglycerin 0.4 mg sublingual 0.4 mg sublingual Q5-15M PRN chest 01/28/24 tablet pain #30 tabs hydrochlorothiazide 25 mg tablet 25 mg PO BID 30 days #60 tabs 03/21/24 spironolactone 25 mg tablet 25 mg PO BID #60 tabs 03/21/24 isosorbide mononitrate 30 mg 30 mg PO DAILY #30 tabs 04/03/24 tablet,extended release 24 hr ranolazine 500 mg tablet,extended 500 mg PO BID #60 tabs 04/03/24 release,12 hr hydralazine 25 mg tablet 25 mg PO TID PRN hypertension #90 05/14/24 tabs metoprolol succinate 100 mg 100 mg PO DAILY #90 tabs 05/14/24 tablet,extended release 24 hr esomeprazole magnesium 40 mg 40 mg PO DAILY #30 caps 07/09/24 capsule,delayed release (Nexium) amlodipine 2.5 mg tablet 2.5 mg PO DAILY #90 tabs 09/17/24 atorvastatin 80 mg tablet 80 mg PO DAILY #90 tabs 09/17/24 Allergies Allergy/AdvReac Type Severity Reaction Status Date / Time lisinopril Allergy Verified 07/09/24 11:32 oxycodone [From Percocet] Allergy Verified 07/09/24 11:32 Sulfa (Sulfonamide Allergy Verified 07/09/24 11:32 Antibiotics) [facility] <MARCELINO Head - Last Filed: 09/18/24 22:30> [facility] Disclaimer: The information contained in this section may have been updated after the patient was seen, as this information can be updated by other users. 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, 2001, status post laser surgeries Brain fog Known side effect of topiramate History of nephrolithiasis Least 3?5 kidney stones, recommend avoiding topiramate Family history of brain aneurysm Both mother and paternal grandfather, patient denies prior aneurysm screening Carpal tunnel syndrome of left wrist GERD (gastroesophageal reflux disease) Hypoglycemia Cervical cancer HISTORY OF Ovarian cancer HISTORY OF Hypertension Surgical History History of cardiac cath H/O LEEP History of Family History Other Family history of diabetes mellitus type II Family history of hyperlipidemia Family history of hypertension Social History Smoking Status: Never smoker smoking status stop date: Oct 2023 alcohol intake: never substance use type: denies use current occupational status: unemployed Travel in the last 8 weeks: None household members: significant other housing: house marital status: single Other Medical History Have you received the Flu Vaccine for this season: No Have you received the Pneumonia Vaccine: No <MARCELINO Head - Last Filed: 09/18/24 22:30> ROS Obtained: Yes Systems reviewed as appropriate & no additional complaints except as documented Physical Exam <MARCELINO Head - Last Filed: 09/18/24 22:30> General General appearance: alert and in no apparent distress Respiratory Respiratory exam: Present normal lung sounds bilaterally Cardiovascular Cardiovascular exam: Present regular rate Neurological Exam Neurological exam: Present alert and oriented X3 Medical Decision Making <MARCELINO Head - Last Filed: 09/18/24 22:30> Medical Records Medical records reviewed: Yes I reviewed the patient's medical records. Screening: Per USPSTF and CDC recommendations, given the prevalence of disease in our region, it is our hospital?s policy to screen for HIV and viral Hepatitis for all patients aged 18 and over and those with ongoing risk factors. Billy Inquiry Pt receiving controlled substance: No Vital Signs: 09/18/24 15:37 09/18/24 15:37 09/18/24 16:00 Temperature 98.4 F Temperature Source Oral Pulse Rate 72 70 Pulse Rate [Right] 74 Respiratory Rate 18 19 13 Blood Pressure 155/99 H 146/88 H Blood Pressure [Right Arm] 163/103 H Blood Pressure Mean 129 107 Blood Pressure Mean [Right Arm] 123 02 Sat by Pulse Oximetry 96 99 99 Oxygen Delivery Method Room Air Room Air Room Air 09/18/24 16:30 09/18/24 17:00 09/18/24 17:30 Temperature Temperature Source Pulse Rate 72 65 67 Pulse Rate [Right] Respiratory Rate 15 15 14 Blood Pressure 121/77 136/88 119/85 Blood Pressure [Right Arm] Blood Pressure Mean 91 98 95 Blood Pressure Mean [Right Arm] 02 Sat by Pulse Oximetry 99 99 97 Oxygen Delivery Method Room Air Room Air Room Air 09/18/24 18:00 09/18/24 18:30 09/18/24 19:01 Temperature Temperature Source Pulse Rate 69 67 66 Pulse Rate [Right] Respiratory Rate 15 14 14 Blood Pressure 122/80 134/84 147/102 H Blood Pressure [Right Arm] Blood Pressure Mean 99 94 112 Blood Pressure Mean [Right Arm] 02 Sat by Pulse Oximetry 96 99 100 Oxygen Delivery Method Room Air Room Air Room Air 09/18/24 19:33 Temperature 98.4 F Temperature Source Oral Pulse Rate 68 Pulse Rate [Right] Respiratory Rate 18 Blood Pressure 138/92 H Blood Pressure [Right Arm] Blood Pressure Mean Blood Pressure Mean [Right Arm] 02 Sat by Pulse Oximetry Oxygen Delivery Method Room Air Lab Data Lab results reviewed: Yes I reviewed the patient's lab results. Lab Results 09/18/24 15:39: WBC 6.3, RBC 4.56, Hgb 14.1, Hct 41.0, MCV 90.0, MCH 30.9, MCHC 34.3, RDW 13.4, Plt Count 371, MPV 8.1, Neut % (Auto) 57.1, Lymph % (Auto) 32.4, [place] % (Auto) 8.0, Eos % (Auto) 1.7, Baso % (Auto) 0.7, Neut # (Auto) 3.6, Lymph # (Auto) 2.0, [place] # (Auto) 0.5, Eos # (Auto) 0.1, Baso # (Auto) 0.1, Sodium 137, Potassium 4.1, Chloride 103, Carbon Dioxide 30, Anion Gap 8.1, BUN 19 H, Creatinine 0.70, Estimated Creat Clear 125, Estimated GFR 89, Est GFR ( Amer) 108, Glucose 167 H, Calcium 9.4, Total Bilirubin 0.5, AST 24, ALT 48, Alkaline Phosphatase 104, Troponin I < 0.01, NT-Pro-B Natriuret Pep < 20.0, Total Protein 7.6, Albumin 4.1, Globulin 3.5 H, Albumin/Globulin Ratio 1.2, HIV 1&2 Antibody Rapid Nonreactive 09/18/24 18:38: Troponin I < 0.01 09/18/24 15:39 09/18/24 15:39 Orders (Tests/Meds): ED MEDICATIONS Discontinued Medications Generic Name Dose Route Start Last Admin Trade Name Freq PRN Reason Stop Dose Admin Acetaminophen 1,000 mg 09/18/24 15:42 09/18/24 15:51 Acetaminophen 500mg Tab PO 09/18/24 15:43 1,000 mg ONCE ONE Administration Aspirin 324 mg 09/18/24 15:41 09/18/24 15:56 Aspirin 81mg Chewable Tablet PO 09/18/24 15:42 Not Given ONCE ONE Ketorolac Tromethamine 15 mg 09/18/24 15:42 09/18/24 15:51 Ketorolac 30mg/Ml Vial IV 10/24/24 15:43 15 mg ONCE ONE Administration Ondansetron HCl 4 mg 09/18/24 15:42 09/18/24 15:51 Ondansetron 4mg/2ml Vial IV 09/18/24 15:43 4 mg ONCE ONE Administration ORDERS Category Date Time Status BNP [NT Pro Brain Natriuretic Pep.] Stat Lab 09/18/24 15:39 Completed CBC w/Auto Diff [Complete Blood Count Auto Diff] Stat Lab 09/18/24 15:39 Completed CMP [Comprehensive Metabolic Panel] Stat Lab 09/18/24 15:39 Completed HIV (1&2) Antibody Rapid Stat Lab 09/18/24 15:39 Completed Hep C Ab with Reflex to RNA Stat Lab 09/18/24 15:39 Received Trop I [Troponin I] Stat Lab 09/18/24 15:39 Completed Troponin I Q3H Lab 09/18/24 18:38 Completed HEART Score History (anamnesis): Slightly suspicious ECG: Normal Age: 45-65 years Risk factors: Atherosclerosis history Troponin: </= normal limit HEART Score: 3 Medical Decision Narrative: In summary patient is a 49-year-old female who presents to the emergency department for evaluation of chest pain. Patient is hemodynamically stable upon arrival, afebrile. Physical exam is remarkable for nonreproducible chest pain on palpation with normal breath sounds normal heart sounds benign abdominal exam normal sinus rhythm on the bedside monitor. Differential diagnosis includes angina versus ACS versus gastritis esophagitis etc. Initial workup will be conducted with hematologic labs twelve-lead EKG plain film chest x-ray. Initial interventions include Toradol Tylenol. Initial workup reviewed by me shows that her hematologic labs are nonactionable twelve-lead EKG shows normal sinus rhythm and my informal interpretation of her plain film chest x-ray shows no acute processes. Given her cardiac history the patient was placed in observation status at 1630. Medical necessity for observational status is serial troponins. The patient was provided serial reevaluations continuous cardiac monitoring and pulse oximetry while awaiting results. Second troponin remains undetectable. Because of this I have referred the patient back to cardiology for close follow-up.. Total time in observation was 3 hours. <Sheldon Bruce MD - Last Filed: 09/18/24 22:51> Vital Signs: 09/18/24 15:37 09/18/24 15:37 09/18/24 16:00 Temperature 98.4 F Temperature Source Oral Pulse Rate 72 70 Pulse Rate [Right] 74 Respiratory Rate 18 19 13 Blood Pressure 155/99 H 146/88 H Blood Pressure [Right Arm] 163/103 H Blood Pressure Mean 129 107 Blood Pressure Mean [Right Arm] 123 02 Sat by Pulse Oximetry 96 99 99 Oxygen Delivery Method Room Air Room Air Room Air 09/18/24 16:30 09/18/24 17:00 09/18/24 17:30 Temperature Temperature Source Pulse Rate 72 65 67 Pulse Rate [Right] Respiratory Rate 15 15 14 Blood Pressure 121/77 136/88 119/85 Blood Pressure [Right Arm] Blood Pressure Mean 91 98 95 Blood Pressure Mean [Right Arm] 02 Sat by Pulse Oximetry 99 99 97 Oxygen Delivery Method Room Air Room Air Room Air 09/18/24 18:00 09/18/24 18:30 09/18/24 19:01 Temperature Temperature Source Pulse Rate 69 67 66 Pulse Rate [Right] Respiratory Rate 15 14 14 Blood Pressure 122/80 134/84 147/102 H Blood Pressure [Right Arm] Blood Pressure Mean 99 94 112 Blood Pressure Mean [Right Arm] 02 Sat by Pulse Oximetry 96 99 100 Oxygen Delivery Method Room Air Room Air Room Air 09/18/24 19:33 Temperature 98.4 F Temperature Source Oral Pulse Rate 68 Pulse Rate [Right] Respiratory Rate 18 Blood Pressure 138/92 H Blood Pressure [Right Arm] Blood Pressure Mean Blood Pressure Mean [Right Arm] 02 Sat by Pulse Oximetry Oxygen Delivery Method Room Air Lab Data Lab Results 09/18/24 15:39: WBC 6.3, RBC 4.56, Hgb 14.1, Hct 41.0, MCV 90.0, MCH 30.9, MCHC 34.3, RDW 13.4, Plt Count 371, MPV 8.1, Neut % (Auto) 57.1, Lymph % (Auto) 32.4, [place] % (Auto) 8.0, Eos % (Auto) 1.7, Baso % (Auto) 0.7, Neut # (Auto) 3.6, Lymph # (Auto) 2.0, [place] # (Auto) 0.5, Eos # (Auto) 0.1, Baso # (Auto) 0.1, Sodium 137, Potassium 4.1, Chloride 103, Carbon Dioxide 30, Anion Gap 8.1, BUN 19 H, Creatinine 0.70, Estimated Creat Clear 125, Estimated GFR 89, Est GFR ( Amer) 108, Glucose 167 H, Calcium 9.4, Total Bilirubin 0.5, AST 24, ALT 48, Alkaline Phosphatase 104, Troponin I < 0.01, NT-Pro-B Natriuret Pep < 20.0, Total Protein 7.6, Albumin 4.1, Globulin 3.5 H, Albumin/Globulin Ratio 1.2, HIV 1&2 Antibody Rapid Nonreactive 09/18/24 18:38: Troponin I < 0.01 Orders (Tests/Meds): ED MEDICATIONS Discontinued Medications Generic Name Dose Route Start Last Admin Trade Name Freq PRN Reason Stop Dose Admin Acetaminophen 1,000 mg 09/18/24 15:42 09/18/24 15:51 Acetaminophen 500mg Tab PO 09/18/24 15:43 1,000 mg ONCE ONE Administration Aspirin 324 mg 09/18/24 15:41 09/18/24 15:56 Aspirin 81mg Chewable Tablet PO 09/18/24 15:42 Not Given ONCE ONE Ketorolac Tromethamine 15 mg 09/18/24 15:42 09/18/24 15:51 Ketorolac 30mg/Ml Vial IV 09/18/24 15:43 15 mg ONCE ONE Administration Ondansetron HCl 4 mg 09/18/24 15:42 09/18/24 15:51 Ondansetron 4mg/2ml Vial IV 09/18/24 15:43 4 mg ONCE ONE Administration ORDERS Category Date Time Status BNP [NT Pro Brain Natriuretic Pep.] Stat Lab 09/18/24 15:39 Completed CBC w/Auto Diff [Complete Blood Count Auto Diff] Stat Lab 09/18/24 15:39 Completed CMP [Comprehensive Metabolic Panel] Stat Lab 09/18/24 15:39 Completed HIV (1&2) Antibody Rapid Stat Lab 09/18/24 15:39 Completed Hep C Ab with Reflex to RNA Stat Lab 09/18/24 15:39 Received Trop I [Troponin I] Stat Lab 09/18/24 15:39 Completed Troponin I Q3H Lab 09/18/24 18:38 Completed HEART Score HEART Score: 3 Medical Decision Narrative: In summary patient is a 49-year-old female who presents to the emergency department for evaluation of chest pain. Patient is hemodynamically stable upon arrival, afebrile. Physical exam is remarkable for nonreproducible chest pain on palpation with normal breath sounds normal heart sounds benign abdominal exam normal sinus rhythm on the bedside monitor. Differential diagnosis includes angina versus ACS versus gastritis esophagitis etc. Initial workup will be conducted with hematologic labs twelve-lead EKG plain film chest x-ray. Initial interventions include Toradol Tylenol. Initial workup reviewed by me shows that her hematologic labs are nonactionable twelve-lead EKG shows normal sinus rhythm and my informal interpretation of her plain film chest x-ray shows no acute processes. Given her cardiac history the patient was placed in observation status at 1630. Medical necessity for observational status is serial troponins. The patient was provided serial reevaluations continuous cardiac monitoring and pulse oximetry while awaiting results. Second troponin remains undetectable. Because of this I have referred the patient back to cardiology for close follow-up.. Total time in observation was 3 hours. I was consulted by the FLASH, and we discussed the complexity of the problems being addressed.I approved the treatment and management plan for this patient?s care in the Emergency Department, thus performing a substantive portion of the medical decision making.Signed, Sheldon Bruce MD Critical Care <MARCELINO Head - Last Filed: 09/18/24 22:30> Critical Care Time Critical Care Time: No
[2024-09-18] MEDS: KETOROLAC 30MG/ML VIAL 15 MG IV (15:51)
[2024-09-18] MEDS: ACETAMINOPHEN 500MG TAB 1000 MG PO (15:51)
[2024-09-18] MEDS: ONDANSETRON 4MG/2ML VIAL 4 MG IV (15:51)
[2024-09-18 16:01] LABS: Basophils # 0.1 K/mm3 (0-0.2); Basophils % 0.7 % (0.1-2.0); Eosinophils # 0.1 K/mm3 (0.0-0.4); Eosinophils % 1.7 % (0.1-12.0); Hemoglobin 14.1 g/dL (12.2-16.2); Lymphocytes % 32.4 % (10-50); Mean Corpuscular HGB Conc 34.3 g/dL (31.8-35.4); Mean Corpuscular Hemoglobin 30.9 pg (27.0-31.2); Mean Platelet Volume 8.1 fl (7.4-10.4); Monocytes # 0.5 K/mm3 (0.1-1.0); Neutrophils # 3.6 K/mm3 (1.8-7.8); Neutrophils % 57.1 % (37.0-80.0); Platelet Count 371 K/mm3 (142-424); Red Blood Count 4.56 M/mm3 (4.20-5.40); Red Cell Distribution Width 13.4 % (11.5-17.5); White Blood Count 6.3 K/mm3 (4.8-10.8)
[2024-09-18 16:02] LABS: Albumin Level 4.1 g/dl (3.5-5.0); Chloride 103 mmol/L (98-107); Potassium 4.1 mmoL/L (3.5-5.1); Sodium 137 mmol/L (136-145)
[2024-09-18 16:05] LABS: Alanine Aminotransferase 48 U/L (12-78); Albumin/Globulin Ratio 1.2 (1.1-1.8); Alkaline Phosphatase 104 U/L (38-126); Anion Gap 8.1 mEq/L (5-15); Aspartate Amino Transferase 24 U/L (14-36); Bilirubin,Total 0.5 mg/dl (0.2-1.3); Blood Urea Nitrogen 19 mg/dl (7-17); Calcium 9.4 mg/dl (8.4-10.2); Carbon Dioxide 30 mmol/L (22.0-30.0); Creatinine Clearance Estimated 125 mL/min (50-200); Estimated Glomerular Filt Rate 89 ml/min (>60); GFR (African American) 108 ML/MIN (>60); Globulin 3.5 g/dL (1.3-3.2); Glucose 167 mg/dl (74-100); Total Protein,Serum 7.6 g/dl (6.3-8.2)
[2024-09-18 16:14] LABS: NT Pro Brain Natriuretic Pep. < 20.0 pg/mL (0-125)
[2024-09-18 16:23] LABS: Troponin I < 0.01 ng/ml (0.00-0.034)
[2024-09-18 16:43] LABS: HIV (1&2) Antibody Rapid NONREACTIVE (NONREACTIVE)
--- NOTE | 2024-09-18 16:57 | PC.NURSE ---
Rounded on Patient, Patient voiced she wanted a warm blanket, tech took patient a heated blanket.
--- NOTE | 2024-09-18 18:38 | PC.NURSE ---
REPEAT TROP SENT TO LAB, PT UPDATED ON POC. NO NEEDS AT THIS TIME. CALL LIGHT WITHIN REACH
--- NOTE | 2024-09-18 18:47 | PC.NURSE ---
PT AND SPOUSE PROVIDED SNACK AND DRINK AT THIS TIME PER REQUEST
[2024-09-18 19:20] LABS: Troponin I < 0.01 ng/ml (0.00-0.034)
[2024-09-19 05:56] LABS: HCV Ab Non Reactive (Non Reactive)
== END 2024-09-18 19:36 | disposition home or self-care (01) ==
PROVIDERS: Physician Assistant; Emergency Provider Emergency Medicine; PCP Nurse Practitioner
DX: R07.9 Chest pain, unspecified (principal)
CPT/HCPCS: 80053; 83880; 84484; 85025; 86803; 87389; 93005; 96374; 96375; 99283; J1885; J2405

== ENCOUNTER 2024-11-05 16:54 | Emergency (ER) | payer OTHER, SELFPAY ==
--- NOTE | 2024-11-05 16:43 | ECG_ITS ---
APPROVED REPORT Exam: Resting ECG HR:75 bpm ECG Measurements Heart Rate 75 AXES VA 146 P 64 QRSd 100 QRS 13 QT 408 T 14 QTc 437 Conclusion SINUS RHYTHM MINIMAL ST DEPRESSION [0.025+ mV ST DEPRESSION] BORDERLINE ECG UNCONFIRMED REPORT Electronically signed by : CYNDIE GONZALEZ, 11/06/2024 06:28:00
[2024-11-05 16:54] VITALS: BP 160/106; PULSE 76; RESP 14; TEMP 36.6; O2SAT 99; BMI 37.3
--- NOTE | 2024-11-05 16:58 | XR_ITS ---
PROCEDURE INFORMATION: Exam: XR Chest Exam date and time: 11/05/2024 5:03 PM Age: 49 years old Clinical indication: Shortness of breath; Chest pressure and other: Chest pain and pressure; Additional info: SOA and cp TECHNIQUE: Imaging protocol: Radiologic exam of the chest. Views: 1 view. COMPARISON: CR XR CHEST PORTABLE 03/20/2024 9:44 PM FINDINGS: Lungs: Unremarkable. No consolidation. Pleural spaces: Unremarkable. No pleural effusion. No pneumothorax. Heart/Mediastinum: Unremarkable. No cardiomegaly. Bones/joints: Unremarkable. IMPRESSION: No acute findings.
[2024-11-05 17:09] VITALS: PULSE 76
--- NOTE | 2024-11-05 17:11 | [facility].EDCP ---
Discharge Plan Disposition Patient Disposition: Home, Self-Care Condition: Good Prescriptions Prescriptions: New sucralfate [Carafate] 1 gram tablet 1 g PO ONCE Qty: 5 0RF No Action ranolazine 500 mg tablet extended release 12 hr 500 mg PO BID Qty: 60 5RF famotidine 20 mg tablet 20 mg PO DAILY nitroglycerin 0.4 mg tablet, sublingual 0.4 mg sublingual Q5-15M PRN (Reason: chest pain) Qty: 30 0RF Rx Instructions: do not exceed 3 doses per episode Creon 36,000-114,000- 180,000 unit capsule,delayed release(DR/EC) 1 cap PO BID Rx Instructions: administer with meals and/or snacks glipizide 5 mg tablet extended release 24hr 5 mg PO DAILY esomeprazole magnesium [Nexium] 40 mg capsule,delayed release(DR/EC) 40 mg PO DAILY Qty: 30 2RF metoprolol succinate 100 mg tablet extended release 24 hr 100 mg PO DAILY Qty: 90 2RF amlodipine 2.5 mg tablet 2.5 mg PO DAILY Qty: 90 3RF atorvastatin 80 mg tablet 80 mg PO DAILY Qty: 90 3RF isosorbide mononitrate 30 mg tablet extended release 24 hr 30 mg PO DAILY Qty: 90 2RF hydralazine 25 mg tablet See Rx Instructions .ROUTE .COMPLEX Qty: 270 1RF Dose Instruction: TAKE 1 TABLET BY MOUTH THREE TIMES DAILY NEEDED FOR HYPERTENSION Rx Instructions: TAKE 1 TABLET BY MOUTH THREE TIMES DAILY NEEDED FOR HYPERTENSION aspirin 81 mg tablet,delayed release (DR/EC) 81 mg PO DAILY hydroxyzine pamoate 50 mg Capsule 50 mg PO TIDP PRN (Reason: Anxiety) buspirone 30 mg tablet 15 mg PO HS hydrochlorothiazide 25 mg tablet 25 mg PO BID 30 Days Qty: 60 0RF spironolactone 25 mg tablet 25 mg PO BID Qty: 60 0RF Referrals Follow up/Referrals: Laura Cobian APRN [Primary Care Provider] - See instructions Activity Restrictions/Add. Instructions Additional Instructions/Restrictions: Return to the emergency department for any worsening chest pain shortness of breath, follow-up with GI doctor take all medications as prescribed especially your omeprazole, take new medication as prescribed for 5 days. The emergency department for any worsening signs or symptoms follow-up with PCP/primary mill roller as well. Clinical Impressions Clinical Impression: Chest pain GERD (gastroesophageal reflux disease) Qualifiers: Esophagitis presence: esophagitis presence not specified Qualified Code(s): K21.9 - Gastro-esophageal reflux disease without esophagitis Instructions Patient Instructions: DI for Gastroesophageal Reflux Disease (GERD), DI for Atypical Chest Pain Print Language Print Language: Maori Discharge ED Provider: Sheldon Bruce HPI <MARCELINO Barnett - Last Filed: 11/05/24 21:23> General Chief Complaint: Chest Pain Stated Complaint: Chest Pressure Time Seen by Provider: 11/05/24 16:57 Mode of Arrival: Family Vehicle Source of Information: Patient and Medical Record Limitations: No Limitations Description of Symptoms (Recalled from ER Triage Doc. by RN): Pt c/o anterior chest pressure that radiates through her back. She has had 1 cardiac stent. She took 1 nitro & full dose (324mg aspirin) [employer]ERSON[employer] COUNSEL[employer] at 1600 that has not helped her pain/pressure. She reports SOB, cough, and aches to L shoulder. History of Present Illness HPI narrative: 9-year-old female presents to the emergency department with chest pain/tightness that is waxed and waned and gradually worsened over the last 3 days to the point that while she describes it as a pinprick sensation on the left side of her chest, with radiation to the left shoulder, she endorses cough, nausea, no vomiting, no recent sick contacts, no fever or chills, no real abdominal pain, no urinary type symptomatology no hematuria melena hematochezia hematemesis. Patient took 1 full nitro dose at 324 mg p.o. aspirin at 1600. He has a history of coronary artery disease status post 1 stent placement performed at [facility] in 2019, the past medical history consistent with data deficient Prinzmetal angina, type 2 diabetes, KAREN, hypertension, migraines, anxiety/depression, prior history of tobacco use quit for 1 year, hyperlipidemia, GERD, for the last 3-4 months patient has had ongoing ankle fracture (stress fracture), and has been on a boot/scooter. Denies any other history of substance use, has no other acute complaints and triage vitals unremarkable. Related Data Home Medications ?Medication ?Instructions ?Recorded ?Confirmed aspirin 81 mg tablet,delayed 81 mg PO DAILY 12/14/23 09/22/24 release hydroxyzine pamoate 50 mg capsule 50 mg PO TIDP PRN Anxiety 12/14/23 09/22/24 buspirone 30 mg tablet 15 mg PO HS 12/15/23 09/22/24 abumli-gccmnbst-jibzoft 1 cap PO BID 03/25/24 09/22/24 36,000-114,000-180,000 unit capsule,delay rel (Creon) glipizide 5 mg tablet, extended 5 mg PO DAILY 07/09/24 09/22/24 release 24 hr famotidine 20 mg tablet 20 mg PO DAILY 09/22/24 09/22/24 Previous Rx's ?Medication ?Instructions ?Recorded nitroglycerin 0.4 mg sublingual 0.4 mg sublingual Q5-15M PRN chest 01/28/24 tablet pain #30 tabs hydrochlorothiazide 25 mg tablet 25 mg PO BID 30 days #60 tabs 03/21/24 spironolactone 25 mg tablet 25 mg PO BID #60 tabs 03/21/24 ranolazine 500 mg tablet,extended 500 mg PO BID #60 tabs 04/03/24 release,12 hr metoprolol succinate 100 mg 100 mg PO DAILY #90 tabs 05/14/24 tablet,extended release 24 hr esomeprazole magnesium 40 mg 40 mg PO DAILY #30 caps 07/09/24 capsule,delayed release (Nexium) amlodipine 2.5 mg tablet 2.5 mg PO DAILY #90 tabs 09/17/24 atorvastatin 80 mg tablet 80 mg PO DAILY #90 tabs 09/17/24 isosorbide mononitrate 30 mg 30 mg PO DAILY #90 tabs 10/14/24 tablet,extended release 24 hr hydralazine 25 mg tablet See Rx Instructions .Route 10/15/24 .COMPLEX #270 tabs sucralfate 1 gram tablet (Carafate) 1 g PO ONCE #5 tabs 11/05/24 Allergies Allergy/AdvReac Type Severity Reaction Status Date / Time lisinopril Allergy Verified 09/22/24 14:59 oxycodone (From Percocet) Allergy Verified 09/22/24 14:59 Sulfa (Sulfonamide Allergy Verified 09/22/24 14:59 Antibiotics) [facility] <MARCELINO Barnett - Last Filed: 11/05/24 21:23> [facility] Disclaimer: The information contained in this section may have been updated after the patient was seen, as this information can be updated by other users. 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, 2001, status post laser surgeries Brain fog Known side effect of topiramate History of nephrolithiasis Least 3?5 kidney stones, recommend avoiding topiramate Family history of brain aneurysm Both mother and paternal grandfather, patient denies prior aneurysm screening Carpal tunnel syndrome of left wrist GERD (gastroesophageal reflux disease) Hypoglycemia Cervical cancer HISTORY OF Ovarian cancer HISTORY OF Hypertension Surgical History History of cardiac cath H/O LEEP History of Family History Other Family history of diabetes mellitus type II Family history of hyperlipidemia Family history of hypertension Social History Smoking Status: Never smoker smoking status stop date: Oct 2023 alcohol intake: never substance use type: denies use current occupational status: unemployed Travel in the last 8 weeks: None household members: significant other housing: house marital status: single Have you lived/traveled outside [place] in past 30 days?: No Contact w/someone who lives/traveled outside US past 30 days?: No Exposure to someone with infectious disease in past 14 days?: No Do you have a fever (greater than 100.4 F or 38 C)?: No Have you tested positive for COVID-19: No Exposed to someone with COVID-19 in past 14 days?: No Do you have a sore throat?: No Do you have a cough?: No Do you have any weakness?: No Do you have any diarrhea?: No Are you experiencing any unusual bleeding?: No Do you have any muscle aches/pain?: No Do you have any abdominal pain?: No Are you experiencing loss of taste or smell?: No Other Medical History Have you received the Flu Vaccine for this season: No Have you received the Pneumonia Vaccine: No <MARCELINO Barnett - Last Filed: 11/05/24 21:23> ROS Obtained: Yes All systems reviewed & no additional complaints except as documented Physical Exam <MARCELINO Barnett - Last Filed: 11/05/24 21:23> General General appearance: alert and in no apparent distress Head Head exam: atraumatic and normocephalic Eye Eye exam: Present normal appearance, PERRL and EOMI Neck Neck exam: Present full ROM; Absent meningismus Chest Chest inspection: Present normal inspection Respiratory Respiratory exam: Absent respiratory distress, wheezes, stridor, accessory muscle use or prolonged expiratory phase Cardiovascular Cardiovascular exam: Present normal rhythm and other (Pulses equal and symmetric in bilateral upper and lower extremities, there is some mild chest wall tenderness to palpation left substernal chest) Abdominal Exam Abdominal exam: Absent distention Extremities Exam Extremities exam: Absent edema Neurological Exam Neurological exam: Present alert Psychiatric Psychiatric exam: Present normal affect Skin Skin exam: Present warm and dry HEART Score <MARCELINO Barnett - Last Filed: 11/05/24 21:23> HEART Score HEART Score assessment performed?: Yes History (anamnesis): Slightly suspicious ECG: Normal Age: 45-65 years Risk factors: 3 or more risk factors Troponin: </= normal limit HEART Score: 3 <Sheldon Bruce MD - Last Filed: 11/06/24 16:45> HEART Score HEART Score: 3 Critical Care <MARCELINO Barnett - Last Filed: 11/05/24 21:23> Critical Care Time Critical Care Time: No Medical Decision Making <MARCELINO Barnett - Last Filed: 11/05/24 21:23> Medical Records Medical records reviewed: Yes I reviewed the patient's medical records. Billy Inquiry Pt receiving controlled substance: No Billy was queried for this patient: No Vital Signs Vital Signs: 11/05/24 16:54 11/05/24 17:09 11/05/24 21:39 Temperature 97.8 F 98.7 F Temperature Source Oral Oral Pulse Rate 76 74 Pulse Rate [Right] 76 Respiratory Rate 14 18 Blood Pressure 102/68 L Blood Pressure [Right Arm] 160/106 H Blood Pressure Mean [Right Arm] 124 Blood Pressure Source Automatic Cuff Blood Pressure Source [Right Arm] Automatic Cuff Blood Pressure Position Supine 02 Sat by Pulse Oximetry 99 Oxygen Delivery Method Room Air Room Air Lab Data Lab results reviewed: Yes I reviewed the patient's lab results. Labs: Lab Results 11/05/24 17:09: WBC 7.8, RBC 4.94, Hgb 14.9, Hct 43.8, MCV 88.7, MCH 30.1, MCHC 33.9, RDW 13.4, Plt Count 352, MPV 8.1, Neut % (Auto) 59.4, Lymph % (Auto) 31.6, [place] % (Auto) 7.3, Eos % (Auto) 1.0, Baso % (Auto) 0.8, Neut # (Auto) 4.6, Lymph # (Auto) 2.5, [place] # (Auto) 0.6, Eos # (Auto) 0.1, Baso # (Auto) 0.1, PT 10.3, INR 0.91, D-Dimer 0.46, Sodium 135 L, Potassium 3.7, Chloride 104, Carbon Dioxide 29, Anion Gap 5.7, BUN 15, Creatinine 0.70, Estimated Creat Clear 129, Estimated GFR 89, Est GFR ( Amer) 108, Glucose 110 H, Calcium 9.3, Magnesium 2.2, Total Bilirubin 0.5, AST 31, ALT 46, Alkaline Phosphatase 124, Total Creatine Kinase 42, Troponin I < 0.01, Total Protein 7.6, Albumin 4.4, Globulin 3.2, Albumin/Globulin Ratio 1.4, Lipase 45 11/05/24 20:37: Troponin I < 0.01 11/05/24 17:09 11/05/24 17:09 Response Orders (Tests/Meds): ED MEDICATIONS Discontinued Medications Generic Name Dose Route Start Last Admin Trade Name Freq PRN Reason Stop Dose Admin Belladonna Alkaloids 60 ml 11/05/24 19:10 11/05/24 19:13 Belladonna Alkaloids 60 Ml Ml PO 11/05/24 19:11 60 ml ONCE ONE Administration Iopamidol 75 ml 11/05/24 20:05 11/05/24 20:07 Iopamidol-370 (76%);100ml Bottle IV 11/05/24 20:06 75 ml ONCE ONE Administration Morphine Sulfate 2 mg 11/05/24 18:06 11/05/24 18:12 Morphine 2mg/Ml Syringe IV 11/05/24 18:07 2 mg ONCE ONE Administration Ondansetron HCl 4 mg 11/05/24 18:07 11/05/24 18:13 Ondansetron 4mg/2ml Vial IV 11/05/24 18:08 4 mg ONCE ONE Administration Sodium Chloride 10 ml 11/05/24 17:12 Sodium Chloride 0.9% 10ml Flush Syringe IV 12/05/24 17:11 NEEDED PRN Maintain IV Site Sodium Chloride 10 ml 11/05/24 20:05 11/05/24 20:06 Sodium Chloride 0.9% 10ml Syr (Rad Only) IV 11/05/24 20:06 10 ml ONCE ONE Administration ORDERS Category Date Time Status CT abdomen pelvis w con Stat Cat Scan 11/05/24 19:13 Completed XR chest portable Stat Exams 11/05/24 16:58 Completed CK [Creatine Kinase] Stat Lab 11/05/24 17:09 Completed Complete Blood Count Auto Diff Stat Lab 11/05/24 17:09 Completed Comprehensive Metabolic Panel Stat Lab 11/05/24 17:09 Completed D-Dimer Stat Lab 11/05/24 17:09 Completed Lipase Stat Lab 11/05/24 17:09 Completed Magnesium Stat Lab 11/05/24 17:09 Completed PT INR [Prothrombin Time INR] Stat Lab 11/05/24 17:09 Completed Troponin I Q3H Lab 11/05/24 20:37 Completed Troponin I Stat Lab 11/05/24 17:09 Completed MDM Narrative Medical Decision Narrative: 49-year-old female presents to the emergency department with chest pain shortness of breath, see HPI for detail past medical history, differential diagnose include but not limited to ACS, cardiac arrhythmia, electrolyte disturbance, costochondritis, PE, gastritis, GERD, anxiety type reaction, panic attack, pneumonia. I discussed patient case with the attending physician Will obtain troponin full cardiac workup proBNP D-dimer coagulation studies EKG chest x-ray and basic laboratory studies, will give 4 mg IV Zofran for nausea and 2 mg morphine for pain. CBC unremarkable I reviewed the patient's chest x-ray along the corresponding radiologic report no acute findings CMP unremarkable. Troponin is negative, D-dimer is -0.46. Reexamination of the patient at 7:09 PM, patient's states her chest pain is still present substernally will trial GI cocktail and obtain CT abdomen pelvis with contrast for evaluation as characterization. I reviewed the patient's CT of the abdomen pelvis with contrast along the corresponding radiologic report severe diffuse hepatic steatosis mild sigmoid diverticulosis identified no acute inflammatory process within the abdomen pelvis. I was notified by nursing staff that the patient chest pain improved with GI cocktail. Troponin is improved. Patient's pain is improved with GI cocktail discussed results of laboratory studies and imaging studies with the patient and at the bedside, patient is years criteria negative D-dimer negative. Patient cleared to be discharged home to self-care recommend follow-up with GI physician I will prescribe short course of Carafate for GI stress ulcer prophylaxis. She will take medication as prescribed. Patient return to the emergency department any worsening signs or symptoms. Patient voiced understanding of the current treatment plan/discharge plan. <Sheldon Bruce MD - Last Filed: 11/06/24 16:45> Vital Signs Vital Signs: 11/05/24 16:54 11/05/24 17:09 11/05/24 21:39 Temperature 97.8 F 98.7 F Temperature Source Oral Oral Pulse Rate 76 74 Pulse Rate [Right] 76 Respiratory Rate 14 18 Blood Pressure 102/68 L Blood Pressure [Right Arm] 160/106 H Blood Pressure Mean [Right Arm] 124 Blood Pressure Source Automatic Cuff Blood Pressure Source [Right Arm] Automatic Cuff Blood Pressure Position Supine 02 Sat by Pulse Oximetry 99 Oxygen Delivery Method Room Air Room Air Lab Data Labs: Lab Results 11/05/24 17:09: WBC 7.8, RBC 4.94, Hgb 14.9, Hct 43.8, MCV 88.7, MCH 30.1, MCHC 33.9, RDW 13.4, Plt Count 352, MPV 8.1, Neut % (Auto) 59.4, Lymph % (Auto) 31.6, [place] % (Auto) 7.3, Eos % (Auto) 1.0, Baso % (Auto) 0.8, Neut # (Auto) 4.6, Lymph # (Auto) 2.5, [place] # (Auto) 0.6, Eos # (Auto) 0.1, Baso # (Auto) 0.1, PT 10.3, INR 0.91, D-Dimer 0.46, Sodium 135 L, Potassium 3.7, Chloride 104, Carbon Dioxide 29, Anion Gap 5.7, BUN 15, Creatinine 0.70, Estimated Creat Clear 129, Estimated GFR 89, Est GFR ( Amer) 108, Glucose 110 H, Calcium 9.3, Magnesium 2.2, Total Bilirubin 0.5, AST 31, ALT 46, Alkaline Phosphatase 124, Total Creatine Kinase 42, Troponin I < 0.01, Total Protein 7.6, Albumin 4.4, Globulin 3.2, Albumin/Globulin Ratio 1.4, Lipase 45 11/05/24 20:37: Troponin I < 0.01 Response Orders (Tests/Meds): ED MEDICATIONS Discontinued Medications Generic Name Dose Route Start Last Admin Trade Name Freq PRN Reason Stop Dose Admin Belladonna Alkaloids 60 ml 11/05/24 19:10 11/05/24 19:13 Belladonna Alkaloids 60 Ml Ml PO 11/05/24 19:11 60 ml ONCE ONE Administration Iopamidol 75 ml 11/05/24 20:05 11/05/24 20:07 Iopamidol-370 (76%);100ml Bottle IV 11/05/24 20:06 75 ml ONCE ONE Administration Morphine Sulfate 2 mg 11/05/24 18:06 11/05/24 18:12 Morphine 2mg/Ml Syringe IV 11/05/24 18:07 2 mg ONCE ONE Administration Ondansetron HCl 4 mg 11/05/24 18:07 11/05/24 18:13 Ondansetron 4mg/2ml Vial IV 11/05/24 18:08 4 mg ONCE ONE Administration Sodium Chloride 10 ml 11/05/24 17:12 Sodium Chloride 0.9% 10ml Flush Syringe IV 12/05/24 17:11 NEEDED PRN Maintain IV Site Sodium Chloride 10 ml 11/05/24 20:05 11/05/24 20:06 Sodium Chloride 0.9% 10ml Syr (Rad Only) IV 11/05/24 20:06 10 ml ONCE ONE Administration ORDERS Category Date Time Status CT abdomen pelvis w con Stat Cat Scan 11/05/24 19:13 Completed XR chest portable Stat Exams 11/05/24 16:58 Completed CK [Creatine Kinase] Stat Lab 11/05/24 17:09 Completed Complete Blood Count Auto Diff Stat Lab 11/05/24 17:09 Completed Comprehensive Metabolic Panel Stat Lab 11/05/24 17:09 Completed D-Dimer Stat Lab 11/05/24 17:09 Completed Lipase Stat Lab 11/05/24 17:09 Completed Magnesium Stat Lab 11/05/24 17:09 Completed PT INR [Prothrombin Time INR] Stat Lab 11/05/24 17:09 Completed Troponin I Q3H Lab 11/05/24 20:37 Completed Troponin I Stat Lab 11/05/24 17:09 Completed MDM Narrative Medical Decision Narrative: 49-year-old female presents to the emergency department with chest pain shortness of breath, see HPI for detail past medical history, differential diagnose include but not limited to ACS, cardiac arrhythmia, electrolyte disturbance, costochondritis, PE, gastritis, GERD, anxiety type reaction, panic attack, pneumonia. I discussed patient case with the attending physician Will obtain troponin full cardiac workup proBNP D-dimer coagulation studies EKG chest x-ray and basic laboratory studies, will give 4 mg IV Zofran for nausea and 2 mg morphine for pain. CBC unremarkable I reviewed the patient's chest x-ray along the corresponding radiologic report no acute findings CMP unremarkable. Troponin is negative, D-dimer is -0.46. Reexamination of the patient at 7:09 PM, patient's states her chest pain is still present substernally will trial GI cocktail and obtain CT abdomen pelvis with contrast for evaluation as characterization. I reviewed the patient's CT of the abdomen pelvis with contrast along the corresponding radiologic report severe diffuse hepatic steatosis mild sigmoid diverticulosis identified no acute inflammatory process within the abdomen pelvis. I was notified by nursing staff that the patient chest pain improved with GI cocktail. Troponin is improved. Patient's pain is improved with GI cocktail discussed results of laboratory studies and imaging studies with the patient and at the bedside, patient is years criteria negative D-dimer negative. Patient cleared to be discharged home to self-care recommend follow-up with GI physician I will prescribe short course of Carafate for GI stress ulcer prophylaxis. She will take medication as prescribed. Patient return to the emergency department any worsening signs or symptoms. Patient voiced understanding of the current treatment plan/discharge plan. I was consulted by the FLASH, and we discussed the complexity of the problems being addressed.I approved the treatment and management plan for this patient?s care in the Emergency Department, thus performing a substantive portion of the medical decision making.Signed, Sheldon Bruce MD
[2024-11-05 17:28] LABS: Basophils # 0.1 K/mm3 (0-0.2); Basophils % 0.8 % (0.1-2.0); Eosinophils # 0.1 K/mm3 (0.0-0.4); Hematocrit 43.8 % (37.0-47.0); Hemoglobin 14.9 g/dL (12.2-16.2); Lymphocytes # 2.5 K/mm3 (0.7-4.5); Lymphocytes % 31.6 % (10-50); Mean Corpuscular HGB Conc 33.9 g/dL (31.8-35.4); Mean Corpuscular Hemoglobin 30.1 pg (27.0-31.2); Mean Corpuscular Volume 88.7 fl (81-99); Mean Platelet Volume 8.1 fl (7.4-10.4); Monocytes # 0.6 K/mm3 (0.1-1.0); Monocytes % 7.3 % (1.7-9.3); Neutrophils # 4.6 K/mm3 (1.8-7.8); Neutrophils % 59.4 % (37.0-80.0); Platelet Count 352 K/mm3 (142-424); Red Blood Count 4.94 M/mm3 (4.20-5.40); Red Cell Distribution Width 13.4 % (11.5-17.5); White Blood Count 7.8 K/mm3 (4.8-10.8)
[2024-11-05 17:33] LABS: INR 0.91 (0.9-1.1); Prothrombin Time 10.3 seconds (10.1-12.5)
[2024-11-05 17:39] LABS: Albumin Level 4.4 g/dl (3.5-5.0); Chloride 104 mmol/L (98-107); Potassium 3.7 mmoL/L (3.5-5.1); Sodium 135 mmol/L (136-145)
[2024-11-05 17:41] LABS: Alanine Aminotransferase 46 U/L (12-78); Aspartate Amino Transferase 31 U/L (14-36); Blood Urea Nitrogen 15 mg/dl (7-17); Creatinine Clearance Estimated 129 mL/min (50-200); Estimated Glomerular Filt Rate 89 ml/min (>60); GFR (African American) 108 ML/MIN (>60)
[2024-11-05 17:42] LABS: Albumin/Globulin Ratio 1.4 (1.1-1.8); Alkaline Phosphatase 124 U/L (38-126); Anion Gap 5.7 mEq/L (5-15); Bilirubin,Total 0.5 mg/dl (0.2-1.3); Calcium 9.3 mg/dl (8.4-10.2); Carbon Dioxide 29 mmol/L (22.0-30.0); Creatine Kinase 42 U/L (30-135); Globulin 3.2 g/dL (1.3-3.2); Glucose 110 mg/dl (74-100); Lipase 45 U/L (23-300); Total Protein,Serum 7.6 g/dl (6.3-8.2)
[2024-11-05 17:43] LABS: Magnesium 2.2 mg/dl (1.6-2.3)
[2024-11-05 17:50] LABS: D-Dimer 0.46 ug/mL (0.0-0.5)
[2024-11-05 18:05] LABS: Troponin I < 0.01 ng/ml (0.00-0.034)
[2024-11-05] MEDS: MORPHINE 2MG/ML SYRINGE 2 MG IV (18:12)
[2024-11-05] MEDS: ONDANSETRON 4MG/2ML VIAL 4 MG IV (18:13)
[2024-11-05] MEDS: BELLADONNA ALKALOIDS 60 ML ML PO (19:13)
--- NOTE | 2024-11-05 19:13 | CT_ITS ---
PROCEDURE INFORMATION: Exam: CT Abdomen And Pelvis With Contrast Exam date and time: 11/05/2024 8:05 PM Age: 49 years old Clinical indication: Abdominal pain; Epigastric; Additional info: Epigastric abdominal pain nausea TECHNIQUE: Imaging protocol: Computed tomography of the abdomen and pelvis with contrast. Radiation optimization: All CT scans at this facility use at least one of these dose optimization techniques: automated exposure control; mA and/or kV adjustment per patient size (includes targeted exams where dose is matched to clinical indication); or iterative reconstruction. Contrast material: ISOVUE; Contrast volume: 75 ml; Contrast route: IV; COMPARISON: CT ABDOMEN PELVIS W CON 02/21/2024 3:48 PM FINDINGS: Lungs: The visualized lung bases demonstrate no focal infiltrates. Liver: Severe diffuse hepatic steatosis is identified. Gallbladder and biliary ducts: The gallbladder is normal. There is no evidence of biliary ductal dilation. Pancreas: The pancreas is normal. Spleen: The spleen is normal. Adrenal glands: The adrenal glands appear within normal limits. Kidneys and ureters: The kidneys are normal. Stomach and bowel: Mild sigmoid diverticulosis identified. Appendix: No evidence of appendicitis. Intraperitoneal space: No free air. No evidence for focal fluid collection or ascites. No evidence for omental thickening. Vasculature: Unremarkable. No abdominal aortic aneurysm. Lymph nodes: Unremarkable. No pathologically enlarged lymph nodes are identified. Unremarkable. No pathologically enlarged lymph nodes are identified. Urinary bladder: The bladder appears within normal limits. No wall thickening. Reproductive: Simple left ovarian cyst measures 2.3 cm. The uterus and adnexal structures appear normal. Bones/joints: Unremarkable. No acute fracture. Soft tissues: The visualize subcutaneous soft tissues and abdominal wall and flank wall appear unremarkable. IMPRESSION: 1. Severe diffuse hepatic steatosis is identified. 2. Mild sigmoid diverticulosis identified. 3. No acute inflammatory process identified within the abdomen or pelvis.
[2024-11-05] MEDS: SODIUM CHLORIDE 0.9% 10ML SYR (RAD ONLY) 10 ML IV (20:06)
[2024-11-05] MEDS: IOPAMIDOL-370 (76%);100ML BOTTLE 75 ML IV (20:07)
[2024-11-05 21:13] LABS: Troponin I < 0.01 ng/ml (0.00-0.034)
[2024-11-05 21:39] VITALS: BP 102/68; PULSE 74; RESP 18; TEMP 37.1; O2SAT 97
== END 2024-11-05 21:46 | disposition home or self-care (01) ==
PROVIDERS: Physician Assistant; Emergency Provider Emergency Medicine; PCP Nurse Practitioner
DX: K21.9 Gastro-esophageal reflux disease without esophagitis (principal); R07.9 Chest pain, unspecified; R06.02 Shortness of breath; R05.9 Cough, unspecified; R11.0 Nausea; M25.512 Pain in left shoulder
CPT/HCPCS: 71045; 74177; 80053; 82550; 83690; 83735; 84484; 85025; 85378; 85610; 93005; 96374; 96375; 99285; J2270; J2405; Q9967

== ENCOUNTER 2024-12-10 13:41 | Emergency (ER) | payer OTHER, SELFPAY ==
--- NOTE | 2024-12-10 13:40 | ECG_ITS ---
APPROVED REPORT Exam: Resting ECG HR:75 bpm ECG Measurements Heart Rate 75 AXES NM 151 P 54 QRSd 97 QRS 5 QT 394 T 14 QTc 423 Conclusion Sinus rhythm Electronically signed by : ASMITA ASHLEY, 12/15/2024 22:34:12
[2024-12-10 13:44] VITALS: BP 162/102; PULSE 78; RESP 14; TEMP 36.6; O2SAT 99; BMI 38.3
--- NOTE | 2024-12-10 13:50 | XR_ITS ---
FINAL REPORT CLINICAL HISTORY: Shortness of breath, chest pain COMPARISON: 11/05/2024 FINDINGS: No acute pulmonary opacity is present. There is no evidence of effusion or pneumothorax. Mediastinum is unremarkable. Heart size is normal. IMPRESSION: No acute abnormality. Reviewed, Interpreted and Dictated by Zeyad Salvador MD Transcribed by Whitney Aguiar Authenticated and [facility]
--- NOTE | 2024-12-10 13:56 | PC.NURSE ---
portable radiology at
[2024-12-10 14:00] VITALS: PULSE 82; RESP 19; O2SAT 98
--- NOTE | 2024-12-10 14:02 | [facility].EDCP ---
Discharge Plan Disposition Patient Disposition: Home, Self-Care Chief Complaint: Chest Pain Prescriptions Prescriptions: No Action ranolazine 500 mg tablet extended release 12 hr 500 mg PO BID Qty: 60 5RF famotidine 20 mg tablet 20 mg PO DAILY nitroglycerin 0.4 mg tablet, sublingual 0.4 mg sublingual Q5-15M PRN (Reason: chest pain) Qty: 30 0RF Rx Instructions: do not exceed 3 doses per episode Creon 36,000-114,000- 180,000 unit capsule,delayed release(DR/EC) 1 cap PO BID Rx Instructions: administer with meals and/or snacks glipizide 5 mg tablet extended release 24hr 5 mg PO DAILY esomeprazole magnesium [Nexium] 40 mg capsule,delayed release(DR/EC) 40 mg PO DAILY Qty: 30 2RF metoprolol succinate 100 mg tablet extended release 24 hr 100 mg PO DAILY Qty: 90 2RF amlodipine 2.5 mg tablet 2.5 mg PO DAILY Qty: 90 3RF atorvastatin 80 mg tablet 80 mg PO DAILY Qty: 90 3RF isosorbide mononitrate 30 mg tablet extended release 24 hr 30 mg PO DAILY Qty: 90 2RF hydralazine 25 mg tablet See Rx Instructions .ROUTE .COMPLEX Qty: 270 1RF Dose Instruction: TAKE 1 TABLET BY MOUTH THREE TIMES DAILY NEEDED FOR HYPERTENSION Rx Instructions: TAKE 1 TABLET BY MOUTH THREE TIMES DAILY NEEDED FOR HYPERTENSION sucralfate [Carafate] 1 gram tablet 1 g PO ONCE Qty: 5 0RF aspirin 81 mg tablet,delayed release (DR/EC) 81 mg PO DAILY hydroxyzine pamoate 50 mg Capsule 50 mg PO TIDP PRN (Reason: Anxiety) buspirone 30 mg tablet 15 mg PO HS hydrochlorothiazide 25 mg tablet 25 mg PO BID 30 Days Qty: 60 0RF spironolactone 25 mg tablet 25 mg PO BID Qty: 60 0RF Referrals Follow up/Referrals: Provider,Referral, [Referring] - See instructions Activity Restrictions/Add. Instructions Additional Instructions/Restrictions: Call your family doctor to establish care for this visit to the emergency department and schedule follow-up within 48 hours to ensure improvement. If you have any worsening of your condition or any other concerning signs or symptoms, return to the emergency department or your primary care doctor for further evaluation. Clinical Impressions Clinical Impression: Chest pain Print Language Print Language: Sinhala Discharge ED Provider: John [facility] Chief Complaint: Chest Pain Stated Complaint: Chest Pain Time Seen by Provider: 12/10/24 13:43 Mode of Arrival: Ambulatory Source of Information: Patient Limitations: No Limitations Description of Symptoms (Recalled from ER Triage Doc. by RN): pt states she was sent in here by her PCP Laura Cobian. pt reports running out of her metoprolol 3d ago. 3d ago she started having sternal chest pain that radiates laterally and distal in her LUE. pt states her pain is 5/10 and sharp/pressure in nature. pt states she restarted her metoprolol yesterday and has had some relief. pt reports she had 1 cardiac stent placed 2 years ago during a routine heart cath. pt also c/o lower back discomfort. pt reports a few days ago she possibly had some blood in her urine. pt has no other urinary symptoms. History of Present Illness HPI narrative: Please note that above description of symptoms, in this electronic medical record under categorization of recalled from ER triage doctor by RN are reflective of an initial nursing assessment, however, is not reflective of my full history and physical exam that was personally taken and clarified. Consequentially, this preceding description of symptoms, which may include the patient's categorized chief complaint in the EMR, do not reflect my personal clinical impression, and the ultimate description of history of present illness and patient stated complaints should be deferred to this section of the note. Unless stated otherwise or congruent with this section of the note, additional signs, symptoms, or incongruence should be interpreted as inaccurate with my clinical impression. Related Data Home Medications ?Medication ?Instructions ?Recorded ?Confirmed aspirin 81 mg tablet,delayed 81 mg PO DAILY 12/14/23 09/22/24 release hydroxyzine pamoate 50 mg capsule 50 mg PO TIDP PRN Anxiety 12/14/23 09/22/24 buspirone 30 mg tablet 15 mg PO HS 12/15/23 09/22/24 [id number] 1 cap PO BID 03/25/24 09/22/24 36,000-114,000-180,000 unit capsule,delay rel (Creon) glipizide 5 mg tablet, extended 5 mg PO DAILY 07/09/24 09/22/24 release 24 hr famotidine 20 mg tablet 20 mg PO DAILY 09/22/24 09/22/24 Previous Rx's ?Medication ?Instructions ?Recorded nitroglycerin 0.4 mg sublingual 0.4 mg sublingual Q5-15M PRN chest 01/28/24 tablet pain #30 tabs hydrochlorothiazide 25 mg tablet 25 mg PO BID 30 days #60 tabs 03/21/24 spironolactone 25 mg tablet 25 mg PO BID #60 tabs 03/21/24 ranolazine 500 mg tablet,extended 500 mg PO BID #60 tabs 04/03/24 release,12 hr metoprolol succinate 100 mg 100 mg PO DAILY #90 tabs 05/14/24 tablet,extended release 24 hr esomeprazole magnesium 40 mg 40 mg PO DAILY #30 caps 07/09/24 capsule,delayed release (Nexium) amlodipine 2.5 mg tablet 2.5 mg PO DAILY #90 tabs 09/17/24 atorvastatin 80 mg tablet 80 mg PO DAILY #90 tabs 09/17/24 isosorbide mononitrate 30 mg 30 mg PO DAILY #90 tabs 10/14/24 tablet,extended release 24 hr hydralazine 25 mg tablet See Rx Instructions .Route 10/15/24 .COMPLEX #270 tabs sucralfate 1 gram tablet (Carafate) 1 g PO ONCE #5 tabs 11/05/24 Allergies Allergy/AdvReac Type Severity Reaction Status Date / Time lisinopril Allergy Hives Verified 12/10/24 13:53 oxycodone (From Percocet) Allergy Hives Verified 12/10/24 13:53 Sulfa (Sulfonamide Allergy Hives Verified 12/10/24 13:53 Antibiotics) [facility] Disclaimer: The information contained in this section may have been updated after the patient was seen, as this information can be updated by other users. 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, 2001, status post laser surgeries Brain fog Known side effect of topiramate History of nephrolithiasis Least 3?5 kidney stones, recommend avoiding topiramate Family history of brain aneurysm Both mother and paternal grandfather, patient denies prior aneurysm screening Carpal tunnel syndrome of left wrist GERD (gastroesophageal reflux disease) Hypoglycemia Cervical cancer HISTORY OF Ovarian cancer HISTORY OF Hypertension Surgical History History of cardiac cath H/O LEEP History of Family History Other Family history of diabetes mellitus type II Family history of hyperlipidemia Family history of hypertension Social History Smoking Status: Former smoker smoking status stop date: Oct 2023 alcohol intake: never substance use type: denies use current occupational status: unemployed Travel in the last 8 weeks: None household members: significant other housing: house marital status: single Have you lived/traveled outside [place] in past 30 days?: No Contact w/someone who lives/traveled outside [place] past 30 days?: No Exposure to someone with infectious disease in past 14 days?: No Do you have a fever (greater than 100.4 F or 38 C)?: No Have you tested positive for COVID-19: No Exposed to someone with COVID-19 in past 14 days?: No Do you have a sore throat?: No Do you have a cough?: No Do you have any weakness?: No Do you have any diarrhea?: No Are you experiencing any unusual bleeding?: No Do you have any muscle aches/pain?: No Do you have any abdominal pain?: No Are you experiencing loss of taste or smell?: No Other Medical History Have you received the Flu Vaccine for this season: No Have you received the Pneumonia Vaccine: No ROS Obtained: Yes All systems reviewed & no additional complaints except as documented Physical Exam General General appearance: alert, in no apparent distress and obese Neck Neck exam: Present trachea midline Chest Chest inspection: Present normal inspection and symmetric chest wall rise Respiratory Respiratory exam: Present normal lung sounds bilaterally and other (Speaking in full sentences); Absent respiratory distress, wheezes, stridor, accessory muscle use or prolonged expiratory phase Cardiovascular Cardiovascular exam: Present regular rate, normal rhythm and other (Pulses equal and symmetric in upper and lower extremities) Extremities Exam Extremities exam: Absent edema Neurological Exam Neurological exam: Present alert, oriented X3 and CN II-XII intact Skin Skin exam: Present warm and dry; Absent cyanosis, diaphoresis or pallor HEART Score HEART Score HEART Score assessment performed?: Yes History (anamnesis): Slightly suspicious ECG: Normal Age: 45-65 years Risk factors: 3 or more risk factors Troponin: </= normal limit HEART Score: 3 Procedures Limited Ultrasound Indication:: Limited cardiac ultrasound Indication: Chest pain, palpitations Identified cardiac views: -Cardiac parasternal long axis -Cardiac parasternal short axis Findings: -Cardiac activity present -Gross wall motion normal -Pericardial effusion absent -Right heart strain absent Impression: -Normal cardiac ultrasound with no acute abnormalities. Globally normal systolic function with no focal wall abnormalities Images were saved to permanent archive The study was technically adequate CPT: 98663 This study was performed by me, and I personally interpreted all images/videos. Based on my clinical judgement, these images were adequate and did not necessitate further imaging Critical Care Critical Care Time Critical Care Time: No Medical Decision Making Medical Records Medical records reviewed: Yes I reviewed the patient's medical records. Billy Inquiry Pt receiving controlled substance: No Billy was queried for this patient: No Vital Signs Vital Signs: 12/10/24 13:44 12/10/24 14:00 12/10/24 14:30 Temperature 98 F Temperature Source Oral Pulse Rate 82 80 Pulse Rate [Left] 78 Respiratory Rate 14 19 18 Blood Pressure 130/96 H Blood Pressure [Right Arm] 162/102 H Blood Pressure Mean [Right Arm] 122 Blood Pressure Source [Right Arm] Automatic Cuff Blood Pressure Position [Right Arm] Sitting 02 Sat by Pulse Oximetry 99 98 96 Oxygen Delivery Method Room Air Room Air Room Air Lab Data Labs: Lab Results 12/10/24 14:10: WBC 7.1, RBC 4.76, Hgb 14.0, Hct 41.7, MCV 87.6, MCH 29.4, MCHC 33.6, RDW 13.5, Plt Count 360, MPV 10.0, Neut % (Auto) 56.7, Lymph % (Auto) 32.2, [place] % (Auto) 8.6, Eos % (Auto) 1.8, Baso % (Auto) 0.6, Neut # (Auto) 4.0, Lymph # (Auto) 2.3, [place] # (Auto) 0.6, Eos # (Auto) 0.1, Baso # (Auto) 0.0, Sodium 138, Potassium 4.0, Chloride 102, Carbon Dioxide 27, Anion Gap 13.0, BUN 13, Creatinine 0.60, Estimated Creat Clear 154, Estimated GFR 106, Est GFR ( Amer) 129, Glucose 178 H, Calcium 9.5, Total Bilirubin 0.6, AST 34, ALT 54, Alkaline Phosphatase 114, Troponin I < 0.01, Total Protein 7.6, Albumin 4.5, Globulin 3.1, Albumin/Globulin Ratio 1.5, Lipase 47 12/10/24 14:10 12/10/24 14:10 Response Orders (Tests/Meds): ED MEDICATIONS Discontinued Medications Generic Name Dose Route Start Last Admin Trade Name Corey PRN Reason Stop Dose Admin Aspirin 324 mg 12/10/24 13:50 12/10/24 14:05 Aspirin 81mg Chewable Tablet PO 12/10/24 13:51 324 mg ONCE ONE Administration ORDERS Category Date Time Status POCUS Point of Care (ER Only) Stat Exams 12/10/24 13:50 Completed XR chest portable Stat Exams 12/10/24 13:50 Completed Complete Blood Count Auto Diff Stat Lab 12/10/24 14:10 Completed Comprehensive Metabolic Panel Stat Lab 12/10/24 14:10 Completed Lipase Stat Lab 12/10/24 14:10 Completed PT INR [Prothrombin Time INR] Stat Lab 12/10/24 14:10 Received PTT [Activated Partial Thrombo Time] Stat Lab 12/10/24 14:10 Received Troponin I Q3H Lab 12/10/24 17:00 Ordered Troponin I Q3H Lab 12/10/24 20:00 Ordered Troponin I Stat Lab 12/10/24 14:10 Completed MDM Narrative Medical Decision Narrative: 49-year-old female history of CAD status post stenting, obesity, hypertension, diastolic heart failure presenting with chest pain. Patient states that she was unable to get her metoprolol for the past 3 days. Finally able to get it today. For the past 3 days she has had palpitations, hypertension and chest pains. Chest pains getting worse through today. They seem to be rate related, not positional. No diaphoresis, shortness of breath, nausea, vomiting, but today's chest pain was a little different than what she is used to. It was bilateral parasternal, radiated to both shoulders. Currently mild. History was obtained via conversation with patient. On arrival, patient hemodynamically stable, alert, oriented x4, appropriate, GCS 15, moving all extremities spontaneously, pupils equal and reactive to light. Full physical exam performed and significant for well-appearing female no acute distress speaking full sentences and very clinically well-appearing. She is mildly hypertensive, but nontachycardic. Lungs are clear. Cardiac exam without murmurs gallops or rubs. No lower extremity edema. Pulses equal and symmetric in upper and lower extremities without delay, neurologically intact and ambulatory. Differential includes anxiety, palpitations, CHF, ACS, [place], pneumonia, bronchitis, dyspepsia, pancreatitis, among others. Patient was given aspirin for symptomatic management and correction of underlying abnormalities. Patient placed on continuous cardiac monitoring and continuous pulse ox with initial blood pressure 162/102, heart rate 78, saturation 99% on room air. Independent interpretation of EKG shows sinus rhythm 75 bpm with [place] 151, QRS 97, QTc 423 with normal axis. No acute ischemic change. Workup independently interpreted and significant for actionable CBC or chemistry, initial troponin negative BNP negative. On independent interpretation of imaging, no acute cardiopulmonary airspace disease on chest x-ray. See radiology read for full review of final results. Heart score 3, PERC score negative. Bedside [id number] ultrasound negative for any acute abnormality. On reevaluation, patient resting at her baseline, no acute changes from her arrival. Given patient presentation, workup, history, this most likely represents cardiac versus noncardiac chest pain. Unable to determine etiology, but I feel confident this is not acute cardiac ischemia today. Since pain has been going on for 3 days or more, delta troponin not deemed necessary. Appropriate for outpatient management with heart score of 3. Because patient at baseline without signs or symptoms of clinical decompensation, deemed appropriate for discharge. Results were relayed to patient who voiced understanding and were agreeable to outpatient management and follow up. I discussed my clinical impression with patient and answered all questions. At this time, the evidence for any other entities in the differential is insufficient to warrant any further testing or ED observation. This was explained as well. Advisory was given that persistent or worsening symptoms require further evaluation. I confirmed the understanding of this discussion. Vitamin Manager disclaimer Much of this encounter note is an electronic ice handler spoken language to printed text. Electronic ice handler of the spoken language may permit errors. Although I have reviewed the note, some errors may still exist.
[2024-12-10] MEDS: ASPIRIN 81MG CHEWABLE TABLET 324 MG PO (14:05)
[2024-12-10 14:24] LABS: Basophils % 0.6 % (0.1-2.0); Eosinophils # 0.1 K/mm3 (0.0-0.4); Eosinophils % 1.8 % (0.1-12.0); Hematocrit 41.7 % (37.0-47.0); Lymphocytes # 2.3 K/mm3 (0.7-4.5); Lymphocytes % 32.2 % (10-50); Mean Corpuscular HGB Conc 33.6 g/dL (31.8-35.4); Mean Corpuscular Hemoglobin 29.4 pg (27.0-31.2); Mean Corpuscular Volume 87.6 fl (81-99); Monocytes # 0.6 K/mm3 (0.1-1.0); Monocytes % 8.6 % (1.7-9.3); Neutrophils % 56.7 % (37.0-80.0); Platelet Count 360 K/mm3 (142-424); Red Blood Count 4.76 M/mm3 (4.20-5.40); Red Cell Distribution Width 13.5 % (11.5-17.5); White Blood Count 7.1 K/mm3 (4.8-10.8)
[2024-12-10 14:30] VITALS: BP 130/96; PULSE 80; RESP 18; O2SAT 96
[2024-12-10 14:30] LABS: Alanine Aminotransferase 54 U/L (12-78); Albumin Level 4.5 g/dl (3.5-5.0); Albumin/Globulin Ratio 1.5 (1.1-1.8); Alkaline Phosphatase 114 U/L (38-126); Aspartate Amino Transferase 34 U/L (14-36); Bilirubin,Total 0.6 mg/dl (0.2-1.3); Blood Urea Nitrogen 13 mg/dl (7-17); Calcium 9.5 mg/dl (8.4-10.2); Carbon Dioxide 27 mmol/L (22.0-30.0); Chloride 102 mmol/L (98-107); Creatinine Clearance Estimated 154 mL/min (50-200); Estimated Glomerular Filt Rate 106 ml/min (>60); GFR (African American) 129 ML/MIN (>60); Globulin 3.1 g/dL (1.3-3.2); Glucose 178 mg/dl (74-100); Sodium 138 mmol/L (136-145); Total Protein,Serum 7.6 g/dl (6.3-8.2)
[2024-12-10 14:49] LABS: Lipase 47 U/L (23-300)
[2024-12-10 14:51] LABS: Troponin I < 0.01 ng/ml (0.00-0.034)
[2024-12-10 15:15] VITALS: BP 123/86; PULSE 72; RESP 14; TEMP 36.6; O2SAT 96
[2024-12-10 15:21] LABS: Activated Partial Thrombo Time 24.5 seconds (22.5-28.5)
[2024-12-10 15:34] LABS: INR 0.89 (0.9-1.1); Prothrombin Time 9.9 seconds (9.2-12.1)
== END 2024-12-10 15:25 | disposition home or self-care (01) ==
PROVIDERS: Emergency Provider Emergency Medicine; PCP Nurse Practitioner
DX: R07.9 Chest pain, unspecified (principal); M54.50 Low back pain, unspecified
CPT/HCPCS: 71045; 80053; 83690; 84484; 85025; 85610; 85730; 93005; 99284

== ENCOUNTER 2025-01-12 13:11 | Outpatient (CLI) | payer OTHER, SELFPAY ==
--- NOTE | 2025-01-12 13:14 | MM_ITS ---
PROCEDURE INFORMATION: Exam: MG Bilateral Screening 3D Mammography Exam date and time: 01/12/2025 1:34 PM Age: 49 years old Clinical indication: Screening examination TECHNIQUE: Imaging protocol: Bilateral Screening tomosynthesis and 2D mammography including computer-aided detection (CAD) when performed. COMPARISON: MG MM MAMMO DIGITAL ADRIANNE SCREEN BILAT 01/04/2024 1:45 PM FINDINGS: MAMMOGRAPHY: Breast composition: There are scattered areas of fibroglandular density. Mass: None. Architectural distortion: None. Calcifications: No suspicious calcifications. Asymmetric density: None. Skin thickening: None. Axillary adenopathy: None. IMPRESSION: No mammographic evidence of malignancy. Annual screening is recommended unless otherwise clinically indicated. ASSESSMENT: BI-RADS Category 1: Negative.
== END 2025-01-12 23:59 | disposition home or self-care (01) ==
LOC: RAD 13:12
PROVIDERS: PCP Nurse Practitioner; Visit Provider Nurse Practitioner
DX: Z12.31 Encounter for screening mammogram for malignant neoplasm of breast (principal)
CPT/HCPCS: 77063; 77067

== ENCOUNTER 2025-01-22 14:42 | Emergency (ER) | payer OTHER, SELFPAY ==
[2025-01-22 14:44] VITALS: BP 177/112; PULSE 72; RESP 18; TEMP 36.8; O2SAT 98; BMI 39.9
--- NOTE | 2025-01-22 14:48 | XR_ITS ---
FINAL REPORT CLINICAL HISTORY: chest pain, left sided COMPARISON: 03/19/2024 FINDINGS: PA and lateral views of the chest were obtained. No acute pulmonary density is evident. There is no evidence of effusion or other pleural disease. The mediastinum has a normal appearance. The cardiac silhouette is unremarkable. IMPRESSION: Unremarkable chest exam. Reviewed, Interpreted and Dictated by Zeyad Salvador MD Transcribed by Whitney Aguiar Authenticated and [facility]
--- NOTE | 2025-01-22 14:50 | ECG_ITS ---
APPROVED REPORT Exam: Resting ECG HR:73 bpm ECG Measurements Heart Rate [address] 153 P 60 QRSd 106 QRS 15 QT 411 T 17 QTc 437 Conclusion Sinus rhythm Electronically signed by : ASMITA ASHLEY, 01/22/2025 20:27:48
--- NOTE | 2025-01-22 15:06 | [facility].EDCP ---
Discharge Plan Disposition Patient Disposition: Home, Self-Care Chief Complaint: Chest Pain Prescriptions Prescriptions: No Action famotidine 20 mg tablet 20 mg PO DAILY nitroglycerin 0.4 mg tablet, sublingual 0.4 mg sublingual Q5-15M PRN (Reason: chest pain) Qty: 30 0RF Rx Instructions: do not exceed 3 doses per episode glipizide 5 mg tablet extended release 24hr 5 mg PO DAILY esomeprazole magnesium [Nexium] 40 mg capsule,delayed release(DR/EC) 40 mg PO DAILY Qty: 90 3RF Creon 36,000-114,000- 180,000 unit capsule,delayed release(DR/EC) 2 cap PO .COMPLEX Qty: 720 3RF Rx Instructions: 2 caps orally with meals and 1 with snacks sucralfate [Carafate] 1 gram tablet 1 g PO Q6H PRN (Reason: dyspepsia) Qty: 90 5RF metoprolol succinate 100 mg tablet extended release 24 hr 100 mg PO DAILY Qty: 90 2RF amlodipine 2.5 mg tablet 2.5 mg PO DAILY Qty: 90 3RF hydralazine 25 mg tablet See Rx Instructions .ROUTE .COMPLEX Qty: 270 1RF Dose Instruction: TAKE 1 TABLET BY MOUTH THREE TIMES DAILY NEEDED FOR HYPERTENSION Rx Instructions: TAKE 1 TABLET BY MOUTH THREE TIMES DAILY NEEDED FOR HYPERTENSION ranolazine 500 mg tablet extended release 12 hr 500 mg PO BID Qty: 60 5RF hydrochlorothiazide 25 mg tablet 25 mg PO BID 30 Days Qty: 60 5RF aspirin 81 mg tablet,delayed release (DR/EC) 81 mg PO DAILY 90 Days Qty: 90 3RF hydroxyzine pamoate 50 mg capsule 50 mg PO TIDP PRN (Reason: Anxiety) Qty: 90 1RF isosorbide mononitrate 30 mg tablet extended release 24 hr 30 mg PO DAILY Qty: 90 2RF atorvastatin 80 mg tablet 80 mg PO DAILY Qty: 90 3RF clopidogrel 75 mg tablet 75 mg PO DAILY Qty: 90 3RF buspirone 30 mg tablet 15 mg PO HS spironolactone 25 mg tablet 25 mg PO BID Qty: 60 0RF Referrals Follow up/Referrals: Laura Cobian, OCEANOGRAPHER ASSISTANT [Primary Care Provider] - See instructions Víctor Reyes MD [Staff Physician] - See instructions Activity Restrictions/Add. Instructions Additional Instructions/Restrictions: Follow-up with cardiology, call them to schedule an appointment to further workup your chest pain. Your last catheterization was just over a year ago and, per report, no concerns at that time. Minimal narrowing of left anterior descending artery. Talk to cardiology about elevated blood pressure and crucial need to treat this to prevent problems over time. Call your family doctor to establish care for this visit to the emergency department and schedule follow-up within 48 hours to ensure improvement. If you have any worsening of your condition or any other concerning signs or symptoms, return to the emergency department or your primary care doctor for further evaluation. Clinical Impressions Clinical Impression: Chest pain, Hypertension Print Language Print Language: [place] Discharge ED Provider: John Redding General Chief Complaint: Chest Pain Stated Complaint: Chest pain Time Seen by Provider: 01/22/25 15:05 Mode of Arrival: Ambulatory Source of Information: Patient Limitations: No Limitations Description of Symptoms (Recalled from ER Triage Doc. by RN): Pt presents for evaluation of left sided chest pain that radiates down her left arm. Pt states her chest pain started yesterday but has progressively become worse over the last couple hours. . Pt rates pain as a 7/10. Pt states she has nausea and feels lightheaded. Pt has a hx of hypertension. History of Present Illness HPI narrative: Please note that above description of symptoms, in this electronic medical record under categorization of recalled from ER triage doctor by RN are reflective of an initial nursing assessment, however, is not reflective of my full history and physical exam that was personally taken and clarified. Consequentially, this preceding description of symptoms, which may include the patient's categorized chief complaint in the EMR, do not reflect my personal clinical impression, and the ultimate description of history of present illness and patient stated complaints should be deferred to this section of the note. Unless stated otherwise or congruent with this section of the note, additional signs, symptoms, or incongruence should be interpreted as inaccurate with my clinical impression. Related Data Home Medications ?Medication ?Instructions ?Recorded ?Confirmed buspirone 30 mg tablet 15 mg PO HS 12/15/23 01/13/25 glipizide 5 mg tablet, extended 5 mg PO DAILY 07/09/24 01/13/25 release 24 hr famotidine 20 mg tablet 20 mg PO DAILY 09/22/24 01/13/25 Previous Rx's ?Medication ?Instructions ?Recorded nitroglycerin 0.4 mg sublingual 0.4 mg sublingual Q5-15M PRN chest 01/28/24 tablet pain #30 tabs spironolactone 25 mg tablet 25 mg PO BID #60 tabs 03/21/24 metoprolol succinate 100 mg 100 mg PO DAILY #90 tabs 05/14/24 tablet,extended release 24 hr amlodipine 2.5 mg tablet 2.5 mg PO DAILY #90 tabs 09/17/24 hydralazine 25 mg tablet See Rx Instructions .Route 10/15/24 .COMPLEX #270 tabs hydrochlorothiazide 25 mg tablet 25 mg PO BID 30 days #60 tabs 12/23/24 ranolazine 500 mg tablet,extended 500 mg PO BID #60 tabs 12/23/24 release,12 hr aspirin 81 mg tablet,delayed 81 mg PO DAILY 90 days #90 tabs 01/13/25 release esomeprazole magnesium 40 mg 40 mg PO DAILY #90 caps 01/13/25 capsule,delayed release (Nexium) [id number] 2 cap PO .COMPLEX #720 caps 01/13/25 36,000-114,000-180,000 unit capsule,delay rel (Creon) sucralfate 1 gram tablet (Carafate) 1 g PO Q6H PRN dyspepsia #90 tabs 01/13/25 hydroxyzine pamoate 50 mg capsule 50 mg PO TIDP PRN Anxiety #90 caps 01/19/25 isosorbide mononitrate 30 mg 30 mg PO DAILY #90 tabs 01/19/25 tablet,extended release 24 hr atorvastatin 80 mg tablet 80 mg PO DAILY #90 tabs 01/21/25 clopidogrel 75 mg tablet 75 mg PO DAILY #90 tabs 01/21/25 Allergies Allergy/AdvReac Type Severity Reaction Status Date / Time lisinopril Allergy Hives Verified 01/13/25 12:17 oxycodone (From Percocet) Allergy Hives Verified 01/13/25 12:17 Sulfa (Sulfonamide Allergy Hives Verified 01/13/25 12:17 Antibiotics) [facility] Disclaimer: The information contained in this section may have been updated after the patient was seen, as this information can be updated by other users. 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, 2002, status post laser surgeries Brain fog Known side effect of topiramate History of nephrolithiasis Least 3?5 kidney stones, recommend avoiding topiramate Family history of brain aneurysm Both mother and paternal grandfather, patient denies prior aneurysm screening Carpal tunnel syndrome of left wrist GERD (gastroesophageal reflux disease) Hypoglycemia Cervical cancer HISTORY OF Ovarian cancer HISTORY OF Hypertension Surgical History History of cardiac cath H/O LEEP History of Family History Other Family history of diabetes mellitus type II Family history of hyperlipidemia Family history of hypertension Social History Smoking Status: Never smoker smoking status stop date: Oct 2023 alcohol intake: never substance use type: denies use current occupational status: unemployed Travel in the last 8 weeks: None household members: significant other housing: house marital status: single Have you lived/traveled outside [place] in past 30 days?: No Contact w/someone who lives/traveled outside US past 30 days?: No Exposure to someone with infectious disease in past 14 days?: No Do you have a fever (greater than 100.4 F or 38 C)?: No Have you tested positive for COVID-19: No Exposed to someone with COVID-19 in past 14 days?: No Do you have a sore throat?: No Do you have a cough?: No Do you have any weakness?: No Do you have any diarrhea?: No Are you experiencing any unusual bleeding?: No Do you have any muscle aches/pain?: No Do you have any abdominal pain?: No Are you experiencing loss of taste or smell?: No Other Medical History Have you received the Flu Vaccine for this season: No Have you received the Pneumonia Vaccine: No ROS Obtained: Yes All systems reviewed & no additional complaints except as documented Physical Exam General General appearance: alert Neck Neck exam: Present trachea midline Chest Chest inspection: Present normal inspection and symmetric chest wall rise Respiratory Respiratory exam: Present normal lung sounds bilaterally; Absent respiratory distress, wheezes, stridor, accessory muscle use or prolonged expiratory phase Cardiovascular Cardiovascular exam: Present regular rate, normal rhythm and other (Pulses equal and symmetric in upper and lower extremities) Extremities Exam Extremities exam: Absent edema Neurological Exam Neurological exam: Present alert, oriented X3 and CN II-XII intact Skin Skin exam: Present warm and dry; Absent cyanosis, diaphoresis or pallor HEART Score HEART Score HEART Score assessment performed?: Yes History (anamnesis): Moderately suspicious ECG: Normal Age: 45-65 years Risk factors: 3 or more risk factors Troponin: </= normal limit HEART Score: 4 Critical Care Critical Care Time Critical Care Time: No Medical Decision Making Medical Records Medical records reviewed: Yes I reviewed the patient's medical records. Billy Inquiry Pt receiving controlled substance: No Billy was queried for this patient: No Vital Signs Vital Signs: 01/22/25 14:44 Temperature 98.3 F Temperature Source Oral Pulse Rate [Right] 72 Respiratory Rate 18 Blood Pressure [Right Arm] 177/112 H Blood Pressure Mean [Right Arm] 133 Blood Pressure Source [Right Arm] Automatic Cuff Blood Pressure Position [Right Arm] Sitting 02 Sat by Pulse Oximetry 98 Oxygen Delivery Method Room Air Lab Data Labs: Lab Results 01/22/25 15:28: WBC 7.2, RBC 4.59, Hgb 13.9, Hct 39.9, MCV 86.9, MCH 30.3, MCHC 34.8, RDW 13.8, Plt Count 350, MPV 10.0, Neut % (Auto) 61.7, Lymph % (Auto) 27.1, Ida % (Auto) 9.2, Eos % (Auto) 1.5, Baso % (Auto) 0.4, Neut # (Auto) 4.4, Lymph # (Auto) 2.0, Ida # (Auto) 0.7, Eos # (Auto) 0.1, Baso # (Auto) 0.0, Sodium 135 L, Potassium 4.2, Chloride 104, Carbon Dioxide 24, Anion Gap 11.2, BUN 14, Creatinine 0.50 L, Estimated Creat Clear 193, Estimated GFR 131, Est GFR ( Amer) 159, Glucose 210 H, Calcium 9.0, Total Bilirubin 0.7, AST 29, ALT 52, Alkaline Phosphatase 87, Troponin I < 0.01, Total Protein 7.4, Albumin 4.6, Globulin 2.8, Albumin/Globulin Ratio 1.6, Triglycerides 259 H, Cholesterol 150, LDL Cholesterol Direct 66.84 L, VLDL Cholesterol 52 H, HDL Cholesterol 40, Cholesterol/HDL Ratio 3.8 H 01/22/25 15:28 01/22/25 15:28 Response Orders (Tests/Meds): ED MEDICATIONS Generic Name Dose Route Start Last Admin Trade Name Corey PRN Reason Stop Dose Admin Aspirin 324 mg 01/22/25 16:10 01/22/25 16:10 Aspirin 81mg Chewable Tablet PO 01/22/25 16:11 324 mg ONCE ONE Administration Discontinued Medications Generic Name Dose Route Start Last Admin Trade Name Freq PRN Reason Stop Dose Admin Aspirin 243 mg 01/22/25 15:47 Aspirin 325mg Tablet PO 01/22/25 15:48 ONCE ONE ORDERS Category Date Time Status XR chest 2V Stat Exams 01/22/25 14:48 Completed Complete Blood Count Auto Diff Stat Lab 01/22/25 15:28 Completed Comprehensive Metabolic Panel Stat Lab 01/22/25 15:28 Completed HCG Qualitative, Serum Stat Lab 01/22/25 15:28 Received Lipid Panel Stat Lab 01/22/25 15:28 Completed Troponin I Q3H Lab 01/22/25 18:00 Ordered Troponin I Q3H Lab 01/22/25 21:00 Ordered Troponin I Stat Lab 01/22/25 15:28 Completed MDM Narrative Medical Decision Narrative: 49-year-old female with history of hypertension, hyperlipidemia, CAD status stenting, sleep apnea obesity, type 2 diabetes presenting with chest pain. Patient has numerous visits to the emergency department for similar pains frequently. She states that this pain started yesterday, 01/21 in the PM. He started with left-sided neck pain. Since that time, neck pain largely resolved, but she started having left-sided chest pains that went down into her left hand earlier today after waking up. No shortness of breath, nausea, vomiting, diaphoresis. States that she has been chilled, but this is normal and has not been having fevers. No cough or any other infectious symptoms. No lower extremity edema. No left lower extremity symptoms. History was obtained via conversation with patient. On arrival, patient hemodynamically stable, alert, oriented x4, appropriate, GCS 15, moving all extremities spontaneously, pupils equal and reactive to light. Full physical exam performed and significant for very clinically well-appearing female no acute distress. Heart and lungs clear to auscultation. No murmurs gallops or rubs. No JVD. No lower extremity edema. No adventitious lung sounds. Abdomen soft, nontender, nondistended.Neurologically intact. Differential includes illness anxiety disorder, microvascular coronary artery disease, CHF, ACS, MS, coronary artery dissection, pneumothorax, PE, dissection, pericarditis, myocarditis, pneumothorax, aortic aneurysm, pneumonia, bronchitis, among others. Patient was given aspirin load for symptomatic management and correction of underlying abnormalities. Patient placed on continuous cardiac monitoring and continuous pulse ox with initial blood pressure 177/112, heart rate 72, saturation 98% on room air. Independent interpretation of EKG shows sinus rhythm 73 bpm with ME 153, QRS 106, QTc 437. Normal axis, no acute ischemic change, unremarkable exam overall. Workup independently interpreted and significant for nonactionable CBC or chemistry. Patient's troponin negative, lipid panel with mildly elevated labs. Patient already on maximal therapy. On independent interpretation of imaging, no acute cardiac or pulmonary disease on chest x-ray. See radiology read for full review of final results. Heart score 4. PERC negative. On reevaluation, patient resting comfortably no acute complaints and states that discomfort is still there, but minimal in intensity. On independent review and interpretation of patient's most recent cardiac catheterization 12/20/2023, widely patent arteries. I feel this is unlikely to be related coronary artery disease, however it was discussed with patient that this could be cardiac disease and she needs to follow-up with cardiology. Given patient presentation, workup, history, this most likely represents true physiologic chest pain (cardiac versus noncardiac) versus illness anxiety disorder. [employer] disclaimer Much of this encounter note is an electronic film masker spoken language to printed text. Electronic film masker of the spoken language may permit errors. Although I have reviewed the note, some errors may still exist.
--- NOTE | 2025-01-22 15:27 | PC.NURSE ---
rounded on the pt. the pt voices that she does not need anything at this time. call light is within reach of the pt.
[2025-01-22 15:34] LABS: Basophils % 0.4 % (0.1-2.0); Eosinophils # 0.1 K/mm3 (0.0-0.4); Eosinophils % 1.5 % (0.1-12.0); Hematocrit 39.9 % (37.0-47.0); Hemoglobin 13.9 g/dL (12.2-16.2); Lymphocytes % 27.1 % (10-50); Mean Corpuscular HGB Conc 34.8 g/dL (31.8-35.4); Mean Corpuscular Hemoglobin 30.3 pg (27.0-31.2); Mean Corpuscular Volume 86.9 fl (81-99); Monocytes # 0.7 K/mm3 (0.1-1.0); Monocytes % 9.2 % (1.7-9.3); Neutrophils # 4.4 K/mm3 (1.8-7.8); Neutrophils % 61.7 % (37.0-80.0); Platelet Count 350 K/mm3 (142-424); Red Blood Count 4.59 M/mm3 (4.20-5.40); Red Cell Distribution Width 13.8 % (11.5-17.5); White Blood Count 7.2 K/mm3 (4.8-10.8)
[2025-01-22 15:45] LABS: Alanine Aminotransferase 52 U/L (12-78); Albumin Level 4.6 g/dl (3.5-5.0); Albumin/Globulin Ratio 1.6 (1.1-1.8); Alkaline Phosphatase 87 U/L (38-126); Anion Gap 11.2 mEq/L (5-15); Aspartate Amino Transferase 29 U/L (14-36); Bilirubin,Total 0.7 mg/dl (0.2-1.3); Blood Urea Nitrogen 14 mg/dl (7-17); Carbon Dioxide 24 mmol/L (22.0-30.0); Chloride 104 mmol/L (98-107); Chol/HDL Ratio 3.8 (1-3.5); Cholesterol 150 mg/dl (140-200); Creatinine Clearance Estimated 193 mL/min (50-200); Estimated Glomerular Filt Rate 131 ml/min (>60); GFR (African American) 159 ML/MIN (>60); Globulin 2.8 g/dL (1.3-3.2); Glucose 210 mg/dl (74-100); HDL Cholesterol 40 mg/dl (40-60); Potassium 4.2 mmoL/L (3.5-5.1); Sodium 135 mmol/L (136-145); Total Protein,Serum 7.4 g/dl (6.3-8.2); Triglycerides 259 mg/dl (30-150); VLDL Cholesterol 52 mg/dL (0-40)
[2025-01-22 15:56] LABS: Direct LDL Cholesterol 66.84 mg/dL (100-129)
[2025-01-22 16:03] LABS: Troponin I < 0.01 ng/ml (0.00-0.034)
[2025-01-22] MEDS: ASPIRIN 81MG CHEWABLE TABLET 324 MG PO (16:10)
[2025-01-22 16:27] LABS: HCG Qualitative, Serum Negative (Negative)
[2025-01-22 16:34] VITALS: BP 119/87; PULSE 66; RESP 18; TEMP 36.8; O2SAT 99
== END 2025-01-22 16:46 | disposition home or self-care (01) ==
PROVIDERS: Emergency Medicine; Emergency Provider Emergency Medicine; PCP Nurse Practitioner
DX: R07.9 Chest pain, unspecified (principal); R11.0 Nausea; R42 Dizziness and giddiness; I10 Essential (primary) hypertension
CPT/HCPCS: 71046; 80053; 80061; 84484; 84703; 85025; 93005; 99284

== ENCOUNTER 2025-02-25 06:40 | Outpatient (CLI) | payer OTHER, SELFPAY ==
--- NOTE | 2025-02-25 | CA_ITS ---
APPROVED REPORT Exam: Pharmacologic Technologist: Helen Calzada Ht: 4 ft 11 in Wt: 196 lbs BSA: 1.83 m2 HR: 67 bpm BP: 142/84 mmHg Stress Test Details Test: Lexiscan HR Resting HR: 67 bpm Max Heart Rate (APMHR): 171.550438 bpm Max HR Achieved: 101 bpm Target HR (85% APMHR): 145.620854 bpm % of APMHR: 59.06 Recovery HR: 88 bpm BP Resting BP: 142.0/84.0 mmHg Max BP: 142.0/84.0 mmHg Recovery BP: 124.0/72.0 mmHg ECG Stress ECG Conclusion Symptoms: Shortness of breath and nausea with Lexiscan. Chest pain noted as well. Arrhythmias/Ectopy: PVC noted in recovery ST-T Changes: Unremarkable with Lexiscan Electronically signed by : Allison Prado MD 02/25/2025 12:47:10
--- NOTE | 2025-02-25 06:30 | NM_ITS ---
APPROVED REPORT Exam: Nuclear Stress Test Indication: cad, htn, diabetes, hyperlipidemia, fm hx, c.p., sob Patient Location: Outpatient Stress Tech: Helen Calzada [place] Tech:Whitney Walker REED RT (R)(N)(M) Ht: 4 ft 11 in Wt: 195 lbs Bra Size: d HR: 67 bpm BP: 142/84 mmHg BSA: 1.83 m2 TID: 1.14 BMI: 39.3 History: cad, htn, diabetes, hyperlipidemia, fm hx, c.p., sob Procedure: Patient received 0.4 mg of intravenous Lexiscan, resting heart rate 67 bpm, resting blood pressure 142/84 mmHg, with Lexiscan maximum heart rate achieved was 101 bpm which is % of the maximum predicted heart rate and blood pressure was 102/71 mmHg. With Lexiscan, patient denied any complaint of chest pain. Cardiac Stress and Resting SPECT Images: Cardiac Stress and Resting SPECT images were obtained using technetium 99m Myoview 9.54 mCi stress and 32.0 mCi at rest. Resting and stress imaging in supine and prone positions demonstrate no evidence of fixed or reversible perfusion defects. Gated imaging demonstrates normal global and regional LV systolic function. LVEF is calculated at > 75%. Conclusion: No evidence of fixed or reversible perfusion defects. Gated imaging demonstrates normal global and regional LV systolic function. LVEF is calculated at > 75%. Electronically signed by : Allison Prado MD 02/25/2025 12:42:29
[2025-02-25] MEDS: SODIUM CHLORIDE 0.9% 10ML SYR (RAD ONLY) 10 ML IV ×2 (06:55→08:15)
[2025-02-25] MEDS: REGADENOSON 0.4MG/5ML SYRINGE 0.4 MG IV (08:15)
[2025-02-25] MEDS: ISOTOPE MYOVIEW (PER STUDY) 1 DOSE IV (10:29)
== END 2025-02-25 23:59 | disposition home or self-care (01) ==
LOC: RAD 06:41
PROVIDERS: PCP Nurse Practitioner; Visit Provider Internal Medicine
DX: R07.9 Chest pain, unspecified (principal)
CPT/HCPCS: 78452; 93017; 93018; A9502; J2785

== ENCOUNTER 2025-03-11 11:18 | Day surgery (SDC) | payer OTHER, SELFPAY ==
[2025-03-10 11:30] VITALS: BMI 39.4
[2025-03-11 12:14] VITALS: BP 108/70; PULSE 74; RESP 18; TEMP 36.4; O2SAT 97
[2025-03-11 12:23] LABS: Urine Pregnancy, HCG Qual. Negative (Negative)
[2025-03-11] MEDS: LACTATED RINGERS 1000ML 1,000 ML 50 ML IV (12:51)
--- NOTE | 2025-03-11 13:04 | P.PNANES_ITS ---
[facility] Disclaimer: The information contained in this section may have been updated after the patient was seen, as this information can be updated by other users. Medical History Functional dyspepsia History of cancer Brain fog History of nephrolithiasis Family history of brain aneurysm Carpal tunnel syndrome of left wrist GERD (gastroesophageal reflux disease) Hypoglycemia Cervical cancer Ovarian cancer Hypertension Surgical History Status post myringotomy with tube placement of both ears History of cardiac cath H/O LEEP History of Family History (Updated 03/11/25 @ 12:15 by Candy Gallardo RN) Other Family history of diabetes mellitus type II Family history of hyperlipidemia Family history of hypertension Hx of CABG Social History (Updated 03/11/25 @ 12:17 by Candy Gallarod RN) Smoking Status: Former smoker smoking status stop date: Oct 2023 alcohol intake: never substance use type: denies use current occupational status: unemployed Travel in the last 8 weeks: None household members: significant other housing: house marital status: single caffeine: Yes Have you lived/traveled outside US in past 30 days?: No Contact w/someone who lives/traveled outside US past 30 days?: No Exposure to someone with infectious disease in past 14 days?: No Do you have a fever (greater than 100.4 F or 38 C)?: No Have you tested positive for COVID-19: No Exposed to someone with COVID-19 in past 14 days?: No Do you have a sore throat?: No Do you have a cough?: No Do you have any weakness?: No Do you have any diarrhea?: No Are you experiencing any unusual bleeding?: No Do you have any muscle aches/pain?: No Do you have any abdominal pain?: No Are you experiencing loss of taste or smell?: No [facility] Anesthesia Checklist Patient Identification Patient Identification: Arm Band and Family Structural Data Admitted From: Home Planned Operative Procedure/s: Colonoscopy Consent for Planned Operative Procedure(s) Verified: Yes Verified Documents: Surgical Consent and History and Physical NPO Status Verified Time NPO: 00:00 Additional verifications Patient : No Anesthesia Reactions: No Hx Blood Transfusions: No Blood Transfusion Reaction: No Cephalosporin Allergy: No Previous Colonoscopy: No Airway Assessment Mallampati Score:: Class II C-Spine Mobility Assessed: Yes TMJ Mobility Assessed: Yes Dentition: Good Dentition Neurological Assessment Level of Consciousness: Awake, Alert, Appropriate and Follows Commands Hx Seizures: No Numbness or tingling in extremities: No Anesthesia Plan Anesthesia Risk discussed: Yes ASA Class: III Anesthesia Type: MAC Preoperative Comments Pre-Operative Comments: Cardiac stent X1. CVA with no residual. NIDDM. Inflammation left kidney. History of kidney stones.
--- NOTE | 2025-03-11 13:38 | EXP.HP ---
History of Present Illness *Admission Date: 03/11/25 *Reason for visit:: Chronic constipation/smaller caliber bowel movements, bloating and abdomina *History of present illness: Mrs. Jeronimo is a 49-year-old female who is here for diagnostic colonoscopy secondary to constipation/small caliber stools, change in bowel habits, bloating and abdominal distention. She has never had a colonoscopy. The examination is deemed medically necessary for diagnostic colonoscopy. The patient has been seen, interviewed and examined prior to the procedure by both myself and the anesthesia provider. [facility] Disclaimer: The information contained in this section may have been updated after the patient was seen, as this information can be updated by other users. Medical History (Updated 03/11/25 @ 13:40 by Damon Barajas II, MD) Functional dyspepsia History of cancer Brain fog History of nephrolithiasis Family history of brain aneurysm Carpal tunnel syndrome of left wrist GERD (gastroesophageal reflux disease) Hypoglycemia Cervical cancer Ovarian cancer Hypertension Surgical History Status post myringotomy with tube placement of both ears History of cardiac cath H/O LEEP History of Family History (Updated 03/11/25 @ 12:15 by Candy Gallardo RN) Other Family history of diabetes mellitus type II Family history of hyperlipidemia Family history of hypertension Hx of CABG Social History (Updated 03/11/25 @ 12:17 by Candy Gallardo RN) Smoking Status: Former smoker smoking status stop date: Oct 2023 alcohol intake: never substance use type: denies use current occupational status: unemployed Travel in the last 8 weeks: None household members: significant other housing: house marital status: single caffeine: Yes Have you lived/traveled outside US in past 30 days?: No Contact w/someone who lives/traveled outside US past 30 days?: No Exposure to someone with infectious disease in past 14 days?: No Do you have a fever (greater than 100.4 F or 38 C)?: No Have you tested positive for COVID-19: No Exposed to someone with COVID-19 in past 14 days?: No Do you have a sore throat?: No Do you have a cough?: No Do you have any weakness?: No Do you have any diarrhea?: No Are you experiencing any unusual bleeding?: No Do you have any muscle aches/pain?: No Do you have any abdominal pain?: No Are you experiencing loss of taste or smell?: No Other Medical History Have you received the Flu Vaccine for this season: No Have you received the Pneumonia Vaccine: No Review of Systems Review of Systems Review of systems (narrative): Negative *Cardiovascular Comments: Negative *Gastrointestinal Comments: Negative *Genitourinary Comments: Negative *Musculoskeletal Comments: Negative *Neurologic Comments: Negative Meds Home Medications and Allergies Home Medications ?Medication ?Instructions ?Recorded ?Confirmed ?Type glipizide 5 mg tablet, extended 5 mg PO DAILY 07/09/24 03/11/25 History release 24 hr hydralazine 25 mg tablet See Rx Instructions .Route 10/15/24 03/10/25 Rx .COMPLEX #270 tabs aspirin 81 mg tablet,delayed 81 mg PO DAILY 90 days #90 tabs 01/13/25 03/10/25 Rx release esomeprazole magnesium 40 mg 40 mg PO DAILY #90 caps 01/13/25 03/10/25 Rx capsule,delayed release (Nexium) [id number] 2 cap PO .COMPLEX #720 caps 01/13/25 03/10/25 Rx 36,000-114,000-180,000 unit capsule,delay rel (Creon) sucralfate 1 gram tablet (Carafate) 1 g PO Q6H PRN dyspepsia #90 tabs 01/13/25 03/11/25 Rx isosorbide mononitrate 30 mg 30 mg PO DAILY #90 tabs 01/19/25 03/10/25 Rx tablet,extended release 24 hr atorvastatin 80 mg tablet 80 mg PO DAILY #90 tabs 01/21/25 03/10/25 Rx clopidogrel 75 mg tablet 75 mg PO DAILY #90 tabs 01/21/25 03/11/25 Rx hydrochlorothiazide 25 mg tablet 25 mg PO BID 30 days #60 tabs 02/19/25 03/10/25 Rx amlodipine 2.5 mg tablet 2.5 mg PO DAILY #90 tabs 02/23/25 03/10/25 Rx blood sugar diagnostic (FreeStyle #10 ea 02/23/25 03/10/25 History Lite Strips) nitroglycerin 0.4 mg sublingual 0.4 mg sublingual Q5-15M PRN chest 02/23/25 03/10/25 Rx tablet pain #30 tabs ranolazine 500 mg tablet,extended 500 mg PO BID #60 tabs 02/23/25 03/10/25 Rx release,12 hr spironolactone 25 mg tablet 25 mg PO BID #60 tabs 02/23/25 03/10/25 Rx metoprolol succinate 100 mg 100 mg PO DAILY #90 tabs 03/09/25 03/10/25 Rx tablet,extended release 24 hr sodium,potassium,mag sulfates 17.5 See Rx Instructions PO .COMPLEX 03/09/25 03/10/25 Rx gram-3.13 gram-1.6 gram oral soln #354 mL (Suprep Bowel Prep Kit) hydroxyzine pamoate 50 mg capsule 50 mg PO TIDP PRN Anxiety 03/10/25 03/10/25 History New Prescriptions to Start Prescriptions: Allergies Allergy/AdvReac Type Severity Reaction Status Date / Time lisinopril Allergy Hives Verified 03/11/25 12:09 oxycodone (From Percocet) Allergy Hives Verified 03/11/25 12:09 Sulfa (Sulfonamide Allergy Hives Verified 03/11/25 12:09 Antibiotics) Exam Data for Last 24 hours Vital signs and Labs for Last 24 Hours: Temp Pulse Resp BP Pulse Ox O2 Del Method 97.6 F 74 18 108/70 L 97 Room Air 03/11/25 12:14 03/11/25 12:14 03/11/25 12:14 03/11/25 12:14 03/11/25 12:14 03/11/25 12:14 Laboratory Results - last 24 hr 03/11/25 11:48: Urine HCG, Qual Negative I & O for Last 24 hours: Intake & Output 03/08/25 03/09/25 03/10/25 03/11/25 23:59 23:59 23:59 23:59 Weight 195 lb *Routine HEENT Exam Head: Present normocephalic Eye: Present EOMI and PERRL ENT: Present mucous membranes moist *Routine Neck Exam Neck: Present supple *Routine Respiratory Exam Respiratory: Present CTA bilaterally *Routine Cardiovascular Exam Cardiovascular: Present RRR *Routine Abdominal Exam Abdominal: Present soft and normoactive bowel sounds; Absent tenderness *Routine Rectal Exam Rectal:: deferred *Routine Genitalia Exam Genitalia:: deferred *Routine Extremities Exam Extremities: Absent cyanosis, clubbing or edema *Routine Skin Exam Skin: Present warm; Absent rash *Routine Neurological Exam Neurological: Present alert and oriented X3 Assessment and Plan *Assessment and plan (1) Change in bowel habits: Status: Acute Category: Medical Code(s): R19.4 - Change in bowel habit (2) Constipation: Status: Acute Category: Medical Code(s): K59.00 - Constipation, unspecified (3) Bloating: Status: Acute Category: Medical Code(s): R14.0 - Abdominal distension (gaseous) Plan A/P: 1. Change in bowel habits with constipation, bloating is the preprocedural diagnosis. The patient will be anesthetized/sedated using MAC sedation. The patient has been seen and examined. Cardiac and lung assessment prior to the examination is stable. Proceed with planned diagnostic colonoscopy.
--- NOTE | 2025-03-11 13:59 | P.PCN_ITS ---
[facility] Procedure Note Date: 03/11/25 Procedure Note:: Colonoscopy Procedure Report: Colonoscopy Endoscopist: Damon Barajas II, MD Referring physician: ELIZABETH Tang Date of Procedure: March 11, 2025 Equipment: Olympus 190 variable stiffness pediatric colonoscope Sedation: MAC sedation Indication: Mrs. Jeronimo is a 49-year-old female with noncardiac chest pain/esophageal chest pain and heartburn. She also has had some change in bowel habits with longstanding constipation but more smaller caliber stools and incomplete defecation. She has been on Plavix and had a week of dark tarry stools/melena and was taken off Plavix for about 3 days. The patient does report marked bloating and some lower abdominal discomfort. She will also get some dyspepsia with epigastric discomfort. She does take Gas-X. She reports no bright red rectal bleeding or weight loss. MiraLAX and Metamucil made her constipation worse. She does take a magnesium supplement. She does have EPI (exocrine pancreatic insufficiency) with fecal elastase less than 50 mcg/g and she is on Creon 2 capsules with meals and 1 with snacks. This is her first colonoscopy. She reports no family history of colon cancer. Procedure: Prior to the procedure, a history and physical exam was performed, and patient's medications and allergies were reviewed. The risks, benefits and alternatives of the sedation and procedure were discussed with the patient. All questions were answered and informed consent was obtained. The patient was brought to the procedure room. Patient identification and proposed procedure were verified by the physician and the nurse. The patient was placed in a left lateral decubitus position and the scope was passed under direct vision. Throughout the procedure, the patient's blood pressure, pulse, and oxygen saturations were monitored continuously. The colonoscopy was accomplished without difficulty. The patient tolerated the procedure well. Findings: On digital rectal examination there was normal rectal tone. There were no external hemorrhoids. The colonoscope was introduced through the anal canal to the rectum and advanced to the cecum. The ileocecal valve and appendiceal orifice were identified. The scope was advanced a short distance into the ileum which appeared grossly normal. The scope was then withdrawn into the colon. The cecum, ascending and transverse colon and mucosa were grossly normal. There were scattered diverticuli throughout the descending and sigmoid colon (LEFT colon). The rectum itself was normal. Upon retroflexion within the rectum there were grade 1-2 internal hemorrhoids. The preparation was excellent throughout with [place] Preparation Score of 9. The cecal time was 12 minutes. Impression: 1. Left-sided diverticulosis 2. Grade 1-2 internal hemorrhoids Plan: The patient does have outlet dysfunction constipation. She does have incomplete defecation. I do feel that she would benefit from pelvic floor physical therapy. I would also consider Motegrity. Aside from the colonic prokinetic effect of Motegrity, Motegrity (prucalopride) is a prokinetic/promotility agent that does improve colonic emptying. This medication also improves motility in the upper digestive tract and has been shown to reduce esophageal acid/peptic fluid exposure and accelerates gastric (stomach) emptying. Bloating as a symptom in clinical GI practice is 1 of the most common reasons for patient visits. The guidelines are to determine whether there are underlyin g factors (i.e. enzyme deficiencies), incomplete colonic emptying, stress, dietary factors (carbohydrates/FODMAP's). We certainly have moved in this direction. Probiotic should not be used as a treatment for bloating and distention. Best practices include diaphragmatic breathing and central neuromodulators and low FODMAP diet. Certainly pelvic floor training can help. One underutilized therapy for upright GERD (functional GERD) is diaphragmatic breathing. It may be worthwhile having her reading about this and implementing diaphragmatic breathing on a regular basis. Recent studies have shown that breathing exercises with diaphragmatic breathing can enhance the crural diaphragm strength at the lower esophageal sphincter and strengthen the diaphragm barrier mechanism, reduce gastroesophageal reflux and subsequent damage. Especially in upright GERD, diaphragmatic breathing reduces the number of postmeal reflux events by increasing the difference between LES (lower esophageal sphincter) and gastric pressure. In other words, it changes pressure gradients that would otherwise favor gastroesophageal reflux. Pressure gradients are often related to gas pressure and any person with belching related reflux with associated bloating are very apt to benefit from diaphragmatic breathing.
[2025-03-11 14:02] VITALS: O2SAT 97
[2025-03-11 14:17] VITALS: BP 80/49; PULSE 81; RESP 16; TEMP 36.6; O2SAT 95
[2025-03-11 14:27] VITALS: BP 90/56; PULSE 74; RESP 16; O2SAT 96
[2025-03-11 14:37] VITALS: BP 114/79; PULSE 74; RESP 18; O2SAT 98
[2025-03-11 14:47] VITALS: BP 109/65; PULSE 72; RESP 16; O2SAT 98
[2025-03-13 14:52] LABS: POC Glucose,Bedside 135 (70-110)
== END 2025-03-11 14:52 | disposition home or self-care (01) ==
PROVIDERS: PCP Nurse Practitioner; Visit Provider Internal Medicine Gastroenterology
PROC: 0DJD8ZZ Inspection of Lower Intestinal Tract, Via Natural or Artificial Opening Endoscopic (ICD-10-PCS; CPT 45378; principal; 2025-03-11 13:00)
DX: K57.30 Diverticulosis of large intestine without perforation or abscess without bleeding (principal); K64.8 Other hemorrhoids; R19.4 Change in bowel habit; K59.00 Constipation, unspecified; R14.0 Abdominal distension (gaseous); K59.04 Chronic idiopathic constipation
CPT/HCPCS: 45378; 81025; 82962; J7120

== ENCOUNTER 2025-06-09 11:53 | Emergency (ER) | payer OTHER, SELFPAY ==
[2025-06-09] VITALS (14 sets, daily range): BP systolic 96–163; BP diastolic 68–110; PULSE 79–126; RESP 10–22; TEMP 36.4–37; O2SAT 95–99; BMI 38.3
--- NOTE | 2025-06-09 | ECG_ITS ---
APPROVED REPORT Exam: Resting ECG HR:122 bpm ECG Measurements Heart Rate 122 AXES AZ 154 P 61 QRSd 84 QRS 14 QT 338 T 52 QTc 410 Conclusion Sinus tachycardia without acute ST or T wave changes concerning for ischemia Electronically signed by : Marisol Chadwick, 06/10/2025 07:09:25
--- OUTSIDE RECORDS SUMMARY | 2025-06-09 12:00 | XMS_ITS | Encounter Summary ---
Author Organization [facility] ([place], [place], [place], [place]) Address [address] [place] [address] Care Team Providers Care Principal Secretary Name Role Phone Unavailable Primary Care Provider Unavailabl e Encounter Details Date Type Department Care Team (Late st Contact Info) Description 08/30/2021 Transcribed Document [facility] Family [facility] [place] [address] ProviderElena MD [address] [place] [id number] Social History Tobacco Use Types Packs/Day Years Used Date Smoking Tobacco: Never Assessed Comments Unknown Sex and Gender Information Value Date Recorded Sex Assigned at Not on file Legal Sex Female 5:06 PM CDT Gender Identity Not on file Sexual Orientation Not on file documented as of this encounter Miscellaneous Notes * Cerner Conversion Note - Historical ProviderMD - 08/30/2021 1:13 PM CDT Pre Procedure Adult Entered On: 08/30/2021 13:16 EDT Performed On: 08/30/2021 13:13 EDT by ISIS RYDER RN Height and Weight, Clinical Dosing Height Source : Measured Height Entry Format : [place] Height, Feet : 4 ft(Converted to: 122 cm, 48 Inch) Height, Inches : 11 Inch(Converted to: 0 ft 11 Inch, 27.94 cm) Clinical Height : 149.86 cm Weight Source : Standing scale Weight Entry Format : [place] Clinical Dosing Weight : 70.45 kg Weight, Pounds : 155 lb Body Surface Area (BSA) : 1.66 m2 Body Mass Index : 31.4 kg/m2 (HI) [place] Body Weight : 43 kg ISIS RYDER RN - 08/30/2021 13:13 EDT Health Histories Smoking Status : 10 or more cigarettes (1/2 pack or more)/day in last 30 days Smokeless Tobacco Status : Never Desires Tobacco Cessation Medication : No Reason for No Tobacco Cessation Medication : ED/procedural patient only ISIS RYDER RN - 08/30/2021 13:13 EDT Social History (As Of: 08/30/2021 13:16:25 EDT) Tobacco: Smoking Status Current every day smoker. Five or more cigarettes per day Smoking Frequency Within Last 30 Days. Use in Last 12 Months: Cigarettes. Packs/Tins Daily: 0.5. Second Hand Smoke Exposure: Yes. (Last Updated: 06/08/2017 00:36:58 EDT by Marce Calzada RN) Alcohol: Use in Last 12 Months: No. (Last Updated: 08/18/2014 19:11:29 EDT by JAYANT BUI RN) Substance Abuse: Drug Use Hx: No. Use in Last 12 Months: No. (Last Updated: 12/19/2015 01:02:37 EST by NICOLE LAMA, BRAD) Nutrition/Health: Regular (Last Updated: 01/01/2019 12:19:40 EST by JANI CATALAN, BRAD) Home/Environment: Lives with Children. (Last Updated: 10/15/2018 02:51:16 EST by Ben Hernandez, Brad) Employment/School: Employed, Work/School description: [employer]. (Last Updated: 10/15/2018 02:51:38 EST by Ben Hernandez, Brad) Infectious Disease History Does patient have symptoms of COVID-19? : No Has the Patient Been Tested for COVID-19 in the last 14 days? : Yes, Patient stated results pending Does the Patient state known exposure to a COVID-19 positive case in the last 14 days? : No Patient Vaccinated for COVID-19 : Not vaccinated Does Patient want a COVID-19 Vaccine? : No ISIS RYDER RN - 08/30/2021 13:13 EDT Infectious Disease Risk Screening Grid Cough < 2 wks of unknown origin : NO Cough > 2 weeks : NO Blood in Sputum : NO Fever or self-reported Fever : NO Rash of unknown origin : NO Headache : NO Stiff neck : NO Night Sweats : NO Unexplained Weight Loss : NO Diarrhea (3 episode per day) : NO ISIS RYDER RN - 08/30/2021 13:13 EDT Physical contact outside [place] in the last 30 days : No Hospitalized in Foreign Country : No Infectious Disease History : Chicken pox/Shingles, Mumps, Other: [place] spotted fever INF Disease TB Screening Calc : 0 INF Disease Recent Travel Calc : 0 ISIS RYDER RN - 08/30/2021 13:13 EDT COVID19 PreProcedure Screening Is this an Emergent or Add on Procedure? : Yes ISIS RYDER RN - 08/30/2021 13:13 EDT Anesthesia/Transfusion History Family History of Anesthesia Reaction : No prior transfusion(s) Transfusion History : Prior anesthesia without reaction Family History of Anesthesia Reaction : None ISIS RYDER RN - 08/30/2021 13:13 EDT Functional Assessment Living Situation : Home Current Home Treatments : None ISIS RYDER RN - 08/30/2021 13:13 EDT [place] Suicide Severity Rating Scale (C-SSRS) CSSRS Past Month Wish to be : No CSSRS Past Month Suicidal Thoughts : No CSSRS Lifetime Suicide Behavior : No Suicide Severity Rating Score : 0 Suicide Severity Rating : No Additional Care Required at this time ISIS RYDER RN - 08/30/2021 13:13 EDT Psychosocial History Do You Have a History of the Following? : Anxiety Currently in Unsafe Situation : No ISIS RYDER RN - 08/30/2021 13:13 EDT Advance Directive Patient has Advance Directive *Q : No, patient refuses Advance Directive information ISIS RYDER RN - 08/30/2021 13:13 EDT General Info Arrived From : Home Support Person/Pt Rep Name : Seth Support Person/Pt Rep Contact Information : [phone] Want Family/Rep/Phys Notified of Admit : No Emergency Contact #1 : Seth Emergency Contact #1 Emergency Contact #1 Relationship : so Emergency Contact #2 : na Emergency Contact #2 Phone Number : na Emergency Contact #2 Relationship : na Chief Complaint : xiomy Information Obtained From : Patient Primary Language : Northern Irish Preferred Communication Mode : Verbal Communication Barrier : None Land Title Examiner Needed : No ISIS RYDER RN - 08/30/2021 13:13 EDT Vital Measurements Systolic Blood Pressure : 156 mmHg (HI) Diastolic Blood Pressure : 90 mmHg ISIS RYDER RN - 08/30/2021 13:20 EDT Temperature Source : Temporal artery scanning Temperature Mode : Fahrenheit Temperature, Fahrenheit : 97.5 Deg F Clinical Temperature, C : 36.4 Deg C Peripheral Pulse Rate : 79 bpm Respiratory Rate : 16 Breaths/Min Blood Pressure Location : Arm, right upper Blood Pressure Source : Non-Invasive BP Device Oxygen Saturation : 100 % Oxygen Therapy Mode : Room air ISIS RYDER RN - 08/30/2021 13:13 EDT Sleep Apnea Risk Assmt Hx of Obstructive Sleep Apnea Diagnosis : No Snore Loudly : No Tired, Fatigued, or Sleepy During Day : No Observed Stopping Breathing During Sleep : No Have/Are Being Treated for Hypertension : Yes BMI Greater Than 35 kg/m2 : No Age over 50 Years Old : No Neck Circumference Greater Than 40 cm : No Gender Male : No STOP-BANG Sleep Apnea Risk Level Score : 1 ISSI RYDER RN - 08/30/2021 13:13 EDT Wilmer Scale Wilmer Sensory Perception : No impairment Wilmer Moisture : Moist Wilmer Activity : Walks frequently Wilmer Mobility : No limitation Wilmer Nutrition : Excellent Wilmer Friction and Shear : No apparent problem Wilmer Score : 21 ISIS RYDER RN - 08/30/2021 13:13 EDT Pain Assessment Pain Assessment : Initial assessment Pain Scale Used : 0-10 Scale ISIS RYDER RN - 08/30/2021 13:13 EDT Fall Risk Scales ABCs Fall Injury Risk Identification : None JOHNSON Hx Falls Immediate/Within 3 Months : No Johnson Secondary Diagnosis : Yes JOHNSON Use of Ambulatory Aid : None JOHNSON IV Therapy or IV Access : Yes Johnson Gait/Transferring : Normal, bedrest, immobile Johnson Mental Status : Oriented to own ability Johnson Fall Risk Score : 35 JOHNSON Fall Scale Risk Level : 25-45 Medium Risk [place] Fall Interventions : Adequate lighting, Call device within reach, Fall prevention handout/education per facility policy, Frequent orientation to call device ISIS RYDER RN - 08/30/2021 13:13 EDT Valuables and Belongings Valuables and Belongings : Clothing Clothing : Common streetwear Clothing Disposition : With patient, Declines to send to security/safe ISIS RYDER RN - 08/30/2021 13:13 EDT Pain Scale Intensity : 0 ISIS RYDER RN - 08/30/2021 13:13 EDT Image 4 - Images currently included in the form version of this document have not been included in the text rendition version of the form. documented in this encounter Plan of Treatment Not on file documented as of this encounter Visit Diagnoses Not on filedocumented in this encounter
--- OUTSIDE RECORDS SUMMARY | 2025-06-09 12:00 | XMS_ITS | Clinical Summary ---
Author Organization [employer] [facility], [place], operated by [facility] Address [address] [place] [address] Phone Care Team Providers Care Ux Manager Name Role Phone Kallie Quinn APRN Primary Care Physician [phone] Conditions or Problems Problem Name Problem Code Onset Date Status Entry Date Provider Comment Standard Description Annotate Counseling for nutrition Z71.3 (ICD-10-CM ) 06/08 Inactive 06/08 Adiel Ledbetter APRN Dietary counseling and surveillance Body mass index (BMI) 30.0-30.9; adult Z68.30 (ICD-10-CM ) 06/08 Active 06/08 Adiel Ledbetter APRN Body mass index [BMI] 30.0-30.9, adult Body mass index (BMI) 30.0-30.9; adult Z68.30 (ICD-10-CM ) 01/28 Correction 01/28 Adiel Ledbetter APRN Body mass index [BMI] 30.0-30.9, adult Body mass index (BMI) 30.0-30.9; adult Z68.30 (ICD-10-CM ) 01/28 Removed 01/28 Nidia Theodore MD Body mass index [BMI] 30.0-30.9, adult Body mass index (BMI) 29.0-29.9; adult Z68.29 (ICD-10-CM ) 12/22 Correction 12/22 Nidia Theodore MD Body mass index [BMI] 29.0-29.9, adult Carpal tunnel syndrome, right 09906750 (SNOMED CT) 01/28 Active 01/28 Nidia Theodore MD Carpal tunnel syndrome Sore throat (acute) 277551287 (SNOMED CT) 01/28 Active 01/28 Nidia Theodore MD Pain in throat UTI, acute 969628619 (SNOMED CT) 01/28 Active 01/28 Nidia Theodore MD Acute urinary tract infection Body mass index (BMI) 29.0-29.9; adult Z68.29 (ICD-10-CM ) 12/22 Removed 12/22 Kallie Quinn APRN Body mass index [BMI] 29.0-29.9, adult Irregular menses 05642596 (SNOMED CT) 12/22 Active 12/22 Kallie [place] BRENT Irregular periods Counseling for nutrition Z71.3 (ICD-10-CM ) 12/22 Inactive 12/22 Kallie Quinn BRENT Dietary counseling and surveillance Body mass index (BMI) 31.0-31.9; adult Z68.31 (ICD-10-CM ) 01/15 Correction 01/20 Kallie Quinn APRN Body mass index [BMI] 31.0-31.9, adult Vaginal discharge 874525752 (SNOMED CT) 12/22 Active 12/22 [facility] RLQ pain 977142559 (SNOMED CT) 12/22 Active 12/22 Kallie Quinn BRENT Right lower quadrant pain Body mass index (BMI) 31.0-31.9; adult Z68.31 (ICD-10-CM ) 01/15 Removed 01/20 Jerrica Enamorado MD Body mass index [BMI] 31.0-31.9, adult Body mass index (BMI) 31.0-31.9; adult Z68.31 (ICD-10-CM ) 01/09 Correction 01/09 Jerrica Enamorado MD Body mass index [BMI] 31.0-31.9, adult Blurred vision 478524187 (SNOMED CT) 01/15 Active 01/15 Jerrica Enamorado MD Blurring of visual image Body mass index (BMI) 31.0-31.9; adult Z68.31 (ICD-10-CM ) 01/09 Removed 01/09 Jerrica Enamorado MD Body mass index [BMI] 31.0-31.9, adult Body mass index (BMI) 31.0-31.9; adult Z68.31 (ICD-10-CM ) 01/02 Correction 01/07 Jerrica Enamorado MD Body mass index [BMI] 31.0-31.9, adult Body mass index (BMI) 31.0-31.9; adult Z68.31 (ICD-10-CM ) 01/02 Removed 01/07 Jerrica Enamorado MD Body mass index [BMI] 31.0-31.9, adult Body mass index (BMI) 30.0-30.9; adult Z68.30 (ICD-10-CM ) 12/09 Correction 12/09 Jerrica Enamorado MD Body mass index [BMI] 30.0-30.9, adult Near syncope 194148823 (SNOMED CT) 01/02 Inactive 01/07 Jerrica Enamorado MD Near syncope Hypoglycemi a NOS 113809901 (SNOMED CT) 03/15 Resolved 03/15 Jerrica Enamorado MD Hypoglycemia Low back pain, acute 914849493 (SNOMED CT) 12/27 Resolved 12/27 Jerrica Enamorado MD Acute low back pain Influenza 9889363 (SNOMED CT) 12/01 Resolved 12/01 Jerrica Enamorado MD Influenza Cough 20570241 (SNOMED CT) 12/01 Resolved 12/01 Jerrica Enamorado MD Cough Diverticulo sis 814564306 (SNOMED CT) 12/25 Active 12/25 Kallie Quinn APRN Diverticular disease Body mass index (BMI) 30.0-30.9; adult Z68.30 (ICD-10-CM ) 12/09 Removed 12/09 Kallie Quinn APRN Body mass index [BMI] 30.0-30.9, adult Body mass index (BMI) 29.0-29.9; adult Z68.29 (ICD-10-CM ) 12/01 Correction 12/01 [facility] [employer] Body mass index [BMI] 29.0-29.9, adult Hematuria 75244813 (SNOMED CT) 12/09 Active 12/09 [facility] [employer] Blood in urine Body mass index (BMI) 29.0-29.9; adult Z68.29 (ICD-10-CM ) 12/01 Removed 12/01 [facility] [employer] Body mass index [BMI] 29.0-29.9, adult Body mass index (BMI) 28.0-28.9; adult Z68.28 (ICD-10-CM ) 03/05 Correction 03/07 [facility] Body [facility] index [BMI] 28.0-28.9, adult GERD 829476936 (SNOMED CT) 12/01 Active 12/01 [facility] [employer] Gastroesophage al reflux disease Cough 21065616 (SNOMED CT) 12/01 Removed 12/01 [facility] [employer] Cough Influenza 6881026 (SNOMED CT) 12/01 Removed 12/01 [facility] [employer] Influenza Body mass index (BMI) 28.0-28.9; adult Z68.28 (ICD-10-CM ) 03/05 Removed 03/07 Nia Curtsinger [employer] Body mass index [BMI] 28.0-28.9, adult Bunion, right foot M21.611 (ICD-10-CM ) 03/05 Active 03/05 Nia Curtsinger [employer] Bunion of right foot Flu vaccine 18193050 (SNOMED CT) 12/27 Inactive 12/28 Nia Curtsinger [employer] Administration of influenza vaccine Low back pain, acute 234323379 (SNOMED CT) 12/27 Removed 12/27 Nia Curtsinger [employer] Acute low back pain Urinary frequency 952307596 (SNOMED CT) 12/27 Inactive 12/27 Nia Curtsinger [employer] Increased frequency of urination SCREENING FOR THYROID DISORDER 531309689 (SNOMED CT) 12/27 Inactive 12/27 Nia Curtsinger [employer] Thyroid disorder screening Screening for lipid disorder 073125071 (SNOMED CT) 12/27 Inactive 12/27 Nia Curtsinger [employer] Procedure carried out on subject Urinary frequency 767288409 (SNOMED CT) 07/18 Inactive 07/18 Nia Curtsinger [employer] Increased frequency of urination Leg pain, left 226199328 (SNOMED CT) 07/04 Resolved 07/04 Nia Curtsinger [employer] Pain in left lower limb Edema of face-- ANGIOEDEMA D/T ILSA INHIBITOR 974683839 (SNOMED CT) 07/11 Resolved 07/11 Nia Curtsinger [employer] Edema of face Edema of face-- ANGIOEDEMA D/T ILSA INHIBITOR 447311220 (SNOMED CT) 07/11 Removed 07/11 Nia Curtsinger [employer] Edema of face Perforated tympanic membrane 03776296 (SNOMED CT) 05/16 Resolved 05/16 Nia Curtsinger [employer] Perforation of tympanic membrane Leg pain, left 635768829 (SNOMED CT) 07/04 Removed 07/04 Pinky Reyes MD Pain in left lower limb Perforated tympanic membrane 95249171 (SNOMED CT) 05/16 Removed 05/16 Nia Curtsinger [employer] Perforation of tympanic membrane Temporal arteritis, LEFT 473393409 (SNOMED CT) 05/09 Inactive 05/09 Nia Curtsinger [employer] Temporal arteritis Migraine headache 81501374 (SNOMED CT) 05/16 Active 05/16 Nia Curtsinger [employer] Migraine Sinusitis, acute maxillary 95503257 (SNOMED CT) 05/16 Inactive 05/16 Nia Curtsinger [employer] Acute maxillary sinusitis Temporal arteritis, LEFT 940924043 (SNOMED CT) 05/09 Removed 05/09 Nia Curtsinger [employer] Temporal arteritis Anemia, iron deficiency 73624447 (SNOMED CT) 03/17 Active 03/17 Debra Mildred [employer] Iron deficiency anemia Prediabetes 7435045 (SNOMED CT) 03/15 Active 03/15 Debra Traill [employer] Impaired glucose tolerance Hypoglycemi a NOS 209714479 (SNOMED CT) 03/15 Removed 03/15 Debra Mildred [employer] Hypoglycemia Headache, cluster 989430734 (SNOMED CT) 12/16 Resolved 12/20 Debra Mildred [employer] Cluster headache Cluster headache 235929334 (SNOMED CT) 12/16 Resolved 12/16 Debra Mildred [employer] Cluster headache Dysfunction al uterine bleeding 61331817 (SNOMED CT) 12/30 Active 12/30 Debra Traill [employer] Dysfunctional uterine bleeding Abnormal pap smear 945779294 (SNOMED CT) 02/05 Resolved 02/05 Debra Traill [employer]ER[employer] Abnormal cytology findings Cardiac arrhythmia, intermitten t 76608723 (SNOMED CT) Resolved Debra Mildred [employer] Conduction disorder of the heart Leg pain, left 93004306 (SNOMED CT) Resolved Debra Traill [employer] Pain in lower limb Allergic rhinitis, seasonal 157008791 (SNOMED CT) Resolved Debra Mildred [employer] Seasonal allergic rhinitis Tension headache 967417066 (SNOMED CT) Active Debra Mildred [employer] Tension-type headache Allergic rhinitis, seasonal 366356039 (SNOMED CT) Removed Debra Traill [employer]ER[employer] Seasonal allergic rhinitis Leg pain, left 26653958 (SNOMED CT) Removed Debra Traill [employer]ERCIAL [employer] Pain in lower limb Vitamin D deficiency 89291170 (SNOMED CT) Active Debra Mildred [employer] Vitamin D deficiency Cardiac arrhythmia, intermitten t 83203597 (SNOMED CT) Removed Debra Traill [employer]ERCIAL [employer] Conduction disorder of the heart [place] spotted fever SUSPECTED 695883856 (SNOMED CT) 03/19 Inactive 03/19 Debra Mildred [employer] [place] spotted fever Dermatitis 197240079 (SNOMED CT) 03/19 Inactive 03/19 Debra Traill COMM[employer] Dermatitis Problem excluded fro m report: Dermatitis 432706332 (SNOMED CT) 03/19 Removed 03/19 Debra Traill [employer] Dermatitis Dysfunction al uterine bleeding 30887728 (SNOMED CT) 12/30 Resolved 12/30 Debra Traill [employer]ER[employer] Dysfunctional uterine bleeding Nipple discharge 75843783 (SNOMED CT) 12/30 Resolved 12/30 Debra Mildred [employer] Discharge from nipple Nipple discharge 86137130 (SNOMED CT) 12/30 Resolved 12/30 Debra Mildred COMMERCIAL [employer] Discharge from nipple Hyperlipide bunny 18025751 (SNOMED CT) Resolved 12/16 Debra Traill [employer]ERCIAL [employer] Hyperlipidemia Shoulder pain, left 719.41 (ICD-9-CM) 12/16 Resolved 12/16 Debra Traill [employer] Pain in joint involving shoulder region Leg pain, left 27213527 (SNOMED CT) 12/16 Resolved 12/16 Debra Mildred [employer] Pain in lower limb Sciatica, left 64734302 (SNOMED CT) 12/16 Resolved 12/16 Debra Mildred [employer]ER[employer] Sciatica Gastric ulcer, hx of 774071006 (SNOMED CT) 12/16 Resolved 12/16 Debra Traill [employer] H/O: gastric ulcer Calculus, kidney 71662331 (SNOMED CT) 12/16 Resolved 12/16 Debra Mildred [employer] Kidney stone Hematuria 70333504 (SNOMED CT) 12/16 Resolved 12/16 Debra Traill [employer]CIAL [employer] Blood in urine Carpal tunnel syndrome, bilateral 61510232 (SNOMED CT) 12/16 Resolved 12/20 Debra Mildred [employer] Carpal tunnel syndrome Annual documentation 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 exam 16827342 (SNOMED CT) 01/25 Resolved 01/25 Debra Traill [employer]ER[employer] Gynecologic examination HPV 641907012 (SNOMED CT) 02/05 Resolved 02/05 Debra Traill [employer]CIAL [employer] Human papilloma virus infection HPV 543038748 (SNOMED CT) 02/05 Removed 02/05 Marycruz [place] [employer] Human papilloma virus infection Abnormal pap smear 535625941 (SNOMED CT) 02/05 Removed 02/05 Marycruz [place] [employer] Abnormal cytology findings Annual documentation writer exam 51171316 (SNOMED CT) 01/25 Removed 01/25 Marycruz [place] [employer] Gynecologic examination Nipple discharge 91484753 (SNOMED CT) 12/30 Removed 12/30 Marycruz [place] [employer] Discharge from nipple Nipple discharge 76963851 (SNOMED CT) 12/30 Removed 12/30 Marycruz [place] [employer] Discharge from nipple Dysfunction al uterine bleeding 19395816 (SNOMED CT) 12/30 Removed 12/30 Marycruz [place] [employer] Dysfunctional uterine bleeding Dysmenorrhe a 791261035 (SNOMED CT) 12/30 Inactive 12/30 Marycruz [place] [employer] Dysmenorrhea Headache, cluster 005219895 (SNOMED CT) 12/16 Removed 12/20 Marycruz [place] [employer] Cluster headache Carpal tunnel syndrome, bilateral 14645290 (SNOMED CT) 12/16 Removed 12/20 Marycruz [place] [employer] Carpal tunnel syndrome Hematuria 44911124 (SNOMED CT) 12/16 Removed 12/16 Marycruz [place] [employer] Blood in urine Calculus, kidney 24379239 (SNOMED CT) 12/16 Removed 12/16 Marycruz [place] [employer] Kidney stone Gastric ulcer, hx of 672656873 (SNOMED CT) 12/16 Removed 12/16 Marycruz [place] [employer] H/O: gastric ulcer Sciatica, left 89597386 (SNOMED CT) 12/16 Removed 12/16 Marycruz Whit[place] [employer]ERCIAL [employer] Sciatica Leg pain, left 15229753 (SNOMED CT) 12/16 Removed 12/16 Marycruz Whitlock [employer] Pain in lower limb Cluster headache 942308698 (SNOMED CT) 12/16 Removed 12/16 Marycruz Whitlock APRN Cluster headache Shoulder pain, left 719.41 (ICD-9-CM) 12/16 Removed 12/16 Marycruz Whitlock APRN Pain in joint involving shoulder region Hypertensio n 12073065 (SNOMED CT) Active 12/16 Marycruz Whitlock [employer] Hypertensive disorder Hyperlipide bunny 21598927 (SNOMED CT) Removed 12/16 Marycruz Whitlock [employer] Hyperlipidemia Depression 08095118 (SNOMED CT) Active 12/16 Marycruz Whitlock [employer] Depressive disorder Anxiety Disorder 164261189 (SNOMED CT) Active 12/16 Marycruz [place] BRENT Anxiety disorder Medications Medication Instructions Start Date Stop Date Generic Name [facility] Provider HYDROCHLOROTHIAZIDE 25 MG TABS Take 1 tablet by mouth once a day 12/16 hydrochlorothiazid e 08415402147 Adiel Ledbetter APRN HYDROCHLOROTHIAZIDE 25 MG TABS TAKE 1 TABLET BY MOUTH EVERY DAY 12/09 hydrochlorothiazid e 59912151053 Pebbles Rashid [employer] METOPROLOL TARTRATE 50 MG TABS Take 1 tablet by mouth once a day 01/02 metoprolol tartrate 22527269711 Isabela Kilgore APRN AMLODIPINE BESYLATE 15 MG ORAL TABLET Take 1 tablet by mouth once a day 07/18 AMLODIPINE BESYLATE Adiel Ledbetter APRN HYDROCHLOROTHIAZIDE 25 MG TABS Take 1 tablet by mouth once a day 12/16 hydrochlorothiazid e 09364114569 Adiel Ledbetter APRN METOPROLOL TARTRATE 50 MG TABS Take 1 tablet by mouth once a day 01/02 metoprolol tartrate 17166749164 Adiel Ledbetter APRN BIOFREEZE GEL Use as directed 01/28 BIOFREEZE GEL Nury Kraus [facility] ACCU-CHEK TRINA PLUS STRP Use 03/15 blood sugar diagnostic 94192302004 Marycruz Skinner MA METOPROLOL TARTRATE 50 MG TABS Take 1 tablet by mouth once a day 01/02 metoprolol tartrate 26040191487 Nury Kraus CMA HYDROCHLOROTHIAZIDE 25 MG TABS Take 1 tablet by mouth once a day 12/16 hydrochlorothiazid e 94001087544 Marycruz Skinner MA PROMETHAZINE HCL 25 MG TABS Take 1 tablet by mouth every eight hours as needed 01/02 promethazine 28438409506 Marycruz Skinner MA IBUPROFEN 800 MG TABS Take 1 tablet three times a day as needed 12/01 ibuprofen 26937719294 Marycruz Skinner MA ACCU-CHEK TRINA PLUS w/Device KIT Use 03/15 blood-glucose meter 89307513812 Marycruz Skinner MA VENTOLIN HFA 108 (90 Base) MCG/ACT AERS Take 2 four times a day as needed 12/30 albuterol sulfate 43557844400 Marycruz Skinner MA ACCU-CHEK FASTCLIX LANCET KIT Use 03/15 LANCETS MISC. Marycruz Skinner MA AMLODIPINE BESYLATE 15 MG ORAL TABLET Take 1 tablet by mouth once a day 07/18 AMLODIPINE BESYLATE Mallory Johnson MA LEVAQUIN 500 MG ORAL TABLET TAKE 1 TABLET BY MOUTH 1 TIME A DAY FOR 10 DAYS 01/31 LEVOFLOXACIN 13151930780 Nidia Theodore MD AUGMENTIN 500-125 MG ORAL TABLET TAKE 1 TABLET BY MOUTH 3 TIMES A DAY FOR 10 DAYS 01/28 AMOXICILLIN-POT CLAVULANATE 24681880989 Nidia Theodore MD BIOFREEZE GEL USE DIRECTED 01/28 BIOFREEZE GEL Nidia Theodore MD AUGMENTIN 500-125 MG ORAL TABLET TAKE 1 TABLET BY MOUTH 3 TIMES A DAY FOR 10 DAYS 01/28 AMOXICILLIN-POT CLAVULANATE 42945472367 Nidia Theodore MD HYDROXYZINE HCL 10 MG TABS TAKE ONE TABLET 3 TIMES A DAY NEEDED FOR ANXIETY 12/30 HYDROXYZINE HCL 11569991060 Kallie Quinn APRN AMLODIPINE BESYLATE 15 MG ORAL TABLET (AMLODIPINE BESYLATE) TAKE 1 TABLET BY MOUTH 1 TIME A DAY 07/18 AMLODIPINE BESYLATE 15 MG ORAL TABLET (AMLODIPINE BESYLATE) Kallie Quinn APRN IMITREX 50 MG TABS TAKE 1 TABLET BY MOUTH AT ONSET OF HEADACHE, MAY REPEAT IN 2 HOURS 01/15 SUMATRIPTAN SUCCINATE 08643791115 Kallie Quinn APRN IMITREX 50 MG TABS TAKE 1 TABLET BY MOUTH AT ONSET OF HEADACHE, MAY REPEAT IN 2 HOURS 01/15 SUMATRIPTAN SUCCINATE 28135621286 Jerrica Enamorado MD PROMETHAZINE HCL 25 MG TABS TAKE 1 TABLET BY MOUTH EVERY 8 HOURS NEEDED FOR NAUSEA 01/02 PROMETHAZINE HCL 18413172900 Jerrica Enamorado MD NORCO 7.5-325 MG ORAL TABLET TAKE ONE TAB ORALLY EVERY 4 HOURS NEEDED FOR PAIN 03/05 HYDROCODONE-ACETAM INOPHEN 64069173586 Jerrica Enamorado MD PROMETHAZINE HCL 25 MG TABS TAKE 1 TABLET BY MOUTH EVERY 6 HOURS NEEDED FOR NAUSEA 05/12 PROMETHAZINE HCL 05840329727 Jerrica Enamorado MD METOPROLOL TARTRATE 50 MG TABS TAKE 1 TABLET BY MOUTH 1 TIME A DAY 01/02 METOPROLOL TARTRATE 13831149419 Jerrica Enamorado MD TRAMADOL HCL 50 MG TABS 1 PO TID PRN 12/09 TRAMADOL HCL 60237135324 Jerrica Enamorado MD RANITIDINE HCL 150 MG ORAL TABLET TAKE 1 TABLET BY MOUTH EVERY 12 HOURS NEEDED 12/01 RANITIDINE HCL 49659003361 Jerrica Enamorado MD BUTALBITAL-ACETAMINO PHEN 50-325 MG TABS 1 PO BID PRN 12/01 BUTALBITAL-ACETAMI NOPHEN 18488972832 Jerrica Enamorado MD LORATADINE 10 MG TABS TAKE 1 TABLET BY MOUTH 1 TIME A DAY 07/11 LORATADINE [id number] Jerrica Enamorado MD IMITREX 100 MG TABS TAKE 1/2-1 TABLET BY MOUTH AT ONSET OF HEADACHE, MAY REPEAT IN 2 HOURS 05/16 SUMATRIPTAN SUCCINATE 73432548359 Jerrica Enamorado MD TRAMADOL HCL 50 MG TABS 1 PO TID PRN 12/09 TRAMADOL HCL 93101933690 [facility] TRAMADOL HCL 50 MG TABS 1 PO BID PRN 12/09 TRAMADOL HCL 35932310601 [facility] 500 MG ORAL TABLET TAKE 1 TABLET BY MOUTH 1 TIME A DAY FOR 10 DAYS 12/01 LEVOFLOXACIN 80139979244 [facility] RANITIDINE HCL 150 MG ORAL TABLET TAKE 1 TABLET BY MOUTH EVERY 12 HOURS NEEDED 12/01 RANITIDINE HCL 44631240893 [facility] 100 MG TABS TAKE 1/2-1 TABLET BY MOUTH AT ONSET OF HEADACHE, MAY REPEAT IN 2 HOURS 05/16 SUMATRIPTAN SUCCINATE 20619752588 [facility] BUT[facility]BITAL-ACETAMINO PHEN 50-325 MG TABS 1 PO BID PRN 12/01 BUTALBITAL-ACETAMI NOPHEN 50338179030 [facility] LORATAD[facility] 10 MG TABS TAKE 1 TABLET BY MOUTH 1 TIME A DAY 07/11 LORATADINE 69772526737 [facility] LEVAQUIN 500 MG ORAL TABLET TAKE 1 TABLET BY MOUTH 1 TIME A DAY FOR 10 DAYS 12/01 LEVOFLOXACIN 50911581873 [facility] IBUPROFEN 800 MG TABS take one tab tid daily with food prn 12/01 IBUPROFEN 37476984887 Jerrica Enamorado MD TAMIFLU 75 MG CAPS TAKE ONE TAB TWICE DAILY FOR 5 DAYS 03/05 OSELTAMIVIR PHOSPHATE 71952907416 Kallie Quinn BRENT ZITHROMAX Z-JOHN 250 MG TABS TAKE 2 TABLETS BY MOUTH ON DAY 1 THEN 1 TABLET BY MOUTH DAILY FOR 4 DAYS (DAY 2-5) 03/05 AZITHROMYCIN 06487412070 Nia Aguilera APRN HYDROXYZINE HCL 10 MG TABS TAKE ONE TABLET 3 TIMES A DAY NEEDED FOR ANXIETY 12/30 HYDROXYZINE HCL 56867778519 Nia Aguilera APRN NORCO 7.5-325 MG ORAL TABLET TAKE ONE TAB ORALLY EVERY 4 HOURS NEEDED FOR PAIN 03/05 HYDROCODONE-ACETAM INOPHEN 02750852757 Nia Aguilera APRN TAMIFLU 75 MG CAPS TAKE ONE TAB TWICE DAILY FOR 5 DAYS 03/05 OSELTAMIVIR PHOSPHATE 16369924065 Nia Aguilera APRN XULANE 150-35 MCG/24HR PTWK 03/15 NORELGESTROMIN-ETH ESTRADIOL 91754295046 Nia Aguilera APRN FERROUS SULFATE 325 (65 Fe) MG TABS TAKE 1 TABLET BY MOUTH 1 TIME A DAY 03/17 FERROUS SULFATE 48417320422 Nia Aguilera APRN QVAR 80 MCG/ACT INHALATION AEROSOL SOLUTION USE 1 PUFF TWICE A DAY 03/27 BECLOMETHASONE DIPROPIONATE 12329815410 Nia Aguilera APRN AMLODIPINE BESYLATE 5 MG TABS TAKE 1 TABLET BY MOUTH 1 TIME A DAY 07/18 AMLODIPINE BESYLATE 34377348790 Cody Whitlock [employer]ER[employer] MEDROL 4 MG TBPK USE DIRECTED 07/11 METHYLPREDNISOLONE 70335642422 Nia Aguilera APRN LORATADINE 10 MG TABS TAKE 1 TABLET BY MOUTH 1 TIME A DAY 07/11 LORATADINE 12237168704 Nia Aguilera APRN LISINOPRIL 20 MG TABS TAKE 1 TABLET BY MOUTH 1 TIME A DAY 12/16 LISINOPRIL 41683644119 Nia Aguilera APRN IMITREX 100 MG TABS TAKE 1/2-1 TABLET BY MOUTH AT ONSET OF HEADACHE, MAY REPEAT IN 2 HOURS 05/16 SUMATRIPTAN SUCCINATE 76810086359 Nia Aguilera APRN XULANE 150-35 MCG/24HR PTWK 03/15 NORELGESTROMIN-ETH ESTRADIOL 86985218886 Nia Aguilera APRN IMITREX 100 MG TABS TAKE 1/2-1 TABLET BY MOUTH AT ONSET OF HEADACHE, MAY REPEAT IN 2 HOURS 05/16 SUMATRIPTAN SUCCINATE 54588769305 Nia Aguilera APRN CEFDINIR 300 MG CAPS TAKE 1 CAPSULE BY MOUTH TWICE A DAY FOR 10 DAYS 05/16 CEFDINIR 40766066266 Nia Aguilera APRN PROMETHAZINE HCL 25 MG TABS TAKE 1 TABLET BY MOUTH EVERY 6 HOURS NEEDED FOR NAUSEA 05/12 PROMETHAZINE HCL 25026936199 Nia Aguilera APRN PREDNISONE 20 MG TABS TAKE 1 TABLET BY MOUTH 3 TIMES A DAY FOR 4 WEEKS. TAKE WITH FOOD. 05/09 PREDNISONE 00504437707 Nia Aguilera APRN FLOVENT HFA 110 MCG/ACT INHALATION AEROSOL TAKE 2 INHALATIONS TWICE A DAY RINSE MOUTH WELL AFTER EACH USE 03/30 FLUTICASONE PROPIONATE HFA 04848144512 Debra Levy APRN QVAR 80 MCG/ACT INHALATION AEROSOL SOLUTION USE 1 PUFF TWICE A DAY 03/27 BECLOMETHASONE DIPROPIONATE 90410280013 Debra Levy APRN FERROUS SULFATE 325 (65 Fe) MG TABS TAKE 1 TABLET BY MOUTH 1 TIME A DAY 03/17 FERROUS SULFATE 40986035036 Debra Levy APRN ACCU-CHEK FASTCLIX LANCET KIT CHECK BS WHEN SYMPTOMATIC OR PREFERRED/GEN JERONIMO 03/15 LANCETS MISC. 94224923365 Nia Aguilera APRN ACCU-CHEK TRINA PLUS STRP CHECK BS WHEN SYMPTOMATIC OR PREFERRED/GEN JERONIMO 03/15 GLUCOSE BLOOD 88095151121 Nia Aguilera APRN ACCU-CHEK TRINA PLUS w/Device KIT CHECK BLOOD SUGAR WHEN SYMPTOMATIC OR PREFERRED/GEN JERONIMO 03/15 BLOOD GLUCOSE MONITORING SUPPL 14638956074 Debra Levy APRN XULANE 150-35 MCG/24HR PTWK 03/15 NORELGESTROMIN-ETH ESTRADIOL 74984108384 Debra Levy APRN OMEPRAZOLE 20 MG CPDR TAKE 1 CAPSULE BY MOUTH ONCE A DAY 12/16 OMEPRAZOLE 50015401897 Debra Levy APRN CALCIUM + D 315-200 MG-UNIT ORAL TABLET TAKE ONE TABLET DAILY 01/27 CALCIUM CITRATE-VITAMIN D 87223020781 Debra Levy APRN CETIRIZINE HCL 10 MG TABS TAKE 1 TABLET BY MOUTH EACH DAY FOR ALLERGIES 03/15 CETIRIZINE HCL 12044785369 Debra Mildred [employer]ER[employer] CETIRIZINE HCL 10 MG TABS TAKE 1 TABLET BY MOUTH EACH DAY FOR ALLERGIES CETIRIZINE HCL 14725996003 Debra Levy APRN FLOVENT HFA 110 MCG/ACT INHALATION AEROSOL TAKE 2 INHALATIONS TWICE A DAY RINSE MOUTH WELL AFTER EACH USE FLUTICASONE PROPIONATE HFA 32908300436 Debra Levy APRN DOXYCYCLINE HYCLATE 100 MG TABS TAKE 1 TABLET BY MOUTH EVERY 12 HRS X 10 DAYS 03/19 DOXYCYCLINE HYCLATE 24338063275 Debra Levy APRN CALCIUM + D 315-200 MG-UNIT ORAL TABLET TAKE ONE TABLET DAILY 01/27 CALCIUM CITRATE-VITAMIN D 87605726686 Marycruz Whitlock APRN VENTOLIN HFA 108 (90 Base) MCG/ACT AERS TAKE 2 INHALATIONS 4 TIMES A DAY NEEDED FOR WHEEZING AND COUGH 12/30 ALBUTEROL SULFATE 13811560639 Nia Aguilera APRN HYDROXYZINE HCL 10 MG TABS TAKE UP TO 3 TIMES A DAY FOR ANXIETY 12/30 HYDROXYZINE HCL 94434719231 Nia Aguilera APRN OMEPRAZOLE 20 MG CPDR TAKE 1 CAPSULE BY MOUTH ONCE A DAY 12/16 OMEPRAZOLE 79024646710 Debra Levy APRN HYDROCHLOROTHIAZIDE 25 MG TABS TAKE 1 TABLET BY MOUTH 1 TIME A DAY 12/16 HYDROCHLOROTHIAZID E 59862841822 Cody Kamlesh [employer] LISINOPRIL 20 MG TABS TAKE 1 TABLET BY MOUTH 1 TIME A DAY 12/16 LISINOPRIL [id number] Debra Levy APRN Medications Administered No information available. Allergies, Adverse Reactions, Alerts Allergy Name Reaction Description Start Date Severity Statu s Provider PERCOCET VOMITING Critical Active Kallie Peace ll [employer]CIAL [employer]ER ILSA INHIBITORS ANGIOEDEMA Critical Active Tar a Ale [employer] SULFA SWELLING Moderate Active Marycruz St alatorreepapi [employer]ER Results Date Name Value Unit Range Flag Description Office Visit: New adult to g et established sn A1 done LDL GOAL <70 mg/dL LDL target l evel Lab Report: IRON AND TOTAL I YUMIKO BINDING CAPACITY, COMPREHENSIVE METABOLI ... VIT D 1,25OH 49 18-72 vitamin D 1,25-dihydroxy, serum RA FACTOR 8 [iU]/mL <14 N Rheumatoid factor [Units/volume] in Serum or Plasma Lab Report: HENNA, IFA PANEL C OMPREHENSIVE, HENNA, IFA PANEL COMPREHENSIVE, ... HENNA HOMO PAT NEGATIVE NEGATIVE N HENNA (a ntinuclear antibody) pattern, homogeneous Lab Report: LIPID PANEL WITH REFLEX TO DIRECT LDL, LIPID PANEL WITH REFL ... TSHREFLX FT4 1.56 m[iU]/L N TSH (thy roid stimulating hormone) with reflex FT4 TRIGLYCRDES 252 mg/dL <150 H Triglycer claudette [Mass/volume] in Serum or Plasma - mg/dL Office Visit: PREDIABETES, D UB, HYPOGLYCEMIA, LABS DRAWN MICROALB TST NORMAL mg/dL Microalb umin [Mass/volume] in Urine SARITA/UR CR RT <30 mg/L microalb umin/creati nine ratio, urine CREATIN UR 50 mg/dL Creatinine [Mass/volume] in Urine ALBUMIN, UR 10 % albumin, urine BG RANDOM 73 mg/dL Glucose [Mass/volume] in Blood Lab Report: FOLATE, SERUM, V ITAMIN B12 B12 699 pg/mL 200-1100 N Cobalamin (V itamin B12) [Mass/volume] in Serum or Plasma FOLATE >24.0 ng/mL N Folate [Mass/volume] in Serum or Plasma Lab Report: IRON, TIBC AND F ERRITIN PANEL, IRON, TIBC AND FERRITIN PANEL ... PROLACTIN 16.3 ng/mL N Prolactin [Mass/volume] in Serum or Plasma LH 7.0 m[iU]/m L N Lutropin [Units/volume] in Serum or Plasma FSH 6.2 m[iU]/m L N Follitropin [Moles/volume] in Serum or Plasma FERRITIN 9 ng/mL 10-232 L Ferritin [Mass/volume] in Serum or Plasma Lab Report: SED RATE BY BERENICE GONZALEZ, CBC (INCLUDES DIFF/PLT), C- ... CRP 0.22 mg/dL <0.80 N C reactive pr otein [Mass/volume] in Serum or Plasma ESR 29 mm/h < OR = 20 H Erythrocyte sedimentation rate by Westergren method Lab Report: LIPID PANEL WITH REFLEX TO DIRECT LDL, LIPID PANEL WITH REFL ... HGBA1C 5.7 % OF TOTAL HGB % <5.7 H Hemoglobin A1c/Hemoglobin, total in Blood - % VIT D 25-OH 38 ng/mL 30-100 N 25-Hydrox ycalcifero l [Mass/volume] in Serum or Plasma TSH 0.48 u[iU]/m L N Thyrotropin [Units/volume] in Serum or Plasma BASO % MANU 0.2 % N basophils as percent of blood leukocytes, manual count EOS % MANU 1.0 % N eosinophil s as percent of blood leukocytes, manual count MONOCYTE % 7.9 % N Monocytes/ 100 leukocytes in Blood by Automated count LYMPH% P BLD 25.4 % N lymphocy conrad as percent of blood leukocytes PMN % 65.5 % N Neutrophils/1 00 leukocytes in Blood by Automated count ABS BASOS 19 {Cells} /uL 0-200 N Basophils [#/volume] in Blood ABS EOS 95 {Cells} /uL 15-500 N Eosinophils [#/volume] in Blood ABS MONOS 751 {Cells} /uL 200-950 N Monocytes [#/volume] in Blood ABSLYMPHCT 2413 {Cells} /uL 850-3900 N Lymphocytes [#/volume] in Blood ABS NEUTROPH 6223 CELLS/UL 10*3/uL 7806-5776 N Neutrophils [#/volume] in Blood MPV 10.0 fL 7.5-11.5 N Platelet kory n volume [Entitic volume] in Blood by Moises PLATELETK/UL 357 THOUSAND/UL 10*3/uL 140-400 N platelet count RDW 14.7 % 11.0-15.0 N Erythrocyte distribution width [Ratio] by Automated count OL-MCHC 34.0 g/dL 32.0-36.0 N mean corpus cular hemoglobin concentration, rbc MCH 31.0 pg 27.0-33.0 N MCH [Entiti c mass] by Automated count MCV 91.2 fL 80.0-100.0 N MCV [Entit ic volume] by Automated count HCT 37.5 % 35.0-45.0 N Hematocrit [Volume Fraction] of Blood by Automated count HGB 12.7 g/dL 11.7-15.5 N Hemoglobin [Mass/volume] in Blood RBC M/UL 4.11 MILLION/UL 10*6/uL 3.80-5.10 N red blood count WBC CT BLOOD 9.5 10*3/uL 3.8-10.8 N leukocy te count, blood SGPT (ALT) 12 U/L 6-29 N Alanine aminotransferase [Enzymatic activity/volume] in Serum or Plasma SGOT (AST) 9 U/L 10-30 L Aspartate aminotransferase [Enzymatic activity/volume] in Serum or Plasma ALK PHOS 52 U/L 33-115 N Alkaline phosphatase [Enzymatic activity/volume] in Blood BILI TOTAL 0.3 mg/dL 0.2-1.2 N Bilirubin. total [Mass/volume] in Serum or Plasma A/G RATIO 1.3 (calc) 1.0-2.5 N Albumin/ Globulin [Mass Ratio] in Serum or Plasma GLOBULIN TOT 3.2 G/DL (CALC) g/dL 1.9-3.7 N Globulin [Mass/volume] in Serum ALBUMIN EOP 4.0 g/dL 3.6-5.1 N Albumin [Mass/volume] in Serum or Plasma by Electrophoresis PROTEIN, TOT 7.2 g/dL 6.1-8.1 N Protein [Mass/volume] in Serum or Plasma CALCIUM 9.4 mg/dL 8.6-10.2 N Calcium [Moles/volume] in Serum or Plasma CO2 24 mmol/L 20-31 N Carbon dioxid e, total [Moles/volume] in Venous blood CHLORIDE BLD 103 mmol/L 98-110 N chloride , blood POTASSIUM 3.4 mmol/L 3.5-5.3 L Potassium [Moles/volume] in Serum or Plasma SODIUM 136 mmol/L 135-146 N Sodium [Moles/volume] in Serum or Plasma BUN/CREAT NOT APPLICABLE (calc) 6-22 Urea nitrogen/Creatinine [Mass Ratio] in Serum or Plasma EGFR IF AFA 113 mL/min/ 1.73m2 >OR = 60 N Glomerular filtration rate/1.73 sq M.predicted among blacks [Volume Rate/Area] in Serum, Plasma or Blood by Creatinine-based formula (MDRD) EGFR 97 mL/min/ 1.73m2 >OR = 60 N Glomerular filtration rate/1.73 sq M.predicted [Volume Rate/Area] in Serum, Plasma or Blood by Creatinine-based formula (MDRD) CREATININE 0.76 mg/dL 0.50-1.10 N Creatini ne [Mass/volume] in Serum or Plasma BUN 15 mg/dL 7-25 N Urea nitrogen [Mass/volume] in Serum or Plasma GLUCOSE SER 89 mg/dL 65-99 N Glucose [Mass/volume] in Serum or Plasma IRON SATUR % 21 % (CALC) % 11-50 N Iron saturation [Mass Fraction] in Serum or Plasma IRON 119 ug/dL 40-190 N Iron [Mass/vo lume] in Serum or Plasma NON-HDL CHOL 175 MG/DL (CALC) mg/dL H cholesterol, non-HDL, total CHOL/HDL % 4.5 (calc) < OR = 5.0 N chol esterol/HDL ratio, serum, percent LDL 123 MG/DL (CALC) mg/dL <130 N Cholesterol in L DL [Mass/volume] in Serum or Plasma - mg/dL TRIGLYC TOT 260 mg/dL <150 H Triglycer claudette [Mass/volume] in Serum or Plasma - mg/dL HDL 50 mg/dL >OR = 46 N Cholesterol in HDL [Mass/volume] in Serum or Plasma - mg/dL CHOLESTEROL 225 mg/dL 125-200 H Cholester ol [Mass/volume] in Serum or Plasma - mg/dL Chart Maintenance: PRELOAD P AP/HPV RESULTS HPV RESULT NOT DETECTED Human papilloma virus identified in Specimen Office Visit: RLQ PAIN RM 1 READY PREG TST URN negative beta HC G, urine, semiquantitative Lab Report: BV/VAGINITIS ARELLANO EL DNA PROBE DNAPROBECAND NOT DETECTED NOT DETECTED N Laurel guilliermondii DNA [Presence] in Specimen by LAUREN with probe detection VAGCULTGARDN NOT DETECTED NOT DETECTED N Vaginal Culture Gardnerella TRICHO WET NOT DETECTED NOT DETECTED N Trichomonas vaginalis [Presence] in Genital specimen by Wet preparation Office Visit: uti, ear pain sore throat strep neg urine in chart room 9 LABS ORDERED Urine Dip Auto 35788, Strep Screen 86302 Laboratory tests ordered PH URINE 7.0 pH of Urine by Test strip SPEC GR URIN 1.020 Specific gravity of Urine by Test strip APPEARANCE U clear Appearan ce of Urine UA COLOR yellow Color of Uri ne RAPID STREP negative Streptoc occus pyogenes DNA [Presence] in Throat by LAUREN with probe detection GLUCOSE, URN negative Glucose [Mass/volume] in Urine by Test strip BILIRUBIN UR negative Bilirub in.total [Presence] in Urine by Test strip KETONES URN negative Ketones [Mass/volume] in Urine by Test strip BLOOD UR DIP trace blood in urine (hemoglobin) by dipstick PROTEIN, URN negative protein , urine, semiquantitative (dipstick) UROBILINOGEN negative Urobili nogen [Presence] in Urine by Test strip NITRITE URN positive Nitrite [Presence] in Urine by Test strip WBC DIPSTK U negative Leukocy te esterase [Presence] in Urine by Test strip Plan of Care Type Date Detail Referral Gastroenterology [facility], [address], [place], [place] Referral excluded fr om report: Referral [facility]Podiatry Podiatry [facility], [address] [place], [address] Referral [facility]-Podiatry Podiatry [facility], [address] [place], [address] Referral excluded fr om report: Referral [facility] Ear No se & Throat-ENT Throat [facility], [address], [place], [address] Referral [facility], [address], First Floor, [address], [address], [place], [address] Referral Cardiology Refer [facility] , [address], [place], [address] Referral Urology Referral [facility], [address], [address]nd Floor, [address], [place], [place] Referral TAP BUILDER Referral [facility], [address], [place], [address] Referral Urology Referral [facility]rology [facility], [address], [address], [address], [place], [place] Pending order T1 CBC with diff Pending Order exclud ed from report: Pending order T1 CMP Pending Order exclud ed from report: Pending order T1 HGBA1c Pending Order exclud ed from report: Pending order T1 Lipid Panel Pending Order exclud ed from report: Pending order T1 TSH reflex to free T4 Pending Order exclud ed from report: Pending order T2 Vitamin D 25 Hydroxy Pending Order exclud ed from report: Pending order Urine Dip Auto 8 1003 Pending order Strep Screen 878 80 Pending order T1 Urine Culture Pending order Urine Dip Auto 8 1003 Pending order Test 8 1025 Pending order T2 BV Yeast Tric h Culture (Affirm) Pending order Ultrasound Pelvi s Pending Order exclud ed from report: Pending order Urine Dip Auto 8 1003 Pending order Test 8 1025 Pending order X-Ray Chest Pending Order exclud ed from report: Pending order CBC with diff Pending order CMP Pending order HGBA1c Pending order Lipid Panel Pending order TIBC w iron leve l Pending order TSH reflex to fr ee T4 Pending order Vitamin D 25 Hyd joo Pending order Urine Dip Auto 8 1003 Pending order Medication Recon ciliation Pending order Urine Dip Auto 8 1003 Pending order Test 8 1025 Pending order Medication Recon ciliation Pending order Other Pending order Medication Recon ciliation Pending order Medication Recon ciliation Pending order Injection(s) Ord ered Pending order Toradol per 15 m g Pending order Medication Recon ciliation Pending order CBC with diff Pending order Sedimentation Ra te RBC Pending order Other Pending order Medication Recon ciliation Pending order CBC with diff Pending order CMP Pending order HGBA1c Pending order TIBC w iron leve l Pending order TSH reflex to fr ee T4 Pending order Other Pending order Medication Recon ciliation Pending order B12 Pending order CBC with diff Pending order CMP Pending order HGBA1c Pending order Estradiol Pending order FSH Pending order Folic Acid Pending order Prolactin Pending order LH Pending order TSH reflex to fr ee T4 Pending order TIBC w iron leve l Pending order Other Pending order SNOMED-CT: 14878 3000 Smoking Cessation Counseling Pending order SNOMED-CT: 61156 [id number] Current Medications Documented Pending order CBC with diff Pending order CMP Pending order Lipid Panel Pending order HGBA1c Pending order TSH reflex to fr ee T4 Pending order Vitamin D 25 Hyd joo Pending order Fluzone High-Dos e Intramuscular Suspension Pending order IMADM >18YR IM R OUTE 1ST VAC/TOXOID Pending order Other Pending order SNOMED-CT: 35450 3000 Smoking Cessation Counseling Pending order SNOMED-CT: 54756 [id number] Current Medications Documented Pending order Sedimentation Ra te RBC Pending order CBC with diff Pending order CMP Pending order Other Pending order Strep Screen 878 80 Pending order Mammogram Diagno stic Pending order ThinPrep Pap w r eflex HR HPV/GC/Chlamydia mRNA E6/E7 Pending order HENNA Pending order CBC with diff Pending order CMP Pending order Lipid Panel Pending order HGBA1c Pending order Rheumatoid Facto r Quant Pending order Sedimentation Ra te RBC Pending order TIBC w iron leve l Pending order TSH reflex to fr ee T4 Pending order Vitamin D 25 Dih ydroxy Pending order X-Ray Thoracic S pine Pending Order exclud ed from report: Pending order X-Ray Lumbar Spi ne Pending Order exclud ed from report: Pending order X-Ray Cervical S pine Pending Order exclud ed from report: Pending order X-Ray Cervical S pine Pending order X-Ray Lumbar Spi ne Pending order X-Ray Thoracic S pine Pending order Urine Drug Scree n w/o Confirmation Patient education Patient Educat ion Given Patient education Patient Educat ion Given Patient education Patient Educat ion Given Patient education Patient Educat ion Given Patient education Medications Patient education Patient Educat ion Given Patient education Medications Patient education Patient Educat ion Given Patient education Medications Patient education Patient Educat ion Given Patient education Medications Patient education Patient Educat ion Given Patient education Medications Patient education Patient Educat ion Given Patient education Medications Patient education Medications Patient education Patient Educat ion Given Patient education Medications Patient education Patient Educat ion Given Patient education Medications Patient education Patient Educat ion Given Patient education Medications Patient education Medications Patient education Medications Patient education Medications Patient education Medications Patient education Medications Patient education Medications Patient education Medications Patient education Medications Patient education Medications Patient education Medications Procedures Code Procedure Name Date Entry Date [facility]-[id number] Medication Reconciliation [facility] 6399 T1 CBC with diff [facility] 34637 T1 CMP [facility] 496 T1 HGBA1c [facility] 85605 T1 Lipid Panel [facility] 03817 T1 TSH reflex to free T4 12/02/13 [facility] 15459 T2 Vitamin D 25 Hydroxy 2020 CPT-3075F Most recent systolic blood pressure 130-139 mm Hg CPT-3079F Most recent diastoli c blood pressure 80-89 mm Hg SCT-[id number] Medication Reconciliation CPT-3077F Most recent systolic blood pressure >=140 mm Hg CPT-3079F Most recent diastoli c blood pressure 80-89 mm Hg [facility] 395 T1 Urine Culture CPT-33142 Urine Dip Auto 44258 CPT-03346 Strep Screen 25610 5 SCT-[id number] Medication Reconciliation US PELVIS YNES Ultrasound Pelvis 7 CPT-3077F Most recent systolic blood pressure >=140 mm Hg CPT-1159F Medication list docu mented in medical record CPT-1160F Review of all medica tions by a prescribing practitioner CPT-98748 Urine Dip Auto 39621 CPT-07085 Test 76203 [facility] 25418 T2 BV Yeast Trich Culture (Affirm) 12/22 SCT-[id number] Medication Reconciliation SCT-[id number] SNOMED-CT: 310263664 897313 Current Medications Documented [facility] CPT-3075F Most recent systolic blood pressure 130-139 mm Hg NEURO GEN Neurology Referral General 2 SCT-[id number] Medication Reconciliation CPT-3074F Most recent systolic blood pressure <130 mm Hg CPT-3079F Most recent diastoli c blood pressure 80-89 mm Hg SCT-[id number] Medication Reconciliation SCT-[id number] SNOMED-CT: 517838252 660234 Current Medications Documented CPT-3074F Most recent systolic blood pressure <130 mm Hg CPT-3074F Most recent systolic blood pressure <130 mm Hg [facility] SCT-[id number] Medication Reconciliation ct abd pel w-out edg CT Abdomen and Pelvis w-out contr ast CPT-3074F Most recent systolic blood pressure <130 mm Hg CPT-16703 Test 54294 CPT-59697 Urine Dip Auto 33913 SCT-[id number] Medication Reconciliation X-Ray Chest X-Ray Chest CPT-3077F Most recent systolic blood pressure >=140 mm Hg SCT-[id number] Dietary management education/guidance/counseling SCT-[id number] Medication Reconciliation CPT-3075F Most recent systolic blood pressure 130-139 mm Hg CPT-3079F Most recent diastoli c blood pressure 80-89 mm Hg Podiatry [facility] 0 SCT-[id number] Medication Reconciliation CPT-71140 Fluzone Quadrivalent Preservative Free Intramuscular Suspension 0.5 ML CPT-47733 IMADM >18YR IM ROUTE 1ST VAC/TOXOID 10/26 6399 [facility] Test # CBC with diff 1 95219 [facility] Test # CMP 1 496 [facility] Test # HGBA1c 37878 [facility] # Lipid Panel 1 7573 [facility] # TIBC w iron level 10/26 09434 [facility] Test # TSH reflex to free T4 25972 [facility] Test # Vitamin D 25 Hydroxy 2 CPT-43906 Urine Dip Auto 71691 SCT-[id number] Medication Reconciliation SCT-[id number] Medication Reconciliation CPT-07781 Urine Dip Auto 69773 CPT-69789 Test 50638 SCT-[id number] Medication Reconciliation SCT-[id number] Medication Reconciliation Other Other ENT [facility] Ear Nose & Throat-ENT 5 SCT-[id number] Medication Reconciliation INJORDER Injection(s) Ordered CPT-J1885 Toradol per 15 mg SCT-[id number] Medication Reconciliation 6399 [facility] Test # CBC with diff 4 809 [facility] Test # Sedimentation Rate RBC 2 Other [facility] Other Neuro Ref [facility] CPT-92183 Venipuncture 76375 5 SCT-[id number] Medication Reconciliation 6399 [facility] Test # CBC with diff 5 07911 [facility] Test # CMP 5 496 [facility] Test # HGBA1c 7573 [facility] Test # TIBC w iron level 03/30 83125 [facility] Test # TSH reflex to free T4 Other [facility] Other CPT-90089 Venipuncture 08476 0 927 [facility] Test # B12 466 [facility] Test # Folic Acid SCT-[id number] Medication Reconciliation 6399 [facility] Test # CBC with diff 0 60860 [facility] Test # CMP 0 496 [facility] # HGBA1c 4021 [facility] # Estradiol 470 [facility] # FSH 746 [facility] Test # Prolactin 615 [facility] Test # [place] [address] [facility] Test # TSH reflex to free T4 7573 [facility] Test # TIBC w iron level 03/15 Other [facility] Other SCT-[id number] SNOMED-CT: 381309315 Smoking Cessation Counseling SCT-[id number] SNOMED-CT: 346875207 926467 Current Medications Documented 6399 [facility] Test # CBC with diff 9 52704 [facility] Test # CMP 9 25272 [facility] Test # Lipid Panel 9 496 [facility] Test # HGBA1c 59867 [facility] Test # TSH reflex to free T4 59201 [facility] Test # Vitamin D 25 Hydroxy 2 Other Other Cardiology Referral Cardiology Referral [facility] CPT-36958 Fluzone High-Dose Intramuscular Suspensio n CPT-10703 IMADM >18YR IM ROUTE 1ST VAC/TOXOID 09/13 SCT-[id number] SNOMED-CT: 854362581 Smoking Cessation Counseling SCT-[id number] SNOMED-CT: 050642333 051581 Current Medications Documented [facility]OLOGY [facility] Referral Urology TAP BUILDER Referral TAP BUILDER Referral [facility] CPT-03907 Strep Screen 01864 4 809 [facility] Test # Sedimentation Rate RBC 2 6399 [facility] Test # CBC with diff 4 44218 [facility] Test # CMP 4 Other [facility] Other Mammo DX YNES Mammogram Diagnostic [facility]# 38991 ThinPrep Pap w refle x HR HPV/GC/Chlamydia mRNA E6/E7 CPT-95010 Venipuncture 91822 4 249 [facility] Test # HENNA 6399 [facility] Test # CBC with diff 4 79383 [facility] Test # CMP 4 16327 [facility] Test # Lipid Panel 4 496 [facility] # HGBA1c 4418 [facility] # Rheumatoid Factor Quant 809 [facility] # Sedimentation Rate RBC 2 7573 [facility] Test # TIBC w iron level 12/30 78603 [facility] Test # TSH reflex to free T4 84536 [facility] Test # Vitamin D 25 Dihydroxy X-Ray Thoracic Spine X-Ray Thoracic Spine X-Ray Lumbar Spine X-Ray Lumbar Spine 201 03/26/21 X-Ray Cervical Spine X-Ray Cervical Spine 35101 [facility] Test # Urine Drug Screen w/o Confirmation Vital Signs Date Name Value Unit Description BMI (Body Mass Index) 30.61 kg/m2 Bod y Mass Index (Ratio) Body Temperature 98.5 [degF] temperat ure E&M Body Temperature 36.94 Rola temperat ure in centigrade E&M BP Diastolic 83 mm[Hg] blood pressu re, diastolic BP Systolic 139 mm[Hg] blood pressur e, systolic BSA (Body Surface Area) 1.69 b grace surface area Heart Rate 83 /min pulse rate Height 59 [in_us] height E&M Height 149.86 cm height in cent imeters E&M Respiratory Rate 16 /min respirat ory rate E&M Weight Measured 68.64 kg weight in kilograms E&M Weight Measured 151 [lb_av] weight E& M Weight Measured 151 [lb_av] weight E& M Heart Rate 90 /min pulse rate 10 BP Diastolic 97 mm[Hg] blood pressu re, diastolic, second observation BP Systolic 139 mm[Hg] blood pressur e, systolic, second observation Immunizations Vaccine Administration Date Standard Description CVX Co de Dose Influenza Influenza 135 0.5 mL Fluzone Preservative Free Intramuscular Suspension 36mo+ 0.5ml Fluzone Preservative Free Intramuscular Suspension 36mo+ 0.5ml 140 0.5 mL Influenza, Seasonal Influenza, Seasonal 141 Unknown Influenza, Seasonal Influenza, Seasonal 141 Unknown Influenza Quad Inj Influenza Quad Inj 150 Unknown Influenza Quad Inj Influenza Quad Inj 150 Unknown Influenza Quad W/Pres Influenza Quad W/Pres 158 Unknown Hep A, adult Hep A, adult 52 Unknown Hep B, adult Hep B, adult 43 Unknown Tdap, Adsorbed Tdap, Adsorbed 115 Unknow n Advance Directives Directive Description Start Date DISCUSSED - NO DECISION MADE
--- OUTSIDE RECORDS SUMMARY | 2025-06-09 12:00 | XMS_ITS | Encounter Summary ---
Author Organization [employer] ([place], [place], [place], [place]) Address [address] [place] [address] Care Team Providers Care Automobile Mechanic Apprentice Name Role Phone Unavailable Primary Care Provider Unavailabl e Encounter Details Date Type Department Care Team (Late st Contact Info) Description 01/01/2019 Transcribed Document [facility] [place] [place] Family [place] [facility] [place] [address] ProviderElena MD [address] [place] [id number] Social History Tobacco Use Types Packs/Day Years Used Date Smoking Tobacco: Never Assessed Comments Unknown Sex and Gender Information Value Date Recorded Sex Assigned at Not on file Legal Sex Female 5:06 PM CDT Gender Identity Not on file Sexual Orientation Not on file documented as of this encounter Miscellaneous Notes * Cerner Conversion Note - Historical ProviderMD - 01/01/2019 11:40 AM 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 c/o nausea. no vomiting. also c/o shortness of air. c/ tightness in chest. also c/o headache since this morning. . History of Present Illness The patient presents with chest pain. The onset was just prior to arrival. The course/duration of symptoms is constant. Location: generalized. Radiating pain: none. The character of symptoms is heaviness, tightness and pressure. The degree at onset was moderate. The degree at maximum was moderate. The degree at present is moderate. The exacerbating factor is none. The relieving factor is none. Risk factors consist of smoking and obesity. Prior episodes: none. Therapy today None. Associated symptoms: denies shortness of breath and denies palpitations. Review of Systems Constitutional symptoms: Negative except as documented in HPI. Skin symptoms: Negative except as documented in HPI. Eye symptoms: Negative except as documented in HPI. ENMT symptoms: Negative except as documented in HPI. Respiratory symptoms: Negative except as documented in HPI. Cardiovascular symptoms: Negative except as documented in HPI. Gastrointestinal symptoms: Negative except as documented in HPI. Genitourinary symptoms: Negative except as documented in HPI. Musculoskeletal symptoms: Negative except as documented in HPI. Neurologic symptoms: Negative except as documented in HPI. Psychiatric symptoms: Negative except as documented in HPI. Endocrine symptoms: Negative except as documented in HPI. Hematologic/Lymphatic symptoms: Negative except as documented in HPI. Allergy/immunologic symptoms: Negative except as documented in HPI. Additional review of systems information: All other systems reviewed and otherwise negative. Health Status Allergies: Allergic Reactions (Selected) Severity Not Documented Lisinopril- No reactions were documented. Percocet 5/325- No reactions were documented. SulfADIAZINE- C/o: a swelling, redness and c/o: a swelling~redness.. Past Medical/ Family/ Social History Surgical history: section ([id number]). LEEP ([id number]).. Family history: No family history items have been selected or recorded.. Social history: Social & Psychosocial Habits Alcohol 08/18/2014 Alcohol Use in Last Twelve Months No Employment/School 10/15/2018 Status: Employed Description: [employer] Home/Environment 10/15/2018 Lives with: Children Substance Abuse 12/19/2015 Recreational Drug Use History No Recreational Drug Use Last 12 Months No Tobacco 06/08/2017 Smoking Status Current every day smoker Smoking Frequency Within Last 30 Days Five or more cigarettes p Tobacco Use Within Last Twelve Months Cigarettes Packs/Tins Daily 0.5 Second Hand Smoke Exposure Yes . Physical Examination Vital Signs Vital Signs/Vital Measures 01/01/2019 11:24 EST Temperature Source Oral Temperature Mode Fahrenheit Temperature, Fahrenheit 97.8 Deg F Clinical Temperature, C 36.6 Deg C Peripheral Pulse Rate 78 bpm Respiratory Rate 20 Breaths/Min Blood Pressure Location Arm, right upper Blood Pressure Source Non-Invasive BP Device Systolic Blood Pressure 138 mmHg Diastolic Blood Pressure 78 mmHg Oxygen Saturation 100 % Oxygen Therapy Mode Room air . Measurements 01/01/2019 11:24 EST Height Source Stated Height Entry Format Twiggs Height/Length, MOZAMBICAN (ft) 4 ft Height/Length MOZAMBICAN 11 Inch CLINICALHEIGHT 149.86 cm [place] Body Weight 42.87 kg Weight Source, ED Critical estimated dosing weight Weight Entry Format Twiggs Weight Jamaican lb 145 lb CLINICALWEIGHT 65.91 kg Body Surface Area (BSA) 1.61 m2 Body Mass Index 29.3 kg/m2 HI . Oxygen Saturation 01/01/2019 11:24 EST Oxygen Saturation 100 % . General: Alert, no acute distress. Skin: Warm, dry, pink. Head: Normocephalic, atraumatic. Neck: Supple. Eye: Pupils are equal, round and reactive to light, extraocular movements are intact, normal conjunctiva. Cardiovascular: Regular rate and rhythm, No murmur. Respiratory: Lungs are clear to auscultation, respirations are non-labored, breath sounds are equal, Symmetrical chest wall expansion. Gastrointestinal: Soft, Nontender, Non distended, Normal bowel sounds, No organomegaly. Back: Nontender. Musculoskeletal: Normal ROM. Neurological: Alert and oriented to person, place, time, and situation, No focal neurological deficit observed, CN II-XII intact, normal sensory observed, normal motor observed, normal speech observed, normal coordination observed. Medical Decision Making Differential Diagnosis: Angina, anxiety, atypical chest pain, costochondritis. 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 Results review: All Results 01/01/2019 12:31 EST Vital Measurements-Text 01/01/2019 12:17 EST ED Nursing Record 01/01/2019 11:56 EST CR Chest 1 Vw Portable REPORT (Unauth) 01/01/2019 11:40 EST ED Physician Notes Chest pain (In Progress) 01/01/2019 11:24 EST ED Nursing Record 01/01/2019 11:21 EST Consent Forms Consent Forms 01/01/2019 12:31 EST Temperature Mode Fahrenheit Systolic Blood Pressure, Supine 115 mmHg Diastolic Blood Pressure, Supine 72 mmHg Pulse Supine 67 bpm Systolic Blood Pressure, Sitting 122 mmHg Diastolic Blood Pressure, Sitting 76 mmHg Pulse Sitting 70 bpm Systolic Blood Pressure, Standing 118 mmHg Diastolic Blood Pressure, Standing 81 mmHg Pulse Standing 76 bpm 01/01/2019 12:23 EST Estimated Creatinine Clearance 72.75 mL/Min 01/01/2019 12:17 EST Level of Consciousness Alert, Awake Orientation Oriented x 4 Affect/Behavior Cooperative Cardiovascular Assessment WDL WDL with exceptions Cardiovascular Symptoms Chest discomfort at rest, Chest pain with activity Heart Rhythm Regular Skin Description Dry Skin Temperature Warm Communication Barrier None Primary Language Jamaican Information Obtained From Patient Smoking Status 5-9 cigarettes (between 1/4 to 1/2 pack)/day in last 30 days Desires Tobacco Cessation Medication No Smokeless Tobacco Status Never Any Spiritual/Cultural Needs or Requests No Currently in Unsafe Situation No Chest Pain Yes 01/01/2019 11:57 EST EKG Completed by FRANCE ARITA EKG Time Completed 01/01/2019 11:27 EKG Communicated to Provider NAE GREEN MD 01/01/2019 11:38 EST Sodium Level 138 mmol/L Potassium Level 3.3 mmol/L LOW Chloride Level 99 mmol/L Carbon Dioxide Level 30 mmol/L Anion Gap 12 Glucose Level 126 mg/dL HI Blood Urea Nitrogen 13 mg/dL Creatinine Level 0.68 mg/dL eGFR 114 mL/min/1.73m2 eGFR NonAfrican 94 mL/min/1.73m2 Bun/Creatinine 19.118 NA Calcium Level 9.6 mg/dL Troponin I Ultra <0.017 ng/mL WBC 12.0 K/uL HI RBC 3.80 Million/uL LOW Hgb 12.3 Gram/dL Hct 34.4 % MCV 90.5 fL MCH 32.4 pg HI MCHC 35.8 Gram/dL Platelet Count 480 K/uL HI MPV 9.1 fL LOW RDW 12.9 % Slide Review No 01/01/2019 11:29 EST Estimated Creatinine Clearance 85.29 mL/Min D-BOOST Polypharmacy Yes 01/01/2019 11:27 EST ECG Done 01/01/2019 11:25 EST Nurse Collect Order Detail 3.00 01/01/2019 11:25 EST Nurse Collect Order Detail 3.00 01/01/2019 11:24 EST Temperature Source Oral Temperature Mode Fahrenheit Temperature, Fahrenheit 97.8 Deg F Clinical Temperature, C 36.6 Deg C Peripheral Pulse Rate 78 bpm Respiratory Rate 20 Breaths/Min Blood Pressure Location Arm, right upper Blood Pressure Source Non-Invasive BP Device Systolic Blood Pressure 138 mmHg Diastolic Blood Pressure 78 mmHg Oxygen Saturation 100 % Oxygen Therapy Mode Room air Height Source Stated Height Entry Format Twiggs Height/Length, MOZAMBICAN (ft) 4 ft Height/Length MOZAMBICAN 11 Inch CLINICALHEIGHT 149.86 cm [place] Body Weight 42.87 kg Weight Source, ED Critical estimated dosing weight Weight Entry Format Twiggs Weight Jamaican lb 145 lb CLINICALWEIGHT 65.91 kg Body Surface Area (BSA) 1.61 m2 Body Mass Index 29.3 kg/m2 HI Pain Assessment Initial assessment Pain Scale Goal Comment 0 Pain Scale Used 0-10 Scale Pain Intensity 6 Pain Location Chest ABCs Fall Injury Risk Identification None JOHNSON Hx Falls Immediate/Within 3 Months No Johnson Secondary Diagnosis No JOHNSON Ambulatory Aid None Johnson IV Therapy or IV Access No Johnson Gait/Transferring Normal, bedrest, immobile JOHNSON Mental Status Oriented to own ability Johnson Fall Risk Score 0 Johnson Fall Scale Risk Level 0-24 Low Risk [place] Fall Interventions Adequate lighting, Bed in low position, Call device within reach, Wheels locked, Wires/Cords secured Tuberculosis Symptoms None Infectious Disease History Chicken pox/Shingles, Mumps, Other: 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 Within Last 30 Days No Contact With Traveler to Advisory Region No Chief Complaint here with c/o chest pain starting just prior to arrival. c/o nausea. no vomiting. also c/o shortness of air. c/ tightness in chest. also c/o headache since this morning. Transported to ED by Private vehicle To Room Via Wheelchair Tracking Acuity 2 - Emergent Accompanied by Friend Mode of Arrival Ambulatory Tetanus Immunization Greater than 5 years 01/01/2019 11:23 EST Nurse Collect Order Detail 3.00 01/01/2019 11:23 EST Nurse Collect Order Detail 3.00 01/01/2019 11:20 EST Nurse Collect Order Detail 3.00 Nurse Collect Order Detail 3.00 . Chest X-Ray: No acute disease process, interpretation by Emergency Physician. Impression and Plan Diagnosis Chest pain - Discharge, Emergency medicine, Medical Plan Condition: Stable. Disposition: Discharged Admit/Transfer/Discharge: Discharge (Order): Start: 01/01/2019 13:03 EST, Discharge to: Home. Prescriptions: Prescription [facility]: [facility] 7.5 mg-325 mg oral tablet (Prescribe): 1 Tab, Oral, Q4H, for 2 Day(s), PRN: as needed for pain, 12 Tab, 0 Refill(s). Patient was given the following educational materials: Nonspecific Chest Pain. Follow up with: [facility] Within 2 to 3 days. Counseled: Patient, Regarding diagnosis, Regarding diagnostic results, Regarding treatment plan, Regarding prescription, Patient indicated understanding of instructions. documented in this encounter Plan of Treatment Not on file documented as of this encounter Visit Diagnoses Not on filedocumented in this encounter
--- OUTSIDE RECORDS SUMMARY | 2025-06-09 12:00 | XMS_ITS | Encounter Summary ---
Author Organization [facility] Address [address] [place] [address] Care Team Providers Care Choke Reamer Name Role Phone Karime Pinto APRN, DNP Primary Care Provider + Reason for Visit * Reason Comments Med Refill Encounter Details Date Type Department Care Team (Late st Contact Info) Description 05/03/2021 Refill Lorna Bee [address] [phone] Karime Pinto APRN, DNP [address] [place] [phone] Social History Tobacco Use Types Packs/Day Years Used Date Smoking Tobacco: Every Day Comments Unknown Sex and Gender Information Value Date Recorded Sex Assigned at Not on file Legal Sex Female 8:21 PM EDT Gender Identity Not on file Sexual Orientation Not on file documented as of this encounter Miscellaneous Notes * Telephone Encounter - Najma Vang - 05/20/2021 7:42 AM EDT Patient has been alerted that an appointment is necessary before any more refills will be given. documented in this encounter Plan of Treatment Not on file documented as of this encounter Visit Diagnoses Not on filedocumented in this encounter Care Teams Choke Reamer Relationship Specialty Start Date End Date Karime Pinto APRN, DNP [address] [place] [phone] PCP - General 04/08/21 08/23/21 documented as of this encounter
--- OUTSIDE RECORDS SUMMARY | 2025-06-09 12:00 | XMS_ITS | Encounter Summary ---
Author Organization [employer] ([place], [place], [place], [place]) Address [address] [place] [address] Care Team Providers Care Railroad Inspector Name Role Phone Unavailable Primary Care Provider Unavailabl e Encounter Details Date Type Department Care Team (Late st Contact Info) Description 01/01/2019 Transcribed Document [facility] [place] [facility] [place] [address] ProviderElena MD [address] [place] [address] [id number] Social History Tobacco Use Types Packs/Day Years Used Date Smoking Tobacco: Never Assessed Comments Unknown Sex and Gender Information Value Date Recorded Sex Assigned at Not on file Legal Sex Female 5:06 PM CDT Gender Identity Not on file Sexual Orientation Not on file documented as of this encounter Miscellaneous Notes * Cerner Conversion Note - Historical ProviderMD - 01/01/2019 2:13 PM STRATEGIC SOURCING SPECIALIST [facility] [address] [place] [address] Patient Information Name: DONYA MALDONADO Age: 43 Years Date of : 1975 Arrival Time: 01/01/2019 11:20:00 Diagnosis Chest pain Primary Care Physician: KEVEN SELLERS, SENIOR RESEARCH FELLOW-INT Provider Information Primary Provider: NAE GREEN MD Secondary Provider: DONYA MALDONADO has been given the following list of patient education materials, prescriptions and follow-up instructions: Follow-up Instructions: With: Address: When: KEVEN SELLERS [address] [facility] [address] [place] [id number] Business (1) Within 2 to 3 days Patient Education Materials: Nonspecific Chest Pain Chest pain can be caused by many different conditions. There is always a chance that your pain could be related to something serious, such as a heart attack or a blood clot in your lungs. Chest pain can also be caused by conditions that are not life-threatening. If you have chest pain, it is very important to follow up with your health care provider. What are the causes? Causes of this condition include: ??? Heartburn. ??? Pneumonia or bronchitis. ??? Anxiety or stress. ??? Inflammation around your heart (pericarditis) or lung (pleuritis orpleurisy). ??? A blood clot in your lung. ??? A collapsed lung (pneumothorax). This can develop suddenly on its own (spontaneous pneumothorax) or from trauma to the chest. ??? Shingles infection (varicella-zoster virus). ??? Heart attack. ??? Damage to the bones, muscles, and cartilage that make up your chest wall. This can include: ? Bruised bones due to injury. ? Strained muscles or cartilage due to frequent or repeated coughing or overwork. ? Fracture to one or more ribs. ? Sore cartilage due to inflammation (costochondritis). What increases the risk? Risk factors for this condition may include: ??? Activities that increase your risk for trauma or injury to your chest. ??? Respiratory infections or conditions that cause frequent coughing. ??? Medical conditions or overeating that can cause heartburn. ??? Heart disease or family history of heart disease. ??? Conditions or health behaviors that increase your risk of developing a blood clot. ??? Having had chicken pox (varicella zoster). What are the signs or symptoms? Chest pain can feel like: ??? Burning or tingling on the surface of your chest or deep in your chest. ??? Crushing, pressure, aching, or squeezing pain. ??? Dull or sharp pain that is worse when you move, cough, or take a deep breath. ??? Pain that is also felt in your back, neck, shoulder, or arm, or pain that spreads to any of these areas. Your chest pain may come and go, or it may stay constant. How is this diagnosed? Lab tests or other studies may be needed to find the cause of your pain. Your health care provider may have you take a test called an ECG (electrocardiogram). An ECG records your heartbeat patterns at the time the test is performed. You may also have other tests, such as: ??? Transthoracic echocardiogram (TTE). In this test, sound waves are used to create a picture of the heart structures and to look at how blood flows through your heart. ??? Transesophageal echocardiogram (GEORGE).?This is a more advanced imaging test that takes images from inside your body. It allows your health care provider to see your heart in finer detail. ??? Cardiac monitoring. This allows your health care provider to monitor your heart rate and rhythm in real time. ??? Holter monitor. This is a portable device that records your heartbeat and can help to diagnose abnormal heartbeats. It allows your health care provider to track your heart activity for several days, if needed. ??? Stress tests. These can be done through exercise or by taking medicine that makes your heart beat more quickly. ??? Blood tests. ??? Other imaging tests. How is this treated? Treatment depends on what is causing your chest pain. Treatment may include: ??? Medicines. These may include: ? Acid blockers for heartburn. ? Anti-inflammatory medicine. ? Pain medicine for inflammatory conditions. ? Antibiotic medicine, if an infection is present. ? Medicines to dissolve blood clots. ? Medicines to treat coronary artery disease (CAD). ??? Supportive care for conditions that do not require medicines. This may include: ? Resting. ? Applying heat or cold packs to injured areas. ? Limiting activities until pain decreases. Follow these instructions at home: Medicines ??? If you were prescribed an antibiotic, take it as told by your health care provider. Do not stop taking the antibiotic even if you start to feel better. ??? Take cfoz-lag-[id number] and prescription medicines only as told by your health care provider. Lifestyle ??? Do notuse any products that contain nicotine or tobacco, such as cigarettes and e-cigarettes. If you need help quitting, ask your health care provider. ??? Do notdrink alcohol. ??? Make lifestyle changes as directed by your health care provider. These may include: ? Getting regular exercise. Ask your health care provider to suggest some activities that are safe for you. ? Eating a heart-healthy diet. A registered dietitian can help you to learn healthy eating options. ? Maintaining a healthy weight. ? Managing diabetes, if necessary. ? Reducing stress, such as with yoga or relaxation techniques. General instructions ??? Avoid any activities that bring on chest pain. ??? If heartburn is the cause for your chest pain, raise (elevate) the head of your bed about 6 inches (15 cm) by putting blocks under the legs. Sleeping with more pillows does not effectively relieve heartburn because it only changes the position of your head. ??? Keep all follow-up visits as told by your health care provider. This is important. This includes any further testing if your chest pain does not go away. Contact a health care provider if: ??? Your chest pain does not go away. ??? You have a rash with blisters on your chest. ??? You have a fever. ??? You have chills. Get help right away if: ??? Your chest pain is worse. ??? You have a cough that gets worse, or you cough up blood. ??? You have severe pain in your abdomen. ??? You have severe weakness. ??? You faint. ??? You have sudden, unexplained chest discomfort. ??? You have sudden, unexplained discomfort in your arms, back, neck, or jaw. ??? You have shortness of breath at any time. ??? You suddenly start to sweat, or your skin gets clammy. ??? You feel nauseous or you vomit. ??? You suddenly feel light-headed or dizzy. ??? Your heart begins to beat quickly, or it feels like it is skipping beats. These symptoms may represent a serious problem that is an emergency. Do not wait to see if the symptoms will go away. Get medical help right away. Call your local emergency services (911 in the [place] Do not drive yourself to the hospital. This information is not intended to replace advice given to you by your health care provider. Make sure you discuss any questions you have with your health care provider. Document Released: 08/22/2006 Document Revised: 08/06/2017 Document Reviewed: 08/06/2017 [employer] Patient Education ? 2017 [employer] Allergies: Percocet 5/325; sulfADIAZINE; lisinopril Medication Information: Prescription Display acetaminophen-hydrocodone ([place] 7.5 mg-325 mg oral tablet) 1 Tab, Oral, Tab, Q4H, PRN as needed for pain, X 2 Day(s), # 12 Tab, 0 Refill(s) Laboratory or Other Results This Visit (last charted value for your 01/01/2019 visit) Hematology 01/01/19 11:38:00 WBC: 12.0 K/uL -- Normal range between ( 4.0 and 10.0 ) RBC: 3.80 Million/uL -- Normal range between ( 3.93 and 5.22 ) Hct: 34.4 % -- Normal range between ( 34.1 and 44.9 ) Hgb: 12.3 Gram/dL -- Normal range between ( 11.2 and 15.7 ) Platelet Count: 480 K/uL -- Normal range between ( 163 and 369 ) MCH: 32.4 pg -- Normal range between ( 25.6 and 32.2 ) MCHC: 35.8 Gram/dL -- Normal range between ( 32.2 and 36.5 ) MCV: 90.5 fL -- Normal range between ( 79.0 and 94.8 ) Slide Review: No RDW: 12.9 % -- Normal range between ( 11.6 and 14.4 ) MPV: 9.1 fL -- Normal range between ( 9.4 and 12.4 ) General Chemistry 01/01/19 11:38:00 Creatinine Level: 0.68 mg/dL -- Normal range between ( 0.55 and 1.02 ) Sodium Level: 138 mmol/L -- Normal range between ( 136 and 145 ) Potassium Level: 3.3 mmol/L -- Normal range between ( 3.5 and 5.1 ) Chloride Level: 99 mmol/L -- Normal range between ( 98 and 107 ) Carbon Dioxide Level: 30 mmol/L -- Normal range between ( 21 and 32 ) Anion Gap: 12 -- Normal range between ( 9 and 20 ) Bun/Creatinine: 19.118 Calcium Level: 9.6 mg/dL -- Normal range between ( 8.6 and 10.1 ) eGFR : 114 mL/min/1.73m2 eGFR NonAfrican: 94 mL/min/1.73m2 Glucose Level: 126 mg/dL -- Normal range between ( 74 and 106 ) Blood Urea Nitrogen: 13 mg/dL -- Normal range between ( 7 and 18 ) Cardiac Specific Markers 01/01/19 11:38:00 Troponin I Ultra: <0.017 ng/mL -- Normal range between ( 0.000 and 0.056 ) Diagnostic Radiology 01/01/19 11:56:38 CR Chest 1 Vw Portable: CR Chest 1 Vw Portable Medication Comment: Procedures: Laboratory Orders Name Status BMP Completed CBCND Completed TROPIULT Completed Radiology Orders Name Status CR Chest 1 Vw Portable Completed Cardiology Orders Name Status ECG Completed This statement is to verify that DONYA MALDONADO [facility] at [facility] on ,01/01/2019 14:13:41. This is not a work excuse, if a work excuse was needed it will be in addition to this statement as a separate form. IMPORTANT: The examination and treatment you have received in the Emergency Department has been done to provide an appropriate evaluation and stabilizing treatment on an emergency basis only. Given the limited resources, it is not meant to be a substitute for complete medical care. The follow-up doctor you named will receive a copy of your records and all test reports. IT IS IMPORTANT THAT YOU SCHEDULE A FOLLOW-UP APPOINTMENT AND ARE RE-EVALUATED. You should report any new complaints, symptoms, or remaining problems at that time. IT IS IMPOSSIBLE FOR THE EMERGENCY DEPARTMENT TO RECOGNIZE AND TREAT ALL ELEMENTS OF INJURY OR ILLNESS IN A SINGLE VISIT. If you have been referred to a specialist physician, it means that we believe you may have a condition that requires the expertise of a specialist. KEEP IN MIND THAT THE SPECIALIST HAS HIS/HER OWN OFFICE POLICIES WHICH MAY REQUIRE PROPER INSURANCE OR PAYMENT UP FRONT BEFORE THE SPECIALIST WILL SEE YOU. It is your responsibility to call the specialist physician to make an appointment. We do not have the ability to identify specialists/physicians that work with specific insurance companies. Please be advised that all financial charges or billing practices are determined by that practice, not the hospital. If your insurance company requires that you see a specialist from their approved list, it is your responsibility to contact your insurance company to make those arrangements. It is also your responsibility to follow any other requirements of your insurance company necessary to obtain coverage for claims submitted. If you had special tests, such as EKG???s or X-rays, the interpretation of your tests given to you by the Emergency Dept. Physician is a preliminary report. Some fractures and illnesses fail to show up on preliminary tests. We will review them again within 24-48 hours. We will call you if there are any new suggestions. If your symptoms continue notify your physician. After you leave, you should follow the instructions below. In all events, you may obtain a copy of your Emergency Department visit from Medical Records. Please call to be directed to this department. We will bill your insurance; however, you are responsible today for any co-pay amounts. You will receive a separate bill for any services you may have received including: emergency, radiology, or pathology physicians. Please be sure we have an accurate contact phone number and address, should we need to call you for any reason. CIGARETTE SMOKING: The facts are clear; cigarette smoking will shorten your life. Smoking can cause many illnesses along the way. As a healthcare provider, [facility] recommends that you stop smoking. Assistance with quitting is available by contacting 4-713-FDRI-NOW. This is a free resource providing counseling, support, and referral. Or you may contact your personal physician. As part of your treatment plan, your physician may have prescribed a limited course of a controlled substance. This medication may be given to help people with moderate or severe pain or for other medical conditions, but there are risks involved with treatment. Common side effects may include nausea, constipation, drowsiness, sweating, itching, dry mouth, and rash. More serious side effects may include cognitive and motor impairment, like problems with thinking, concentrating, alertness, and movement (e.g. slowed reflexes), and driving and operating heavy machinery can be dangerous. It is important for you to talk to your physician if you have these side effects or questions. These controlled substances can produce physical dependence and be habit-forming if taken for an extended period of time, which means that the body has gotten used to them and may experience withdrawal symptoms if they are abruptly stopped. Withdrawal symptoms can include runny nose, sweating, goose bumps, diarrhea, abdominal cramping, rapid heartbeat, difficulty sleeping, and nervousness. The home medications listed are only as accurate as the information you provided. Please continue taking all of your medications prescribed by your Primary Care Provider unless specifically told to change or discontinue the medication. Please direct any questions regarding your home medications to your Primary Care Provider. YOU ARE THE MOST IMPORTANT FACTOR IN YOUR RECOVERY. ?? Follow your instructions carefully ?? Take your medicines as prescribed ?? Most important, see a provider as discussed. If you do not have a provider, we can provide a list of clinics Confidential This message and accompanying documents are covered by Electronic Communications Privacy Act 18 U.S.C. ???Sections 2122-5247,?? and contain information intended for the specified individual(s) only. This information is confidential. If you are not the intended recipient or an agent responsible for delivering it to the intended recipient, you are hereby notified that you have received the document in error and that any review, dissemination, copying, or the taking of any action based on the contents of this information is strictly prohibited. If you have received this communication in error, please notify us immediately by email, and delete the original message. 4 WAYS TO GET AHEAD OF SEPSIS SEPSIS is a MEDICAL EMERGENCY. Time matters! Infections put you and your family at risk for a life-threatening condition called sepsis. Sepsis is the body???s extreme response to an infection. It is life-threatening, and without timely treatment, sepsis can rapidly lead to tissue damage, organ failure, and . Sepsis happens when an infection you already have???in your skin, lungs, urinary tract or somewhere else???triggers a chain reaction throughout your body. 1 PREVENT INFECTIONS Take good care of chronic conditions. Talk to your doctor about getting the recommended vaccines. 2 PRACTICE GOOD HYGIENE Wash your hands frequently. Keep cuts or open sores clean and covered until they are healed. 3 KNOW THE SYMPTOMS Confusion or disorientation Shortness of breath High heart rate Fever, shivering, or feeling very cold Extreme pain or discomfort Clammy or sweaty skin 4 ACT FAST Get medical care IMMEDIATELY if you suspect sepsis or if you have an infection that???s not getting better or is getting worse. To learn more about sepsis and how to prevent infections, visit www.cdc.gov/sepsis. STROKE is an EMERGENCY Every [employer] ACT F.A.S.T! FACE ?? Facial droop ?? Uneven smile ARM ?? Arm numbness ?? Arm weakness SPEECH ?? Slurred speech ?? Difficulty speaking or understanding TIME ?? Call 911 and get to the hospital immediately Have the ambulance go to the nearest stroke center. STROKE Risk Factors High blood pressure High cholesterol Heart Disease Diabetes Smoking Heavy alcohol use Physical inactivity and obesity Atrial Fibrillation (irregular heartbeat) Family history of stroke Reminder: Be sure to sign up for the [employer] patient portal, which gives you 18/06 access to your medical information ??? including these discharge instructions ??? using your computer, smartphone, or tablet. Just go to [employer] to get started. Questions? Call . Acknowledgment I hereby acknowledge receipt of these instructions and information above. I understand that I have received Emergency Treatment only which is not a substitute for complete medical care and acknowledge that all of my medical problems may not be known, identified, or treated prior to my release. I UNDERSTAND THE NEED TO ARRANGE FOLLOW-UP CARE WITH THE PHYSICIAN INDICATED. I UNDERSTAND THAT I SHOULD CONTACT MY PHYSICIAN IMMEDIATELY OR RETURN TO THE EMERGENCY DEPARTMENT IF MY CONDITION WORSENS, FAILS TO IMPROVE, OR NEW SYMPTOMS APPEAR. Vital Signs B/P PULSE RESP. RATE TEMPERATURE PULSE OX Signature of Emergency Provider Date / Time Signature of Emergency Nurse Date / Time Acknowledgment I hereby acknowledge receipt of these instructions and information above. I understand that I have received Emergency Treatment only which is not a substitute for complete medical care and acknowledge that all of my medical problems may not be known, identified, or treated prior to my release. I UNDERSTAND THE NEED TO ARRANGE FOLLOW-UP CARE WITH THE PHYSICIAN INDICATED. I UNDERSTAND THAT I SHOULD CONTACT MY PHYSICIAN IMMEDIATELY OR RETURN TO THE EMERGENCY DEPARTMENT IF MY CONDITION WORSENS, FAILS TO IMPROVE, OR NEW SYMPTOMS APPEAR. Signature of Patient / Responsible Person Date / Time Please provide a telephone number where you can be reached. The best time to call is between: It is permissible to leave a message if no answer: Yes____ No____ Nurse Providing Instructions: Emergency Physician: documented in this encounter Plan of Treatment Not on file documented as of this encounter Visit Diagnoses Not on filedocumented in this encounter
--- OUTSIDE RECORDS SUMMARY | 2025-06-09 12:00 | XMS_ITS | Encounter Summary ---
Author Organization [employer] ([place], [place], [place], [place]) Address [address] [place] [address] Care Team Providers Care Health Assistant Name Role Phone Unavailable Primary Care Provider Unavailabl e Encounter Details Date Type Department Care Team (Late st Contact Info) Description 05/22/2019 Transcribed Document [facility] [place] [address] ProviderElena MD [address] [place] [id number] Social History Tobacco Use Types Packs/Day Years Used Date Smoking Tobacco: Never Assessed Comments Unknown Sex and Gender Information Value Date Recorded Sex Assigned at Not on file Legal Sex Female 5:06 PM CDT Gender Identity Not on file Sexual Orientation Not on file documented as of this encounter Miscellaneous Notes * Cerner Conversion Note - Historical ProviderMD - 05/22/2019 1:10 PM CDT ED Assessment Entered On: 05/22/2019 13:50 EDT Performed On: 05/22/2019 13:50 EDT by Namrata Javier Rn ED Quick Look Assessment Level of Consciousness : Alert, Awake Affect/Behavior : Appropriate, Calm, Cooperative Orientation : Oriented x 4 Skin Temperature : Warm Skin Description : Dry Namrata Javier Rn - 05/22/2019 13:50 EDT ED General-Functional Assess Information Obtained From : Patient Preferred Communication Mode : Verbal Communication Barrier : None Primary Language : Kosovan Any Spiritual/Cultural Needs or Requests : No Currently in Unsafe Situation : No Namrata Javier Rn - 05/22/2019 13:50 EDT Social Habits Smoking Status : 5-9 cigarettes (between 1/4 to 1/2 pack)/day in last 30 days Smokeless Tobacco Status : Refused tobacco status screen Desires Tobacco Cessation Medication : No Reason for No Tobacco Cessation Medication : ED/procedural patient only Desires Tobacco Cessation Calc : 1 Namrata Javier Rn - 05/22/2019 13:50 EDT Social History (As Of: 05/22/2019 13:50:59 EDT) Tobacco: Smoking Status Current every day smoker. Five or more cigarettes per day Smoking Frequency Within Last 30 Days. Use in Last 12 Months: Cigarettes. Packs/Tins Daily: 0.5. Second Hand Smoke Exposure: Yes. (Last Updated: 06/08/2017 00:36:58 EDT by Marce Calzada, RN) Alcohol: Use in Last 12 Months: No. (Last Updated: 08/18/2014 19:11:29 EDT by JAYANT BUI, BRAD) Substance Abuse: Drug Use Hx: No. Use in Last 12 Months: No. (Last Updated: 12/19/2015 01:02:37 EST by NICOLE LAMA, BRAD) Nutrition/Health: Regular (Last Updated: 01/01/2019 12:19:40 EST by JANI CATALAN, BRAD) Home/Environment: Lives with Children. (Last Updated: 10/15/2018 02:51:16 EST by Ben Hernandez, Brad) Employment/School: Employed, Work/School description: [employer]. (Last Updated: 10/15/2018 02:51:38 EST by Ben Hernandez, Rn) Gastrointestinal ED Gastrointestinal Assessment Comment : Left flank pain. Namrata Javier Rn - 05/22/2019 13:50 EDT documented in this encounter Plan of Treatment Not on file documented as of this encounter Visit Diagnoses Not on filedocumented in this encounter
--- OUTSIDE RECORDS SUMMARY | 2025-06-09 12:00 | XMS_ITS | Encounter Summary ---
Author Organization [employer] ([place], [place], [place], [place]) Address [address] [place] [address] Care Team Providers Care Document Control Associate Name Role Phone Unavailable Primary Care Provider Unavailabl e Encounter Details Date Type Department Care Team (Late st Contact Info) Description 01/01/2019 Transcribed Document [facility] [place] [address] ProviderElena MD [address] [place] [id number] Social History Tobacco Use Types Packs/Day Years Used Date Smoking Tobacco: Never Assessed Comments Unknown Sex and Gender Information Value Date Recorded Sex Assigned at Not on file Legal Sex Female 5:06 PM CDT Gender Identity Not on file Sexual Orientation Not on file documented as of this encounter Miscellaneous Notes * Cerner Conversion Note - Historical ProviderMD - 01/01/2019 1:42 PM MARK UP DESIGNER ED Discharge Entered On: 01/01/2019 14:13 EST Performed On: 01/01/2019 13:42 EST by MARYBEL MORAN RN Discharge Process Patient Disposition : Discharge Personal Belongings With Patient : Yes Patient Education Completed : Yes Teaching Evaluation : Verbalizes understanding IV Discontinued : Not applicable Nursing Documentation Completed : Yes MARYBEL MORAN RN - 01/01/2019 14:12 EST ED Discharge Discharge To : Home with ambulatory/outpatient follow-up Mode Of Departure : Ambulatory Discharge Instructions Reviewed With, Opportunity For Questions Given : Patient Prescriptions Given to Patient : Yes Number of Prescriptions Given : 1 MARYBEL MORAN RN - 01/01/2019 14:12 EST Electronically signed by Ivana [facility] Conversion Engine Lathe Tender Cerner at 03/12/2023 4:13 PM CDT documented in this encounter Plan of Treatment Not on file documented as of this encounter Visit Diagnoses Not on filedocumented in this encounter
--- OUTSIDE RECORDS SUMMARY | 2025-06-09 12:00 | XMS_ITS | Encounter Summary ---
Author Organization [employer] ([place], [place], [place], [place]) Address [address] [place] [address] Care Team Providers Care Vendor Management Associate Name Role Phone Unavailable Primary Care Provider Unavailabl e Encounter Details Date Type Department Care Team (Late st Contact Info) Description 01/01/2019 Transcribed Document [facility] [place] [facility] [address] ProviderElena MD [address] [place] [id number] Social History Tobacco Use Types Packs/Day Years Used Date Smoking Tobacco: Never Assessed Comments Unknown Sex and Gender Information Value Date Recorded Sex Assigned at Not on file Legal Sex Female 5:06 PM CDT Gender Identity Not on file Sexual Orientation Not on file documented as of this encounter Miscellaneous Notes * Cerner Conversion Note - Historical ProviderMD - 01/01/2019 1:05 PM ASSET RECOVERY SPECIALIST Electronically signed by Ivana [facility] Conversion Tube Fitter Cerner at 03/12/2023 4:29 PM CDT documented in this encounter Plan of Treatment Not on file documented as of this encounter Visit Diagnoses Not on filedocumented in this encounter
--- OUTSIDE RECORDS SUMMARY | 2025-06-09 12:00 | XMS_ITS | Encounter Summary ---
Author Organization [facility] Address [address] [place] [address] Care Team Providers Care Printed Circuit Photographer Name Role Phone Karime Pinto APRN, DNP Primary Care Provider + Reason for Visit * Reason Comments Med Refill Encounter Details Date Type Department Care Team (Late st Contact Info) Description 05/10/2021 Refill Lorna Bee [address] [phone] Karime Pinto APRN, DNP [address] [place] [phone] Social History Tobacco Use Types Packs/Day Years Used Date Smoking Tobacco: Every Day Comments Unknown Sex and Gender Information Value Date Recorded Sex Assigned at Not on file Legal Sex Female 8:21 PM EDT Gender Identity Not on file Sexual Orientation Not on file COVID-19 Exposure Response Date Recorded In the last month, have you been in contact with someone who was confirmed or suspected to have Coronavirus / COVID-19? No / Unsure 05/11/2021 3:14 PM EDT documented as of this encounter Miscellaneous Notes * Telephone Encounter - Najma Vang - 05/19/2021 4:25 PM EDT Patient has moved out of the area and will need to find a local provider or return to our clinic tosee provider for medication refills. Patient has been previously advised of this situation. documented in this encounter Plan of Treatment Not on file documented as of this encounter Visit Diagnoses Not on filedocumented in this encounter Care Teams Printed Circuit Photographer Relationship Specialty Start Date End Date Karime Pinto APRN, [facility] [address] [place] [phone] PCP - General 04/08/21 08/23/21 documented as of this encounter
--- OUTSIDE RECORDS SUMMARY | 2025-06-09 12:00 | XMS_ITS | Encounter Summary ---
Author Organization [employer] ([place], [place], [place], [place]) Address [address] [place] [address] Care Team Providers Care Parcel Post Carrier Name Role Phone Unavailable Primary Care Provider Unavailabl e Encounter Details Date Type Department Care Team (Late st Contact Info) Description 01/01/2019 Transcribed Document [facility] [place] [facility] [place] [address] ProviderElena MD [address] [place] [phone] Social History Tobacco Use Types Packs/Day Years Used Date Smoking Tobacco: Never Assessed Comments Unknown Sex and Gender Information Value Date Recorded Sex Assigned at Not on file Legal Sex Female 5:06 PM CDT Gender Identity Not on file Sexual Orientation Not on file documented as of this encounter Miscellaneous Notes * Cerner Conversion Note - Historical ProviderMD - 01/01/2019 11:20 AM LAUNDRY HOUSEKEEPER ED Triage Entered On: 01/01/2019 11:29 EST Performed On: 01/01/2019 11:24 EST by MARILYN GARCIA, DEICER REPAIRER ELECTRIC Triage Across the Room Triage Date/Time : 01/01/2019 11:24 EST Chief Complaint : here with c/o chest pain starting just prior to arrival. c/o nausea. no vomiting. also c/o shortness of air. c/ tightness in chest. also c/o headache since this morning. MARILYN GARCIA, RN - 01/01/2019 11:24 EST DCP GENERIC CODE Tracking Acuity : 2 - Emergent Tracking Group : [facility] ED MARILYN Maurice RN - 01/01/2019 11:24 EST Mode of Arrival : Ambulatory Transported to ED by : Private vehicle To Room Via : Wheelchair Accompanied By : Friend ED Vital Signs : Document Height & Weight : Document ED Allergies : Document ED Reason for Visit : Document Tetanus Immunization : Greater than 5 years MARILYN GARCIA RN - 01/01/2019 11:24 EST Infectious Disease History Infectious Disease History : Chicken pox/Shingles, Mumps, Other: brenden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 Within Last 30 Days : No Contact With Traveler to Advisory Region : No Tuberculosis Symptoms : None MARILYN GARCIA RN - 01/01/2019 11:24 EST Vital Signs ED Temperature Source : Oral Temperature Mode : Fahrenheit Temperature, Fahrenheit : 97.8 Deg F ED Pain : Yes Clinical Temperature, C : 36.6 Deg C Oxygen Therapy Mode : Room air Peripheral Pulse Rate : 78 bpm Respiratory Rate : 20 Breaths/Min Blood Pressure Location : Arm, right upper Blood Pressure Source : Non-Invasive BP Device Systolic Blood Pressure : 138 mmHg Diastolic Blood Pressure : 78 mmHg Oxygen Saturation : 100 % MARILYN GARCIA RN - 01/01/2019 11:24 EST Allergy (As Of: 01/01/2019 11:29:15 EST) Allergies (Active) lisinopril Estimated Onset Date: Unspecified ; Created By: CARINA MELCHOR RN; Reaction Status: Active ; Category: Drug ; Substance: lisinopril ; Type: Allergy ; Updated By: CARNIA MELCHOR RN; Reviewed Date: 01/01/2019 11:26 EST Percocet 5/325 Estimated Onset Date: Unspecified ; Created By: JOSIAH ONEILL RN; Reaction Status: Active ; Category: Drug ; Substance: Percocet 5/325 ; Type: Allergy ; Updated By: JOSIAH ONEILL RN; Reviewed Date: 01/01/2019 11:26 EST sulfADIAZINE Estimated Onset Date: Unspecified ; Reactions: C/O: a swelling, Redness, C/O: a swelling~Redness ; Created By: CONTRIBUTOR_SYSTEM HIST_CERSAJI; Reaction Status: Active ; Category: Drug ; Substance: sulfADIAZINE ; Type: Allergy ; Updated By: CONTRIBUTOR_SYSTEM HIST_CERSAJI; Reviewed Date: 01/01/2019 11:26 EST Diagnosis Control ED (As Of: 01/01/2019 11:29:15 EST) Problems(Active) 2 c-sections ( : ) Name of Problem: 2 c-sections ; Recorder: GABE AGUILERA RN; Confirmation: Confirmed ; Classification: Medical ; Contributor System: PowerChart ; Last Updated: 10/24/2014 7:51 EST ; Life Cycle Date: 10/24/2014 ; Life Cycle Status: Active carpal tunnel left arm ( : ) Name of Problem: carpal tunnel left arm ; Recorder: GABE AGUILERA RN; Confirmation: Confirmed ; Classification: Medical ; Contributor System: PowerChart ; Last Updated: 10/24/2014 7:51 EST ; Life Cycle Date: 10/24/2014 ; Life Cycle Status: Active Ectopic (SNOMED CT :73151191 ) Name of Problem: Ectopic ; Recorder: MONI YUNG MD-EMR; Confirmation: Confirmed ; Classification: Medical ; Code: [id number] ; Contributor System: PowerChart ; Last Updated: 10/24/2014 8:05 EST ; Life Cycle Date: 10/24/2014 ; Life Cycle Status: Active ; Responsible Provider: MONI YUNG MD-EMR; Vocabulary: SNOMED CT HTN (hypertension) (SNOMED CT :5186072967 ) Name of Problem: HTN (hypertension) ; Recorder: CARINA MELCHOR RN; Confirmation: Confirmed ; Classification: Medical ; Code: [id number] ; Contributor System: PowerChart ; Last Updated: 09/29/2014 14:18 EST ; Life Cycle Date: 09/29/2014 ; Life Cycle Status: Active ; Vocabulary: SNOMED CT Hypoglycemia (SNOMED CT :915609001 ) Name of Problem: Hypoglycemia ; Recorder: Ben Hernandez Rn; Confirmation: Confirmed ; Classification: Medical ; Code: [id number] ; Contributor System: PowerChart ; Last Updated: 10/15/2018 1:50 EST ; Life Cycle Date: 10/15/2018 ; Life Cycle Status: Active ; Vocabulary: SNOMED CT Migraine (SNOMED CT :58027215 ) Name of Problem: Migraine ; Recorder: NICOLE LAMA RN; Confirmation: Confirmed ; Classification: Medical ; Code: 15034702 ; Contributor System: PowerChart ; Last Updated: 12/19/2015 0:55 EST ; Life Cycle Date: 12/19/2015 ; Life Cycle Status: Active ; Vocabulary: SNOMED CT Diagnoses(Active) Chest pain Date: 01/01/2019 ; Diagnosis Type: Reason For Visit ; Confirmation: Complaint of ; Clinical Dx: Chest pain ; Classification: Medical ; Clinical Service: Emergency medicine ; Code: PNED ; Probability: 0 ; Diagnosis Code: [id number] Headache Date: 01/01/2019 ; Diagnosis Type: Reason For Visit ; Confirmation: Complaint of ; Clinical Dx: Headache ; Classification: Medical ; Clinical Service: Emergency medicine ; Code: PNED ; Probability: 0 ; Diagnosis Code: [id number] ED Height and Weight Height Source : Stated Height Entry Format : [place] Height, Feet : 4 ft(Converted to: 122 cm, 48 Inch) Height, Inches : 11 Inch(Converted to: 0 ft 11 Inch, 27.94 cm) Clinical Height : 149.86 cm Weight Source, ED : Critical estimated dosing weight Weight Entry Format : [place] Weight, Pounds : 145 lb Clinical Dosing Weight : 65.91 kg Body Surface Area (BSA) : 1.61 m2 Body Mass Index : 29.3 kg/m2 (HI) [place] Body Weight (IBW) : 42.87 kg MARILYN GARCIA RN - 01/01/2019 11:24 EST Pain Assessment Pain Assessment : Initial assessment Pain Scl Goal Comment : 0 Pain Scale Used : 0-10 Scale Location : Chest MARILYN GARCIA RN - 01/01/2019 11:24 EST Pain Scale Intensity : 6 MARILYN GARCIA RN - 01/01/2019 11:24 EST Image 4 - Images currently included in the form version of this document have not been included in the text rendition version of the form. documented in this encounter Plan of Treatment Not on file documented as of this encounter Visit Diagnoses Not on filedocumented in this encounter
--- OUTSIDE RECORDS SUMMARY | 2025-06-09 12:00 | XMS_ITS | Encounter Summary ---
Author Organization [employer] ([place], [place], [place], [place]) Address [address] [place] [address] Care Team Providers Care District Operations Manager Name Role Phone Unavailable Primary Care Provider Unavailabl e Encounter Details Date Type Department Care Team (Late st Contact Info) Description 05/22/2019 Transcribed Document [facility] [place] [facility] [place] [address] ProviderElena MD [address] [place] [id number] Social History Tobacco Use Types Packs/Day Years Used Date Smoking Tobacco: Never Assessed Comments Unknown Sex and Gender Information Value Date Recorded Sex Assigned at Not on file Legal Sex Female 5:06 PM CDT Gender Identity Not on file Sexual Orientation Not on file documented as of this encounter Miscellaneous Notes * Cerner Conversion Note - Elena ProviderMD - 05/22/2019 3:37 PM CDT ED Discharge Entered On: 05/22/2019 15:37 EDT Performed On: 05/22/2019 15:37 EDT by Laura Bar Rn Discharge Process Patient Disposition : Discharge Personal Belongings With Patient : Yes Patient Education Completed : Yes Teaching Evaluation : Verbalizes understanding IV Discontinued : Not applicable Nursing Documentation Completed : Yes Laura Bar Rn - 05/22/2019 15:37 EDT ED Discharge Discharge To : Home with ambulatory/outpatient follow-up Mode Of Departure : Private vehicle Accompanied By : Unaccompanied Discharge Instructions Reviewed With, Opportunity For Questions Given : Patient Prescriptions Given to Patient : Yes Number of Prescriptions Given : 1 Laura Bar Rn - 05/22/2019 15:37 EDT Electronically signed by [facility]rand [facility] Conversion Account Technician Cerner at 03/12/2023 4:22 PM CDT documented in this encounter Plan of Treatment Not on file documented as of this encounter Visit Diagnoses Not on filedocumented in this encounter
--- OUTSIDE RECORDS SUMMARY | 2025-06-09 12:00 | XMS_ITS | Encounter Summary ---
Author Organization [employer] ([place], [place], [place], [place]) Address [address] [place] [address] Care Team Providers Care Wellness Rn Name Role Phone Unavailable Primary Care Provider Unavailabl e Encounter Details Date Type Department Care Team (Late st Contact Info) Description 01/01/2019 Transcribed Document [facility] [place] [facility] [place] [address] ProviderElena MD [address] [place] [id number] Social History Tobacco Use Types Packs/Day Years Used Date Smoking Tobacco: Never Assessed Comments Unknown Sex and Gender Information Value Date Recorded Sex Assigned at Not on file Legal Sex Female 5:06 PM CDT Gender Identity Not on file Sexual Orientation Not on file documented as of this encounter Miscellaneous Notes * Cerner Conversion Note - Historical ProviderMD - 01/01/2019 6:25 PM CLINICAL DATA MANAGEMENT DIRECTOR CR Chest 1 Vw Portable Ordered: 01/01/2019 Modified Reason for Exam: pain 01/01/2019 13:12 01/01/2019 18:25 (HILARY ROBERTO PA-C) Reviewed by Provider, No further action required x1 Electronically signed by Ivana [facility] Conversion Sports Equipment Repairer Cerner at 03/12/2023 4:09 PM CDT documented in this encounter Plan of Treatment Not on file documented as of this encounter Visit Diagnoses Not on filedocumented in this encounter
--- OUTSIDE RECORDS SUMMARY | 2025-06-09 12:00 | XMS_ITS | Encounter Summary ---
Author Organization [employer] ([place], [place], [place], [place]) Address [address] [place] [address] Care Team Providers Care Muck Farmer Name Role Phone Unavailable Primary Care Provider Unavailabl e Encounter Details Date Type Department Care Team (Late st Contact Info) Description 05/22/2019 Transcribed Document [facility] [place] [facility] [place] [address] ProviderElena MD [address] [place] [phone] Social History Tobacco Use Types Packs/Day Years Used Date Smoking Tobacco: Never Assessed Comments Unknown Sex and Gender Information Value Date Recorded Sex Assigned at Not on file Legal Sex Female 5:06 PM CDT Gender Identity Not on file Sexual Orientation Not on file documented as of this encounter Miscellaneous Notes * Cerner Conversion Note - Historical ProviderMD - 05/22/2019 1:17 PM CDT Patient: DONYA MALDONADO Age: 43 years Sex: Female : 1975 Associated Diagnoses: Flank pain Author: NAE GREEN MD Basic Information Additional information: Chief Complaint from Nursing Triage Note : Chief Complaint 05/22/2019 13:13 EDT Chief Complaint c/o left flank pain and cloudy urine for 2-3 days . History of Present Illness The patient presents with flank pain. The onset was 3 days ago. The course/duration of symptoms is constant. The character of symptoms is dull. The degree at onset was moderate. The Location of pain at onset was left and flank. The degree at present is moderate. The Location of pain at present is left and flank. Radiating pain: none. The exacerbating factor is none. The relieving factor is none. Therapy today: none. Risk factors consist of none. Associated symptoms: nausea. Review of Systems Constitutional symptoms: Negative except [...] Medical/ Family/ Social History Surgical history: section ([id number]). LEEP ([id number]).. Family history: No family history items have been selected or recorded.. Social history: Social & Psychosocial Habits Alcohol 08/18/2014 Alcohol Use in Last Twelve Months No Employment/School 10/15/2018 Status: Employed Description: [employer] Home/Environment 10/15/2018 Lives with: Children Nutrition/Health 01/01/2019 Type of diet: Regular Substance Abuse 12/19/2015 Recreational Drug Use History No Recreational Drug Use Last 12 Months No Tobacco 06/08/2017 Smoking Status Current every day smoker Smoking Frequency Within Last 30 Days Five or more cigarettes p Tobacco Use Within Last Twelve Months Cigarettes Packs/Tins Daily 0.5 Second Hand Smoke Exposure Yes . Physical Examination Vital Signs Vital Signs/Vital Measures 05/22/2019 13:13 EDT Systolic Blood Pressure 138 mmHg Diastolic Blood Pressure 96 mmHg HI Temperature Source Oral Temperature Mode Fahrenheit Temperature, Fahrenheit 97.6 Deg F Clinical Temperature, C 36.4 Deg C Peripheral Pulse Rate 90 bpm Respiratory Rate 20 Breaths/Min Oxygen Saturation 96 % Oxygen Therapy Mode Room air . Measurements 05/22/2019 13:13 EDT Height Source Stated Height Entry Format [place] Height/Length, MALAYSIAN (ft) 4 ft Height/Length MALAYSIAN 11 Inch CLINICALHEIGHT 149.86 cm [place] Body Weight 42.87 kg Weight Source, ED Critical estimated dosing weight Weight Entry Format [place] Weight [place]ian lb 150 lb CLINICALWEIGHT 68.18 kg Body Surface Area (BSA) 1.63 m2 Body Mass Index 30.4 kg/m2 HI . Oxygen Saturation 05/22/2019 13:13 EDT Oxygen Saturation 96 % . General: Alert, no acute distress. Skin: Warm, dry, no rash, normal for ethnicity. Head: Normocephalic, atraumatic. Neck: Supple. Eye: Pupils are equal, round and reactive to light, extraocular movements are intact, normal conjunctiva. Cardiovascular: Regular rate and rhythm, No murmur. Respiratory: Lungs are clear to auscultation, respirations are non-labored, breath sounds are equal, Symmetrical chest wall expansion. Medical Decision Making Differential Diagnosis: Abdominal pain, ureteral stone, urinary tract infection, pyelonephritis. Results review: All Results 05/22/2019 14:[address] Abdomen Pelvis WO REPORT (Unauth) 05/22/2019 13:50 EDT ED Nursing Record 05/22/2019 13:17 EDT ED Physician Notes Flank pain (In Progress) 05/22/2019 13:13 EDT ED Nursing Record 05/22/2019 13:11 EDT Consent Forms Consent Forms 05/22/2019 13:50 EDT Level of Consciousness Alert, Awake Orientation Oriented x 4 Affect/Behavior Appropriate, Calm, Cooperative Gastrointestinal Assessment Comment Left flank pain. Skin Description Dry Skin Temperature Warm Communication Barrier None Primary Language Maur[place]ian Information Obtained From Patient Smoking Status 5-9 cigarettes (between 1/4 to 1/2 pack)/day in last 30 days Desires Tobacco Cessation Medication No Smokeless Tobacco Status Refused tobacco status screen Any Spiritual/Cultural Needs or Requests No Currently in Unsafe Situation No 05/22/2019 13:49 EDT ABCs Fall Injury Risk Identification None JOHNSON Hx Falls Immediate/Within 3 Months No Johnson Secondary Diagnosis No JOHNSON Ambulatory Aid None Johnson IV Therapy or IV Access No Johnson Gait/Transferring Normal, bedrest, immobile JOHNSON Mental Status Oriented to own ability Johnson Fall Risk Score 0 Johnson Fall Scale Risk Level 0-24 Low Risk [place] Fall Interventions Adequate lighting, Bed in low position, Call device within reach, Personal items within reach 05/22/2019 13:22 EDT Nurse Collect Order Detail 3.00 05/22/2019 13:22 EDT Nurse Collect Order Detail 3.00 05/22/2019 13:19 EDT Urine Type. U CleanCatch Urine Color Light Yellow Urine Appearance Clear Urine Specific [place] 1.015 Urine pH Dipstick 8.5 HI Urine Leukocyte Esterase Negative Urine Nitrite Negative Urine Protein Dipstick 30 Urine Glucose Dipstick Negative Urine Ketones Dipstick Negative Urine Urobilinogen Dipstick 0.2 EU/dL Urine Bilirubin Dipstick Negative Urine Blood Dipstick Trace - Intact Ur WBC 0-2 /HPF Ur Amorph Trace Ur Squamous Epithelial Cells 0-2 /HPF HCG Urine Qualitative Negative 05/22/2019 13:16 EDT Estimated Creatinine Clearance 72.75 mL/Min D-BOOST Polypharmacy Yes 05/22/2019 13:13 EDT Nurse Collect Order Detail 3.00 05/22/2019 13:13 EDT Nurse Collect Order Detail 3.00 05/22/2019 13:13 EDT Systolic Blood Pressure 138 mmHg Diastolic Blood Pressure 96 mmHg HI Temperature Source Oral Temperature Mode Fahrenheit Temperature, Fahrenheit 97.6 Deg F Clinical Temperature, C 36.4 Deg C Peripheral Pulse Rate 90 bpm Respiratory Rate 20 Breaths/Min Oxygen Saturation 96 % Oxygen Therapy Mode Room air Height Source Stated Height Entry Format [place] Height/Length, MALAYSIAN (ft) 4 ft Height/Length MALAYSIAN 11 Inch CLINICALHEIGHT 149.86 cm [place] Body Weight 42.87 kg Weight Source, ED Critical estimated dosing weight Weight Entry Format [place] Weight [place]ian lb 150 lb CLINICALWEIGHT 68.18 kg Body Surface Area (BSA) 1.63 m2 Body Mass Index 30.4 kg/m2 HI Last Menstrual Period 03/01/2019 Tuberculosis Symptoms None Infectious Disease History Chicken pox/Shingles, Mumps, Other: 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 Within Last 30 Days No Contact With Traveler to Advisory Region No Chief Complaint c/o left flank pain and cloudy urine for 2-3 days Transported to ED by Private vehicle To Room Via Ambulate Tracking Acuity 3 - Urgent Accompanied by Unaccompanied Mode of Arrival Ambulatory Tetanus Immunization Greater than 5 years 05/22/2019 13:10 EDT Nurse Collect Order Detail 3.00 Nurse Collect Order Detail 3.00 . Radiology results: Computed tomography, discussed with radiologist. Impression and Plan Diagnosis Flank pain - Discharge, Emergency medicine, Medical Plan Condition: Stable. Disposition: Discharged Admit/Transfer/Discharge: Discharge (Order): Start: 05/22/2019 15:19 EDT, Discharge to: Home. Prescriptions: Prescription [facility]: [facility] 5 mg-325 mg oral tablet (Prescribe): 1 Tab, Oral, Q4H, for 2 Day(s), PRN: for pain, 12 Tab, 0 Refill(s). Patient was given the following educational materials: Flank Pain, Adult. Limitations: Limited activity. Follow up with: [facility] Within As needed Patient stated she is currently established with Nia Aguilera at [facility] in [place]. Feel free to contact our Patient Resource Center at [phone] for any future Physician scheduling needs. ; KEVEN SELLERS Within 2 to 3 days. Counseled: Patient, Regarding diagnosis, Regarding diagnostic results, Regarding treatment plan, Regarding prescription, Patient indicated understanding of instructions. documented in this encounter Plan of Treatment Not on file documented as of this encounter Visit Diagnoses Not on filedocumented in this encounter
--- OUTSIDE RECORDS SUMMARY | 2025-06-09 12:00 | XMS_ITS | Encounter Summary ---
Author Organization [employer] ([place], [place], [place], [place]) Address [address] [place] [address] Care Team Providers Care Drying Oven Attendant Name Role Phone Unavailable Primary Care Provider Unavailabl e Encounter Details Date Type Department Care Team (Late st Contact Info) Description 05/22/2019 Transcribed Document [facility] [place] [address] ProviderElena MD [address] [place] [id number] Social History Tobacco Use Types Packs/Day Years Used Date Smoking Tobacco: Never Assessed Comments Unknown Sex and Gender Information Value Date Recorded Sex Assigned at Not on file Legal Sex Female 5:06 PM CDT Gender Identity Not on file Sexual Orientation Not on file documented as of this encounter Miscellaneous Notes * Cerner Conversion Note - Historical ProviderMD - 05/22/2019 3:20 PM CDT Electronically signed by Ivana [facility] Conversion Grievance Coordinator Cerner at 03/12/2023 4:21 PM CDT documented in this encounter Plan of Treatment Not on file documented as of this encounter Visit Diagnoses Not on filedocumented in this encounter
--- OUTSIDE RECORDS SUMMARY | 2025-06-09 12:00 | XMS_ITS | Encounter Summary ---
Author Organization [employer] ([place], [place], [place], [place]) Address [address] [address] Care Team Providers Care Puttying And Calking Supervisor Name Role Phone Unavailable Primary Care Provider Unavailabl e Encounter Details Date Type Department Care Team (Late st Contact Info) Description 05/22/2019 Transcribed Document [facility] [place] [facility] [place] [address] ProviderElena MD [address] [place] [id number] Social History Tobacco Use Types Packs/Day Years [...] ProviderMD - 05/22/2019 1:10 PM CDT ED Triage Entered On: 05/22/2019 13:16 EDT Performed On: 05/22/2019 13:13 EDT by Julia Randolph RN ED Triage Across the Room Triage Date/Time : 05/22/2019 13:13 EDT Chief Complaint : c/o left flank pain and cloudy urine for 2-3 days Julia Randolph RN - 05/22/2019 13:13 EDT DCP GENERIC CODE Tracking Acuity : 3 - Urgent Tracking Group : [facility] ED Julia Leon RN - 05/22/2019 13:13 EDT Mode of Arrival : Ambulatory Transported to ED by : Private vehicle To Room Via : Ambulate Accompanied By : Unaccompanied ED Vital Signs : Document Height & Weight : Document ED Allergies : Document ED Reason for Visit : Document Last Menstrual Period : 03/01/2019 EDT Tetanus Immunization : Greater than 5 years Julia Randolph RN - 05/22/2019 13:13 EDT Infectious Disease History Infectious Disease History : Chicken pox/Shingles, Mumps, Other: [place]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 Within Last 30 Days : No Contact With Traveler to Advisory Region : No Tuberculosis Symptoms : None Julia Randolph RN - 05/22/2019 13:13 EDT Vital Signs ED Temperature Source : Oral Temperature Mode : Fahrenheit Temperature, Fahrenheit : 97.6 Deg F Clinical Temperature, C : 36.4 Deg C Oxygen Therapy Mode : Room air Peripheral Pulse Rate : 90 bpm Respiratory Rate : 20 Breaths/Min Systolic Blood Pressure : 138 mmHg Diastolic Blood Pressure : 96 mmHg (HI) Oxygen Saturation : 96 % Julia Randolph RN - 05/22/2019 13:13 EDT Allergy (As Of: 05/22/2019 13:16:21 EDT) Allergies (Active) lisinopril Estimated Onset Date: Unspecified ; Created By: CARINA MELCHOR RN; Reaction Status: Active ; Category: Drug ; Substance: lisinopril ; Type: Allergy ; Updated By: CARINA MELCHOR RN; Reviewed Date: 05/22/2019 13:15 EDT Percocet 5/325 Estimated Onset Date: Unspecified ; Created By: JOSIAH ONEILL RN; Reaction Status: Active ; Category: Drug ; Substance: Percocet 5/325 ; Type: Allergy ; Updated By: JOSIAH ONEILL RN; Reviewed Date: 05/22/2019 13:15 EDT sulfADIAZINE Estimated Onset Date: Unspecified ; Reactions: C/O: a swelling, Redness, C/O: a swelling~Redness ; Created By: CONTRIBUTOR_SYSTEM HIST_AUGUSTUS; Reaction Status: Active ; Category: Drug ; Substance: sulfADIAZINE ; Type: Allergy ; Updated By: MARCOSYSTEM HIST_AUGUSTUS; Reviewed Date: 05/22/2019 13:15 EDT Diagnosis Control ED (As Of: 05/22/2019 13:16:21 EDT) Problems(Active) 2 c-sections ( : ) Name [...] Life Cycle Status: Active Ectopic (SNOMED CT :40779959 ) Name of Problem: Ectopic ; Recorder: MONI YUNG MD-EMR; Confirmation: Confirmed ; Classification: Medical ; Code: [id number] ; Contributor System: PowerChart ; Last Updated: 10/24/2014 8:05 EST ; Life Cycle Date: 10/24/2014 ; Life Cycle Status: Active ; Responsible Provider: MONI YUNG MD-EMR; Vocabulary: SNOMED CT HTN (hypertension) (SNOMED CT :8587998709 ) Name of Problem: HTN (hypertension) ; Recorder: CARINA MELCHOR RN; Confirmation: Confirmed ; Classification: Medical ; Code: [id number] ; Contributor System: Power Surge ElectricChart ; Last Updated: 09/29/2014 14:18 EST ; Life Cycle Date: 09/29/2014 ; Life Cycle Status: Active ; Vocabulary: SNOMED CT Hypoglycemia (SNOMED CT :165945376 ) Name of Problem: Hypoglycemia ; Recorder: Ben Hernandez Rn; Confirmation: Confirmed ; Classification: Medical ; Code: [id number] ; Contributor System: PowerChart ; Last Updated: 10/15/2018 1:50 EST ; Life Cycle Date: 10/15/2018 ; Life Cycle Status: Active ; Vocabulary: SNOMED CT Migraine (SNOMED CT :21875614 ) Name of Problem: Migraine ; Recorder: NICOLE LAMA RN; Confirmation: Confirmed ; Classification: Medical ; Code: [id number] ; Contributor System: PowerChart ; Last Updated: 12/19/2015 0:55 EST ; Life Cycle Date: 12/19/2015 ; Life Cycle Status: Active ; Vocabulary: SNOMED CT Diagnoses(Active) Flank pain Date: 05/22/2019 ; Diagnosis Type: Reason For Visit ; Confirmation: Complaint of ; Clinical Dx: Flank pain ; Classification: Medical ; Clinical Service: Emergency medicine ; Code: PNED ; Probability: 0 ; Diagnosis Code: [id number] ED Height and Weight Height Source : Stated Height Entry Format : Ward Height, Feet : 4 ft(Converted to: 122 cm, 48 Inch) Height, Inches : 11 Inch(Converted to: 0 ft 11 Inch, 27.94 cm) Clinical Height : 149.86 cm Weight Source, ED : Critical estimated dosing weight Weight Entry Format : Ward Weight, Pounds : 150 lb Clinical Dosing Weight : 68.18 kg Body Surface Area (BSA) : 1.63 m2 Body Mass Index : 30.4 kg/m2 (HI) [place] Body Weight (IBW) : 42.87 kg Julia Randolph RN - 05/22/2019 13:13 EDT documented in this encounter Plan of Treatment Not on file documented as of this encounter Visit Diagnoses Not on filedocumented in this encounter
--- OUTSIDE RECORDS SUMMARY | 2025-06-09 12:00 | XMS_ITS | Encounter Summary ---
Author Organization [employer] ([place], [place], [place], [place]) Address [address] [place] [address] Care Team Providers Care Family Resource Management Specialist Name Role Phone Unavailable Primary Care Provider Unavailabl e Encounter Details Date Type Department Care Team (Late st Contact Info) Description 01/01/2019 Transcribed Document [facility] [place] [facility] [place] [address] ProviderElena MD [address] [place] [id number] Social History Tobacco Use Types Packs/Day Years Used Date Smoking Tobacco: Never Assessed Comments Unknown Sex and Gender Information Value Date Recorded Sex Assigned at Not on file Legal Sex Female 5:06 PM CDT Gender Identity Not on file Sexual Orientation Not on file documented as of this encounter Miscellaneous Notes * [employer]ner Conversion Note - Historical ProviderMD - 01/01/2019 11:20 AM SALES APPRENTICE ED Assessment Entered On: 01/01/2019 12:21 EST Performed On: 01/01/2019 12:17 EST by JANI CATALAN RN ED Quick Look Assessment Level of Consciousness : Alert, Awake Affect/Behavior : Cooperative Orientation : Oriented x 4 Skin Color : Pallor Skin Temperature : Warm Skin Description : Dry JANI CATALAN RN - 01/01/2019 12:17 EST ED General-Functional Assess Information Obtained From : Patient Preferred Communication Mode : Verbal Communication Barrier : None Primary Language : Croatian Any Spiritual/Cultural Needs or Requests : No Currently in Unsafe Situation : No JANI CATALAN RN - 01/01/2019 12:17 EST Social Habits Smoking Status : 5-9 cigarettes (between 1/4 to 1/2 pack)/day in last 30 days Smokeless Tobacco Status : Never Desires Tobacco Cessation Medication : No Reason for No Tobacco Cessation Medication : ED/procedural patient only Desires Tobacco Cessation Calc : 1 JANI CATALAN RN - 01/01/2019 12:17 EST Social History (As Of: 01/01/2019 12:21:23 EST) Tobacco: Smoking Status Current every day smoker. [...] Updated: 12/19/2015 01:02:37 EST by NICOLE LAMA, RN) Nutrition/Health: Regular (Last Updated: 01/01/2019 12:19:40 EST by JANI CATALAN, RN) Home/Environment: Lives with Children. (Last Updated: 10/15/2018 02:51:16 EST by Ben Hernandez, Brad) Employment/School: Employed, Work/School description: [employer]. (Last Updated: 10/15/2018 02:51:38 EST by Ben Hernandez, Rn) Cardiovascular ASMT, ED EKG Completed by : FRANCE ARITA EKG Time Completed : 01/01/2019 11:27 EST EKG Communicated to Provider : NAE GREEN MD EKG Time Communicated to Provider : 01/01/2019 11:27 EST JANI CATALAN RN - 01/01/2019 15:02 EST Edema Comment : No edema noted. Pt. reports nausea and dizziness with slight chest pain. JANI CATALAN RN - 01/01/2019 14:57 EST Cardiovascular Assessment WDL : WDL with exceptions Cardiovascular Symptoms : Chest discomfort at rest, Chest pain with activity Heart Rhythm : Regular Chest Pain : Yes JANI CATALAN RN - 01/01/2019 12:17 EST Electronically signed by Ivana [facility] Conversion Meter Tester Primary Cerner at 03/12/2023 4:22 PM CDT documented in this encounter Plan of Treatment Not on file documented as of this encounter Visit Diagnoses Not on filedocumented in this encounter
--- OUTSIDE RECORDS SUMMARY | 2025-06-09 12:00 | XMS_ITS | Encounter Summary ---
Author Organization [employer] ([place], [place], [place], [place]) Address [address] [place] [address] Care Team Providers Care Associate Professor Of Theology Name Role Phone Unavailable Primary Care Provider Unavailabl e Encounter Details Date Type Department Care Team (Late st Contact Info) Description 01/01/2019 Transcribed Document [facility] [place] [facility] [address] ProviderElena MD [address] [place] [address] Social History Tobacco Use Types Packs/Day Years Used Date Smoking Tobacco: Never Assessed Comments Unknown Sex and Gender Information Value Date Recorded Sex Assigned at Not on file Legal Sex Female 5:06 PM CDT Gender Identity Not on file Sexual Orientation Not on file documented as of this encounter Miscellaneous Notes * Cerner Conversion Note - Historical ProviderMD - 01/01/2019 2:13 PM WRECKING SUPERVISOR [facility] [address] [place] [address] PERSON INFORMATION Name DONYA MALDONADO Age 43 Years 1975 Sex Female Language Burundian PCP KEVEN SELLERS NP-INT Marital Status Single Med Service Emergency Medicine Acct# Arrival 01/01/2019 11:20:00 Visit Reason Headache; Chest pain; CP,SOA Acuity 2 - Emergent LOS 000 02:53 Depart Date: 01/01/19 01:42 PM Address: [address] [place] [id number] Comment: PROVIDER INFORMATION Provider Role Assigned Unassigned ROBERT GREEN MD ED Physician 01/01/2019 11:23:46 JANI CATALAN, FARM MANAGER Nurse 01/01/2019 11:56:40 DIAGNOSIS Chest pain PHYS DOC NOTES VITALS INFORMATION Vital Sign Triage Latest Temp Source Oral Oral Temp Mode Fahrenheit Fahrenheit Temp Fahrenheit 97.8 Deg F 97.8 Deg F Temp Celsius 02 Sat 100 % 100 % Respiratory Rate 20 Breaths/Min 20 Breaths/Min Peripheral Pulse Rate 78 bpm 78 bpm Apical Heart Rate Blood Pressure 138 mmHg / 78 mmHg 138 mmHg / 78 mmHg Comment: MEDICAL INFORMATION Allergy Info: Percocet 5/325; sulfADIAZINE; lisinopril Medications: Prescription Display acetaminophen-hydrocodone ([place] 7.5 mg-325 mg oral tablet) 1 Tab, Oral, Tab, Q4H, PRN as needed for pain, X 2 Day(s), # 12 Tab, 0 Refill(s) Comment: DISCHARGE INFORMATION Discharge Disposition: Home Discharge Location: PATIENT EDUCATION INFORMATION Instructions: Nonspecific Chest Pain Follow up: With: Address: When: KEVEN SELLERS [address] [place], [place] [id number] [facility] ([employer] Within 2 to 3 days Comment: Electronically signed by Jane Heath Conversion Maintenance Worker Swimming Pool Cerner at 03/12/2023 4:11 PM CDT documented in this encounter Plan of Treatment Not on file documented as of this encounter Visit Diagnoses Not on filedocumented in this encounter
--- OUTSIDE RECORDS SUMMARY | 2025-06-09 12:00 | XMS_ITS | Encounter Summary ---
Author Organization [employer] ([place], [place], [place], [place]) Address [address] [place] [address] Care Team Providers Care Power Cutting Machine Operator Name Role Phone Unavailable Primary Care Provider Unavailabl e Encounter Details Date Type Department Care Team (Late st Contact Info) Description 05/22/2019 Transcribed Document [facility] Family [place] [facility] [place] [address] ProviderElena MD [address] [place] [id number] Social History Tobacco Use Types Packs/Day Years Used Date Smoking Tobacco: Never Assessed Comments Unknown Sex and Gender Information Value Date Recorded Sex Assigned at Not on file Legal Sex Female 5:06 PM CDT Gender Identity Not on file Sexual Orientation Not on file documented as of this encounter Miscellaneous Notes * Cerner Conversion Note - Elena Brock MD - 05/22/2019 3:21 PM CDT [facility] [address] [place] [address] DONYA MALDONADO :1975 Visit Time:05/22/2019 Your Visit Summary Your Care Team Admitting Physician - NAE GREEN MD-EMR Attending Physician - NAE GREEN MD-EMR Primary Care Physician - KEVEN SELLERS NP-INT Referring Physician - NAE GREEN MD-EMR Your Diagnosis Flank pain Flank pain Medical Information You may obtain a copy of your Emergency Department visit from Medical Records by calling the hospital phone number listed above and asking to be directed to the Medical Records Department. If you had special tests, such as EKG???s or X-rays, the interpretation of your tests given to you by the Emergency Department Physician is a preliminary report. Some fractures and illnesses fail to show up on preliminary tests. These will be reviewed again and we will call you if there are any new suggestions. If your symptoms continue notify your physician. After you leave, you should follow the instructions provided. What to do next Follow-Up Appointments Follow Up with [facility]IENT [facility]OURCE [facility] When Within As needed Comments Patient stated she is currently established with Nia Aguilera at [facility] in [place]. Feel free to contact our Patient Resource Center at [phone] for any future Physician scheduling needs. Follow Up with KEVEN SELLERS When Within 2 to 3 days Where: [address] [facility] [address] [place] [address]- Business (1) Allergies Percocet 5/325 lisinopril sulfADIAZINE (C/O: a swelling~Redness, C/O: a swelling, Redness) Immunizations This Visit No Immunizations Found Medications What How Much When Instructions Next Dose New acetaminophen-hydrocodone ([place] 5 mg-325 mg oral tablet) 1 Tablet(s) Oral Every 4 Hours as needed for for pain Duration: 2 Day(s) Printed Prescription The home medications listed are only as accurate as the information you provided. Please continue taking all of your medications prescribed by your Primary Care Provider unless specifically told to change or discontinue the medication. Please direct any questions regarding your home medications to your Primary Care Provider. Take your medications faithfully. Do NOT skip medication. Do NOT stop taking medications without the direction of a physician. Carry a list of your medications with you at all times, and take this medication list with you to your first follow up visit. Report any side effects. Avoid herbal remedies unless discussed with your physician. As part of your treatment plan, [...] cramping, rapid heartbeat, difficulty sleeping, and nervousness. Please dispose of unused and medications per pharmacy guidance. Test Results Laboratory or Other Results This Visit (last charted value for your 05/22/2019 visit) Urinalysis 05/22/19 13:19:00 Urine Nitrite: Negative Urine Leukocyte Esterase: Negative Urine Appearance: Clear Urine Glucose Dipstick: Negative Urine Blood Dipstick: Trace - Intact Urine Urobilinogen Dipstick: 0.2 EU/dL Urine Protein Dipstick: 30 Ur Amorph: Trace Ur Squamous Epithelial Cells: 0-2 /HPF Urine Color: Light Yellow Ur WBC: 0-2 /HPF Urine Ketones Dipstick: Negative Urine pH Dipstick: 8.5 -- Normal range between ( 6.0 and 8.0 ) Urine Bilirubin Dipstick: Negative Urine Specific [place]: 1.015 -- Normal range between ( 1.005 and 1.030 ) Urine Type.: U [facility] 05/22/19 13:19:00 HCG Urine Qualitative: Negative Education Materials Flank Pain, Adult Flank pain is pain that is located on the side of the body between the upper abdomen and the back. This area is called the flank. The pain may occur over a short period of time (acute), or it may be long-term or recurring (chronic). It may be mild or severe. Flank pain can be caused by many things, including: ??? Muscle soreness or injury. ??? Kidney stones or kidney disease. ??? Stress. ??? A disease of the spine (vertebral disk disease). ??? A lung infection (pneumonia). ??? Fluid around the lungs (pulmonary edema). ??? A skin rash caused by the chickenpox virus (shingles). ??? Tumors that affect the back of the abdomen. ??? Gallbladder disease. Follow these instructions at home: ??? Drink enough fluid to keep your urine clear or pale yellow. ??? Rest as told by your health care provider. ??? Take swzi-rpc-ryvyksm and prescription medicines only as told by your health care provider. ??? Keep a journal to track what has caused your flank pain and what has made it feel better. ??? Keep all follow-up visits as told by your health care provider. This is important. Contact a health care provider if: ??? Your pain is not controlled with medicine. ??? You have new symptoms. ??? Your pain gets worse. ??? You have a fever. ??? Your symptoms last longer than 2???3 days. ??? You have trouble urinating or you are urinating very frequently. Get help right away if: ??? You have trouble breathing or you are short of breath. ??? Your abdomen hurts or it is swollen or red. ??? You have nausea or vomiting. ??? You feel faint or you pass out. ??? You have blood in your urine. Summary ??? Flank pain is pain that is located on the side of the body between the upper abdomen and the back. ??? The pain may occur over a short period of time (acute), or it may be long-term or recurring (chronic). It may be mild or severe. ??? Flank pain can be caused by many things. ??? Contact your health care provider if your symptoms get worse or they last longer than 2???3 days. This information is not intended to replace advice given to you by your health care provider. Make sure you discuss any questions you have with your health care provider. Document Released: 01/03/2007 Document Revised: 01/25/2018 Document Reviewed: 01/25/2018 [employer] Interactive Patient Education ?? 2019 [employer] Emergency Awareness and Preventative Care STROKE is an EMERGENCY Every Minute Counts Act FAST and Check for these signs: FACE Does the face look uneven? ARM Does one arm drift down? SPEECH Does their speech sound strange? TIME Call at any sign of stroke Stroke Risk Factors Atrial Fibrillation (irregular heartbeat) Diabetes Family history of stroke Heart Disease Heavy alcohol use High Blood Pressure High Cholesterol Physical inactivity and obesity Smoking Cigarette Smoking The facts are clear, cigarette smoking will shorten your life. Smoking can cause many illnesses along the way. As a healthcare provider, we recommend that you stop smoking. Assistance with quitting is available by contacting 9-955-LYDXNOW. This is a free resource providing counseling, support, and referral. Or you may contact your personal physician. [place] Suicide Prevention Lifeline: The National Suicide Prevention Lifeline is a national network of local crisis centers that provides free and confidential emotional support to people in suicidal crisis or emotional distress 24 hours a day, 7 days a week. Don't Wait! Stop a Heart Attack Before it Starts What is a heart attack? A heart attack is damage or to a part of the heart from severely decreased or lack of blood flow to the heart. Over time, arteries can become narrow from the buildup of fat and cholesterol, which is called plaque. The plaque can rupture causing a blood clot to form. When the blood clot forms, the artery can become severely narrowed or completely blocked, causing a heart attack. Heart attack is the leading cause of in the [place]. 85% of muscle damage occurs within the first 2 hours. Delay in the recognition of heart attack symptoms increases the chances of . Know the early symptoms of a heart attack: Nausea Feeling of fullness in chest Jaw Pain Pain that travels down one or both arms Fatigue/being tired Anxiety Back Pain Chest pressure, squeezing, or discomfort Shortness of breath Sweating, or a cold sweat Feeling of impending doom There are unusual signs of a heart attack, too! Women, the elderly, and diabetics may present with atypical symptoms: Fainting/dizziness Weakness Confusion Risk Factors for a Heart Attack Some heart disease risk factors, such as age and family history, cannot be changed. Others, like smoking and lack of exercise, can be changed. Smoking High Cholesterol High Blood Pressure Family History Obesity Age Gender (Males are at higher risk) Lack of Exercise Diabetes Diet Stress Excessive Alcohol Intake If you or someone you know is experiencing the signs and symptoms of a heart attack, DON???T DELAY. Call immediately and seek help. If someone collapses, perform CPR! Do not attempt to drive if you are having symptoms of heart attack. Hands-Only CPR Why Hands-Only CPR? Hands-Only CPR has been shown to be as effective as conventional CPR for cardiac arrests that occur outside of a hospital. Survival depends on immediately receiving CPR from someone nearby. How do you perform Hands-Only CPR? There are two easy steps: Call 9-1-1 if you see a teen or adult collapse Push hard and fast in the center of the chest at a beat of 100 beats per minute. Save a life! 4 WAYS TO GET AHEAD OF SEPSIS SEPSIS is a MEDICAL EMERGENCY. Time matters! Infections put you and your family at risk for a life-threatening condition called sepsis. Sepsis is the body's extreme response to an infection. It is life-threatening, and without timely treatment, sepsis can rapidly lead to tissue damage, organ failure, and . Sepsis happens when an infection you already have-in your skin, lungs, urinary tract or somewhere else-triggers a chain reaction throughout your body. 1 [...] sepsis or if you have an infection that is not getting better or is getting worse. To learn more about sepsis and how to prevent infections, visit www.cdc.gov/sepsis. The examination and treatment you have received [...] that requires the expertise of a specialist. These physicians work in partnership with the hospital and have agreed to see referred patients in their office for further evaluation. KEEP IN MIND THAT THE SPECIALIST HAS HIS/HER OWN OFFICE POLICIES WHICH MAY REQUIRE PROPER INSURANCE OR PAYMENT UP FRONT BEFORE THE SPECIALIST WILL SEE YOU. It is your responsibility to call the specialist physician to make an appointment. We do not have the ability to refer patients to specialists/physicians that work with specific insurance companies. [...] necessary to obtain coverage for claims submitted. We will bill your insurance; however, you are responsible today for any co-pay amounts. You will receive a separate bill for any services you may have received including: emergency, radiology, or pathology physicians. Patient Name:DONYA MALDONADO I have received this information and was given the opportunity to ask questions. Patient/Residential Door Installer Name: Patient/Residential Door Installer Signature: Relationship to Patient: Clinician/Hospital Residential Door Installer Signature: Please Provide a Telephone Number Where You Can Be Reached: Is it Permissible To Leave a Message? Date: Electronically signed by Interface, [facility] Conversion Electrical Control Assembler Cerner at 03/12/2023 4:26 PM CDT documented in this encounter Plan of Treatment Not on file documented as of this encounter Visit Diagnoses Not on filedocumented in this encounter
--- OUTSIDE RECORDS SUMMARY | 2025-06-09 12:01 | XMS_ITS | Patient Health Record ---
Author Organization [facility] Address [address] [facility] [address] [place] [address] Care Team Providers Care Counseling Psychologist Name Role Phone Shana Min [phone] Allergies Allergen (clinical drug ingredient) Drug/Non Drug Allergy documented on EMR Reaction Allergy Type Onset Date Status PERCOCET (OXYCODONE-ACETAMI NOPHEN TABS) Unspecified Drug Allergy 03/12/2019 Active sulfamethoxazole / trimethoprim SULFAMETHOXAZOLE-T RIMETHOPRIM Unspecified Drug Allergy 03/11/2015 Active lisinopril LISINOPRIL (uncoded) Unspecified Allergy 09/18/2017 Active Reason For Referral No Information Medications Medication SIG (Take, Route, Frequency, Duration) Notes Start Date End Date Status amLODIPine Besylate 5 MG Tablet 1 tablet Orally Once a day Active hydroCHLOROthiazide Active Ortho Micronor Activ e Macrobid 100 MG Capsule 1 capsule Orally twice a day; Duration: 5 day(s) 05/03/2022 Active Metoprolol Succinate ER Active Social History Social History Drugs/Alcohol: Social Info Question Answer Notes Alcohol Screen Did you have a drink containing alcohol in the past year? No Points 0 Interpretation Negative Additional Details Category Social Info Options Details Miscellaneous: Sexually active: SEXUAL AC TIV: yes Plan Of Treatment No Information Insurance Providers Payer Name Payer Address Payer Phone Subscriber Number Group Number Insured Name Patient Relationship to Insured Coverage Start Date Coverage End Date [employer] [facility] [address] [place] [phone] [id number] PhaniDonya Self - patient is the insured 2 Medical (General) History Medical History History ICD Code Recurrent miscarriages PID Abnormal paps Breast pain Yeast infections High blood pressure Acid reflux UTIs Anxiety Depression Moderate dysplasia Surgical History Surgery Date(Month/Year) C/S x 1, left hand sx, D&C x 4 for MAB, LEEP Hospitalization History Reason Date(Month/Year)
--- OUTSIDE RECORDS SUMMARY | 2025-06-09 12:01 | XMS_ITS | Clinical Summary ---
Author Organization [facility] Address [address] [place] [address] Phone Care Team Providers Care Prop And Scenery Maker Name Role Phone Unavailable Primary Care Provider Unavailabl e Social History Tobacco Use Types Packs/Day Years Used Date Smoking Tobacco: Never Assessed Comments Unknown Sex and Gender Information Value Date Recorded Sex Assigned at Not on file Legal Sex Female 1:45 PM EST Gender Identity Not on file Sexual Orientation Not on file Plan of Treatment Health Maintenance Due Date Last Done Comments Annual Wellness Exam 1978 Cervical Cancer Screening 1996 Pap Smear 1996 Hepatitis B Vaccine (2 of 3 - 19+ 3-dose series) 11/11/2001 10/14/2001 HPV/Pap Cotest 2005 DTaP/TDaP/Td (2 - Td or Tdap) 04/30/2020 04/30/2010 Cologuard 2020 Colon Cancer Screening 2020 Colonoscopy 2020 FIT 2020 Sigmoidoscopy 2020 Virtual Colonography 2020 COVID-19 Vaccine ( season) 2024 Influenza Vaccine (#1) 2025 9, 12/26/2017, 10/26/2016, Additional history exists Breast Cancer Screening 01/04/2026 01/04/2024, 06/13 Meningococcal B Vaccine Aged Out No l onger eligible based on patient's age to complete this topic Pneumococcal Vaccine 0-49 Aged Out No longer eligible based on patient's age to complete this topic Procedures Procedure Name Priority Date/Time Associated Diagnosis Comments MM MAMMO DIGITAL ADRIANNE SCREEN BILAT Routine 01/04/2024 1:53 PM EST Encounter for screening mammogram for malignant neoplasm of breast from Last 3 Months or Most Recently Relevant to Health Maintenance Results * MM MAMMO DIGITAL ADRIANNE SCREEN BILAT (01/04/2024 1:53 PM EST) Anatomical Region Laterality Modality Breast Bilateral Mammography 01/09/2024 8:21 AM EST Addenda Addendum by Irene Stacy MD on 01/29/2024 7:40 AM EST January 28, 2024: Comparison imaging available from 2020 and 2011. No significant change to the report. Irene Stacy MD Impressions 01/09/2024 8:21 AM EST Negative ([id number]) ~ RECOMMENDATION: Routine screening mammogram in 1 year. DISCLAIMER * Any patient with a palpable abnormality, unexplained by breast imaging, should be managed on clinical basis by the attending physician. * Breast imaging has a false negative rate of 15%. * The patient was notified by mail of the results of this examination. *The patient's information was entered into a reminder system with a target due date for the next mammogram, in accordance with the [employer] and the Society of Breast Imaging recommendations. Narrative 01/09/2024 8:21 AM EST Procedure:MM MAMMO DIGITAL ADRIANNE SCREEN BILAT ~ Reason for exam: screening, asymptomatic. Z12.31-Encounter for screening mammogram for malignant neoplasm of [id number] ~ MM MAMMO DIGITAL ADRIANNE SCREEN BILAT Bilateral CC and MLO view(s) were taken. There are scattered fibroglandular densities. Prior study comparison: Compared with prior studies the most recent being none No mammographic evidence of malignancy. ~ ADDENDUM: ~ Procedure Note Irene Stacy MD - 01/29/2024 Procedure:MM MAMMO DIGITAL ADRIANNE SCREEN BILAT ~ Reason for exam: screening, asymptomatic. Z12.31-Encounter for screening mammogram for malignant neoplasm of [id number] ~ MM MAMMO DIGITAL ADRIANNE SCREEN BILAT Bilateral CC and MLO view(s) were taken. There are scattered fibroglandular densities. Prior study comparison: Compared with prior studies the most recentbeing none No mammographic evidence of malignancy. ~ ADDENDUM: ~ IMPRESSION: Negative ([id number]) ~ RECOMMENDATION: Routine screening mammogram in 1 year. DISCLAIMER * Any patient with a palpable abnormality, unexplained by breast imaging, should be managed on clinical basis by the attending physician. * Breast imaging has a false negative rate of 15%. * The patient was notified by mail of the results of this examination. *The patient's information was entered into a reminder system with atarget due date for the next mammogram, in accordance with the [employer] and the Society of Breast Imaging recommendations. us Not In [facility] Provider IMG MAMMOGRAPHY ORDERABLES Edited Result - Final from Last 3 Months or Most Recently Relevant to Health Maintenance Insurance [id number]
--- OUTSIDE RECORDS SUMMARY | 2025-06-09 12:01 | XMS_ITS | Encounter Summary ---
Author Organization [employer] ([place], [place], [place], [place]) Address [address] [place] [address] Care Team Providers Care Barn Manager Name Role Phone Unavailable Primary Care Provider Unavailabl e Encounter Details Date Type Department Care Team (Late st Contact Info) Description 01/01/2019 Transcribed Document [facility] [place] [facility] [place] [address] ProviderElena MD [address] [place] [address] Social History Tobacco Use Types Packs/Day Years Used Date Smoking Tobacco: Never Assessed Comments Unknown Sex and Gender Information Value Date Recorded Sex Assigned at Not on file Legal Sex Female 5:06 PM CDT Gender Identity Not on file Sexual Orientation Not on file documented as of this encounter Miscellaneous Notes * Cerner Conversion Note - Historical ProviderMD - 01/01/2019 11:38 AM 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 Vital Signs ED Entered On: 01/01/2019 12:32 EST Performed On: 01/01/2019 12:31 EST by JANI CATALAN RN Vital Signs ED Temperature Mode : Fahrenheit Systolic Blood Pressure, Supine : 115 mmHg Diastolic Blood Pressure, Supine : 72 mmHg Pulse Supine : 67 bpm Systolic B/P, Sitting : 122 mmHg Diastolic B/P, Sitting : 76 mmHg Pulse Sitting : 70 bpm Systolic Blood Pressure, Standing : 118 mmHg Diastolic Blood Pressure, Standing : 81 mmHg Pulse Standing : 76 bpm JANI CATALAN RN - 01/01/2019 12:31 EST Electronically signed by Ivana [facility] Conversion Customer Service Cashier Cerner at 03/12/2023 4:18 PM CDT documented in this encounter Plan of Treatment Not on file documented as of this encounter Visit Diagnoses Not on filedocumented in this encounter
--- OUTSIDE RECORDS SUMMARY | 2025-06-09 12:01 | XMS_ITS | Continuity of Care Document ---
Author Organization [place] - [employer] [facility] Address [address] [place] [phone] Assessment No assessment recorded. Plan of Treatment Reminders Order Date Submit Date Provider Last Modified By Organization Details Last Modified Time Details Appointments FOLLOW UP 30 2024 01:00P Fabienne Cobian APRN Not available Not available Not available Lab HbA1c (hemoglob in A1c), blood 2024 025 [email or web address] [facility], [address] [place] [address], [phone], 05/08/2025 12:52:17 glucose, fingersti ck, blood [email or web address] [place] [address], [address] [place] [address], [phone], 05/08/2025 12:52:17 Referral ophthalmo logist referral [address], [address] [place], [address], 05/26/2025 15:13:19 Procedures diabetic foot screen (PROC) 2024 025 [email or web address] Not available 05/08/2025 12:10:08 Surgeries None recorded. Imaging None recorded. Medication Orders hydrochlo rothiazid e 25 mg tablet 2024 025 [id number], [address] [place], [id number], 05/08/2025 12:13:13 Patient TargetsNo targets recorded. 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 Problems Name Problem SNOMED Code Status Onset Date Resolution Date Notes Provider Name and Address Organization Details Recorded Time Dizziness 932845460 Completed 202212/13/2024 Melissa Collins NP [address] [place], [address], [facility] [employer] 5 12:07:46 Gastroesoph ageal reflux disease without esophagitis 392585514 Active 2022 Melissa Collins NP [address] [place], [address], [facility] [employer] 5 12:07:48 Costal chondritis 51780952 Completed 202212/13/2024 Melissa Collins NP [address] [place] [address], [phone], [employer] 5 12:07:40 Diabetes mellitus 44506313 Active 2023 Melissa Collins, [employer] [address] [place], [address], [employer] 5 12:07:43 Chest pain 28146189 Active 2024 Melissa Collins, [employer] [address] [place], [address], [place] [employer] 5 12:07:38 Palpitation s 60545364 Active 2024 Melissa Collins, [employer] [address] [place], [address], [employer] 5 12:07:50 Type 2 diabetes mellitus without complicatio n 890950328 Active 2024 Shaista Tejadally [employer], [employer] 13:22:11 Hyperlipide bunny 82044677 Active 2024 Shaista Tejadally null, [employer] 13:23:10 Vitamin D deficiency 62540399 Active 2024 Shaista Doddy null, [employer] 13:23:18 Vitamin B deficiency 25121406 Active 2024 Shaista [place] null, [employer] 13:23:25 Fatigue 95315858 Active 2024 Shaista Tejadally null, [employer] 11:59:52 Type 2 diabetes mellitus 13173822 Active 2024 Shaista [place] null, [employer] 17:39:14 Problem Notes None recorded. Procedures Surgical History Date Name Laterality Status Provider Name and Address Organization Details Recorded Time 01/04/20 Most Recent Mammogram completed Shaista Colbert [employer] 01/11/2024 17:17:10 12/07/19 placement of stent in cardiac conduit completed [employer] 11/07/2023 16:47:33 Caesarean Section completed [facility] 11/07/2023 16:47:42 Carpal tunnel surgery completed [facility] 11/07/2023 16:47:54 tympanostomy completed [facility]. 11/07/2023 16:47:59 LEEP completed [facility]. 11/07/2023 16:48:05 Imaging Results None recorded. Procedure Notes None recorded. Medical Equipment None Reported. Allergies Allergen ID Allergen Name Allergen Category Reaction Reaction Severity Criticality Documentation Date Start Date Code Code System Note Provider Name and Address Organization Details Recorded Time 25471 lisinopri l medicatio n Not available Not available Not available 08/03/2023 80969 RxNorm ROBIN ARRIETA [employer], [employer] 3 16:09:42 82095 Substance with sulfonami de structure and antibacte rial mechanism of action (substanc e) medicatio n Not available Not available Not available 08/03/2023 47016 8003 SNOMED ROBIN ARRIETA [employer], [employer] 3 16:09:59 13337 acetamino phen / oxycodone medicatio n Not available Not available Not available 08/03/2023 56543 3 RxNorm ROBIN ARRIETA [employer], [employer] 3 16:10:07 55108 isosorbid e medicatio n decreased blood pressure Not available Not available 12/06/2023 6057 RxNorm Shaistatatiana Colbert [employer], [employer] 4 11:53:23 Medications Name Sig Start Date Stop Date Status Note LastModified by Organization Details LastModified Time senna-s 8.6mg-50m g tablets TAKE 2 TABLET BY MOUTH AT NIGHT NEEDED FOR CONSTIPA TION FOR UP TO 7 DAYS 12/28 completed Not Available Not Available Not Available cyclobenz aprine 10 mg tablet TAKE 1 TABLET BY MOUTH THREE TIMES DAILY NEEDED FOR MUSCLE SPASM 08/03 completed Not Available Not Available Not Available furosemid e 40 mg tablet TAKE 1/2 TABLET BY MOUTH EVERY DAY active cardio Not Available Not Available No t Available methocarb samia 500 mg tablet TAKE 2 TABLETS BY MOUTH EVERY 8 HOURS NEEDED 08/03 completed Not Available Not Available Not Available metformin 500 mg tablet TAKE ONE TABLET BY MOUTH TWICE DAILY with meals 01/11 completed causes vomiting Not Available Not Available Not Available atorvasta tin 80 mg tablet TAKE 1 TABLET BY MOUTH DAILY active Not Available Not Available No t Available doxycycli ne hyclate 100 mg capsule Take 1 capsule twice a day by oral route. 11/07 completed Not Available Not Available Not Available azithromy hernesto 250 mg tablet TAKE 1 TABLET BY MOUTH EVERY DAY 08/03 completed Not Available Not Available Not Available ibuprofen 800 mg tablet TAKE 1 TABLET BY MOUTH EVERY 12 HOURS NEEDED 12/10 completed Not Available Not Available Not Available Lidocaine Viscous 2 % mucosal solution TAKE 5ML BY MOUTH BEFORE MEALS AND BEFORE BEDTIME NEEDED FOR PAIN 11/07 completed Not Available Not Available Not Available metoprolo l succinate ER 50 mg tablet,ex tended release 24 hr TAKE 1 TABLET BY MOUTH EVERY DAY 03/28 completed Not Available Not Available Not Available hydrocodo ne 5 mg-acetam inophen 325 mg tablet 12/28 completed Not Available Not Available Not Available sucralfat e 1 gram tablet TAKE 1 TABLET BY MOUTH EVERY 6 HOURS NEEDED FOR DYSPEPSI A active Not Available Not Available No t Available FreeStyle Lancets 28 gauge USE THREE TIMES DAILY as directed active Not Available Not Available No t Available ondansetr on HCl 4 mg tablet TAKE 1 TABLET BY MOUTH EVERY 4 TO 6 HOURS NEEDED active Not Available Not Available No t Available prednison e 20 mg tablet TAKE 1 TABLET BY MOUTH EVERY DAY FOR 5 DAYS active Not Available Not Available No t Available isosorbid e mononitra te ER 30 mg tablet,ex tended release 24 hr TAKE 1 TABLET BY MOUTH DAILY active Not Available Not Available No t Available metoprolo l succinate ER 100 mg tablet,ex tended release 24 hr TAKE 1 TABLET BY MOUTH DAILY active Not Available Not Available No t Available glipizide ER 5 mg tablet, extended release 24 hr TAKE 1 TABLET BY MOUTH EVERY DAY active Not Available Not Available No t Available clindamyc in HCl 150 mg capsule TAKE 1 CAPSULE BY MOUTH FOUR TIMES DAILY FOR 7 DAYS 12/10 completed Not Available Not Available Not Available hydroxyzi ne pamoate 50 mg capsule TAKE 1 CAPSULE BY MOUTH THREE TIMES DAILY NEEDED active Not Available Not Available No t Available valsartan 80 mg tablet TAKE ONE TABLET BY MOUTH TWICE DAILY 02/06 completed Not Available Not Available Not Available hydralazi ne 25 mg tablet TAKE 1 TABLET BY MOUTH THREE TIMES DAILY NEEDED FOR HIGH BLOOD PRESSURE active Not Available Not Available No t Available amlodipin e 2.5 mg tablet TAKE 1 TABLET BY MOUTH DAILY active Not Available Not Available No t Available clopidogr el 75 mg tablet TAKE 1 TABLET BY MOUTH DAILY active Not Available Not Available No t Available amlodipin e 5 mg tablet TAKE 1 TABLET BY MOUTH DAILY 05/08 completed Not Available Not Available Not Available ciproflox acin 500 mg tablet TAKE ONE TABLET BY MOUTH EVERY TWELVE HOURS FOR 7 DAYS 02/05 completed Not Available Not Available Not Available omeprazol e 40 mg capsule,d elayed release Take 1 capsule every day by oral route. 06/27 completed cant take with plavix Not Available Not Available Not Available aspirin 81 mg tablet,de layed release TAKE 1 TABLET BY MOUTH DAILY active Not Available Not Available No t Available spironola ctone 25 mg tablet TAKE 1 TABLET BY MOUTH TWICE DAILY active Not Available Not Available No t Available ketorolac 10 mg tablet TAKE 1 TABLET BY MOUTH EVERY 6 HOURS NEEDED FOR MODERATE PAIN 12/10 completed Not Available Not Available Not Available nortripty line 25 mg capsule TAKE 1 CAPSULE BY MOUTH EVERY NIGHT. SCHEDULE AN APPOINTM ENT FOR FUTRTHER REFILLS. 06/27 completed Not Available Not Available Not Available meloxicam 7.5 mg tablet TAKE 1 TABLET BY MOUTH DAILY 08/03 completed Not Available Not Available Not Available isosorbid e mononitra te ER 60 mg tablet,ex tended release 24 hr TAKE ONE TABLET BY MOUTH EVERY DAY 06/27 completed Not Available Not Available Not Available potassium chloride ER 20 mEq tablet,ex tended release(p art/cryst ) TAKE ONE TABLET BY MOUTH TWICE DAILY 06/27 completed Not Available Not Available Not Available famotidin e 20 mg tablet TAKE 1 TABLET BY MOUTH TWICE DAILY 05/08 completed Not Available Not Available Not Available amlodipin e 10 mg tablet TAKE 1 TABLET BY MOUTH EVERY DAY 12/06 completed Not Available Not Available Not Available benzonata te 100 mg capsule TAKE 1 TO 2 CAPSULES BY MOUTH THREE TIMES DAILY FOR 10 DAYS NEEDED 08/03 completed Not Available Not Available Not Available hydrocodo ne 7.5 mg-acetam inophen 325 mg tablet TAKE 1 TABLET BY MOUTH EVERY 6 HOURS NEEDED 12/10 completed Not Available Not Available Not Available cephalexi n 500 mg capsule TAKE ONE CAPSULE BY MOUTH TWICE DAILY FOR 5 DAYS -- FINISH ALL MEDICINE -- 06/27 completed Not Available Not Available Not Available pantopraz ole 40 mg tablet,de layed release TAKE ONE TABLET BY MOUTH EVERY DAY active GI Not Available Not Available No t Available buspirone 30 mg tablet TAKE 1/2 TABLET BY MOUTH DAILY AT BEDTIME active Not Available Not Available No t Available esomepraz ole magnesium 40 mg capsule,d elayed release TAKE 1 CAPSULE BY MOUTH DAILY active Not Available Not Available No t Available promethaz ine 25 mg tablet TAKE 1 TABLET BY MOUTH TWICE DAILY 12/10 completed Not Available Not Available Not Available triamcino lone acetonide 0.025 % topical ointment apply a thin layer topicall y TO THE affected area(s) THREE TIMES DAILY NEEDED FOR ITCHING DIRECTED 12/10 completed Not Available Not Available Not Available nitroglyc nicholas 0.4 mg sublingua l tablet PLACE 1 TABLET UNDER TONGUE NEEDED FOR CHEST PAIN. MAY REPEAT EVERY 15 MINUTES UP TO 3 DOSES active Not Available Not Available No t Available hydrochlo rothiazid e 25 mg tablet TAKE 1 TABLET BY MOUTH TWICE DAILY active Not Available Not Available No t Available methylpre dnisolone 4 mg tablets in a dose pack FOLLOW PACKAGE DIRECTIO NS 12/10 completed Not Available Not Available Not Available albuterol sulfate HFA 90 mcg/actua tion aerosol inhaler INHALE 1 PUFF BY MOUTH TWICE DAILY FOR 3 DAYS NEEDED 11/07 completed Not Available Not Available Not Available Vitamin D2 1,250 mcg (50,000 unit) capsule Take 1 capsule every week by oral route for 90 days. 11/07 completed Not Available Not Available Not Available ondansetr on 4 mg disintegr ating tablet 08/03 completed Not Available Not Available Not Available naproxen 500 mg tablet TAKE 1 TABLET BY MOUTH EVERY 12 HOURS NEEDED 08/03 completed Not Available Not Available Not Available diazepam 5 mg tablet TAKE ONE TABLET BY MOUTH ONCE NEEDED FOR pre MRI; bring Diazepam TO MRI, notify tech, TAKE ONE TABLET 30 minutes prior TO MRI if necessar y, MAY REPEAT DOSE ONCE. Max DOSE is 2 tablets (10 MG) Must have a dedicated intermodal truck driver. Cannot drive FOR 12 hours AFTER dosing. MAY CAUSE DROWSINE SS 02/06 completed Not Available Not Available Not Available amoxicill in 875 mg-potass ium clavulana te 125 mg tablet TAKE ONE TABLET BY MOUTH EVERY TWELVE HOURS FOR 10 DAYS 02/06 completed Not Available Not Available Not Available valsartan 160 mg tablet TAKE 1 TABLET BY MOUTH TWICE DAILY active Not Available Not Available No t Available cyclobenz aprine 5 mg tablet TAKE 1 TABLET BY MOUTH THREE TIMES DAILY NEEDED FOR MUSCLE SPASM active Not Available Not Available No t Available Antacid Regular Strength 200 mg-200 mg-20 mg/5 mL oral suspensio n TAKE 10ML BY MOUTH BEFORE MEALS AND BEFORE BEDTIME NEEDED FOR INDIGEST ION FOR 5 DAYS 11/07 completed Not Available Not Available Not Available topiramat e 50 mg tablet TAKE 1 TABLET BY MOUTH EVERY DAY. CALL AND MAKE AN APPOINTM ENT WITH [facility] 12/10 completed Not Available Not Available Not Available ranolazin e ER 500 mg tablet,ex tended release,1 2 hr TAKE 1 TABLET BY MOUTH TWICE DAILY active Not Available Not Available No t Available FreeStyle Lite Meter kit USE as directed active Not Available Not Available No t Available FreeStyle Lite Strips DIRECTED TEST BLOD SUGAR 3 TIMES A DAY active Not Available Not Available No t Available omeprazol e 20 mg tablet,de layed release Take 1 tablet every day by oral route. 12/06 completed Not Available Not Available Not Available sodium,po tassium,m ag sulfates 17.5 gram-3.13 gram-1.6 gram oral soln MIX AND DRINK DIRECTED active Not Available Not Available No t Available Brilinta 90 mg tablet 08/03 completed Not Available Not Available Not Available Creon 36,000 unit-114, 000 unit-180, 000 unit capsule,d elayed release TAKE 2 CAPSULES BY MOUTH WITH MEALS AND 1 WITH SNACKS active Not Available Not Available No t Available potassium chloride ER 20 mEq tablet,ex tended release TAKE 1 TABLET BY MOUTH EVERY DAY FOR 6 DOSES 02/06 completed Not Available Not Available Not Available Jardiance 10 mg tablet Take 1 tablet every day by oral route for 90 days. 03/28 completed gave pt restless leg Not Available Not Available Not Available Ozempic 0.25 mg or 0.5 mg (2 mg/1.5 mL) subcutane ous pen injector inject 0.25mg SQ weekly x4 weeks, then inject 0.5mg SQ weekly x4 weeks 2024 active Not Available Not Available Not Avai lable Emgality Pen 120 mg/mL subcutane ous pen injector INJECT 120 MG SUBCUTAN EOUSLY ONCE A MONTH FIRST INJECTIO N TO BE ADMINIST ERED IN CLINIC FOR EDUCATIO N / TRIANING / LOADING DOSE 06/27 completed Not Available Not Available Not Available Emgality 120 mg/mL subcutane ous syringe 03/28 completed Not Available Not Available Not Available Ubrelvy 100 mg tablet TAKE 1 TABLET BY MOUTH AT ONSET OF MIGRAINE . MAY REPEAT ONCE AFTER 2 HOURS IF NEEDED max daily DOSE is 2 TABLETS 06/27 completed Not Available Not Available Not Available Wegovy 0.25 mg/0.5 mL subcutane ous pen injector inject 0.25 mg q week x4 weeks 02/05 completed Not Available Not Available Not Available Zepbound 2.5 mg/0.5 mL subcutane ous pen injector inject 2.5mg SQ q week x1 month, then 5mg SQ q week 02/05 completed Not Available Not Available Not Available Vitals Date Recorded Body height Body mass index (BMI) Body weight Heart rate Oxygen saturation Oxygen saturation in Arterial blood by Pulse oximetry Systolic And Diastolic Provider Name and Address Organization Details Last Updated DateTime 160.02 cm 34.3 kg/m2 50641.4 3 g 94 /min 97 % 97 % 125/84 mm[Hg] Shaista Colbert [employer] 5 11:57:31 Social History Question Answer Notes LastModified by Organizat ion Details LastModified Time Tobacco Smoking Status Former Smoker ROBIN ARRIETA valerie, [employer] 08/03/2023 16:20:28 Do You Have An Advance Directive? No Information not available 08/03/2023 Is Your Home Air Conditioned? Yes Information not available 08/03/2023 Do You Wear A Helmet When Biking? Yes Information not available 08/13/2023 Are You Blind Or Do You Have Difficulty Seeing? No Information not available 08/13/2023 What Is Your Level Of Caffeine Consumption? Heavy Information not available 08/13/2023 In The 14 Days Before Symptom Onset, Have You Had Close Contact With A Laboratory-confi rmed COVID-19 While That Case Was Ill? No Information not available 08/13/2023 In The 14 Days Before Symptom Onset, Have You Had Close Contact With A Person Who Is Under Investigation For COVID-19 While That Person Was Ill? No Information not available 08/13/2023 Have You Been To An Area Known To Be High Risk For COVID-19? No Information not available 08/13/2023 Are You Deaf Or Do You Have Serious Difficulty Hearing? Yes Information not available 08/13/2023 What Type Of Diet Are You Following? REGULAR Information not available 08/03/2023 Who Is Your Employer? Family [employer] Information not available 08/13/2023 How Many Days Of Moderate To Strenuous Exercise, Like A Brisk Walk, Did You Do In The Last 7 Days? 0 Information not available 08/13/2023 Have There Been Any Changes To Your Family Or Social Situation? Yes Information not available 08/13/2023 When Did You Quit Smoking? 1-5yearssincel astcigarette Stopped 1 Month Information not available 08/03/2023 Are There Any Guns Present In Your Home? Yes Information not available 08/13/2023 Which Of Your Hands Is Dominant? Right Information not available 08/13/2023 What Is Your Home Situation? Other Information not available 08/13/2023 Do You Have A Medical Power Of Hospital Food Service Worker? No Information not available 08/03/2023 What Was The Date Of Your Most Recent Tobacco Screening? 05/08/2025 Information not available 05/08/2025 Are There Any Occupational Health Risks Where You Work? [employer] Information not available 08/13/2023 What Is Your Current Pack Years? 10packyears Information not available 08/13/2023 Do You Have Any Pets? Yes Information not available 08/13/2023 Do You Use Protection During Sex? No Information not available 08/13/2023 What Is Your Relationship Status? Domestic Partner Information not available 08/13/2023 Have You Repeated Any Grades? Yes Information not available 08/13/2023 Do You Use Your Seat Belt Or Car Seat Routinely? Yes Information not available 08/03/2023 Are You Sexually Active? Yes Information not available 08/13/2023 Do You Have Any Siblings? Yes Information not available 08/13/2023 Do You Have Smoke And Carbon Monoxide Detectors In Your Home? No Information not available 08/13/2023 At What Age Did You Start Smoking Tobacco? 15 Information not available 08/13/2023 Are You Passively Exposed To Smoke? Yes Information not available 08/03/2023 Are There Any Smokers In Your House? Yes Information not available 08/03/2023 How Much Tobacco Do You Smoke? 0.5 PPD Information not available 08/13/2023 Do You Use Sunscreen Routinely? Yes Information not available 08/13/2023 Has Tobacco Cessation Counseling Been Provided? Yes Information not available 12/28/2023 On What Date Was Tobacco Cessation Counseling Provided? 05/08/2025 Information not available 05/08/2025 How Many Years Have You Smoked Tobacco? 30 Information not available 08/13/2023 Have You Recently Traveled Abroad? No Information not available 08/13/2023 Do You Have Difficulty Walking Or Climbing Stairs? Yes Information not available 08/13/2023 Do You Have Any Dietary Restrictions? No Information not available 08/13/2023 Sex: Female Functional Status Question Answer Note LastModified by Organizat ion Details LastModified Time Do you use any illicit or recreational drugs? No Information not available 08/03/2023 Do you or have you ever used any other forms of tobacco or nicotine? No Information not available 08/13/2023 What is your level of alcohol consumption? None Information not available 08/13/2023 Are you currently employed? Yes Information not available 08/13/2023 Do you have transportation difficulties? No Information not available 08/13/2023 Are you able to walk? YESWOREST Information not available 08/13/2023 Do you have difficulty doing errands alone? No Information not available 08/13/2023 Are you able to care for yourself? Yes Information n ot available 08/13/2023 Do you have difficulty dressing or bathing? No Information not available 08/13/2023 What is your exercise level? Occasional Information not available 08/13/2023 Mental Status Question Answer Note LastModified by Organization D etails LastModified Time Do you have difficulty concentrating, remembering or making decisions? No Information no t available 08/13/2023 Are you or have you been involved with bullying? Yes Information not available 08/13/2023 Family History Relationship Description Onset Age of this Age Resolved Age Notes LastModified by Organization Details LastModified Time Mother Anxiety disorder gage Not available 2022 13:13:57 Father Hypercholest erolemia gage Not available 2022 13:13:57 Father Hypertensive disorder gage Not available 2022 13:13:57 Father Heart disease gage Not available 2022 13:13:57 Medical History Condition Response Anxiety Disorder Y High Cholesterol Y Hospitalizations N Acid Reflux (GERD) Y Emergency room visit since last appointm ent. N Headaches Y Hypertension Y Gynecological History Statement/Question Response Date of Last Pap Smear Most Recent Mammogram 01/04/2024 Obstetrics History GPAL:G 0 P 0 0 0 0 Immunizations Vaccine Type Date Status Note Provider Nam e and Address Organization Details Recorded Time Influenza, split virus, quadrivalent, preservative 9 completed JODIE KOHLER null, [employer] 11/07/2023 16:27:15 Tdap 0 completed JODIE KOHLER null, [employer] 11/07/2023 16:27:15 Influenza, high-dose, trivalent, PF 5 completed JODIE KOHLER null, [employer] 11/07/2023 16:27:15 Influenza, split virus, trivalent, preservative 2 completed JODIE KOHLER null, [employer] 11/07/2023 16:27:15 Influenza, split virus, trivalent, preservative 0 completed JODIE KOHLER null, [employer] 11/07/2023 16:27:15 Hep B, adult 1 completed JODIE KOHLER null, [employer] 11/07/2023 16:27:15 Hep A, adult 9 completed JODIE KOHLER null, [employer] 11/07/2023 16:27:15 Influenza, split virus, quadrivalent, PF 8 completed JODIE KOHLER null, [employer] 11/07/2023 16:27:15 Influenza, split virus, quadrivalent, PF 6 completed JODIE KOHLER null, [employer] 11/07/2023 16:27:15 Past Encounters Encounter ID Performer Location Encounter Start Date Encounter Closed Date Diagnosis/Indication Diagnosis SNOMED-CT Code Diagnosis ICD10 Code Diagnosis Note [id number] Laura Cobian APRN [address] [address] 05/08/2025 11:34:51 05/08/2025 12:10:16 Type 2 diabetes mellitus 39675253 E11.9 Fatigue 83330926 R53.83 Essential hypertension 04619900 I10 Body mass index 30+ - obesity 827272602 Z68.34 Health Concerns Section Related Observation LastModified by Organization Detai ls LastModified Time None Recorded Concern Status LastModified by Organization Details LastModified Time None Recorded Payers Encounter Date Sequence Insurance Name Policy Number Policy Anand Covered Member ID Anand Member ID Guarantor Name 05/08/2025 1 [employer] [facility] (MEDICAID HMO) Donya Jeronimo [id number] Donya Jeronimo Notes Date Note Type Note Provider Name and Address Organization Details Recorded Time 05/08/2025 text/html pt here today fo r medication refills. pt states shes doing well on current medication regime. A1C 6.7, 7.6 at last visit. pt states that she is tolerating ozempic well. pt states that this am she felt nauseated and skaky. states that her glucometer keeps saying it needs a new battery but she has put a new battery in it. she at a peanut butter and cracker and felt better. diabetic foot exam WNL. ordered eye exam. Laura Cobian APRN [address] [facility] [place], [place], [address], [facility] [employer] 05/08/2025 12:52:02 OBGyn Episode No OBEpisode recorded.
--- OUTSIDE RECORDS SUMMARY | 2025-06-09 12:01 | XMS_ITS | Encounter Summary ---
Author Organization [facility] Address [address] [place] [address] Care Team Providers Care Electric Power Line Examiner Name Role Phone Karime Pinto APRN, DNP Primary Care Provider + Reason for Visit * Reason Comments Med Refill Encounter Details Date Type Department Care Team (Late st Contact Info) Description 07/05/2021 Refill Lorna Bee [address] [phone] Karime Pinto APRN, DNP [address] [place] [phone] Social History Tobacco Use Types Packs/Day Years Used Date Smoking Tobacco: Every Day Smokeless Tobacco: Never Alcohol Use Standard Drinks/Week Comments Never 0 (1 standard drink = 0.6 oz pur e alcohol) Comments Unknown Sex and Gender Information Value Date Recorded Sex Assigned at Not on file Legal Sex Female 8:21 PM EDT Gender Identity Not on file Sexual Orientation Not on file documented as of this encounter Miscellaneous Notes * Telephone Encounter - Margi Pinedo RN - 07/06/2021 4:42 PM EDT Patient has been advised multiple times that she needs a visit for refills. Multiple no shows for appointments. documented in this encounter Plan of Treatment Not on file documented as of this encounter Visit Diagnoses Not on filedocumented in this encounter Additional Health Concerns Assessment Noted Time A fall risk assessment has been complete d for the patient 05/24/2021 3:18 PM EDT documented as of this encounter Care Teams Electric Power Line Examiner Relationship Specialty Start Date End Date Karime Pinto APRN, CHARLEY [address] [place] [phone] PCP - General 04/08/21 08/23/21 documented as of this encounter
--- OUTSIDE RECORDS SUMMARY | 2025-06-09 12:01 | XMS_ITS | Data Portability ---
Author Organization [facility] & [facility] [place] Address [address] [place] [address] Care Team Providers Care Revit Drafter Name Role Phone NOHEMY OROZCO Primary Care Provider [phone] Assessment No assessment recorded. Plan of Treatment Reminders Order Date Submit Date Provider Last Modified By Organization Details Last Modified Time Details Appointments None recorded. Lab None recorded. Referral None recorded. Procedures None recorded. Surgeries None recorded. Imaging RF, upper gastrointe stinal tract, w/ contrast PO 2023 024 [facility] (Central Scheduling), [address] [place] [address] [place], [address], 4 10:00:07 XR, chest, 2 view - +Covid 1 month ago with pna, still coughing, dyspnea on exertion 2022 023 [facility] (Central Scheduling), [address] [place] [address] [place], [address], 3 18:55:11 Medication Orders prednisone 10 mg tablet 2024 025 [id number], [address] [place], [id number], 5 16:57:28 methylpred nisolone acetate 80 mg/mL suspension for injection 2024 025 [email or web address] Not available 5 18:04:01 albuterol sulfate HFA 90 mcg/actuat ion aerosol inhaler 2022 023 [email or web address] [id number], [address] , [place], [place], [id number], 19:51:00 Patient TargetsNo targets recorded. Patient Instructions Encounter Date Encounter Id Patient Instructions Last Modified By Organization Details Last Modified Time 08/28/2023 [id number] Patient/guardian verbalizes understanding of and agreement with the plan of care. I have reviewed the Past medical, Family and Social Histories along with ROS and all orders in today's record, and have noted any changes. Parts of this document were prepared using voice recognition software and may contain unrecognized dictation errors and word substitutions commonly found with electronic geophysical prospecting permit agent. Attempts have been made to correct errors during dictation, but some errors may remain. It should not be considered a word for word legal document, but is a record created to help myself and others care for the patient. I reserve the right to interpret this document as I believe it was intended and not necessarily the way it was transcribed. [email or web address] Not available 08/28/2023 17:31:17 04/16/2025 [id number] Patient educatio n given. Staff administered Depo Medrol and she tolerated the injection well. Take/use medicine as Rx. Encouarged RICE, warm compresses and gentle stretching. Continue to increase rest, hydration and supportive care. F/u with PCP if symptoms persist. Go to the ED if symptoms become severe. Patient agrees with the plan. [email or web address] Not available 04/22/2025 07:05:10 I have reviewed the Past medical, Family and Social Histories along with ROS and all orders in today's record, and have noted any changes. [email or web address] Not available 04/16/2025 16:39:39 Reason for Referral None Reported. Results Created Date Observation Date Name Description Value Unit Range Abnormal Flag Note LastModifiedBy Organization Detail LastModifiedTime 08/28/2008/28/2023 XR, chest , 2 view [facility] [address] [place] [address] (Phone ) DIAGNO STIC IMAGIN G REPORT ------ ------ ------ ------ ------ ------ ------ ------ ----- Elhamabdi adams Name: DONYA MCNEIL No: [id number] Medica l Record No: [id number] Date of : 1974 Access ion No: [id number] Date of Exam: 2022 Epi adams Type: Outpat ient Orderi ng Physic felecia: CHRISTOPHER ISAAC ------ ------ ------ ------ ------ ------ ------ ------ ----- FINAL REPORT PROCED URE: CHEST PA AND LAT TECHNI QUE: null CLINIC AL HISTOR Y: +COVID 1 month ago with pna, still coughi ng, dysnea on exert COMPAR LIZBETH: null FINDIN GS: 2 view chest x-ray Compar lizbeth: DX - PORTAB LE CHEST - 2022 01:39 AM EDT Findin gs: No consol idatio n or effusi on. No pneumo thorax . Heart size is normal . No pulmon dalia vascul ar conges tion. No acute fractu re. IMPRES LETA: IMPRES LETA: No acute findin gs. Authen ticate d and Electr onical ly Signed by Trent Saldaña MD on 2022 06:51: 34 PM ELI Nix CC'ed Logic: Orderi ng Provid er: MARLIN WHITE CC Provid er: PAM TOWNSEND Attend ing Provid er: MARLIN WHITE Referr ing Provid er: MARLIN WHITE Admitt ing Provid er: MARLIN graham [facility] (Central Scheduling) [address] [place] [address] [place], [address], 08/28/2023 19:31:33 Result Notes Documentation Provider Name and Address Organization Details Recorded Time Xr, Chest, 2 View : [address] [address] (Phone) DIAGNOSTIC IMAGING REPORT --- Patient Name: DONYA JERONIMO Patient No: [id number] Date of : 1975 Accession No: [id number] Date of Exam: 08/28/2023 Patient Type: Outpatient Ordering Physician: CHRISTOPHER ISAAC --- FINAL REPORT PROCEDURE: CHEST PA AND LAT TECHNIQUE: null CLINICAL HISTORY: +COVID 1 month ago with pna, still coughing, dysnea on exert COMPARISON: null FINDINGS: 2 view chest x-ray Comparison: DX - PORTABLE CHEST - 07/29/2023 01:39 AM EDT Findings: No consolidation or effusion. No pneumothorax. Heart size is normal. No pulmonary vascular congestion. No acute fracture. IMPRESSION: IMPRESSION: No acute findings. Authenticated and [facility]ed Logic: Ordering Provider: MARLIN WHITE Provider: PAM SLATER Attending Provider: MARLIN WHITE Referring Provider: MARLIN WHITE Admitting Provider: MARLIN Fair [facility], [place] - [facility] - [place] & [place] 08/28/2023 19:31:33 Problems Name Problem SNOMED Code Status Onset Date Resolution Date Notes Provider Name and Address Organization Details Recorded Time Gastro-esophag eal reflux disease with esophagitis 290709776 Active 2023 Angie Swanson NP [address], [address], [place], [address], [place] - [facility] - [place] & [place] 16:09:12 Non-cardiac chest pain 438263853 Active 2023 Angie Swanson NP [address], [address], [place], [address], [place] - [facility] & [place] 4 16:11:00 Chronic idiopathic constipation 54420008 Active 2023 Angie Swanson NP [address], [place], [address], [place] [facility] & [place] 4 16:15:04 Problem Notes None recorded. Medical Equipment None Reported. Allergies Allergen ID Allergen Name Allergen Category Reaction Reaction Severity Criticality Documentation Date Start Date Code Code System Note Provider Name and Address Organization Details Recorded Time 42815 Substance with sulfonami de structure and antibacte rial mechanism of action (substanc e) medicatio n Not available Not available Not available 08/28/2023 97676 8003 SNOMED Breanne padilla [facility] & [place] 3 17:18:16 73758 lisinopri l medicatio n Not available Not available Not available 08/28/2023 39536 RxNorm [place] [facility] & [place] 3 17:18:23 80721 acetamino phen / oxycodone medicatio n Not available Not available Not available 08/28/2023 28186 3 RxNorm [place] [facility] & [place] 3 17:18:28 Medications Name Sig Start Date Stop Date Status Note LastModified by Organization Details LastModified Time senna-s 8.6mg-50mg tablets TAKE 2 TABLET BY MOUTH AT NIGHT NEEDED FOR CONSTIPAT ION FOR UP TO 7 DAYS active Not Available Not Available No t Available cyclobenzap rine 10 mg tablet TAKE 1 TABLET BY MOUTH THREE TIMES DAILY NEEDED FOR MUSCLE SPASM active Not Available Not Available No t Available furosemide 40 mg tablet TAKE 1/2 TABLET BY MOUTH EVERY DAY 04/16 completed Not Available Not Available Not Available methocarbam ol 500 mg tablet TAKE 2 TABLETS BY MOUTH EVERY 8 HOURS NEEDED active Not Available Not Available No t Available metformin 500 mg tablet TAKE ONE TABLET BY MOUTH TWICE DAILY with meals 04/16 completed Not Available Not Available Not Available atorvastati n 80 mg tablet TAKE 1 TABLET BY MOUTH DAILY active Not Available Not Available No t Available prednisone 10 mg tablet Take 1 tablet twice a day by oral route as directed for 3 days. 2024 active Not Available Not Available Not Avai lable doxycycline hyclate 100 mg capsule Take 1 capsule twice a day by oral route. 08/28 completed Not Available Not Available Not Available azithromyci n 250 mg tablet TAKE 1 TABLET BY MOUTH EVERY DAY 08/28 completed Not Available Not Available Not Available ibuprofen 800 mg tablet TAKE 1 TABLET BY MOUTH EVERY 12 HOURS NEEDED active Not Available Not Available No t Available Lidocaine Viscous 2 % mucosal solution TAKE 5ML BY MOUTH BEFORE MEALS AND BEFORE BEDTIME NEEDED FOR PAIN active Not Available Not Available No t Available metoprolol succinate ER 50 mg tablet,exte nded release 24 hr TAKE 1 TABLET BY MOUTH EVERY DAY active Not Available Not Available No t Available hydrocodone 5 mg-acetamin ophen 325 mg tablet TAKE 1 TABLET BY MOUTH EVERY 6 HOURS NEEDED FOR SEVERE PAIN 04/16 completed Not Available Not Available Not Available sucralfate 1 gram tablet TAKE 1 TABLET BY MOUTH EVERY 6 HOURS NEEDED FOR DYSPEPSIA active Not Available Not Available No t Available FreeStyle Lancets 28 gauge USE THREE TIMES DAILY as directed active Not Available Not Available No t Available ondansetron HCl 4 mg tablet TAKE 1 TABLET BY MOUTH EVERY 4 TO 6 HOURS NEEDED active Not Available Not Available No t Available prednisone 20 mg tablet TAKE 1 TABLET BY MOUTH EVERY DAY FOR 5 DAYS active Not Available Not Available No t Available isosorbide mononitrate ER 30 mg tablet,exte nded release 24 hr TAKE 1 TABLET BY MOUTH DAILY active Not Available Not Available No t Available metoprolol succinate ER 100 mg tablet,exte nded release 24 hr TAKE 1 TABLET BY MOUTH EVERY DAY active Not Available Not Available No t Available glipizide ER 5 mg tablet, extended release 24 hr TAKE 1 TABLET BY MOUTH EVERY DAY active Not Available Not Available No t Available clindamycin HCl 150 mg capsule TAKE 1 CAPSULE BY MOUTH FOUR TIMES DAILY FOR 7 DAYS 04/16 completed Not Available Not Available Not Available hydroxyzine pamoate 50 mg capsule TAKE 1 CAPSULE BY MOUTH THREE TIMES DAILY NEEDED FOR ANXIETY active Not Available Not Available No t Available valsartan 80 mg tablet TAKE ONE TABLET BY MOUTH TWICE DAILY active Not Available Not Available No t Available hydralazine 25 mg tablet TAKE 1 TABLET BY MOUTH THREE TIMES DAILY NEEDED FOR HYPERTENS ION active Not Available Not Available No t Available amlodipine 2.5 mg tablet TAKE ONE TABLET BY MOUTH EVERY DAY 04/16 completed Not Available Not Available Not Available clopidogrel 75 mg tablet TAKE 1 TABLET BY MOUTH DAILY active Not Available Not Available No t Available amlodipine 5 mg tablet TAKE 1 TABLET BY MOUTH DAILY active Not Available Not Available No t Available ciprofloxac in 500 mg tablet TAKE ONE TABLET BY MOUTH EVERY TWELVE HOURS FOR 7 DAYS active Not Available Not Available No t Available omeprazole 40 mg capsule,del ayed release Take 1 capsule every day by oral route. 07/30 completed Not Available Not Available Not Available aspirin 81 mg tablet,adriel yed release TAKE 1 TABLET BY MOUTH DAILY active Not Available Not Available No t Available spironolact one 25 mg tablet TAKE 1 TABLET BY MOUTH TWICE DAILY active Not Available Not Available No t Available ketorolac 10 mg tablet TAKE 1 TABLET BY MOUTH EVERY 6 HOURS NEEDED FOR MODERATE PAIN 04/16 completed Not Available Not Available Not Available methylpredn isolone acetate 80 mg/mL suspension for injection Take 80 mg by injection route. 2024 active Not Available Not Available Not Avai lable nortriptyli ne 25 mg capsule TAKE 1 CAPSULE BY MOUTH EVERY NIGHT. SCHEDULE AN APPOINTME NT FOR FUTRTHER REFILLS. 04/16 completed Not Available Not Available Not Available meloxicam 7.5 mg tablet TAKE 1 TABLET BY MOUTH DAILY 08/28 completed Not Available Not Available Not Available isosorbide mononitrate ER 60 mg tablet,exte nded release 24 hr TAKE ONE TABLET BY MOUTH EVERY DAY active Not Available Not Available No t Available potassium chloride ER 20 mEq tablet,exte nded release(par t/cryst) TAKE ONE TABLET BY MOUTH TWICE DAILY 04/16 completed Not Available Not Available Not Available famotidine 20 mg tablet TAKE 1 TABLET BY MOUTH TWICE DAILY 04/16 completed Not Available Not Available Not Available amlodipine 10 mg tablet TAKE 1 TABLET BY MOUTH EVERY DAY 04/16 completed Not Available Not Available Not Available benzonatate 100 mg capsule TAKE 1 TO 2 CAPSULES BY MOUTH THREE TIMES DAILY FOR 10 DAYS NEEDED 08/28 completed Not Available Not Available Not Available hydrocodone 7.5 mg-acetamin ophen 325 mg tablet TAKE 1 TABLET BY MOUTH EVERY 6 HOURS NEEDED 04/16 completed Not Available Not Available Not Available cephalexin 500 mg capsule TAKE ONE CAPSULE BY MOUTH TWICE DAILY FOR 5 DAYS -- FINISH ALL MEDICINE -- 04/16 completed Not Available Not Available Not Available pantoprazol e 40 mg tablet,adriel yed release TAKE ONE TABLET BY MOUTH EVERY DAY 07/30 completed Not Available Not Available Not Available buspirone 30 mg tablet TAKE 1/2 TABLET BY MOUTH DAILY AT BEDTIME active Not Available Not Available No t Available esomeprazol e magnesium 40 mg capsule,del ayed release TAKE 1 CAPSULE BY MOUTH DAILY active Not Available Not Available No t Available promethazin e 25 mg tablet TAKE 1 TABLET BY MOUTH TWICE DAILY active Not Available Not Available No t Available triamcinolo ne acetonide 0.025 % topical ointment apply a thin layer topically TO THE affected area(s) THREE TIMES DAILY NEEDED FOR ITCHING DIRECTED active Not Available Not Available No t Available nitroglycer in 0.[address] 1 TABLET UNDER TONGUE NEEDED FOR CHEST PAIN. MAY REPEAT EVERY 15 MINUTES UP TO 3 DOSES active Not Available Not Available No t Available hydrochloro thiazide 25 mg tablet TAKE 1 TABLET BY MOUTH DAILY 04/16 completed Not Available Not Available Not Available methylpredn isolone 4 mg tablets in a dose pack FOLLOW PACKAGE DIRECTION S active Not Available Not Available No t Available albuterol sulfate HFA 90 mcg/actuati on aerosol inhaler INHALE 1 PUFF BY MOUTH TWICE DAILY FOR 3 DAYS NEEDED active Not Available Not Available No t Available Vitamin D2 1,250 mcg (50,000 unit) capsule Take 1 capsule every week by oral route for 90 days. active Not Available Not Available No t Available ondansetron 4 mg disintegrat ing tablet active Not Available Not Available N ot Available naproxen 500 mg tablet TAKE 1 TABLET BY MOUTH EVERY 12 HOURS NEEDED 08/28 completed Not Available Not Available Not Available diazepam 5 mg tablet TAKE ONE TABLET BY MOUTH ONCE NEEDED FOR pre MRI; bring Diazepam TO MRI, notify tech, TAKE ONE TABLET 30 minutes prior TO MRI if necessary , MAY REPEAT DOSE ONCE. Max DOSE is 2 tablets (10 MG) Must have a frontload driver. Cannot drive FOR 12 hours AFTER dosing. MAY CAUSE DROWSINES S 04/16 completed Not Available Not Available Not Available amoxicillin 875 mg-potassiu m clavulanate 125 mg tablet TAKE ONE TABLET BY MOUTH EVERY TWELVE HOURS FOR 10 DAYS 04/16 completed Not Available Not Available Not Available valsartan 160 mg tablet TAKE 1 TABLET BY MOUTH TWICE DAILY active Not Available Not Available No t Available cyclobenzap rine 5 mg tablet TAKE 1 TABLET BY MOUTH THREE TIMES DAILY NEEDED FOR MUSCLE SPASM active Not Available Not Available No t Available Antacid Regular Strength 200 mg-200 mg-20 mg/5 mL oral suspension TAKE 10ML BY MOUTH BEFORE MEALS AND BEFORE BEDTIME NEEDED FOR INDIGESTI ON FOR 5 DAYS active Not Available Not Available No t Available topiramate 50 mg tablet TAKE 1 TABLET BY MOUTH EVERY DAY. CALL AND MAKE AN APPOINTME NT WITH DISCARD REMAINDER . VIKA 04/16 completed Not Available Not Available Not Available ranolazine ER 500 mg tablet,exte nded release,12 hr TAKE 1 TABLET BY MOUTH TWICE DAILY active Not Available Not Available No t Available FreeStyle Lite Meter kit USE as directed active Not Available Not Available No t Available FreeStyle Lite Strips USE DIRECTED TO TEST BLOOD SUGAR 3 TIMES A DAY active Not Available Not Available No t Available sodium,pota ssium,mag sulfates 17.5 gram-3.13 gram-1.6 gram oral soln MIX AND DRINK DIRECTED active Not Available Not Available No t Available Brilinta 90 mg tablet 08/28 completed Not Available Not Available Not Available Creon 36,000 unit-114,00 0 unit-180,00 0 unit capsule,del ayed release TAKE 2 CAPSULES BY MOUTH WITH MEALS AND 1 WITH SNACKS active Not Available Not Available No t Available potassium chloride ER 20 mEq tablet,exte nded release TAKE 1 TABLET BY MOUTH EVERY DAY FOR 6 DOSES 04/16 completed Not Available Not Available Not Available Jardiance 10 mg tablet Take 1 tablet every day by oral route for 90 days. 04/16 completed Not Available Not Available Not Available Emgality Pen 120 mg/mL subcutaneou s pen injector INJECT 120 MG SUBCUTANE OUSLY ONCE A MONTH FIRST INJECTION TO BE ADMINISTE RED IN CLINIC FOR EDUCATION / TRIANING / LOADING DOSE 04/16 completed Not Available Not Available Not Available Emgality 120 mg/mL subcutaneou s syringe INJECT 120 MG SUBCUTANE OUSLY ONCE a MONTH 04/16 completed Not Available Not Available Not Available Ubrelvy 100 mg tablet TAKE 1 TABLET BY MOUTH AT ONSET OF MIGRAINE. MAY REPEAT ONCE AFTER 2 HOURS IF NEEDED max daily DOSE is 2 TABLETS active Not Available Not Available No t Available Vitals Date Recorded Body height Body mass index (BMI) Body weight Body temperature Oxygen saturation Oxygen saturation in Arterial blood by Pulse oximetry Heart rate Systolic And Diastolic Provider Name and Address Organization Details Last Updated DateTime 5 149.86 cm 39.6 kg/m2 80744.1 g 97.3 [degF] 98 % 98 % 90 /min 130/80 mm[Hg] Arina Harkins [facility] & [place] 5 16:33:45 Date Recorded Body height Body mass index (BMI) Body weight Body temperature Oxygen saturation Oxygen saturation in Arterial blood by Pulse oximetry Heart rate Provider Name and Address Organization Details Last Updated DateTime 4 149.86 cm 36.4 kg/m2 52233.6 3 g 97.2 [degF] 98 % 98 % 71 /min Kamilah Meng [facility] & [place] 4 15:37:14 Date Recorded Body height Body mass index (BMI) Body weight Body temperature Oxygen saturation Oxygen saturation in Arterial blood by Pulse oximetry Heart rate Systolic And Diastolic Provider Name and Address Organization Details Last Updated DateTime 3 149.86 cm 35 kg/m2 55335.2 8 g 97.5 [degF] 99 % 99 % 95 /min 118/78 mm[Hg] Breanne Fair [facility] & [place] 3 17:18:03 Social History None recorded. Functional Status None recorded. Mental Status None recorded. Family History Relationship Description Onset Age of this Age Resolved Age Notes LastModified by Organization Details LastModified Time Mother Disorder of endocrine system pt. added direct ly (08/28) [email or web address] Not available 08/28/2023 17:22:38 Father Myocardial infarction pt. added direct ly (08/28) [email or web address] Not available 08/28/2023 17:23:02 Maternal Grandmother Disorder of endocrine system pt. added direct ly (08/28) [email or web address] Not available 08/28/2023 17:23:12 Maternal Grandmother Hearing loss pt. added direct ly (08/28) [email or web address] Not available 08/28/2023 17:23:30 Maternal Grandmother Hypertensive disorder pt. added direct ly (08/28) [email or web address] Not available 08/28/2023 17:23:49 Paternal Grandmother Disorder of endocrine system pt. added direct ly (08/28) [email or web address] Not available 08/28/2023 17:24:26 Paternal Grandfather Disease of liver pt. added direct ly (08/28) [email or web address] Not available 08/28/2023 17:24:40 Medical History No medical history recorded. Gynecological HistoryNo gynecological history recorded. Obstetrics History GPAL:G 0 P 0 0 0 0 Past Encounters Encounter ID Performer Location Encounter Start Date Encounter Closed Date Diagnosis/Indication Diagnosis SNOMED-CT Code Diagnosis ICD10 Code Diagnosis Note [id number] Christopher Isaac APRN [facility] Immediate Care- Floor 1, [address] [place] [address] Drive,[facility] [address] [place] [address] 08/28/2023 17:03:49 08/28/2023 17:38:45 Cough 71156983 R05.2 We will contact with results of CXR when available. Recommend increase fluid intake (especiall y water). Cool mist humidifier at bedside at night to help loosen mucus. Recommend nasal washes daily, allergy medication and nasal spray for symptom management . May use Tylenol as needed for fever/pain ; cough/cold remedies PRN. Follow-up with PCP if no improvemen t in 7 days, sooner with worsening symptoms. Dyspnea on exertion 6084 5006 R06.09 Use inhaler as directed. Report to the ED with severe symptoms. History of SARS-CoV-2 29 44709397 90124648 Z86.16 [id number] Angie Swanson NP [facility] [address] [place] [address] [place] [id number] 07/29/2024 15:07:13 07/30/2024 16:10:37 Gastro-esophageal reflux disease with esophagitis 440721027 K21.00 Currently prescribed Esomeprazo le 40 mg daily for treatment. Recommend continued use as prescribed . Recommend continued reflux precaution s. Previously failed treatment with omeprazole and pantoprazo le. Non-cardia c chest pain 879217279 R07.89 One year history midsternal chest pain comes and goes. No regard to food. No nausea or vomiting. She has followed up with Cardiology , Dr. Reyes. She previously followed with GI, Dr. Barajas and reports recent EGD. I do not have those records to review today, they have been requested for review. Recommend UGI with esophagram to further evaluate. Chronic id iopathic constipation 10792098 K59.04 Recommend daily use of miralax for treatment. [id number] Tamiko Silverio [facility] Im[facility]- Floor [address], [address] [place] [address] 04/16/2025 15:38:08 04/16/2025 17:03:51 Acute back pain with sciatica 591747041 M54.42 Health Concerns Section Related Observation LastModified by Organization Detai ls LastModified Time None Recorded Concern Status LastModified by Organization Details LastModified Time None Recorded Advance Directives Directive None Recorded Payers Insurance Date Sequence Insurance Name Policy Number Policy Anand Covered Member ID Anand Member ID Guarantor Name 04/22/2025 1 [facility] (MEDICAID HMO) Donya Jeronimo [id number] Donya Jeronimo Notes Date Note Type Note Provider Name and Address Organization Details Recorded Time 08/28/2023 text/html 48-year-old fema le accompanied a male rehab specialist presents complaints of a productive cough and shortness breath for 1 month; she was diagnosed with COVID 1 month ago developed COVID pneumonia. She continues with Right sided back pain, reports SOB with activity and lingering fatigue. She was unable to take the antivirals due to recommendations by her PCP but reports she has been treated with ?antibiotic. She has been using her incentive spirometer without relief, completed the antibiotics as directed. She has been using a heating pad and warm drinks without relief. She denies fever, chills, B/B changes and other complaints today. Christopher Isaac APRN [address], [address], [place], [address], [facility] - [facility] - [place] & [place] 09/03/2023 19:53:43 07/29/2024 text/html 49 yo female wit h a past medical history CAD S/P stent placement, diabetes, hypertension, hyperlipidemia, and GERD. Patient presents today with complaints of non-cardiac chest pain. Symptoms ongoing for the past year. Describes mid sternal chest pressure that comes and goes, no regard to food. It has radiated to her back during a single episode. No nausea or vomiting. Currently prescribed Esomeprazole for treatment of GERD. Denies symptoms at this time. She had been prescribed Omeprazole and Pantoprazole in the past. She was previously established with GI, Dr. Barajas, and reports recent EGD. Also reports a prior diagnosis of EPI by Dr. Barajas, prescribed Creon. She does report underlying constipation, bowel movements every 3 days for which she treats with miralax prn. She continues to follow with Cardiology, Dr. Reyes. Angie Swanson, KARTHIK [address] [place] [address], [address], [place], [address], [facility] & [place] 07/30/2024 14:02:57 04/16/2025 text/html 49 y/o female presents to the clinic after developing progressively worsening atraumatic L low back/hip pain over the last two weeks. Patient reports the pain is very sharp and intermittently radiates around her hip and into her LLE. Patient notes having intermittent, brief episodes of numbness of the LLE. Patient states the pain is positional in nature and is exacerbated with walking, standing or laying on the R side. Patient states she had a fall and fractured her R foot (months ago) and she's been favoring her LLE while walking ever since. Patient has attempted Flexeril (from a different [facility]) without any relief. Denies fever/ chills, pain with urination/ urinary frequency/urgency, abdominal pain. Patient has attempted Tylenol without much relief. Heat has helped slightly. No other complaints. Faisal Fernandez PA-C [address] [place] [address] Drive, [address], [place], [address], [facility] & [place] 04/22/2025 07:05:32 OBGyn Episode No OBEpisode recorded.
--- OUTSIDE RECORDS SUMMARY | 2025-06-09 12:01 | XMS_ITS | Clinical Summary ---
Author Organization [facility] Address [address] [place] [address] Care Team Providers Care Assembler Final Name Role Phone Unavailable Primary Care Provider Unavailabl e Allergies Active Allergy Reactions Criticality Noted Date Comments Ketorolac Tromethamine Unknown - Patient states they do not know rxn details Low 07/10/2016 Lisinopril Unknown - Patient st ates they do not know rxn details Low 08/28/2016 Oxycodone-Acetaminophen Unknown - Patien t states they do not know rxn details Low 07/06/2017 Sulfacetamide Unknown - Patient st ates they do not know rxn details Low 04/01/2015 Medications albuterol (5 MG/ML) 0.5% nebulizer solution 03/09/2021 Active albuterol (Ventolin HFA) 108 (90 Base) MCG/ACT inhaler INHALE 2 PUFFS EVERY 4-6 HOURS NEEDED. 08/28/2019 Active amLODIPine (Norvasc) 10 MG tablet TAKE 1 TABLET DAILY DIRECTED. 03/11/2021 Active fluticasone (Flonase) 50 MCG/ACT nasal spray USE 2 SPRAYS IN EACH NOSTRIL ONCE DAILY 02/23/2021 Active fluticasone (Flovent HFA) 110 MCG/ACT inhaler INHALE 2 PUFFS TWICE DAILY. 08/28/2019 Active hydroCHLOROthia zide (HYDRODiuril) 25 MG tablet 1T PO QD 03/11/2021 Active metoprolol succinate XL (Toprol-XL) 50 MG 24 hr tablet TAKE 1 TABLET DAILY. 03/11/2021 Active Pharmacist Choice Lancets misc FOUR TIMES DAILY TESTING 11/02/2020 Active Glucose Blood (FlirqUCH ULTRA BLUE ) TEST 3 TIMES DAILY. 10/08/2019 Active Active Problems No known active problems Immunizations Immunization Administration Dates Next Due Hep A, Adult 08/28/2019 Influenza, injectable, quadrivalent 08/28/2019 Influenza, injectable, quadrivalent, preservativ e free 12/26/2017 Family History Medical History Relation Name Comments Hypertension Other Relation Name Status Comments Other Social History Tobacco Use Types Packs/Day Years Used Date Smoking Tobacco: Every Day Smokeless Tobacco: Never Tobacco Cessation:Ready to Q uit: No; Counseling Given: No Alcohol Use Standard Drinks/Week Comments Never 0 (1 standard drink = 0.6 oz pur e alcohol) Comments Unknown Sex and Gender Information Value Date Recorded Sex Assigned at Not on file Legal Sex Female 8:21 PM EDT Gender Identity Not on file Sexual Orientation Not on file Last Filed Vital Signs Vital Sign Reading Time Taken Comments Blood Pressure 127/88 12/14/2021 11:45 AM EST Pulse 79 12/14/2021 11:45 AM EST Temperature 36.9 C (98.5 F) 12/14/2021 11:45 AM EST Respiratory Rate 16 05/11/2021 3:22 PM EDT Oxygen Saturation 96% 12/14/2021 11:45 AM EST Inhaled Oxygen Concentration - - Weight 72.6 kg (160 lb) 12/14/2021 11:45 AM EST Height 149.9 cm (4' 11 ) 12/14/2021 11:45 AM EST Body Mass Index 32.32 12/14/2021 11:45 AM EST Plan of Treatment Health Maintenance Due Date Last Done Comments [facility]-Depression Screening 1975 [facility]-/Child/Adol SDOH Screenings 1975 [facility]- SDOH Screenings 1993 [facility]-Adult SDOH Screenings 1993 [facility]-Pap Smear 1996 [facility]-Hepatitis B Vaccines (2 of 3 - 19+ 3-dose series) 11/11/2001 10/14/2001 [facility]-Cervical Cancer Screening 2005 [facility]-HPV/Cotest 2005 [facility]-DTaP,Tdap,and Td Vaccines (2 - Td or Tdap) 04/30/2020 04/30/2010 CT Colonography 2020 Colonoscopy 2020 FIT-DNA 2020 FIT 2020 FOBT 2020 Sigmoidoscopy 2020 [facility]-Colorectal Cancer Screening 2020 [id number] Vaccine ( - 2023- season) 2024 [facility]-Zoster Vaccines (1 of 2) 2025 [facility]-Influenza Vaccine (#1) 07/27/202508/28, 12/26/2017, 10/26/2016, Additional history exists [facility]-Hepatitis A Vaccines Aged Out 08/28/2019 No longer eligible based on patient's age to complete this topic [facility]-Diabetes: Hemoglobin A1C Discontinued 07/14/2021, 06/09/2021, 06/05/2019 HPV Vaccines Aged Out No longer eligi ble based on patient's age to complete this topic [facility]-HIB Vaccines Aged Out No longer e ligible based on patient's age to complete this topic [facility]-IPV Vaccines Aged Out No longer e ligible based on patient's age to complete this topic [facility]-Pneumococcal Vaccine: Pediatrics (0 to 5 Years) and At-Risk Patients (6 to 49 Years) Aged Out No longer eligible based on patient's age to complete this topic [facility]-Rotavirus Vaccines Aged Out No lo nger eligible based on patient's age to complete this topic [place] [id number] [place] [address] MEDICAID
--- OUTSIDE RECORDS SUMMARY | 2025-06-09 12:02 | XMS_ITS | Continuity of Care Document ---
Author Organization [place] - [facility] - [place] & [facility] Immediate Care- Floor 1, [address] Address [address] [place] [address] Care Team Providers Care Darkroom Worker Name Role Phone NOHEMY OROZCO Primary Care Provider Assessment No assessment recorded. Plan of Treatment Reminders Order Date Submit Date Provider Last Modified By Organization Details Last Modified Time Details Appointments None recorded. Lab None recorded. Referral None recorded. Procedures None recorded. Surgeries None recorded. Imaging None recorded. Medication Orders prednisone 10 mg tablet 2024 025 [id number], [address] , [place], [place], [phone], 16:57:28 methylpred nisolone acetate 80 mg/mL suspension for injection 2024 025 [email or web address] Not available 18:04:01 Patient TargetsNo targets recorded. Patient Instructions Encounter Date Encounter Id Patient Instructions Last Modified By Organization Details Last Modified Time 04/16/2025 [id number] Patient educatio n given. Staff administered Depo [...] 04/16/2025 16:39:39 Reason for Referral None Reported. Problems Name Problem SNOMED Code Status Onset Date Resolution Date Notes Provider Name and Address Organization Details Recorded Time Gastro-esophag eal reflux disease with esophagitis 548283666 Active 2023 Angie Swanson NP [address], [address], [place], [address], [place] - [facility] - [place] & [place] 4 16:09:12 Non-cardiac chest pain 681499057 Active 2023 Angie Swanson NP [address], [address], [place], [address], [place] - [facility] [place] & [place] 16:11:00 Chronic idiopathic constipation 10671854 Active 2023 Angie Swanson NP [address], [address], [place], [address], [place] - [facility] [place] & [place] 16:15:04 Problem Notes None recorded. Medical Equipment None Reported. Allergies Allergen ID Allergen Name Allergen Category Reaction Reaction Severity Criticality Documentation Date Start Date Code Code System Note Provider Name and Address Organization Details Recorded Time 14770 Substance with sulfonami de structure and antibacte rial mechanism of action (substanc e) medicatio n Not available Not available Not available 08/28/2023 23636 8003 SNOMED Breanne padilla, [place] - [facility] - [place] & [place] 17:18:16 62534 lisinopri l medicatio n Not available Not available Not available 08/28/2023 04825 RxNorm Breanne Copelandett valerie, NIR - [facility] - [place] & [place] 17:18:23 39858 acetamino phen / oxycodone medicatio n Not available Not available Not available 08/28/2023 94097 3 RxNorm Breanne Fair null, NIR - [facility] - [place] & [place] 17:18:28 Medications Name Sig Start Date Stop [...] 2 tablets (10 MG) Must have a freight delivery driver. Cannot drive FOR 12 hours AFTER [...] Updated DateTime 5 149.86 cm 39.6 kg/m2 82515.1 g 97.3 [degF] 98 % 98 % 90 /min 130/80 mm[Hg] Arina LOYOLA [facility] - [place] & [place] 5 16:33:45 Social History None recorded. Functional Status None [...] SNOMED-CT Code Diagnosis ICD10 Code Diagnosis Note [id number] Tamiko Silverio [facility]- Floor 1, [address] [place] [address],[address] [place] [address] 04/16/2025 15:38:08 04/16/2025 17:03:51 Acute back pain with sciatica 141785394 M54.42 Health Concerns Section Related Observation LastModified by Organization Detai ls LastModified Time None Recorded Concern Status LastModified by Organization Details LastModified Time None Recorded Payers Encounter Date Sequence Insurance Name Policy Number Policy Anand Covered Member ID Anand Member ID Guarantor Name 04/16/2025 1 [facility] Donya Phani [id number] Donya Jeronimo Notes Date Note Type Note Provider Name and Address Organization Details Recorded Time 04/16/2025 text/html 49 y/o female presents to [...] Patient has attempted Flexeril (from a different [facility]) without any relief. Denies fever/ chills, pain with urination/ urinary frequency/urgency, abdominal pain. Patient has attempted Tylenol without much relief. Heat has helped slightly. No other complaints. Faisal Fernandez PA-C [address] [place] [address], [address], [place], [address], [facility] [place] [facility] [place] 04/22/2025 07:05:32 OBGyn Episode No OBEpisode recorded.
--- OUTSIDE RECORDS SUMMARY | 2025-06-09 12:02 | XMS_ITS | Encounter Summary ---
Author Organization [employer] ([place], [place], [place], [place] Address [address] [place] [address] Care Team Providers Care Digital Photo Printer Name Role Phone Unavailable Primary Care Provider Unavailabl e Reason for Visit * Reason Comments Medication Refill Encounter Details Date Type Department Care Team (Late st Contact Info) Description 10/14/2024 Refill [facility] Emergency Department [address] [place] [address] Maryrcuz Trevizo, GEOSPATIAL IMAGE ANALYST [address] [place] [address] Social History Tobacco Use Types Packs/Day Years Used Date Smoking Tobacco: Every Day Cigarettes Smokeless Tobacco: Never Alcohol Use Standard Drinks/Week Comments Not Currently 0 (1 standard drink = 0.6 oz pur e alcohol) Food Insecurity Answer Date Recorded Food run out past 12 months Not on file 11/26 Food did not last past 12 months Not on file 12/08/2023 Employment Answer Date Recorded Help finding and keeping a job Not on file 0 12/08/2023 Family and Community Support Answer Robby e Recorded Help with Day to Day Activities Not on file 12/08/2023 Feeling Lonely or Isolated Not on file 12/08 Educational Attainment Answer Date Carl rded Speak language other than Jordanian at home Not on file 12/08/2023 Want help with school or training Not on file 12/08/2023 Substance Use Answer Date Recorded Used prescription meds for non-medical reasons N ot on file 12/08/2023 Used illegal drugs past 12 months Not on file 12/08/2023 Comments No Sex and Gender Information Value Date Recorded Sex Assigned at Not on file Legal Sex Female 5:06 PM CDT Gender Identity Not on file Sexual Orientation Not on file documented as of this encounter Plan of Treatment Not on file documented as of this encounter Visit Diagnoses Not on filedocumented in this encounter
--- OUTSIDE RECORDS SUMMARY | 2025-06-09 12:02 | XMS_ITS | Encounter Summary ---
Author Organization [employer] ([place], [place], [place], [place]) Address [address] [place] [address] Care Team Providers Care Vice President Of News Name Role Phone Unavailable Primary Care Provider Unavailabl e Reason for Visit * Reason Comments Medication Refill Encounter Details Date Type Department Care Team (Late st Contact Info) Description 05/06/2024 Refill [facility] Emergency Department [address] [place] [address] Marycruz Trevizo, BOOTH CASHIER [address] [place] [address] Social History Tobacco Use Types Packs/Day Years [...] Date Carl rded Speak language other than Somali at home Not on file 12/08/2023 Want [...]
--- OUTSIDE RECORDS SUMMARY | 2025-06-09 12:02 | XMS_ITS | Clinical Summary ---
Author Organization [employer] ([place], [place], [place], [place]) Address [address] [place] [address] Care Team Providers Care Motor Vehicle Examiner Name Role Phone Unavailable Primary Care Provider Unavailabl e Allergies Active Allergy Reactions Criticality Noted Date Comments Ketorolac Tromethamine Itching Low 07/10/2016 Lisinopril Swelling,Itching High 08/28/2016 Oxycodone-Acetaminophen 12/07/2022 Sulfa (Sulfonamide Antibiotics) 04/26 Medications amLODIPine (NORVASC) 10 MG tablet Take 10 mg by mouth daily. 10/20/2022 Active hydroCHLOROthia zide (HYDRODIURIL) 25 MG tablet Take 25 mg by mouth daily. 10/20/2022 Active metoprolol succinate (TOPROL-XL) 50 MG 24 hr tablet Take 50 mg by mouth daily. 10/20/2022 Active ticagrelor (Brilinta) 90 mg Tab tablet Take 1 tablet (90 mg total) by mouth 2 (two) times daily. 180 tablet 12/07/2022 Active hydrOXYzine (VISTARIL) 50 MG capsule TAKE 1 CAPSULE(50 MG) BY MOUTH THREE TIMES DAILY FOR UP TO 10 DAYS NEEDED FOR ITCHING 30 capsule 03/15/2024 Active Social History Tobacco Use Types Packs/Day Years Used Date Smoking Tobacco: Every Day Cigarettes Smokeless Tobacco: Never Tobacco Cessation:Ready to Q uit: Not Asked; Counseling Given: Not Answered Alcohol Use Standard Drinks/Week Comments Not Currently [...] Date Carl rded Speak language other than Bahraini at home Not on file 12/08/2023 Want [...] Sign Reading Time Taken Comments Blood Pressure 98/77 10/17/2023 8:10 PM EST Pulse 76 10/17/2023 8:10 PM EST Temperature 36.7 C (98 F) 10/17/2023 3:59 PM EST Respiratory Rate 22 10/17/2023 8:10 PM EST Oxygen Saturation 97% 10/17/2023 8:10 PM EST Inhaled Oxygen Concentration - - Weight 74.8 kg (165 lb) 07/04/2023 3:12 PM EDT Height 149.9 cm (4' 11 ) 07/04/2023 3:12 PM EDT Body Mass Index 33.33 07/04/2023 3:12 PM EDT Plan of Treatment Health Maintenance Due Date Last Done Comments CT Colonography 1975 Colonoscopy 1975 Colorectal Cancer Screening 1975 FOBT/FIT 1975 Fit-DNA (Cologuard) 1975 Sigmoidoscopy 1975 Depression Screening (12+) 1987 HIV Screening 1990 Hepatitis C Screening 1993 Pneumococcal Vaccine: 0-49 Y ears (1 of 2 - PCV) 1994 Pap Smear 1996 Breast Cancer Screening 2015 DTAP/TDAP/TD VACCINES (2 - Td or Tdap) 04/30/2020 Lipid Panel 07/14/2024 07/14/2021 COVID-19 VACCINE ( season) 2024 Tobacco Cessation Counseling and Screening (12+) 10/17/2024 10/17/2023 Influenza Vaccine (#1) 2025 08/28/2019, 2014 Insurance [employer] [facility] Advance Directives For more information, please contact: [phone] * Full Code (Latest Code Status on File) Date Activated Date Inactivated Comments 12/07/2022 3:45 PM 12/08/2022 7:01 PM
--- OUTSIDE RECORDS SUMMARY | 2025-06-09 12:02 | XMS_ITS | Referral Summary ---
Author Organization [employer] ([place], [place], [place], [place]) Address [address] [place] [address] Care Team Providers Care Map Mounter Name Role Phone Unavailable Primary Care Provider [...] Date Carl rded Speak language other than Turkmen at home Not on file 12/08/2023 Want [...] 07/04/2023 3:12 PM EDT Plan of Treatment [place] [phone] [employer] [facility] Advance Directives For more information, please contact: [phone] * Full Code (Latest Code Status on File) Date Activated Date Inactivated Comments 12/07/2022 3:45 PM 12/08/2022 7:01 PM
--- OUTSIDE RECORDS SUMMARY | 2025-06-09 12:02 | XMS_ITS | Encounter Summary ---
Author Organization [employer] ([place], [place], [place], [place]) Address [address] [place] [address] Care Team Providers Care Boat Hand Name Role Phone Unavailable Primary Care Provider Unavailabl e Encounter Details Date Type Department Care Team (Late st Contact Info) Description 08/30/2021 Transcribed Document [facility] [place] [address] ProviderElena MD [address] [place] [id number] Social History Tobacco Use Types Packs/Day Years Used Date Smoking Tobacco: Never Assessed Comments Unknown Sex and Gender Information Value Date Recorded Sex Assigned at Not on file Legal Sex Female 5:06 PM CDT Gender Identity Not on file Sexual Orientation Not on file documented as of this encounter Miscellaneous Notes * Cerner Conversion Note - Historical ProviderMD - 08/30/2021 1:21 PM CDT Stroke/Warfarin Instructions Entered On: 08/30/2021 13:21 EDT Performed On: 08/30/2021 13:21 EDT by ISIS RYDER, RN Stroke/Warfarin Instructions Stroke/TIA Discharge Ins : N/A Warfarin Discharge Ins : N/A ISIS YRDER RN - 08/30/2021 13:21 EDT documented in this encounter Plan of Treatment Not on file documented as of this encounter Visit Diagnoses Not on filedocumented in this encounter
--- OUTSIDE RECORDS SUMMARY | 2025-06-09 12:02 | XMS_ITS | Encounter Summary ---
Author Organization [employer] ([place], [place], [place], [place]) Address [address] [place] [address] Care Team Providers Care Website Admin Name Role Phone Unavailable Primary Care Provider Unavailabl e Encounter Details Date Type Department Care Team (Late st Contact Info) Description 08/30/2021 Transcribed Document [facility] [place] [facility] [place] [address] ProviderElena MD [address] [place] [id number] Social History Tobacco Use Types Packs/Day Years Used Date Smoking Tobacco: Never Assessed Comments Unknown Sex and Gender Information Value Date Recorded Sex Assigned at Not on file Legal Sex Female 5:06 PM CDT Gender Identity Not on file Sexual Orientation Not on file documented as of this encounter Miscellaneous Notes * Cerner Conversion Note - Elena ProviderMD - 08/30/2021 3:23 PM CDT [address] [address] DONYA JERONIMO :1975 Visit Time:08/30/2021 Your Visit Summary Your Care Team Admitting Physician - ENID FRANCISCO MD-CAR Attending Physician - ENID FRANCISCO MD-CAR Primary Care Physician - ANA, NOT LISTED Referring Physician - ENID FRANCISCO MD-CAR These Are Your Goals No qualifying data available. Discharge Vitals Temperature 36.4 ??C Respiratory Rate 16 Blood Pressure 156/90 What to do next Follow-Up Appointments Follow Up with ENID FRANCISCO MD-NIMA When Within 2 weeks Comments Call for follow up appointment Where: [address] [place] [address]- Medications What How Much When Instructions Next Dose albuterol (albuterol 90 mcg/ inh inhalation powder) 2 Puff(s) Inhalation Every 4 Hours as needed for as needed for shortness of breath or wheezing amLODIPine (amLODIPine 5 mg oral tablet) 1 Tablet(s) Oral Every Day around noon hydroCHLOROthiazide (hydrochlorothiazide 25 mg oral tablet) 1 Tablet(s) Oral Every Day noon metoprolol (metoprolol tartrate) 50 Milligram(s) Two Times A Day venlafaxine 37.5 Milligram(s) Oral Every Day as needed for Headache Take your medications faithfully. Do NOT skip [...] Please dispose of unused and medications per your retail pharmacy guidance. Allergies Percocet 5/325 lisinopril sulfADIAZINE (Redness, C/O: a swelling, C/O: a swelling~Redness) Immunizations This Visit No Immunizations Found Education Materials Hypertension, Adult High blood pressure (hypertension) is when the force of blood pumping through the arteries is too strong. The arteries are the blood vessels that carry blood from the heart throughout the body. Hypertension forces the heart to work harder to pump blood and may cause arteries to become narrow or stiff. Untreated or uncontrolled hypertension can cause a heart attack, heart failure, a stroke, kidney disease, and other problems. A blood pressure reading consists of a higher number over a lower number. Ideally, your blood pressure should be below 120/80. The first ( top ) number is called the systolic pressure. It is a measure of the pressure in your arteries as your heart beats. The second ( bottom ) number is called the diastolic pressure. It is a measure of the pressure in your arteries as the heart relaxes. What are the causes? The exact cause of this condition is not known. There are some conditions that result in or are related to high blood pressure. What increases the risk? Some risk factors for high blood pressure are under your control. The following factors may make you more likely to develop this condition: ??? Smoking. ??? Having type 2 diabetes mellitus, high cholesterol, or both. ??? Not getting enough exercise or physical activity. ??? Being overweight. ??? Having too much fat, sugar, calories, or salt (sodium) in your diet. ??? Drinking too much alcohol. Some risk factors for high blood pressure may be difficult or impossible to change. Some of these factors include: ??? Having chronic kidney disease. ??? Having a family history of high blood pressure. ??? Age. Risk increases with age. ??? Race. You may be at higher risk if you are . ??? Gender. Men are at higher risk than women before age 45. After age 65, women are at higher risk than men. ??? Having obstructive sleep apnea. ??? Stress. What are the signs or symptoms? High blood pressure may not cause symptoms. Very high blood pressure (hypertensive crisis) may cause: ??? Headache. ??? Anxiety. ??? Shortness of breath. ??? Nosebleed. ??? Nausea and vomiting. ??? Vision changes. ??? Severe chest pain. ??? Seizures. How is this diagnosed? This condition is diagnosed by measuring your blood pressure while you are seated, with your arm resting on a flat surface, your legs uncrossed, and your feet flat on the floor. The cuff of the blood pressure monitor will be placed directly against the skin of your upper arm at the level of your heart. It should be measured at least twice using the same arm. Certain conditions can cause a difference in blood pressure between your right and left arms. Certain factors can cause blood pressure readings to be lower or higher than normal for a short period of time: ??? When your blood pressure is higher when you are in a health care provider's office than when you are at home, this is called white coat hypertension. Most people with this condition do not need medicines. ??? When your blood pressure is higher at home than when you are in a health care provider's office, this is called masked hypertension. Most people with this condition may need medicines to control blood pressure. If you have a high blood pressure reading during one visit or you have normal blood pressure with other risk factors, you may be asked to: ??? Return on a different day to have your blood pressure checked again. ??? Monitor your blood pressure at home for 1 week or longer. If you are diagnosed with hypertension, you may have other blood or imaging tests to help your health care provider understand your overall risk for other conditions. How is this treated? This condition is treated by making healthy lifestyle changes, such as eating healthy foods, exercising more, and reducing your alcohol intake. Your health care provider may prescribe medicine if lifestyle changes are not enough to get your blood pressure under control, and if: ??? Your systolic blood pressure is above 130. ??? Your diastolic blood pressure is above 80. Your personal target blood pressure may vary depending on your medical conditions, your age, and other factors. Follow these instructions at home: Eating and drinking ??? Eat a diet that is high in fiber and potassium, and low in sodium, added sugar, and fat. An example eating plan is called the DASH (Dietary Approaches to Stop Hypertension) diet. To eat this way: ? Eat plenty of fresh fruits and vegetables. Try to fill one half of your plate at each meal with fruits and vegetables. ? Eat whole grains, such as whole-wheat pasta, brown rice, or whole-grain bread. Fill about one fourth of your plate with whole grains. ? Eat or drink low-fat dairy products, such as skim milk or low-fat yogurt. ? Avoid fatty cuts of meat, processed or cured meats, and poultry with skin. Fill about one fourth of your plate with lean proteins, such as fish, chicken without skin, beans, eggs, or tofu. ? Avoid pre-made and processed foods. These tend to be higher in sodium, added sugar, and fat. ??? Reduce your daily sodium intake. Most people with hypertension should eat less than 1,500 mg of sodium a day. ??? Do not drink alcohol if: ? Your health care provider tells you not to drink. ? You are , may be , or are planning to become . ??? If you drink alcohol: ? Limit how much you use to: ? 0???1 drink a day for women. ? 0???2 drinks a day for men. ? Be aware of how much alcohol is in your drink. In the [place] one drink equals one 12 oz bottle of beer (355 mL), one 5 oz glass of wine (148 mL), or one 1?? oz glass of hard liquor (44 mL). Lifestyle ??? Work with your health care provider to maintain a healthy body weight or to lose weight. Ask what an ideal weight is for you. ??? Get at least 30 minutes of exercise most days of the week. Activities may include walking, swimming, or biking. ??? Include exercise to strengthen your muscles (resistance exercise), such as Pilates or lifting weights, as part of your weekly exercise routine. Try to do these types of exercises for 30 minutes at least 3 days a week. ??? Do not use any products that contain nicotine or tobacco, such as cigarettes, e-cigarettes, and chewing tobacco. If you need help quitting, ask your health care provider. ??? Monitor your blood pressure at home as told by your health care provider. ??? Keep all follow-up visits as told by your health care provider. This is important. Medicines ??? Take dikl-gjj-ssmfbct and prescription medicines only as told by your health care provider. Follow directions carefully. Blood pressure medicines must be taken as prescribed. ??? Do not skip doses of blood pressure medicine. Doing this puts you at risk for problems and can make the medicine less effective. ??? Ask your health care provider about side effects or reactions to medicines that you should watch for. Contact a health care provider if you: ??? Think you are having a reaction to a medicine you are taking. ??? Have headaches that keep coming back (recurring). ??? Feel dizzy. ??? Have swelling in your ankles. ??? Have trouble with your vision. Get help right away if you: ??? Develop a severe headache or confusion. ??? Have unusual weakness or numbness. ??? Feel faint. ??? Have severe pain in your chest or abdomen. ??? Vomit repeatedly. ??? Have trouble breathing. Summary ??? Hypertension is when the force of blood pumping through your arteries is too strong. If this condition is not controlled, it may put you at risk for serious complications. ??? Your personal target blood pressure may vary depending on your medical conditions, your age, and other factors. For most people, a normal blood pressure is less than 120/80. ??? Hypertension is treated with lifestyle changes, medicines, or a combination of both. Lifestyle changes include losing weight, eating a healthy, low-sodium diet, exercising more, and limiting alcohol. This information is not intended to replace advice given to you by your health care provider. Make sure you discuss any questions you have with your health care provider. Document Revised: 07/23/2019 Document Reviewed: 07/23/2019 [employer] Patient Education ?? 2020 [employer] Transesophageal Echocardiogram Transesophageal echocardiogram (GEORGE) is a test that uses sound waves to take pictures of your heart. GEORGE is done by passing a flexible tube down the esophagus. The esophagus is the tube that carries food from the throat to the stomach. The pictures give detailed images of your heart. This can help your doctor see if there are problems with your heart. What happens before the procedure? Staying hydrated Follow instructions from your doctor about hydration, which may include: ??? Up to 3 hours before the procedure ??? you may continue to drink clear liquids, such as: ? Water. ? Clear fruit juice. ? Black coffee. ? Plain tea. Eating and drinking Follow instructions from your doctor about eating and drinking, which may include: ??? 8 hours before the procedure ??? stop eating heavy meals or foods such as meat, fried foods, or fatty foods. ??? 6 hours before the procedure ??? stop eating light meals or foods, such as toast or cereal. ??? 6 hours before the procedure ??? stop drinking milk or drinks that contain milk. ??? 3 hours before the procedure ??? stop drinking clear liquids. General instructions ??? You will need to take out any dentures or retainers. ??? Plan to have someone take you home from the hospital or clinic. ??? If you will be going home right after the procedure, plan to have someone with you for 24 hours. ??? Ask your doctor about: ? Changing or stopping your normal medicines. This is important if you take diabetes medicines or blood thinners. ? Taking zeir-its-bjhddmk medicines, vitamins, herbs, and supplements. ? Taking medicines such as aspirin and ibuprofen. These medicines can thin your blood. Do not take these medicines unless your doctor tells you to take them. What happens during the procedure? To lower your risk of infection, your doctors will wash or clean their hands. ??? An IV will be put into one of your veins. ??? You will be given a medicine to help you relax (sedative). ??? A medicine may be sprayed or gargled. This numbs the back of your throat. ??? Your blood pressure, heart rate, and breathing will be watched. ??? You may be asked to lay on your left side. ??? A bite block will be placed in your mouth. This keeps you from biting the tube. ??? The tip of the GEORGE probe will be placed into the back of your mouth. ??? You will be asked to swallow. ??? Your doctor will take pictures of your heart. ??? The probe and bite block will be taken out. The procedure may vary among doctors and hospitals. What happens after the procedure? Your blood pressure, heart rate, breathing rate, and blood oxygen level will be watched until the medicines you were given have worn off. ??? When you first wake up, your throat may feel sore and numb. This will get better over time. You will not be allowed to eat or drink until the numbness has gone away. ??? Do not drive for 24 hours if you were given a medicine to help you relax. Summary ??? GEORGE is a test that uses sound waves to take pictures of your heart. ??? You will be given a medicine to help you relax. ??? Do not drive for 24 hours if you were given a medicine to help you relax. This information is not intended to replace advice given to you by your health care provider. Make sure you discuss any questions you have with your health care provider. Document Revised: 08/01/2019 Document Reviewed: 02/13/2018 [employer] Patient Education ?? 2020 [employer] Moderate Conscious Sedation, Adult, Care After This sheet gives you information about how to care for yourself after your procedure. Your health care provider may also give you more specific instructions. If you have problems or questions, contact your health care provider. What can I expect after the procedure? After the procedure, it is common to have: ??? Sleepiness for several hours. ??? Impaired judgment for several hours. ??? Difficulty with balance. ??? Vomiting if you eat too soon. Follow these instructions at home: For at least 24 hours after the procedure: ??? Rest. ??? Do not: ? Participate in activities where you could fall or become injured. ? Drive. ? Use machinery. ? Drink alcohol. ? Take sleeping pills or medicines that cause drowsiness. ? Make important decisions or sign legal documents. ? Take care of children on your own. Eating and drinking ??? Follow the diet recommended by your health care provider. ??? Drink enough fluid to keep your urine pale yellow. ??? If you vomit: ? Drink water, juice, or soup when you can drink without vomiting. ? Make sure you have little or no nausea before eating solid foods. General instructions ??? Have a responsible adult stay with you until you are awake and alert. ??? Take lxcs-vud-udfgdij and prescription medicines only as told by your health care provider. ??? Do not smoke. ??? Keep all follow-up visits as told by your health care provider. This is important. Contact a health care provider if: ??? You are still sleepy or having trouble with balance after 24 hours. ??? You feel light-headed. ??? You keep feeling nauseous or you keep vomiting. ??? You develop a rash. ??? You have a fever. ??? You have redness or swelling around the IV site. Get help right away if: ??? You have trouble breathing. ??? You have new-onset confusion at home. Summary ??? After the procedure, it is common to feel sleepy, have impaired judgment, or feel nauseous if you eat too soon. ??? Rest after you get home. Know the things you should not do for at least 24 hours after the procedure. ??? Follow the diet recommended by your health care provider and drink enough fluid to keep your urine pale yellow. ??? Get help right away if you have trouble breathing or new-onset confusion at home. This information is not intended to replace advice given to you by your health care provider. Make sure you discuss any questions you have with your health care provider. Document Revised: 10/07/2020 Document Reviewed: 10/07/2020 [employer] Patient Education ?? 2020 [employer]. Emergency Awareness and Preventative Care STROKE is [...] Assistance with quitting is available by contacting 1-817-RKVH-NOW. This is a free resource providing counseling, support, and referral. Or you may contact your personal physician. National Suicide Prevention Lifeline: The National Suicide Prevention [...] CPR? There are two easy steps: Call if you see a teen or adult [...] and how to prevent infections, visit www.cdc.gov/sepsis. Test Results Laboratory or Other Results This Visit (last charted value for your 08/30/2021 visit) Microbiology 08/30/2021 1:07 PM SARS-CoV-2 (COVID19 PCR): Negative Patient Name:JERONIMO DONYAJAMAAL CHAVEZ I have received and understand this information and was given the opportunity to ask questions. Patient/Hog Tender Name: Patient/Hog Tender Signature: Relationship to Patient: Clinician/Hospital Hog Tender Signature: Date: documented in this encounter Plan of Treatment Not on file documented as of this encounter Visit Diagnoses Not on filedocumented in this encounter
--- NOTE | 2025-06-09 12:05 | XR_ITS ---
FINAL REPORT CLINICAL HISTORY: Shortness of breath and chest pain COMPARISON: 01/22/2025 FINDINGS: A single frontal view of the chest was obtained. No acute pulmonary opacity is present. There is no evidence of effusion or pneumothorax. Mediastinum is unremarkable. Heart size is normal. IMPRESSION: No acute abnormality. Reviewed, Interpreted and Dictated by Zeyad Salvador MD Transcribed by Germania Mcghee Authenticated and [facility]
[2025-06-09] MEDS: ONDANSETRON 4MG/2ML VIAL 4 MG IV (12:09)
[2025-06-09] MEDS: MORPHINE 4MG/ML SYRINGE 4 MG IV (12:09)
[2025-06-09 12:15] LABS: Hematocrit 42.2 % (37.0-47.0); Hemoglobin 14.7 g/dL (12.2-16.2); Immature Granulocytes % 0.2 %; Mean Corpuscular HGB Conc 34.8 g/dL (31.8-35.4); Mean Corpuscular Hemoglobin 30.8 pg (27.0-31.2); Mean Corpuscular Volume 88.5 fl (81-99); Nucleated Red Blood Cells % 0 %; Platelet Count 366 K/mm3 (142-424); Red Blood Count 4.77 M/mm3 (4.20-5.40); Red Cell Distribution Width-SD 40.7 fL; White Blood Count 6.6 K/mm3 (4.8-10.8)
--- NOTE | 2025-06-09 12:15 | ED_ITS ---
Discharge Plan Disposition Patient Disposition: Home, Self-Care Condition: Good Prescriptions Prescriptions: No Action (DME) FreeStyle Lite Strips Strip See Rx Instructions .ROUTE .MEDSUPPLY Qty: 10 Patient Comments: USE DIRECTED TO TEST THREE TIMES DAILY Rx Instructions: As directed ranolazine 500 mg tablet extended release 12 hr 500 mg PO BID Qty: 60 5RF nitroglycerin 0.4 mg tablet, sublingual 0.4 mg sublingual Q5-15M PRN (Reason: chest pain) Qty: 30 0RF Rx Instructions: do not exceed 3 doses per episode amlodipine 2.5 mg tablet 2.5 mg PO DAILY Qty: 90 3RF metoprolol succinate 100 mg tablet extended release 24 hr 100 mg PO DAILY Qty: 90 2RF hydrochlorothiazide 25 mg tablet 25 mg PO BID 90 Days Qty: 180 3RF hydralazine 25 mg tablet See Rx Instructions .ROUTE .COMPLEX Qty: 270 1RF Dose Instruction: TAKE 1 TABLET BY MOUTH THREE TIMES DAILY NEEDED FOR HYPERTENSION Rx Instructions: TAKE 1 TABLET BY MOUTH THREE TIMES DAILY NEEDED FOR HYPERTENSION aspirin 81 mg tablet,delayed release (DR/EC) 81 mg PO DAILY 90 Days Qty: 90 3RF glipizide 5 mg tablet extended release 24hr 5 mg PO DAILY esomeprazole magnesium [Nexium] 40 mg capsule,delayed release(DR/EC) 40 mg PO DAILY Qty: 90 3RF Creon 36,000-114,000- 180,000 unit capsule,delayed release(DR/EC) 2 cap PO .COMPLEX Qty: 720 3RF Rx Instructions: 2 caps orally with meals and 1 with snacks sucralfate [Carafate] 1 gram tablet 1 g PO Q6H PRN (Reason: dyspepsia) Qty: 90 5RF Ozempic 0.25 mg or 0.5 mg (2 mg/3 mL) pen injector SQ isosorbide mononitrate 30 mg tablet extended release 24 hr 30 mg PO DAILY Qty: 90 2RF atorvastatin 80 mg tablet 80 mg PO DAILY Qty: 90 3RF clopidogrel 75 mg tablet 75 mg PO DAILY Qty: 90 3RF spironolactone 25 mg tablet 25 mg PO BID Qty: 60 11RF hydroxyzine pamoate 50 mg capsule 50 mg PO TIDP PRN (Reason: Anxiety) prucalopride [Motegrity] 2 mg tablet 2 mg PO DAILY Qty: 30 12RF Rx Instructions: Please take 1 tablet p.o. every morning Referrals Follow up/Referrals: Damon Barajas II, MD [Staff Physician, Gastroenterology] - See instructions Provider,MD Sherrill [Referring, Medical] - See instructions Mateo Prado MD [Staff Physician, Cardiology] - See instructions Activity Restrictions/Add. Instructions Additional Instructions/Restrictions: Please return to the emergency department with any worsening signs or symptoms, please follow-up with your studio operations engineer in charge, and GI physicians, continue all your medications as prescribed. Clinical Impressions Clinical Impression: Atypical chest pain Instructions Patient Instructions: DI for Atypical Chest Pain Print Language Print Language: Ethiopian Discharge ED Provider: Donna Pack General Chief Complaint: Chest Pain Stated Complaint: chest pain Time Seen by Provider: 06/09/25 11:57 Mode of Arrival: Ambulatory Source of Information: Patient Description of Symptoms (Recalled from ER Triage Doc. by RN): pt presents to ED with c/o left sided chest pain and shortness of air. pt reports symptoms began last night. pt reports symptoms began with pin pricks on side of chest. pt reports that she has felt strange the past 3 days but can not pinpoint anything specific. History of Present Illness HPI narrative: 49-year-old female presents emergency department left-sided chest pain, shortness of breath, and nausea the symptoms began around 7 PM last night, patient states that the pain last night was a 2 out of 10, and is gradually worsened, much so that it woke her up this morning at a 7 or 8 out of 10, radiation down to the left arm, and into the left side of the back, she denies any real abdominal pain, no vomiting, no diarrhea, does have history of chronic constipation, denies any urinary type symptomatology, denies any fever chills, cough or congestion, patient has data deficient history of coronary artery disease status post 1 stent placement, hypertension, KAREN, T2DM, REJI, GERD, she is on antiplatelet therapy with aspirin, she is taken her baby aspirin this morning, as well as 1 nitroglycerin with little no relief of her symptomatology, she also is on antiplatelet therapy of Plavix, data deficient history of pancreatic insufficiency. Initial triage vitals noted for tachycardia, otherwise unremarkable. MD complaint: chest pain Related Data Home Medications ?Medication ?Instructions ?Recorded ?Confirmed glipizide 5 mg tablet, extended 5 mg PO DAILY 07/09/24 05/25/25 release 24 hr blood sugar diagnostic (FreeStyle #10 ea 02/23/2504/28 Lite Strips) hydroxyzine pamoate 50 mg capsule 50 mg PO TIDP PRN An xiety 03/10/25 05/25/25 semaglutide 0.25 mg or 0.5 mg (2 mg SQ 04/07/25 mg/3 mL) subcutaneous pen injector (Ozempic) Previous Rx's ?Medication ?Instructions ?Recorded esomeprazole magnesium 40 mg 40 mg PO DAILY #90 caps 0 01/13/25 capsule,delayed release (Nexium) [id number] 2 cap PO .COMPLEX #720 caps 01/13/25 36,000-114,000-180,000 unit capsule,delay rel (Creon) sucralfate 1 gram tablet (Carafate) 1 g PO Q6H PRN dys pepsia #90 tabs 01/13/25 isosorbide mononitrate 30 mg 30 mg PO DAILY #90 tabs 0 01/19/25 tablet,extended release 24 hr atorvastatin 80 mg tablet 80 mg PO DAILY #90 tabs 12/28 05/20 clopidogrel 75 mg tablet 75 mg PO DAILY #90 tabs 12/28 05/20 nitroglycerin 0.4 mg sublingual 0.4 mg sublingual Q5-1 5M PRN chest 02/23/25 tablet pain #30 tabs ranolazine 500 mg tablet,extended 500 mg PO BID #60 ta bs 02/23/25 release,12 hr prucalopride 2 mg tablet 2 mg PO DAILY #30 tabs 03/11 (Motegrity) spironolactone 25 mg tablet 25 mg PO BID #60 tabs 0504/19 amlodipine 2.5 mg tablet 2.5 mg PO DAILY #90 tabs aspirin 81 mg tablet,delayed 81 mg PO DAILY 90 days #9 0 tabs 05/25/25 release hydralazine 25 mg tablet See Rx Instructions .Route 0 05/25/25 .COMPLEX #270 tabs hydrochlorothiazide 25 mg tablet 25 mg PO BID 90 days #180 tabs 06/30/25 metoprolol succinate 100 mg 100 mg PO DAILY #90 tabs 0 05/25/25 tablet,extended release 24 hr Allergies Allergy/AdvReac Type Severity Reaction Status Date / Time lisinopril Allergy Hives Verified 05/25/25 13:42 oxycodone (From Percocet) Allergy Hives Verified 05/25/25 13:42 Sulfa (Sulfonamide Allergy Hives Verified 05/25/25 13:42 Antibiotics) [facility] Disclaimer: The information contained in this section may have been updated after the patient was seen, as this information can be updated by other users. 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, 2001, status post laser surgeries Brain fog Known side effect of topiramate History of nephrolithiasis Least 3?5 kidney stones, recommend avoiding topiramate Family history of brain aneurysm Both mother and paternal grandfather, patient denies prior aneurysm screening Carpal tunnel syndrome of left wrist GERD (gastroesophageal reflux disease) Hypoglycemia Cervical cancer HISTORY OF Ovarian cancer HISTORY OF Hypertension Surgical History Status post myringotomy with tube placement of both ears History of cardiac cath H/O LEEP x3 History of x2 Family History Other Family history of diabetes mellitus type II Family history of hyperlipidemia Family history of hypertension Hx of CABG Social History Smoking Status: Former smoker smoking status stop date: Oct 2023 alcohol intake: never substance use type: denies use current occupational status: unemployed Travel in the last 8 weeks?: None household members: significant other housing: house marital status: single caffeine: Yes Have you lived/traveled outside [place] in past 30 days?: No Contact w/someone who lives/traveled outside US past 30 days?: No Exposure to someone with infectious disease in past 14 days?: No Do you have a fever (greater than 100.4 F or 38 C)?: No Have you tested positive for COVID-19?: No Exposed to someone with COVID-19 in past 14 days?: No Do you have a sore throat?: No Do you have a cough?: No Do you have any weakness?: No Do you have any diarrhea?: No Are you experiencing any unusual bleeding?: No Do you have any muscle aches/pain?: No Do you have any abdominal pain?: No Are you experiencing loss of taste or smell?: No Other Medical History Have you received the Flu Vaccine for this season: No Have you received the Pneumonia Vaccine: No ROS Obtained: Yes All systems reviewed & no additional complaints except as documented Physical Exam General General appearance: alert and in no apparent distress Head Head exam: atraumatic and normocephalic Eye Eye exam: Present PERRL and EOMI ENT ENT exam: Present mucous membranes moist Neck Neck exam: Present normal inspection Chest Chest inspection: Present normal inspection and symmetric chest wall rise Respiratory Respiratory exam: Present normal lung sounds bilaterally; Absent respiratory distress Cardiovascular Cardiovascular exam: Present normal rhythm and tachycardia Abdominal Exam Abdominal exam: Present soft; Absent tenderness, guarding, rebound or rigidity Extremities Exam Extremities exam: Present normal inspection Neurological Exam Neurological exam: Present alert and oriented X3 Psychiatric Psychiatric exam: Present normal affect Skin Skin exam: Present warm and dry HEART Score HEART Score HEART Score assessment performed?: Yes HEART Score: 3 Critical Care Critical Care Time Critical Care Time: No Medical Decision Making Medical Records Medical records reviewed: Yes I reviewed the patient's medical records. Billy Inquiry Pt receiving controlled substance: No Billy was queried for this patient: No Vital Signs Vital Signs: 06/09/25 12:00 06/09/25 12:02 06/09/25 12:18 Temperature 98.6 F Temperature Source Oral Pulse Rate 113 H 109 H Pulse Rate [Left Radial] 126 H Respiratory Rate 12 22 12 Blood Pressure 157/110 H 132/95 H Blood Pressure [Right Arm] 163/107 H Blood Pressure Mean 125 107 Blood Pressure Mean [Right Arm] 125 Blood Pressure Source [Right Arm] Automatic Cuff Blood Pressure Position [Right Arm] Supine 02 Sat by Pulse Oximetry 99 98 96 Oxygen Delivery Method Room Air 06/09/25 12:30 06/09/25 13:00 06/09/25 13:30 Temperature Temperature Source Pulse Rate 102 H 102 H 92 H Pulse Rate [Left Radial] Respiratory Rate 15 11 L 17 Blood Pressure 114/89 106/81 L 115/80 Blood Pressure [Right Arm] Blood Pressure Mean 97 89 86 Blood Pressure Mean [Right Arm] Blood Pressure Source [Right Arm] Blood Pressure Position [Right Arm] 02 Sat by Pulse Oximetry 97 95 Oxygen Delivery Method 06/09/25 13:42 06/09/25 14:00 06/09/25 14:30 Temperature Temperature Source Pulse Rate 90 83 88 Pulse Rate [Left Radial] Respiratory Rate 16 10 L 17 Blood Pressure 104/78 L 113/76 103/74 L Blood Pressure [Right Arm] Blood Pressure Mean 88 89 82 Blood Pressure Mean [Right Arm] Blood Pressure Source [Right Arm] Blood Pressure Position [Right Arm] 02 Sat by Pulse Oximetry 95 97 96 Oxygen Delivery Method 06/09/25 15:00 06/09/25 15:30 06/09/25 16:00 Temperature Temperature Source Pulse Rate 86 82 82 Pulse Rate [Left Radial] Respiratory Rate 17 14 14 Blood Pressure 118/69 96/68 L 116/78 Blood Pressure [Right Arm] Blood Pressure Mean Blood Pressure Mean [Right Arm] Blood Pressure Source [Right Arm] Blood Pressure Position [Right Arm] 02 Sat by Pulse Oximetry 99 97 98 Oxygen Delivery Method 06/09/25 16:30 Temperature Temperature Source Pulse Rate 81 Pulse Rate [Left Radial] Respiratory Rate 11 L Blood Pressure 109/77 L Blood Pressure [Right Arm] Blood Pressure Mean Blood Pressure Mean [Right Arm] Blood Pressure Source [Right Arm] Blood Pressure Position [Right Arm] 02 Sat by Pulse Oximetry 99 Oxygen Delivery Method Lab Data Lab results reviewed: Yes I reviewed the patient's lab results. Labs: Lab Results 06/09/25 12:01: WBC 6.6, RBC 4.77, Hgb 14.7, Hct 42.2, MCV 88.5, MCH 30.8, MCHC 34.8, RDW 12.5, Plt Count 366, MPV 10.0, Neut % (Auto) 41.0, Lymph % (Auto) 45.5, [place] % (Auto) 12.2 H, Eos % (Auto) 0.8, Baso % (Auto) 0.3, Neut # (Auto) 2.7, Lymph # (Auto) 3.0, [place] # (Auto) 0.8, Eos # (Auto) 0.1, Baso # (Auto) 0.0, PT 11.0, INR 0.99, D-Dimer 0.36, Sodium 133 L, Potassium 4.3, Chloride 96 L, Carbon Dioxide 23, Anion Gap 18.3 H, BUN 19 H, Creatinine 0.70, Estimated Creat Clear 132, Estimated GFR 89, Est GFR ( Amer) 108, Glucose 174 H, Calcium 9.5, Magnesium 2.0, Total Bilirubin 1.0, AST 27, ALT 41, Alkaline Phosphatase 99, Troponin I < 0.01, NT-Pro-B Natriuret Pep < 20.0, Total Protein 7.9, Albumin 4.7, Globulin 3.2, Albumin/Globulin Ratio 1.5, Lipase 78 06/09/25 15:08: Troponin I < 0.01 06/09/25 12:01 06/09/25 12:01 Response Orders (Tests/Meds): ED MEDICATIONS Discontinued Medications Generic Name Dose Route Start Last Admin Trade Name Enocq PRN Reason Stop Dose Admin Aspirin 243 mg 06/09/25 12:11 06/09/25 12:16 Aspirin 81mg Chewable Tablet PO 06/09/25 12:12 243 mg ONCE ONE Administration Iopamidol 80 ml 06/09/25 14:56 06/09/25 15:04 Iopamidol-370 (76%);100ml Bottle IV 06/09/25 14:57 80 ml ONCE ONE Administration Morphine Sulfate 4 mg 06/09/25 12:04 06/09/25 12:09 Morphine 4mg/Ml Syringe IV 06/09/25 12:05 4 mg ONCE ONE Administration Morphine Sulfate 2 mg 06/09/25 13:45 06/09/25 13:48 Morphine 2mg/Ml Syringe IV 06/09/25 13:46 2 mg ONCE ONE Administration Nitroglycerin 0.4 mg 06/09/25 12:12 06/09/25 12:16 Nitroglycerin 0.4mg Sl Tablet SL 06/09/25 12:13 0.4 mg ONCE ONE Administration Ondansetron HCl 4 mg 06/09/25 12:04 06/09/25 12:09 Ondansetron 4mg/2ml Vial IV 06/09/25 12:05 4 mg ONCE ONE Administration Sodium Chloride 50 ml 06/09/25 14:56 06/09/25 15:03 0.9 % Sodium Chloride 50 Ml Vial IV 06/09/25 14:57 50 ml ONCE ONE Administration Sodium Chloride 10 ml 06/09/25 14:56 06/09/25 15:03 Sodium Chloride 0.9% 10ml Syr (Rad Only) IV 06/09/25 14:57 10 ml ONCE ONE Administration ORDERS Category Date Time Status CT angio abd/pel - GI Bleed Stat Cat Scan 06/09/25 14:[address] angio chest - dissection Stat Cat Scan 06/09/25 14:12 Completed XR chest portable Stat Exams 06/09/25 12:05 Completed Complete Blood Count Auto Diff Stat Lab 06/09/25 12:01 Completed Comprehensive Metabolic Panel Stat Lab 06/09/25 12:01 Completed D-Dimer Stat Lab 06/09/25 12:01 Completed Lactic Acid Stat Lab 06/09/25 12:03 Ordered Lipase Stat Lab 06/09/25 12:01 Completed Magnesium Stat Lab 06/09/25 12:01 Completed NT Pro Brain Natriuretic Pep. Stat Lab 06/09/25 12:01 Completed PT INR [Prothrombin Time INR] Stat Lab 06/09/25 12:01 Completed Troponin I Q3H Lab 06/09/25 15:08 Completed Troponin I Q3H Lab 06/09/25 18:15 Ordered Troponin I Stat Lab 06/09/25 12:01 Completed MDM Narrative Medical Decision Narrative: 49-year-old female presents to the emergency department with chest pain that started last night, differential diagnosis include but not limited to, ACS, cardiac arrhythmia, electrolyte disturbance, PE, gastritis, GERD, pancreatitis, pneumonia, costochondritis, panic attack. I discussed this patient case with the attending physician Dr. Pack Will obtain basic laboratory studies CXR, EKG, D-dimer lactic acid level lipase level magnesium level proBNP, PT/INR, troponin, will give 243 mg p.o. aspirin, 4 mg IV morphine, 4 mg Zofran for pain and nausea, will also give 0.4 mg nitroglycerin. CBC unremarkable CMP is notable for mild hyponatremia at 133, lipase in normal limits Coags within normal limits D-dimer is 0.36 Troponin is less than 0.01, proBNP is within normal limits I reviewed the patient's chest x-ray along the corresponding radiologic report, no acute abnormality. I was notified by nursing staff at approximately 1:40 PM the patient still complaining of some pain, give additional dose of 2 mg IV morphine. I reexamined the patient at approximately 2:05 PM, patient states she has had some what sounds like melena over the last couple of days and her diarrhea , will add acute GI bleed/PUD/gastritis to the differential and obtain CTA of the abdomen and CTA of the chest for further evaluation/characterization of this patient's symptomatology. Troponin is negative at less than 0.01. I reviewed the patient CTA chest without contrast, no evidence of pulmonary embolus to the segmental level, no aneurysm of the aorta, no dissection of the aorta. I reviewed the patient's CTA abdomen pelvis with and without contrast, there is a low-attenuation filling defect in the proximal aspect of the SMA, the lumen 50%, filling defect may present a small thrombus, series 5 image 49 it was present on prior study and is stable, 12 mm nodule lateral right kidney,, nonemergent evaluation of the mass with MRI with and without contrast, stable 2.6 cm left ovarian cyst was present October. Discussed results with the patient the bedside, reexamination the patient approximately 4:55 PM, patient chest pain is improved, negative troponin x 2, negative EKG, no pulmonary embolism or dissection, most likely musculoskeletal cause of the patient's chest pain, could be some gastrointestinal/PUD, no active acute GI bleed, stable findings discussed above. Patient voiced understanding and agree with current treatment plan/discharge planning, patient will need to follow-up with her PCP, GI physician, and other providers as directed. Patient was understanding and agreed the [place]reet plan/discharge plan. She was given strict ED return precautions.
[2025-06-09] MEDS: NITROGLYCERIN 0.4MG SL TABLET 0.4 MG SL (12:16)
[2025-06-09] MEDS: ASPIRIN 81MG CHEWABLE TABLET 243 MG PO (12:16)
[2025-06-09 12:20] LABS: Alanine Aminotransferase 41 U/L (12-78); Albumin Level 4.7 g/dl (3.5-5.0); Albumin/Globulin Ratio 1.5 (1.1-1.8); Alkaline Phosphatase 99 U/L (38-126); Anion Gap 18.3 mEq/L (5-15); Aspartate Amino Transferase 27 U/L (14-36); Bilirubin,Total 1.0 mg/dl (0.2-1.3); Blood Urea Nitrogen 19 mg/dl (7-17); Calcium 9.5 mg/dl (8.4-10.2); Carbon Dioxide 23 mmol/L (22.0-30.0); Chloride 96 mmol/L (98-107); Creatinine Clearance Estimated 132 mL/min (50-200); Creatinine,Serum 0.70 mg/dl (0.52-1.04); Estimated Glomerular Filt Rate 89 ml/min (>60); GFR (African American) 108 ML/MIN (>60); Globulin 3.2 g/dL (1.3-3.2); Glucose 174 mg/dl (74-100); Lipase 78 U/L (23-300); Magnesium 2.0 mg/dl (1.6-2.3); Potassium 4.3 mmoL/L (3.5-5.1); Sodium 133 mmol/L (136-145); Total Protein,Serum 7.9 g/dl (6.3-8.2)
[2025-06-09 12:22] LABS: INR 0.99 (0.9-1.1); Prothrombin Time 11.0 seconds (10.1-12.5)
[2025-06-09 12:31] LABS: D-Dimer 0.36 ug/mL (0.0-0.5)
[2025-06-09 12:32] LABS: NT Pro Brain Natriuretic Pep. < 20.0 pg/mL (0-125)
[2025-06-09 12:34] LABS: Troponin I < 0.01 ng/ml (0.00-0.034)
[2025-06-09] MEDS: MORPHINE 2MG/ML SYRINGE 2 MG IV (13:48)
--- NOTE | 2025-06-09 14:12 | CT_ITS ---
PROCEDURE INFORMATION: Exam: CTA Abdomen and Pelvis With Contrast Exam date and time: 06/09/2025 2:53 PM Age: 49 years old Clinical indication: Abdominal pain; Generalized; Additional info: Melena, abdominal/chest pain concern for gi bleed TECHNIQUE: Imaging protocol: Computed tomographic angiography of the abdomen and pelvis with contrast. Exam focused on the arteries. 3D rendering (Not supervised by radiologist): MIP and/or 3D reconstructed images were created by the technologist. Radiation optimization: All CT scans at this facility use at least one of these dose optimization techniques: automated exposure control; mA and/or kV adjustment per patient size (includes targeted exams where dose is matched to clinical indication); or iterative reconstruction. Contrast material: ISOVUE 370; Contrast volume: 80 ml; Contrast route: INTRAVENOUS (IV); COMPARISON: CT ABDOMEN PELVIS W CON 11/05/2024 8:05 PM FINDINGS: Aorta: No aortic aneurysm. No aortic dissection. Celiac trunk and mesenteric arteries: Low-attenuation Filling defect in the proximal aspect of the SMA narrows the lumen 50%. The filling defect may represent a small thrombus.. Series 5, image 49. It was present on the prior study and is stable.. Renal arteries: No occlusion or significant stenosis. Right iliac arteries: No occlusion or significant stenosis. Left iliac arteries: No occlusion or significant stenosis. Liver: No mass. Gallbladder and biliary ducts: Unremarkable. No calcified stones. No ductal dilation. Pancreas: Unremarkable. No mass. No ductal dilation. Spleen: Unremarkable. No splenomegaly. Adrenal glands: Unremarkable. No mass. Kidneys and ureters: 12 mm nodule lateral right kidney 100 Hounsfield units.. (Series 5, image 40.).. 11 mm simple cyst anterior left kidney . No follow-up imaging recommended . Subcentimeter low attenuation areas in both kidneys are too small for characterization. Stomach and bowel: Diverticulosis of the rectosigmoid. No diverticulitis Appendix: Normal appendix. Normal appendix Intraperitoneal space: Unremarkable. No free air. No significant fluid collection. Lymph nodes: Unremarkable. No enlarged lymph nodes. Urinary bladder: Unremarkable. No mass. Reproductive: Stable 2.6 cm left ovarian cyst. It was present in October. Bones/joints: No acute fracture. Soft tissues: Unremarkable. IMPRESSION: 1. Low-attenuation Filling defect in the proximal aspect of the SMA narrows the lumen 50%. The filling defect may represent a small thrombus.. Series 5, image 49. It was present on the prior study and is stable.. 2. 12 mm nodule lateral right kidney 100 Hounsfield units.. (Series 5, image 40.).Recommend nonemergent evaluation of the mass with MR without and with contrast 3. Stable 2.6 cm left ovarian cyst. It was present in October.
--- NOTE | 2025-06-09 14:12 | CT_ITS ---
PROCEDURE INFORMATION: Exam: CTA Chest With Contrast Exam date and time: 06/09/2025 2:53 PM Age: 49 years old Clinical indication: Chest wall pain; Additional info: Chest pain/hypertension TECHNIQUE: Imaging protocol: Computed tomographic angiography of the chest with contrast. Exam focused on the arteries. 3D rendering (Not supervised by radiologist): MIP and/or 3D reconstructed images were created by the technologist. Radiation optimization: All CT scans at this facility use at least one of these dose optimization techniques: automated exposure control; mA and/or kV adjustment per patient size (includes targeted exams where dose is matched to clinical indication); or iterative reconstruction. Contrast material: ISOVUE 370; Contrast volume: 80 ml; Contrast route: INTRAVENOUS (IV); COMPARISON: CT ANGIO CHEST 02/21/2024 1:40 PM FINDINGS: Pulmonary arteries: No evidence of pulmonary embolus to the segmental level. Aorta: No aneurysm of the aorta. No dissection of the aorta. Lungs: Unremarkable. No consolidation. No masses. Pleural spaces: Unremarkable. No pneumothorax. No pleural effusion. Heart: Unremarkable. No cardiomegaly. No pericardial effusion. Coronary arteries: Coronary artery calcifications may indicate coronary artery disease. Lymph nodes: Unremarkable. No enlarged lymph nodes. Bones/joints: Unremarkable. No acute fracture. Soft tissues: Unremarkable. IMPRESSION: 1. No evidence of pulmonary embolus to the segmental level. 2. No aneurysm of the aorta. 3. No dissection of the aorta.
[2025-06-09] MEDS: SODIUM CHLORIDE 0.9% 10ML SYR (RAD ONLY) 10 ML IV (15:03)
[2025-06-09] MEDS: 0.9 % SODIUM CHLORIDE 50 ML VIAL IV (15:03)
[2025-06-09] MEDS: IOPAMIDOL-370 (76%);100ML BOTTLE 80 ML IV (15:04)
[2025-06-09 15:40] LABS: Troponin I < 0.01 ng/ml (0.00-0.034)
== END 2025-06-09 17:09 | disposition home or self-care (01) ==
PROVIDERS: Physician Assistant; Emergency Provider Student in an Organized Health Care Education/Training Program; PCP Nurse Practitioner
DX: R07.89 Other chest pain (principal); R06.02 Shortness of breath; R00.0 Tachycardia, unspecified; R11.0 Nausea; I10 Essential (primary) hypertension; Z87.891 Personal history of nicotine dependence
CPT/HCPCS: 71045; 71275; 74174; 80053; 83690; 83735; 83880; 84484; 85025; 85378; 85610; 93005; 96374; 96375; 96376; 99285; J2270; J2405; Q9967

== ENCOUNTER 2025-07-09 11:26 | Outpatient (CLI) | payer OTHER, SELFPAY ==
--- OUTSIDE RECORDS SUMMARY | 2025-06-26 13:00 | XMS_ITS | Encounter Summary ---
Author Organization [facility] Address [address] [place] [address] Care Team Providers Care Clinical Statistics Manager Name Role Phone Laura Cobian Primary Care Provider + [phone] Reason for Visit * Reason Comments Chest Pain Encounter Details Date Type Department Care Team (Late st Contact Info) Description 06/26/2025 1:00 PM EDT - 06/26/2025 3:54 PM EDT Emergency [facility] [address] [place] [address] [phone] Hardy Bryan MD [address] [place] [address] Chest pain, unspecified type (Primary [...] 2:57 PM EDT Nury Dawson RN * [place] Suicide Severity Rating Scale (Screener/Recent Self-Report) Question [...] Care Everywhere. * General Headache Without Cause [id number] (Cambodian) * Nonspecific Chest Pain Adult Jqls-yq-Kxfh (Cambodian) documented in this encounter Medications at Time of Discharge amLODIPine (NORVASC) 10 MG tablet Take 1 tablet by mouth Daily. 10/05/2021 aspirin 81 MG EC tablet Take 1 tablet by mouth Daily. 12/08/2022 atorvastatin (LIPITOR) 80 MG tablet Take 1 tablet by mouth every night at bedtime. clopidogrel (PLAVIX) 75 MG tablet Take 1 tablet by mouth Daily. 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 Will obtain chest x-ray, EKG, laboratory workup including troponins, will treat with Toradol, Reglan and Benadryl for headache, nausea. Patient PERC and Wells negative for acute PE Additional Sources: External (non-ED) record review: Nuclear medicine stress test and echocardiogram from 11/28/2023 bothnegative Orders placed during this visit: Orders Placed This Encounter Procedures XR Chest 1 View [place] Draw Comprehensive Metabolic Panel High Sensitivity Troponin [...] primary care physician as well as her ortho nurse. I asked the patient to return to the ED for new or concerning symptoms. Patient voices understanding and is agreeable with the plan for discharge home. [CS] ED Course User Index [CS] Hardy Bryan MD After my consideration of clinical presentation and any laboratory/radiology studies obtained, I discussed the findings with the patient/patient account executive sales representative who is in agreement with the [...] voice recognition software. Hardy Bryan MD 06/26/25 1544 documented in this encounter Plan of Treatment [...] <6 <14 ng/L 06/26/2025 3:19 PM EDT [facility] Troponin T Numeric Delta 06/26/2025 3:19 PM EDT [facility] Comment:Unable to calculate. Blood Venipuncture / Unknown 06/26/2025 2:56 PM EDT 06/26/2025 3:01 PM EDT Narrative [facility] - 06/26/2025 3:19 PM EDT [...] Bryan MD LAB BLOOD ORDERABLES Final Result [facility]
[address] [place] [address], [place] [phone] * XR Chest 1 View (06/26/2025 1:28 [...] - 10.80 10*3/mm3 06/26/2025 1:36 PM EDT [facility] RBC 4.85 3.77 - 5.28 10*6/mm3 06/26/2025 1:36 PM EDT [facility] Hemoglobin 14.8 12.0 - 15.9 g/dL 06/26/2025 1:36 PM EDT [facility] Hematocrit 43.1 34.0 - 46.6 % 06/26/2025 1:36 PM EDT [facility] MCV 88.9 79.0 - 97.0 fL 06/26/2025 1:36 PM EDT [facility] MCH 30.5 26.6 - 33.0 pg 06/26/2025 1:36 PM EDT [facility] MCHC 34.3 31.5 - 35.7 g/dL 06/26/2025 1:36 PM EDT [facility] RDW 12.6 12.3 - 15.4 % 06/26/2025 1:36 PM EDT [facility] RDW-SD 41.2 37.0 - 54.0 fl 06/26/2025 1:36 PM EDT [facility] MPV 9.7 6.0 - 12.0 fL 06/26/2025 1:36 PM EDT [facility] Platelets 412 140 - 450 10*3/mm3 06/26/2025 1:36 PM EDT [facility] Neutrophil % 52.3 42.7 - 76.0 % 06/26/2025 1:36 PM EDT [facility] Lymphocyte % 35.8 19.6 - 45.3 % 06/26/2025 1:36 PM EDT [facility] Monocyte % 10.4 5.0 - 12.0 % 06/26/2025 1:36 PM EDT [facility] Eosinophil % 1.0 0.3 - 6.2 % 06/26/2025 1:36 PM EDT [facility] Basophil % 0.4 0.0 - 1.5 % 06/26/2025 1:36 PM EDT [facility] Immature Grans % 0.1 0.0 - 0.5 % 06/26/2025 1:36 PM EDT [facility] Neutrophils, Absolute 3.67 1.70 - 7.00 10*3/mm3 06/26/2025 1:36 PM EDT [facility] Lymphocytes, Absolute 2.51 0.70 - 3.10 10*3/mm3 06/26/2025 1:36 PM EDT [facility] Monocytes, Absolute 0.73 0.10 - 0.90 10*3/mm3 06/26/2025 1:36 PM EDT [facility] Eosinophils, Absolute 0.07 0.00 - 0.40 10*3/mm3 06/26/2025 1:36 PM EDT [facility] Basophils, Absolute 0.03 0.00 - 0.20 10*3/mm3 06/26/2025 1:36 PM EDT [facility] Immature Grans, Absolute 0.01 0.00 - 0.05 10*3/mm3 06/26/2025 1:36 PM EDT [facility] nRBC 0.0 0.0 - 0.2 /100 WBC 06/26/2025 1:36 PM EDT [facility] Blood Venipuncture / Unknown 06/26/2025 1:23 PM EDT 06/26/2025 1:25 PM EDT us Hardy Bryan MD LAB BLOOD ORDERABLES Final Result [facility]
[address] [place] [address], [place] [phone] * Light Blue Top (06/26/2025 1:23 PM EDT) Extra Tube Hold for add-ons. 06/26/2025 1:30 PM EDT [facility] Comment:Auto resulted Blood Venipuncture / Unknown 06/26/2025 1:23 PM EDT 06/26/2025 1:25 PM EDT us Hardy Bryan MD LAB BLOOD ORDER ONLY Final Result [facility]
[address] [place] [address], [place] [phone] * Gold Top - SST (06/26/2025 1:23 PM EDT) Extra Tube Hold for add-ons. 06/26/2025 1:30 PM EDT [facility] Comment:Auto resulted. Blood Venipuncture / Unknown 06/26/2025 1:23 PM EDT 06/26/2025 1:25 PM EDT us Hardy Bryan MD LAB BLOOD ORDER ONLY Final Result Performing Organization Address City/[facility]/ZIP Co de Phone Number [facility]
[address] [place] [address], [place] [phone] * Lavender Top (06/26/2025 1:23 PM EDT) Extra Tube hold for add-on 06/26/2025 1:30 PM EDT [facility] Comment:Auto resulted Blood Venipuncture / Unknown 06/26/2025 1:23 PM EDT 06/26/2025 1:25 PM EDT us Hardy Bryan MD LAB BLOOD ORDER ONLY Final Result Performing Organization Address [facility] Co de Phone Number [facility]
[address] [place] [address], [place] [phone] * Green Top (Gel) (06/26/2025 1:23 PM EDT) Extra Tube Hold for add-ons. 06/26/2025 1:30 PM EDT [facility] Comment:Auto resulted. Blood Venipuncture / Unknown 06/26/2025 1:23 PM EDT 06/26/2025 1:25 PM EDT us Hardy Bryan MD LAB BLOOD ORDER ONLY Final Result Performing Organization Address City[facility] Co de Phone Number [facility]
[address] [place] [address], [place] [phone] * High Sensitivity Troponin T (06/26/2025 1:23 PM EDT) HS Troponin T <6 <14 ng/L 06/26/2025 1:48 PM EDT [facility] Blood Venipuncture / Unknown 06/26/2025 1:23 PM EDT 06/26/2025 1:25 PM EDT Narrative [facility] - 06/26/2025 1:48 PM EDT [...] Bryan MD LAB BLOOD ORDERABLES Final Result [facility]
[address] [place] [address], * (ABNORMAL) Comprehensive Metabolic Panel (06/26/2025 1:23 PM EDT) [facility] Glucose 174(H) 65 - 99 mg/dL 06/26/2025 1:46 PM EDT [facility] BUN 20.0 6.0 - 20.0 mg/dL 06/26/2025 1:46 PM EDT [facility] Creatinine 0.72 0.57 - 1.00 mg/dL 06/26/2025 1:46 PM EDT [facility] Sodium 131(L) 136 - 145 mmol/L 06/26/2025 1:46 PM EDT [facility] Potassium 4.2 3.5 - 5.2 mmol/L 06/26/2025 1:46 PM EDT [facility] Chloride 95(L) 98 - 107 mmol/L 06/26/2025 1:46 PM EDT [facility] CO2 23.6 22.0 - 29.0 mmol/L 06/26/2025 1:46 PM EDT [facility] Calcium 9.9 8.6 - 10.5 mg/dL 06/26/2025 1:46 PM EDT [facility] Total Protein 7.7 6.0 - 8.5 g/dL 06/26/2025 1:46 PM EDT [facility] Albumin 4.4 3.5 - 5.2 g/dL 06/26/2025 1:46 PM EDT [facility] ALT (SGPT) 32 1 - 33 U/L 06/26/2025 1:46 PM EDT [facility] AST (SGOT) 10 1 - 32 U/L 06/26/2025 1:46 PM EDT [facility] Alkaline Phosphatase 103 39 - 117 U/L 06/26/2025 1:46 PM EDT [facility] Total Bilirubin 0.5 0.0 - 1.2 mg/dL 06/26/2025 1:46 PM EDT [facility] Globulin 3.3 gm/dL 06/26/2025 1:46 PM EDT [facility] A/G Ratio 1.3 g/dL 06/26/2025 1:46 PM T [facility] BUN/Creatinine Ratio 27.8(H) 7.0 - 25.0 06/26/2025 1:46 PM EDT [facility] Anion Gap 12.4 5.0 - 15.0 mmol/L 06/26/2025 1:46 PM EDT [facility] eGFR 102.0 >60.0 mL/min/1.7 3 06/26/2025 1:46 PM T [facility] Blood Venipuncture / Unknown 06/26/2025 1:23 PM EDT 06/26/2025 1:25 PM EDT [facility] - 06/26/2025 1:46 PM EDT [...] Bryan MD LAB BLOOD ORDERABLES Final Result [facility]
[address] [place] [address], * ECG 12 Lead ED Triage Standing [...] medication prescribed for a lower pain scale. ([facility]) If given for pain, use the following [...] 1304 documented in this encounter Care Teams Clinical Statistics Manager Relationship Specialty Start Date End Date Laura Cobian [address] [place] [address] PCP - General Nurse Practitioner 11/23/23 documented as of this encounter
--- OUTSIDE RECORDS SUMMARY | 2025-07-09 11:30 | XMS_ITS | Encounter Summary ---
Author Organization [facility] Address [address] [place] [address] Care Team Providers Care Supercalender Operator Name Role Phone Karime Pinto APRN, DNP Primary Care Provider + Reason for Visit * Reason Comments Med Refill Encounter Details Date Type Department Care Team (Late st Contact Info) Description 05/10/2021 Refill Lorna Bee [address] [phone] Karime Pinto APRN, DNP [address] [place] [phone] Social History Tobacco Use Types Packs/Day [...] on filedocumented in this encounter Care Teams Supercalender Operator Relationship Specialty Start Date End Date Karime Pinto APRN, [facility] [address] [place] [phone] PCP - General 04/08/21 08/23/21 documented as of this encounter
--- OUTSIDE RECORDS SUMMARY | 2025-07-09 11:30 | XMS_ITS | Encounter Summary ---
Author Organization [facility] Address [address] [place] [address] Care Team Providers Care Software Controls Engineer Name Role Phone Karime Pinto APRN, DNP Primary Care Provider + Reason for Visit * Reason Comments Med Refill Encounter Details Date Type Department Care Team (Late st Contact Info) Description 05/03/2021 Refill Lorna Bee [address] [phone] Karime Pinto APRN, DNP [address] [place] [phone] Social History Tobacco Use Types Packs/Day [...] on filedocumented in this encounter Care Teams Software Controls Engineer Relationship Specialty Start Date End Date Karime Pinto APRN, DNP [address] [place] [phone] PCP - General 04/08/21 08/23/21 documented as of this encounter
--- OUTSIDE RECORDS SUMMARY | 2025-07-09 11:30 | XMS_ITS | Encounter Summary ---
Author Organization [facility] Address [address] [place] [address] Care Team Providers Care Sexual Assault Counsellor Name Role Phone Laura Cobian Primary Care Provider + [phone] Encounter Details Date Type Department Care Team (Latest Contact Info) Description 06/26/2025 Travel Social History Tobacco Use Types Packs/Day Years Used Date Smoking Tobacco: Every Day Cigarettes Passive Smoke Exposure: Past Smokeless Tobacco: Never Alcohol Use Standard Drinks/Week Comments No 0 (1 standard drink = 0.6 oz pur e alcohol) Abuse Screen Answer Date Recorded Feels Unsafe at Home or Work/School no 06/26/2025 Feels Threatened by Someone no 08/0 11/2024 Does Anyone Try to Keep You From Having Contact with Others or Doing Things Outside Your Home? no 06/26/2025 Physical Signs of Abuse Present no 06/26/2025 Comments No Sex and Gender Information Value Date Recorded Sex Assigned at Not on file Legal Sex Female 11:53 AM EDT Gender Identity Not on file Sexual Orientation Not on file documented as of this encounter Functional Status * Calculated C-SSRS Risk Score (Lifetime/Recent) Answer Date of Assessment Author No Risk Indicated 06/26/2025 2:57 PM EDT Nury Dawson RN * [place] Suicide Severity Rating Scale (Screener/Recent Self-Report) Question Answer Date of Assessment Author 1. Wish to be (Past 1 Month) No 025 2:57 PM EDT Nury Dawson RN 2. Non-Specific Active Suici kylie Thoughts (Past 1 Month) No 06/26/2025 2:57 PM EDT Charlene Dawson, RN 6. Suicidal Behavior (Lifetime) No 2:57 PM EDT Nury Dawson, RN documented as of this encounter Plan of Treatment Not on file documented as of this encounter Visit Diagnoses Not on filedocumented in this encounter Care Teams Sexual Assault Counsellor Relationship Specialty Start Date End Date Laura Cobian [address] [place] [address] PCP - General Nurse Practitioner 11/23/23 documented as of this encounter
--- OUTSIDE RECORDS SUMMARY | 2025-07-09 11:31 | XMS_ITS | Clinical Summary ---
Author Organization [facility] Address [address] [place] [address] Care Team Providers Care Diesel Crane Operator Name Role Phone Michael Sinclair NP Primary Care Provider [phone] Allergies Active Allergy Reactions Criticality Noted Date Comments Ketorolac Itching 02/06/2023 Lisinopril Angioedema,Itching,S welling High 08/28/2016 Other reaction(s): Unknown Oxycodone-Acetaminophen Itching Low 07/06/2017 Other reaction(s): Unknown Sulfa Antibiotics Low 04/01/2015 Other reaction(s): Unknown Medications atorvastatin (Lipitor) 80 MG tablet 12/07/2022 Active Brilinta 90 MG tablet 12/11/2022 Active aspirin 81 MG EC tablet Take 81 mg by mouth 1 (one) time each day. 12/07/2022 Active metoprolol succinate XL (Toprol-XL) 50 MG 24 hr tablet Take 50 mg by mouth 1 (one) time each day. 01/16/2023 Active amLODIPine (Norvasc) 10 MG tablet Take 10 mg by mouth 1 (one) time each day. 01/16/2023 Active hydroCHLOROthiaz claudette (HYDRODiuril) 25 MG tablet Take 25 mg by mouth 1 (one) time each day. 01/16/2023 Active topiramate 50 MG tabletIndication s:Low back pain co-occurrent with neuralgia of left sciatic nerve TAKE 1 TABLET BY MOUTH EVERY DAY 30 tablet 3 08/31/2023 Active Active Problems Problem Noted Date Diagnosed Date Migraine 12/20/2022 Transient cerebral ischemia 07/13/2021 Depressive disorder 08/01/2016 Dyslipidemia 08/01/2016 Hyperlipidemia 08/01/2016 Hypertension 08/01/2016 Palpitations 08/01/2016 Syncope 08/01/2016 Overview (12/20/2022): A. Has undergone neurologic evaluation, felt to be related to orthostatic hypotension B. Echocardiogram, 01/31/13 showed an ejection fraction of 65% with trace mitral, trace tricuspid and trace pulmonic regurgitation C. Event recorder planned but not performed as the patient did not have any recurrence of symptoms D. Tilt table test to be scheduled in the future in case of recurrent symptoms. Tobacco user 08/01/2016 Overview (12/20/2022): With cessation Social History Tobacco Use Types Packs/Day Years Used Date Smoking Tobacco: Never Smokeless Tobacco: Never Tobacco Cessation:Counseling Given: Not Answered Comments Unknown Sex and Gender Information Value Date Recorded Sex Assigned at Female 04/03/2023 5:54 PM EDT Legal Sex Female 9:14 AM EST Gender Identity Female 04/03/2023 5:54 PM EDT Sexual Orientation Straight 04/03/2023 5: 54 PM EDT Last Filed Vital Signs Vital Sign Reading Time Taken Comments Blood Pressure 129/80 02/06/2023 10:30 AM EDT Pulse 90 02/06/2023 10:30 AM EDT Temperature - - Respiratory Rate 15 02/06/2023 10:30 AM EDT Oxygen Saturation - - Inhaled Oxygen Concentration - - Weight 76.7 kg (169 lb) 02/06/2023 10:30 AM EDT Height 149.9 cm (4' 11 ) 02/06/2023 10:30 AM EDT Body Mass Index 34.13 02/06/2023 10:30 AM EDT Plan of Treatment Health Maintenance Due Date Last Done Comments CT Colonography 1975 Colonoscopy 1975 Colorectal Cancer Screening 1975 FIT-DNA (Cologuard) 1975 FIT 1975 FOBT 1975 HIV Screening 1975 Hepatitis C Screening 1975 Lipid Panel 1975 Sigmoidoscopy 1975 MMR Vaccines (1 of 1 - Standard series) 1976 Hepatitis B Screening 1993 DTaP/Tdap/Td Vaccines (1 - Tdap) 1994 Hepatitis B Vaccines (1 of 3 - 19+ 3-dose series) 1994 Pap Smear 1996 Cervical Cancer Screening 2005 HPV/Cotest 2005 Mammogram 2015 Diabetes Screening 07/14/2022 07/14/2021, 0 06/09/2021, 06/05/2019 COVID-19 Vaccine (1 - season) 2024 Depression Risk Screening 11/26/2024 SDOH Screening 11/26/2024 Pneumococcal Vaccine: 50+ Years (1 of 1 - PCV) 2025 Zoster Vaccines (1 of 2) 2025 Influenza Vaccine (#1) 2025 9, 12/26/2017, 10/26/2016, Additional history exists HIB Vaccines Aged Out No longer eligi ble based on patient's age to complete this topic HPV Vaccines Aged Out No longer eligi ble based on patient's age to complete this topic Hepatitis A Vaccines Aged Out No long er eligible based on patient's age to complete this topic IPV Vaccines Aged Out No longer eligi ble based on patient's age to complete this topic Meningococcal B Vaccine Aged Out No l onger eligible based on patient's age to complete this topic Meningococcal Vaccine Aged Out No dalia ankit eligible based on patient's age to complete this topic Rotavirus Vaccines Aged Out No longer eligible based on patient's age to complete this topic Care Teams Diesel Crane Operator Relationship Specialty Start Date End Date Michael Sinclair NP [address] [place] [address] PCP - General 12/11/22
--- OUTSIDE RECORDS SUMMARY | 2025-07-09 11:31 | XMS_ITS | Clinical Summary ---
Author Organization [facility] Address [address] [place] [address] Care Team Providers Care Renewals Manager Name Role Phone Laura Cobian Primary Care Provider [phone] Allergies Active Allergy Reactions Criticality Noted Date Comments Lisinopril Angioedema 2018 Oxycodone-Acetaminophen Itching 10/30/2017 Sulfa Antibiotics 05/12/2016 Medications metoprolol succinate XL (TOPROL-XL) 50 MG 24 hr tablet Take 1 tablet by mouth Daily. 6 Active ibuprofen (ADVIL,MOTRIN) 800 MG tablet Take 1 tablet by mouth Every 6 (Six) Hours As Needed for Mild Pain. Active ondansetron (ZOFRAN) 4 MG tablet Take 1 tablet by mouth Every 6 (Six) Hours As Needed for Nausea or Vomiting. 30 tablet 1 07/15/2021 4:46 PM EDT 1 Active Additional Information Patient not taking.Reported on 11/23/2023 promethazine (PHENERGAN) 12.5 MG tablet Take 1 tablet by mouth Every 8 (Eight) Hours As Needed for Nausea or Vomiting. 30 tablet 1 07/15/2021 4:46 PM EDT 1 Active Additional Information Patient not taking.Reported on 11/23/2023 amLODIPine (NORVASC) 10 MG tablet Take 1 tablet by mouth Daily. Active nortriptyline (PAMELOR) 25 MG capsule Take 1 capsule by mouth Every Night. please schedule follow up for additional refills 30 capsule 11/16/202 3 Active Additional Information Patient not taking.Reported on 11/23/2023 sennosides-docu sate (Senna S) 8.6-50 MG per tablet Take 2 tablets by mouth At Night As Needed for Constipation for up to 7 days. PRN constipation 14 tablet 3 11/25/20 30 Active HYDROcodone-chandra taminophen (NORCO) 5-325 MG per tabletIndicatio ns:Left upper quadrant abdominal pain Take 1 tablet by mouth Every 6 (Six) Hours As Needed for Severe Pain. 12 tablet 3 Active hydrOXYzine pamoate (VISTARIL) 50 MG capsule Take 1 capsule by mouth 3 (Three) Times a Day As Needed for Anxiety. Active pantoprazole (PROTONIX) 40 MG EC tablet Take 1 tablet by mouth Daily. Active sucralfate (CARAFATE) 1 g tablet Take 1 tablet by mouth 4 (Four) Times a Day. Active clopidogrel (PLAVIX) 75 MG tablet Take 1 tablet by mouth Daily. Active atorvastatin (LIPITOR) 80 MG tablet Take 1 tablet by mouth every night at bedtime. Active aspirin 81 MG EC tablet Take 1 tablet by mouth Daily. 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 30 tablet 2 3 Active hydroCHLOROthia zide 25 MG tablet Take 1 tablet by mouth Daily. Active Creon [id number] units capsule delayed-release particles capsule Take 1 capsule by mouth 3 (Three) Times a Day With Meals. Active ketorolac (TORADOL) 10 MG tablet Take 1 tablet by mouth Every 6 (Six) Hours As Needed for Moderate Pain. 20 tablet 4 Active famotidine (PEPCID) 20 MG tablet Take 1 tablet by mouth 2 (Two) Times a Day. 10 tablet 4 Active Active Problems Problem Noted Date Diagnosed Date TIA (transient ischemic attack) 07/13/2021 Syncope 08/01/2016 Overview (08/01/2016): A. Has undergone neurologic evaluation, felt to be related to orthostatic hypotension B. Echocardiogram, 01/31/13 showed an ejection fraction of 65% with trace mitral, trace tricuspid and trace pulmonic regurgitation C. Event recorder planned but not performed as the patient did not have any recurrence of symptoms D. Tilt table test to be scheduled in the future in case of recurrent symptoms. Hypertension 08/01/2016 Palpitations 08/01/2016 Hyperlipidemia 08/01/2016 Tobacco abuse 08/01/2016 Overview (08/01/2016): With cessation Depression 08/01/2016 Dyslipidemia 08/01/2016 Encounters Date Type Department Care Team Description 06/26/2025 1:00 PM EDT - 06/26/2025 3:54 PM EDT Emergency [facility] [address] [place] [phone] Hardy Bryan MD Chest pain, unspecified type (Primary Dx); Acute nonintractable headache, unspecified headache type Discharge Disposition: Home or Self Care 06/26/2025 Travel from Last 3 Months Family History Medical History Relation Name Comments Heart disease Father Breast cancer Maternal Grandmother X2 Relation Name Status Comments Father Alive Maternal Grandmother X2 Alive Social History Tobacco Use Types Packs/Day Years Used Date Smoking Tobacco: Every Day Cigarettes Passive Smoke Exposure: Past Smokeless Tobacco: Never Alcohol Use Standard Drinks/Week Comments No 0 (1 standard drink = 0.6 oz pur e alcohol) Abuse Screen Answer Date Recorded Feels Unsafe at Home or Work/School no 06/26/2025 Feels Threatened by Someone no 080 11/2024 Does Anyone Try to Keep You [...] Mass Index 38.38 06/26/2025 12:58 PM EDT Plan of Treatment Health Maintenance Due Date Last Done Comments Annual Gynecologic Pelvic an d Breast Exam 1975 DIABETIC EYE EXAM 1985 DIABETIC FOOT EXAM 1985 URINE MICROALBUMIN-CREATININ E RATIO (uACR) 1985 Pneumococcal Vaccine 50+ (1 of 2 - PCV) 1994 PAP SMEAR 1996 Hepatitis B (2 of 3 - 19+ 3- dose series) 11/11/2001 10/14/2001 ANNUAL PHYSICAL 03/27/2018 TDAP/TD VACCINES (2 - Td or Tdap) 04/30/2020 010 COLOGUARD 2020 COLON CANCER SCREENING 5 YEA R SIGMOIDOSCOPY 2020 COLONOSCOPY [address] CANCER SCREENING 2020 CT COLONOGRAPHY 2020 FECAL OCCULT BLOOD TEST 2020 FIT Testing (1 year) 2020 HEMOGLOBIN A1C 01/14/2022 07/14/2021, 06/26, 06/09/2021, Additional history exists LIPID PANEL 07/14/2022 07/14/2021, 05/26, 06/05/2019 COVID-19 Vaccine (1 - 2023-2 5 season) 2024 ZOSTER VACCINE (1 of 2) 2025 INFLUENZA VACCINE 08/26/2025 08/28/2019, , 10/26/2016, Additional history exists MAMMOGRAM 01/04/2026 01/04/2024, 07/2024, 06/13/2021 HEPATITIS C SCREENING Completed 12/04/2019 Procedures Procedure Name Priority Date/Time Associated Diagnosis Comments HIGH SENSITIVITIY TROPONIN T 1HR STAT 06/26/2025 2:56 PM EDT XR CHEST 1 VW STAT 06/26/2025 1:28 PM EDT LIGHT BLUE TOP STAT 06/26/2025 1:23 PM EDT GOLD TOP - SST STAT 06/26/2025 1:23 PM EDT LAVENDER TOP STAT 06/26/2025 1:23 PM EDT DK GREEN TOP STAT 06/26/2025 1:23 PM EDT CBC AND DIFFERENTIAL STAT 06/26/2025 1:23 PM EDT CBC WITH AUTO DIFFERENTIAL STAT 06/26/2025 1:23 PM EDT TROPONIN STAT 06/26/2025 1:23 PM EDT COMPREHENSIVE METABOLIC PANEL STAT 06/26/2025 1:23 PM EDT RAINBOW DRAW STAT 06/26/2025 1:23 PM EDT ECG 12-LEAD STAT 06/26/2025 1:09 PM EDT HEMOGLOBIN A1C Routine 07/14/2021 6:31 AM EDT LIPID PANEL Routine 07/14/2021 6:31 AM EDT MAMMO SCREENING DIGITAL TOMOSYNTHESIS BILATERAL W CAD Routine 06/13/2021 3:32 PM EDT Visit for screening mammogram HEPATITIS C ANTIBODY Routine 12/04/2019 3:22 PM EST Screening examination for venereal disease from Last 3 Months or Most Recently Relevant to Health Maintenance Results * High Sensitivity Troponin T 1Hr (06/26/2025 2:56 PM EDT) HS Troponin T <6 <14 ng/L 06/26/2025 3:19 PM EDT [facility] Troponin T Numeric Delta 06/26/2025 3:19 PM EDT [facility] Comment:Unable to calculate. Blood Venipuncture / Unknown 06/26/2025 2:56 PM EDT 06/26/2025 3:01 PM EDT Narrative [facility] - 06/26/2025 3:19 PM EDT [...] Bryan MD LAB BLOOD ORDERABLES Final Result [facility]
[address] [place] [address], * XR Chest 1 View (06/26/2025 1:28 [...] DIAGNOSTIC IMAGIN G ORDERABLES Final Result * Gold Top - SST (06/26/2025 1:23 PM EDT) Extra Tube Hold for add-ons. 06/26/2025 1:30 PM EDT [facility] Comment:Auto resulted. Blood Venipuncture / Unknown 06/26/2025 1:23 PM EDT 06/26/2025 1:25 PM EDT us Hardy Bryan MD LAB BLOOD ORDER ONLY Final Result Performing Organization Address [facility]/ZIP Co de Phone Number [facility]
[address] [place] [address], * Green Top (Gel) (06/26/2025 1:23 PM EDT) Extra Tube Hold for add-ons. 06/26/2025 1:30 PM EDT [facility] Comment:Auto resulted. Blood Venipuncture / Unknown 06/26/2025 1:23 PM EDT 06/26/2025 1:25 PM EDT us Hardy Bryan MD LAB BLOOD ORDER ONLY Final Result Performing Organization Address [facility]/ZIP Co de Phone Number [facility]
[address] [place] [address], [place] [phone] * CBC Auto Differential (06/26/2025 1:23 PM EDT) WBC 7.02 3.40 - 10.80 10*3/mm3 06/26/2025 1:36 PM EDT [facility] RBC 4.85 3.77 - 5.28 10*6/mm3 06/26/2025 1:36 PM EDT [facility] Hemoglobin 14.8 12.0 - 15.9 g/dL 06/26/2025 1:36 PM EDT [facility] Hematocrit 43.1 34.0 - 46.6 % 06/26/2025 1:36 PM EDT [facility] MCV 88.9 79.0 - 97.0 fL 06/26/2025 1:36 PM EDT [facility] MCH 30.5 26.6 - 33.0 pg 06/26/2025 1:36 PM EDT [facility] MCHC 34.3 31.5 - 35.7 g/dL 06/26/2025 1:36 PM EDT [facility] RDW 12.6 12.3 - 15.4 % 06/26/2025 1:36 PM EDT [facility] RDW-SD 41.2 37.0 - 54.0 fl 06/26/2025 1:36 PM EDT [facility] MPV 9.7 6.0 - 12.0 fL 06/26/2025 1:36 PM EDT [facility] Platelets 412 140 - 450 10*3/mm3 06/26/2025 1:36 PM EDT [facility] Neutrophil % 52.3 42.7 - 76.0 % 06/26/2025 1:36 PM EDT [facility] Lymphocyte % 35.8 19.6 - 45.3 % 06/26/2025 1:36 PM EDT [facility] Monocyte % 10.4 5.0 - 12.0 % 06/26/2025 1:36 PM EDT [facility] Eosinophil % 1.0 0.3 - 6.2 % 06/26/2025 1:36 PM EDT [facility] Basophil % 0.4 0.0 - 1.5 % 06/26/2025 1:36 PM EDT [facility] Immature Grans % 0.1 0.0 - 0.5 % 06/26/2025 1:36 PM EDT [facility] Neutrophils, Absolute 3.67 1.70 - 7.00 10*3/mm3 06/26/2025 1:36 PM EDT [facility] Lymphocytes, Absolute 2.51 0.70 - 3.10 10*3/mm3 06/26/2025 1:36 PM EDT [facility] Monocytes, Absolute 0.73 0.10 - 0.90 10*3/mm3 06/26/2025 1:36 PM EDT [facility] Eosinophils, Absolute 0.07 0.00 - 0.40 10*3/mm3 06/26/2025 1:36 PM EDT [facility] Basophils, Absolute 0.03 0.00 - 0.20 10*3/mm3 06/26/2025 1:36 PM EDT [facility] Immature Grans, Absolute 0.01 0.00 - 0.05 10*3/mm3 06/26/2025 1:36 PM EDT [facility] nRBC 0.0 0.0 - 0.2 /100 WBC 06/26/2025 1:36 PM EDT [facility] Blood Venipuncture / Unknown 06/26/2025 1:23 PM EDT 06/26/2025 1:25 PM EDT us Hardy Bryan MD LAB BLOOD ORDERABLES Final Result [facility]
[address] [place] [id number], * Lavender Top (06/26/2025 1:23 PM EDT) Extra Tube hold for add-on 06/26/2025 1:30 PM EDT [facility] Comment:Auto resulted Blood Venipuncture / Unknown 06/26/2025 1:23 PM EDT 06/26/2025 1:25 PM EDT us Hardy Bryan MD LAB BLOOD ORDER ONLY Final Result Performing Organization Address City/[facility]/ZIP Co de Phone Number [facility]
[address] [place] [address], [place] [phone] * Light Blue Top (06/26/2025 1:23 PM EDT) Extra Tube Hold for add-ons. 06/26/2025 1:30 PM EDT [facility] Comment:Auto resulted Blood Venipuncture / Unknown 06/26/2025 1:23 PM EDT 06/26/2025 1:25 PM EDT us Hardy Bryan MD LAB BLOOD ORDER ONLY Final Result Performing Organization Address [facility] Co de Phone Number [facility]
[address] [place] [address], [place] [phone] * High Sensitivity Troponin T (06/26/2025 1:23 PM EDT) Pathologist [facility] HS Troponin T <6 <14 ng/L 06/26/2025 1:48 PM EDT [facility] Blood Venipuncture / Unknown 06/26/2025 1:23 PM EDT 06/26/2025 1:25 PM EDT Narrative [facility] - 06/26/2025 1:48 PM EDT [...] Bryan MD LAB BLOOD ORDERABLES Final Result Performing Organization Address [facility] Co de Phone Number [facility]
[address] [place] [address], [place] [phone] * (ABNORMAL) Comprehensive Metabolic Panel (06/26/2025 1:23 PM EDT) [facility] Signature Glucose 174(H) 65 - 99 mg/dL 06/26/2025 1:46 PM EDT [facility] BUN 20.0 6.0 - 20.0 mg/dL 06/26/2025 1:46 PM EDT [facility] Creatinine 0.72 0.57 - 1.00 mg/dL 06/26/2025 1:46 PM EDT [facility] Sodium 131(L) 136 - 145 mmol/L 06/26/2025 1:46 PM EDT [facility] Potassium 4.2 3.5 - 5.2 mmol/L 06/26/2025 1:46 PM EDT [facility] Chloride 95(L) 98 - 107 mmol/L 06/26/2025 1:46 PM EDT [facility] CO2 23.6 22.0 - 29.0 mmol/L 06/26/2025 1:46 PM EDT [facility] Calcium 9.9 8.6 - 10.5 mg/dL 06/26/2025 1:46 PM EDT [facility] Total Protein 7.7 6.0 - 8.5 g/dL 06/26/2025 1:46 PM EDT [facility] Albumin 4.4 3.5 - 5.2 g/dL 06/26/2025 1:46 PM EDT [facility] ALT (SGPT) 32 1 - 33 U/L 06/26/2025 1:46 PM EDT [facility] AST (SGOT) 10 1 - 32 U/L 06/26/2025 1:46 PM EDT [facility] Alkaline Phosphatase 103 39 - 117 U/L 06/26/2025 1:46 PM EDT [facility] Total Bilirubin 0.5 0.0 - 1.2 mg/dL 06/26/2025 1:46 PM EDT [facility] Globulin 3.3 gm/dL 06/26/2025 1:46 PM EDT [facility] A/G Ratio 1.3 g/dL 06/26/2025 1:46 PM EDT [facility] BUN/Creatinine Ratio 27.8(H) 7.0 - 25.0 06/26/2025 1:46 PM EDT [facility] Anion Gap 12.4 5.0 - 15.0 mmol/L 06/26/2025 1:46 PM EDT [facility] eGFR 102.0 >60.0 mL/min/1.7 3 06/26/2025 1:46 PM EDT [facility] Blood Venipuncture / Unknown 06/26/2025 1:23 PM EDT 06/26/2025 1:25 PM EDT Narrative [facility] - 06/26/2025 1:46 PM EDT GFR [...] does not include race as a factor Hardy Bryan MD LAB BLOOD ORDERABLES Final Result [facility]
[address] [place] [id number], * ECG 12 Lead ED Triage Standing Order; Chest Pain (06/26/2025 1:09 PM EDT) Hardy Bryan MD ECG ORDERABLES Final Result * (ABNORMAL) Hemoglobin A1c (07/14/2021 6:31 AM EDT) Hemoglobin A1C 5.70(H) 4.80 - 5.60 % [facility] Blood Venipuncture / Unknown 07/14/2021 6:31 AM EDT 07/14/2021 6:53 AM EDT Narrative [facility] - 07/14/2021 7:13 AM EDT Hemoglobin A1C Ranges: Increased Risk for Diabetes 5.7% to 6.4% Diabetes >= 6.5% Diabetic Goal < 7.0% Ayesha Jennings APRN LAB BLOOD ORDERABLES Final Result [facility]
[address] [place] [address], * (ABNORMAL) Lipid Panel (07/14/2021 6:31 AM EDT) Total Cholesterol 192 0 - 200 mg/dL 07/14/2021 7:38 AM EDT [facility] Triglycerides 326(H) 0 - 150 mg/dL 07/14/2021 7:38 AM EDT [facility] HDL Cholesterol 34(L) 40 - 60 mg/dL 07/14/2021 7:38 AM EDT [facility] LDL Cholesterol 103(H) 0 - 100 mg/dL 07/14/2021 7:38 AM EDT [facility] VLDL Cholesterol 55(H) 5 - 40 mg/dL 07/14/2021 7:38 AM EDT [facility] LDL/HDL Ratio 2.73 07/14/2021 7:38 AM EDT [facility] Blood Venipuncture / Unknown 07/14/2021 6:31 AM EDT 07/14/2021 6:53 AM EDT Narrative [facility] - 07/14/2021 7:38 AM EDT Cholesterol Reference Ranges (U.S. Department of Health and Human Services ATP III Classifications) Desirable <200 mg/dL Borderline High 200-239 mg/dL High Risk >240 mg/dL Triglyceride Reference Ranges (U.S. Department of Health and Human Services ATP III Classifications) Normal <150 mg/dL Borderline High 150-199 mg/dL High 200-499 mg/dL Very High >500 mg/dL HDL Reference Ranges (U.S. Department of Health and Human Services ATP III Classifcations) Low <40 mg/dl (major risk factor for CHD) High >60 mg/dl ('negative' risk factor for CHD) LDL Reference Ranges (U.S. Department of Health and Human Services ATP III Classifcations) Optimal <100 mg/dL Near Optimal 100-129 mg/dL Borderline High 130-159 mg/dL High 160-189 mg/dL Very High >189 mg/dL Ayesha Louise Jennings REIMBURSEMENT DIRECTOR LAB BLOOD ORDERABLES Final Result [facility]
[address] [place] [address], * Mammo Screening Digital Tomosynthesis Bilateral With CAD (06/13/2021 3:32 PM EDT) Anatomical Region Laterality Modality Breast N/A Mammography 06/17/2021 10:2 8 AM EDT Impressions 06/17/2021 10:35 AM EDT No findings suspicious for malignancy. BI-RADS CATEGORY: 1, NEGATIVE RECOMMENDATION: Yearly mammogram, yearly clinical breast exam, and encourage self breast awareness. CAD was used. The standard false negative rate of mammography is between 10% and 25%. Complex patterns or increased breast density will markedly elevate the false negative rate of mammography. A letter, in lay terminology, with the results of this exam will be mailed to the patient. This report was finalized on 06/17/2021 10:[address] Mary Rey MD. Narrative 06/17/2021 10:35 AM EDT ROUTINE SCREENING MAMMOGRAM WITH TOMOSYNTHESIS HISTORY: 45-year-old female for routine screening IMAGE COMPARISON: 05/23/2012 TECHNIQUE: Low dose full field digital breast tomosynthesis imaging was performed with 2D and 3D acquisitions consisting of bilateral CC and MLO views. FINDINGS: There are scattered areas of fibroglandular density. There is no worrisome mass, group of calcifications, or architectural distortion to suggest malignancy. Shana Min APRN IMG MAMMOGRAPHY ORD ERABLES Final Result * Hepatitis C Antibody (12/04/2019 3:22 PM EST) Hepatitis C Ab Non-Reacti ve Non-Reacti ve 12/04/2019 11:49 PM EST [facility] Blood Venipuncture / Unknown 12/04/2019 3:22 PM EST 12/04/2019 3:22 PM EST Narrative [facility] - 12/04/2019 11:49 PM EST Results may be falsely decreased if patient taking Biotin. Graciela Darnell APRN LAB BLOOD ORDERABLES Final Resu lt [facility]
[address] [place] [address], from Last 3 Months or Most Recently Relevant to Health Maintenance Insurance Advance Directives * CPR (Attempt to Resuscitate) (Latest Code Status on File) Date Activated Date Inactivated Comments 07/13/2021 1:18 PM 07/15/2021 8:40 PM Question Answer Comments Code Status (Patient has no pulse and is not breathing): CPR (Attempt to Resuscitate) Medical Interventions (Patie nt has pulse or is breathing): Full Care Teams Renewals Manager Relationship Specialty Start Date End Date Lauar Cobian [address] [place] [phone] PCP - General Nurse Practitioner 11/23/23
--- OUTSIDE RECORDS SUMMARY | 2025-07-09 11:31 | XMS_ITS | Encounter Summary ---
Author Organization [facility] Address [address] [place] [address] Care Team Providers Care Compensation And Benefits Administrator Name Role Phone Michael Sinclair NP Primary Care Provider [phone] Encounter Details Date Type Department Care Team ([facility] st Contact Info) Description 01/24/2023 Telephone [facility] [address] [place] [address] Maren Napier MD [address], [address] [place], [place] [id number] Social History Tobacco Use Types Packs/Day Years Used Date Smoking Tobacco: Never Assessed Comments Unknown Sex and Gender Information Value Date Recorded Sex Assigned at Female 04/03/2023 5:54 PM EDT Legal Sex Female 9:14 AM EST Gender Identity Female 04/03/2023 5:54 PM EDT Sexual Orientation Straight 04/03/2023 5: 54 PM EDT documented as of this encounter Miscellaneous Notes * Telephone Encounter - Hardy Verde MA - 01/24/2023 4:10 PM EST See if she can come in on 02/06 sometime. Its ok to double book on this day just not with a new patient or at 11 or 1130 * Telephone Encounter - Sadiq Sarkar - 01/24/2023 2:51 PM EST Call back number: [phone] Person Calling (patient/caregiver/facility etc): Patient Patient's provider: Qu[facility] Brief description of call: PT called to r/s missed appt with Dr Napier, she was asking if she could schedule tomorrow or some time next week. If caller reports any of the following symptoms STOP and WARM transfer to the clinic: ??? Paralysis or numbness or inability to move parts of the face, arm, leg - particularly on one side of the body. ??? New onset of confusion including trouble speaking ??? New onset of headache with vomiting ??? New onset of blurred vision ??? New onset of impaired balance coordination ??? Changes in mood ??? New onset of urinary incontinence/retention ??? Infection or protruding objects from incision or wound site ??? Itchy/swelling/redness/dizziness ??? Any issues with a pump ??? Any post-op complications including redness, swelling, warmth, drainage, odor, fever documented in this encounter Plan of Treatment Not on file documented as of this encounter Visit Diagnoses Not on filedocumented in this encounter Care Teams Compensation And Benefits Administrator Relationship Specialty Start Date End Date Michael Sinclair NP [address] [place] [phone] PCP - General 12/11/22 documented as of this encounter
--- OUTSIDE RECORDS SUMMARY | 2025-07-09 11:31 | XMS_ITS | Encounter Summary ---
Author Organization [facility] Address [address] [place] [address] Care Team Providers Care Cleaning Machine Operator Name Role Phone Karime Pinto APRN, DNP Primary Care Provider + Reason for Visit * Reason Comments Med Refill Encounter Details Date Type Department Care Team (Late st Contact Info) Description 07/05/2021 Refill Lorna Bee [address] [phone] Karime Pinto APRN, DNP [address] [place] [phone] Social History Tobacco Use Types Packs/Day [...] documented as of this encounter Care Teams Cleaning Machine Operator Relationship Specialty Start Date End Date Karime Pinto APRN, CHARLEY [address] [place] [phone] PCP - General 04/08/21 08/23/21 documented as of this encounter
--- OUTSIDE RECORDS SUMMARY | 2025-07-09 11:31 | XMS_ITS | Clinical Summary ---
Author Organization [facility] Address [address] [place] [address] Phone Care Team Providers Care Medical Diagnostic Radiographer Name Role Phone Unavailable Primary Care Provider [...] Sigmoidoscopy 2020 Virtual Colonography 2020 COVID-19 Vaccine (2023- season) 2024 Pneumococcal Vaccine 50+ (1 of 1 - PCV) 2025 Zoster (1 of 2) 2025 Influenza Vaccine (#1) [...] MD Impressions 01/09/2024 8:21 AM EST Negative ([id number]) ~ RECOMMENDATION: Routine screening mammogram in 1 [...] the next mammogram, in accordance with the [employer] and the Society of Breast Imaging recommendations. Narrative 01/09/2024 8:21 AM EST Procedure:MM MAMMO DIGITAL ADRIANNE SCREEN BILAT ~ Reason for exam: screening, asymptomatic. Z12.31-Encounter for screening mammogram for malignant neoplasm of [id number] ~ MM MAMMO DIGITAL ADRIANNE SCREEN BILAT [...] for screening mammogram for malignant neoplasm of [id number] ~ MM MAMMO DIGITAL ADRIANNE SCREEN BILAT Bilateral CC and MLO view(s) were taken. There are scattered fibroglandular densities. Prior study comparison: Compared with prior studies the most recentbeing none No mammographic evidence of malignancy. ~ ADDENDUM: ~ IMPRESSION: Negative ([id number]) ~ RECOMMENDATION: Routine screening mammogram in 1 [...] the next mammogram, in accordance with the [employer] and the Society of Breast Imaging recommendations. us Not In [facility] Provider IMG MAMMOGRAPHY ORDERABLES Edited Result - Final from Last 3 Months or Most Recently Relevant to Health Maintenance Insurance [id number]
--- OUTSIDE RECORDS SUMMARY | 2025-07-09 11:31 | XMS_ITS | Clinical Summary ---
Author Organization [facility] Address [address] [place] [address] Care Team Providers Care Train Crew Member Name Role Phone Unavailable Primary Care Provider [...] TIMES DAILY TESTING 11/02/2020 Active Glucose Blood (Figure 1UCH ULTRA BLUE ) TEST 3 TIMES DAILY. [...] 2020 Sigmoidoscopy 2020 [facility]-Colorectal Cancer Screening 2020 [id number] Vaccine (1 - 2023- season) 2024 [facility]-Pneumococcal Vaccine: 50+ Years (1 of 1 - PCV) 2025 [facility]-Zoster Vaccines (1 of 2) 2025 [facility]-Influenza [...] patient's age to complete this topic Insurance [employer] [facility] MEDICAID
--- OUTSIDE RECORDS SUMMARY | 2025-07-09 11:31 | XMS_ITS | Encounter Summary ---
Author Organization [facility] Address [address] [place] [address] Care Team Providers Care Aviation Consultant Name Role Phone Laura Cobian Primary Care Provider + [phone] Encounter Details Date Type Department Care Team (Late st Contact Info) Description 12/03/2013 Conversion Encounter [facility] HISTORICAL CONV [address] [place] [address] Interface, See Report Social History Tobacco Use Types Packs/Day Years Used Date Smoking Tobacco: Never Assessed Comments Unknown Sex and Gender Information Value Date Recorded Sex Assigned at Not on file Legal Sex Female 11:53 AM EDT Gender Identity Not on file Sexual Orientation Not on file documented as of this encounter ED Notes * Interface, See Report - 12/03/2013 1:43 PM EST Clinical Report - Physicians/Mid Levels [facility] Emergency Department [address] [place] [id number] 12/03/2013 Patient: DONYA JERONIMO Sex: F : 1975 Age: 38y Arrived- By ambulance. Historian- patient. HISTORY OF PRESENT ILLNESS Chief Complaint: CHEST PAIN. At its maximum, severity described as severe. When seen in the E.D., it was gone. Modifying factors. Not worsened by anything. Not relieved by anything. It is described as sharp and it is described as located in the central chest and left chest area and radiating to the upper back. This started just prior to arrival and is now gone. Onset during rest. The patient has had nausea. No vomiting or diaphoresis. She has had mild difficulty breathing. (She was sitting on couch, developed sharp mid chest pain. Lasted a few minutes, resolved. Had 3 more episodes and pain and symptom free since then. Short of breath with it, and nauseated. At baseline currently. Has had this before.). Similar symptoms previously: Many times. Recent medical care: Not recently seen/assessed. REVIEW OF SYSTEMS No fever, chills, pedal edema, calf pain or headache. No abdominal pain. She has had a mild nonproductive cough. All systems otherwise negative, except as recorded above. PAST HISTORY See nurses notes. Hypertension. SOCIAL HISTORY Heavy tobacco smoker- less than 1 pack per day. No alcohol use. ADDITIONAL NOTES The nursing notes have been reviewed. PHYSICAL EXAM Vital Signs: Have been reviewed. Appearance: Alert. Oriented X3. No acute distress. Eyes: Pupils equal, round and reactive to light. Eyes normal inspection. No scleral icterus or pale conjunctivae. ENT: Normal ENT inspection. Neck: Normal inspection. Neck supple. CVS: Normal heart rate and rhythm. Heart sounds normal. Respiratory: No respiratory distress. Breath sounds normal. Abdomen: Soft and nontender. Skin: Skin warm and dry. Normal skin color. Normal skin turgor. Extremities: Extremities exhibit normal ROM. No calf tenderness. No lower extremity edema. Neuro: Oriented X 3. No motor deficit. No sensory deficit. LABS, X-RAYS, AND EKG EKG: No acute ischemia. Bradycardia (55). Sinus bradycardia. Normal P waves. Normal QRS complex. Normal ST and T waves. The study has been interpreted contemporaneously by me. Laboratory Tests: Laboratory tests have been ordered, with results reviewed and considered in the medical decision making process. D-Dimer: (KAYLAN: 12/03/2013 13:55)( MsgRcvd 12/03/2013 15:42) Final results Test Result Flag Units (Reference) D Dimer Quant <0.19 mg/L FEU (0.00-0.50) Negative predictive value for exclusion of venous thromboembolism: < or= 0.5 mg/L (FEU) Chest 1V Port: (KAYLAN: 12/03/2013 16:20)( [facility] 16[facility]20[facility] Final results ED BED 11 Exam Report AP PORTABLE ERECT CHEST 12/03/2013 AT 1343 HOURS INDICATION- Shortness of air, nausea FINDINGS- The heart size is normal. There is no pneumothorax or pleural fluid collection. The lungs are free of focal opacities. DT- 12/03/2013 DE- 12/03/2013 Workday Manager- UMA MENDEZ Reading Radiologist- AARON MEDINA Releasing Radiologist- AARON MEDINA Released Date Time- 12/03/13 1620 Read By AARON MEDINA Released By AARON MEDINA Lipase: (KAYLAN: 12/03/2013 13:55)( [place] [facility] 12/03/[facility] 14:21) Final results Test Result Flag Units (Reference) Lipase 24 U/L (6-52) Amylase: (KAYLAN: 12/03/2013 13:55)( [place] [facility] 12/03/2013 14:21) Final results Test Result Flag Units (Reference) Amylase 26 Units/L (20-104) BNP (Natriuretic Peptide): (KAYLAN: 12/03/2013 13:55)( Msc[facility] 12/03/2013 14:28) Final results Test Result Flag Units (Reference) BNP 18 pg/mL (0-100) PTT: (KAYLAN: 12/03/2013 13:55)( [place] [facility] [place] 12/03/2013 14:20) Final results Test Result Flag Units (Reference) PTT 26 Seconds (24-31) PTT = The equivalent PTT values for the therapeutic range of heparinlevels at 0.3 to 0.5 U/ml are 45 to 60 seconds.PTT = The equivalent PTT values for the therapeutic range of heparinlevels at 0.3 to 0.5 U/ml are 45 to 60 seconds. PT with INR: (KAYLAN: 12/03/2013 13:55)( [facility] 12/03/2013 14:20) Final results Test Result Flag Units (Reference) Protime 10.7 Seconds (9.6-11.5) INR 1.00 Therapeutic Ranges for INR:2.0-3.0 (PT 20-30) 2.5-3.5 (PT 25-34) CMP: (KAYLAN: 12/03/2013 13:55)( [facility] 12/03/2013 14:21) Final results Test Result Flag Units (Reference) Glucose 92 mg/dL (70-100) BUN 12 mg/dL (6-20) Creatinine 0.7 mg/dL (0.6-1.3) Sodium 137 mmol/L (136-145) Potassium 3.7 mmol/L (3.4-5.4) Chloride 105 mmol/L (98-107) Carbon Dioxide 26 mmol/L (20-31) Calcium 9.4 mg/dL (8.7-10.4) Alkaline Phos 69 Units/L (25-100) AST 13 Units/L (8-33) ALT 18 Units/L (7-40) Bilirubin,Total 0.5 mg/dL (0.3-1.2) Total Protein 7.4 g/dL (6.4-8.3) Albumin 4.2 g/dL (3.4-4.8) Ext. MDRD GFR 101 ml/min/1.732 National Kidney Foundation Guidelines Stage Description GFR 1 Normal or High 90+ 2 Mild decrease 60-89 3 Moderate decrease 30-59 4 Severe decrease 15-29 5 Kidney failure <15 Anion Gap 6 mmol/L (3-11) CBC w Auto Diff: (KAYLAN: 12/03/2013 13:55)( [place] [facility] [place] 12/03/2013 14:12) Final results Test Result Flag Units (Reference) WBC 6.56 K/mcL (3.50-10.80) RBC 4.24 M/mcL (3.89-5.14) Hemoglobin 13.7 g/dL (11.5-15.5) Hematocrit 39.6 % (34.5-44.0) MCV 93.4 fL (80.0-99.0) MCH 32.3 H pg (27.0-31.0) MCHC 34.6 g/dL (32.0-36.0) RDWCV 13.5 % (11.3-14.5) Platelet 333 K/mcL (150-450) Abs Neutrophil 3.56 K/mcL (1.50-8.30) Abs Lymph 2.25 K/mcL (0.60-4.80) Abs [place] 0.62 K/mcL (0.00-1.00) Abs Eos 0.11 K/mcL (0.10-0.30) Abs Baso 0.01 K/mcL (0.00-0.20) Neutrophils 54.1 % (41.0-71.0) Lymphocytes 34.3 % (24.0-44.0) Monocytes 9.5 % (0.0-12.0) Eosinophils 1.7 % (0.0-3.0) Basophils 0.2 % (0.0-1.0) Immature Gran 0.2 % (0.0-0.6) Troponin-I Rapid (ER: (KAYLAN: 12/03/2013 15:59)( NjgRcvd 12/03/2013 16:15) Final results Test Result Flag Units (Reference) Rapid Troponin I 0.00 ng/mL (0.00-0.60) Different methodologies are used for cardiac testing between the ED andmain laboratory. Refer to the appropriate reference range forinterpretation. Troponin-I Rapid (ER: (KAYLAN: 12/03/2013 14:08)( NjgRcvd 12/03/2013 14:25) Final results Test Result Flag Units (Reference) Rapid Troponin I 0.00 ng/mL (0.00-0.60) Different methodologies are used for cardiac testing between the ED andmain laboratory. Refer to the appropriate reference range forinterpretation. . PROGRESS AND PROCEDURES Course of Care: Remains pain free in ED. Does not sound cardiac in nature and she has 2 negative EKG and trop. Negative D-dimer. Has had this before without clear diagnosis. Possibly reflux/esophageal spasm, can't be sure. Followup needed. Patient/family counseled. Old medical records reviewed. Disposition: Discharged home in stable condition. CLINICAL IMPRESSION Atypical chest pain .12 lead EKG performed. INSTRUCTIONS Warnings: Further evaluation is necessary in order to conduct further tests. It is very important to follow up with a physician. GENERAL WARNINGS: Return or contact your physician immediately if your condition worsens or changes unexpectedly, if not improving as expected, or if other problems arise. Follow-up: Follow up with your doctor in about two days. (Electronically signed by Nicholas Esquivel MD 12/09/2013 23:06) documented in this encounter Plan of Treatment Not on file documented as of this encounter Procedures Procedure Name Priority Date/Time Associated Diagnosis Comments POCT TROPONIN I, RAPID Routine 4 3:59 PM EST POCT TROPONIN I, RAPID Routine 4 2:08 PM EST XR CHEST 1 VW Routine 12/03/2013 2:03 PM EST APTT Routine 12/03/2013 1:55 PM EST PROTIME-INR Routine 12/03/2013 1:55 PM EST D-DIMER, QUANTITATIVE Routine 12/03/2013 1:55 PM EST CBC AND DIFFERENTIAL Routine 12/03/2013 1:55 PM EST B-TYPE NATRIURETIC PEPTIDE Routine 12/03/2013 1:55 PM EST LIPASE Routine 12/03/2013 1:55 PM EST AMYLASE Routine 12/03/2013 1:55 PM EST COMPREHENSIVE METABOLIC PANEL Routine 12/03/2013 1:55 PM EST SCANNED EKG 12/03/2013 documented in this encounter Results * POCT Troponin, Rapid (12/03/2013 3:59 PM EST) Troponin I 0.00 0.00 - 0.60 ng/mL [facility] Comment: Different methodologies are used for cardiac testing between the ED and main laboratory. Refer to the appropriate reference range for interpretation. Blood specimen (specimen) 12/03/2013 3:59 PM EST Narrative [facility] - 12/03/2013 4:15 PM EST Specimen Type: Blood Historical Provider MD POINT OF CARE TEST ORDERA BLES Final Result Performing Organization Address [facility] Co de Phone Number [facility] [address] [place] [address], * POCT Troponin, Rapid (12/03/2013 2:08 PM EST) Troponin I 0.00 0.00 - 0.60 ng/mL [facility] Comment: Different methodologies are used for cardiac testing between the ED and main laboratory. Refer to the appropriate reference range for interpretation. Blood specimen (specimen) 12/03/2013 2:08 PM EST Narrative [facility] - 12/03/2013 2:25 PM EST Specimen Type: Blood Historical Provider MD POINT OF CARE TEST ORDERA BLES Final Result Performing Organization Address [facility]/ZIP Co de Phone Number [facility] [address] [place] [address], * XR chest 1 vw (12/03/2013 2:03 PM EST) Anatomical Region Laterality Modality Body N/A Radiographic Tammie ging 12/03/2013 2:03 PM EST Narrative 12/03/2013 4:02 PM EST AP PORTABLE ERECT CHEST 12/03/2013 AT 1343 HOURS INDICATION: Shortness of air, nausea FINDINGS: The heart size is normal. There is no pneumothorax or pleural fluid collection. The lungs are free of focal opacities. DE: 12/03/2013 Workday Managerleyda MEDINA Releasing Pily MEDINA Released Date Time- 12/03/131619 Procedure Note Aaron Ledbetter MD - 08/18/2015 AP PORTABLE ERECT CHEST 12/03/2013 AT 1343 HOURS INDICATION: Shortness of air, nausea FINDINGS: The heart size is normal. There is no pneumothorax or pleural fluid collection. The lungs are free of focal opacities. DE: 12/03/2013 Damian MEDINA Releasing Pily MEDINA Released Date Time- 12/03/131619 us Albert Mason MD IMG DIAGNOSTIC IMAGING ORDERAB LES Final Result * D-dimer, quantitative (12/03/2013 1:55 PM EST) D-Dimer, Quant <0.19 0.00 - 0.50 mg/L FEU [facility] Comment: DF by IF @ 12/03/2013 15:41 Negative predictive value for exclusion of venous thromboembolism: < or = 0.5 mg/L (FEU) Blood specimen (specimen) 12/03/2013 1:55 PM EST [facility] - 12/03/2013 3:42 PM EST Specimen Type: Blood Nicholas Esquivel MD LAB BLOOD ORDERABLES Chika l Result Performing Organization Address [facility]/State/ZIP Co de Phone Number [facility] [address] [place] [address], * Lipase (12/03/2013 1:55 PM EST) Lipase 24 6 - 52 U/L [facility] Blood specimen (specimen) 12/03/2013 1:55 PM EST [facility] - 12/03/2013 2:21 PM EST Specimen Type: Blood us Albert Mason MD LAB BLOOD ORDERABLES Final Res ult Performing Organization Address [facility] Co de Phone Number [facility] [address] [place] [address], [place] [phone] * Amylase (12/03/2013 1:55 PM EST) Amylase 26 20 - 104 Units/L [facility] Blood specimen (specimen) 12/03/2013 1:55 PM EST [facility] - 12/03/2013 2:21 PM EST Specimen Type: Blood us Albert Mason MD LAB BLOOD ORDERABLES Final Res ult Performing Organization Address [facility] Co de Phone Number [facility] [address] [place] [address], [place] [phone] * BNP (12/03/2013 1:55 PM EST) BNP 18 0 - 100 pg/mL [facility] Blood specimen (specimen) 12/03/2013 1:55 PM EST [facility] - 12/03/2013 2:28 PM EST Specimen Type: Blood Albert Mason MD LAB BLOOD ORDERABLES Final Res ult Performing Organization Address [facility] de Phone Number [facility] [address] [place] [address], * APTT (12/03/2013 1:55 PM EST) PTT 26 24 - 31 Seconds [facility] Comment: US by IF @ 12/03/2013 14:20 PTT = The equivalent PTT values for the therapeutic range of heparin levels at 0.3 to 0.5 U/ml are 45 to 60 seconds. PTT = The equivalent PTT values for the therapeutic range of heparin levels at 0.3 to 0.5 U/ml are 45 to 60 seconds. Blood specimen (specimen) 12/03/2013 1:55 PM EST [facility] - 12/03/2013 2:20 PM EST Specimen Type: Blood us Albert Mason MD LAB BLOOD ORDERABLES Final Res ult Performing Organization Address [facility] de Phone Number [facility] [address] [place] [address], * Protime-INR (12/03/2013 1:55 PM EST) Protime 10.7 9.6 - 11.5 Seconds [facility] INR 1.00 [facility] Comment: US by IF @ 12/03/2013 14:20 Therapeutic Ranges for INR: 2.0-3.0 (PT 20-30) 2.5-3.5 (PT 25-34) Blood specimen (specimen) 12/03/2013 1:55 PM EST Narrative [facility] - 12/03/2013 2:20 PM EST Specimen Type: Blood us Albert Mason MD LAB BLOOD ORDERABLES Final Res ult [facility] [address] [place] [address], * Comprehensive metabolic panel (12/03/2013 1:55 PM EST) Glucose 92 70 - 100 mg/dL [facility] BUN 12 6 - 20 mg/dL [facility] Creatinine 0.7 0.6 - 1.3 mg/dL [facility] Sodium 137 136 - 145 mmol/L [facility] Potassium 3.7 3.4 - 5.4 mmol/L [facility] Chloride 105 98 - 107 mmol/L [facility] CO2 26 20 - 31 mmol/L [facility] Calcium 9.4 8.7 - 10.4 mg/dL [facility] Alkaline Phosphatase 69 25 - 100 Units/L [facility] AST (SGOT) 13 8 - 33 Units/L [facility] ALT (SGPT) 18 7 - 40 Units/L [facility] Total Bilirubin 0.5 0.3 - 1.2 mg/dL [facility] Total Protein 7.4 6.4 - 8.3 g/dL [facility] Albumin 4.2 3.4 - 4.8 g/dL [facility] eGFR 101 ml/min/1.7 32 [facility] Comment: DF by IF @ 12/03/2013 14:21 National Kidney Foundation Guidelines Stage Description GFR 1 Normal or High 90+ 2 Mild decrease 60-89 3 Moderate decrease 30-59 4 Severe decrease 15-29 5 Kidney failure <15 Anion Gap 6 3 - 11 mmol/L [facility] Blood specimen (specimen) 12/03/2013 1:55 PM EST Narrative [facility] - 12/03/2013 2:21 PM EST Specimen Type: Blood us Albert Mason MD LAB BLOOD ORDERABLES Final Res ult [facility] [address] [place] [address], * (ABNORMAL) CBC and Differential (12/03/2013 1:55 PM EST) WBC 6.56 3.50 - 10.80 K/[facility] RBC 4.24 3.89 - 5.14 /[facility] Hemoglobin 13.7 11.5 - 15.5 g/dL [facility] Hematocrit 39.6 34.5 - 44.0 % [facility] MCV 93.4 80.0 - 99.0 fL [facility] MCH 32.3(H) 27.0 - 31.0 pg [facility] MCHC 34.6 32.0 - 36.0 g/dL [facility] RDW-CV 13.5 11.3 - 14.5 % [facility] Platelets 333 150 - 450 [facility] Neutrophils Absolute 3.56 1.50 - 8.30 [facility] Lymphocytes Absolute 2.25 0.60 - 4.80 [facility] Monocytes Absolute 0.62 0.00 - 1.00 [facility] Eosinophils Absolute 0.11 0.10 - 0.30 [facility] Basophils Absolute 0.01 0.00 - 0.20 [facility] Neutrophil Rel % 54.1 41.0 - 71.0 % [facility] Lymphocyte Rel % 34.3 24.0 - 44.0 % [facility] Monocyte Rel % 9.5 0.0 - 12.0 % [facility] Eosinophil Rel % 1.7 0.0 - 3.0 % [facility] Basophil Rel % 0.2 0.0 - 1.0 % [facility] Immature Granulocyte Rel % 0.2 0.0 - 0.6 % [facility] Blood specimen (specimen) 12/03/2013 1:55 PM EST Narrative [facility] - 12/03/2013 2:12 PM EST Specimen Type: Blood us Albert Mason MD LAB BLOOD ORDERABLES Final Res ult [facility] [address] [place] [address], * SCANNED EKG (12/03/2013) [facility] New Onbase ECG ORDERABLES Final Result documented in this encounter Visit Diagnoses Not on filedocumented in this encounter Additional Health Concerns Infection Onset Date Last Indicated Resolved Time COVID Screen (preop/placement) 07/13/2021 07/13/2021 07/13/2021 1:51 PM EDT documented as of this encounter Care Teams Aviation Consultant Relationship Specialty Start Date End Date Laura Cobian [address] [place] [address] PCP - General Nurse Practitioner 11/23/23 documented as of this encounter
[2025-07-09 12:18] LABS: Hematocrit 41.9 % (37.0-47.0); Hemoglobin 13.9 g/dL (12.2-16.2); Immature Granulocytes % 0.3 %; Mean Corpuscular HGB Conc 33.2 g/dL (31.8-35.4); Mean Corpuscular Hemoglobin 29.8 pg (27.0-31.2); Mean Corpuscular Volume 89.9 fl (81-99); Nucleated Red Blood Cells % 0 %; Platelet Count 345 K/mm3 (142-424); Red Blood Count 4.66 M/mm3 (4.20-5.40); Red Cell Distribution Width-SD 42.8 fL; White Blood Count 6.3 K/mm3 (4.8-10.8)
[2025-07-09 12:28] LABS: Alanine Aminotransferase 40 U/L (12-78); Albumin Level 4.4 g/dl (3.5-5.0); Alkaline Phosphatase 108 U/L (38-126); Anion Gap 9.5 mEq/L (5-15); Aspartate Amino Transferase 22 U/L (14-36); Bilirubin,Direct 0.0 mg/dl (0.0-0.4); Bilirubin,Indirect 0.6 mg/dL (0.0-0.9); Bilirubin,Total 0.6 mg/dl (0.2-1.3); Bilirubin,Unconjugated 0.6 mg/dL (0.0-1.1); Blood Urea Nitrogen 18 mg/dl (7-17); Calcium 9.4 mg/dl (8.4-10.2); Carbon Dioxide 29 mmol/L (22.0-30.0); Chloride 99 mmol/L (98-107); Cholesterol 164 mg/dl (140-200); Creatinine,Serum 0.70 mg/dl (0.52-1.04); Estimated Glomerular Filt Rate 89 ml/min (>60); GFR (African American) 107 ML/MIN (>60); Glucose 175 mg/dl (74-100); HDL Cholesterol 48 mg/dl (40-60); Magnesium 2.1 mg/dl (1.6-2.3); Potassium 4.5 mmoL/L (3.5-5.1); Sodium 133 mmol/L (136-145); Total Protein,Serum 7.5 g/dl (6.3-8.2); Triglycerides 181 mg/dl (30-150)
[2025-07-09 12:34] LABS: D-Dimer 0.57 ug/mL (0.0-0.5)
[2025-07-09 12:50] LABS: Troponin I < 0.01 ng/ml (0.00-0.034)
[2025-07-09 12:58] LABS: Thyroid Stimulating Hormone 1.14 uIU/mL (0.465-4.68)
[2025-07-09 13:00] LABS: Free T4 (Free Thyroxine) 1.33 ng/dl (0.78-2.19)
--- NOTE | 2025-07-09 15:30 | CA_ITS ---
FINAL REPORT TECHNIQUE: Compression gerardo scale and Doppler evaluation CLINICAL HISTORY: Left leg pain/edema and chest pain, denies trauma, elevated d-dimer. FINDINGS: Femoral and popliteal veins show normal compressibility and flow. Visualized portion of the calf veins are patent by Doppler exam. IMPRESSION: No evidence of left lower extremity deep venous thrombosis Reviewed, Interpreted and Dictated by Zeyad Salvador MD Transcribed by Germania Mcghee Authenticated and [facility]
--- NOTE | 2025-07-09 16:15 | CT_ITS ---
FINAL REPORT TECHNIQUE: Thin section axial images were obtained from the lung apices through the upper abdomen without contrast. This study was performed with techniques to keep radiation doses as low as reasonably achievable, (ALARA). Individualized dose reduction techniques using automated exposure control or adjustment of mA and/or kV according to the patient's size were employed. CLINICAL HISTORY: blurry vision, left sided weakness/numbness COMPARISON: CTA of the chest 06/09/2025 FINDINGS: There is no mediastinal, hilar, or axillary lymphadenopathy. No pleural or pericardial effusion. The heart size is normal. There is a 4 mm subpleural right upper lobe nodule on image 29 of series 2, which is unchanged. There is a right middle lobe 4 mm nodule which is also stable. There is a 9 mm nodule along the right major fissure on image 43, which is stable. There are no new nodules or consolidation. Limited, unenhanced evaluation of the upper abdomen is without acute abnormality. There is no acute osseous abnormality. IMPRESSION: No acute intrathoracic abnormality. Stable pulmonary nodules. Continued follow-up recommended. Reviewed, Interpreted and Dictated by Skylar Shell MD Transcribed by Whitney Aguiar Authenticated and . [facility]
--- NOTE | 2025-07-09 16:15 | CT_ITS ---
FINAL REPORT TECHNIQUE: Thin section axial images were obtained from skull base to vertex without contrast. Coronal reconstruction images were obtained from the axial data. Exam was performed using dose reduction techniques such as automated exposure control, adjustment of the mA and kV according to patient size, and use of iterative reconstruction technique. CLINICAL HISTORY: Blurry vision, left sided weakness/numbness COMPARISON: 02/21/2024 FINDINGS: There is no mass effect or midline shift. There is no hydrocephalus. There is no intracranial hemorrhage. The posterior fossa is without acute abnormality. The basilar cisterns are preserved. The soft tissues are without acute abnormality. No acute osseous abnormality is identified. IMPRESSION: No acute intracranial abnormality. Reviewed, Interpreted and Dictated by Skylar Shell MD Transcribed by Whitney Aguiar Authenticated and [facility]
== END 2025-07-09 23:59 | disposition home or self-care (01) ==
PROVIDERS: PCP Nurse Practitioner; Visit Provider Nurse Practitioner Family
DX: I25.119 Atherosclerotic heart disease of native coronary artery with unspecified angina pectoris (principal); H53.8 Other visual disturbances; M79.605 Pain in left leg; R78.9 Finding of unspecified substance, not normally found in blood; I10 Essential (primary) hypertension; E78.5 Hyperlipidemia, unspecified; K21.9 Gastro-esophageal reflux disease without esophagitis; E66.9 Obesity, unspecified; R91.8 Other nonspecific abnormal finding of lung field; R42 Dizziness and giddiness; R94.31 Abnormal electrocardiogram [ECG] [EKG]; R53.1 Weakness; R20.0 Anesthesia of skin; Z95.5 Presence of coronary angioplasty implant and graft
CPT/HCPCS: 36415; 70450; 71250; 80048; 80061; 80076; 83735; 84439; 84443; 84484; 85025; 85378; 93971

== ENCOUNTER 2025-08-13 06:20 | Emergency (ER) | payer OTHER, SELFPAY ==
--- OUTSIDE RECORDS SUMMARY | 2025-06-26 13:00 | XMS_ITS | Encounter Summary ---
Author Organization [facility] Address [address] [place] [address] Care Team Providers Care Truck Trailer Final Inspector Name Role Phone Laura Cobian Primary Care Provider + [phone] Reason for Visit * Reason Comments Chest Pain Encounter Details Date Type Department Care Team (Late st Contact Info) Description 06/26/2025 1:00 PM EDT - 06/26/2025 3:54 PM EDT Emergency [facility] EMERGENCY DEPARTMENT [address] [place] [address] [phone] Hardy Bryan MD [address] [place] [address] Chest pain, unspecified type (Primary [...] 2:57 PM EDT Nury Dawson RN * [place] Suicide Severity Rating Scale (Screener/Recent Self-Report) Question [...] Care Everywhere. * General Headache Without Cause [id number] (Tuvaluan) * Nonspecific Chest Pain Adult [id number]-[id number] (Tuvaluan) documented in this encounter Medications at Time of Discharge amLODIPine (NORVASC) 10 MG tablet Take 1 tablet by mouth Daily. 10/05/2021 aspirin 81 MG EC tablet Take 1 tablet by mouth Daily. 12/08/2022 atorvastatin (LIPITOR) 80 MG tablet Take 1 tablet by mouth every night at bedtime. clopidogrel (PLAVIX) 75 MG tablet Take 1 tablet by mouth Daily. Creon [id number] units capsule delayed-release particles capsule Take 1 [...] 24 hr tabletIndications :Coronary artery disease of [place] artery of [place] heart with stable angina pectoris Take 1 [...] test since then, regular follow-up with her oven loader which has been benign. Will obtain chest x-ray, EKG, laboratory workup including troponins, will treat with Toradol, Reglan and Benadryl for headache, nausea. Patient PERC and Wells negative for acute PE Additional Sources: External (non-ED) record review: Nuclear medicine stress test and echocardiogram from 11/28/2023 bothnegative Orders placed during this visit: Orders Placed This Encounter Procedures XR Chest 1 View [place] Draw Comprehensive Metabolic Panel High Sensitivity Troponin [...] primary care physician as well as her oven loader. I asked the patient to return to the ED for new or concerning symptoms. Patient voices understanding and is agreeable with the plan for discharge home. [CS] ED Course User Index [CS] Hardy Bryan MD After my consideration of clinical presentation and any laboratory/radiology studies obtained, I discussed the findings with the patient/patient outside sales account representative who is in agreement with the [...] voice recognition software. Hardy Bryan MD 06/26/25 1548 documented in this encounter Plan of Treatment [...] <6 <14 ng/L 06/26/2025 3:19 PM EDT [facility] Troponin T Numeric Delta 06/26/2025 3:19 PM EDT [facility] Comment:Unable to calculate. Blood Venipuncture / Unknown 06/26/2025 2:56 PM EDT 06/26/2025 3:01 PM EDT Narrative [facility] - 06/26/2025 3:19 PM EDT High [...] Bryan MD LAB BLOOD ORDERABLES Final Result [facility]
[address] [place] [address], [place] [phone] * XR Chest 1 View (06/26/2025 1:28 [...] - 10.80 10*3/mm3 06/26/2025 1:36 PM EDT [facility] RBC 4.85 3.77 - 5.28 10*6/mm3 06/26/2025 1:36 PM EDT [facility] Hemoglobin 14.8 12.0 - 15.9 g/dL 06/26/2025 1:36 PM EDT [facility] Hematocrit 43.1 34.0 - 46.6 % 06/26/2025 1:36 PM EDT [facility] MCV 88.9 79.0 - 97.0 fL 06/26/2025 1:36 PM EDT [facility] MCH 30.5 26.6 - 33.0 pg 06/26/2025 1:36 PM EDT [facility] MCHC 34.3 31.5 - 35.7 g/dL 06/26/2025 1:36 PM EDT [facility] RDW 12.6 12.3 - 15.4 % 06/26/2025 1:36 PM EDT [facility] RDW-SD 41.2 37.0 - 54.0 fl 06/26/2025 1:36 PM EDT [facility] MPV 9.7 6.0 - 12.0 fL 06/26/2025 1:36 PM EDT [facility] Platelets 412 140 - 450 10*3/mm3 06/26/2025 1:36 PM EDT [facility] Neutrophil % 52.3 42.7 - 76.0 % 06/26/2025 1:36 PM EDT [facility] Lymphocyte % 35.8 19.6 - 45.3 % 06/26/2025 1:36 PM EDT [facility] Monocyte % 10.4 5.0 - 12.0 % 06/26/2025 1:36 PM EDT [facility] Eosinophil % 1.0 0.3 - 6.2 % 06/26/2025 1:36 PM EDT [facility] Basophil % 0.4 0.0 - 1.5 % 06/26/2025 1:36 PM EDT [facility] Immature Grans % 0.1 0.0 - 0.5 % 06/26/2025 1:36 PM EDT [facility] Neutrophils, Absolute 3.67 1.70 - 7.00 10*3/mm3 06/26/2025 1:36 PM EDT [facility] Lymphocytes, Absolute 2.51 0.70 - 3.10 10*3/mm3 06/26/2025 1:36 PM EDT [facility] Monocytes, Absolute 0.73 0.10 - 0.90 10*3/mm3 06/26/2025 1:36 PM EDT [facility] Eosinophils, Absolute 0.07 0.00 - 0.40 10*3/mm3 06/26/2025 1:36 PM EDT [facility] Basophils, Absolute 0.03 0.00 - 0.20 10*3/mm3 06/26/2025 1:36 PM EDT [facility] Immature Grans, Absolute 0.01 0.00 - 0.05 10*3/mm3 06/26/2025 1:36 PM EDT [facility] nRBC 0.0 0.0 - 0.2 /100 WBC 06/26/2025 1:36 PM EDT [facility] Blood Venipuncture / Unknown 06/26/2025 1:23 PM EDT 06/26/2025 1:25 PM EDT us Hardy Bryan MD LAB BLOOD ORDERABLES Final Result [facility]
[address] [place] [address], [place] [phone] * Light Blue Top (06/26/2025 1:23 PM EDT) Extra Tube Hold for add-ons. 06/26/2025 1:30 PM EDT [facility] Comment:Auto resulted Blood Venipuncture / Unknown 06/26/2025 1:23 PM EDT 06/26/2025 1:25 PM EDT us Hardy Bryan MD LAB BLOOD ORDER ONLY Final Result [facility]
[address] [place] [address], [place] [phone] * Gold Top - SST (06/26/2025 1:23 PM EDT) Extra Tube Hold for add-ons. 06/26/2025 1:30 PM EDT [facility] Comment:Auto resulted. Blood Venipuncture / Unknown 06/26/2025 1:23 PM EDT 06/26/2025 1:25 PM EDT us Hardy Bryan MD LAB BLOOD ORDER ONLY Final Result Performing Organization Address City/[facility]/ZIP Co de Phone Number [facility]
[address] [place] [address], [place] [phone] * Lavender Top (06/26/2025 1:23 PM EDT) Extra Tube hold for add-on 06/26/2025 1:30 PM EDT [facility] Comment:Auto resulted Blood Venipuncture / Unknown 06/26/2025 1:23 PM EDT 06/26/2025 1:25 PM EDT us Hardy Bryan MD LAB BLOOD ORDER ONLY Final Result Performing Organization Address [facility] Co de Phone Number [facility]
[address] [place] [address], [place] [phone] * Green Top (Gel) (06/26/2025 1:23 PM EDT) Extra Tube Hold for add-ons. 06/26/2025 1:30 PM EDT [facility] Comment:Auto resulted. Blood Venipuncture / Unknown 06/26/2025 1:23 PM EDT 06/26/2025 1:25 PM EDT us Hardy Bryan MD LAB BLOOD ORDER ONLY Final Result Performing Organization Address City/[facility] Co de Phone Number [facility]
[address] [place] [address], [place] [phone] * High Sensitivity Troponin T (06/26/2025 1:23 PM EDT) HS Troponin T <6 <14 ng/L 06/26/2025 1:48 PM EDT [facility] Blood Venipuncture / Unknown 06/26/2025 1:23 PM EDT 06/26/2025 1:25 PM EDT Narrative [facility] - 06/26/2025 1:48 PM EDT High [...] Bryan MD LAB BLOOD ORDERABLES Final Result [facility]
[address] [place] [address], * (ABNORMAL) Comprehensive Metabolic Panel (06/26/2025 1:23 PM EDT) [facility] Glucose 174(H) 65 - 99 mg/dL 06/26/2025 1:46 PM EDT [facility] BUN 20.0 6.0 - 20.0 mg/dL 06/26/2025 1:46 PM EDT [facility] Creatinine 0.72 0.57 - 1.00 mg/dL 06/26/2025 1:46 PM EDT [facility] Sodium 131(L) 136 - 145 mmol/L 06/26/2025 1:46 PM EDT [facility] Potassium 4.2 3.5 - 5.2 mmol/L 06/26/2025 1:46 PM EDT [facility] Chloride 95(L) 98 - 107 mmol/L 06/26/2025 1:46 PM EDT [facility] CO2 23.6 22.0 - 29.0 mmol/L 06/26/2025 1:46 PM EDT [facility] Calcium 9.9 8.6 - 10.5 mg/dL 06/26/2025 1:46 PM EDT [facility] Total Protein 7.7 6.0 - 8.5 g/dL 06/26/2025 1:46 PM EDT [facility] Albumin 4.4 3.5 - 5.2 g/dL 06/26/2025 1:46 PM EDT [facility] ALT (SGPT) 32 1 - 33 U/L 06/26/2025 1:46 PM EDT [facility] AST (SGOT) 10 1 - 32 U/L 06/26/2025 1:46 PM EDT [facility] Alkaline Phosphatase 103 39 - 117 U/L 06/26/2025 1:46 PM EDT [facility] Total Bilirubin 0.5 0.0 - 1.2 mg/dL 06/26/2025 1:46 PM EDT [facility] Globulin 3.3 gm/dL 06/26/2025 1:46 PM EDT [facility] A/G Ratio 1.3 g/dL 06/26/2025 1:46 PM T [facility] BUN/Creatinine Ratio 27.8(H) 7.0 - 25.0 06/26/2025 1:46 PM EDT [facility] Anion Gap 12.4 5.0 - 15.0 mmol/L 06/26/2025 1:46 PM EDT [facility] eGFR 102.0 >60.0 mL/min/1.7 3 06/26/2025 1:46 PM T [facility] Blood Venipuncture / Unknown 06/26/2025 1:23 PM EDT 06/26/2025 1:25 PM EDT [facility] - 06/26/2025 1:46 PM EDT [...] Bryan MD LAB BLOOD ORDERABLES Final Result [facility]
[address] [place] [address], * ECG 12 Lead ED Triage Standing [...] medication prescribed for a lower pain scale. ([facility]) If given for pain, use the [...] 1304 documented in this encounter Care Teams Truck Trailer Final Inspector Relationship Specialty Start Date End Date Laura Cobian [address] [place] [address] PCP - General Nurse Practitioner 11/23/23 documented as of this encounter
[2025-08-13] VITALS (15 sets, daily range): BP systolic 78–168; BP diastolic 52–114; PULSE 65–85; RESP 12–21; TEMP 36.7–37; O2SAT 95–99; BMI 39.2
--- NOTE | 2025-08-13 06:19 | ECG_ITS ---
APPROVED REPORT Exam: Resting ECG HR:82 bpm ECG Measurements Heart Rate 82 AXES MA 164 P 61 QRSd 99 QRS 4 QT 422 T 25 QTc 460 Conclusion SINUS RHYTHM MINIMAL ST DEPRESSION [0.025+ mV ST DEPRESSION] BORDERLINE ECG Electronically signed by : NALDO HERNANDES, 08/16/2025 08:39:13
--- NOTE | 2025-08-13 06:28 | XR_ITS ---
FINAL REPORT CLINICAL HISTORY: chest pain, blurred vision COMPARISON: 12/10/2024 FINDINGS: A single frontal view of the chest was obtained. No acute pulmonary opacity is present. There is no evidence of effusion or pneumothorax. Mediastinum is unremarkable. Heart size is normal. IMPRESSION: No acute abnormality. Reviewed, Interpreted and Dictated by Zeyad Salvador MD Transcribed by Germania Mcghee Authenticated and [facility]
--- NOTE | 2025-08-13 06:35 | ED_ITS ---
Discharge Plan Disposition Patient Disposition: Home, Self-Care Prescriptions Prescriptions: No Action (DME) FreeStyle Lite Strips Strip See Rx Instructions .ROUTE .MEDSUPPLY Qty: 10 Patient Comments: USE DIRECTED TO TEST THREE TIMES DAILY Rx Instructions: As directed nitroglycerin 0.4 mg tablet, sublingual 0.4 mg sublingual Q5-15M PRN (Reason: chest pain) Qty: 30 0RF Rx Instructions: do not exceed 3 doses per episode amlodipine 2.5 mg tablet 2.5 mg PO DAILY Qty: 90 3RF metoprolol succinate 100 mg tablet extended release 24 hr 100 mg PO DAILY Qty: 90 2RF hydrochlorothiazide 25 mg tablet 25 mg PO BID 90 Days Qty: 180 3RF aspirin 81 mg tablet,delayed release (DR/EC) 81 mg PO DAILY 90 Days Qty: 90 3RF magnesium citrate Solution 150 ml PO DAILY senna 8.6 mg capsule 8.6 mg PO BID hydralazine 25 mg tablet 50 mg PO DAILY esomeprazole magnesium [Nexium] 40 mg capsule,delayed release(DR/EC) 40 mg PO DAILY Qty: 90 3RF prucalopride [Motegrity] 2 mg tablet 2 mg PO DAILY Qty: 90 3RF Rx Instructions: Please take 1 tablet p.o. every morning Creon 36,000-114,000- 180,000 unit capsule,delayed release(DR/EC) 2 cap PO .COMPLEX Qty: 720 3RF Rx Instructions: 2 caps orally with meals and 1 with snacks ranolazine 1,000 mg tablet extended release 12 hr 1,000 mg PO BID Qty: 60 5RF glipizide 5 mg tablet extended release 24hr 5 mg PO DAILY isosorbide mononitrate 30 mg tablet extended release 24 hr 30 mg PO DAILY Qty: 90 2RF atorvastatin 80 mg tablet 80 mg PO DAILY Qty: 90 3RF clopidogrel 75 mg tablet 75 mg PO DAILY Qty: 90 3RF spironolactone 25 mg tablet 25 mg PO BID Qty: 60 11RF sucralfate 1 gram tablet See Rx Instructions .ROUTE .COMPLEX Qty: 90 0RF Dose Instruction: TAKE 1 TABLET BY MOUTH EVERY 6 HOURS NEEDED FOR DYSPEPSIA Rx Instructions: TAKE 1 TABLET BY MOUTH EVERY 6 HOURS NEEDED FOR DYSPEPSIA hydroxyzine pamoate 50 mg capsule 50 mg PO TIDP PRN (Reason: Anxiety) Activity Restrictions/Add. Instructions Additional Instructions/Restrictions: At this time it was felt you are safe to be discharged home. If new or worsening symptoms please do not hesitate to return the emergency department. For your chest pain please schedule appoint with Dr. Reyes as soon as you are able and follow-up with Dr. Barajas for your chronic epigastric pain. As discussed there was an abnormality found on your CT imaging but this is felt to be nonemergent and you need to keep following up with Dr. Palacios and hopefully she will be able to help address your symptoms. Clinical Impressions Clinical Impression: Chronic epigastric pain, Chest pain, Vision changes, Paresthesias, Abnormal CT scan of head Print Language Print Language: Turkish Discharge ED Provider: Blaine Jiang General Adult HPI <Eric Cutler MD - Last Filed: 08/13/25 06:55> General Chief complaint: Chest Pain Stated complaint: chest pain Time Seen by Provider: 08/13/25 06:22 Mode of Arrival: Ambulatory Source of Information: Patient Description of Symptoms (Recalled from ER Triage Doc. by RN): PT presents to the ED for evaluation of CP that started when she woke up at 0430 on this date. POT stated she had a period of uncoordinated walking and had a ringing in years. PT has c/o N/V and x1 episode during arrival. PT stated she has 1 stent and has a hx of Hypertension. PT takes Plavix. History of Present Illness HPI narrative: 50-year-old female with history of anxiety, pancreatic and severe with chronic, coronary artery disease with history of recurrent ER evaluations for chest pain, chronic headaches, presents for multiple complaints. She reports that she has burning epigastric pain that awoke her from sleep. She reports that she is having tingling radiating to bilateral arms and legs, worse in the left arm. When she got up she felt like she was having while walking because she felt uncoordinated. Associated with that, she has been having ringing in both the ears. She has not had ringing in the ears before. Her medication she is that she recently increased her ranolazine. She denies shortness of breath. She denies any weakness. She reports nausea with 1 episode of vomiting. She took aspirin and urine prior to arrival. Related Data Home Medications ?Medication ?Instructions ?Recorded ?Confirmed glipizide 5 mg tablet, extended 5 mg PO DAILY 07/09/24 08/04/25 release 24 hr blood sugar diagnostic (FreeStyle #10 ea 02/23/2508/20 Lite Strips) hydroxyzine pamoate 50 mg capsule 50 mg PO TIDP PRN An xiety 03/10/25 08/04/25 hydralazine 25 mg tablet 50 mg PO DAILY 08/04/25 magnesium citrate 150 ml PO DAILY 08/04/2508/20 sennosides 8.6 mg capsule (senna) 8.6 mg PO BID 08/04/25 Previous Rx's ?Medication ?Instructions ?Recorded isosorbide mononitrate 30 mg 30 mg PO DAILY #90 tabs 0 01/19/25 tablet,extended release 24 hr atorvastatin 80 mg tablet 80 mg PO DAILY #90 tabs 12/28 05/20 clopidogrel 75 mg tablet 75 mg PO DAILY #90 tabs 12/28 05/20 nitroglycerin 0.4 mg sublingual 0.4 mg sublingual Q5-1 5M PRN chest 02/23/25 tablet pain #30 tabs spironolactone 25 mg tablet 25 mg PO BID #60 tabs 04/19 amlodipine 2.5 mg tablet 2.5 mg PO DAILY #90 tabs aspirin 81 mg tablet,delayed 81 mg PO DAILY 90 days #9 0 tabs 05/25/25 release hydrochlorothiazide 25 mg tablet 25 mg PO BID 90 days #180 tabs 05/25/25 metoprolol succinate 100 mg 100 mg PO DAILY #90 tabs 0 05/25/25 tablet,extended release 24 hr sucralfate 1 gram tablet See Rx Instructions .Route 0 06/11/25 .COMPLEX #90 tabs ranolazine 1,000 mg 1,000 mg PO BID #60 tabs tablet,extended release,12 hr esomeprazole magnesium 40 mg 40 mg PO DAILY #90 caps 0 08/04/25 capsule,delayed release (Nexium) [id number] 2 cap PO .COMPLEX #720 caps 08/04/25 36,000-114,000-180,000 unit capsule,delay rel (Creon) prucalopride 2 mg tablet 2 mg PO DAILY #90 tabs 08/04 (Motegrity) Allergies Allergy/AdvReac Type Severity Reaction Status Date / Time lisinopril Allergy Hives Verified 08/04/25 14:33 oxycodone (From Percocet) Allergy Hives Verified 08/04/25 14:33 Sulfa (Sulfonamide Allergy Hives Verified 08/04/25 14:33 Antibiotics) [facility] <Eric Cutler MD - Last Filed: 08/13/25 06:55> [facility] Disclaimer: The information contained in this section may have been updated after the patient was seen, as this information can be updated by other users. 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, 2001, status post laser surgeries Brain fog Known side effect of topiramate History of nephrolithiasis Least 3?5 kidney stones, recommend avoiding topiramate Family history of brain aneurysm Both mother and paternal grandfather, patient denies prior aneurysm screening Carpal tunnel syndrome of left wrist GERD (gastroesophageal reflux disease) Hypoglycemia Cervical cancer HISTORY OF Ovarian cancer HISTORY OF Hypertension Surgical History Status post myringotomy with tube placement of both ears History of cardiac cath H/O LEEP x3 History of x2 Family History Other Family history of diabetes mellitus type II Family history of hyperlipidemia Family history of hypertension Hx of CABG Social History Smoking Status: Former smoker smoking status stop date: Oct 2023 alcohol intake: never substance use type: denies use current occupational status: unemployed Travel in the last 8 weeks?: None household members: significant other housing: house marital status: single caffeine: Yes Have you lived/traveled outside [place] in past 30 days?: No Contact w/someone who lives/traveled outside US past 30 days?: No Exposure to someone with infectious disease in past 14 days?: No Do you have a fever (greater than 100.4 F or 38 C)?: No Have you tested positive for COVID-19?: No Exposed to someone with COVID-19 in past 14 days?: No Do you have a sore throat?: No Do you have a cough?: No Do you have any weakness?: No Do you have any diarrhea?: No Are you experiencing any unusual bleeding?: No Do you have any muscle aches/pain?: No Do you have any abdominal pain?: No Are you experiencing loss of taste or smell?: No Other Medical History Have you received the Flu Vaccine for this season: No Have you received the Pneumonia Vaccine: No <Eric Cutler MD - Last Filed: 08/13/25 06:55> ROS Obtained: Yes All systems reviewed & no additional complaints except as documented Physical Exam <Eric Cutler MD - Last Filed: 08/13/25 06:55> General General appearance: alert and in no apparent distress Head Head exam: atraumatic and normocephalic Eye Eye exam: Present normal appearance, PERRL and EOMI ENT ENT exam: Present normal oropharynx and normal external ear exam Neck Neck exam: Present normal inspection and full ROM Chest Chest inspection: Present normal inspection and symmetric chest wall rise; Absent tenderness Respiratory Respiratory exam: Present normal lung sounds bilaterally; Absent respiratory distress Cardiovascular Cardiovascular exam: Present regular rate and normal rhythm Abdominal Exam Abdominal exam: Present soft; Absent distention, tenderness or guarding Extremities Exam Extremities exam: Present normal inspection; Absent edema or joint swelling Back Exam Back exam: Present normal inspection; Absent tenderness Neurological Exam Neurological exam: Present alert, oriented X3, CN II-XII intact and reflexes normal; Absent motor sensory deficit Psychiatric Psychiatric exam: Present normal affect and normal mood Skin Skin exam: Present warm, dry and normal color Lymphatic Lymphatic Findings: no adenopathy Medical Decision Making <Eric Cutler MD - Last Filed: 08/13/25 06:55> Medical Records Medical records reviewed: Yes I reviewed the patient's medical records. Screening: Per USPSTF and CDC recommendations, given the prevalence of disease in our region, it is our hospital?s policy to screen for HIV and viral Hepatitis for all patients aged 18 and over and those with ongoing risk factors. Billy Inquiry Pt receiving controlled substance: No Billy was queried for this patient: No Vital Signs: 08/13/25 06:21 08/13/25 06:26 08/13/25 06:27 Temperature 98.6 F Temperature Source Oral Pulse Rate 85 Pulse Rate [Right] 85 Respiratory Rate 16 14 16 Blood Pressure 123/82 168/114 H Blood Pressure [Right Arm] 168/114 H Blood Pressure Mean [Right Arm] 132 02 Sat by Pulse Oximetry 96 96 Oxygen Delivery Method Room Air Room Air 08/13/25 06:27 08/13/25 06:30 08/13/25 06:31 Temperature Temperature Source Pulse Rate 75 73 Pulse Rate [Right] Respiratory Rate 15 14 Blood Pressure 132/82 118/63 Blood Pressure [Right Arm] Blood Pressure Mean [Right Arm] 02 Sat by Pulse Oximetry 98 Oxygen Delivery Method Room Air 08/13/25 07:00 08/13/25 07:13 08/13/25 07:17 Temperature Temperature Source Pulse Rate 67 Pulse Rate [Right] Respiratory Rate 21 21 12 Blood Pressure 82/57 L 78/52 L 84/54 L Blood Pressure [Right Arm] Blood Pressure Mean [Right Arm] 02 Sat by Pulse Oximetry 95 Oxygen Delivery Method Room Air Room Air Room Air 08/13/25 07:23 08/13/25 07:30 08/13/25 08:17 Temperature Temperature Source Pulse Rate 65 69 74 Pulse Rate [Right] Respiratory Rate 16 16 18 Blood Pressure 97/70 L 97/63 L 106/69 L Blood Pressure [Right Arm] Blood Pressure Mean [Right Arm] 02 Sat by Pulse Oximetry 98 96 98 Oxygen Delivery Method Room Air Room Air 08/13/25 08:30 08/13/25 09:00 08/13/25 09:30 Temperature Temperature Source Pulse Rate 78 76 75 Pulse Rate [Right] Respiratory Rate 17 17 15 Blood Pressure 92/65 L 98/77 L 111/73 Blood Pressure [Right Arm] Blood Pressure Mean [Right Arm] 02 Sat by Pulse Oximetry 96 96 99 Oxygen Delivery Method Lab Data Lab results reviewed: Yes I reviewed the patient's lab results. Lab Results 08/13/25 06:21: WBC 8.1, RBC 4.59, Hgb 13.9, Hct 40.4, MCV 88.0, MCH 30.3, MCHC 34.4, RDW 12.0, Plt Count 376, MPV 10.3, Neut % (Auto) 45.9, Lymph % (Auto) 37.9, [place] % (Auto) 14.6 H, Eos % (Auto) 0.9, Baso % (Auto) 0.5, Neut # (Auto) 3.7, Lymph # (Auto) 3.1, [place] # (Auto) 1.2 H, Eos # (Auto) 0.1, Baso # (Auto) 0.0, Sodium 134 L, Potassium 4.0, Chloride 98, Carbon Dioxide 26, Anion Gap 14.0, BUN 26 H, Creatinine 0.60, Estimated Creat Clear 156, Estimated GFR 106, Est GFR ( Amer) 128, Glucose 163 H, Calcium 9.0, Total Bilirubin 0.8, AST 24, ALT 38, Alkaline Phosphatase 94, Troponin I < 0.01, Total Protein 7.9, Albumin 4.6, Globulin 3.3 H, Albumin/Globulin Ratio 1.4, Lipase 61 08/13/25 06:35: PT 10.8, INR 0.97, D-Dimer 0.40 08/13/25 09:20: Troponin I < 0.01 08/13/25 06:21 08/13/25 06:21 Orders (Tests/Meds): ED MEDICATIONS Discontinued Medications Generic Name Dose Route Start Last Admin Trade Name Freq PRN Reason Stop Dose Admin Acetaminophen 1,000 mg 08/13/25 06:28 08/13/25 06:37 Acetaminophen 500mg Tab PO 08/13/25 06:29 1,000 mg ONCE ONE Administration Belladonna Alkaloids 60 ml 08/13/25 06:28 08/13/25 06:37 Belladonna Alkaloids 60 Ml Ml PO 08/13/25 06:29 60 ml ONCE ONE Administration Lactated Ringer's 1,000 mls @ 999 mls/hr 08/13/25 07:21 08/13/25 10:10 Lactated Ringer's 1000 Ml Bag IV 08/13/25 08:21 Infused .Q1H1M ONE Infusion Iopamidol 75 ml 08/13/25 08:11 08/13/25 08:18 Iopamidol-370 (76%);100ml Bottle IV 08/13/25 08:12 75 ml ONCE ONE Administration Ondansetron HCl 4 mg 08/13/25 06:28 08/13/25 06:36 Ondansetron 4mg/2ml Vial IV 08/13/25 06:29 4 mg ONCE ONE Administration Sodium Chloride 10 ml 08/13/25 08:11 08/13/25 08:18 Sodium Chloride 0.9% 10ml Syr (Rad Only) IV 08/13/25 08:12 10 ml ONCE ONE Administration Sodium Chloride 50 ml 08/13/25 08:11 08/13/25 08:18 0.9 % Sodium Chloride 50 Ml Vial IV 08/13/25 08:12 50 ml ONCE ONE Administration Sucralfate 1 gm 08/13/25 06:33 08/13/25 06:40 Sucralfate 1gm/10ml Susp Udc PO 08/13/25 06:34 1 gm ACHS ONE Administration ORDERS Category Date Time Status CT angio head Stat Cat Scan 08/13/25 07:[address] angio neck Stat Cat Scan 08/13/25 07:[address] head/brain wo con Stat Cat Scan 08/13/25 07:47 Completed CXR --portable [XR chest portable] Stat Exams 08/13/25 06:28 Completed CBC w/Auto Diff [Complete Blood Count Auto Diff] Stat Lab 08/13/25 06:21 Completed CMP [Comprehensive Metabolic Panel] Stat Lab 08/13/25 06:21 Completed D-Dimer Stat Lab 08/13/25 06:35 Completed INR [Prothrombin Time INR] Stat Lab 08/13/25 06:35 Completed Lipase Stat Lab 08/13/25 06:21 Completed Troponin I Q3H Lab 08/13/25 06:21 Completed Troponin I Q3H Lab 08/13/25 09:20 Completed ECG Data Tracing #1: I reviewed this ECG and interpreted as documented below: Sinus rhythm, rate of 82, minimal ST depression noted, consistent with prior EKGs. ECG initial impression date: 08/13/25 ECG initial impression time: 06:19 Medical Decision Narrative: 50-year-old female with history of anxiety, pancreatic insufficiency and chronic epigastric pain, chronic chest pain presents for burning epigastric pain, nausea and vomiting that woke her up from sleep. She also complains of ringing in her ears bilaterally and tingling in both arms and legs. History was obtained via interactive discussion with patient, chart review. On arrival, patient is [afebrile, hemodynamically stable, satting appropriately, alert, oriented x4, GCS 15], moving all extremities spontaneously. Full physical exam performed and significant for no focal neurologic deficits on exam clear lungs bilaterally Differential includes but is not limited to ACS, PE, esophageal spasm, GERD, anxiety, inner ear pathology. Patient was given Zofran, GI cocktail, sucralfate, Tylenol. Patient took aspirin prior to arrival. Workup initiated including CBC CMP troponin D-dimer chest x-ray EKG lipase. On re-evaluation, patient [remains afebrile, HD stable.] Laboratory workup independently interpreted by me and significant for no significant leukocytosis, no significant electrolyte derangement, normal renal function. Imaging independently interpreted by me and significant for clear lungs bilaterally. See radiology read for full review of final results. At this time care handed off to oncoming physician. <Blaine Jiang MD - Last Filed: 08/13/25 10:11> Vital Signs: 08/13/25 06:21 08/13/25 06:26 08/13/25 06:27 Temperature 98.6 F Temperature Source Oral Pulse Rate 85 Pulse Rate [Right] 85 Respiratory Rate 16 14 16 Blood Pressure 123/82 168/114 H Blood Pressure [Right Arm] 168/114 H Blood Pressure Mean [Right Arm] 132 02 Sat by Pulse Oximetry 96 96 Oxygen Delivery Method Room Air Room Air 08/13/25 06:27 08/13/25 06:30 08/13/25 06:31 Temperature Temperature Source Pulse Rate 75 73 Pulse Rate [Right] Respiratory Rate 15 14 Blood Pressure 132/82 118/63 Blood Pressure [Right Arm] Blood Pressure Mean [Right Arm] 02 Sat by Pulse Oximetry 98 Oxygen Delivery Method Room Air 08/13/25 07:00 08/13/25 07:13 08/13/25 07:17 Temperature Temperature Source Pulse Rate 67 Pulse Rate [Right] Respiratory Rate 21 21 12 Blood Pressure 82/57 L 78/52 L 84/54 L Blood Pressure [Right Arm] Blood Pressure Mean [Right Arm] 02 Sat by Pulse Oximetry 95 Oxygen Delivery Method Room Air Room Air Room Air 08/13/25 07:23 08/13/25 07:30 08/13/25 08:17 Temperature Temperature Source Pulse Rate 65 69 74 Pulse Rate [Right] Respiratory Rate 16 16 18 Blood Pressure 97/70 L 97/63 L 106/69 L Blood Pressure [Right Arm] Blood Pressure Mean [Right Arm] 02 Sat by Pulse Oximetry 98 96 98 Oxygen Delivery Method Room Air Room Air 08/13/25 08:30 08/13/25 09:00 08/13/25 09:30 Temperature Temperature Source Pulse Rate 78 76 75 Pulse Rate [Right] Respiratory Rate 17 17 15 Blood Pressure 92/65 L 98/77 L 111/73 Blood Pressure [Right Arm] Blood Pressure Mean [Right Arm] 02 Sat by Pulse Oximetry 96 96 99 Oxygen Delivery Method Lab Data Lab Results 08/13/25 06:21: WBC 8.1, RBC 4.59, Hgb 13.9, Hct 40.4, MCV 88.0, MCH 30.3, MCHC 34.4, RDW 12.0, Plt Count 376, MPV 10.3, Neut % (Auto) 45.9, Lymph % (Auto) 37.9, [place] % (Auto) 14.6 H, Eos % (Auto) 0.9, Baso % (Auto) 0.5, Neut # (Auto) 3.7, Lymph # (Auto) 3.1, [place] # (Auto) 1.2 H, Eos # (Auto) 0.1, Baso # (Auto) 0.0, Sodium 134 L, Potassium 4.0, Chloride 98, Carbon Dioxide 26, Anion Gap 14.0, BUN 26 H, Creatinine 0.60, Estimated Creat Clear 156, Estimated GFR 106, Est GFR ( Amer) 128, Glucose 163 H, Calcium 9.0, Total Bilirubin 0.8, AST 24, ALT 38, Alkaline Phosphatase 94, Troponin I < 0.01, Total Protein 7.9, Albumin 4.6, Globulin 3.3 H, Albumin/Globulin Ratio 1.4, Lipase 61 08/13/25 06:35: PT 10.8, INR 0.97, D-Dimer 0.40 08/13/25 09:20: Troponin I < 0.01 Orders (Tests/Meds): ED MEDICATIONS Discontinued Medications Generic Name Dose Route Start Last Admin Trade Name Freq PRN Reason Stop Dose Admin Acetaminophen 1,000 mg 08/13/25 06:28 08/13/25 06:37 Acetaminophen 500mg Tab PO 08/13/25 06:29 1,000 mg ONCE ONE Administration Belladonna Alkaloids 60 ml 08/13/25 06:28 08/13/25 06:37 Belladonna Alkaloids 60 Ml Ml PO 08/13/25 06:29 60 ml ONCE ONE Administration Lactated Ringer's 1,000 mls @ 999 mls/hr 08/13/25 07:21 08/13/25 10:10 Lactated Ringer's 1000 Ml Bag IV 08/13/25 08:21 Infused .Q1H1M ONE Infusion Iopamidol 75 ml 08/13/25 08:11 08/13/25 08:18 Iopamidol-370 (76%);100ml Bottle IV 08/13/25 08:12 75 ml ONCE ONE Administration Ondansetron HCl 4 mg 08/13/25 06:28 08/13/25 06:36 Ondansetron 4mg/2ml Vial IV 08/13/25 06:29 4 mg ONCE ONE Administration Sodium Chloride 10 ml 08/13/25 08:11 08/13/25 08:18 Sodium Chloride 0.9% 10ml Syr (Rad Only) IV 08/13/25 08:12 10 ml ONCE ONE Administration Sodium Chloride 50 ml 08/13/25 08:11 08/13/25 08:18 0.9 % Sodium Chloride 50 Ml Vial IV 08/13/25 08:12 50 ml ONCE ONE Administration Sucralfate 1 gm 08/13/25 06:33 08/13/25 06:40 Sucralfate 1gm/10ml Susp Udc PO 08/13/25 06:34 1 gm ACHS ONE Administration ORDERS Category Date Time Status CT angio head Stat Cat Scan 08/13/25 07:[address] angio neck Stat Cat Scan 08/13/25 07:[address] head/brain wo con Stat Cat Scan 08/13/25 07:47 Completed CXR --portable [XR chest portable] Stat Exams 08/13/25 06:28 Completed CBC w/Auto Diff [Complete Blood Count Auto Diff] Stat Lab 08/13/25 06:21 Completed CMP [Comprehensive Metabolic Panel] Stat Lab 08/13/25 06:21 Completed D-Dimer Stat Lab 08/13/25 06:35 Completed INR [Prothrombin Time INR] Stat Lab 08/13/25 06:35 Completed Lipase Stat Lab 08/13/25 06:21 Completed Troponin I Q3H Lab 08/13/25 06:21 Completed Troponin I Q3H Lab 08/13/25 09:20 Completed ECG Data Tracing #2: Independently interpreted by me rate is 68, rhythm is regular, axis is normal, no ST elevation in anatomical contiguous leads, QTc 452 persistent Q waves in lead III without dynamic changes compared to previous EKGs. Medical Decision Narrative: 50-year-old female with history of anxiety, pancreatic insufficiency and chronic epigastric pain, chronic chest pain presents for burning epigastric pain, nausea and vomiting that woke her up from sleep. She also complains of ringing in her ears bilaterally and tingling in both arms and legs. History was obtained via interactive discussion with patient, chart review. On arrival, patient is [afebrile, hemodynamically stable, satting appropriately, alert, oriented x4, GCS 15], moving all extremities spontaneously. Full physical exam performed and significant for no focal neurologic deficits on exam clear lungs bilaterally Differential includes but is not limited to ACS, PE, esophageal spasm, GERD, anxiety, inner ear pathology. Patient was given Zofran, GI cocktail, sucralfate, Tylenol. Patient took aspirin prior to arrival. Workup initiated including CBC CMP troponin D-dimer chest x-ray EKG lipase. On re-evaluation, patient [remains afebrile, HD stable.] Laboratory workup independently interpreted by me and significant for no significant leukocytosis, no significant electrolyte derangement, normal renal function. Imaging independently interpreted by me and significant for clear lungs bilaterally. See radiology read for full review of final results. At this time care handed off to oncoming physician. Blaine Jiang: Upon assumption of care patient is hemodynamically stable. Patient has soft blood pressures and is getting some crystalloid resuscitation. She continues to have a nonfocal neurologic status. Initial workup reviewed by me, no significant leukocytosis no LONNIE critical electrolyte abnormality D-dimer excludes low risk aortic dissection and pulmonary embolism. Initial troponin undetectably low. Patient has persistent epigastric discomfort in the setting of exocrine pancreatic insufficiency previous esophageal spasms chronic constipation. She has nonspecific blurry vision with far focus and diffuse subjective paresthesias and generalized dizziness. Vision changes and dizziness have been going on for months. Patient has a nonfocal neurologic exam but given the duration of symptoms diagnostic imaging is warranted noncontrasted CT scan of the head CTA of the head and neck will be obtained. Per review of recent GI note patient has nonerosive GERD with moderate esophageal dysmotility and severe pancreatic exocrine deficiency. It appears she is on dual antiplatelet therapy and had 1 week of tarry stools prior to her evaluation a week ago. Patient underwent colonoscopy 12/20 had diverticulosis with internal hemorrhoids without polyps. The plan at that time was to continue Creon with esomeprazole at that time with sucralfate as needed. Per review of neurology note 03-25-2024 patient has had chronic migraines and blurry vision at least since December 2023, an MRI was conducted at that time mild chronic ischemic gliotic changes and an unremarkable MR angiogram of the head. CTA and noncontrasted CT scan of the head are warranted given the interval duration of 1 year to make sure no critical stenosis has developed. I suspect given the significant chronicity of this we will not find the exact etiology today and she will require continued workup from a neurologic standpoint on an outpatient basis. Noncontrasted CT scan of the head informally visualized by me no acute large intracranial hemorrhage. Formal read shows no acute findings with low-density in the left basal ganglia stable since prior exam favor dilated perivascular space rather than infarct. CTA head and neck nonactionable. Patient is not having tarry bowel movements and upon repeat evaluation patient states her pain is resolved and she is feeling better. Serial troponin is nonactionable. I discussed case with Dr. Barajas, we do not need to proceed with emergent EGD at this time, I agree. He will have her follow-up on an expedited outpatient basis and serial troponins were flat without continuing chest pain with history of chronic chest pain at baseline I believe that patient is appropriate for outpatient management at this time. Patient will follow-up with neurology cardiology and gastroenterology on a continued basis outpatient and was given return precautions. Procedures <Eric Cutler MD - Last Filed: 08/13/25 06:55> Risk/Benefits of Procedure(s) Were Explained: Yes Critical Care <Eric Cutler MD - Last Filed: 08/13/25 06:55> Critical Care Time Critical Care Time: No
[2025-08-13] MEDS: ONDANSETRON 4MG/2ML VIAL 4 MG IV (06:36)
[2025-08-13] MEDS: BELLADONNA ALKALOIDS 60 ML ML PO (06:37)
[2025-08-13] MEDS: ACETAMINOPHEN 500MG TAB 1000 MG PO (06:37)
[2025-08-13] MEDS: SUCRALFATE 1GM/10ML SUSP UDC 1 GM PO (06:40)
[2025-08-13 06:43] LABS: Lipase 61 U/L (23-300)
[2025-08-13 06:44] LABS: Alanine Aminotransferase 38 U/L (12-78); Albumin Level 4.6 g/dl (3.5-5.0); Albumin/Globulin Ratio 1.4 (1.1-1.8); Alkaline Phosphatase 94 U/L (38-126); Anion Gap 14.0 mEq/L (5-15); Aspartate Amino Transferase 24 U/L (14-36); Bilirubin,Total 0.8 mg/dl (0.2-1.3); Blood Urea Nitrogen 26 mg/dl (7-17); Calcium 9.0 mg/dl (8.4-10.2); Carbon Dioxide 26 mmol/L (22.0-30.0); Chloride 98 mmol/L (98-107); Creatinine Clearance Estimated 156 mL/min (50-200); Creatinine,Serum 0.60 mg/dl (0.52-1.04); Estimated Glomerular Filt Rate 106 ml/min (>60); GFR (African American) 128 ML/MIN (>60); Globulin 3.3 g/dL (1.3-3.2); Glucose 163 mg/dl (74-100); Hematocrit 40.4 % (37.0-47.0); Hemoglobin 13.9 g/dL (12.2-16.2); Immature Granulocytes % 0.2 %; Mean Corpuscular HGB Conc 34.4 g/dL (31.8-35.4); Mean Corpuscular Hemoglobin 30.3 pg (27.0-31.2); Mean Corpuscular Volume 88.0 fl (81-99); Nucleated Red Blood Cells % 0 %; Platelet Count 376 K/mm3 (142-424); Potassium 4.0 mmoL/L (3.5-5.1); Red Blood Count 4.59 M/mm3 (4.20-5.40); Red Cell Distribution Width-SD 39.0 fL; Sodium 134 mmol/L (136-145); Total Protein,Serum 7.9 g/dl (6.3-8.2); White Blood Count 8.1 K/mm3 (4.8-10.8)
--- NOTE | 2025-08-13 06:44 | PC.NURSE ---
Radiology at bedside,
[2025-08-13 06:50] LABS: INR 0.97 (0.9-1.1); Prothrombin Time 10.8 seconds (10.1-12.5)
[2025-08-13 07:02] LABS: D-Dimer 0.40 ug/mL (0.0-0.5)
[2025-08-13 07:04] LABS: Troponin I < 0.01 ng/ml (0.00-0.034)
--- OUTSIDE RECORDS SUMMARY | 2025-08-13 07:08 | XMS_ITS | Encounter Summary ---
Author Organization [facility] Address [address] [place] [address] Care Team Providers Care Obstetrics/Gynecology Nurse Name Role Phone Laura Cobian Primary Care Provider + [phone] Encounter Details Date Type Department Care Team [...] 2:57 PM EDT Nury [place] RN * [place] Suicide Severity Rating Scale (Screener/Recent Self-Report) Question [...] on filedocumented in this encounter Care Teams Obstetrics/Gynecology Nurse Relationship Specialty Start Date End Date Laura Cobian [address] [place] [address] PCP - General Nurse Practitioner 11/23/23 documented as of this encounter
--- OUTSIDE RECORDS SUMMARY | 2025-08-13 07:08 | XMS_ITS | Encounter Summary ---
Author Organization [employer] ([place], [place], [place], [place]) Address [address] [place] [address] Care Team Providers Care Junior Systems Engineer Name Role Phone Unavailable Primary Care Provider Unavailabl e Encounter Details Date Type Department Care Team (Late st Contact Info) Description 05/22/2019 Transcribed Document [facility] [place] [facility] [place] [address] ProviderElena MD [address] [place] [address] Social History Tobacco Use Types Packs/Day Years [...] : 3 - Urgent Tracking Group : [facility] ED Julia Leon RN - 05/22/2019 [...] Life Cycle Status: Active Ectopic (SNOMED CT :90666333 ) Name of Problem: Ectopic ; Recorder: MONI YUNG MD-EMR; Confirmation: Confirmed ; Classification: Medical ; Code: [id number] ; Contributor System: PowerChart ; Last Updated: 10/24/2014 8:05 EST ; Life Cycle Date: 10/24/2014 ; Life Cycle Status: Active ; Responsible Provider: MONI YUNG MD-EMR; Vocabulary: SNOMED CT HTN (hypertension) (SNOMED CT :1860829561 ) Name of Problem: HTN (hypertension) ; Recorder: CARINA MELCHOR RN; Confirmation: Confirmed ; Classification: Medical ; Code: [id number] ; Contributor System: MyRefersChart ; Last Updated: 09/29/2014 14:18 EST ; Life Cycle Date: 09/29/2014 ; Life Cycle Status: Active ; Vocabulary: SNOMED CT Hypoglycemia (SNOMED CT :941959050 ) Name of Problem: Hypoglycemia ; Recorder: Ben Hernandez Rn; Confirmation: Confirmed ; Classification: Medical ; Code: [id number] ; Contributor System: PowerChart ; Last Updated: 10/15/2018 1:50 EST ; Life Cycle Date: 10/15/2018 ; Life Cycle Status: Active ; Vocabulary: SNOMED CT Migraine (SNOMED CT :07744617 ) Name of Problem: Migraine ; Recorder: NICOLE LAMA RN; Confirmation: Confirmed ; Classification: Medical ; Code: [id number] ; Contributor System: PowerChart ; Last Updated: 12/19/2015 0:55 EST ; Life Cycle Date: 12/19/2015 ; Life Cycle Status: Active ; Vocabulary: SNOMED CT Diagnoses(Active) Flank pain Date: 05/22/2019 ; Diagnosis Type: Reason For Visit ; Confirmation: Complaint of ; Clinical Dx: Flank pain ; Classification: Medical ; Clinical Service: Emergency medicine ; Code: PNED ; Probability: 0 ; Diagnosis Code: [id number] ED Height and Weight Height Source : Stated Height Entry Format : [place] Height, Feet : 4 ft(Converted to: 122 cm, 48 Inch) Height, Inches : 11 Inch(Converted to: 0 ft 11 Inch, 27.94 cm) Clinical Height : 149.86 cm Weight Source, ED : Critical estimated dosing weight Weight Entry Format : [place] Weight, Pounds : 150 lb Clinical Dosing Weight : 68.18 kg Body Surface Area (BSA) : 1.63 m2 Body Mass Index : 30.4 kg/m2 (HI) [place] Body Weight (IBW) : 42.87 kg Julia Randolph RN - 05/22/2019 13:13 EDT documented in this encounter Plan of Treatment Not on file documented as of this encounter Visit Diagnoses Not on filedocumented in this encounter
--- OUTSIDE RECORDS SUMMARY | 2025-08-13 07:08 | XMS_ITS | Encounter Summary ---
Author Organization [employer] ([place], [place], [place], [place]) Address [address] [place] [address] Care Team Providers Care Adventure Education Teacher Name Role Phone Unavailable Primary Care Provider Unavailabl e Encounter Details Date Type Department Care Team (Late st Contact Info) Description 05/22/2019 Transcribed Document [facility] [place] [facility] [address] ProviderElena MD [address] [place] [address] Social History Tobacco Use Types Packs/Day Years [...] - 05/22/2019 15:37 EDT Electronically signed by [facility] Conversion Plate Corrector Cerner at 03/12/2023 4:22 PM CDT documented in this encounter Plan of Treatment Not on file documented as of this encounter Visit Diagnoses Not on filedocumented in this encounter
--- OUTSIDE RECORDS SUMMARY | 2025-08-13 07:08 | XMS_ITS | Encounter Summary ---
Author Organization [employer] ([place], [place], [place], [place]) Address [address] [place] [address] Care Team Providers Care Horticultural Therapist Name Role Phone Unavailable Primary Care Provider Unavailabl e Encounter Details Date Type Department Care Team (Late st Contact Info) Description 05/22/2019 Transcribed Document [facility] [place] Medicine Replaced by [facility] [place] [address] ProviderElena MD [address] [place] [address] Social History Tobacco Use Types Packs/Day [...] Brock MD - 05/22/2019 3:21 PM CDT [facility] [address] [place] [address] DONYA MALDONADO :1975 Visit Time:05/22/2019 [...] is currently established with Nia Aguilera at [facility] in [place]. Feel free to contact our Patient Resource Center at [phone] for any future Physician scheduling needs. Follow Up with KEVEN SELLERS When Within 2 to 3 days Where: [address] [facility] [address] [place] [address]- Business (1) Allergies Percocet 5/325 lisinopril sulfADIAZINE (C/O: a swelling~Redness, C/O: a swelling, Redness) Immunizations This Visit No Immunizations Found Medications What How Much When Instructions Next Dose New acetaminophen-hydrocodone ([place] 5 mg-325 mg oral tablet) 1 Tablet(s) [...] ) Urine Bilirubin Dipstick: Negative Urine Specific [place]: 1.015 -- Normal range between ( 1.005 [...] by your health care provider. ??? Take ppyg-obt-sanlgsa and prescription medicines only as told by [...] 01/03/2007 Document Revised: 01/25/2018 Document Reviewed: 01/25/2018 [employer] Interactive Patient Education ?? 2019 [employer] Emergency Awareness and Preventative Care STROKE [...] Assistance with quitting is available by contacting 3-368-OLKVNOW. This is a free resource providing counseling, support, and referral. Or you may contact your personal physician. [place] Suicide Prevention Lifeline: The National Suicide Prevention [...] was given the opportunity to ask questions. Patient/Powerhouse Mechanic Supervisor Name: Patient/Powerhouse Mechanic Supervisor Signature: Relationship to Patient: Clinician/Hospital Powerhouse Mechanic Supervisor Signature: Please Provide a Telephone Number Where You Can Be Reached: Is it Permissible To Leave a Message? Date: Electronically signed by Interface, [facility] Conversion Branding Machine Tender Cerner at 03/12/2023 4:26 PM CDT documented in this encounter Plan of Treatment Not on file documented as of this encounter Visit Diagnoses Not on filedocumented in this encounter
--- OUTSIDE RECORDS SUMMARY | 2025-08-13 07:08 | XMS_ITS | Encounter Summary ---
Author Organization [employer] ([place], [place], [place], [place]) Address [address] [place] [address] Care Team Providers Care Cyber Special Agent Name Role Phone Unavailable Primary Care Provider Unavailabl e Encounter Details Date Type Department Care Team (Late st Contact Info) Description 01/01/2019 Transcribed Document [facility] [place] [facility] [place] [address] ProviderElena MD [address] [place] [address] Social History Tobacco Use Types Packs/Day Years Used Date Smoking Tobacco: Never Assessed Comments Unknown Sex and Gender Information Value Date Recorded Sex Assigned at Not on file Legal Sex Female 5:06 PM CDT Gender Identity Not on file Sexual Orientation Not on file documented as of this encounter Miscellaneous Notes * Cerner Conversion Note - Historical ProviderMD - 01/01/2019 2:13 PM PATIENT RELATIONS REPRESENTATIVE [facility] [address] [place] [address] PERSON INFORMATION Name DONYA MALDONADO Age 43 Years 1975 Sex Female Language Kinyarwanda PCP KEVEN SELLERS NP-INT Marital Status Single Med Service Emergency Medicine Acct# Arrival 01/01/2019 11:20:00 Visit Reason Headache; Chest pain; CP,SOA Acuity 2 - Emergent LOS 000 02:53 Depart Date: 01/01/19 01:42 PM Address: [address] [place] [id number] Comment: PROVIDER INFORMATION Provider Role Assigned Unassigned ROBERT GREEN MD ED Physician 01/01/2019 11:23:46 JANI CATALAN, ANIMAL SHELTER WORKER Nurse 01/01/2019 11:56:40 DIAGNOSIS Chest pain PHYS [...] 5/325; sulfADIAZINE; lisinopril Medications: Prescription Display acetaminophen-hydrocodone ([place] 7.5 mg-325 mg oral tablet) 1 Tab, Oral, Tab, Q4H, PRN as needed for pain, X 2 Day(s), # 12 Tab, 0 Refill(s) Comment: DISCHARGE INFORMATION Discharge Disposition: Home Discharge Location: PATIENT EDUCATION INFORMATION Instructions: Nonspecific Chest Pain Follow up: With: Address: When: KEVEN SELLERS [address] [place], [place] [id number] [facility] ([employer] Within 2 to 3 days Comment: documented in this encounter Plan of Treatment Not on file documented as of this encounter Visit Diagnoses Not on filedocumented in this encounter
--- OUTSIDE RECORDS SUMMARY | 2025-08-13 07:08 | XMS_ITS | Encounter Summary ---
Author Organization [employer] ([place], [place], [place], [place]) Address [address] [place] [address] Care Team Providers Care File System Installer Name Role Phone Unavailable Primary Care Provider Unavailabl e Encounter Details Date Type Department Care Team (Late st Contact Info) Description 01/01/2019 Transcribed Document [facility] [place] [facility] [place] [address] ProviderElena MD [address] [place] [address] Social History Tobacco Use Types Packs/Day Years Used Date Smoking Tobacco: Never Assessed Comments Unknown Sex and Gender Information Value Date Recorded Sex Assigned at Not on file Legal Sex Female 5:06 PM CDT Gender Identity Not on file Sexual Orientation Not on file documented as of this encounter Miscellaneous Notes * Cerner Conversion Note - Historical ProviderMD - 01/01/2019 11:38 AM BASE FILLER OPERATOR Vital Signs ED Entered On: 01/01/2019 12:32 [...] 01/01/2019 12:31 EST Electronically signed by Ivana [facility] Conversion Teacher Aide Clerical Cerner at 03/12/2023 4:18 PM CDT documented in this encounter Plan of Treatment Not on file documented as of this encounter Visit Diagnoses Not on filedocumented in this encounter
--- OUTSIDE RECORDS SUMMARY | 2025-08-13 07:08 | XMS_ITS | Patient Health Record ---
Author Organization [facility] Address [address] [facility] [address] [place] [address] Care Team Providers Care Surgical Assistant Name Role Phone Shana Min [phone] Allergies Allergen (clinical drug ingredient) Drug/Non Drug [...] Coverage Start Date Coverage End Date [employer] [facility] [address] [place] [phone] [id number] PhaniDonya Self - patient is the insured 2 Medical (General) History Medical History History ICD Code Recurrent miscarriages PID Abnormal paps Breast pain Yeast infections High blood pressure Acid reflux UTIs Anxiety Depression Moderate dysplasia Surgical History Surgery Date(Month/Year) C/S x 1, left hand sx, D&C x 4 for MAB, LEEP Hospitalization History Reason Date(Month/Year)
--- OUTSIDE RECORDS SUMMARY | 2025-08-13 07:08 | XMS_ITS | Encounter Summary ---
Author Organization [employer] ([place], [place], [place], [place]) Address [address] [place] [address] Care Team Providers Care Back Pad Inspector Name Role Phone Unavailable Primary Care Provider Unavailabl e Encounter Details Date Type Department Care Team (Late st Contact Info) Description 05/22/2019 Transcribed Document [place] Family Medicine [facility] [place] [address] ProviderElena MD [address] [place] [address] Social History Tobacco Use Types Packs/Day [...] Medical/ Family/ Social History Surgical history: section ([id number]). LEEP ([id number]).. Family history: No family history items have been selected or recorded.. Social history: Social & Psychosocial Habits Alcohol 08/18/2014 Alcohol Use in Last Twelve Months No Employment/School 10/15/2018 Status: Employed Description: [employer] Home/Environment 10/15/2018 Lives with: Children Nutrition/Health 01/01/2019 [...] Source Stated Height Entry Format [place] Height/Length, M[place] (ft) 4 ft Height/Length MONT[place]IN 11 Inch CLINICALHEIGHT 149.86 cm [place] Body Weight 42.87 kg Weight Source, ED Critical estimated dosing weight Weight Entry Format [place] Weight [place] lb 150 lb CLINICALWEIGHT 68.18 kg Body [...] Temperature Warm Communication Barrier None Primary Language Tajik Information Obtained From Patient Smoking Status 5-9 [...] Fall Scale Risk Level 0-24 Low Risk [place] Fall Interventions Adequate lighting, Bed in low position, Call device within reach, Personal items within reach 05/22/2019 13:22 EDT Nurse Collect Order Detail 3.00 05/22/2019 13:22 EDT Nurse Collect Order Detail 3.00 05/22/2019 13:19 EDT Urine Type. U CleanCatch Urine Color Light Yellow Urine Appearance Clear Urine Specific [place] 1.015 Urine pH Dipstick 8.5 HI Urine [...] Source Stated Height Entry Format [place] Height/Length, [place] (ft) 4 ft Height/Length [place] 11 Inch CLINICALHEIGHT 149.86 cm [place] Body Weight 42.87 kg Weight Source, ED Critical estimated dosing weight Weight Entry Format [place] Weight [place] lb 150 lb CLINICALWEIGHT 68.18 kg Body [...] 15:19 EDT, Discharge to: Home. Prescriptions: Prescription Physical Director Pharmacy: [facility] 5 mg-325 mg oral tablet (Prescribe): 1 Tab, Oral, Q4H, for 2 Day(s), PRN: for pain, 12 Tab, 0 Refill(s). Patient was given the following educational materials: Flank Pain, Adult. Limitations: Limited activity. Follow up with: [facility] Within As needed Patient stated she is currently established with Nia Aguilera at [facility] in [place]. Feel free to contact our Patient Resource Center at [phone] for any future Physician scheduling needs. ; KEVEN SELLERS Within 2 to 3 days. Counseled: Patient, Regarding diagnosis, Regarding diagnostic results, Regarding treatment plan, Regarding prescription, Patient indicated understanding of instructions. documented in this encounter Plan of Treatment Not on file documented as of this encounter Visit Diagnoses Not on filedocumented in this encounter
--- OUTSIDE RECORDS SUMMARY | 2025-08-13 07:08 | XMS_ITS | Encounter Summary ---
Author Organization [employer] ([place], [place], [place], [place]) Address [address] [place] [address] Care Team Providers Care Hull Molder Name Role Phone Unavailable Primary Care Provider Unavailabl e Encounter Details Date Type Department Care Team (Late st Contact Info) Description 05/22/2019 Transcribed Document [facility] [place] [facility] [place] [address] ProviderElena MD [address] [place] [address] [phone] Social History Tobacco Use Types Packs/Day Years [...] 3:20 PM CDT Electronically signed by Ivana [facility] Conversion Safety Representative Cerner at 03/12/2023 4:21 PM CDT documented in this encounter Plan of Treatment Not on file documented as of this encounter Visit Diagnoses Not on filedocumented in this encounter
--- OUTSIDE RECORDS SUMMARY | 2025-08-13 07:08 | XMS_ITS | Encounter Summary ---
Author Organization [employer] ([place], [place], [place], [place]) Address [address] [place] [address] Care Team Providers Care Cable Tender Name Role Phone Unavailable Primary Care Provider Unavailabl e Encounter Details Date Type Department Care Team (Late st Contact Info) Description 01/01/2019 Transcribed Document [facility] [place] [facility] [place] [address] ProviderElena MD [address] [place] [address] [phone] Social History Tobacco Use Types Packs/Day Years Used Date Smoking Tobacco: Never Assessed Comments Unknown Sex and Gender Information Value Date Recorded Sex Assigned at Not on file Legal Sex Female 5:06 PM CDT Gender Identity Not on file Sexual Orientation Not on file documented as of this encounter Miscellaneous Notes * Cerner Conversion Note - Historical ProviderMD - 01/01/2019 2:13 PM HUMAN RESOURCES EXECUTIVE ASSISTANT [facility] [address] [place] [address] Patient Information Name: DONYA MALDONADO Age: 43 Years Date of : 1975 Arrival Time: 01/01/2019 11:20:00 Diagnosis Chest pain Primary Care Physician: KEVEN SELLERS, DIRECTOR OF COMMUNITY SERVICES-INT Provider Information Primary Provider: NAE GREEN MD Secondary Provider: DONYA MALDONADO has been given the following list of patient education materials, prescriptions and follow-up instructions: Follow-up Instructions: With: Address: When: [facility] [address] [facility] [address] [place] [phone] Business (1) Within 2 to 3 days [...] you start to feel better. ??? Take gypv-mnn-lyyexuf and prescription medicines only as told by [...] 08/22/2006 Document Revised: 08/06/2017 Document Reviewed: 08/06/2017 [employer] Interactive Patient Education ? 2017 [employer] Allergies: Percocet 5/325; sulfADIAZINE; lisinopril Medication Information: Prescription Display acetaminophen-hydrocodone ([place] 7.5 mg-325 mg oral tablet) 1 Tab, [...] verify that DONYA MALDONADO was seen at [facility] Emergency Department on ,01/01/2019 14:13:41. This is [...] along the way. As a healthcare provider, [facility] recommends that you stop smoking. Assistance with quitting is available by contacting 9-572-RNXK-NOW. This is a free resource providing counseling, [...] Electronic Communications Privacy Act 18 U.S.C. ???Sections 4676-7179,?? and contain information intended for the specified [...] Be sure to sign up for the [employer] patient portal, which gives you 18/06 access to your medical information ??? including these discharge instructions ??? using your computer, smartphone, or tablet. Just go to [employer] to get started. Questions? Call . Acknowledgment [...] Yes____ No____ Nurse Providing Instructions: Emergency Physician: Electronically signed by Johnathan Heath Conversion Senior Dynamics Crm Developer Cherryner at 03/12/2023 4:18 PM CDT documented in this encounter Plan of Treatment Not on file documented as of this encounter Visit Diagnoses Not on filedocumented in this encounter
--- OUTSIDE RECORDS SUMMARY | 2025-08-13 07:08 | XMS_ITS | Encounter Summary ---
Author Organization [facility] ([place], [place], [place], [place]) Address [address] [place] [address] Care Team Providers Care Outpatient Interviewing Clerk Name Role Phone Unavailable Primary Care Provider Unavailabl e Encounter Details Date Type Department Care Team (Late st Contact Info) Description 08/30/2021 Transcribed Document [facility] [place] [facility] [place] [address] ProviderElena MD [address] [place] [address] [phone] Social History Tobacco Use Types Packs/Day Years [...] Source : Measured Height Entry Format : [place] Height, Feet : 4 ft(Converted to: 122 cm, 48 Inch) Height, Inches : 11 Inch(Converted to: 0 ft 11 Inch, 27.94 cm) Clinical Height : 149.86 cm Weight Source : Standing scale Weight Entry Format : [place] Clinical Dosing Weight : 70.45 kg Weight, Pounds : 155 lb Body Surface Area (BSA) : 1.66 m2 Body Mass Index : 31.4 kg/m2 (HI) [place] Body Weight : 43 kg ISIS RYDER [...] ISIS RYDER RN - 08/30/2021 13:13 EDT [place] Suicide Severity Rating Scale (C-SSRS) CSSRS Past [...] Seth Support Person/Pt Rep Contact Information : [phone] Want Family/Rep/Phys Notified of Admit : No Emergency Contact #1 : Seth Emergency Contact #1 Emergency Contact #1 Relationship : so Emergency Contact #2 : na Emergency Contact #2 Phone Number : na Emergency Contact #2 Relationship : na Chief Complaint : xiomy Information Obtained From : Patient Primary Language : Bur[place]ian Preferred Communication Mode : Verbal Communication Barrier : None Rotary Soil Stabilizer Operator Needed : No ISIS RYDER RN - [...] Sleep Apnea Risk Level Score : 1 ISIS RYDER RN - 08/30/2021 13:13 EDT [place] [...] Scale Risk Level : 25-45 Medium Risk [place] Fall Interventions : Adequate lighting, Call device [...]
--- OUTSIDE RECORDS SUMMARY | 2025-08-13 07:08 | XMS_ITS | Encounter Summary ---
Author Organization [employer] ([place], [place], [place], [place]) Address [address] [place] [address] Care Team Providers Care Computer Systems Hardware Analyst Name Role Phone Unavailable Primary Care Provider Unavailabl e Encounter Details Date Type Department Care Team (Late st Contact Info) Description 05/22/2019 Transcribed Document [facility] [place] [facility] [place] [address] ProviderElena MD [address] [place] [address] Social History Tobacco Use Types Packs/Day Years [...] Communication Barrier : None Primary Language : Greek Any Spiritual/Cultural Needs or Requests : No [...]
--- OUTSIDE RECORDS SUMMARY | 2025-08-13 07:08 | XMS_ITS | Encounter Summary ---
Author Organization [employer] ([place], [place], [place], [place]) Address [address] [place] [address] Care Team Providers Care Sustainable Agriculture Specialist Name Role Phone Unavailable Primary Care Provider Unavailabl e Encounter Details Date Type Department Care Team (Late st Contact Info) Description 01/01/2019 Transcribed Document [facility] [place] [facility] [place] [address] ProviderElena MD [address] [place] [address] [phone] Social History Tobacco Use Types Packs/Day Years Used Date Smoking Tobacco: Never Assessed Comments Unknown Sex and Gender Information Value Date Recorded Sex Assigned at Not on file Legal Sex Female 5:06 PM CDT Gender Identity Not on file Sexual Orientation Not on file documented as of this encounter Miscellaneous Notes * Cerner Conversion Note - Historical ProviderMD - 01/01/2019 1:05 PM PLANT TECHNICIAN Electronically signed by Ivana [facility] Conversion Ampoule Examiner Cerner at 03/12/2023 4:29 PM CDT documented in this encounter Plan of Treatment Not on file documented as of this encounter Visit Diagnoses Not on filedocumented in this encounter
--- OUTSIDE RECORDS SUMMARY | 2025-08-13 07:08 | XMS_ITS | Encounter Summary ---
Author Organization [id number] ([place], [place], [place], [place]) Address [address] [place] [address] Care Team Providers Care Restaurant Lead Name Role Phone Unavailable Primary Care Provider Unavailabl e Encounter Details Date Type Department Care Team (Late st Contact Info) Description 01/01/2019 Transcribed Document [facility] [place] Family [place] [address] ProviderElena MD [address] [place] [address] Social History Tobacco Use Types Packs/Day Years Used Date Smoking Tobacco: Never Assessed Comments Unknown Sex and Gender Information Value Date Recorded Sex Assigned at Not on file Legal Sex Female 5:06 PM CDT Gender Identity Not on file Sexual Orientation Not on file documented as of this encounter Miscellaneous Notes * Cerner Conversion Note - Historical ProviderMD - 01/01/2019 11:20 AM BOOK SOLICITOR ED Triage Entered On: 01/01/2019 11:29 EST Performed On: 01/01/2019 11:24 EST by MARILYN GARCIA, TICK ERADICATOR Triage Across the Room Triage Date/Time : 01/01/2019 11:24 EST Chief Complaint : here with c/o chest pain starting just prior to arrival. c/o nausea. no vomiting. also c/o shortness of air. c/ tightness in chest. also c/o headache since this morning. MARILYN GARCIA, RN - 01/01/2019 11:24 EST DCP GENERIC CODE Tracking Acuity : 2 - Emergent Tracking Group : [facility] ED MARILYN Maurice RN - 01/01/2019 11:24 [...] Disease History : Chicken pox/Shingles, Mumps, Other: brednen mountain spotted fever Fever/Chills Last 48 Hours [...] Updated By: CARINA MELCHOR RN; Reviewed Date: 01/01/2019 11:26 EST [...] Life Cycle Status: Active Ectopic (SNOMED CT :12575681 ) Name of Problem: Ectopic ; Recorder: MONI YUNG MD-EMR; Confirmation: Confirmed ; Classification: Medical ; Code: [id number] ; Contributor System: PowerChart ; Last Updated: 10/24/2014 8:05 EST ; Life Cycle Date: 10/24/2014 ; Life Cycle Status: Active ; Responsible Provider: MONI YUNG MD-EMR; Vocabulary: SNOMED CT HTN (hypertension) (SNOMED CT :7713766157 ) Name of Problem: HTN (hypertension) ; Recorder: CARINA MELCHOR RN; Confirmation: Confirmed ; Classification: Medical ; Code: [id number] ; Contributor System: PowerChart ; Last Updated: 09/29/2014 14:18 EST ; Life Cycle Date: 09/29/2014 ; Life Cycle Status: Active ; Vocabulary: SNOMED CT Hypoglycemia (SNOMED CT :539345329 ) Name of Problem: Hypoglycemia ; Recorder: Ben Hernandez Rn; Confirmation: Confirmed ; Classification: Medical ; Code: [id number] ; Contributor System: PowerChart ; Last Updated: 10/15/2018 1:50 EST ; Life Cycle Date: 10/15/2018 ; Life Cycle Status: Active ; Vocabulary: SNOMED CT Migraine (SNOMED CT :74788487 ) Name of Problem: Migraine ; Recorder: NICOLE LAMA RN; Confirmation: Confirmed ; Classification: Medical ; Code: [id number] ; Contributor System: PowerChart ; Last Updated: 12/19/2015 0:55 EST ; Life Cycle Date: 12/19/2015 ; Life Cycle Status: Active ; Vocabulary: SNOMED CT Diagnoses(Active) Chest pain Date: 01/01/2019 ; Diagnosis Type: Reason For Visit ; Confirmation: Complaint of ; Clinical Dx: Chest pain ; Classification: Medical ; Clinical Service: Emergency medicine ; Code: PNED ; Probability: 0 ; Diagnosis Code: [id number] Headache Date: 01/01/2019 ; Diagnosis Type: Reason For Visit ; Confirmation: Complaint of ; Clinical Dx: Headache ; Classification: Medical ; Clinical Service: Emergency medicine ; Code: PNED ; Probability: 0 ; Diagnosis Code: [id number] ED Height and Weight Height Source : Stated Height Entry Format : [place] Height, Feet : 4 ft(Converted to: 122 cm, 48 Inch) Height, Inches : 11 Inch(Converted to: 0 ft 11 Inch, 27.94 cm) Clinical Height : 149.86 cm Weight Source, ED : Critical estimated dosing weight Weight Entry Format : [place] Weight, Pounds : 145 lb Clinical Dosing Weight : 65.91 kg Body Surface Area (BSA) : 1.61 m2 Body Mass Index : 29.3 kg/m2 (HI) [place] Body Weight (IBW) : 42.87 kg MARILYN [...]
--- OUTSIDE RECORDS SUMMARY | 2025-08-13 07:08 | XMS_ITS | Encounter Summary ---
Author Organization [employer] ([place], [place], [place], [place]) Address [address] [place] [address] Care Team Providers Care Kinesiology Professor Name Role Phone Unavailable Primary Care Provider Unavailabl e Encounter Details Date Type Department Care Team (Late st Contact Info) Description 01/01/2019 Transcribed Document [facility] [place] Family Medicine [facility] [place] [address] ProviderElena MD [address] [place] [address] Social History Tobacco Use Types Packs/Day Years Used Date Smoking Tobacco: Never Assessed Comments Unknown Sex and Gender Information Value Date Recorded Sex Assigned at Not on file Legal Sex Female 5:06 PM CDT Gender Identity Not on file Sexual Orientation Not on file documented as of this encounter Miscellaneous Notes * Cerner Conversion Note - Historical ProviderMD - 01/01/2019 1:42 PM MAKER UP FOLDING ED Discharge Entered On: 01/01/2019 14:13 EST [...] 01/01/2019 14:12 EST Electronically signed by Ivana [facility] Conversion Senior Staff Accountant Cerner at 03/12/2023 4:13 PM CDT documented in this encounter Plan of Treatment Not on file documented as of this encounter Visit Diagnoses Not on filedocumented in this encounter
--- OUTSIDE RECORDS SUMMARY | 2025-08-13 07:08 | XMS_ITS | Encounter Summary ---
Author Organization [employer] [facility] ([place], [place], [place], [place]) Address [address] [place] [address] Care Team Providers Care Java Mobile Developer Name Role Phone Unavailable Primary Care Provider Unavailabl e Encounter Details Date Type Department Care Team (Late st Contact Info) Description 01/01/2019 Transcribed Document [facility] [place] [address] ProviderElena MD [address] [place] [address] Social History Tobacco Use Types Packs/Day Years Used Date Smoking Tobacco: Never Assessed Comments Unknown Sex and Gender Information Value Date Recorded Sex Assigned at Not on file Legal Sex Female 5:06 PM CDT Gender Identity Not on file Sexual Orientation Not on file documented as of this encounter Miscellaneous Notes * Cerner Conversion Note - Historical ProviderMD - 01/01/2019 11:20 AM HAND CUTTER ED Assessment Entered On: 01/01/2019 12:21 EST Performed On: 01/01/2019 12:17 EST by JANI ACTALAN RN ED Quick Look Assessment Level of Consciousness : Alert, Awake Affect/Behavior : Cooperative Orientation : Oriented x 4 Skin Color : Pallor Skin Temperature : Warm Skin Description : Dry JANI CATALAN RN - 01/01/2019 12:17 EST ED General-Functional Assess Information Obtained From : Patient Preferred Communication Mode : Verbal Communication Barrier : None Primary Language : Georgian Any Spiritual/Cultural Needs or Requests : No [...] 01/01/2019 12:17 EST Electronically signed by Ivana [facility] Conversion Strike Plate Attacher Cerner at 03/12/2023 4:22 PM CDT documented in this encounter Plan of Treatment Not on file documented as of this encounter Visit Diagnoses Not on filedocumented in this encounter
--- OUTSIDE RECORDS SUMMARY | 2025-08-13 07:08 | XMS_ITS | Encounter Summary ---
Author Organization [employer] ([place], [place], [place], [place]) Address [address] [place] [address] Care Team Providers Care Director Of Publications Name Role Phone Unavailable Primary Care Provider Unavailabl e Encounter Details Date Type Department Care Team (Late st Contact Info) Description 01/01/2019 Transcribed Document [facility] [place] Family Medicine [facility] [place] [address] ProviderElena MD [address] [place] [address] Social History Tobacco Use Types Packs/Day Years Used Date Smoking Tobacco: Never Assessed Comments Unknown Sex and Gender Information Value Date Recorded Sex Assigned at Not on file Legal Sex Female 5:06 PM CDT Gender Identity Not on file Sexual Orientation Not on file documented as of this encounter Miscellaneous Notes * Cerner Conversion Note - Historical ProviderMD - 01/01/2019 6:25 PM CORE LAYING MACHINE OPERATOR CR Chest 1 Vw Portable Ordered: 01/01/2019 Modified Reason for Exam: pain 01/01/2019 13:12 01/01/2019 18:25 (HILARY ROBERTO PA-C) Reviewed by Provider, No further action required x1 Electronically signed by Ivana [facility] Conversion Sheep Rancher Cerner at 03/12/2023 4:09 PM CDT documented in this encounter Plan of Treatment Not on file documented as of this encounter Visit Diagnoses Not on filedocumented in this encounter
--- OUTSIDE RECORDS SUMMARY | 2025-08-13 07:08 | XMS_ITS | Encounter Summary ---
Author Organization [employer] ([place], [place], [place], [place]) Address [address] [place] [address] Care Team Providers Care Hotel Clerk Name Role Phone Unavailable Primary Care Provider Unavailabl e Encounter Details Date Type Department Care Team (Late st Contact Info) Description 01/01/2019 Transcribed Document [facility] [place] [facility] [place] [address] ProviderElena MD [address] [place] [address] Social History Tobacco Use Types Packs/Day Years Used Date Smoking Tobacco: Never Assessed Comments Unknown Sex and Gender Information Value Date Recorded Sex Assigned at Not on file Legal Sex Female 5:06 PM CDT Gender Identity Not on file Sexual Orientation Not on file documented as of this encounter Miscellaneous Notes * Cerner Conversion Note - Historical ProviderMD - 01/01/2019 11:40 AM RETAIL FIELD SUPERVISOR Patient: DONYA MALDONADO Age: 43 years Sex: [...] Medical/ Family/ Social History Surgical history: section ([id number]). LEEP ([id number]).. Family history: No family history items have been selected or recorded.. Social history: Social & Psychosocial Habits Alcohol 08/18/2014 Alcohol Use in Last Twelve Months No Employment/School 10/15/2018 Status: Employed Description: [employer] Home/Environment 10/15/2018 Lives with: Children Substance Abuse [...] EST Height Source Stated Height Entry Format [place] Height/Length, STATELESS (ft) 4 ft Height/Length STATELESS 11 Inch CLINICALHEIGHT 149.86 cm [place] Body Weight 42.87 kg Weight Source, ED Critical estimated dosing weight Weight Entry Format [place] Weight Kyrgyz lb 145 lb CLINICALWEIGHT 65.91 kg Body [...] rhythm, No ST changes, no ectopy, normal [place] & QRS intervals, EP Interp. teletypesetter monitor: Rate 70, normal sinus rhythm. Results review: [...] Temperature Warm Communication Barrier None Primary Language Kyrgyz Information Obtained From Patient Smoking Status 5-9 [...] air Height Source Stated Height Entry Format [place] Height/Length, STATELESS (ft) 4 ft Height/Length STATELESS 11 Inch CLINICALHEIGHT 149.86 cm [place] Body Weight 42.87 kg Weight Source, ED Critical estimated dosing weight Weight Entry Format [place] Weight [place] lb 145 lb CLINICALWEIGHT 65.91 kg Body [...] Fall Scale Risk Level 0-24 Low Risk [place] Fall Interventions Adequate lighting, Bed in low [...] 13:03 EST, Discharge to: Home. Prescriptions: Prescription Cardroom Supervisor Pharmacy: [place] 7.5 mg-325 mg oral tablet (Prescribe): 1 [...]
--- OUTSIDE RECORDS SUMMARY | 2025-08-13 07:09 | XMS_ITS | Encounter Summary ---
Author Organization [facility] Address [address] [place] [address] Care Team Providers Care Branch Chief Name Role Phone Karime Pinto APRN, DNP Primary Care Provider + Reason for Visit * Reason Comments Med Refill Encounter Details Date Type Department Care Team (Late st Contact Info) Description 07/05/2021 Refill Lorna Bee [address] [address] Karime Pinto APRN, DNP [address] [place] [phone] Social History Tobacco Use Types Packs/Day [...] documented as of this encounter Care Teams Branch Chief Relationship Specialty Start Date End Date Karime Pinto APRN, [place] [address] [place] [phone] PCP - General 04/08/21 08/23/21 documented as of this encounter
--- OUTSIDE RECORDS SUMMARY | 2025-08-13 07:09 | XMS_ITS | Encounter Summary ---
Author Organization [employer] ([place], [place], [place], [place]) Address [address] [place] [address] Care Team Providers Care Relief Docking Master Name Role Phone Unavailable Primary Care Provider Unavailabl e Reason for Visit * Reason Comments Medication Refill Encounter Details Date Type Department Care Team (Late st Contact Info) Description 10/14/2024 Refill [facility] [address] [place] [address] Marycruz Trevizo, CAPACITOR PACK PRESS OPERATOR [address] [place] [address] Social History Tobacco Use Types Packs/Day Years [...] Date Carl rded Speak language other than Danish at home Not on file 12/08/2023 Want [...]
--- OUTSIDE RECORDS SUMMARY | 2025-08-13 07:09 | XMS_ITS | Clinical Summary ---
Author Organization [employer] ([place], [place], [place], [place]) Address [address] [place] [address] Care Team Providers Care Avionics Manager Name Role Phone Unavailable Primary Care [...] Date Carl rded Speak language other than Montserratian at home Not on file 12/08/2023 Want [...] Screening 1990 Hepatitis C Screening 1993 Pneumococcal 50+ years (1 of 2 - PCV) 1994 Pap Smear 1996 Breast Cancer Screening 2015 DTAP/TDAP/TD VACCINES (2 - Td or Tdap) 04/30/2020 Lipid Panel 07/14/2024 07/14/2021 Tobacco Cessation Counseling and Screening (12+) 10/17/2024 10/17/2023 Shingles Vaccine (Zoster) (1 of 2) 2025 COVID-19 VACCINE (2023- season) 2025 Influenza Vaccine (#1) 2025 08/28/2019, 2014 Insurance [employer] [facility] Advance Directives For more information, please contact: [phone] * Full Code (Latest Code Status on File) Date Activated Date Inactivated Comments 12/07/2022 3:45 PM 12/08/2022 7:01 PM
--- OUTSIDE RECORDS SUMMARY | 2025-08-13 07:09 | XMS_ITS | Clinical Summary ---
Author Organization [facility] Address [address] [place] [address] Care Team Providers Care Bilingual Student Tutor Name Role Phone Unavailable Primary Care Provider [...] TIMES DAILY TESTING 11/02/2020 Active Glucose Blood (Shelby.tvUCH ULTRA BLUE ) TEST 3 TIMES DAILY. [...] 2020 Sigmoidoscopy 2020 [facility]-Colorectal Cancer Screening 2020 [facility]-Pneumococcal Vaccine: 50+ Years (1 of 1 - PCV) 2025 [facility]-Zoster Vaccines (1 of 2) 2025 [id number] Vaccine (1 - season) 2025 [facility]-Influenza Vaccine (#1) 07/27/202508/28, 12/26/2017, 10/26/2016, [...]
--- OUTSIDE RECORDS SUMMARY | 2025-08-13 07:09 | XMS_ITS | Encounter Summary ---
Author Organization [facility] Address [address] [place] [address] Care Team Providers Care Automotive Parts Counter Person Name Role Phone Michael Sinclair NP Primary Care Provider [phone] Encounter Details Date Type Department Care Team ([facility] st Contact Info) Description 01/24/2023 Telephone [facility] [address] [place] [address] Maren Napier MD [address], [address] [place], [place] [id number] Social History Tobacco Use Types Packs/Day Years [...] 01/24/2023 2:51 PM EST Call back number: [phone] Person Calling (patient/caregiver/facility etc): Patient Patient's provider: [...] on filedocumented in this encounter Care Teams Automotive Parts Counter Person Relationship Specialty Start Date End Date Michael Sinclair NP [address] [place] [phone] PCP - General 12/11/22 documented as of this encounter
--- OUTSIDE RECORDS SUMMARY | 2025-08-13 07:09 | XMS_ITS | Encounter Summary ---
Author Organization [facility] Address [address] [place] [address] Care Team Providers Care Evaporator Name Role Phone Laura Cobian Primary Care Provider + [phone] Encounter Details Date Type Department Care Team (Late st Contact Info) Description 12/03/2013 Conversion Encounter [facility] HISTORICAL CONV [address] [place] [address] Interface, See Report Social History [...] PM EST Clinical Report - Physicians/Mid Levels [facility] Emergency Department [address] [place] [id number] 12/03/2013 Patient: DONYA JERONIMO Sex: F : [...] (FEU) Chest 1V Port: (KAYLAN: 12/03/2013 16:20)( [facility] 12/03/2013 16:20) Final results ED BED 11 Exam Report AP PORTABLE ERECT CHEST 12/03/2013 AT 1343 HOURS INDICATION- Shortness of air, nausea FINDINGS- The heart size is normal. There is no pneumothorax or pleural fluid collection. The lungs are free of focal opacities. DT- 12/03/2013 DE- 12/03/2013 Automatic Transmission Mechanic- UMA MENDEZ Reading Radiologist- AARON MEDINA Releasing Radiologist- AARON MEDINA Released Date Time- 12/03/13 1620 Read By AARON MEDINA Released By AARON MEDINA Lipase: (KAYLAN: 12/03/2013 13:55)( [facility] 12/03/2013 14:21) Final results Test Result Flag Units (Reference) Lipase 24 U/L (6-52) Amylase: (KAYLAN: 12/03/2013 13:55)( [facility] 12/03/2013 14:21) Final results Test Result Flag Units (Reference) Amylase 26 Units/L (20-104) BNP (Natriuretic Peptide): (KAYLAN: 12/03/2013 13:55)( [facility] 12/03/2013 14:28) Final results Test Result Flag Units (Reference) BNP 18 pg/mL (0-100) PTT: (KAYLAN: 12/03/2013 13:55)( [facility] 12/03/2013 14:20) Final results Test Result Flag Units (Reference) PTT 26 Seconds (24-31) PTT = The equivalent PTT values for the therapeutic range of heparinlevels at 0.3 to 0.5 U/ml are 45 to 60 seconds.PTT = The equivalent PTT values for the therapeutic range of heparinlevels at 0.3 to 0.5 U/ml are 45 to 60 seconds. PT with INR: (KAYLAN: 12/03/2013 13:55)( [facility] 12/03/2013 14:20) Final results Test Result Flag Units (Reference) Protime 10.7 Seconds (9.6-11.5) INR 1.00 Therapeutic Ranges for INR:2.0-3.0 (PT 20-30) 2.5-3.5 (PT 25-34) CMP: (KAYLAN: 12/03/2013 13:55)( [facility] 12/03/2013 14:21) Final results Test Result Flag [...] CBC w Auto Diff: (KAYLAN: 12/03/2013 13:55)( [facility] 12/03/2013 14:12) Final results Test Result Flag Units (Reference) WBC 6.56 K/mcL (3.50-10.80) RBC 4.24 M/mcL (3.89-5.14) Hemoglobin 13.7 g/dL (11.5-15.5) Hematocrit 39.6 % (34.5-44.0) MCV 93.4 fL (80.0-99.0) MCH 32.3 H pg (27.0-31.0) MCHC 34.6 g/dL (32.0-36.0) RDWCV 13.5 % (11.3-14.5) Platelet 333 K/mcL (150-450) Abs Neutrophil 3.56 K/mcL (1.50-8.30) Abs Lymph 2.25 K/mcL (0.60-4.80) Abs [place] 0.62 K/mcL (0.00-1.00) Abs Eos 0.11 K/mcL (0.10-0.30) Abs Baso 0.01 K/mcL (0.00-0.20) Neutrophils 54.1 % (41.0-71.0) Lymphocytes 34.3 % (24.0-44.0) Monocytes 9.5 % (0.0-12.0) Eosinophils 1.7 % (0.0-3.0) Basophils 0.2 % (0.0-1.0) Immature Gran 0.2 % (0.0-0.6) Troponin-I Rapid (ER: (KAYLAN: 12/03/2013 15:59)( [facility] 12/03/2013 16:15) Final results Test Result Flag Units (Reference) Rapid Troponin I 0.00 ng/mL (0.00-0.60) Different methodologies are used for cardiac testing between the ED andmain laboratory. Refer to the appropriate reference range forinterpretation. Troponin-I Rapid (ER: (KAYLAN: 12/03/2013 14:08)( MngRcvd 12/03/2013 14:25) Final results Test Result Flag [...] Troponin I 0.00 0.00 - 0.60 ng/mL [facility] Comment: Different methodologies are used for cardiac testing between the ED and main laboratory. Refer to the appropriate reference range for interpretation. Blood specimen (specimen) 12/03/2013 3:59 PM EST Narrative [facility] - 12/03/2013 4:15 PM EST Specimen Type: Blood Historical Provider MD POINT OF CARE TEST ORDERA BLES Final Result Performing Organization Address [facility] Co de Phone Number [facility] [address] [place] [address], * POCT Troponin, Rapid (12/03/2013 2:08 PM EST) Troponin I 0.00 0.00 - 0.60 ng/mL [facility] Comment: Different methodologies are used for cardiac testing between the ED and main laboratory. Refer to the appropriate reference range for interpretation. Blood specimen (specimen) 12/03/2013 2:08 PM EST Narrative [facility] - 12/03/2013 2:25 PM EST Specimen Type: Blood Historical Provider MD POINT OF CARE TEST ORDERA BLES Final Result Performing Organization Address [facility]/ZIP Co de Phone Number [facility] [address] [place] [address], * XR chest 1 vw (12/03/2013 2:03 PM EST) Anatomical Region Laterality Modality Body N/A Radiographic Tammie ging 12/03/2013 2:03 PM EST Narrative 12/03/2013 4:02 PM EST AP PORTABLE ERECT CHEST 12/03/2013 AT 1343 HOURS INDICATION: Shortness of air, nausea FINDINGS: The heart size is normal. There is no pneumothorax or pleural fluid collection. The lungs are free of focal opacities. DE: 12/03/2013 Automatic Transmission Mechanicleyda MEDINA Releasing Pily MEDINA Released Date Time- [...] Quant <0.19 0.00 - 0.50 mg/L FEU [facility] Comment: DF by IF @ 12/03/2013 15:41 Negative predictive value for exclusion of venous thromboembolism: < or = 0.5 mg/L (FEU) Blood specimen (specimen) 12/03/2013 1:55 PM EST [facility] - 12/03/2013 3:42 PM EST Specimen Type: Blood Nicholas Esquivel MD LAB BLOOD ORDERABLES Chika l Result Performing Organization Address [facility]/State/ZIP Co de Phone Number [facility] [address] [place] [address], * Lipase (12/03/2013 1:55 PM EST) Lipase 24 6 - 52 U/L [facility] Blood specimen (specimen) 12/03/2013 1:55 PM EST [facility] - 12/03/2013 2:21 PM EST Specimen Type: Blood us Albert Mason MD LAB BLOOD ORDERABLES Final Res ult Performing Organization Address [facility] Co de Phone Number [facility] [address] [place] [address], [place] [phone] * Amylase (12/03/2013 1:55 PM EST) Amylase 26 20 - 104 Units/L [facility] Blood specimen (specimen) 12/03/2013 1:55 PM EST [facility] - 12/03/2013 2:21 PM EST Specimen Type: Blood us Albert Mason MD LAB BLOOD ORDERABLES Final Res ult Performing Organization Address [facility] Co de Phone Number [facility] [address] [place] [address], [place] [phone] * BNP (12/03/2013 1:55 PM EST) BNP 18 0 - 100 pg/mL [facility] Blood specimen (specimen) 12/03/2013 1:55 PM EST [facility] - 12/03/2013 2:28 PM EST Specimen Type: Blood Albert Mason MD LAB BLOOD ORDERABLES Final Res ult Performing Organization Address [facility] de Phone Number [facility] [address] [place] [address], * APTT (12/03/2013 1:55 PM EST) PTT 26 24 - 31 Seconds [facility] Comment: US by IF @ 12/03/2013 14:20 PTT = The equivalent PTT values for the therapeutic range of heparin levels at 0.3 to 0.5 U/ml are 45 to 60 seconds. PTT = The equivalent PTT values for the therapeutic range of heparin levels at 0.3 to 0.5 U/ml are 45 to 60 seconds. Blood specimen (specimen) 12/03/2013 1:55 PM EST [facility] - 12/03/2013 2:20 PM EST Specimen Type: Blood us Albert Mason MD LAB BLOOD ORDERABLES Final Res ult Performing Organization Address [facility] de Phone Number [facility] [address] [place] [address], * Protime-INR (12/03/2013 1:55 PM EST) Protime 10.7 9.6 - 11.5 Seconds [facility] INR 1.00 [facility] Comment: US by IF @ 12/03/2013 14:20 Therapeutic Ranges for INR: 2.0-3.0 (PT 20-30) 2.5-3.5 (PT 25-34) Blood specimen (specimen) 12/03/2013 1:55 PM EST Narrative [facility] - 12/03/2013 2:20 PM EST Specimen Type: Blood us Albert Mason MD LAB BLOOD ORDERABLES Final Res ult [facility] [address] [place] [address], * Comprehensive metabolic panel (12/03/2013 1:55 PM EST) Glucose 92 70 - 100 mg/dL [facility] BUN 12 6 - 20 mg/dL [facility] Creatinine 0.7 0.6 - 1.3 mg/dL [facility] Sodium 137 136 - 145 mmol/L [facility] Potassium 3.7 3.4 - 5.4 mmol/L [facility] Chloride 105 98 - 107 mmol/L [facility] CO2 26 20 - 31 mmol/L [facility] Calcium 9.4 8.7 - 10.4 mg/dL [facility] Alkaline Phosphatase 69 25 - 100 Units/L [facility] AST (SGOT) 13 8 - 33 Units/L [facility] ALT (SGPT) 18 7 - 40 Units/L [facility] Total Bilirubin 0.5 0.3 - 1.2 mg/dL [facility] Total Protein 7.4 6.4 - 8.3 g/dL [facility] Albumin 4.2 3.4 - 4.8 g/dL [facility] eGFR 101 ml/min/1.7 32 [facility] Comment: DF by IF @ 12/03/2013 14:21 National Kid[employer] Guidelines Stage Description GFR 1 Normal or High 90+ 2 Mild decrease 60-89 3 Moderate decrease 30-59 4 Severe decrease 15-29 5 Kidney failure <15 Anion Gap 6 3 - 11 mmol/L [facility] Blood specimen (specimen) 12/03/2013 1:55 PM EST Narrative [facility] - 12/03/2013 2:21 PM EST Specimen Type: Blood us Albert Mason MD LAB BLOOD ORDERABLES Final Res ult [facility] [address] [place] [address], * (ABNORMAL) CBC and Differential (12/03/2013 1:55 PM EST) WBC 6.56 3.50 - 10.80 K/[facility] RBC 4.24 3.89 - 5.14 /[facility] Hemoglobin 13.7 11.5 - 15.5 g/dL [facility] Hematocrit 39.6 34.5 - 44.0 % [facility] MCV 93.4 80.0 - 99.0 fL [facility] MCH 32.3(H) 27.0 - 31.0 pg [facility] MCHC 34.6 32.0 - 36.0 g/dL [facility] RDW-CV 13.5 11.3 - 14.5 % [facility] Platelets 333 150 - 450 [facility] Neutrophils Absolute 3.56 1.50 - 8.30 [facility] Lymphocytes Absolute 2.25 0.60 - 4.80 [facility] Monocytes Absolute 0.62 0.00 - 1.00 [facility] Eosinophils Absolute 0.11 0.10 - 0.30 [facility] Basophils Absolute 0.01 0.00 - 0.20 [facility] Neutrophil Rel % 54.1 41.0 - 71.0 % [facility] Lymphocyte Rel % 34.3 24.0 - 44.0 % [facility] Monocyte Rel % 9.5 0.0 - 12.0 % [facility] Eosinophil Rel % 1.7 0.0 - 3.0 % [facility] Basophil Rel % 0.2 0.0 - 1.0 % [facility] Immature Granulocyte Rel % 0.2 0.0 - 0.6 % [facility] Blood specimen (specimen) 12/03/2013 1:55 PM EST Narrative [facility] - 12/03/2013 2:12 PM EST Specimen Type: Blood us Albert Mason MD LAB BLOOD ORDERABLES Final Res ult [facility] [address] [place] [address], * SCANNED EKG (12/03/2013) [facility] New Onbase ECG ORDERABLES Final Result documented in this encounter Visit Diagnoses Not on filedocumented in this encounter Additional Health Concerns Infection Onset Date Last Indicated Resolved Time COVID Screen (preop/placement) 07/13/2021 07/13/2021 07/13/2021 1:51 PM EDT documented as of this encounter Care Teams Evaporator Relationship Specialty Start Date End Date Laura Cobian [address] [place] [address] PCP - General Nurse Practitioner 11/23/23 documented as of this encounter
--- OUTSIDE RECORDS SUMMARY | 2025-08-13 07:09 | XMS_ITS | Encounter Summary ---
Author Organization [facility] Address [address] [place] [address] Care Team Providers Care Rubber Printing Machine Operator Name Role Phone Karime Pinto APRN, DNP Primary Care Provider + Reason for Visit * Reason Comments Med Refill Encounter Details Date Type Department Care Team (Late st Contact Info) Description 05/10/2021 Refill Lorna Bee [address] [address] Karime Pinto APRN, DNP [address] [place] [phone] Social History Tobacco Use Types Packs/Day [...] on filedocumented in this encounter Care Teams Rubber Printing Machine Operator Relationship Specialty Start Date End Date Karime Pinto APRN, [facility] [address] [place] [phone] PCP - General 04/08/21 08/23/21 documented as of this encounter
--- OUTSIDE RECORDS SUMMARY | 2025-08-13 07:09 | XMS_ITS | Clinical Summary ---
Author Organization [facility] Address [address] [place] [address] Care Team Providers Care Sub Assembly Team Worker Name Role Phone Michael Sinclair NP Primary Care Provider [phone] Allergies Active Allergy Reactions Criticality Noted Date [...] Diabetes Screening 07/14/2022 07/14/2021, 0 06/09/2021, 06/05/2019 Depression Risk Screening 11/26/2024 SDOH Screening 11/26/2024 Pneumococcal Vaccine: 50+ Years (1 of 1 - PCV) 2025 Zoster Vaccines (1 of 2) 2025 COVID-19 Vaccine (1 - season) 2025 Influenza Vaccine (#1) 2025 9, 12/26/2017, [...] age to complete this topic Care Teams Sub Assembly Team Worker Relationship Specialty Start Date End Date Michael Sinclair NP [address] [place] [address] PCP - General 12/11/22
--- OUTSIDE RECORDS SUMMARY | 2025-08-13 07:09 | XMS_ITS | Encounter Summary ---
Author Organization [employer] ([place], [place], [place], [place]) Address [address] [place] [address] Care Team Providers Care Permastone Installer Name Role Phone Unavailable Primary Care Provider Unavailabl e Encounter Details Date Type Department Care Team (Late st Contact Info) Description 08/30/2021 Transcribed Document [facility] Family Medicine [facility] [place] [address] ProviderElena MD [address] [place] [id number] Social History Tobacco Use Types Packs/Day [...] Elena ProviderMD - 08/30/2021 3:23 PM CDT [address] [address] DONYA JERONIMO :1975 Visit Time:08/30/2021 [...] Where: [address] [place] [address]- Medications What How Much When Instructions Next [...] provider. This is important. Medicines ??? Take nhpi-ond-xlqzkpa and prescription medicines only as told by [...] provider. Document Revised: 07/23/2019 Document Reviewed: 07/23/2019 [employer] Patient Education ?? 2020 [employer] Transesophageal Echocardiogram Transesophageal echocardiogram (GEORGE) is [...] diabetes medicines or blood thinners. ? Taking srog-nvo-kswleyh medicines, vitamins, herbs, and supplements. ? Taking [...] provider. Document Revised: 08/01/2019 Document Reviewed: 02/13/2018 [employer] Patient Education ?? 2020 [employer] Moderate Conscious Sedation, Adult, Care After [...] you are awake and alert. ??? Take ccoy-uik-iftceos and prescription medicines only as told by [...] provider. Document Revised: 10/07/2020 Document Reviewed: 10/07/2020 [employer] Patient Education ?? 2020 [employer]. Emergency Awareness and Preventative Care STROKE is [...] Assistance with quitting is available by contacting 2-157-DALT-NOW. This is a free resource providing counseling, [...] was given the opportunity to ask questions. Patient/Regulatory Product Manager Name: Patient/Regulatory Product Manager Signature: Relationship to Patient: Clinician/Hospital Regulatory Product Manager Signature: Date: documented in this encounter Plan of Treatment Not on file documented as of this encounter Visit Diagnoses Not on filedocumented in this encounter
--- OUTSIDE RECORDS SUMMARY | 2025-08-13 07:09 | XMS_ITS | Referral Summary ---
Author Organization [employer] ([place], [place], [place], [place]) Address [address] [place] [address] Care Team Providers Care Oil Separator Name Role Phone Unavailable Primary Care Provider [...] Date Carl rded Speak language other than Bulgarian at home Not on file 12/08/2023 Want [...] [place] [address] [place] [id number] [employer] [facility] Advance Directives For more information, please contact: [phone] * Full Code (Latest Code Status on File) Date Activated Date Inactivated Comments 12/07/2022 3:45 PM 12/08/2022 7:01 PM
--- OUTSIDE RECORDS SUMMARY | 2025-08-13 07:09 | XMS_ITS | Clinical Summary ---
Author Organization [facility] Address [address] [place] [address] Phone Care Team Providers Care Key Maker Name Role Phone Unavailable Primary Care [...] FIT 2020 Sigmoidoscopy 2020 Virtual Colonography 2020 Pneumococcal Vaccine 50+ (1 of 1 - PCV) 2025 Zoster (1 of 2) 2025 COVID-19 Vaccine (1 - 2023- season) 2025 Influenza Vaccine (#1) 2025 9, [...] MD Impressions 01/09/2024 8:21 AM EST Negative ([id number]) ~ RECOMMENDATION: Routine screening mammogram in 1 [...] for screening mammogram for malignant neoplasm of [id number] ~ MM MAMMO DIGITAL ADRIANNE SCREEN BILAT [...] for screening mammogram for malignant neoplasm of [id number] ~ MM MAMMO DIGITAL ADRIANNE SCREEN BILAT Bilateral CC and MLO view(s) were taken. There are scattered fibroglandular densities. Prior study comparison: Compared with prior studies the most recentbeing none No mammographic evidence of malignancy. ~ ADDENDUM: ~ IMPRESSION: Negative ([id number]) ~ RECOMMENDATION: Routine screening mammogram in 1 [...] of Breast Imaging recommendations. us Not In [facility] Provider IMG MAMMOGRAPHY ORDERABLES Edited Result - Final from Last 3 Months or Most Recently Relevant to Health Maintenance Insurance [id number]
--- OUTSIDE RECORDS SUMMARY | 2025-08-13 07:09 | XMS_ITS | Encounter Summary ---
Author Organization [facility] Address [address] [place] [address] Care Team Providers Care Shaper Hand Name Role Phone Karime Pinto APRN, DNP Primary Care Provider + Reason for Visit * Reason Comments Med Refill Encounter Details Date Type Department Care Team (Late st Contact Info) Description 05/03/2021 Refill Lorna Bee [address] [phone] Karime Pinto APRN, DNP [address] [place] [phone] Social History Tobacco Use Types Packs/Day [...] on filedocumented in this encounter Care Teams Shaper Hand Relationship Specialty Start Date End Date Karime Pinto APRN, DNP [address] [place] [phone] PCP - General 04/08/21 08/23/21 documented as of this encounter
--- OUTSIDE RECORDS SUMMARY | 2025-08-13 07:09 | XMS_ITS | Clinical Summary ---
Author Organization [facility] Address [address] [place] [address] Care Team Providers Care Branch Assistant Name Role Phone Laura Cobian Primary Care Provider [phone] Allergies Active Allergy Reactions Criticality Noted Date [...] 24 hr tabletIndicatio ns:Coronary artery disease of [place] artery of [place] heart with stable angina pectoris Take 1 tablet by mouth Daily. 30 tablet 2 3 Active hydroCHLOROthia zide 25 MG tablet Take 1 tablet by mouth Daily. Active Creon [id number] units capsule delayed-release particles capsule Take 1 [...] - 06/26/2025 3:54 PM EDT Emergency [facility] [address] [place] [phone] Hardy Bryan MD Chest pain, unspecified [...] exists LIPID PANEL 07/14/2022 07/14/2021, 05/26, 06/05/2019 ZOSTER VACCINE (1 of 2) 2025 INFLUENZA VACCINE 06/26/2025 08/28/2019, , 10/26/2016, Additional history exists MAMMOGRAM 01/04/2026 01/04/2024, 02/0 07/2024, 06/13/2021 HEPATITIS C SCREENING Completed 12/04/2019 [...] <14 ng/L 06/26/2025 3:19 PM EDT [facility] Troponin T Numeric Delta 06/26/2025 3:19 PM EDT [facility] Comment:Unable to calculate. Blood Venipuncture / Unknown 06/26/2025 2:56 PM EDT 06/26/2025 3:01 PM EDT Narrative [facility] - 06/26/2025 3:19 PM [...] MD LAB BLOOD ORDERABLES Final Result [facility]
[address] [place] [address], * XR Chest 1 View (06/26/2025 1:28 [...] for add-ons. 06/26/2025 1:30 PM EDT [facility] Comment:Auto resulted. Blood Venipuncture / Unknown 06/26/2025 1:23 PM EDT 06/26/2025 1:25 PM EDT us Hardy Bryan MD LAB BLOOD ORDER ONLY Final Result Performing Organization Address [facility]/ZIP Co de Phone Number [facility]
[address] [place] [address], * Green Top (Gel) (06/26/2025 1:23 PM EDT) Extra Tube Hold for add-ons. 06/26/2025 1:30 PM EDT [facility] Comment:Auto resulted. Blood Venipuncture / Unknown 06/26/2025 1:23 PM EDT 06/26/2025 1:25 PM EDT us [place] Bryan MD LAB BLOOD ORDER ONLY Final Result Performing Organization Address City/[facility]/ZIP Co de Phone Number [facility]
[address] [place] [address], [place] [phone] * CBC Auto Differential (06/26/2025 1:23 PM EDT) WBC 7.02 3.40 - 10.80 10*3/mm3 06/26/2025 1:36 PM EDT [facility] RBC 4.85 3.77 - 5.28 10*6/mm3 06/26/2025 1:36 PM EDT [facility] Hemoglobin 14.8 12.0 - 15.9 g/dL 06/26/2025 1:36 PM EDT [facility] Hematocrit 43.1 34.0 - 46.6 % 06/26/2025 1:36 PM EDT [facility] MCV 88.9 79.0 - 97.0 fL 06/26/2025 1:36 PM EDT [facility] MCH 30.5 26.6 - 33.0 pg 06/26/2025 1:36 PM EDT [facility] MCHC 34.3 31.5 - 35.7 g/dL 06/26/2025 1:36 PM EDT [facility] RDW 12.6 12.3 - 15.4 % 06/26/2025 1:36 PM EDT [facility] RDW-SD 41.2 37.0 - 54.0 fl 06/26/2025 1:36 PM EDT [facility] MPV 9.7 6.0 - 12.0 fL 06/26/2025 1:36 PM EDT [facility] Platelets 412 140 - 450 10*3/mm3 06/26/2025 1:36 PM EDT [facility] Neutrophil % 52.3 42.7 - 76.0 % 06/26/2025 1:36 PM EDT [facility] Lymphocyte % 35.8 19.6 - 45.3 % 06/26/2025 1:36 PM EDT [facility] Monocyte % 10.4 5.0 - 12.0 % 06/26/2025 1:36 PM EDT [facility] Eosinophil % 1.0 0.3 - 6.2 % 06/26/2025 1:36 PM EDT [facility] Basophil % 0.4 0.0 - 1.5 % 06/26/2025 1:36 PM EDT [facility] Immature Grans % 0.1 0.0 - 0.5 % 06/26/2025 1:36 PM EDT [facility] Neutrophils, Absolute 3.67 1.70 - 7.00 10*3/mm3 06/26/2025 1:36 PM EDT [facility] Lymphocytes, Absolute 2.51 0.70 - 3.10 10*3/mm3 06/26/2025 1:36 PM EDT [facility] Monocytes, Absolute 0.73 0.10 - 0.90 10*3/mm3 06/26/2025 1:36 PM EDT [facility] Eosinophils, Absolute 0.07 0.00 - 0.40 10*3/mm3 06/26/2025 1:36 PM EDT [facility] Basophils, Absolute 0.03 0.00 - 0.20 10*3/mm3 06/26/2025 1:36 PM EDT [facility] Immature Grans, Absolute 0.01 0.00 - 0.05 10*3/mm3 06/26/2025 1:36 PM EDT [facility] nRBC 0.0 0.0 - 0.2 /100 WBC 06/26/2025 1:36 PM EDT [facility] Blood Venipuncture / Unknown 06/26/2025 1:23 PM EDT 06/26/2025 1:25 PM EDT us [place] Bryan MD LAB BLOOD ORDERABLES Final Result [facility]
[address] [place] [address], [place] [phone] * Lavender Top (06/26/2025 1:23 PM EDT) Extra Tube hold for add-on 06/26/2025 1:30 PM EDT [facility] Comment:Auto resulted Blood Venipuncture / Unknown 06/26/2025 1:23 PM EDT 06/26/2025 1:25 PM EDT us [place] Bryan MD LAB BLOOD ORDER ONLY Final Result [facility]
[address] [place] [address], [place] [phone] * Light Blue Top (06/26/2025 1:23 PM EDT) Pathologist [facility] Extra Tube Hold for add-ons. 06/26/2025 1:30 PM EDT [facility] Comment:Auto resulted Blood Venipuncture / Unknown 06/26/2025 1:23 PM EDT 06/26/2025 1:25 PM EDT us Hardy Bryan MD LAB BLOOD ORDER ONLY Final Result [facility]
[address] [place] [address], [place] [phone] * High Sensitivity Troponin T (06/26/2025 1:23 PM EDT) [facility] HS Troponin T <6 <14 ng/L 06/26/2025 1:48 PM EDT [facility] Blood Venipuncture / Unknown 06/26/2025 1:23 PM EDT 06/26/2025 1:25 PM EDT Narrative [facility] - 06/26/2025 1:48 PM [...] MD LAB BLOOD ORDERABLES Final Result [facility]
[address] [place] [address], [place] [phone] * (ABNORMAL) Comprehensive Metabolic Panel (06/26/2025 1:23 PM EDT) [facility] Glucose 174(H) 65 - 99 mg/dL 06/26/2025 1:46 PM EDT [facility] BUN 20.0 6.0 - 20.0 mg/dL 06/26/2025 1:46 PM T [facility] Creatinine 0.72 0.57 - 1.00 mg/dL 06/26/2025 1:46 PM T [facility] Sodium 131(L) 136 - 145 mmol/L 06/26/2025 1:46 PM EDT [facility] Potassium 4.2 3.5 - 5.2 mmol/L 06/26/2025 1:46 PM T [facility] Chloride 95(L) 98 - 107 mmol/L 06/26/2025 1:46 PM T [facility] CO2 23.6 22.0 - 29.0 mmol/L 06/26/2025 1:46 PM EDT [facility] Calcium 9.9 8.6 - 10.5 mg/dL 06/26/2025 1:46 PM EDT [facility] Total Protein 7.7 6.0 - 8.5 g/dL 06/26/2025 1:46 PM [facility] Albumin 4.4 3.5 - 5.2 g/dL 06/26/2025 1:46 PM [facility] ALT (SGPT) 32 1 - 33 U/L 06/26/2025 1:46 PM EDT [facility] AST (SGOT) 10 1 - 32 U/L 06/26/2025 1:46 PM T [facility] Alkaline Phosphatase 103 39 - 117 U/L 06/26/2025 1:46 PM T [facility] Total Bilirubin 0.5 0.0 - 1.2 mg/dL 06/26/2025 1:46 PM T [facility] Globulin 3.3 gm/dL 06/26/2025 1:46 PM [facility] A/G Ratio 1.3 g/dL 06/26/2025 1:46 PM EDT [facility] BUN/Creatinine Ratio 27.8(H) 7.0 - 25.0 06/26/2025 1:46 PM EDT [facility] Anion Gap 12.4 5.0 - 15.0 mmol/L 06/26/2025 1:46 PM EDT [facility] eGFR 102.0 >60.0 mL/min/1.7 3 06/26/2025 1:46 PM EDT [facility] Blood Venipuncture / Unknown 06/26/2025 1:23 PM EDT 06/26/2025 1:25 PM EDT Narrative [facility] - 06/26/2025 1:46 PM EDT GFR [...] MD LAB BLOOD ORDERABLES Final Result [facility]
[address] [place] [address], * ECG 12 Lead ED Triage Standing Order; Chest Pain (06/26/2025 1:09 PM EDT) Hardy Bryan MD ECG ORDERABLES Final Result * (ABNORMAL) Hemoglobin A1c (07/14/2021 6:31 AM EDT) Hemoglobin A1C 5.70(H) 4.80 - 5.60 % 07/14/2021 7:13 AM EDT [facility] Blood Venipuncture / Unknown 07/14/2021 6:31 AM EDT 07/14/2021 6:53 AM EDT Narrative [facility] - 07/14/2021 7:13 AM EDT Hemoglobin A1C Ranges: Increased Risk for Diabetes 5.7% to 6.4% Diabetes >= 6.5% Diabetic Goal < 7.0% Ayesha Jennings ELECTRICAL DISCHARGE MACHINE OPERATOR LAB BLOOD ORDERABLES Final Result [facility]
[address] [place] [address], * (ABNORMAL) Lipid Panel (07/14/2021 6:31 AM EDT) Total Cholesterol 192 0 - 200 mg/dL 07/14/2021 7:38 AM EDT [facility] Triglycerides 326(H) 0 - 150 mg/dL 07/14/2021 7:38 AM EDT [facility] HDL Cholesterol 34(L) 40 - 60 mg/dL 07/14/2021 7:38 AM EDT [facility] LDL Cholesterol 103(H) 0 - 100 mg/dL 07/14/2021 7:38 AM EDT [facility] VLDL Cholesterol 55(H) 5 - 40 mg/dL 07/14/2021 7:38 AM EDT [facility] LDL/HDL Ratio 2.73 07/14/2021 7:38 AM EDT [facility] Blood Venipuncture / Unknown 07/14/2021 6:31 AM EDT 07/14/2021 6:53 AM EDT Narrative [facility] - 07/14/2021 7:38 AM EDT Cholesterol [...] 160-189 mg/dL Very High >189 mg/dL Ayesha Jennings ELECTRICAL DISCHARGE MACHINE OPERATOR LAB BLOOD ORDERABLES Final Result [facility]
[address] [place] [address], * Mammo Screening Digital Tomosynthesis Bilateral With [...] architectural distortion to suggest malignancy. Shana Min ELECTRICAL DISCHARGE MACHINE OPERATOR IMG MAMMOGRAPHY ORD ERABLES Final Result * Hepatitis C Antibody (12/04/2019 3:22 PM EST) Hepatitis C Ab Non-Reacti ve Non-Reacti ve 12/04/2019 11:49 PM EST [facility] Blood Venipuncture / Unknown 12/04/2019 3:22 PM EST 12/04/2019 3:22 PM EST Narrative [facility] - 12/04/2019 11:49 PM EST Results may be falsely decreased if patient taking Biotin. us Graciela Darnell ELECTRICAL DISCHARGE MACHINE OPERATOR LAB BLOOD ORDERABLES Final Resu lt [facility]
[address] [place] [address], from Last 3 Months or Most Recently [...] pulse or is breathing): Full Care Teams Branch Assistant Relationship Specialty Start Date End Date Laura Cobian [place] [address] [place] [address] PCP - General Nurse Practitioner 11/23/23
--- OUTSIDE RECORDS SUMMARY | 2025-08-13 07:09 | XMS_ITS | Encounter Summary ---
Author Organization [employer] ([place], [place], [place], [place]) Address [address] [place] [address] Care Team Providers Care Acid Recovery Operator Name Role Phone Unavailable Primary Care Provider Unavailabl e Encounter Details Date Type Department Care Team (Late st Contact Info) Description 08/30/2021 Transcribed Document [facility] [place] [facility] [address] ProviderElena MD [address] [place] [address] [id number] Social History Tobacco Use Types Packs/Day Years [...] N/A Warfarin Discharge Ins : N/A ISIS RYDER RN - 08/30/2021 13:21 EDT documented in this encounter Plan of Treatment Not on file documented as of this encounter Visit Diagnoses Not on filedocumented in this encounter
--- OUTSIDE RECORDS SUMMARY | 2025-08-13 07:09 | XMS_ITS | Encounter Summary ---
Author Organization [employer] ([place], [place], [place], [place]) Address [address] [place] [address] Care Team Providers Care Leave Manager Name Role Phone Unavailable Primary Care Provider Unavailabl e Reason for Visit * Reason Comments Medication Refill Encounter Details Date Type Department Care Team (Late st Contact Info) Description 05/06/2024 Refill [facility] Emergency Department [address] [place] [address] Marycruz Trevizo, FUEL CELL ASSEMBLER [address] [place] [address] Social History Tobacco Use Types Packs/Day Years [...] Date Carl rded Speak language other than Sinhala at home Not on file 12/08/2023 Want [...]
[2025-08-13] MEDS: LACTATED RINGERS 1000ML 1,000 ML 999 ML IV (07:22)
--- NOTE | 2025-08-13 07:47 | CT_ITS ---
FINAL REPORT TECHNIQUE: Noncontrast exam This study was performed with techniques to keep radiation doses as low as reasonably achievable, (ALARA). Individualized dose reduction techniques using automated exposure control or adjustment of mA and/or kV according to the patient's size were employed. CLINICAL HISTORY: chronic blurry vision/nonspecific dizziness COMPARISON: 07/09/2025 FINDINGS: CT HEAD: There is a low density in the left basal ganglia, also seen on the prior exam of 07/09/2025, favor dilated perivascular space rather than infarct. No acute intracranial abnormality is identified. Ventricles are normal. There is no hemorrhage. No mass effect is seen. Bone windows show no evidence of fracture. IMPRESSION: 1. No acute findings 2. Low-density in the left basal ganglia, stable since the prior exam of 07/09/2025, favor dilated perivascular space rather than infarct. Reviewed, Interpreted and Dictated by Zeyad Salvador MD Transcribed by Pratibha Frost Authenticated and [facility]
--- NOTE | 2025-08-13 07:48 | CT_ITS ---
FINAL REPORT CLINICAL HISTORY: chronic blurry vision/nonspecific dizziness COMPARISON: 02/21/2024 FINDINGS: CTA HEAD TECHNIQUE: Thin section axial CT with contrast with 3D MIP reconstruction This study was performed with techniques to keep radiation doses as low as reasonably achievable, (ALARA). Individualized dose reduction techniques using automated exposure control or adjustment of mA and/or kV according to the patient's size were employed. FINDINGS: No aneurysm is seen. Major intracranial vessels are patent without significant stenosis. . IMPRESSION: Unremarkable This study was performed using automated techniques to achieve radiation exposure as low as reasonably achievable Reviewed, Interpreted and Dictated by Zeyad Salvador MD Transcribed by Pratibha Frost Authenticated and [facility]
--- NOTE | 2025-08-13 07:48 | CT_ITS ---
FINAL REPORT CLINICAL HISTORY: chronic blurry vision/nonspecific dizziness COMPARISON: 02/21/2024 FINDINGS: CT NECK ANGIO, WITHOUT AND WITH CONTRAST TECHNIQUE: Thin section axial CT with contrast with multiplanar 3D MIP reconstruction. This study was performed with techniques to keep radiation doses as low as reasonably achievable, (ALARA). Individualized dose reduction techniques using automated exposure control or adjustment of mA and/or kV according to the patient's size were employed. NASCET criteria and technique was utilized during interpretation. FINDINGS: Aortic arch: Arch shows no significant narrowing. Great vessel origins are widely patent. Right carotid: No significant stenosis is seen of the cervical common or internal carotid artery. Minimal calcified plaque is present at the carotid bifurcation. Left carotid: No significant stenosis is seen of the cervical common or internal carotid artery. Minimal calcified plaque is present at the carotid bifurcation. Vertebrals: The right vertebral artery is dominant. The left vertebral artery arises directly from the aortic arch. No significant stenosis is present. IMPRESSION: No significant stenosis of the cervical carotid arteries The right vertebral artery is dominant, and the left vertebral artery arises directly from the aortic arch. This study was performed using automated techniques to achieve radiation exposure as low as reasonably Reviewed, Interpreted and Dictated by Zeyad Salvador MD Transcribed by Pratibha Frost Authenticated and [facility]
[2025-08-13] MEDS: SODIUM CHLORIDE 0.9% 10ML SYR (RAD ONLY) 10 ML IV (08:18)
[2025-08-13] MEDS: 0.9 % SODIUM CHLORIDE 50 ML VIAL IV (08:18)
[2025-08-13] MEDS: IOPAMIDOL-370 (76%);100ML BOTTLE 75 ML IV (08:18)
--- NOTE | 2025-08-13 09:31 | PC.NURSE ---
is speaking with via telephone at this time.
--- NOTE | 2025-08-13 09:45 | ECG_ITS ---
APPROVED REPORT Exam: Resting ECG HR:68 bpm ECG Measurements Heart Rate 68 AXES HI 171 P 43 QRSd 92 QRS 0 QT 435 T -5 QTc 452 Conclusion SINUS RHYTHM POSSIBLE INFERIOR MYOCARDIAL INFARCTION , PROBABLY OLD [30 ms Q WAVE IN II/aVF] BORDERLINE ECG Electronically signed by : NALDO HERNANDES, 08/16/2025 08:37:32
[2025-08-13 09:59] LABS: Troponin I < 0.01 ng/ml (0.00-0.034)
== END 2025-08-13 10:45 | disposition home or self-care (01) ==
PROVIDERS: Emergency Medicine; Emergency Provider Emergency Medicine; PCP Nurse Practitioner
DX: R10.13 Epigastric pain (principal); R07.9 Chest pain, unspecified; R20.2 Paresthesia of skin; H53.8 Other visual disturbances; R94.02 Abnormal brain scan; I10 Essential (primary) hypertension; K86.81 Exocrine pancreatic insufficiency; Z87.891 Personal history of nicotine dependence
CPT/HCPCS: 70450; 70496; 70498; 71045; 80053; 83690; 84484; 85025; 85378; 85610; 93005; 96361; 96374; 99285; J2405; J7120; Q9967

== ENCOUNTER 2025-08-20 15:28 | Outpatient (CLI) | payer OTHER, SELFPAY ==
--- OUTSIDE RECORDS SUMMARY | 2025-06-26 13:00 | XMS_ITS | Encounter Summary ---
Author Organization [facility] Address [address] [place] [address] Care Team Providers Care Professor Sculpture Name Role Phone Laura Cobian Primary Care Provider + [phone] Reason for Visit * Reason Comments Chest Pain Encounter Details Date Type Department Care Team (Late st Contact Info) Description 06/26/2025 1:00 PM EDT - 06/26/2025 3:54 PM EDT Emergency [facility] EMERGENCY DEPARTMENT [address] [place] [address] [phone] Hardy Bryan MD [address] [place] [address] Chest pain, unspecified type (Primary Dx); Acute nonintractable headache, unspecified headache type Discharge Disposition: Home or Self Care Social History Tobacco Use Types Packs/Day Years Used Date Smoking Tobacco: Every Day Cigarettes Passive Smoke Exposure: Past Smokeless Tobacco: Never Alcohol Use Standard Drinks/Week Comments No 0 (1 standard drink = 0.6 oz pur e alcohol) Abuse Screen Answer Date Recorded Feels Unsafe at Home or Work/School no 06/26/2025 Feels Threatened by Someone no 11/2024 Does Anyone Try to Keep You From Having Contact with Others or Doing Things Outside Your Home? no 06/26/2025 Physical Signs of Abuse Present no 06/26/2025 Comments No Sex and Gender Information Value Date Recorded Sex Assigned at Not on file Legal Sex Female 11:53 AM EDT Gender Identity Not on file Sexual Orientation Not on file documented as of this encounter Last Filed Vital Signs Vital Sign Reading Time Taken Comments Blood Pressure 116/87 06/26/2025 3:30 PM EDT Pulse 70 06/26/2025 3:30 PM EDT Temperature 36.4 C (97.5 F) 06/26/2025 12:58 PM EDT Respiratory Rate 18 06/26/2025 12:58 PM EDT Oxygen Saturation 96% 06/26/2025 3:30 PM EDT Inhaled Oxygen Concentration - - Weight 86.2 kg (190 lb) 06/26/2025 12:58 PM EDT Height 149.9 cm (4' 11 ) 06/26/2025 12:58 PM EDT Body Mass Index 38.38 06/26/2025 12:58 PM EDT documented in this encounter Functional Status * Calculated C-SSRS Risk Score (Lifetime/Recent) Answer Date of Assessment Author No Risk Indicated 06/26/2025 2:57 PM EDT Nury Dawson RN * [place] Suicide Severity Rating Scale (Screener/Recent Self-Report) Question Answer Date of Assessment Author 1. Wish to be (Past 1 Month) No 025 2:57 PM EDT Nury Dawson RN 2. Non-Specific Active Suici kylie Thoughts (Past 1 Month) No 06/26/2025 2:57 PM EDT Charlene Dawson RN 6. Suicidal Behavior (Lifetime) No 5 2:57 PM EDT Nury Dawson RN documented as of this encounter Discharge Instructions * Attachments The following attachments cannot be sent through Care Everywhere. * General Headache Without Cause Lvzu-nx-Nmcy (Israeli) * Nonspecific Chest Pain Adult Xoez-zs-Eclb (Israeli) documented in this encounter Medications at Time of Discharge amLODIPine (NORVASC) 10 MG tablet Take 1 tablet by mouth Daily. 10/05/2021 aspirin 81 MG EC tablet Take 1 tablet by mouth Daily. 12/08/2022 atorvastatin (LIPITOR) 80 MG tablet Take 1 tablet by mouth every night at bedtime. clopidogrel (PLAVIX) 75 MG tablet Take 1 tablet by mouth Daily. Creon [id number] units capsule delayed-release particles capsule Take 1 capsule by mouth 3 (Three) Times a Day With Meals. famotidine (PEPCID) 20 MG tablet Take 1 tablet by mouth 2 (Two) Times a Day. 10 tablet 06/24/2024 hydroCHLOROthiazi de 25 MG tablet Take 1 tablet by mouth Daily. HYDROcodone-aceta minophen (NORCO) 5-325 MG per tabletIndications :Left upper quadrant abdominal pain Take 1 tablet by mouth Every 6 (Six) Hours As Needed for Severe Pain. 12 tablet 11/15/2023 hydrOXYzine pamoate (VISTARIL) 50 MG capsule Take 1 capsule by mouth 3 (Three) Times a Day As Needed for Anxiety. ibuprofen (ADVIL,MOTRIN) 800 MG tablet Take 1 tablet by mouth Every 6 (Six) Hours As Needed for Mild Pain. isosorbide mononitrate (IMDUR) 30 MG 24 hr tabletIndications :Coronary artery disease of [place] artery of [place] heart with stable angina pectoris Take 1 tablet by mouth Daily. 30 tablet 2 11/23/2023 ketorolac (TORADOL) 10 MG tablet Take 1 tablet by mouth Every 6 (Six) Hours As Needed for Moderate Pain. 20 tablet 06/24/2024 metoprolol succinate XL (TOPROL-XL) 50 MG 24 hr tablet Take 1 tablet by mouth Daily. 08/01/2016 ondansetron (ZOFRAN) 4 MG tablet Take 1 tablet by mouth Every 6 (Six) Hours As Needed for Nausea or Vomiting. 30 tablet 1 07/15/2021 4:46 PM EDT 07/15/2021 pantoprazole (PROTONIX) 40 MG EC tablet Take 1 tablet by mouth Daily. promethazine (PHENERGAN) 12.5 MG tablet Take 1 tablet by mouth Every 8 (Eight) Hours As Needed for Nausea or Vomiting. 30 tablet 1 07/15/2021 4:46 PM EDT 07/15/2021 sennosides-docusa te (Senna S) 8.6-50 MG per tablet Take 2 tablets by mouth At Night As Needed for Constipation for up to 7 days. PRN constipation 14 tablet 11/15/2023 0 sucralfate (CARAFATE) 1 g tablet Take 1 tablet by mouth 4 (Four) Times a Day. documented as of this encounter ED Notes * Hardy Bryan MD - 06/26/2025 2:12 PM EDT EMERGENCY DEPARTMENT ENCOUNTER Pt Name: Donya Jeronimo Pt : 1975 Room Number: 02/27 Date of encounter: 06/26/2025 PCP: Laura Cobian ED Provider: Hardy Bryan MD Historian: Patient HPI: Chief Complaint Patient presents with Chest Pain Context: Donya Jeronimo is a 50 y.o. female who presents to the ED c/o chest pain, located L chest, pressure-like sensation, associate with headache, shortness of breath, nausea. Started while shewas driving earlier. Has had chest pain before but never quite like this. Not usually associate with headache and nausea. Patient also reports history of anxiety. No leg swelling, recent long travel PAST MEDICAL HISTORY Past Medical History: Diagnosis Date Anemia Heart murmur History of echocardiogram 01/31/2013 showed an injection fraction of 65% with trace mitral, trace tricuspid and trace pulmonic regurgitation Hyperlipidemia Hypertension IUD (intrauterine device) in place mirena, placed May 2019 Vertigo PAST SURGICAL HISTORY Past Surgical History: Procedure Laterality Date CARPAL TUNNEL RELEASE Left SECTION x2 LEEP OTHER SURGICAL HISTORY ORIF Left Arm SALPINGO OOPHORECTOMY TUBAL FAMILY HISTORY Family History Problem Relation Age of Onset Heart disease Father Breast cancer Maternal Grandmother SOCIAL HISTORY Social History Socioeconomic History Marital status: Single Tobacco Use Smoking status: Every Day Current packs/day: 0.25 Types: Cigarettes Passive exposure: Past Smokeless tobacco: Never Vaping Use Vaping status: Never Used Substance and Sexual Activity Alcohol use: No Drug use: No Sexual activity: Defer ALLERGIES Lisinopril, Percocet [oxycodone-acetaminophen], and Sulfa antibiotics REVIEW OF SYSTEMS Review of Systems Constitutional: Negative for chills and fever. HENT: Negative for sore throat and trouble swallowing. Eyes: Negative for pain and redness. Respiratory: Positive for shortness of breath. Negative for cough. Cardiovascular: Positive for chest pain. Negative for leg swelling. Gastrointestinal: Positive for nausea. Negative for abdominal pain and vomiting. Genitourinary: Negative for dysuria and urgency. Musculoskeletal: Negative for back pain and neck pain. Skin: Negative for rash and wound. Neurological: Positive for headaches. Negative for dizziness and weakness. All systems reviewed and negative except for those discussed in HPI. PHYSICAL EXAM I have reviewed the triage vital signs and nursing notes. ED Triage Vitals [06/26/25 1258] Temp Heart Rate Resp BP SpO2 97.5 ??F (36.4 ??C) 89 18 139/94 97 % Temp src Heart Rate Source Patient Position BP Location FiO2 (%) Oral Monitor Sitting Left arm -- Physical Exam Constitutional: Appearance: Normal appearance. She is not ill-appearing. HENT: Head: Normocephalic and atraumatic. Right Ear: External ear normal. Left Ear: External ear normal. Nose: Nose normal. Mouth/Throat: Mouth: Mucous membranes are moist. Pharynx: Oropharynx is clear. Eyes: Extraocular Movements: Extraocular movements intact. Conjunctiva/sclera: Conjunctivae normal. Pupils: Pupils are equal, round, and reactive to light. Cardiovascular: Rate and Rhythm: Normal rate and regular rhythm. Pulses: Radial pulses are 2+ on the right side and 2+ on the left side. Pulmonary: Effort: Pulmonary effort is normal. Breath sounds: Normal breath sounds. Abdominal: General: There is no distension. Palpations: Abdomen is soft. Tenderness: There is no abdominal tenderness. Musculoskeletal: General: No tenderness or deformity. Normal range of motion. Cervical back: Normal range of motion and neck supple. Right lower leg: No edema. Left lower leg: No edema. Skin: General: Skin is warm and dry. Capillary Refill: Capillary refill takes less than 2 seconds. Neurological: General: No focal deficit present. Mental Status: She is alert and oriented to person, place, and time. LAB RESULTS Recent Results (from the past 24 hours) Comprehensive Metabolic Panel Collection Time: 06/26/25 1:23 PM Specimen: Blood Result Value Ref Range Glucose 174 (H) 65 - 99 mg/dL BUN 20.0 6.0 - 20.0 mg/dL Creatinine 0.72 0.57 - 1.00 mg/dL Sodium 131 (L) 136 - 145 mmol/L Potassium 4.2 3.5 - 5.2 mmol/L Chloride 95 (L) 98 - 107 mmol/L CO2 23.6 22.0 - 29.0 mmol/L Calcium 9.9 8.6 - 10.5 mg/dL Total Protein 7.7 6.0 - 8.5 g/dL Albumin 4.4 3.5 - 5.2 g/dL ALT (SGPT) 32 1 - 33 U/L AST (SGOT) 10 1 - 32 U/L Alkaline Phosphatase 103 39 - 117 U/L Total Bilirubin 0.5 0.0 - 1.2 mg/dL Globulin 3.3 gm/dL A/G Ratio 1.3 g/dL BUN/Creatinine Ratio 27.8 (H) 7.0 - 25.0 Anion Gap 12.4 5.0 - 15.0 mmol/L eGFR 102.0 >60.0 mL/min/1.73 High Sensitivity Troponin T Collection Time: 06/26/25 1:23 PM Specimen: Blood Result Value Ref Range HS Troponin T <6 <14 ng/L Green Top (Gel) Collection Time: 06/26/25 1:23 PM Result Value Ref Range Extra Tube Hold for add-ons. Lavender Top Collection Time: 06/26/25 1:23 PM Result Value Ref Range Extra Tube hold for add-on Gold Top - SST Collection Time: 06/26/25 1:23 PM Result Value Ref Range Extra Tube Hold for add-ons. Light Blue Top Collection Time: 06/26/25 1:23 PM Result Value Ref Range Extra Tube Hold for add-ons. CBC Auto Differential Collection Time: 06/26/25 1:23 PM Specimen: Blood Result Value Ref Range WBC 7.02 3.40 - 10.80 10*3/mm3 RBC 4.85 3.77 - 5.28 10*6/mm3 Hemoglobin 14.8 12.0 - 15.9 g/dL Hematocrit 43.1 34.0 - 46.6 % MCV 88.9 79.0 - 97.0 fL MCH 30.5 26.6 - 33.0 pg MCHC 34.3 31.5 - 35.7 g/dL RDW 12.6 12.3 - 15.4 % RDW-SD 41.2 37.0 - 54.0 fl MPV 9.7 6.0 - 12.0 fL Platelets 412 140 - 450 10*3/mm3 Neutrophil % 52.3 42.7 - 76.0 % Lymphocyte % 35.8 19.6 - 45.3 % Monocyte % 10.4 5.0 - 12.0 % Eosinophil % 1.0 0.3 - 6.2 % Basophil % 0.4 0.0 - 1.5 % Immature Grans % 0.1 0.0 - 0.5 % Neutrophils, Absolute 3.67 1.70 - 7.00 10*3/mm3 Lymphocytes, Absolute 2.51 0.70 - 3.10 10*3/mm3 Monocytes, Absolute 0.73 0.10 - 0.90 10*3/mm3 Eosinophils, Absolute 0.07 0.00 - 0.40 10*3/mm3 Basophils, Absolute 0.03 0.00 - 0.20 10*3/mm3 Immature Grans, Absolute 0.01 0.00 - 0.05 10*3/mm3 nRBC 0.0 0.0 - 0.2 /100 WBC High Sensitivity Troponin T 1Hr Collection Time: 06/26/25 2:56 PM Specimen: Blood Result Value Ref Range HS Troponin T <6 <14 ng/L Troponin T Numeric Delta If labs were ordered, I independently reviewed the results and considered them in treating the patient. RADIOLOGY XR Chest 1 View Result Date: 06/26/2025 PROCEDURE: XR CHEST 1 VW- HISTORY: Chest Pain Triage Protocol COMPARISON: 06/24/2024 FINDINGS: Portable view of the chest demonstrates the lungs to be grossly clear. There is no evidence of effusion, pneumothorax or other significant pleural disease. The mediastinum is unremarkable. The heart size is normal. Unremarkable portable chest. This report was signed and finalized on 06/26/2025 1:30 PM by Marino Salvador MD. PROCEDURES Procedures Interpretations O2 Sat: The patient's oxygen saturation was 89% on Room Air. This was independently interpreted by me as Normal EKG: I reviewed and independently interpreted the EKG as sinus rhythm rate of 80 bpm, left axis deviation, normal intervals, no ST elevation, T wave inversion in lead III Cardiac Monitoring: I reviewed and independently interpreted the Rhythm Strip as Normal Sinus rhythm rate of 89 Radiology: I ordered and independently reviewed the above noted radiographic studies. I viewed images of Chest Xray which showed No pulmonary process per my independent interpretation. See radiologist's dictation for official interpretation. HEART Score: 2 MEDICATIONS GIVEN IN ER Medications sodium chloride 0.9 % flush 10 mL (has no administration in time range) aspirin tablet 325 mg (325 mg Oral Given 06/26/25 1331) ketorolac (TORADOL) injection 15 mg (15 mg Intravenous Given 06/26/25 1334) metoclopramide (REGLAN) injection 10 mg (10 mg Intravenous Given 06/26/25 1335) diphenhydrAMINE (BENADRYL) injection 25 mg (25 mg Intravenous Given 06/26/25 1332) magnesium sulfate in D5W 1g/100mL (PREMIX) (0 g Intravenous Stopped 06/26/25 1414) MEDICAL DECISION MAKING, PROGRESS, and CONSULTS All labs, if obtained, have been independently reviewed by me. All radiology studies, if obtained, have been reviewed by me and the radiologist dictating the report. All EKG's, if obtained, have beenindependently viewed and interpreted by me Discussion below represents my analysis of pertinent findings related to patient's condition, differential diagnosis, treatment plan and final disposition. Differential diagnosis: 50-year-old female presented to the ED with complaint of chest discomfort, its fairly atypical, started suddenly while driving, he is a pressure-like sensation with some nausea however. She has a history of a stent placement couple years ago, she had a negative stress test since then, regular follow-up with her family medicine physician assistant which has been benign. Will obtain chest x-ray, EKG, laboratory workup including troponins, will treat with Toradol, Reglan and Benadryl for headache, nausea. Patient PERC and Wells negative for acute PE Additional Sources: External (non-ED) record review: Nuclear medicine stress test and echocardiogram from 11/28/2023 bothnegative Orders placed during this visit: Orders Placed This Encounter Procedures XR Chest 1 View Paul Draw Comprehensive Metabolic Panel High Sensitivity Troponin T CBC Auto Differential High Sensitivity Troponin T 1Hr NPO Diet NPO Type: Strict NPO Undress & Gown Continuous Pulse Oximetry Oxygen Therapy- Nasal Cannula; Titrate 1-6 LPM Per SpO2; 90 - 95% ECG 12 Lead ED Triage Standing Order; Chest Pain ECG 12 Lead ED Triage Standing Order; Chest Pain Insert Peripheral IV CBC & Differential Green Top (Gel) Lavender Top Gold Top - SST Light Blue Top Additional orders considered but not ordered: None ED Course: Consultants: None ED Course as of 06/26/25 1544 SunJun 26, 2025 1340 CBC & Differential CBC is unremarkable [CS] 1347 Comprehensive Metabolic Panel(!) Chemistry with mild hyponatremia [CS] 1353 High Sensitivity Troponin T Initial troponin level is negative, will repeat per high sensitivity troponin protocol [CS] 1456 High Sensitivity Troponin T 1Hr Repeat troponin is similarly negative [CS] 1528 Patient has 2 negative troponins, normal laboratory workup, her vital signs are stable, she feels much better after symptomatic treatment for headache, we discussed the negative cardiac workup, need to follow-up with her primary care physician as well as her family medicine physician assistant. I asked the patient to return to the ED for new or concerning symptoms. Patient voices understanding and is agreeable with the plan for discharge home. [CS] ED Course User Index [CS] Hardy Bryan MD After my consideration of clinical presentation and any laboratory/radiology studies obtained, I discussed the findings with the patient/patient sales solutions representative who is in agreement with the treatment plan and the final disposition. Risks and benefits of discharge were discussed. OF 15:44 EDT VITALS: BP - 106/72 HR - 63 TEMP - 97.5 ??F (36.4 ??C) (Oral) O2 SATS - 96% I reviewed the patient's prescription monitoring report if available prior to discharge DIAGNOSIS Final diagnoses: Chest pain, unspecified type Acute nonintractable headache, unspecified headache type DISPOSITION ED Disposition ED Disposition Discharge Condition Stable Comment -- Please note that portions of this document were completed with voice recognition software. Hardy Bryan MD 06/26/25 1541 documented in this encounter Plan of Treatment Not on file documented as of this encounter Procedures Procedure Name Priority Date/Time Associated Diagnosis Comments HIGH SENSITIVITIY TROPONIN T 1HR STAT 06/26/2025 2:56 PM EDT XR CHEST 1 VW STAT 06/26/2025 1:28 PM EDT GOLD TOP - SST STAT 06/26/2025 1:23 PM EDT DK GREEN TOP STAT 06/26/2025 1:23 PM EDT CBC WITH AUTO DIFFERENTIAL STAT 06/26/2025 1:23 PM EDT LAVENDER TOP STAT 06/26/2025 1:23 PM EDT LIGHT BLUE TOP STAT 06/26/2025 1:23 PM EDT RAINBOW DRAW STAT 06/26/2025 1:23 PM EDT TROPONIN STAT 06/26/2025 1:23 PM EDT CBC AND DIFFERENTIAL STAT 06/26/2025 1:23 PM EDT COMPREHENSIVE METABOLIC PANEL STAT 06/26/2025 1:23 PM EDT ECG 12-LEAD STAT 06/26/2025 1:09 PM EDT documented in this encounter Results * High Sensitivity Troponin T 1Hr (06/26/2025 2:56 PM EDT) HS Troponin T <6 <14 ng/L 06/26/2025 3:19 PM EDT [facility] Troponin T Numeric Delta 06/26/2025 3:19 PM EDT [facility] Comment:Unable to calculate. Blood Venipuncture / Unknown 06/26/2025 2:56 PM EDT 06/26/2025 3:01 PM EDT Narrative [facility] - 06/26/2025 3:19 PM EDT High Sensitive Troponin T Reference Range: <14.0 ng/L- Negative Female for AMI <22.0 ng/L- Negative Male for AMI >=14 - Abnormal Female indicating possible myocardial injury. >=22 - Abnormal Male indicating possible myocardial injury. Clinicians would have to utilize clinical acumen, EKG, Troponin, and serial changes to determine if it is an Acute Myocardial Infarction or myocardial injury due to an underlying chronic condition. us Hardy Bryan MD LAB BLOOD ORDERABLES Final Result [facility]
[address] [place] [address], [place] [phone] * XR Chest 1 View (06/26/2025 1:28 PM EDT) Anatomical Region Laterality Modality Body N/A Radiographic Tammie ging 06/26/2025 1:30 PM EDT Impressions 06/26/2025 1:30 PM EDT Unremarkable portable chest. This report was signed and finalized on 06/26/2025 1:30 PM by Marino Salvador MD. Narrative 06/26/2025 1:30 PM EDT PROCEDURE: XR CHEST 1 VW- HISTORY: Chest Pain Triage Protocol COMPARISON: 06/24/2024 FINDINGS: Portable view of the chest demonstrates the lungs to be grossly clear. There is no evidence of effusion, pneumothorax or other significant pleural disease. The mediastinum is unremarkable. The heart size is normal. Procedure Note Marino Salvador MD - 06/26/2025 PROCEDURE: XR CHEST 1 VW- HISTORY: Chest Pain Triage Protocol COMPARISON: 06/24/2024 FINDINGS: Portable view of the chest demonstrates the lungs to be grossly clear. There is no evidence of effusion, pneumothorax or other significant pleural disease. The mediastinum is unremarkable. The heart size is normal. IMPRESSION: Unremarkable portable chest. This report was signed and finalized on 06/26/2025 1:30 PM by Marino Salvador MD. us Hardy Bryan MD IMG DIAGNOSTIC IMAGIN G ORDERABLES Final Result * CBC Auto Differential (06/26/2025 1:23 PM EDT) WBC 7.02 3.40 - 10.80 10*3/mm3 06/26/2025 1:36 PM EDT [facility] RBC 4.85 3.77 - 5.28 10*6/mm3 06/26/2025 1:36 PM EDT [facility] Hemoglobin 14.8 12.0 - 15.9 g/dL 06/26/2025 1:36 PM EDT [facility] Hematocrit 43.1 34.0 - 46.6 % 06/26/2025 1:36 PM EDT [facility] MCV 88.9 79.0 - 97.0 fL 06/26/2025 1:36 PM EDT [facility] MCH 30.5 26.6 - 33.0 pg 06/26/2025 1:36 PM EDT [facility] MCHC 34.3 31.5 - 35.7 g/dL 06/26/2025 1:36 PM EDT [facility] RDW 12.6 12.3 - 15.4 % 06/26/2025 1:36 PM EDT [facility] RDW-SD 41.2 37.0 - 54.0 fl 06/26/2025 1:36 PM EDT [facility] MPV 9.7 6.0 - 12.0 fL 06/26/2025 1:36 PM EDT [facility] Platelets 412 140 - 450 10*3/mm3 06/26/2025 1:36 PM EDT [facility] Neutrophil % 52.3 42.7 - 76.0 % 06/26/2025 1:36 PM EDT [facility] Lymphocyte % 35.8 19.6 - 45.3 % 06/26/2025 1:36 PM EDT [facility] Monocyte % 10.4 5.0 - 12.0 % 06/26/2025 1:36 PM EDT [facility] Eosinophil % 1.0 0.3 - 6.2 % 06/26/2025 1:36 PM EDT [facility] Basophil % 0.4 0.0 - 1.5 % 06/26/2025 1:36 PM EDT [facility] Immature Grans % 0.1 0.0 - 0.5 % 06/26/2025 1:36 PM EDT [facility] Neutrophils, Absolute 3.67 1.70 - 7.00 10*3/mm3 06/26/2025 1:36 PM EDT [facility] Lymphocytes, Absolute 2.51 0.70 - 3.10 10*3/mm3 06/26/2025 1:36 PM EDT [facility] Monocytes, Absolute 0.73 0.10 - 0.90 10*3/mm3 06/26/2025 1:36 PM EDT [facility] Eosinophils, Absolute 0.07 0.00 - 0.40 10*3/mm3 06/26/2025 1:36 PM EDT [facility] Basophils, Absolute 0.03 0.00 - 0.20 10*3/mm3 06/26/2025 1:36 PM EDT [facility] Immature Grans, Absolute 0.01 0.00 - 0.05 10*3/mm3 06/26/2025 1:36 PM EDT [facility] nRBC 0.0 0.0 - 0.2 /100 WBC 06/26/2025 1:36 PM EDT [facility] Blood Venipuncture / Unknown 06/26/2025 1:23 PM EDT 06/26/2025 1:25 PM EDT us Hardy Bryan MD LAB BLOOD ORDERABLES Final Result [facility]
[address] [place] [address], [place] [phone] * Light Blue Top (06/26/2025 1:23 PM EDT) Extra Tube Hold for add-ons. 06/26/2025 1:30 PM EDT [facility] Comment:Auto resulted Blood Venipuncture / Unknown 06/26/2025 1:23 PM EDT 06/26/2025 1:25 PM EDT us Hardy Bryan MD LAB BLOOD ORDER ONLY Final Result [facility]
[address] [place] [address], [place] [phone] * Gold Top - SST (06/26/2025 1:23 PM EDT) Extra Tube Hold for add-ons. 06/26/2025 1:30 PM EDT [facility] Comment:Auto resulted. Blood Venipuncture / Unknown 06/26/2025 1:23 PM EDT 06/26/2025 1:25 PM EDT us Hardy Bryan MD LAB BLOOD ORDER ONLY Final Result Performing Organization Address [facility]/ZIP Co de Phone Number [facility]
[address] [place] [address], [place] [phone] * Lavender Top (06/26/2025 1:23 PM EDT) Extra Tube hold for add-on 06/26/2025 1:30 PM EDT [facility] Comment:Auto resulted Blood Venipuncture / Unknown 06/26/2025 1:23 PM EDT 06/26/2025 1:25 PM EDT us Hardy Bryan MD LAB BLOOD ORDER ONLY Final Result Performing Organization Address [facility] Co de Phone Number [facility]
[address] [place] [address], [place] [phone] * Green Top (Gel) (06/26/2025 1:23 PM EDT) Extra Tube Hold for add-ons. 06/26/2025 1:30 PM EDT [facility] Comment:Auto resulted. Blood Venipuncture / Unknown 06/26/2025 1:23 PM EDT 06/26/2025 1:25 PM EDT us Hardy Bryan MD LAB BLOOD ORDER ONLY Final Result Performing Organization Address [facility] Co de Phone Number [facility]
[address] [place] [address], [place] [phone] * High Sensitivity Troponin T (06/26/2025 1:23 PM EDT) HS Troponin T <6 <14 ng/L 06/26/2025 1:48 PM EDT [facility] Blood Venipuncture / Unknown 06/26/2025 1:23 PM EDT 06/26/2025 1:25 PM EDT Narrative [facility] - 06/26/2025 1:48 PM EDT High Sensitive Troponin T Reference Range: <14.0 ng/L- Negative Female for AMI <22.0 ng/L- Negative Male for AMI >=14 - Abnormal Female indicating possible myocardial injury. >=22 - Abnormal Male indicating possible myocardial injury. Clinicians would have to utilize clinical acumen, EKG, Troponin, and serial changes to determine if it is an Acute Myocardial Infarction or myocardial injury due to an underlying chronic condition. Hardy Bryan MD LAB BLOOD ORDERABLES Final Result [facility]
[address] [place] [address], * (ABNORMAL) Comprehensive Metabolic Panel (06/26/2025 1:23 PM EDT) [facility] Glucose 174(H) 65 - 99 mg/dL 06/26/2025 1:46 PM EDT [facility] BUN 20.0 6.0 - 20.0 mg/dL 06/26/2025 1:46 PM EDT [facility] Creatinine 0.72 0.57 - 1.00 mg/dL 06/26/2025 1:46 PM EDT [facility] Sodium 131(L) 136 - 145 mmol/L 06/26/2025 1:46 PM EDT [facility] Potassium 4.2 3.5 - 5.2 mmol/L 06/26/2025 1:46 PM EDT [facility] Chloride 95(L) 98 - 107 mmol/L 06/26/2025 1:46 PM EDT [facility] CO2 23.6 22.0 - 29.0 mmol/L 06/26/2025 1:46 PM EDT [facility] Calcium 9.9 8.6 - 10.5 mg/dL 06/26/2025 1:46 PM EDT [facility] Total Protein 7.7 6.0 - 8.5 g/dL 06/26/2025 1:46 PM EDT [facility] Albumin 4.4 3.5 - 5.2 g/dL 06/26/2025 1:46 PM EDT [facility] ALT (SGPT) 32 1 - 33 U/L 06/26/2025 1:46 PM EDT [facility] AST (SGOT) 10 1 - 32 U/L 06/26/2025 1:46 PM EDT [facility] Alkaline Phosphatase 103 39 - 117 U/L 06/26/2025 1:46 PM EDT [facility] Total Bilirubin 0.5 0.0 - 1.2 mg/dL 06/26/2025 1:46 PM EDT [facility] Globulin 3.3 gm/dL 06/26/2025 1:46 PM EDT [facility] A/G Ratio 1.3 g/dL 06/26/2025 1:46 PM T [facility] BUN/Creatinine Ratio 27.8(H) 7.0 - 25.0 06/26/2025 1:46 PM EDT [facility] Anion Gap 12.4 5.0 - 15.0 mmol/L 06/26/2025 1:46 PM EDT [facility] eGFR 102.0 >60.0 mL/min/1.7 3 06/26/2025 1:46 PM T [facility] Blood Venipuncture / Unknown 06/26/2025 1:23 PM EDT 06/26/2025 1:25 PM EDT [facility] - 06/26/2025 1:46 PM EDT GFR Categories in Chronic Kidney Disease (CKD) GFR Category GFR (mL/min/1.73) Interpretation G1 90 or greater Normal or high (1) G2 60-89 Mild decrease (1) G3a 45-59 Mild to moderate decrease G3b 30-44 Moderate to severe decrease G4 15-29 Severe decrease G5 14 or less Kidney failure (1)In the absence of evidence of kidney disease, neither GFR category G1 or G2 fulfill the criteria for CKD. eGFR calculation 2020 CKD-EPI creatinine equation, which does not include race as a factor us Hardy Bryan MD LAB BLOOD ORDERABLES Final Result [facility]
[address] [place] [address], * ECG 12 Lead ED Triage Standing Order; Chest Pain (06/26/2025 1:09 PM EDT) us Hardy Bryan MD ECG ORDERABLES Final Result documented in this encounter Visit Diagnoses Diagnosis Chest pain, unspecified type- Primary Acute nonintractable headache, unspecified headache type documented in this encounter Administered Medications Inactive Administered Medications - up to 3 most recent administrations Medication Order MAR Action Action Date Dose Rate Site aspirin tablet 325 mg 325 mg, Oral, Once, On Sun06/26/25 at 1320, For 1 dose, Based on patient request - if ordered for moderate or severe pain, provider allows for administration of a medication prescribed for a lower pain scale. Do not exceed 4 grams of aspirin in a 24 hr period. If given for pain, use the following pain scale: Mild Pain = Pain Score of 1-3, CPOT 1-2 Moderate Pain = Pain Score of 4-6, CPOT 3-4 Severe Pain = Pain Score of 7-10, CPOT 5-8 Given 06/26/2025 1:31 PM EDT 325 mg diphenhydrAMINE (BENADRYL) injection 25 mg 25 mg, Intravenous, Once, On Sun06/26/25 at 1336, For 1 dose, 25 mg may be given IV push over less than 1 minute. Caution: Look alike/sound alike drug alert. This med may be ordered in other forms and routes. Before giving verify the last time the drug was given by any route/form. Given 06/26/2025 1:32 PM EDT 25 mg ketorolac (TORADOL) injection 15 mg 15 mg, Intravenous, Once, On Sun06/26/25 at 1336, For 1 dose, Based on patient request - if ordered for moderate or severe pain, provider allows for administration of a medication prescribed for a lower pain scale. ([facility]) If given for pain, use the following pain scale: Mild Pain = Pain Score of 1-3, CPOT 1-2 Moderate Pain = Pain Score of 4-6, CPOT 3-4 Severe Pain = Pain Score of 7-10, CPOT 5-8 Given 06/26/2025 1:34 PM EDT 15 mg magnesium sulfate in D5W 1g/100mL (PREMIX) 1 g, Intravenous, Administer over 20 Minutes, Once, On Sun06/26/25 at 1336, For 1 dose New Bag 06/26/2025 1:36 PM EDT 1 g metoclopramide (REGLAN) injection 10 mg 10 mg, Intravenous, Once, On Sun06/26/25 at 1336, For 1 dose, Doses of 10 mg or less can be given IV push undiluted over 1 to 2 minutes Given 06/26/2025 1:35 PM EDT 10 mg sodium chloride 0.9 % flush 10 mL 10 mL, Intravenous, As Needed, Line Care, Starting on Sun06/26/25 at 1304 documented in this encounter Active and Recently Administered Medications Times are shown in EDT. Scheduled Medication Order 06/24/2025 06/25/2025 06/26/2025 aspirin tablet 325 mg (COMPLETED) 325 mg, Oral, Once, On Sun06/26/25 at 1320, For 1 dose, Based on patient request - if ordered for moderate or severe pain, provider allows for administration of a medication prescribed for a lower pain scale. Do not exceed 4 grams of aspirin in a 24 hr period. If given for pain, use the following pain scale: Mild Pain = Pain Score of 1-3, CPOT 1-2 Moderate Pain = Pain Score of 4-6, CPOT 3-4 Severe Pain = Pain Score of 7-10, CPOT 5-8 1331 (Given - Provid er: Nury Dawson RN) diphenhydrAMINE (BENADRYL) injection 25 mg (COMPLETED) 25 mg, Intravenous, Once, On Sun06/26/25 at 1336, For 1 dose, 25 mg may be given IV push over less than 1 minute. Caution: Look alike/sound alike drug alert. This med may be ordered in other forms and routes. Before giving verify the last time the drug was given by any route/form. 1332 (Given - Provid er: Nury Dawson RN) ketorolac (TORADOL) injection 15 mg (COMPLETED) 15 mg, Intravenous, Once, On Sun06/26/25 at 1336, For 1 dose, Based on patient request - if ordered for moderate or severe pain, provider allows for administration of a medication prescribed for a lower pain scale. ([facility]) If given for pain, use the following pain scale: Mild Pain = Pain Score of 1-3, CPOT 1-2 Moderate Pain = Pain Score of 4-6, CPOT 3-4 Severe Pain = Pain Score of 7-10, CPOT 5-8 1334 (Given - Provid er: Nury Dawson RN) magnesium sulfate in D5W 1g/100mL (PREMIX) (COMPLETED) 1 g, Intravenous, Administer over 20 Minutes, Once, On Sun06/26/25 at 1336, For 1 dose 1336 (New Bag - Prov ider: Nury Dawson RN)1414 (Stopped - Provider: Nury Dawson RN) metoclopramide (REGLAN) injection 10 mg (COMPLETED) 10 mg, Intravenous, Once, On Sun06/26/25 at 1336, For 1 dose, Doses of 10 mg or less can be given IV push undiluted over 1 to 2 minutes 1335 (Given - Provid er: Nury Dawson RN) PRN Medication Order 06/24/2025 06/25/2025 06/26/2025 sodium chloride 0.9 % flush 10 mL 10 mL, Intravenous, As Needed, Line Care, Starting on Sun06/26/25 at 1304 documented in this encounter Care Teams Professor Sculpture Relationship Specialty Start Date End Date Laura Cobian [address] [place] [address] PCP - General Nurse Practitioner 11/23/23 documented as of this encounter
--- OUTSIDE RECORDS SUMMARY | 2025-08-20 16:03 | XMS_ITS | Encounter Summary ---
Author Organization [employer] ([place], [place], [place], [place]) Address [address] [place] [address] Care Team Providers Care Laboratory Administrative Director Name Role Phone Unavailable Primary Care Provider Unavailabl e Encounter Details Date Type Department Care Team (Late st Contact Info) Description 08/30/2021 Transcribed Document [facility] [place] [facility] [place] [address] ProviderElena MD [address] [place] [address] [phone] Social History Tobacco Use Types Packs/Day Years [...] Source : Measured Height Entry Format : [place] Height, Feet : 4 ft(Converted to: 122 cm, 48 Inch) Height, Inches : 11 Inch(Converted to: 0 ft 11 Inch, 27.94 cm) Clinical Height : 149.86 cm Weight Source : Standing scale Weight Entry Format : [place] Clinical Dosing Weight : 70.45 kg Weight, Pounds : 155 lb Body Surface Area (BSA) : 1.66 m2 Body Mass Index : 31.4 kg/m2 (HI) [place] Body Weight : 43 kg ISIS RYDER [...] ISIS RYDER RN - 08/30/2021 13:13 EDT [place] Suicide Severity Rating Scale (C-SSRS) CSSRS Past [...] Seth Support Person/Pt Rep Contact Information : [phone] Want Family/Rep/Phys Notified of Admit : No Emergency Contact #1 : Seth Emergency Contact #1 Emergency Contact #1 Relationship : so Emergency Contact #2 : na Emergency Contact #2 Phone Number : na Emergency Contact #2 Relationship : na Chief Complaint : xiomy Information Obtained From : Patient Primary Language : [place] Preferred Communication Mode : Verbal Communication Barrier : None Air Brake Man Needed : No ISIS RYDER RN - [...] Scale Risk Level : 25-45 Medium Risk [place] Fall Interventions : Adequate lighting, Call device [...]
--- OUTSIDE RECORDS SUMMARY | 2025-08-20 16:03 | XMS_ITS | Encounter Summary ---
Author Organization [employer] ([place], [place], [place], [place]) Address [address] [place] [address] Care Team Providers Care Rock Loader Name Role Phone Unavailable Primary Care Provider Unavailabl e Encounter Details Date Type Department Care Team (Late st Contact Info) Description 01/01/2019 Transcribed Document [facility] [place] [facility] [place] [address] ProviderElena MD [address] [place] [id number] Social History Tobacco Use Types Packs/Day Years Used Date Smoking Tobacco: Never Assessed Comments Unknown Sex and Gender Information Value Date Recorded Sex Assigned at Not on file Legal Sex Female 5:06 PM CDT Gender Identity Not on file Sexual Orientation Not on file documented as of this encounter Miscellaneous Notes * Cerner Conversion Note - Historical ProviderMD - 01/01/2019 1:05 PM VISUAL JOURNALIST Electronically signed by Ivana [facility] Conversion Finisher [employer] at 03/12/2023 4:29 PM CDT documented in this encounter Plan of Treatment Not on file documented as of this encounter Visit Diagnoses Not on filedocumented in this encounter
--- OUTSIDE RECORDS SUMMARY | 2025-08-20 16:03 | XMS_ITS | Encounter Summary ---
Author Organization [employer] ([place], [place], [place], [place]) Address [address] [place] [address] Care Team Providers Care Cradle Slide Maker Name Role Phone Unavailable Primary Care Provider Unavailabl e Encounter Details Date Type Department Care Team (Late st Contact Info) Description 01/01/2019 Transcribed Document [facility] [place] [facility] [place] [address] ProviderElena MD [address] [place] [phone] Social History Tobacco Use Types Packs/Day Years Used Date Smoking Tobacco: Never Assessed Comments Unknown Sex and Gender Information Value Date Recorded Sex Assigned at Not on file Legal Sex Female 5:06 PM CDT Gender Identity Not on file Sexual Orientation Not on file documented as of this encounter Miscellaneous Notes * Cerner Conversion Note - Historical ProviderMD - 01/01/2019 11:20 AM JEWEL INSPECTOR ED Triage Entered On: 01/01/2019 11:29 EST Performed On: 01/01/2019 11:24 EST by MARILYN GARCIA, ADMINISTRATION PROFESSIONAL Triage Across the Room Triage Date/Time : 01/01/2019 11:24 EST Chief Complaint : here with c/o chest pain starting just prior to arrival. c/o nausea. no vomiting. also c/o shortness of air. c/ tightness in chest. also c/o headache since this morning. 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 Fever/Chills Last 48 Hours [...] Life Cycle Status: Active Ectopic (SNOMED CT :13511482 ) Name of Problem: Ectopic ; Recorder: MONI YUNG MD-EMR; Confirmation: Confirmed ; Classification: Medical ; Code: [id number] ; Contributor System: PowerChart ; Last Updated: 10/24/2014 8:05 EST ; Life Cycle Date: 10/24/2014 ; Life Cycle Status: Active ; Responsible Provider: MONI YUNG MD-EMR; Vocabulary: SNOMED CT HTN (hypertension) (SNOMED CT :7278250004 ) Name of Problem: HTN (hypertension) ; Recorder: CARINA MELCHOR RN; Confirmation: Confirmed ; Classification: Medical ; Code: [id number] ; Contributor System: PowerChart ; Last Updated: 09/29/2014 14:18 EST ; Life Cycle Date: 09/29/2014 ; Life Cycle Status: Active ; Vocabulary: SNOMED CT Hypoglycemia (SNOMED CT :781874300 ) Name of Problem: Hypoglycemia ; Recorder: Ben Hernandez Rn; Confirmation: Confirmed ; Classification: Medical ; Code: [id number] ; Contributor System: PowerChart ; Last Updated: 10/15/2018 1:50 EST ; Life Cycle Date: 10/15/2018 ; Life Cycle Status: Active ; Vocabulary: SNOMED CT Migraine (SNOMED CT :07144872 ) Name of Problem: Migraine ; Recorder: NICOLE LAMA RN; Confirmation: Confirmed ; Classification: Medical ; Code: [id number] ; Contributor System: PowerChart ; Last Updated: 12/19/2015 0:55 EST ; Life Cycle Date: 12/19/2015 ; Life Cycle Status: Active ; Vocabulary: SNOMED CT Diagnoses(Active) Chest pain Date: 01/01/2019 ; Diagnosis Type: Reason For Visit ; Confirmation: Complaint of ; Clinical Dx: Chest pain ; Classification: Medical ; Clinical Service: Emergency medicine ; Code: PNED ; Probability: 0 ; Diagnosis Code: [id number] Headache Date: 01/01/2019 ; Diagnosis Type: Reason For Visit ; Confirmation: Complaint of ; Clinical Dx: Headache ; Classification: Medical ; Clinical Service: Emergency medicine ; Code: PNED ; Probability: 0 ; Diagnosis Code: [id number] ED Height and Weight Height Source : Stated Height Entry Format : [place] Height, Feet : 4 ft(Converted to: 122 cm, 48 Inch) Height, Inches : 11 Inch(Converted to: 0 ft 11 Inch, 27.94 cm) Clinical Height : 149.86 cm Weight Source, ED : Critical estimated dosing weight Weight Entry Format : [place] Weight, Pounds : 145 lb Clinical Dosing Weight : 65.91 kg Body Surface Area (BSA) : 1.61 m2 Body Mass Index : 29.3 kg/m2 (HI) [place] Body Weight (IBW) : 42.87 kg MARILYN [...]
--- OUTSIDE RECORDS SUMMARY | 2025-08-20 16:03 | XMS_ITS | Encounter Summary ---
Author Organization [employer] ([place], [place], [place], [place]) Address [address] [place] [address] Care Team Providers Care Newsstand Vendor Name Role Phone Unavailable Primary Care Provider Unavailabl e Encounter Details Date Type Department Care Team (Late st Contact Info) Description 05/22/2019 Transcribed Document [facility] [place] [address] ProviderElena MD [address] [place] [address] Social History Tobacco Use Types Packs/Day [...] Brock MD - 05/22/2019 3:21 PM CDT [facility] [address] [place] [address] DONYA MALDONADO :1975 Visit Time:05/22/2019 [...] is currently established with Nia Aguilera at [facility] in [place]. Feel free to contact our Patient Resource Center at [phone] for any future Physician scheduling needs. Follow Up with KEVEN SELLERS When Within 2 to 3 days Where: [address] [facility] [address] [place] [address]- Business (1) Allergies Percocet 5/325 lisinopril sulfADIAZINE (C/O: a swelling~Redness, C/O: a swelling, Redness) Immunizations This Visit No Immunizations Found Medications What How Much When Instructions Next Dose New acetaminophen-hydrocodone ([place] 5 mg-325 mg oral tablet) 1 Tablet(s) [...] ) Urine Bilirubin Dipstick: Negative Urine Specific [place]: 1.015 -- Normal range between ( 1.005 [...] by your health care provider. ??? Take uzol-atd-shehewi and prescription medicines only as told by [...] 01/03/2007 Document Revised: 01/25/2018 Document Reviewed: 01/25/2018 ElseDAX[employer] Interactive Patient Education ?? 2019 [employer] Emergency Awareness and Preventative Care STROKE [...] Assistance with quitting is available by contacting 9-955-ZUZSNOW. This is a free resource providing counseling, support, and referral. Or you may contact your personal physician. [place] Suicide Prevention Lifeline: The National Suicide Prevention [...] was given the opportunity to ask questions. Patient/Fuel Dock Attendant Name: Patient/Fuel Dock Attendant Signature: Relationship to Patient: Clinician/Hospital Fuel Dock Attendant Signature: Please Provide a Telephone Number Where You Can Be Reached: Is it Permissible To Leave a Message? Date: documented in this encounter Plan of Treatment Not on file documented as of this encounter Visit Diagnoses Not on filedocumented in this encounter
--- OUTSIDE RECORDS SUMMARY | 2025-08-20 16:03 | XMS_ITS | Encounter Summary ---
Author Organization [employer] ([place], [place], [place], [place]) Address [address] [place] [address] Care Team Providers Care Laboratory Coordinator Name Role Phone Unavailable Primary Care Provider Unavailabl e Encounter Details Date Type Department Care Team (Late st Contact Info) Description 05/22/2019 Transcribed Document [facility] Family Medicine [facility] [place] [address] ProviderElena MD [address] [place] [address] Social History Tobacco Use Types Packs/Day Years [...] Communication Barrier : None Primary Language : Telugu Any Spiritual/Cultural Needs or Requests : No [...]
--- OUTSIDE RECORDS SUMMARY | 2025-08-20 16:04 | XMS_ITS | Encounter Summary ---
Author Organization [employer] ([place], [place], [place], [place]) Address [address] [place] [address] Care Team Providers Care Electronic Installer Name Role Phone Unavailable Primary Care Provider Unavailabl e Encounter Details Date Type Department Care Team (Late st Contact Info) Description 05/22/2019 Transcribed Document [facility] Family Medicine [facility] [place] [address] ProviderElena MD [address] [place] [address] Social History Tobacco Use Types Packs/Day Years [...] Medical/ Family/ Social History Surgical history: section ([id number]). LEEP ([id number]).. Family history: No family history items have been selected or recorded.. Social history: Social & Psychosocial Habits Alcohol 08/18/2014 Alcohol Use in Last Twelve Months No Employment/School 10/15/2018 Status: Employed Description: [employer] Home/Environment 10/15/2018 Lives with: Children Nutrition/Health 01/01/2019 [...] EDT Height Source Stated Height Entry Format Brown Height/Length, BOTSWANAN (ft) 4 ft Height/Length BOTSWANAN 11 Inch CLINICALHEIGHT 149.86 cm [place] Body Weight 42.87 kg Weight Source, ED Critical estimated dosing weight Weight Entry Format Brown Weight Norwegian lb 150 lb CLINICALWEIGHT 68.18 kg Body [...] Temperature Warm Communication Barrier None Primary Language Norwegian Information Obtained From Patient Smoking Status 5-9 [...] Fall Scale Risk Level 0-24 Low Risk [place] Fall Interventions Adequate lighting, Bed in low position, Call device within reach, Personal items within reach 05/22/2019 13:22 EDT Nurse Collect Order Detail 3.00 05/22/2019 13:22 EDT Nurse Collect Order Detail 3.00 05/22/2019 13:19 EDT Urine Type. U CleanCatch Urine Color Light Yellow Urine Appearance Clear Urine Specific [place] 1.015 Urine pH Dipstick 8.5 HI Urine [...] air Height Source Stated Height Entry Format [place] Height/Length, BOTSWANAN (ft) 4 ft Height/Length BOTSWANAN 11 Inch CLINICALHEIGHT 149.86 cm [place] Body Weight 42.87 kg Weight Source, ED Critical estimated dosing weight Weight Entry Format Brown Weight Norwegian lb 150 lb CLINICALWEIGHT 68.18 kg Body [...] 15:19 EDT, Discharge to: Home. Prescriptions: Prescription [facility]: [facility] 5 mg-325 mg oral tablet (Prescribe): 1 Tab, Oral, Q4H, for 2 Day(s), PRN: for pain, 12 Tab, 0 Refill(s). Patient was given the following educational materials: Flank Pain, Adult. Limitations: Limited activity. Follow up with: PATIENT RESOURCE CENTER Within As needed Patient stated she is currently established with Nia Aguilera at [employer] in [place]. Feel free to contact our Patient Resource Center at [phone] for any future Physician scheduling needs. ; KEVEN SELLERS Within 2 to 3 days. Counseled: Patient, Regarding diagnosis, Regarding diagnostic results, Regarding treatment plan, Regarding prescription, Patient indicated understanding of instructions. documented in this encounter Plan of Treatment Not on file documented as of this encounter Visit Diagnoses Not on filedocumented in this encounter
--- OUTSIDE RECORDS SUMMARY | 2025-08-20 16:04 | XMS_ITS | Encounter Summary ---
Author Organization [employer] ([place], [place], [place], [place]) Address [address] [place] [address] Care Team Providers Care Pizza Hut Assistant Name Role Phone Unavailable Primary Care Provider Unavailabl e Encounter Details Date Type Department Care Team (Late st Contact Info) Description 05/22/2019 Transcribed Document [facility] Family Medicine [facility] [address] ProviderElena MD [address] [place] [address] Social History Tobacco Use Types Packs/Day Years [...] : 3 - Urgent Tracking Group : [facility] ED Julia Leon RN - 05/22/2019 [...] Life Cycle Status: Active Ectopic (SNOMED CT :28404490 ) Name of Problem: Ectopic ; Recorder: MONI YUNG MD-EMR; Confirmation: Confirmed ; Classification: Medical ; Code: [id number] ; Contributor System: PowerChart ; Last Updated: 10/24/2014 8:05 EST ; Life Cycle Date: 10/24/2014 ; Life Cycle Status: Active ; Responsible Provider: MONI YUNG MD-EMR; Vocabulary: SNOMED CT HTN (hypertension) (SNOMED CT :2929874241 ) Name of Problem: HTN (hypertension) ; Recorder: CARINA MELCHOR RN; Confirmation: Confirmed ; Classification: Medical ; Code: [id number] ; Contributor System: GreenRay SolarChart ; Last Updated: 09/29/2014 14:18 EST ; Life Cycle Date: 09/29/2014 ; Life Cycle Status: Active ; Vocabulary: SNOMED CT Hypoglycemia (SNOMED CT :796945388 ) Name of Problem: Hypoglycemia ; Recorder: Ben Hernandez Rn; Confirmation: Confirmed ; Classification: Medical ; Code: [id number] ; Contributor System: PowerChart ; Last Updated: 10/15/2018 1:50 EST ; Life Cycle Date: 10/15/2018 ; Life Cycle Status: Active ; Vocabulary: SNOMED CT Migraine (SNOMED CT :81065110 ) Name of Problem: Migraine ; Recorder: NICOLE LAMA RN; Confirmation: Confirmed ; Classification: Medical ; Code: 58647059 ; Contributor System: PowerChart ; Last Updated: 12/19/2015 0:55 EST ; Life Cycle Date: 12/19/2015 ; Life Cycle Status: Active ; Vocabulary: SNOMED CT Diagnoses(Active) Flank pain Date: 05/22/2019 ; Diagnosis Type: Reason For Visit ; Confirmation: Complaint of ; Clinical Dx: Flank pain ; Classification: Medical ; Clinical Service: Emergency medicine ; Code: PNED ; Probability: 0 ; Diagnosis Code: [id number] ED Height and Weight Height Source : Stated Height Entry Format : [place] Height, Feet : 4 ft(Converted to: 122 cm, 48 Inch) Height, Inches : 11 Inch(Converted to: 0 ft 11 Inch, 27.94 cm) Clinical Height : 149.86 cm Weight Source, ED : Critical estimated dosing weight Weight Entry Format : [place] Weight, Pounds : 150 lb Clinical Dosing Weight : 68.18 kg Body Surface Area (BSA) : 1.63 m2 Body Mass Index : 30.4 kg/m2 (HI) [place] Body Weight (IBW) : 42.87 kg Julia Randolph RN - 05/22/2019 13:13 EDT documented in this encounter Plan of Treatment Not on file documented as of this encounter Visit Diagnoses Not on filedocumented in this encounter
--- OUTSIDE RECORDS SUMMARY | 2025-08-20 16:04 | XMS_ITS | Encounter Summary ---
Author Organization [employer] ([place], [place], [place], [place]) Address [address] [place] [address] Care Team Providers Care Envelope Maker Name Role Phone Unavailable Primary Care Provider Unavailabl e Encounter Details Date Type Department Care Team (Late st Contact Info) Description 05/22/2019 Transcribed Document [facility] [place] [facility] [place] [address] ProviderElena MD [address] [place] [address] [id number] Social History Tobacco Use Types Packs/Day Years [...] 3:20 PM CDT Electronically signed by Ivana [facility] Conversion Director Of Gift Planning Cerner at 03/12/2023 4:21 PM CDT documented in this encounter Plan of Treatment Not on file documented as of this encounter Visit Diagnoses Not on filedocumented in this encounter
--- OUTSIDE RECORDS SUMMARY | 2025-08-20 16:04 | XMS_ITS | Encounter Summary ---
Author Organization [employer] ([place], [place], [place], [place]) Address [address] [place] [address] Care Team Providers Care Nurse Clinician Name Role Phone Unavailable Primary Care Provider Unavailabl e Encounter Details Date Type Department Care Team (Late st Contact Info) Description 05/22/[address] [facility] Family [place] [facility] [place] [address] ProviderElena MD [address] [place] [address] Social History Tobacco Use Types Packs/Day Years [...] - 05/22/2019 15:37 EDT Electronically signed by [facility] Conversion Line Helper Cerner at 03/12/2023 4:22 PM CDT documented in this encounter Plan of Treatment Not on file documented as of this encounter Visit Diagnoses Not on filedocumented in this encounter
--- OUTSIDE RECORDS SUMMARY | 2025-08-20 16:06 | XMS_ITS | Patient Health Record ---
Author Organization [facility] Address [address] [facility] [address] [place] [address] Care Team Providers Care Explosive Operator Grenade Name Role Phone Shana Min [phone] Allergies Allergen (clinical drug ingredient) Drug/Non Drug [...] Coverage Start Date Coverage End Date Aetna [facility] [id number] [place] [phone] [id number] PhaniDonya Self - patient is the insured 2 Medical (General) History Medical History History ICD Code Recurrent miscarriages PID Abnormal paps Breast pain Yeast infections High blood pressure Acid reflux UTIs Anxiety Depression Moderate dysplasia Surgical History Surgery Date(Month/Year) C/S x 1, left hand sx, D&C x 4 for MAB, LEEP Hospitalization History Reason Date(Month/Year)
--- OUTSIDE RECORDS SUMMARY | 2025-08-20 16:06 | XMS_ITS | Encounter Summary ---
Author Organization [employer] ([place], [place], [place], [place]) Address [address] [place] [address] Care Team Providers Care Building Drafter Name Role Phone Unavailable Primary Care Provider Unavailabl e Encounter Details Date Type Department Care Team (Late st Contact Info) Description 01/01/2019 Transcribed Document [facility] [place] [address] ProviderElena MD [address] [place] [address] Social History Tobacco Use Types Packs/Day Years Used Date Smoking Tobacco: Never Assessed Comments Unknown Sex and Gender Information Value Date Recorded Sex Assigned at Not on file Legal Sex Female 5:06 PM CDT Gender Identity Not on file Sexual Orientation Not on file documented as of this encounter Miscellaneous Notes * Cerner Conversion Note - Historical ProviderMD - 01/01/2019 11:20 AM PLUMBING ASSEMBLER ED Assessment Entered On: 01/01/2019 12:21 EST [...] (Last Updated: 06/08/2017 00:36:58 EDT by Marce Clazada, RN) Alcohol: Use in Last 12 Months: [...] Rhythm : Regular Chest Pain : Yes JAIN CATALAN RN - 01/01/2019 12:17 EST Electronically signed by Ivana [facility] Conversion Dry Talc Racker Cerner at 03/12/2023 4:22 PM CDT documented in this encounter Plan of Treatment Not on file documented as of this encounter Visit Diagnoses Not on filedocumented in this encounter
--- OUTSIDE RECORDS SUMMARY | 2025-08-20 16:06 | XMS_ITS | Encounter Summary ---
Author Organization [employer] ([place], [place], [place], [place]) Address [address] [place] [address] Care Team Providers Care Hotel Valet Attendant Name Role Phone Unavailable Primary Care Provider Unavailabl e Encounter Details Date Type Department Care Team (Late st Contact Info) Description 01/01/2019 Transcribed Document [facility] Family [place] [address] ProviderElena MD [address] [place] [address] [phone] Social History Tobacco Use Types Packs/Day Years Used Date Smoking Tobacco: Never Assessed Comments Unknown Sex and Gender Information Value Date Recorded Sex Assigned at Not on file Legal Sex Female 5:06 PM CDT Gender Identity Not on file Sexual Orientation Not on file documented as of this encounter Miscellaneous Notes * Cerner Conversion Note - Historical ProviderMD - 01/01/2019 6:25 PM WEIGHTER CR Chest 1 Vw Portable Ordered: 01/01/2019 Modified Reason for Exam: pain 01/01/2019 13:12 01/01/2019 18:25 (HILARY ROBERTO PA-C) Reviewed by Provider, No further action required x1 Electronically signed by Ivana [facility] Conversion Mobility Architect Manager Cerner at 03/12/2023 4:09 PM CDT documented in this encounter Plan of Treatment Not on file documented as of this encounter Visit Diagnoses Not on filedocumented in this encounter
--- OUTSIDE RECORDS SUMMARY | 2025-08-20 16:06 | XMS_ITS | Encounter Summary ---
Author Organization [employer] ([place], [place], [place], [place]) Address [address] [place] [address] Care Team Providers Care Supervisor Stitching Department Name Role Phone Unavailable Primary Care Provider Unavailabl e Encounter Details Date Type Department Care Team (Late st Contact Info) Description 01/01/2019 Transcribed Document [facility] [place] [facility] [place] [address] ProviderElena MD [address] [place] [phone] Social History Tobacco Use Types Packs/Day Years Used Date Smoking Tobacco: Never Assessed Comments Unknown Sex and Gender Information Value Date Recorded Sex Assigned at Not on file Legal Sex Female 5:06 PM CDT Gender Identity Not on file Sexual Orientation Not on file documented as of this encounter Miscellaneous Notes * Cerner Conversion Note - Historical ProviderMD - 01/01/2019 2:13 PM CREDIT UNION EXAMINER [facility] [address] [place] [address] Patient Information Name: DONYA MALDONADO Age: 43 Years Date of : 1975 Arrival Time: 01/01/2019 11:20:00 Diagnosis Chest pain Primary Care Physician: KEVEN SELLERS, ELECTRICIAN SHIP-INT Provider Information Primary Provider: NAE GREEN MD Secondary Provider: DONYA MALDONADO has been given the following list of patient education materials, prescriptions and follow-up instructions: Follow-up Instructions: With: Address: When: KEVEN SELLERS [address] [facility] [address] [place] [id number] Business (1) Within 2 to 3 days [...] you start to feel better. ??? Take plxw-kfn-unaahig and prescription medicines only as told by [...] 08/22/2006 Document Revised: 08/06/2017 Document Reviewed: 08/06/2017 [employer] Interactive Patient Education ? 2017 [employer] Allergies: Percocet 5/325; sulfADIAZINE; lisinopril Medication Information: Prescription Display acetaminophen-hydrocodone ([place] 7.5 mg-325 mg oral tablet) 1 Tab, [...] verify that DONYA MALDONADO was seen at [facility] Emergency Department on ,01/01/2019 14:13:41. This [...] along the way. As a healthcare provider, [facility] recommends that you stop smoking. Assistance with quitting is available by contacting 3-390-LMFY-NOW. This is a free resource providing counseling, [...] Electronic Communications Privacy Act 18 U.S.C. ???Sections 7783-8194,?? and contain information intended for the specified [...] Be sure to sign up for the [facility] patient portal, which gives you 18/06 access to your medical information ??? including these discharge instructions ??? using your computer, smartphone, or tablet. Just go to [employer] to get started. Questions? Call . Acknowledgment [...]
--- OUTSIDE RECORDS SUMMARY | 2025-08-20 16:06 | XMS_ITS | Encounter Summary ---
Author Organization [employer] ([place], [place], [place], [place]) Address [address] [place] [address] Care Team Providers Care Mushroom Sorter Grader Name Role Phone Unavailable Primary Care Provider Unavailabl e Encounter Details Date Type Department Care Team (Late st Contact Info) Description 01/01/2019 Transcribed Document [facility] [facility] [place] [address] ProviderElena MD [address] [place] [address] Social History Tobacco Use Types Packs/Day Years Used Date Smoking Tobacco: Never Assessed Comments Unknown Sex and Gender Information Value Date Recorded Sex Assigned at Not on file Legal Sex Female 5:06 PM CDT Gender Identity Not on file Sexual Orientation Not on file documented as of this encounter Miscellaneous Notes * Cerner Conversion Note - Historical ProviderMD - 01/01/2019 11:40 AM TECHNICAL SALES ADVISOR Patient: DONYA MALDONADO Age: 43 years Sex: [...] Medical/ Family/ Social History Surgical history: section ([id number]). LEEP ([id number]).. Family history: No family history items have been selected or recorded.. Social history: Social & Psychosocial Habits Alcohol 08/18/2014 Alcohol Use in Last Twelve Months No Employment/School 10/15/2018 Status: Employed Description: [employer] Home/Environment 10/15/2018 Lives with: Children Substance Abuse [...] EST Height Source Stated Height Entry Format [place] Height/Length, ERITREAN (ft) 4 ft Height/Length ERITREAN 11 Inch CLINICALHEIGHT 149.86 cm [place] Body Weight 42.87 kg Weight Source, ED Critical estimated dosing weight Weight Entry Format [place] Weight Tanzanian lb 145 lb CLINICALWEIGHT 65.91 kg Body [...] rhythm, No ST changes, no ectopy, normal UT & QRS intervals, EP Interp. monitor car operator: Rate 70, normal sinus rhythm. Results review: [...] Temperature Warm Communication Barrier None Primary Language Tanzanian Information Obtained From Patient Smoking Status 5-9 [...] air Height Source Stated Height Entry Format [place] Height/Length, ERITREAN (ft) 4 ft Height/Length ERITREAN 11 Inch CLINICALHEIGHT 149.86 cm [place] Body Weight 42.87 kg Weight Source, ED Critical estimated dosing weight Weight Entry Format [place] Weight Tanz[place] lb 145 lb CLINICALWEIGHT 65.91 kg Body [...] Fall Scale Risk Level 0-24 Low Risk [place] Fall Interventions Adequate lighting, Bed in low [...] 13:03 EST, Discharge to: Home. Prescriptions: Prescription Electrical Project Manager Pharmacy: [facility] 7.5 mg-325 mg oral tablet (Prescribe): 1 [...]
--- OUTSIDE RECORDS SUMMARY | 2025-08-20 16:06 | XMS_ITS | Encounter Summary ---
Author Organization [employer] ([place], [place], [place], [place]) Address [address] [place] [address] Care Team Providers Care Shake Feeder Name Role Phone Unavailable Primary Care Provider Unavailabl e Encounter Details Date Type Department Care Team (Late st Contact Info) Description 01/01/2019 Transcribed Document [facility] [place] [facility] [place] [address] ProviderElena MD [address] [place] [address] Social History Tobacco Use Types Packs/Day Years Used Date Smoking Tobacco: Never Assessed Comments Unknown Sex and Gender Information Value Date Recorded Sex Assigned at Not on file Legal Sex Female 5:06 PM CDT Gender Identity Not on file Sexual Orientation Not on file documented as of this encounter Miscellaneous Notes * Cerner Conversion Note - Historical ProviderMD - 01/01/2019 2:13 PM TRANSFER OPERATOR [facility] [address] [place] [address] PERSON INFORMATION Name DONYA MALDONADO Age 43 Years 1975 Sex Female Language Amharic PCP KEVEN SELLERS NP-INT Marital Status Single Med Service Emergency Medicine Acct# Arrival 01/01/2019 11:20:00 Visit Reason Headache; Chest pain; CP,SOA Acuity 2 - Emergent LOS 000 02:53 Depart Date: 01/01/19 01:42 PM Address: [address] [place] [phone] Comment: PROVIDER INFORMATION Provider Role Assigned Unassigned ROBERT GREEN MD ED Physician 01/01/2019 11:23:46 JANI CATALAN, WEIGHBRIDGE OPERATOR Nurse 01/01/2019 11:56:40 DIAGNOSIS Chest pain PHYS [...] 5/325; sulfADIAZINE; lisinopril Medications: Prescription Display acetaminophen-hydrocodone ([place] 7.5 mg-325 mg oral tablet) 1 Tab, Oral, Tab, Q4H, PRN as needed for pain, X 2 Day(s), # 12 Tab, 0 Refill(s) Comment: DISCHARGE INFORMATION Discharge Disposition: Home Discharge Location: PATIENT EDUCATION INFORMATION Instructions: Nonspecific Chest Pain Follow up: With: Address: When: KEVEN SELLERS [address] [place], [place] [phone] [facility] ([employer] Within 2 to 3 days Comment: documented in this encounter Plan of Treatment Not on file documented as of this encounter Visit Diagnoses Not on filedocumented in this encounter
--- OUTSIDE RECORDS SUMMARY | 2025-08-20 16:06 | XMS_ITS | Encounter Summary ---
Author Organization [employer] ([place], [place], [place], [place]) Address [address] [place] [address] Care Team Providers Care Grain Trimmer Name Role Phone Unavailable Primary Care Provider Unavailabl e Encounter Details Date Type Department Care Team (Late st Contact Info) Description 01/01/2019 Transcribed Document [facility] [place] [facility] [place] [address] ProviderElena MD [address] [place] [address] Social History Tobacco Use Types Packs/Day Years Used Date Smoking Tobacco: Never Assessed Comments Unknown Sex and Gender Information Value Date Recorded Sex Assigned at Not on file Legal Sex Female 5:06 PM CDT Gender Identity Not on file Sexual Orientation Not on file documented as of this encounter Miscellaneous Notes * Cerner Conversion Note - Historical ProviderMD - 01/01/2019 11:38 AM A CLASS LINEMAN Vital Signs ED Entered On: 01/01/2019 12:32 [...] 01/01/2019 12:31 EST Electronically signed by Ivana [facility] Conversion Email Marketing Specialist Cerner at 03/12/2023 4:18 PM CDT documented in this encounter Plan of Treatment Not on file documented as of this encounter Visit Diagnoses Not on filedocumented in this encounter
--- OUTSIDE RECORDS SUMMARY | 2025-08-20 16:06 | XMS_ITS | Encounter Summary ---
Author Organization [employer] ([place], [place], [place], [place]) Address [address] [place] [address] Care Team Providers Care Burrer Machine Name Role Phone Unavailable Primary Care Provider Unavailabl e Encounter Details Date Type Department Care Team (Late st Contact Info) Description 01/01/2019 Transcribed Document [facility] Family Medicine [facility] [place] [address] ProviderElena MD [address] [place] [id number] Social History Tobacco Use Types Packs/Day Years Used Date Smoking Tobacco: Never Assessed Comments Unknown Sex and Gender Information Value Date Recorded Sex Assigned at Not on file Legal Sex Female 5:06 PM CDT Gender Identity Not on file Sexual Orientation Not on file documented as of this encounter Miscellaneous Notes * Cerner Conversion Note - Historical ProviderMD - 01/01/2019 1:42 PM CONTINUING EDUCATION [facility] ED Discharge Entered On: 01/01/2019 14:13 EST Performed On: 01/01/2019 13:42 EST by AMRYBEL MORAN RN Discharge Process Patient Disposition : [...] 01/01/2019 14:12 EST Electronically signed by Ivana [facility] Conversion Cartridge Belt Puncher Cerner at 03/12/2023 4:13 PM CDT documented in this encounter Plan of Treatment Not on file documented as of this encounter Visit Diagnoses Not on filedocumented in this encounter
--- OUTSIDE RECORDS SUMMARY | 2025-08-20 16:07 | XMS_ITS | Encounter Summary ---
Author Organization [facility] Address [address] [place] [address] Care Team Providers Care Plodder Operator Name Role Phone Michael Sinclair NP Primary Care Provider [phone] Encounter Details Date Type Department Care Team ([facility] st Contact Info) Description 01/24/2023 Telephone [facility] [address] [place] [address] Maren Napier MD [address], [address] [place], [place] [id number] Social History Tobacco Use Types Packs/Day Years [...] 01/24/2023 2:51 PM EST Call back number: [phone] Person Calling (patient/caregiver/facility etc): Patient Patient's provider: [...] on filedocumented in this encounter Care Teams Plodder Operator Relationship Specialty Start Date End Date Michael Sinclair NP [address] [place] [id number] PCP - General 12/11/22 documented as of this encounter
--- OUTSIDE RECORDS SUMMARY | 2025-08-20 16:07 | XMS_ITS | Clinical Summary ---
[facility] Address [address] [place] [address] Phone Care Team Providers Care Foundry Finisher Name Role Phone Unavailable Primary Care Provider [...] MD Impressions 01/09/2024 8:21 AM EST Negative ([id number]) ~ RECOMMENDATION: Routine screening mammogram in 1 [...] the next mammogram, in accordance with the [employer] and the Society of Breast Imaging recommendations. Narrative 01/09/2024 8:21 AM EST Procedure:MM MAMMO DIGITAL ADRIANNE SCREEN BILAT ~ Reason for exam: screening, asymptomatic. Z12.31-Encounter for screening mammogram for malignant neoplasm of [id number] ~ MM MAMMO DIGITAL ADRIANNE SCREEN BILAT [...] for screening mammogram for malignant neoplasm of [id number] ~ MM MAMMO DIGITAL ADRIANNE SCREEN BILAT Bilateral CC and MLO view(s) were taken. There are scattered fibroglandular densities. Prior study comparison: Compared with prior studies the most recentbeing none No mammographic evidence of malignancy. ~ ADDENDUM: ~ IMPRESSION: Negative ([id number]) ~ RECOMMENDATION: Routine screening mammogram in 1 [...] the next mammogram, in accordance with the [employer] and the Society of Breast Imaging recommendations. us Not In [facility] Provider IMG MAMMOGRAPHY ORDERABLES Edited Result - Final from Last 3 Months or Most Recently Relevant to Health Maintenance Insurance [id number]
--- OUTSIDE RECORDS SUMMARY | 2025-08-20 16:07 | XMS_ITS | Clinical Summary ---
Author Organization [facility] Address [address] [place] [address] Care Team Providers Care Manufacturing Machine Operator Name Role Phone Michael Sinclair NP Primary Care Provider [phone] Allergies Active Allergy Reactions Criticality Noted Date [...] this topic Meningococcal Vaccine Aged Out No dlaia ankit eligible based on patient's age to complete this topic Rotavirus Vaccines Aged Out No longer eligible based on patient's age to complete this topic Care Teams Manufacturing Machine Operator Relationship Specialty Start Date End Date Michael Sinclair NP [address] [place] [address] PCP - General 12/11/22
--- OUTSIDE RECORDS SUMMARY | 2025-08-20 16:07 | XMS_ITS | Clinical Summary ---
Author Organization [facility] Address [address] [place] [address] Phone Care Team Providers Care Appeals Rn Name Role Phone Kallie Quinn APRN Primary Care Physician [phone] Conditions or Problems Problem Name Problem Code [...] [BMI] 29.0-29.9, adult Carpal tunnel syndrome, right 06207375 (SNOMED CT) 01/28 Active 01/28 Nidia Theodore MD Carpal tunnel syndrome Sore throat (acute) 976160395 (SNOMED CT) 01/28 Active 01/28 Nidia Theodore MD Pain in throat UTI, acute 093271477 (SNOMED CT) 01/28 Active 01/28 Nidia Theodore MD Acute urinary tract infection Body mass index (BMI) 29.0-29.9; adult Z68.29 (ICD-10-CM ) 12/22 Removed 12/22 Kallie Quinn APRN Body mass index [BMI] 29.0-29.9, adult Irregular menses 21372146 (SNOMED CT) 12/22 Active 12/22 Kallie [place] BRENT Irregular periods Counseling for nutrition Z71.3 (ICD-10-CM ) 12/22 Inactive 12/22 Kallie Quinn BRENT Dietary counseling and surveillance Body mass index (BMI) 31.0-31.9; adult Z68.31 (ICD-10-CM ) 01/15 Correction 01/20 Kallie Quinn APRN Body mass index [BMI] 31.0-31.9, adult Vaginal discharge 598637385 (SNOMED CT) 12/22 Active 12[facility]22 [facility] RLQ pain 993721123 (SNOMED CT) 12/22 Active 12/22 Kallie Quinn BRENT Right lower quadrant pain Body mass index (BMI) 31.0-31.9; adult Z68.31 (ICD-10-CM ) 01/15 Removed 01/20 Jerrica Enamorado MD Body mass index [BMI] 31.0-31.9, adult Body mass index (BMI) 31.0-31.9; adult Z68.31 (ICD-10-CM ) 01/09 Correction 01/09 Jerrica Enamorado MD Body mass index [BMI] 31.0-31.9, adult Blurred vision 467242451 (SNOMED CT) 01/15 Active 01/15 Jerrica Enamorado [...] mass index [BMI] 30.0-30.9, adult Near syncope 176530325 (SNOMED CT) 01/02 Inactive 01/07 Jerrica Enamorado MD Near syncope Hypoglycemi a NOS 830834751 (SNOMED CT) 03/15 Resolved 03/15 Jerrica Enamorado MD Hypoglycemia Low back pain, acute 196925899 (SNOMED CT) 12/27 Resolved 12/27 Jerrica Enamorado MD Acute low back pain Influenza 4880779 (SNOMED CT) 12/01 Resolved 12/01 Jerrica Enamorado MD Influenza Cough 59841051 (SNOMED CT) 12/01 Resolved 12/01 Jerrica Enamorado MD Cough Diverticulo sis 193607428 (SNOMED CT) 12/25 Active 12/25 Kallie Quinn APRN Diverticular disease Body mass index (BMI) 30.0-30.9; adult Z68.30 (ICD-10-CM ) 12/09 Removed 12/09 Kallie Quinn APRN Body mass index [BMI] 30.0-30.9, adult Body mass index (BMI) 29.0-29.9; adult Z68.29 (ICD-10-CM ) 12/01 Correction 12/01 [facility] RAILWAYS ASSISTANT Body mass index [BMI] 29.0-29.9, adult Hematuria 34924348 (SNOMED CT) 12/09 Active 12/09 [facility] RAILWAYS ASSISTANT Blood in urine Body mass index (BMI) 29.0-29.9; adult Z68.29 (ICD-10-CM ) 12/01 Removed 12/01 [facility] RAILWAYS ASSISTANT Body mass index [BMI] 29.0-29.9, adult Body mass index (BMI) 28.0-28.9; adult Z68.28 (ICD-10-CM ) 03/05 Correction 03/07 [facility] Body mass index [BMI] 28.0-28.9, adult GERD 328941265 (SNOMED CT) 12/01 Active 12/01 [facility] RAILWAYS ASSISTANT Gastroesophage al reflux disease Cough 63413560 (SNOMED CT) 12/01 Removed 12/01 [facility] RAILWAYS ASSISTANT Cough Influenza 3097044 (SNOMED CT) 12/01 Removed 12/01 [facility] RAILWAYS ASSISTANT Influenza Body mass index (BMI) 28.0-28.9; adult Z68.28 (ICD-10-CM ) 03/05 Removed 03/07 Nia Curtsinger RAILWAYS ASSISTANT Body mass index [BMI] 28.0-28.9, adult Bunion, right foot M21.611 (ICD-10-CM ) 03/05 Active 03/05 Nia Curtsinger RAILWAYS ASSISTANT Bunion of right foot Flu vaccine 72563700 (SNOMED CT) 12/27 Inactive 12/28 Nai Curtsinger RAILWAYS ASSISTANT Administration of influenza vaccine Low back pain, acute 308282886 (SNOMED CT) 12/27 Removed 12/27 Nia Curtsinger RAILWAYS ASSISTANT Acute low back pain Urinary frequency 445021552 (SNOMED CT) 12/27 Inactive 12/27 Nia Curtsinger RAILWAYS ASSISTANT Increased frequency of urination SCREENING FOR THYROID DISORDER 376746603 (SNOMED CT) 12/27 Inactive 12/27 Nia Curtsinger RAILWAYS ASSISTANT Thyroid disorder screening Screening for lipid disorder 145165997 (SNOMED CT) 12/27 Inactive 12/27 Nia Curtsinger RAILWAYS ASSISTANT Procedure carried out on subject Urinary frequency 028875417 (SNOMED CT) 07/18 Inactive 07/18 Nia Curtsinger RAILWAYS ASSISTANT Increased frequency of urination Leg pain, left 498745812 (SNOMED CT) 07/04 Resolved 07/04 Nia Curtsinger RAILWAYS ASSISTANT Pain in left lower limb Edema of face-- ANGIOEDEMA D/T ILSA INHIBITOR 532690562 (SNOMED CT) 07/11 Resolved 07/11 Nia Curtsinger RAILWAYS ASSISTANT Edema of face Edema of face-- ANGIOEDEMA D/T ILSA INHIBITOR 722201467 (SNOMED CT) 07/11 Removed 07/11 Nia Curtsinger RAILWAYS ASSISTANT Edema of face Perforated tympanic membrane 67501870 (SNOMED CT) 05/16 Resolved 05/16 Nia Curtsinger RAILWAYS ASSISTANT Perforation of tympanic membrane Leg pain, left 794907483 (SNOMED CT) 07/04 Removed 07/04 Pinky Reyes MD Pain in left lower limb Perforated tympanic membrane 83907848 (SNOMED CT) 05/16 Removed 05/16 Nia Curtsinger RAILWAYS ASSISTANT Perforation of tympanic membrane Temporal arteritis, LEFT 396997722 (SNOMED CT) 05/09 Inactive 05/09 Nia Curtsinger RAILWAYS ASSISTANT Temporal arteritis Migraine headache 39983641 (SNOMED CT) 05/16 Active 05/16 Nia Curtsinger RAILWAYS ASSISTANT Migraine Sinusitis, acute maxillary 02083438 (SNOMED CT) 05/16 Inactive 05/16 Nia Curtsinger RAILWAYS ASSISTANT Acute maxillary sinusitis Temporal arteritis, LEFT 229532393 (SNOMED CT) 05/09 Removed 05/09 Nia Curtsinger RAILWAYS ASSISTANT Temporal arteritis Anemia, iron deficiency 13788133 (SNOMED CT) 03/17 Active 03/17 Debra Taylor RAILWAYS ASSISTANT Iron deficiency anemia Prediabetes 1099193 (SNOMED CT) 03/15 Active 03/15 Debra Taylor RAILWAYS ASSISTANT Impaired glucose tolerance Hypoglycemi a NOS 735354995 (SNOMED CT) 03/15 Removed 03/15 Debra Taylor RAILWAYS ASSISTANT Hypoglycemia Headache, cluster 115641891 (SNOMED CT) 12/16 Resolved 12/20 Debra Taylor RAILWAYS ASSISTANT Cluster headache Cluster headache 696839014 (SNOMED CT) 12/16 Resolved 12/16 Debra Taylor RAILWAYS ASSISTANT Cluster headache Dysfunction al uterine bleeding 81180803 (SNOMED CT) 12/30 Active 12/30 Debra Taylor RAILWAYS ASSISTANT Dysfunctional uterine bleeding Abnormal pap smear 966247610 (SNOMED CT) 02/05 Resolved 02/05 Debra Taylor RAILWAYS ASSISTANT Abnormal cytology findings Cardiac arrhythmia, intermitten t 61340517 (SNOMED CT) Resolved Debra Mildred RAILWAYS ASSISTANT Conduction disorder of the heart Leg pain, left 86854315 (SNOMED CT) Resolved Debra Taylor RAILWAYS ASSISTANT Pain in lower limb Allergic rhinitis, seasonal 643169775 (SNOMED CT) Resolved Debra Mildred RAILWAYS ASSISTANT Seasonal allergic rhinitis Tension headache 566490734 (SNOMED CT) Active Debra Taylor RAILWAYS ASSISTANT Tension-type headache Allergic rhinitis, seasonal 649824132 (SNOMED CT) Removed Debra Taylor RAILWAYS ASSISTANT Seasonal allergic rhinitis Leg pain, left 96372938 (SNOMED CT) Removed Debra Taylor RAILWAYS ASSISTANT Pain in lower limb Vitamin D deficiency 38620938 (SNOMED CT) Active Debra Taylor RAILWAYS ASSISTANT Vitamin D deficiency Cardiac arrhythmia, intermitten t 36027404 (SNOMED CT) Removed Debra Mildred RAILWAYS ASSISTANT Conduction disorder of the heart [place] spotted fever SUSPECTED 526613914 (SNOMED CT) 03/19 Inactive 03/19 Debra Taylor RAILWAYS ASSISTANT [place] spotted fever Dermatitis 286551494 (SNOMED CT) 03/19 Inactive 03/19 Debra Taylor RAILWAYS ASSISTANT Dermatitis Problem excluded fro m report: Dermatitis 031745969 (SNOMED CT) 03/19 Removed 03/19 Debra Mildred RAILWAYS ASSISTANT Dermatitis Dysfunction al uterine bleeding 35104986 (SNOMED CT) 12/30 Resolved 12/30 Debra Taylor RAILWAYS ASSISTANT Dysfunctional uterine bleeding Nipple discharge 01773708 (SNOMED CT) 12/30 Resolved 12/30 Debra Mildred RAILWAYS ASSISTANT Discharge from nipple Nipple discharge 08150077 (SNOMED CT) 12/30 Resolved 12/30 Debra Taylor RAILWAYS ASSISTANT Discharge from nipple Hyperlipide bunny 75938001 (SNOMED CT) Resolved 12/16 Debra Taylor RAILWAYS ASSISTANT Hyperlipidemia Shoulder pain, left 719.41 (ICD-9-CM) 12/16 Resolved 12/16 Debra Taylor RAILWAYS ASSISTANT Pain in joint involving shoulder region Leg pain, left 93542484 (SNOMED CT) 12/16 Resolved 12/16 Debra Mildred RAILWAYS ASSISTANT Pain in lower limb Sciatica, left 79054462 (SNOMED CT) 12/16 Resolved 12/16 Debra Mildred RAILWAYS ASSISTANT Sciatica Gastric ulcer, hx of 023103956 (SNOMED CT) 12/16 Resolved 12/16 Debra Taylor RAILWAYS ASSISTANT H/O: gastric ulcer Calculus, kidney 73856383 (SNOMED CT) 12/16 Resolved 12/16 Debra Taylor RAILWAYS ASSISTANT Kidney stone Hematuria 70473357 (SNOMED CT) 12/16 Resolved 12/16 Debra Mildred RAILWAYS ASSISTANT Blood in urine Carpal tunnel syndrome, bilateral 90823685 (SNOMED CT) 12/16 Resolved 12/20 Debra Taylor RAILWAYS ASSISTANT Carpal tunnel syndrome Annual nuclear test technician exam 92674949 (SNOMED CT) 01/25 Resolved 01/25 Debra Taylor RAILWAYS ASSISTANT Gynecologic examination HPV 848849110 (SNOMED CT) 02/05 Resolved 02/05 Debra Mildred RAILWAYS ASSISTANT Human papilloma virus infection HPV 989816193 (SNOMED CT) 02/05 Removed 02/05 Marycruz Elgin RAILWAYS ASSISTANT Human papilloma virus infection Abnormal pap smear 282684655 (SNOMED CT) 02/05 Removed 02/05 Marycruz [place] RAILWAYS ASSISTANT Abnormal cytology findings Annual nuclear test technician exam 63551980 (SNOMED CT) 01/25 Removed 01/25 Marycruz [place] RAILWAYS ASSISTANT Gynecologic examination Nipple discharge 21703708 (SNOMED CT) 12/30 Removed 12/30 Marycruz [place] RAILWAYS ASSISTANT Discharge from nipple Nipple discharge 92593466 (SNOMED CT) 12/30 Removed 12/30 Marycruz [place] RAILWAYS ASSISTANT Discharge from nipple Dysfunction al uterine bleeding 48329789 (SNOMED CT) 12/30 Removed 12/30 Marycruz [place] RAILWAYS ASSISTANT Dysfunctional uterine bleeding Dysmenorrhe a 041896936 (SNOMED CT) 12/30 Inactive 12/30 Marycruz [place] RAILWAYS ASSISTANT Dysmenorrhea Headache, cluster 674087066 (SNOMED CT) 12/16 Removed 12/20 Marycruz [place] RAILWAYS ASSISTANT Cluster headache Carpal tunnel syndrome, bilateral 30266813 (SNOMED CT) 12/16 Removed 12/20 Marycruz [place] RAILWAYS ASSISTANT Carpal tunnel syndrome Hematuria 17729731 (SNOMED CT) 12/16 Removed 12/16 Marycruz [place] RAILWAYS ASSISTANT Blood in urine Calculus, kidney 89397533 (SNOMED CT) 12/16 Removed 12/16 Marycruz [place] RAILWAYS ASSISTANT Kidney stone Gastric ulcer, hx of 852099339 (SNOMED CT) 12/16 Removed 12/16 Marycruz [place] RAILWAYS ASSISTANT H/O: gastric ulcer Sciatica, left 13039559 (SNOMED CT) 12/16 Removed 12/16 Marycruz Whitlock RAILWAYS ASSISTANT Sciatica Leg pain, left 29465430 (SNOMED CT) 12/16 Removed 12/16 Marycruz Whitlock RAILWAYS ASSISTANT Pain in lower limb Cluster headache 724938415 (SNOMED CT) 12/16 Removed 12/16 Marycruz Whitlock APRN Cluster headache Shoulder pain, left 719.41 (ICD-9-CM) 12/16 Removed 12/16 Marycruz Whitlock APRN Pain in joint involving shoulder region Hypertensio n 96986003 (SNOMED CT) Active 12/16 Marycruz Whitlock RAILWAYS ASSISTANT Hypertensive disorder Hyperlipide bunny 49708575 (SNOMED CT) Removed 12/16 Marycruz Whitlock RAILWAYS ASSISTANT Hyperlipidemia Depression 78798415 (SNOMED CT) Active 12/16 Marycruz Whitlock RAILWAYS ASSISTANT Depressive disorder Anxiety Disorder 154053830 (SNOMED CT) Active 12/16 Marycruz Whitlock BRENT Anxiety disorder Medications Medication Instructions Start Date Stop Date Generic Name [facility] Provider HYDROCHLOROTHIAZIDE 25 MG TABS Take 1 tablet by mouth once a day 12/16 hydrochlorothiazid e 78361558421 Adiel Ledbetter APRN HYDROCHLOROTHIAZIDE 25 MG TABS TAKE 1 TABLET BY MOUTH EVERY DAY 12/09 hydrochlorothiazid e 28096000105 Pebbles Rashid RAILWAYS ASSISTANT METOPROLOL TARTRATE 50 MG TABS Take 1 tablet by mouth once a day 01/02 metoprolol tartrate 01221050083 Isabela Kilgore APRN AMLODIPINE BESYLATE 15 MG ORAL TABLET Take 1 tablet by mouth once a day 07/18 AMLODIPINE BESYLATE Adiel Ledbetter APRN HYDROCHLOROTHIAZIDE 25 MG TABS Take 1 tablet by mouth once a day 12/16 hydrochlorothiazid e 26279202931 Adiel Ledbetter APRN METOPROLOL TARTRATE 50 MG TABS Take 1 tablet by mouth once a day 01/02 metoprolol tartrate 09477824470 Adiel Ledbetter APRN BIOFREEZE GEL Use as directed 01/28 BIOFREEZE GEL Nury Kraus [facility] ACCU-CHEK TRINA PLUS STRP Use 03/15 blood sugar diagnostic 77262644835 Marycruz Skinner MA METOPROLOL TARTRATE 50 MG TABS Take 1 tablet by mouth once a day 01/02 metoprolol tartrate 92028379702 Nury Kraus CMA HYDROCHLOROTHIAZIDE 25 MG TABS Take 1 tablet by mouth once a day 12/16 hydrochlorothiazid e 52833477254 Marycruz Skinner MA PROMETHAZINE HCL 25 MG TABS Take 1 tablet by mouth every eight hours as needed 01/02 promethazine 55853549621 Marycruz Skinner MA IBUPROFEN 800 MG TABS Take 1 tablet three times a day as needed 12/01 ibuprofen 24378617648 Marycruz Skinner MA ACCU-CHEK TRINA PLUS w/Device KIT Use 03/15 blood-glucose meter 67848820616 Marycruz Skinner MA VENTOLIN HFA 108 (90 Base) MCG/ACT AERS Take 2 four times a day as needed 12/30 albuterol sulfate 65036144959 Marycruz Skinner MA ACCU-CHEK FASTCLIX LANCET KIT Use 03/15 LANCETS MISC. Marycruz Skinner MA AMLODIPINE BESYLATE 15 MG ORAL TABLET Take 1 tablet by mouth once a day 07/18 AMLODIPINE BESYLATE Mallory Johnson MA LEVAQUIN 500 MG ORAL TABLET TAKE 1 TABLET BY MOUTH 1 TIME A DAY FOR 10 DAYS 01/31 LEVOFLOXACIN 81356485483 Nidia Theodore MD AUGMENTIN 500-125 MG ORAL TABLET TAKE 1 TABLET BY MOUTH 3 TIMES A DAY FOR 10 DAYS 01/28 AMOXICILLIN-POT CLAVULANATE 66471737624 Nidia Theodore MD BIOFREEZE GEL USE DIRECTED 01/28 BIOFREEZE GEL Nidia Theodore MD AUGMENTIN 500-125 MG ORAL TABLET TAKE 1 TABLET BY MOUTH 3 TIMES A DAY FOR 10 DAYS 01/28 AMOXICILLIN-POT CLAVULANATE 78615412055 Nidia Theodore MD HYDROXYZINE HCL 10 MG TABS TAKE ONE TABLET 3 TIMES A DAY NEEDED FOR ANXIETY 12/30 HYDROXYZINE HCL 29931880469 Kallie Quinn APRN AMLODIPINE BESYLATE 15 MG ORAL TABLET (AMLODIPINE BESYLATE) TAKE 1 TABLET BY MOUTH 1 TIME A DAY 07/18 AMLODIPINE BESYLATE 15 MG ORAL TABLET (AMLODIPINE BESYLATE) Kallie Quinn APRN IMITREX 50 MG TABS TAKE 1 TABLET BY MOUTH AT ONSET OF HEADACHE, MAY REPEAT IN 2 HOURS 01/15 SUMATRIPTAN SUCCINATE 49825316284 Kallie Quinn APRN IMITREX 50 MG TABS TAKE 1 TABLET BY MOUTH AT ONSET OF HEADACHE, MAY REPEAT IN 2 HOURS 01/15 SUMATRIPTAN SUCCINATE 74138949367 Jerrica Enamorado MD PROMETHAZINE HCL 25 MG TABS TAKE 1 TABLET BY MOUTH EVERY 8 HOURS NEEDED FOR NAUSEA 01/02 PROMETHAZINE HCL 38264770398 Jerrica Enamorado MD NORCO 7.5-325 MG ORAL TABLET TAKE ONE TAB ORALLY EVERY 4 HOURS NEEDED FOR PAIN 03/05 HYDROCODONE-ACETAM INOPHEN 56394159501 Jerrica Enamorado MD PROMETHAZINE HCL 25 MG TABS TAKE 1 TABLET BY MOUTH EVERY 6 HOURS NEEDED FOR NAUSEA 05/12 PROMETHAZINE HCL 58857963596 Jerrica Enamorado MD METOPROLOL TARTRATE 50 MG TABS TAKE 1 TABLET BY MOUTH 1 TIME A DAY 01/02 METOPROLOL TARTRATE 34412587392 Jerrica Enamorado MD TRAMADOL HCL 50 MG TABS 1 PO TID PRN 12/09 TRAMADOL HCL 36440563114 Jerrica Enamorado MD RANITIDINE HCL 150 MG ORAL TABLET TAKE 1 TABLET BY MOUTH EVERY 12 HOURS NEEDED 12/01 RANITIDINE HCL 63446638373 Jerrica Enamorado MD BUTALBITAL-ACETAMINO PHEN 50-325 MG TABS 1 PO BID PRN 12/01 BUTALBITAL-ACETAMI NOPHEN 83366557997 Jerrica Enamorado MD LORATADINE 10 MG TABS TAKE 1 TABLET BY MOUTH 1 TIME A DAY 07/11 LORATADINE 71935033135 Jerrica Enamorado MD IMITREX 100 MG TABS TAKE 1/2-1 TABLET BY MOUTH AT ONSET OF HEADACHE, MAY REPEAT IN 2 HOURS 05/16 SUMATRIPTAN SUCCINATE 53001595559 Jerrica Enamorado MD TRAMADOL HCL 50 MG TABS 1 PO TID PRN 12/09 TRAMADOL HCL 30670072079 [facility]IL[facility]IST[facility] TRAMADOL HCL 50 MG TABS 1 PO BID PRN 12/09 TRAMADOL HCL 74404279456 [facility] LEV[facility]QUIN 500 MG ORAL TABLET TAKE 1 TABLET BY MOUTH 1 TIME A DAY FOR 10 DAYS 12/01 LEVOFLOXACIN 91503334650 [facility] RANITIDINE HCL 150 MG ORAL TABLET TAKE 1 TABLET BY MOUTH EVERY 12 HOURS NEEDED 12/01 RANITIDINE HCL 61206342426 [facility] IMITREX 100 MG TABS TAKE 1/2-1 TABLET BY MOUTH AT ONSET OF HEADACHE, MAY REPEAT IN 2 HOURS 05/16 SUMATRIPTAN SUCCINATE 20994814438 [facility] BUTALBITAL-ACETAMINO PHEN 50-325 MG TABS 1 PO BID PRN 12/01 BUTALBITAL-ACETAMI NOPHEN 92056160496 [facility] LORATADINE 10 MG TABS TAKE 1 TABLET BY MOUTH 1 TIME A DAY 07/11 LORATADINE 95048539776 [facility] LEVAQUIN 500 MG ORAL TABLET TAKE 1 TABLET BY MOUTH 1 TIME A DAY FOR 10 DAYS 12/01 LEVOFLOXACIN 84003767294 [facility] IBUPROFEN 800 MG TABS take one tab tid daily with food prn 12/01 IBUPROFEN 37382484123 Jerrica Enamorado MD TAMIFLU 75 MG CAPS TAKE ONE TAB TWICE DAILY FOR 5 DAYS 03/05 OSELTAMIVIR PHOSPHATE 00651928618 Kallie Quinn BRENT ZITHROMAX Z-JOHN 250 MG TABS TAKE 2 TABLETS BY MOUTH ON DAY 1 THEN 1 TABLET BY MOUTH DAILY FOR 4 DAYS (DAY 2-5) 03/05 AZITHROMYCIN 96593994420 Nia Aguilera APRN HYDROXYZINE HCL 10 MG TABS TAKE ONE TABLET 3 TIMES A DAY NEEDED FOR ANXIETY 12/30 HYDROXYZINE HCL 38887217571 Nia Aguilera APRN NORCO 7.5-325 MG ORAL TABLET TAKE ONE TAB ORALLY EVERY 4 HOURS NEEDED FOR PAIN 03/05 HYDROCODONE-ACETAM INOPHEN 28491621268 Nia Aguilera APRN TAMIFLU 75 MG CAPS TAKE ONE TAB TWICE DAILY FOR 5 DAYS 03/05 OSELTAMIVIR PHOSPHATE 59971935512 Nia Aguilera APRN XULANE 150-35 MCG/24HR PTWK 03/15 NORELGESTROMIN-ETH ESTRADIOL 91627001432 Nia Aguilera APRN FERROUS SULFATE 325 (65 Fe) MG TABS TAKE 1 TABLET BY MOUTH 1 TIME A DAY 03/17 FERROUS SULFATE 62617864697 Nia Aguilera APRN QVAR 80 MCG/ACT INHALATION AEROSOL SOLUTION USE 1 PUFF TWICE A DAY 03/27 BECLOMETHASONE DIPROPIONATE 38394483606 Nia Aguilera APRN AMLODIPINE BESYLATE 5 MG TABS TAKE 1 TABLET BY MOUTH 1 TIME A DAY 07/18 AMLODIPINE BESYLATE 65360488464 Cody Whitlock RAILWAYS ASSISTANT MEDROL 4 MG TBPK USE DIRECTED 07/11 METHYLPREDNISOLONE 64744852344 Nia Aguilera APRN LORATADINE 10 MG TABS TAKE 1 TABLET BY MOUTH 1 TIME A DAY 07/11 LORATADINE 44908931622 Nia Aguilera APRN LISINOPRIL 20 MG TABS TAKE 1 TABLET BY MOUTH 1 TIME A DAY 12/16 LISINOPRIL 82368742014 Nia Aguilera APRN IMITREX 100 MG TABS TAKE 1/2-1 TABLET BY MOUTH AT ONSET OF HEADACHE, MAY REPEAT IN 2 HOURS 05/16 SUMATRIPTAN SUCCINATE 12977009707 Nia Aguilera APRN XULANE 150-35 MCG/24HR PTWK 03/15 NORELGESTROMIN-ETH ESTRADIOL 12948407311 Nia Aguilera APRN IMITREX 100 MG TABS TAKE 1/2-1 TABLET BY MOUTH AT ONSET OF HEADACHE, MAY REPEAT IN 2 HOURS 05/16 SUMATRIPTAN SUCCINATE 28526565210 Nia Aguilera APRN CEFDINIR 300 MG CAPS TAKE 1 CAPSULE BY MOUTH TWICE A DAY FOR 10 DAYS 05/16 CEFDINIR 51350799367 Nia Aguilera APRN PROMETHAZINE HCL 25 MG TABS TAKE 1 TABLET BY MOUTH EVERY 6 HOURS NEEDED FOR NAUSEA 05/12 PROMETHAZINE HCL 72500158429 Nia Aguilera APRN PREDNISONE 20 MG TABS TAKE 1 TABLET BY MOUTH 3 TIMES A DAY FOR 4 WEEKS. TAKE WITH FOOD. 05/09 PREDNISONE 99085035787 Nia Aguilera APRN FLOVENT HFA 110 MCG/ACT INHALATION AEROSOL TAKE 2 INHALATIONS TWICE A DAY RINSE MOUTH WELL AFTER EACH USE 03/30 FLUTICASONE PROPIONATE HFA 47227151520 Debra Levy APRN QVAR 80 MCG/ACT INHALATION AEROSOL SOLUTION USE 1 PUFF TWICE A DAY 03/27 BECLOMETHASONE DIPROPIONATE 91844475044 Debra Levy APRN FERROUS SULFATE 325 (65 Fe) MG TABS TAKE 1 TABLET BY MOUTH 1 TIME A DAY 03/17 FERROUS SULFATE 50936838555 Debra Levy APRN ACCU-CHEK FASTCLIX LANCET KIT CHECK BS WHEN SYMPTOMATIC OR PREFERRED/GEN JERONIMO 03/15 LANCETS MISC. 83385693576 Nia Aguilera APRN ACCU-CHEK TRINA PLUS STRP CHECK BS WHEN SYMPTOMATIC OR PREFERRED/GEN JERONIMO 03/15 GLUCOSE BLOOD 22432502511 Nia Aguilera APRN ACCU-CHEK TRINA PLUS w/Device KIT CHECK BLOOD SUGAR WHEN SYMPTOMATIC OR PREFERRED/GEN JERONIMO 03/15 BLOOD GLUCOSE MONITORING SUPPL 90547750336 Debra Levy APRN XULANE 150-35 MCG/24HR PTWK 03/15 NORELGESTROMIN-ETH ESTRADIOL 36146323834 Debra Levy APRN OMEPRAZOLE 20 MG CPDR TAKE 1 CAPSULE BY MOUTH ONCE A DAY 12/16 OMEPRAZOLE 75913523047 Debra Levy APRN CALCIUM + D 315-200 MG-UNIT ORAL TABLET TAKE ONE TABLET DAILY 01/27 CALCIUM CITRATE-VITAMIN D 50206840532 Debra Levy APRN CETIRIZINE HCL 10 MG TABS TAKE 1 TABLET BY MOUTH EACH DAY FOR ALLERGIES 03/15 CETIRIZINE HCL 94184553534 Debra Taylor RAILWAYS ASSISTANT CETIRIZINE HCL 10 MG TABS TAKE 1 TABLET BY MOUTH EACH DAY FOR ALLERGIES CETIRIZINE HCL 77632815709 Debra Levy APRN FLOVENT HFA 110 MCG/ACT INHALATION AEROSOL TAKE 2 INHALATIONS TWICE A DAY RINSE MOUTH WELL AFTER EACH USE FLUTICASONE PROPIONATE HFA 19876896253 Debra Levy APRN DOXYCYCLINE HYCLATE 100 MG TABS TAKE 1 TABLET BY MOUTH EVERY 12 HRS X 10 DAYS 03/19 DOXYCYCLINE HYCLATE 55335088645 Debra Levy APRN CALCIUM + D 315-200 MG-UNIT ORAL TABLET TAKE ONE TABLET DAILY 01/27 CALCIUM CITRATE-VITAMIN D 01621182037 Marycruz Whitlock APRN VENTOLIN HFA 108 (90 Base) MCG/ACT AERS TAKE 2 INHALATIONS 4 TIMES A DAY NEEDED FOR WHEEZING AND COUGH 12/30 ALBUTEROL SULFATE 47079061049 Nia Aguilera APRN HYDROXYZINE HCL 10 MG TABS TAKE UP TO 3 TIMES A DAY FOR ANXIETY 12/30 HYDROXYZINE HCL 26394917638 Nia Aguilera APRN OMEPRAZOLE 20 MG CPDR TAKE 1 CAPSULE BY MOUTH ONCE A DAY 12/16 OMEPRAZOLE 32263781854 Debra Levy APRN HYDROCHLOROTHIAZIDE 25 MG TABS TAKE 1 TABLET BY MOUTH 1 TIME A DAY 12/16 HYDROCHLOROTHIAZID E 07956037063 Cody Kamlesh RAILWAYS ASSISTANT LISINOPRIL 20 MG TABS TAKE 1 TABLET BY MOUTH 1 TIME A DAY 12/16 LISINOPRIL 39736686258 Debra Levy APRN Medications Administered No information available. Allergies, Adverse Reactions, Alerts Allergy Name Reaction Description Start Date Severity Statu s Provider PERCOCET VOMITING Critical Active Kallie Peace ll RAILWAYS ASSISTANT ILSA INHIBITORS ANGIOEDEMA Critical Active Tar a Ale RAILWAYS ASSISTANT SULFA SWELLING Moderate Active Marycruz St alatorreepapi RAILWAYS ASSISTANT Results Date Name Value Unit Range Flag [...] in Blood ABS NEUTROPH 6223 CELLS/UL 10*3/uL 5618-8347 N Neutrophils [#/volume] in Blood MPV 10.0 [...] room 9 LABS ORDERED Urine Dip Auto 64256, Strep Screen 49663 Laboratory tests ordered PH URINE 7.0 pH [...] of Care Type Date Detail Referral Gastroenterology [facility], [address], [place], [place] Referral excluded fr om report: [facility]erral [facility] Foot & Ankle-Podiatry Podiatry [facility], [address] [place], [address] Ref[facility] Foot & Ankle-Podiatry Podiatry [facility], [address] [place], [address] Referral excluded fr om report: [facility] Ear No se & Throat-ENT Throat [facility], [address], [place], [address] Referral [facility], [address], [address], [address], [place], [address] Referral Cardiology Refer [facility] , [address], [place], [address] Referral Urology Referral [facility]rology [facility], [address], [address], [address], [place], [place] Referral [employer] Referral [facility], [address], [place], [address] Referral Urology Referral [facility]rology [facility], [address], [address], [address], [place], [place] Pending order T1 CBC with diff [...] l Pending order Other Pending order SNOMED-CT: 59405 3000 Smoking Cessation Counseling Pending order SNOMED-CT: 99761 [id number] Current Medications Documented Pending order CBC with diff Pending order CMP Pending order Lipid Panel Pending order HGBA1c Pending order TSH reflex to fr ee T4 Pending order Vitamin D 25 Hyd joo Pending order Fluzone High-Dos e Intramuscular Suspension Pending order IMADM >18YR IM R OUTE 1ST VAC/TOXOID Pending order Other Pending order SNOMED-CT: 66072 3000 Smoking Cessation Counseling Pending order SNOMED-CT: 08545 [id number] Current Medications Documented Pending order Sedimentation Ra [...] Procedures Code Procedure Name Date Entry Date [facility]-[id number] Medication Reconciliation [facility] 6399 T1 CBC with diff [facility] 86686 T1 CMP [facility] 496 T1 HGBA1c [facility] 90066 T1 Lipid Panel [facility] 35458 T1 TSH reflex to free T4 12/02/13 [facility] 95260 T2 Vitamin D 25 Hydroxy 2020 CPT-3075F Most recent systolic blood pressure 130-139 mm Hg CPT-3079F Most recent diastoli c blood pressure 80-89 mm Hg SCT-[id number] Medication Reconciliation CPT-3077F Most recent systolic blood pressure >=140 mm Hg CPT-3079F Most recent diastoli c blood pressure 80-89 mm Hg [facility] 395 T1 Urine Culture CPT-47777 Urine Dip Auto 97245 CPT-56445 Strep Screen 99472 5 SCT-[id number] Medication Reconciliation US PELVIS YNES Ultrasound Pelvis 7 CPT-3077F Most recent systolic blood pressure >=140 mm Hg CPT-1159F Medication list docu mented in medical record CPT-1160F Review of all medica tions by a prescribing practitioner CPT-46725 Urine Dip Auto 37583 CPT-75838 Test 59623 [facility] 57728 T2 BV Yeast Trich Culture (Affirm) 12/22 SCT-[id number] Medication Reconciliation SCT-[id number] SNOMED-CT: 479676497 516967 Current Medications Documented [facility] CPT-3075F Most recent systolic blood pressure 130-139 mm Hg NEURO GEN Neurology Referral General 2 SCT-[id number] Medication Reconciliation CPT-3074F Most recent systolic blood pressure <130 mm Hg CPT-3079F Most recent diastoli c blood pressure 80-89 mm Hg SCT-[id number] Medication Reconciliation SCT-429589720647239 SNOMED-CT: 374732877 528552 Current Medications Documented CPT-3074F Most recent systolic blood pressure <130 mm Hg CPT-3074F Most recent systolic blood pressure <130 mm Hg [facility] SCT-[id number] Medication Reconciliation ct abd pel w-out edg CT Abdomen and Pelvis w-out contr ast CPT-3074F Most recent systolic blood pressure <130 mm Hg CPT-69973 Test 34189 CPT-25544 Urine Dip Auto 79698 SCT-[id number] Medication Reconciliation X-Ray Chest X-Ray Chest CPT-3077F Most recent systolic blood pressure >=140 mm Hg SCT-949855905 Dietary management education/guidance/counseling SCT-133591928465944 Medication Reconciliation CPT-3075F Most recent systolic blood pressure 130-139 mm Hg CPT-3079F Most recent diastoli c blood pressure 80-89 mm Hg Podiatry [facility] Foot & Ankle-Podiatry 0 SCT-[id number] Medication Reconciliation CPT-58429 Fluzone Quadrivalent Preservative Free Intramuscular Suspension 0.5 ML CPT-71867 IMADM >18YR IM ROUTE 1ST VAC/TOXOID 10/26 6399 [facility] Test # CBC with diff 1 09349 [facility] Test # CMP 1 496 [facility] Test # HGBA1c 17223 [facility] Test # Lipid Panel 1 7573 [facility] Test # TIBC w iron level 10/26 98849 [facility] Test # TSH reflex to free T4 36514 [facility] Test # Vitamin D 25 Hydroxy 2 CPT-74557 Urine Dip Auto 41472 SCT-[id number] Medication Reconciliation SCT-925421196729811 Medication Reconciliation CPT-89929 Urine Dip Auto 64494 CPT-56178 Test 78620 SCT-[id number] Medication Reconciliation SCT-875124637898945 Medication Reconciliation Other Other [facility]ose [facility] Th[facility]-ENT 5 SCT-233024992281148 Medication Reconciliation INJORDER Injection(s) Ordered CPT-J1885 Toradol per 15 mg SCT-176055507070330 Medication Reconciliation 6399 [facility] Test # CBC with diff 4 809 [facility] Test # Sedimentation Rate RBC 2 Other [facility] Other Neuro Ref [facility] CPT-58088 Venipuncture 55796 5 SCT-363806887719636 Medication Reconciliation 6399 [facility] Test # CBC with diff 5 19543 [facility] Test # CMP 5 496 [facility] Test # HGBA1c 7573 [facility] Test # TIBC w iron level 03/30 48115 [facility] Test # TSH reflex to free T4 Other [facility] Other CPT-97423 Venipuncture 12982 0 927 [facility] Test # B12 466 [facility] Test # Folic Acid SCT-091845046296783 Medication Reconciliation 6399 [facility] Test # CBC with diff 0 00533 [facility] Test # CMP 0 496 [facility] Test # HGBA1c 4021 Quest Test # Estradiol 470 [facility] Test # FSH 746 [facility] Test # Prolactin 615 Quest Test # [place] [address] Quest Test # TSH reflex to free T4 7573 [facility] Test # TIBC w iron level 03/15 Other [facility] Other SCT-512251587 SNOMED-CT: 128646815 Smoking Cessation Counseling SCT-124434638192490 SNOMED-CT: 409006246 621947 Current Medications Documented 6399 [facility] Test # CBC with diff 9 72803 [facility] Test # CMP 9 34365 [facility] Test # Lipid Panel 9 496 [facility] Test # HGBA1c 26658 [facility] Test # TSH reflex to free T4 24869 [facility] Test # Vitamin D 25 Hydroxy 2 Other Other Cardiology Referral Cardiology Referral [facility] CPT-01170 Fluzone High-Dose Intramuscular Suspensio n CPT-32632 IMADM >18YR IM ROUTE 1ST VAC/TOXOID 09/13 SCT-662197153 SNOMED-CT: 938283348 Smoking Cessation Counseling SCT-158277476752349 SNOMED-CT: 270949142 592804 Current Medications Documented [facility]OLOG[facility] Referral Urology BATTER MIXER Referral BATTER MIXER Referral [facility] CPT-89123 Strep Screen 33309 4 809 [facility] Test # Sedimentation Rate RBC 2 6399 [facility] Test # CBC with diff 4 68687 [facility] Test # CMP 4 Other [facility] Other Mammo DX YNES Mammogram Diagnostic [facility]# 74016 ThinPrep Pap w refle x HR HPV/GC/Chlamydia mRNA E6/E7 CPT-49807 Venipuncture 76375 4 249 [facility] Test # HENNA 6399 [facility] Test # CBC with diff 4 30573 [facility] Test # CMP 4 59841 [facility] Test # Lipid Panel 4 496 [facility] Test # HGBA1c 4418 [facility] Test # Rheumatoid Factor Quant 809 [facility] Test # Sedimentation Rate RBC 2 7573 [facility] Test # TIBC w iron level 12/30 62431 Quest Test # TSH reflex to free T4 66333 [facility] Test # Vitamin D 25 Dihydroxy X-Ray Thoracic Spine X-Ray Thoracic Spine X-Ray Lumbar Spine X-Ray Lumbar Spine 201 03/26/21 X-Ray Cervical Spine X-Ray Cervical Spine 88019 [facility] Test # Urine Drug Screen w/o [...]
--- OUTSIDE RECORDS SUMMARY | 2025-08-20 16:07 | XMS_ITS | Clinical Summary ---
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 30 tablet 2 3 Active hydroCHLOROthia zide 25 MG tablet Take 1 tablet by mouth Daily. Active Creon 74944-021195 units capsule delayed-release particles capsule Take 1 [...] EDT - 06/26/2025 3:54 PM EDT Emergency [facility] [address] [place] [phone] Hardy Bryan MD Chest pain, unspecified [...] <6 <14 ng/L 06/26/2025 3:19 PM EDT [facility] Troponin T Numeric Delta 06/26/2025 3:19 PM EDT [facility] Comment:Unable to calculate. Blood Venipuncture / Unknown 06/26/2025 2:56 PM EDT 06/26/2025 3:01 PM EDT Narrative [facility] - 06/26/2025 3:19 PM EDT [...] Bryan MD LAB BLOOD ORDERABLES Final Result [facility]
[address] [place] [address], * XR Chest 1 View (06/26/2025 1:28 [...] Hold for add-ons. 06/26/2025 1:30 PM EDT [facility] Comment:Auto resulted. Blood Venipuncture / Unknown 06/26/2025 1:23 PM EDT 06/26/2025 1:25 PM EDT us Hardy Bryan MD LAB BLOOD ORDER ONLY Final Result Performing Organization Address [facility]/ZIP Co de Phone Number [facility]
[address] [place] [address], * Green Top (Gel) (06/26/2025 1:23 PM EDT) Extra Tube Hold for add-ons. 06/26/2025 1:30 PM EDT [facility] Comment:Auto resulted. Blood Venipuncture / Unknown 06/26/2025 1:23 PM EDT 06/26/2025 1:25 PM EDT us Hardy Bryan MD LAB BLOOD ORDER ONLY Final Result Performing Organization Address City/[facility]/ZIP Co de Phone Number [facility]
[address] [place] [address], [place] [phone] * CBC Auto Differential (06/26/2025 1:23 PM EDT) WBC 7.02 3.40 - 10.80 10*3/mm3 06/26/2025 1:36 PM EDT [facility] RBC 4.85 3.77 - 5.28 10*6/mm3 06/26/2025 1:36 PM EDT [facility] Hemoglobin 14.8 12.0 - 15.9 g/dL 06/26/2025 1:36 PM EDT [facility] Hematocrit 43.1 34.0 - 46.6 % 06/26/2025 1:36 PM EDT [facility] MCV 88.9 79.0 - 97.0 fL 06/26/2025 1:36 PM EDT [facility] MCH 30.5 26.6 - 33.0 pg 06/26/2025 1:36 PM EDT [facility] MCHC 34.3 31.5 - 35.7 g/dL 06/26/2025 1:36 PM EDT [facility] RDW 12.6 12.3 - 15.4 % 06/26/2025 1:36 PM EDT [facility] RDW-SD 41.2 37.0 - 54.0 fl 06/26/2025 1:36 PM EDT [facility] MPV 9.7 6.0 - 12.0 fL 06/26/2025 1:36 PM EDT [facility] Platelets 412 140 - 450 10*3/mm3 06/26/2025 1:36 PM EDT [facility] Neutrophil % 52.3 42.7 - 76.0 % 06/26/2025 1:36 PM EDT [facility] Lymphocyte % 35.8 19.6 - 45.3 % 06/26/2025 1:36 PM EDT [facility] Monocyte % 10.4 5.0 - 12.0 % 06/26/2025 1:36 PM EDT [facility] Eosinophil % 1.0 0.3 - 6.2 % 06/26/2025 1:36 PM EDT [facility] Basophil % 0.4 0.0 - 1.5 % 06/26/2025 1:36 PM EDT [facility] Immature Grans % 0.1 0.0 - 0.5 % 06/26/2025 1:36 PM EDT [facility] Neutrophils, Absolute 3.67 1.70 - 7.00 10*3/mm3 06/26/2025 1:36 PM EDT [facility] Lymphocytes, Absolute 2.51 0.70 - 3.10 10*3/mm3 06/26/2025 1:36 PM EDT [facility] Monocytes, Absolute 0.73 0.10 - 0.90 10*3/mm3 06/26/2025 1:36 PM EDT [facility] Eosinophils, Absolute 0.07 0.00 - 0.40 10*3/mm3 06/26/2025 1:36 PM EDT [facility] Basophils, Absolute 0.03 0.00 - 0.20 10*3/mm3 06/26/2025 1:36 PM EDT [facility] Immature Grans, Absolute 0.01 0.00 - 0.05 10*3/mm3 06/26/2025 1:36 PM EDT [facility] nRBC 0.0 0.0 - 0.2 /100 WBC 06/26/2025 1:36 PM EDT [facility] Blood Venipuncture / Unknown 06/26/2025 1:23 PM EDT 06/26/2025 1:25 PM EDT us Hardy Bryan MD LAB BLOOD ORDERABLES Final Result [facility]
[address] [place] [address], [place] [phone] * Lavender Top (06/26/2025 1:23 PM EDT) Extra Tube hold for add-on 06/26/2025 1:30 PM EDT [facility] Comment:Auto resulted Blood Venipuncture / Unknown 06/26/2025 1:23 PM EDT 06/26/2025 1:25 PM EDT us Hardy Bryan MD LAB BLOOD ORDER ONLY Final Result [facility]
[address] [place] [address], [place] [phone] * Light Blue Top (06/26/2025 1:23 PM EDT) Pathologist [facility] Extra Tube Hold for add-ons. 06/26/2025 1:30 PM EDT [facility] Comment:Auto resulted Blood Venipuncture / Unknown 06/26/2025 1:23 PM EDT 06/26/2025 1:25 PM EDT us Hardy Bryan MD LAB BLOOD ORDER ONLY Final Result [facility]
[address] [place] [address], [place] [phone] * High Sensitivity Troponin T (06/26/2025 1:23 PM EDT) [facility] Troponin T <6 <14 ng/L 06/26/2025 1:48 PM EDT [facility] Blood Venipuncture / Unknown 06/26/2025 1:23 PM EDT 06/26/2025 1:25 PM EDT Narrative [facility] - 06/26/2025 1:48 PM EDT [...] Bryan MD LAB BLOOD ORDERABLES Final Result [facility]
[address] [place] [address], [place] [phone] * (ABNORMAL) Comprehensive Metabolic Panel (06/26/2025 1:23 PM EDT) [facility] Glucose 174(H) 65 - 99 mg/dL 06/26/2025 1:46 PM EDT [facility] BUN 20.0 6.0 - 20.0 mg/dL 06/26/2025 1:46 PM T [facility] Creatinine 0.72 0.57 - 1.00 mg/dL 06/26/2025 1:46 PM T [facility] Sodium 131(L) 136 - 145 mmol/L 06/26/2025 1:46 PM EDT [facility] Potassium 4.2 3.5 - 5.2 mmol/L 06/26/2025 1:46 PM T [facility] Chloride 95(L) 98 - 107 mmol/L 06/26/2025 1:46 PM T [facility] CO2 23.6 22.0 - 29.0 mmol/L 06/26/2025 1:46 PM EDT [facility] Calcium 9.9 8.6 - 10.5 mg/dL 06/26/2025 1:46 PM EDT [facility] Total Protein 7.7 6.0 - 8.5 g/dL 06/26/2025 1:46 PM [facility] Albumin 4.4 3.5 - 5.2 g/dL 06/26/2025 1:46 PM [facility] ALT (SGPT) 32 1 - 33 U/L 06/26/2025 1:46 PM EDT [facility] AST (SGOT) 10 1 - 32 U/L 06/26/2025 1:46 PM T [facility] Alkaline Phosphatase 103 39 - 117 U/L 06/26/2025 1:46 PM T [facility] Total Bilirubin 0.5 0.0 - 1.2 mg/dL 06/26/2025 1:46 PM T [facility] Globulin 3.3 gm/dL 06/26/2025 1:46 PM [facility] A/G Ratio 1.3 g/dL 06/26/2025 1:46 PM EDT [facility] BUN/Creatinine Ratio 27.8(H) 7.0 - 25.0 06/26/2025 1:46 PM EDT [facility] Anion Gap 12.4 5.0 - 15.0 mmol/L 06/26/2025 1:46 PM EDT [facility] eGFR 102.0 >60.0 mL/min/1.7 3 06/26/2025 1:46 PM EDT [facility] Blood Venipuncture / Unknown 06/26/2025 1:23 PM EDT 06/26/2025 1:25 PM EDT Narrative [facility] - 06/26/2025 1:46 PM EDT [...] Bryan MD LAB BLOOD ORDERABLES Final Result [facility]
[address] [place] [address], * ECG 12 Lead ED Triage Standing Order; Chest Pain (06/26/2025 1:09 PM EDT) Hardy Bryan MD ECG ORDERABLES Final Result * (ABNORMAL) Hemoglobin A1c (07/14/2021 6:31 AM EDT) Hemoglobin A1C 5.70(H) 4.80 - 5.60 % 07/14/2021 7:13 AM EDT [facility] Blood Venipuncture / Unknown 07/14/2021 6:31 AM EDT 07/14/2021 6:53 AM EDT Narrative [facility] - 07/14/2021 7:13 AM EDT Hemoglobin A1C Ranges: Increased Risk for Diabetes 5.7% to 6.4% Diabetes >= 6.5% Diabetic Goal < 7.0% Ayesha Jennings PARASITOLOGY TEACHER LAB BLOOD ORDERABLES Final Result [facility]
[address] [place] [address], * (ABNORMAL) Lipid Panel (07/14/2021 6:31 AM EDT) Total Cholesterol 192 0 - 200 mg/dL 07/14/2021 7:38 AM EDT [facility] Triglycerides 326(H) 0 - 150 mg/dL 07/14/2021 7:38 AM EDT [facility] HDL Cholesterol 34(L) 40 - 60 mg/dL 07/14/2021 7:38 AM EDT [facility] LDL Cholesterol 103(H) 0 - 100 mg/dL 07/14/2021 7:38 AM EDT [facility] VLDL Cholesterol 55(H) 5 - 40 mg/dL 07/14/2021 7:38 AM EDT [facility] LDL/HDL Ratio 2.73 07/14/2021 7:38 AM EDT [facility] Blood Venipuncture / Unknown 07/14/2021 6:31 AM EDT 07/14/2021 6:53 AM EDT Narrative [facility] - 07/14/2021 7:38 AM EDT Cholesterol [...] mg/dL Very High >189 mg/dL Ayesha Jennings PARASITOLOGY TEACHER LAB BLOOD ORDERABLES Final Result [facility]
[address] [place] [address], * Mammo Screening Digital Tomosynthesis Bilateral With [...] architectural distortion to suggest malignancy. Shana Min PARASITOLOGY TEACHER IMG MAMMOGRAPHY ORD ERABLES Final Result * Hepatitis C Antibody (12/04/2019 3:22 PM EST) Hepatitis C Ab Non-Reacti ve Non-Reacti ve 12/04/2019 11:49 PM EST [facility] Blood Venipuncture / Unknown 12/04/2019 3:22 PM EST 12/04/2019 3:22 PM EST Narrative [facility] - 12/04/2019 11:49 PM EST Results may be falsely decreased if patient taking Biotin. us Graciela Darnell PARASITOLOGY TEACHER LAB BLOOD ORDERABLES Final Resu lt [facility]
[address] [place] [address], from Last 3 Months or Most Recently [...] pulse or is breathing): Full Care Teams Kineseologist Relationship Specialty Start Date End Date Laura [place] [address] [place] [address] PCP - General Nurse Practitioner 11/23/23
--- OUTSIDE RECORDS SUMMARY | 2025-08-20 16:08 | XMS_ITS | Clinical Summary ---
Author Organization [employer] ([place], [place], [place], [place]) Address [address] [place] [address] Care Team Providers Care Density Control Puncher Name Role Phone Unavailable Primary Care Provider [...] Date Carl rded Speak language other than Emirati at home Not on file 12/08/2023 Want [...] Vaccine (#1) 2025 08/28/2019, 2014 Insurance [employer] [facility] Advance Directives For more information, please contact: [phone] * Full Code (Latest Code Status on File) Date Activated Date Inactivated Comments 12/07/2022 3:45 PM 12/08/2022 7:01 PM
--- OUTSIDE RECORDS SUMMARY | 2025-08-20 16:08 | XMS_ITS | Encounter Summary ---
Author Organization [employer] ([place], [place], [place], [place]) Address [address] [place] [address] Care Team Providers Care Music Typographer Name Role Phone Unavailable Primary Care Provider Unavailabl e Reason for Visit * Reason Comments Medication Refill Encounter Details Date Type Department Care Team (Late st Contact Info) Description 05/06/2024 Refill [facility] [address] [place] [address] Marycruz Trevizo, PERSONNEL ADMINISTRATOR [address] [place] [address] Social History Tobacco Use Types Packs/Day Years [...] Date Carl rded Speak language other than Maori at home Not on file 12/08/2023 Want [...]
--- OUTSIDE RECORDS SUMMARY | 2025-08-20 16:09 | XMS_ITS | Referral Summary ---
Author Organization [employer] ([place], [place], [place], [place]) Address [address] [place] [address] Care Team Providers Care Neurology Manager Name Role Phone Unavailable Primary Care [...] Date Carl rded Speak language other than [place]ican at home Not on file 12/08/2023 Want [...] [place] [address] [place] [id number] [employer]NA [facility] Advance Directives For more information, please contact: [phone] * Full Code (Latest Code Status on File) Date Activated Date Inactivated Comments 12/07/2022 3:45 PM 12/08/2022 7:01 PM
--- OUTSIDE RECORDS SUMMARY | 2025-08-20 16:09 | XMS_ITS | Encounter Summary ---
Author Organization [facility] Address [address] [place] [address] Care Team Providers Care Inside Sales Specialist Name Role Phone Karime Pinto APRN, DNP Primary Care Provider + Reason for Visit * Reason Comments Med Refill Encounter Details Date Type Department Care Team (Late st Contact Info) Description 05/03/2021 Refill Lorna Bee [address] [address] Karime Pinto APRN, DNP [address] [place] [phone] Social History Tobacco Use Types Packs/Day [...] on filedocumented in this encounter Care Teams Inside Sales Specialist Relationship Specialty Start Date End Date Karime Pinto APRN, DNP [address] [place] [phone] PCP - General 04/08/21 08/23/21 documented as of this encounter
--- OUTSIDE RECORDS SUMMARY | 2025-08-20 16:09 | XMS_ITS | Encounter Summary ---
Author Organization [employer] ([place], [place], [place], [place]) Address [address] [place] [address] Care Team Providers Care Mixing Machine Tender Cork Gasket Name Role Phone Unavailable Primary Care Provider Unavailabl e Reason for Visit * Reason Comments Medication Refill Encounter Details Date Type Department Care Team (Late st Contact Info) Description 10/14/2024 Refill [facility] [address] [place] [address] Marycruz Trevizo, [employer] SALESPERSON [address] [place] [address] Social History Tobacco Use Types Packs/Day Years [...] Date Carl rded Speak language other than Belarusian at home Not on file 12/08/2023 Want [...]
--- OUTSIDE RECORDS SUMMARY | 2025-08-20 16:09 | XMS_ITS | Encounter Summary ---
Author Organization [employer] ([place], [place], [place], [place]) Address [address] [place] [address] Care Team Providers Care Commercial Airplane Pilot Name Role Phone Unavailable Primary Care Provider Unavailabl e Encounter Details Date Type Department Care Team (Late st Contact Info) Description 08/30/2021 Transcribed Document [facility] [place] [facility] [place] [address] ProviderElena MD [address] [place] [address] Social History Tobacco Use Types Packs/Day [...] Elena ProviderMD - 08/30/2021 3:23 PM CDT [address] [address] DONYA JERONIMO :1975 Visit Time:08/30/2021 [...] Where: [address] [place] [address]- Medications What How Much When Instructions Next [...] provider. This is important. Medicines ??? Take vxwf-bqr-jutgohw and prescription medicines only as told by [...] provider. Document Revised: 07/23/2019 Document Reviewed: 07/23/2019 [employer] Patient Education ?? 2020 [employer] Transesophageal Echocardiogram Transesophageal echocardiogram (GEORGE) is [...] diabetes medicines or blood thinners. ? Taking wtay-zkv-kfpdief medicines, vitamins, herbs, and supplements. ? Taking [...] provider. Document Revised: 08/01/2019 Document Reviewed: 02/13/2018 [employer] Patient Education ?? 2020 [employer] Moderate Conscious Sedation, Adult, Care After [...] you are awake and alert. ??? Take ooja-xur-eivzjca and prescription medicines only as told by [...] provider. Document Revised: 10/07/2020 Document Reviewed: 10/07/2020 [employer] Patient Education ?? 2020 [employer]. Emergency Awareness and Preventative Care STROKE is [...] Assistance with quitting is available by contacting 1-465-JVMZ-NOW. This is a free resource providing counseling, [...] was given the opportunity to ask questions. Patient/Finish Production Manager Name: Patient/Finish Production Manager Signature: Relationship to Patient: Clinician/Hospital Finish Production Manager Signature: Date: documented in this encounter Plan of Treatment Not on file documented as of this encounter Visit Diagnoses Not on filedocumented in this encounter
--- OUTSIDE RECORDS SUMMARY | 2025-08-20 16:09 | XMS_ITS | Encounter Summary ---
Author Organization [employer] ([place], [place], [place], [place]) Address [address] [place] [address] Care Team Providers Care Net Ui Developer Name Role Phone Unavailable Primary Care Provider Unavailabl e Encounter Details Date Type Department Care Team (Late st Contact Info) Description 08/30/2021 Transcribed Document [facility] [place] Family [place] [facility] [place] [address] ProviderElena MD [address] [place] [id number] Social History Tobacco Use Types Packs/Day Years [...]
--- OUTSIDE RECORDS SUMMARY | 2025-08-20 16:09 | XMS_ITS | Encounter Summary ---
Author Organization [facility] Address [address] [place] [address] Care Team Providers Care Dog License Officer Supervisor Name Role Phone Karime Pinto APRN, DNP Primary Care Provider + Reason for Visit * Reason Comments Med Refill Encounter Details Date Type Department Care Team (Late st Contact Info) Description 05/10/2021 Refill Lorna Bee [address] [address] Karime Pinto APRN, DNP [address] [place] [phone] Social History Tobacco Use Types Packs/Day [...] on filedocumented in this encounter Care Teams Dog License Officer Supervisor Relationship Specialty Start Date End Date Karime Pinto APRN, [facility] [address] [place] [phone] PCP - General 04/08/21 08/23/21 documented as of this encounter
--- OUTSIDE RECORDS SUMMARY | 2025-08-20 16:10 | XMS_ITS | Encounter Summary ---
Author Organization [facility] Address [address] [place] [address] Care Team Providers Care Aircraft Systems Technician Name Role Phone Karime Pinto APRN, DNP Primary Care Provider + Reason for Visit * Reason Comments Med Refill Encounter Details Date Type Department Care Team (Late st Contact Info) Description 07/05/2021 Refill Lorna Bee [address] [phone] Karime Pinto APRN, DNP [address] [place] [phone] Social History Tobacco Use Types Packs/Day [...] documented as of this encounter Care Teams Aircraft Systems Technician Relationship Specialty Start Date End Date Karime Pinto APRN, CHARLEY [address] [place] [phone] PCP - General 04/08/21 08/23/21 documented as of this encounter
--- OUTSIDE RECORDS SUMMARY | 2025-08-20 16:10 | XMS_ITS | Clinical Summary ---
Author Organization [facility] Address [address] [place] [address] Care Team Providers Care Forest Manager Name Role Phone Unavailable Primary Care [...] TIMES DAILY TESTING 11/02/2020 Active Glucose Blood (Network VisionUCH ULTRA BLUE ) TEST 3 TIMES DAILY. [...] 2025 UKY-Zoster Vaccines (1 of 2) 2025 [id number] Vaccine (1 - season) 2025 UKY-Influenza Vaccine [...] age to complete this topic Insurance [employer] [facility] MEDICAID
--- OUTSIDE RECORDS SUMMARY | 2025-08-20 16:10 | XMS_ITS | Encounter Summary ---
Author Organization [facility] Address [address] [place] [address] Care Team Providers Care Restaurant Delivery Driver Name Role Phone Laura Cobian Primary Care Provider + [phone] Encounter Details Date Type Department Care Team (Late st Contact Info) Description 12/03/2013 Conversion Encounter [facility] [address] [place] [address] Interface, See Report Social History [...] PM EST Clinical Report - Physicians/Mid Levels [facility] Emergency Department [address] [place] [id number] 12/03/2013 Patient: DONYA JERONIMO Sex: F : [...] (FEU) Chest 1V Port: (KAYLAN: 12/03/2013 16:20)( [facility] 12/03/2013 16:20) Final results ED BED 11 Exam Report AP PORTABLE ERECT CHEST 12/03/2013 AT 1343 HOURS INDICATION- Shortness of air, nausea FINDINGS- The heart size is normal. There is no pneumothorax or pleural fluid collection. The lungs are free of focal opacities. DT- 12/03/2013 DE- 12/03/2013 Kennel Manager Dog Track- UMA MENDEZ Reading Radiologist- AARON MEDINA Releasing Radiologist- AARON MEDINA Released Date Time- 12/03/13 1620 Read By AARON MEDINA Released By AARON MEDINA Lipase: (KAYLAN: 12/03/2013 13:55)( [facility] 12/03/2013 14:21) Final results Test Result Flag Units (Reference) Lipase 24 U/L (6-52) Amylase: (KAYLAN: 12/03/2013 13:55)( [facility] 12/03/2013 14:21) Final results Test Result Flag Units (Reference) Amylase 26 Units/L (20-104) BNP (Natriuretic Peptide): (KAYLAN: 12/03/2013 13:55)( [facility] 12/03/2013 14:28) Final results Test Result Flag Units (Reference) BNP 18 pg/mL (0-100) PTT: (KAYLAN: 12/03/2013 13:55)( [facility] 12/03/2013 14:20) Final results Test Result Flag Units (Reference) PTT 26 Seconds (24-31) PTT = The equivalent PTT values for the therapeutic range of heparinlevels at 0.3 to 0.5 U/ml are 45 to 60 seconds.PTT = The equivalent PTT values for the therapeutic range of heparinlevels at 0.3 to 0.5 U/ml are 45 to 60 seconds. PT with INR: (KAYLAN: 12/03/2013 13:55)( [facility] 12/03/2013 14:20) Final results Test Result Flag Units (Reference) Protime 10.7 Seconds (9.6-11.5) INR 1.00 Therapeutic Ranges for INR:2.0-3.0 (PT 20-30) 2.5-3.5 (PT 25-34) CMP: (KAYLAN: 12/03/2013 13:55)( [facility] 12/03/2013 14:21) Final results Test Result [...] CBC w Auto Diff: (KAYLAN: 12/03/2013 13:55)( [facility] 12/03/2013 14:12) Final results Test Result Flag Units (Reference) WBC 6.56 K/mcL (3.50-10.80) RBC 4.24 M/mcL (3.89-5.14) Hemoglobin 13.7 g/dL (11.5-15.5) Hematocrit 39.6 % (34.5-44.0) MCV 93.4 fL (80.0-99.0) MCH 32.3 H pg (27.0-31.0) MCHC 34.6 g/dL (32.0-36.0) RDWCV 13.5 % (11.3-14.5) Platelet 333 K/mcL (150-450) Abs Neutrophil 3.56 K/mcL (1.50-8.30) Abs Lymph 2.25 K/mcL (0.60-4.80) Abs [place] 0.62 K/mcL (0.00-1.00) Abs Eos 0.11 K/mcL [...] Troponin I 0.00 0.00 - 0.60 ng/mL [facility] Comment: Different methodologies are used for cardiac testing between the ED and main laboratory. Refer to the appropriate reference range for interpretation. Blood specimen (specimen) 12/03/2013 3:59 PM EST Narrative [facility] - 12/03/2013 4:15 PM EST Specimen Type: Blood Historical Provider MD POINT OF CARE TEST ORDERA BLES Final Result Performing Organization Address [facility] Co de Phone Number [facility] [address] [place] [address], * POCT Troponin, Rapid (12/03/2013 2:08 PM EST) Troponin I 0.00 0.00 - 0.60 ng/mL [facility] Comment: Different methodologies are used for cardiac testing between the ED and main laboratory. Refer to the appropriate reference range for interpretation. Blood specimen (specimen) 12/03/2013 2:08 PM EST Narrative [facility] - 12/03/2013 2:25 PM EST Specimen Type: Blood Historical Provider MD POINT OF CARE TEST ORDERA BLES Final Result Performing Organization Address [facility]/ZIP Co de Phone Number [facility] [address] [place] [address], * XR chest 1 vw (12/03/2013 2:03 PM EST) Anatomical Region Laterality Modality Body N/A Radiographic Tammie ging 12/03/2013 2:03 PM EST Narrative 12/03/2013 4:02 PM EST AP PORTABLE ERECT CHEST 12/03/2013 AT 1343 HOURS INDICATION: Shortness of air, nausea FINDINGS: The heart size is normal. There is no pneumothorax or pleural fluid collection. The lungs are free of focal opacities. DE: 12/03/2013 Kennel Manager Dog Trackleyda MEDINA Releasing Pily MEDINA Released Date Time- [...] Quant <0.19 0.00 - 0.50 mg/L FEU [facility] Comment: DF by IF @ 12/03/2013 15:41 Negative predictive value for exclusion of venous thromboembolism: < or = 0.5 mg/L (FEU) Blood specimen (specimen) 12/03/2013 1:55 PM EST [facility] - 12/03/2013 3:42 PM EST Specimen Type: Blood Nicholas Esquivel MD LAB BLOOD ORDERABLES Chika l Result Performing Organization Address [facility]/State/ZIP Co de Phone Number [facility] [address] [place] [address], * Lipase (12/03/2013 1:55 PM EST) Lipase 24 6 - 52 U/L [facility] Blood specimen (specimen) 12/03/2013 1:55 PM EST [facility] - 12/03/2013 2:21 PM EST Specimen Type: Blood us Albert Mason MD LAB BLOOD ORDERABLES Final Res ult Performing Organization Address [facility] Co de Phone Number [facility] [address] [place] [address], [place] [phone] * Amylase (12/03/2013 1:55 PM EST) Amylase 26 20 - 104 Units/L [facility] Blood specimen (specimen) 12/03/2013 1:55 PM EST [facility] - 12/03/2013 2:21 PM EST Specimen Type: Blood us Albert Mason MD LAB BLOOD ORDERABLES Final Res ult Performing Organization Address [facility] Co de Phone Number [facility] [address] [place] [address], [place] [phone] * BNP (12/03/2013 1:55 PM EST) BNP 18 0 - 100 pg/mL [facility] Blood specimen (specimen) 12/03/2013 1:55 PM EST [facility] - 12/03/2013 2:28 PM EST Specimen Type: Blood Albert Mason MD LAB BLOOD ORDERABLES Final Res ult Performing Organization Address [facility] de Phone Number [facility] [address] [place] [address], * APTT (12/03/2013 1:55 PM EST) PTT [...] Blood specimen (specimen) 12/03/2013 1:55 PM EST [facility] - 12/03/2013 2:20 PM EST Specimen Type: Blood us Albert Mason MD LAB BLOOD ORDERABLES Final Res ult Performing Organization Address [facility] de Phone Number [facility] [address] [place] [address], * Protime-INR (12/03/2013 1:55 PM EST) Protime 10.7 9.6 - 11.5 Seconds [facility] INR 1.00 [facility] Comment: US by IF @ 12/03/2013 14:20 Therapeutic Ranges for INR: 2.0-3.0 (PT 20-30) 2.5-3.5 (PT 25-34) Blood specimen (specimen) 12/03/2013 1:55 PM EST Narrative [facility] - 12/03/2013 2:20 PM EST Specimen Type: Blood us Albert Mason MD LAB BLOOD ORDERABLES Final Res ult [facility] [address] [place] [address], * Comprehensive metabolic panel (12/03/2013 1:55 PM EST) Glucose 92 70 - 100 mg/dL [facility] BUN 12 6 - 20 mg/dL [facility] Creatinine 0.7 0.6 - 1.3 mg/dL [facility] Sodium 137 136 - 145 mmol/L [facility] Potassium 3.7 3.4 - 5.4 mmol/L [facility] Chloride 105 98 - 107 mmol/L [facility] CO2 26 20 - 31 mmol/L [facility] Calcium 9.4 8.7 - 10.4 mg/dL [facility] Alkaline Phosphatase 69 25 - 100 Units/L [facility] AST (SGOT) 13 8 - 33 Units/L [facility] ALT (SGPT) 18 7 - 40 Units/L [facility] Total Bilirubin 0.5 0.3 - 1.2 mg/dL [facility] Total Protein 7.4 6.4 - 8.3 g/dL [facility] Albumin 4.2 3.4 - 4.8 g/dL [facility] eGFR 101 ml/min/1.7 32 [facility] Comment: DF by IF @ 12/03/2013 14:21 [employer] Guidelines Stage Description GFR 1 Normal or High 90+ 2 Mild decrease 60-89 3 Moderate decrease 30-59 4 Severe decrease 15-29 5 Kidney failure <15 Anion Gap 6 3 - 11 mmol/L [facility] Blood specimen (specimen) 12/03/2013 1:55 PM EST Narrative [facility] - 12/03/2013 2:21 PM EST Specimen Type: Blood us Albert Mason MD LAB BLOOD ORDERABLES Final Res ult [facility] [address] [place] [address], * (ABNORMAL) CBC and Differential (12/03/2013 1:55 PM EST) WBC 6.56 3.50 - 10.80 K/[facility] RBC 4.24 3.89 - 5.14 /[facility] Hemoglobin 13.7 11.5 - 15.5 g/dL [...] [facility] Platelets 333 150 - 450 [facility] Neutrophils Absolute 3.56 1.50 - 8.30 [facility] Lymphocytes Absolute 2.25 0.60 - 4.80 [facility] Monocytes Absolute 0.62 0.00 - 1.00 [facility] Eosinophils Absolute 0.11 0.10 - 0.30 [facility] Basophils Absolute 0.01 0.00 - 0.20 [facility] Neutrophil Rel % 54.1 41.0 - 71.0 % [facility] Lymphocyte Rel % 34.3 24.0 - 44.0 % [facility] Monocyte Rel % 9.5 0.0 - 12.0 % [facility] Eosinophil Rel % 1.7 0.0 - 3.0 % [facility] Basophil Rel % 0.2 0.0 - 1.0 % [facility] Immature Granulocyte Rel % 0.2 0.0 - 0.6 % [facility] Blood specimen (specimen) 12/03/2013 1:55 PM EST Narrative [facility] - 12/03/2013 2:12 PM EST Specimen Type: Blood us Albert Mason MD LAB BLOOD ORDERABLES Final Res ult [facility] [address] [place] [address], * SCANNED EKG (12/03/2013) [facility] New Onbase ECG ORDERABLES Final Result documented in this encounter Visit Diagnoses Not on filedocumented in this encounter Additional Health Concerns Infection Onset Date Last Indicated Resolved Time COVID Screen (preop/placement) 07/13/2021 07/13/2021 07/13/2021 1:51 PM EDT documented as of this encounter Care Teams Restaurant Delivery Driver Relationship Specialty Start Date End Date Laura Cobian [address] [place] [address] PCP - General Nurse Practitioner 11/23/23 documented as of this encounter
== END 2025-08-20 23:59 | disposition home or self-care (01) ==
LOC: RT 15:29
PROVIDERS: PCP Nurse Practitioner; Visit Provider Internal Medicine
DX: I49.1 Atrial premature depolarization (principal); I49.3 Ventricular premature depolarization
CPT/HCPCS: 93270

== ENCOUNTER 2025-10-21 11:52 | Day surgery (SDC) | payer OTHER, SELFPAY ==
[2025-10-21] VITALS (12 sets, daily range): BP systolic 106–158; BP diastolic 54–102; PULSE 60–127; RESP 16–18; TEMP 37; O2SAT 93–98; BMI 38.5
--- NOTE | 2025-10-21 07:13 | IR_ITS ---
APPROVED REPORT Patient Location: Outpatient PROCEDURES Left heart catheterization Left ventriculogram Selective coronary angiogram Intravascular ultrasound to the LAD INDICATION Coronary artery disease, Worsening angina pectoris, Abnormal Myoview Informed consent was obtained prior to the procedure. COMPLICATIONS NONE Estimated Blood Loss: LESS THAN 10 ML TECHNIQUE One percent lidocaine used to anesthetize the right anterior aspect of the wrist. The right radial artery was accessed via the Seldinger technique. A 6 Uzbek sheath was placed in the right radial artery. 2.5 mg of Verapamil, 800 mcg of nitroglycerin, 1mg Lidocaine and 5000 U Heparin were given through the arterial sheath. The JL3 catheter was also used to perform left heart catheterization, left ventriculogram and selective coronary angiogram. At the end the diagnostic angiogram there was angiographic ambiguity and haziness in the proximal LAD proximal to the stent and distal to the stent therefore therapeutic Was administered giving a therapeutic ACT and a Choice PT extra-support wire was placed down the LAD followed by intravascular ultrasound. Intravascular ultrasound probe showed 30 to 40% plaque burden proximal to the stents with excellent expansion of the stents with good proximal distal transitioning. Distal to the stent there was additional 30 to 40% plaque burden. Given this did not meet anatomic or hemodynamic criteria the apparatus was removed the sheath was removed and hemostasis was achieved using TR banding patient was transferred to the postop boarding in stable condition ANGIOGRAPHIC RESULTS The left main artery Normal The left anterior descending artery Has proximal hazy angiographic ambiguity proximal and distal to the stent. This proved to be 30 to 40% stenosed The circumflex artery Massively large dominant and normal The right coronary artery Vestigial normal The LEON ventriculogram reveals Normal 65 to 70% The left ventricular end-diastolic pressure Severely elevated at 40 mmHg IMPRESSION Patent coronary arteries as described above with mild to moderate proximal and mid LAD disease both proximal and distal to the proximal LAD stent Hyperdynamic ventricle with severely elevated LVEDP PLAN 1. Patient advised to discontinue carbonated products of which she is apparently drinking copious amounts 2. Medical management for coronary artery disease 3. Patient's symptoms almost certainly stems from HFpEF. 4. If symptoms persist and are recalcitrant to medical management consideration for Cordella should be considered Electronically signed by : Víctor Reyes MD 10/21/2025 17:34:38
[2025-10-21 12:10] LABS: Hematocrit 38.6 % (37.0-47.0); Hemoglobin 13.0 g/dL (12.2-16.2); Immature Granulocytes % 0.2 %; Mean Corpuscular HGB Conc 33.7 g/dL (31.8-35.4); Mean Corpuscular Hemoglobin 30.3 pg (27.0-31.2); Mean Corpuscular Volume 90.0 fl (81-99); Nucleated Red Blood Cells % 0 %; Platelet Count 350 K/mm3 (142-424); Red Blood Count 4.29 M/mm3 (4.20-5.40); Red Cell Distribution Width-SD 43.3 fL; White Blood Count 5.9 K/mm3 (4.8-10.8)
[2025-10-21 12:14] LABS: Chloride 99 mmol/L (98-107); Sodium 141 mmol/L (136-145)
[2025-10-21 12:15] LABS: Potassium 4.1 mmoL/L (3.5-5.1)
[2025-10-21 12:18] LABS: Anion Gap 18.1 mEq/L (5-15); Blood Urea Nitrogen 21 mg/dl (7-17); Calcium 9.2 mg/dl (8.4-10.2); Carbon Dioxide 28 mmol/L (22.0-30.0); Creatinine Clearance Estimated 102 mL/min (50-200); Creatinine,Serum 0.90 mg/dl (0.52-1.04); Estimated Glomerular Filt Rate 66 ml/min (>60); GFR (African American) 80 ML/MIN (>60); Glucose 157 mg/dl (74-100)
[2025-10-21] MEDS: 0.9 % SODIUM CHLORIDE 500 ML 25 ML IV (14:49)
[2025-10-21] MEDS: NITROGLYCERIN 800MCG/8ML SYR (CATH LAB) 800 MCG IA (14:49)
[2025-10-21] MEDS: LIDOCAINE 1% 10ML MDV 10 ML IJ (14:49)
[2025-10-21] MEDS: HEPARIN 1,000 UNITS/500ML NS (CATH LAB) 3000 UNIT IV (14:49)
[2025-10-21] MEDS: HEPARIN 1,000 UNITS/ML 10ML VIAL (CATH LAB) 5000 UNIT IV ×2 (14:50→15:07)
[2025-10-21] MEDS: VERAPAMIL 2.5MG/ML 2ML VIAL 2.5 MG IV (14:50)
[2025-10-21] MEDS: FENTANYL 100MCG/2ML VIAL 50 MCG IV (15:06)
[2025-10-21] MEDS: MIDAZOLAM HCL 1MG/ML 5ML VIAL 1 MG IV (15:06)
== END 2025-10-21 17:57 | disposition home or self-care (01) ==
LOC: CATHLAB 11:53
PROVIDERS: PCP Nurse Practitioner; Visit Provider Internal Medicine
PROC: 4A023N7 Measurement of Cardiac Sampling and Pressure, Left Heart, Percutaneous Approach (ICD-10-PCS; CPT 93452; principal; 2025-10-21 15:30)
DX: I25.118 Atherosclerotic heart disease of native coronary artery with other forms of angina pectoris (principal); R94.31 Abnormal electrocardiogram [ECG] [EKG]; I10 Essential (primary) hypertension; E78.5 Hyperlipidemia, unspecified; K21.9 Gastro-esophageal reflux disease without esophagitis; R42 Dizziness and giddiness; E66.9 Obesity, unspecified; Z68.38 Body mass index [BMI] 38.0-38.9, adult; Z95.5 Presence of coronary angioplasty implant and graft; Z85.43 Personal history of malignant neoplasm of ovary; Z87.891 Personal history of nicotine dependence; Z79.82 Long term (current) use of aspirin; Z79.01 Long term (current) use of anticoagulants; Z79.899 Other long term (current) drug therapy; Z79.84 Long term (current) use of oral hypoglycemic drugs; Z88.5 Allergy status to narcotic agent; Z88.2 Allergy status to sulfonamides; Z88.8 Allergy status to other drugs, medicaments and biological substances; Z82.49 Family history of ischemic heart disease and other diseases of the circulatory system
CPT/HCPCS: 36415; 80048; 85025; 92978; 93458; 99152; C1725; C1769; C1887; J1200; J1644; J2003; J3010; J7040; Q9967

== ENCOUNTER 2025-11-16 10:01 | Day surgery (SDC) | payer OTHER, SELFPAY ==
--- NOTE | 2025-09-09 07:15 | EXP.HP ---
History of Present Illness *Admission Date: 09/10/25 *History of present illness: Mrs. Jeronimo is a 50-year-old female who is here for diagnostic EGD secondary to noncardiac chest pain/esophageal chest pain. She has had multiple visits to the ED with chest pain and each time she has a negative cardiac evaluation. She has had prior coronary stent placement and is on Plavix. She continues to get epigastric burning and has been on pantoprazole and famotidine. She also reports a lot of bloating and belching. She continues to have heartburn and reflux. She reports nausea and early satiety without vomiting. She did have an EGD with in in August 2023 and had nonerosive GERD with moderate esophageal dysmotility and small 1 to 2 cm hiatal hernia. She also had bile reflux gastropathy. Her C13 sucrose breath testing was normal. She also had pancreatic fecal elastase testing which was less than 50 mcg consistent with marked exocrine pancreatic insufficiency. She has been on 2 Creon with meals. She did switch from pantoprazole to esomeprazole with the addition of sucralfate. The examination is deemed medically necessary for diagnostic EGD. The patient has been seen, interviewed and examined prior to the procedure by both myself and the anesthesia provider. [facility] Disclaimer: The information contained in this section may have been updated after the patient was seen, as this information can be updated by other users. 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, 2001, status post laser surgeries Brain fog Known side effect of topiramate History of nephrolithiasis Least 3?5 kidney stones, recommend avoiding topiramate Family history of brain aneurysm Both mother and paternal grandfather, patient denies prior aneurysm screening Carpal tunnel syndrome of left wrist GERD (gastroesophageal reflux disease) Hypoglycemia Cervical cancer HISTORY OF Ovarian cancer HISTORY OF Hypertension Surgical History Status post myringotomy with tube placement of both ears History of cardiac cath H/O LEEP x3 History of x2 Family History Other Family history of diabetes mellitus type II Family history of hyperlipidemia Family history of hypertension Hx of CABG Social History Smoking Status: Former smoker smoking status stop date: Oct 2023 alcohol intake: never substance use type: denies use current occupational status: unemployed Travel in the last 8 weeks?: None household members: significant other housing: house marital status: single caffeine: Yes Other Medical History Have you received the Flu Vaccine for this season: No Have you received the Pneumonia Vaccine: No Review of Systems Review of Systems Review of systems (narrative): Negative *Cardiovascular Comments: Negative *Gastrointestinal Comments: Negative *Genitourinary Comments: Negative *Musculoskeletal Comments: Negative *Neurologic Comments: Negative Meds Home Medications and Allergies Home Medications ?Medication ?Instructions ?Recorded ?Confirmed ?Type glipizide 5 mg tablet, extended 5 mg PO DAILY 07/09/24 08/20/25 History release 24 hr isosorbide mononitrate 30 mg 30 mg PO DAILY #90 tabs 01/19/25 08/20/25 Rx tablet,extended release 24 hr atorvastatin 80 mg tablet 80 mg PO DAILY #90 tabs 01/21/25 08/20/25 Rx clopidogrel 75 mg tablet 75 mg PO DAILY #90 tabs 01/21/25 08/20/25 Rx blood sugar diagnostic (FreeStyle #10 ea 02/23/25 08/20/25 History Lite Strips) nitroglycerin 0.4 mg sublingual 0.4 mg sublingual Q5-15M PRN chest 02/23/25 08/20/25 Rx tablet pain #30 tabs hydroxyzine pamoate 50 mg capsule 50 mg PO TIDP PRN Anxiety 03/10/25 08/20/25 History spironolactone 25 mg tablet 25 mg PO BID #60 tabs 03/30/25 08/20/25 Rx aspirin 81 mg tablet,delayed 81 mg PO DAILY 90 days #90 tabs 05/25/25 08/20/25 Rx release hydrochlorothiazide 25 mg tablet 25 mg PO BID 90 days #180 tabs 05/25/25 08/20/25 Rx metoprolol succinate 100 mg 100 mg PO DAILY #90 tabs 05/25/25 08/20/25 Rx tablet,extended release 24 hr sucralfate 1 gram tablet See Rx Instructions .Route 06/11/25 08/20/25 Rx .COMPLEX #90 tabs esomeprazole magnesium 40 mg 40 mg PO DAILY #90 caps 08/04/25 08/20/25 Rx capsule,delayed release (Nexium) hydralazine 25 mg tablet 50 mg PO DAILY 08/04/25 08/20/25 History ctsswd-nagyyhtv-qqyzfil 2 cap PO .COMPLEX #720 caps 08/04/25 08/20/25 Rx (pork)36,000-114,000-180k unit capsule,del rel (Creon) magnesium citrate 150 ml PO DAILY 08/04/25 08/20/25 History prucalopride 2 mg tablet 2 mg PO DAILY #90 tabs 08/04/25 08/20/25 Rx (Motegrity) sennosides 8.6 mg capsule (senna) 8.6 mg PO BID 08/04/25 08/20/25 History amlodipine 5 mg tablet (Norvasc) 5 mg PO DAILY #30 tabs 08/20/25 08/20/25 Rx ranolazine 500 mg tablet,extended 500 mg PO BID #60 tabs 08/20/25 08/20/25 Rx release,12 hr New Prescriptions to Start Prescriptions: Allergies Allergy/AdvReac Type Severity Reaction Status Date / Time lisinopril Allergy Hives Verified 08/20/25 14:56 oxycodone (From Percocet) Allergy Hives Verified 08/20/25 14:56 Sulfa (Sulfonamide Allergy Hives Verified 08/20/25 14:56 Antibiotics) Exam *Routine HEENT Exam Head: Present normocephalic Eye: Present EOMI and PERRL ENT: Present mucous membranes moist *Routine Neck Exam Neck: Present supple *Routine Respiratory Exam Respiratory: Present CTA bilaterally *Routine Cardiovascular Exam Cardiovascular: Present RRR *Routine Abdominal Exam Abdominal: Present soft and normoactive bowel sounds; Absent tenderness *Routine Rectal Exam Rectal:: deferred *Routine Genitalia Exam Genitalia:: deferred *Routine Extremities Exam Extremities: Absent cyanosis, clubbing or edema *Routine Skin Exam Skin: Present warm; Absent rash *Routine Neurological Exam Neurological: Present alert and oriented X3 Assessment and Plan *Assessment and plan (1) Chronic epigastric pain: Status: Acute Category: Medical Code(s): R10.13 - Epigastric pain; G89.29 - Other chronic pain (2) Non-cardiac chest pain: Status: Acute Category: Medical Code(s): R07.89 - Other chest pain (3) Exocrine pancreatic insufficiency: Status: Acute Category: Medical Code(s): K86.81 - Exocrine pancreatic insufficiency (4) Bloating: Status: Acute Category: Medical Code(s): R14.0 - Abdominal distension (gaseous) (5) Heartburn: Status: Acute Category: Medical Code(s): R12 - Heartburn (6) Functional dyspepsia: Status: Acute Category: Medical Code(s): K30 - Functional dyspepsia Plan A/P: 1. Noncardiac chest pain with persistent heartburn, reflux, dyspepsia and bloating is the preprocedural diagnosis. The patient will be anesthetized/sedated using MAC sedation. The patient has been seen and examined. Cardiac and lung assessment prior to the examination is stable. Proceed with planned diagnostic EGD.
--- NOTE | 2025-11-10 07:17 | EXP.HP ---
History of Present Illness *Admission Date: 11/12/25 *History of present illness: Mrs. Jeronimo is a 50-year-old female who is here for diagnostic EGD. The patient has had multiple trips to the ED with complaints of chest pain. This is deemed noncardiac chest pain and she had a complete cardiac evaluation that was negative. The patient did have a coronary stent placed a couple of years ago. In the ED, she has been given a GI cocktail with some resolution of the chest pain. The patient has noted some burning epigastric abdominal discomfort which she has associated with Plavix. She also had a week of dark tarry stools. The patient has currently been on esomeprazole and also famotidine. She does have a lot of bloating, belching and gassiness. She also reports heartburn and reflux. She is struggling with constipation and incomplete bowel evacuation. She has had some nausea without vomiting. She did have an EGD with me in August 2023 and had nonerosive GERD with moderate esophageal dysmotility and small 1 to 2 cm hiatal hernia. She also had bile reflux with reactive gastropathy. She was found to have EPI with fecal elastase of less than 50 mcg/g. She has been on Creon with her meals and increase this to 2 capsules but still continues to struggle with some bloating. Her C13 sucrose breath testing was normal. I attempted to have her begin [employer] but this was not covered by insurance. The examination is deemed medically necessary for diagnostic EGD. The patient has been seen, interviewed and examined prior to the procedure by both myself and the anesthesia provider. [facility] Disclaimer: The information contained in this section may have been updated after the patient was seen, as this information can be updated by other users. 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, 2001, status post laser surgeries Brain fog Known side effect of topiramate History of nephrolithiasis Least 3?5 kidney stones, recommend avoiding topiramate Family history of brain aneurysm Both mother and paternal grandfather, patient denies prior aneurysm screening Carpal tunnel syndrome of left wrist GERD (gastroesophageal reflux disease) Hypoglycemia Cervical cancer HISTORY OF Ovarian cancer HISTORY OF Hypertension Surgical History Status post myringotomy with tube placement of both ears History of cardiac cath H/O LEEP x3 History of x2 Family History Other Family history of diabetes mellitus type II Family history of hyperlipidemia Family history of hypertension Hx of CABG Social History Smoking Status: Former smoker smoking status stop date: Oct 2023 alcohol intake: never substance use type: denies use current occupational status: unemployed Travel in the last 8 weeks?: None household members: significant other housing: house marital status: single caffeine: Yes Have you lived/traveled outside [place] in past 30 days?: No Contact w/someone who lives/traveled outside US past 30 days?: No Exposure to someone with infectious disease in past 14 days?: No Do you have a fever (greater than 100.4 F or 38 C)?: No Have you tested positive for COVID-19?: No Exposed to someone with COVID-19 in past 14 days?: No Do you have a sore throat?: No Do you have a cough?: No Do you have shortness of breath?: No Do you have a headache?: No Do you have any weakness?: No Are you experiencing any nausea/vomitting?: No Do you have any diarrhea?: No Are you experiencing any unusual bleeding?: No Do you have any muscle aches/pain?: No Do you have any abdominal pain?: No Are you experiencing loss of taste or smell?: No Other Medical History Have you received the Flu Vaccine for this season: No Have you received the Pneumonia Vaccine: No Review of Systems Review of Systems Review of systems (narrative): Negative *Cardiovascular Comments: Negative *Gastrointestinal Comments: Negative *Genitourinary Comments: Negative *Musculoskeletal Comments: Negative *Neurologic Comments: Negative Meds Home Medications and Allergies Home Medications ?Medication ?Instructions ?Recorded ?Confirmed ?Type glipizide 5 mg tablet, extended 5 mg PO DAILY 07/09/24 11/03/25 History release 24 hr blood sugar diagnostic (Wendie #10 ea 02/23/25 11/03/25 History Lite Strips) hydroxyzine pamoate 50 mg capsule 50 mg PO TIDP PRN Anxiety 03/10/25 11/03/25 History spironolactone 25 mg tablet 25 mg PO BID #60 tabs 03/30/25 11/03/25 Rx sucralfate 1 gram tablet See Rx Instructions .Route 06/11/25 11/03/25 Rx .COMPLEX #90 tabs magnesium citrate 150 ml PO DAILY 08/04/25 11/03/25 History sennosides 8.6 mg capsule (senna) 8.6 mg PO BID 08/04/25 11/03/25 History metoprolol succinate 100 mg See Rx Instructions PO BID 90 days 09/16/25 11/03/25 Rx tablet,extended release 24 hr #180 tabs ranolazine 1,000 mg 1,000 mg PO BID 10/07/25 11/03/25 History tablet,extended release,12 hr aspirin 81 mg tablet,delayed 81 mg PO DAILY 90 days #90 tabs 10/14/25 11/03/25 Rx release atorvastatin 80 mg tablet 80 mg PO DAILY #90 tabs 10/14/25 11/03/25 Rx clopidogrel 75 mg tablet 75 mg PO DAILY #90 tabs 10/14/25 11/03/25 Rx esomeprazole magnesium 40 mg 40 mg PO DAILY #90 caps 10/14/25 11/03/25 Rx capsule,delayed release (Nexium) hydralazine 25 mg tablet 50 mg (2 x 25 mg) PO DAILY 90 days 10/14/25 11/03/25 Rx #180 tabs hydrochlorothiazide 25 mg tablet 25 mg PO BID 90 days #180 tabs 10/14/25 11/03/25 Rx [id number] 2 cap PO .COMPLEX #720 caps 10/14/25 11/03/25 Rx (pork)36,000-114,000-180k unit capsule,del rel (Creon) isosorbide mononitrate 30 mg 30 mg PO DAILY #90 tabs 10/15/25 11/03/25 Rx tablet,extended release 24 hr nitroglycerin 0.4 mg sublingual 0.4 mg sublingual Q5-15M for 10/15/25 11/03/25 Rx tablet angina #25 tabs amlodipine 2.5 mg tablet 2.5 mg PO DAILY 11/03/25 11/03/25 History buspirone 10 mg tablet 10 mg PO QHS #90 tabs 11/03/25 11/03/25 Rx New Prescriptions to Start Prescriptions: Allergies Allergy/AdvReac Type Severity Reaction Status Date / Time lisinopril Allergy Hives Verified 11/03/25 14:55 oxycodone (From Percocet) Allergy Hives Verified 11/03/25 14:55 Sulfa (Sulfonamide Allergy Hives Verified 11/03/25 14:55 Antibiotics) Exam *Routine HEENT Exam Head: Present normocephalic Eye: Present EOMI and PERRL ENT: Present mucous membranes moist *Routine Neck Exam Neck: Present supple *Routine Respiratory Exam Respiratory: Present CTA bilaterally *Routine Cardiovascular Exam Cardiovascular: Present RRR *Routine Abdominal Exam Abdominal: Present soft and normoactive bowel sounds; Absent tenderness *Routine Rectal Exam Rectal:: deferred *Routine Genitalia Exam Genitalia:: deferred *Routine Extremities Exam Extremities: Absent cyanosis, clubbing or edema *Routine Skin Exam Skin: Present warm; Absent rash *Routine Neurological Exam Neurological: Present alert and oriented X3 Assessment and Plan *Assessment and plan (1) Functional dyspepsia: Status: Acute Category: Medical Code(s): K30 - Functional dyspepsia (2) Heartburn: Status: Acute Category: Medical Code(s): R12 - Heartburn (3) Non-cardiac chest pain: Status: Acute Category: Medical Code(s): R07.89 - Other chest pain (4) Chronic epigastric pain: Status: Acute Category: Medical Code(s): R10.13 - Epigastric pain; G89.29 - Other chronic pain (5) Bloating: Status: Acute Category: Medical Code(s): R14.0 - Abdominal distension (gaseous) (6) Constipation: Status: Acute Category: Medical Code(s): K59.00 - Constipation, unspecified Plan A/P: 1. Noncardiac chest pain with history of heartburn, chronic epigastric abdominal pain/dyspepsia and bloating is the preprocedural diagnosis. The patient will be anesthetized/sedated using MAC sedation. The patient has been seen and examined. Cardiac and lung assessment prior to the examination is stable. Proceed with planned diagnostic EGD.
--- NOTE | 2025-11-16 07:05 | EXP.HP ---
History of Present Illness *Admission Date: 11/16/25 *History of present illness: Mrs. Jeronimo is a 50-year-old female who is here for diagnostic EGD secondary to noncardiac chest pain/esophageal chest pain. The patient has been to the ED multiple times and had a negative cardiac workup. She did get a GI cocktail and had resolution of the chest pain. She does report burning epigastric abdominal pain and some dark tarry stools. She has been on Plavix. She also has been on famotidine and esomeprazole. She reports a lot of bloating, gassiness, belching, reflux and heartburn. She has struggled with chronic constipation with incomplete bowel evacuation. She does have some nausea without vomiting. She did have an EGD with me in August 2023 and had nonerosive GERD with moderate esophageal dysmotility. Her sucrose C 13 breath testing was normal. Her fecal elastase testing was less than 50 mcg/g consistent with EPI (exocrine pancreatic insufficiency) and she has been on Creon 2 capsules with meals and 1 capsule with snacks. I have recommended pelvic floor physical therapy which she failed to complete. Her insurance would not cover [employer]. The examination is deemed medically necessary for diagnostic EGD. The patient has been seen, interviewed and examined prior to the procedure by both myself and the anesthesia provider. [facility] Disclaimer: The information contained in this section may have been updated after the patient was seen, as this information can be updated by other users. 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, 2001, status post laser surgeries Brain fog Known side effect of topiramate History of nephrolithiasis Least 3?5 kidney stones, recommend avoiding topiramate Family history of brain aneurysm Both mother and paternal grandfather, patient denies prior aneurysm screening Carpal tunnel syndrome of left wrist GERD (gastroesophageal reflux disease) Hypoglycemia Cervical cancer HISTORY OF Ovarian cancer HISTORY OF Hypertension Surgical History Status post myringotomy with tube placement of both ears History of cardiac cath H/O LEEP x3 History of x2 Family History Other Family history of diabetes mellitus type II Family history of hyperlipidemia Family history of hypertension Hx of CABG Social History Smoking Status: Former smoker smoking status stop date: Oct 2023 alcohol intake: never substance use type: denies use current occupational status: unemployed Travel in the last 8 weeks?: None household members: significant other housing: house marital status: single caffeine: Yes Other Medical History Have you received the Flu Vaccine for this season: No Have you received the Pneumonia Vaccine: No Review of Systems Review of Systems Review of systems (narrative): Negative *Cardiovascular Comments: Negative *Gastrointestinal Comments: Negative *Genitourinary Comments: Negative *Musculoskeletal Comments: Negative *Neurologic Comments: Negative Meds Home Medications and Allergies Home Medications ?Medication ?Instructions ?Recorded ?Confirmed ?Type glipizide 5 mg tablet, extended 5 mg PO DAILY 07/09/24 11/03/25 History release 24 hr blood sugar diagnostic (FreeStyle #10 ea 02/23/25 11/03/25 History Lite Strips) hydroxyzine pamoate 50 mg capsule 50 mg PO TIDP PRN Anxiety 03/10/25 11/03/25 History sucralfate 1 gram tablet See Rx Instructions .Route 06/11/25 11/03/25 Rx .COMPLEX #90 tabs magnesium citrate 150 ml PO DAILY 08/04/25 11/03/25 History sennosides 8.6 mg capsule (senna) 8.6 mg PO BID 08/04/25 11/03/25 History metoprolol succinate 100 mg See Rx Instructions PO BID 90 days 09/16/25 11/03/25 Rx tablet,extended release 24 hr #180 tabs ranolazine 1,000 mg 1,000 mg PO BID 10/07/25 11/03/25 History tablet,extended release,12 hr aspirin 81 mg tablet,delayed 81 mg PO DAILY 90 days #90 tabs 10/14/25 11/03/25 Rx release atorvastatin 80 mg tablet 80 mg PO DAILY #90 tabs 10/14/25 11/03/25 Rx clopidogrel 75 mg tablet 75 mg PO DAILY #90 tabs 10/14/25 11/03/25 Rx esomeprazole magnesium 40 mg 40 mg PO DAILY #90 caps 10/14/25 11/03/25 Rx capsule,delayed release (Nexium) hydralazine 25 mg tablet 50 mg (2 x 25 mg) PO DAILY 90 days 10/14/25 11/03/25 Rx #180 tabs hydrochlorothiazide 25 mg tablet 25 mg PO BID 90 days #180 tabs 10/14/25 11/03/25 Rx [id number] 2 cap PO .COMPLEX #720 caps 10/14/25 11/03/25 Rx (pork)36,000-114,000-180k unit capsule,del rel (Creon) isosorbide mononitrate 30 mg 30 mg PO DAILY #90 tabs 10/15/25 11/03/25 Rx tablet,extended release 24 hr nitroglycerin 0.4 mg sublingual 0.4 mg sublingual Q5-15M for 10/15/25 11/03/25 Rx tablet angina #25 tabs amlodipine 2.5 mg tablet 2.5 mg PO DAILY 11/03/25 11/03/25 History buspirone 10 mg tablet 10 mg PO QHS #90 tabs 11/03/25 11/03/25 Rx spironolactone 25 mg tablet 25 mg PO BID #60 tabs 11/12/25 Rx New Prescriptions to Start Prescriptions: Allergies Allergy/AdvReac Type Severity Reaction Status Date / Time lisinopril Allergy Hives Verified 11/03/25 14:55 oxycodone (From Percocet) Allergy Hives Verified 11/03/25 14:55 Sulfa (Sulfonamide Allergy Hives Verified 11/03/25 14:55 Antibiotics) Exam *Routine HEENT Exam Head: Present normocephalic Eye: Present EOMI and PERRL ENT: Present mucous membranes moist *Routine Neck Exam Neck: Present supple *Routine Respiratory Exam Respiratory: Present CTA bilaterally *Routine Cardiovascular Exam Cardiovascular: Present RRR *Routine Abdominal Exam Abdominal: Present soft and normoactive bowel sounds; Absent tenderness *Routine Rectal Exam Rectal:: deferred *Routine Genitalia Exam Genitalia:: deferred *Routine Extremities Exam Extremities: Absent cyanosis, clubbing or edema *Routine Skin Exam Skin: Present warm; Absent rash *Routine Neurological Exam Neurological: Present alert and oriented X3 Assessment and Plan *Assessment and plan (1) Functional dyspepsia: Status: Acute Category: Medical Code(s): K30 - Functional dyspepsia (2) Heartburn: Status: Acute Category: Medical Code(s): R12 - Heartburn (3) Non-cardiac chest pain: Status: Acute Category: Medical Code(s): R07.89 - Other chest pain (4) Bloating: Status: Acute Category: Medical Code(s): R14.0 - Abdominal distension (gaseous) Plan A/P: 1. Noncardiac chest pain/esophageal chest pain with heartburn, reflux, bloating and dyspepsia is the preprocedural diagnosis. The patient will be anesthetized/sedated using MAC sedation. The patient has been seen and examined. Cardiac and lung assessment prior to the examination is stable. Proceed with planned diagnostic EGD.
--- NOTE | 2025-11-16 07:10 | P.PCN_ITS ---
[facility] Procedure Note Date: 11/16/25 Procedure Note:: Upper Endoscopy Procedure Report: Esophagogastroduodenoscopy [] Endoscopost: Damon Barajas II, MD Referring Physician: [] Date of Procedure: November 16, 2025 Equipment: Olympus GIF-1100 standard upper endoscope Sedation: MAC sedation Indications: Mrs. Jeronimo is a 50-year-old female who is here for diagnostic EGD secondary to noncardiac chest pain/esophageal chest pain. The patient has been to the ED multiple times and had a negative cardiac workup. She did get a GI cocktail and had resolution of the chest pain. She does report burning epigastric abdominal pain and some dark tarry stools. She has been on Plavix. She also has been on famotidine and esomeprazole. She reports a lot of bloating, gassiness, belching, reflux and heartburn. She has struggled with chronic constipation with incomplete bowel evacuation. She does have some nausea without vomiting. [facility] an [facility] in [facility] and had nonerosive GERD with moderate esophageal dysmotility. Her sucrose C 13 breath testing was normal. Her fecal elastase testing was less than 50 mcg/g consistent with EPI (exocrine pancreatic insufficiency) and she has been on Creon 2 capsules with meals and 1 capsule with snacks. I have recommended pelvic floor physical therapy which she failed to complete. Her insurance would not cover [employer]. The examination is deemed medically necessary for diagnostic EGD. Procedure: Prior to the procedure, a history and physical exam was performed, and patient's medications and allergies were reviewed. The risks, benefits and alternatives of the sedation and procedure were discussed with the patient. All questions were answered and informed consent was obtained. The patient was brought to the procedure room. Patient identification and proposed procedure were verified by the physician and the nurse. The patient was placed in a left lateral decubitus position and the scope was passed under direct vision. Throughout the procedure, the patient's blood pressure, pulse, and oxygen saturations were monitored continuously. The upper GI endoscopy was accomplished without difficulty. The patient tolerated the procedure well. Findings: The scope was passed directly into the upper esophagus and advanced to the third portion of the duodenum. The post bulbar duodenum and duodenal bulb were normal with normal mucosa and conniventes. The scope was withdrawn through a normal duodenal bulb and pylorus into the stomach. []. The scope was then withdrawn into the esophagus. The remainder of the esophageal mucosa was normal. Impression: 1. [] Plan: []
--- NOTE | 2025-11-16 10:21 | EXP.HP ---
History of Present Illness *Admission Date: 11/16/25 *History of present illness: Mrs. Jeronimo is a 50-year-old female who is here for diagnostic EGD secondary to noncardiac chest pain. She has been to the ED multiple times with chest pain and had a negative cardiac evaluation. When she receives a GI cocktail, she has resolution of the chest pain. She does have burning epigastric abdominal discomfort which she associates with Plavix. She was having some dark tarry stools. She does report dyspepsia. She has been on famotidine and esomeprazole. She does report a lot of gassiness, bloating and belching. She has chronic constipation. She did have an EGD with [facility] in August 2023 and had nonerosive GERD with moderate esophageal dysmotility and small hiatal hernia. She also had bile reflux reactive gastropathy. Her sucrose C 13 breath testing was normal. She also had fecal pancreatic elastase testing that showed low at 50 mcg/g and she has been on Creon. Her insurance would not cover [employer] and she does struggle with outlet dysfunction constipation. She failed to do pelvic floor physical therapy. The examination is deemed medically necessary for diagnostic EGD. The patient has been seen, interviewed and examined prior to the procedure by both myself and the anesthesia provider. [facility] Disclaimer: The information contained in this section may have been updated after the patient was seen, as this information can be updated by other users. 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, 2001, status post laser surgeries Brain fog Known side effect of topiramate History of nephrolithiasis Least 3?5 kidney stones, recommend avoiding topiramate Family history of brain aneurysm Both mother and paternal grandfather, patient denies prior aneurysm screening Carpal tunnel syndrome of left wrist GERD (gastroesophageal reflux disease) Hypoglycemia Cervical cancer HISTORY OF Ovarian cancer HISTORY OF Hypertension Surgical History Status post myringotomy with tube placement of both ears History of cardiac cath H/O LEEP x3 History of x2 Family History Other Family history of diabetes mellitus type II Family history of hyperlipidemia Family history of hypertension Hx of CABG Social History Smoking Status: Former smoker smoking status stop date: Oct 2023 alcohol intake: never substance use type: denies use current occupational status: unemployed Travel in the last 8 weeks?: None household members: significant other housing: house marital status: single caffeine: Yes Other Medical History Have you received the Flu Vaccine for this season: No Have you received the Pneumonia Vaccine: No Review of Systems Review of Systems Review of systems (narrative): Negative *Cardiovascular Comments: Negative *Gastrointestinal Comments: Negative *Genitourinary Comments: Negative *Musculoskeletal Comments: Negative *Neurologic Comments: Negative Meds Home Medications and Allergies Home Medications ?Medication ?Instructions ?Recorded ?Confirmed ?Type glipizide 5 mg tablet, extended 5 mg PO DAILY 07/09/24 11/16/25 History release 24 hr blood sugar diagnostic (FreeStyle #10 ea 02/23/25 11/16/25 History Lite Strips) hydroxyzine pamoate 50 mg capsule 50 mg PO TIDP PRN Anxiety 03/10/25 11/16/25 History sucralfate 1 gram tablet See Rx Instructions .Route 06/11/25 11/16/25 Rx .COMPLEX #90 tabs magnesium citrate 150 ml PO DAILY 08/04/25 11/16/25 History sennosides 8.6 mg capsule (senna) 8.6 mg PO BID 08/04/25 11/16/25 History metoprolol succinate 100 mg See Rx Instructions PO BID 90 days 09/16/25 11/16/25 Rx tablet,extended release 24 hr #180 tabs ranolazine 1,000 mg 1,000 mg PO BID 10/07/25 11/16/25 History tablet,extended release,12 hr aspirin 81 mg tablet,delayed 81 mg PO DAILY 90 days #90 tabs 10/14/25 11/16/25 Rx release atorvastatin 80 mg tablet 80 mg PO DAILY #90 tabs 10/14/25 11/16/25 Rx clopidogrel 75 mg tablet 75 mg PO DAILY #90 tabs 10/14/25 11/16/25 Rx esomeprazole magnesium 40 mg 40 mg PO DAILY #90 caps 10/14/25 11/16/25 Rx capsule,delayed release (Nexium) hydralazine 25 mg tablet 50 mg (2 x 25 mg) PO DAILY 90 days 10/14/25 11/16/25 Rx #180 tabs hydrochlorothiazide 25 mg tablet 25 mg PO BID 90 days #180 tabs 10/14/25 11/16/25 Rx [id number] 2 cap PO .COMPLEX #720 caps 10/14/25 11/16/25 Rx (pork)36,000-114,000-180k unit capsule,del rel (Creon) isosorbide mononitrate 30 mg 30 mg PO DAILY #90 tabs 10/15/25 11/16/25 Rx tablet,extended release 24 hr nitroglycerin 0.4 mg sublingual 0.4 mg sublingual Q5-15M for 10/15/25 11/16/25 Rx tablet angina #25 tabs amlodipine 2.5 mg tablet 2.5 mg PO DAILY 11/03/25 11/16/25 History buspirone 10 mg tablet 10 mg PO QHS #90 tabs 11/03/25 11/16/25 Rx spironolactone 25 mg tablet 25 mg PO BID #60 tabs 11/12/25 11/16/25 Rx New Prescriptions to Start Prescriptions: Allergies Allergy/AdvReac Type Severity Reaction Status Date / Time lisinopril Allergy Hives Verified 11/16/25 10:35 oxycodone (From Percocet) Allergy Hives Verified 11/16/25 10:35 Sulfa (Sulfonamide Allergy Hives Verified 11/16/25 10:35 Antibiotics) Exam *Routine HEENT Exam Head: Present normocephalic Eye: Present EOMI and PERRL ENT: Present mucous membranes moist *Routine Neck Exam Neck: Present supple *Routine Respiratory Exam Respiratory: Present CTA bilaterally *Routine Cardiovascular Exam Cardiovascular: Present RRR *Routine Abdominal Exam Abdominal: Present soft and normoactive bowel sounds; Absent tenderness *Routine Rectal Exam Rectal:: deferred *Routine Genitalia Exam Genitalia:: deferred *Routine Extremities Exam Extremities: Absent cyanosis, clubbing or edema *Routine Skin Exam Skin: Present warm; Absent rash *Routine Neurological Exam Neurological: Present alert and oriented X3 Assessment and Plan *Assessment and plan (1) Heartburn: Status: Acute Category: Medical Code(s): R12 - Heartburn (2) Non-cardiac chest pain: Status: Acute Category: Medical Code(s): R07.89 - Other chest pain (3) Functional dyspepsia: Status: Acute Category: Medical Code(s): K30 - Functional dyspepsia (4) GERD (gastroesophageal reflux disease): Status: Acute Category: Medical Code(s): K21.9 - Gastro-esophageal reflux disease without esophagitis Plan A/P: 1. Heartburn, reflux, dyspepsia and noncardiac/esophageal chest pain is the preprocedural diagnosis. The patient will be anesthetized/sedated using MAC sedation. The patient has been seen and examined. Cardiac and lung assessment prior to the examination is stable. Proceed with planned diagnostic EGD.
--- NOTE | 2025-11-16 10:25 | HMH.PROCNOTE ---
[facility] Procedure Note Date: 11/16/25 Time: 12:34 Procedure Note:: Upper Endoscopy Procedure Report: Esophagogastroduodenoscopy with cold biopsies Endoscopost: Damon Barajas II, MD Referring Physician: Carina Cobian PA-C Date of Procedure: November 16, 2025 Equipment: Olympus GIF-1100 standard upper endoscope Sedation: MAC sedation Indications: Mrs. Jeronimo is a 50-year-old female who is here for diagnostic EGD secondary to noncardiac chest pain. She has been to the ED multiple times with chest pain and had a negative cardiac evaluation. When she receives a GI cocktail, she has resolution of the chest pain. She does have burning epigastric abdominal discomfort which she associates with Plavix. She was having some dark tarry stools. She does report dyspepsia. She has been on famotidine and esomeprazole. She does report a lot of gassiness, bloating and belching. She has chronic constipation. She did have an EGD with mi in August 2023 and had nonerosive GERD with moderate esophageal dysmotility and small hiatal hernia. She also had bile reflux reactive gastropathy. Her sucrose C 13 breath testing was normal. She also had fecal pancreatic elastase testing that showed low at 50 mcg/g and she has been on Creon. Her insurance would not cover Motegrity and she does struggle with outlet dysfunction constipation. She failed to do pelvic floor physical therapy. The examination is deemed medically necessary for diagnostic EGD. Procedure: Prior to the procedure, a history and physical exam was performed, and patient's medications and allergies were reviewed. The risks, benefits and alternatives of the sedation and procedure were discussed with the patient. All questions were answered and informed consent was obtained. The patient was brought to the procedure room. Patient identification and proposed procedure were verified by the physician and the nurse. The patient was placed in a left lateral decubitus position and the scope was passed under direct vision. Throughout the procedure, the patient's blood pressure, pulse, and oxygen saturations were monitored continuously. The upper GI endoscopy was accomplished without difficulty. The patient tolerated the procedure well. Findings: The scope was passed directly into the upper esophagus and advanced to the third portion of the duodenum. The post bulbar duodenum and duodenal bulb were normal with normal mucosa and conniventes. 2 cold biopsies were taken from the second portion of the duodenum for the disaccharidase assay. The scope was withdrawn through a normal duodenal bulb and pylorus into the stomach. There was bile reflux with moderate linear reactive gastropathy of the antrum and body of the stomach. The fundus of the stomach was normal. Upon retroflexion there was a 2 cm hiatal hernia. Cold biopsies were taken from the antrum. The scope was then withdrawn into the esophagus. There was no evidence of reflux esophagitis or Gan's. There were tertiary contractions and evidence of mild esophageal dysmotility. The remainder of the esophageal mucosa was normal. Impression: 1. Nonerosive GERD with mild esophageal dysmotility and small 2 cm hiatal hernia 2. Bile reflux with moderate linear reactive gastropathy Plan: I will follow-up the biopsies and the disaccharidase assay. I do feel that her chest pain is secondary to bile reflux with esophageal dysmotility/esophageal dyskinesia (esophageal spasm). We will discuss treatment options.
[2025-11-16 10:39] VITALS: BP 150/99; PULSE 67; RESP 16; TEMP 36.1; O2SAT 98; BMI 38.7
[2025-11-16 10:49] LABS: POC Glucose,Bedside 173 gm/dL (70-110)
[2025-11-16] MEDS: LACTATED RINGERS 1000ML 1,000 ML 50 ML IV (10:52)
--- NOTE | 2025-11-16 11:08 | P.PNANES_ITS ---
[facility] Disclaimer: The information contained in this section may have been updated after the patient was seen, as this information can be updated by other users. 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, 2002, status post laser surgeries Brain fog Known side effect of topiramate History of nephrolithiasis Least 3?5 kidney stones, recommend avoiding topiramate Family history of brain aneurysm Both mother and paternal grandfather, patient denies prior aneurysm screening Carpal tunnel syndrome of left wrist GERD (gastroesophageal reflux disease) Hypoglycemia Cervical cancer HISTORY OF Ovarian cancer HISTORY OF Hypertension Surgical History Status post myringotomy with tube placement of both ears History of cardiac cath H/O LEEP x3 History of x2 Family History Other Family history of diabetes mellitus type II Family history of hyperlipidemia Family history of hypertension Hx of CABG Social History Smoking Status: Former smoker smoking status stop date: Oct 2023 alcohol intake: never substance use type: denies use current occupational status: unemployed Travel in the last 8 weeks?: None household members: significant other housing: house marital status: single caffeine: Yes Have you lived/traveled outside US in past 30 days?: No Contact w/someone who lives/traveled outside US past 30 days?: No Exposure to someone with infectious disease in past 14 days?: No Do you have a fever (greater than 100.4 F or 38 C)?: No Have you tested positive for COVID-19?: No Exposed to someone with COVID-19 in past 14 days?: No Do you have a sore throat?: No Do you have a cough?: No Do you have any weakness?: No Are you experiencing any nausea/vomitting?: Yes Do you have any diarrhea?: No Are you experiencing any unusual bleeding?: No Do you have any muscle aches/pain?: No Do you have any abdominal pain?: No Are you experiencing loss of taste or smell?: No [facility] Anesthesia Checklist Patient Identification Patient Identification: Arm Band and Family Structural Data Admitted From: Home Planned Operative Procedure/s: EGD Consent for Planned Operative Procedure(s) Verified: Yes Verified Documents: Surgical Consent and History and Physical NPO Status Verified Time NPO: 00:00 Additional verifications Patient : No Anesthesia Reactions: No Hx Blood Transfusions: No Blood Transfusion Reaction: No Cephalosporin Allergy: No Previous Colonoscopy: Yes Airway Assessment Mallampati Score:: Class II C-Spine Mobility Assessed: Yes TMJ Mobility Assessed: Yes Dentition: Good Dentition Neurological Assessment Level of Consciousness: Awake, Alert, Appropriate and Follows Commands Hx Seizures: No Numbness or tingling in extremities: No Anesthesia Plan Anesthesia Risk discussed: Yes ASA Class: III Anesthesia Type: MAC Preoperative Comments Pre-Operative Comments: Cardiac stent. NIDDM. 173. Pancreatic insuff.
[2025-11-16 12:40] VITALS: BP 108/74; PULSE 72; RESP 16; TEMP 36.3; O2SAT 97
[2025-11-16 12:50] VITALS: BP 125/71; PULSE 64; RESP 17; TEMP 36.3; O2SAT 99
[2025-11-16 13:00] VITALS: BP 120/92; PULSE 72; RESP 17; TEMP 36.3; O2SAT 96
[2025-11-16 13:10] VITALS: BP 109/78; PULSE 64; RESP 18; TEMP 36.3; O2SAT 100
[2025-11-25 12:54] LABS: Interpretation Notes (.); Lactase 32.93 (>/= 14.0); Maltase 295.03 (>/= 110.0); Palatinase 22.33 (>/= 8.5); Reference Notes (.); Sucrase 80.29 (>/= 25.0)
== END 2025-11-16 13:27 | disposition home or self-care (01) ==
PROVIDERS: PCP Nurse Practitioner; Visit Provider Internal Medicine Gastroenterology
PROC: 0DJ08ZZ Inspection of Upper Intestinal Tract, Via Natural or Artificial Opening Endoscopic (ICD-10-PCS; CPT 43239; principal; 2025-11-16 10:30)
DX: K21.9 Gastro-esophageal reflux disease without esophagitis (principal); K44.9 Diaphragmatic hernia without obstruction or gangrene; K31.89 Other diseases of stomach and duodenum; K22.4 Dyskinesia of esophagus; K30 Functional dyspepsia; K59.09 Other constipation; I10 Essential (primary) hypertension; Z87.891 Personal history of nicotine dependence; Z88.2 Allergy status to sulfonamides; Z88.5 Allergy status to narcotic agent; Z88.8 Allergy status to other drugs, medicaments and biological substances; Z79.82 Long term (current) use of aspirin; Z79.899 Other long term (current) drug therapy; R07.89 Other chest pain
CPT/HCPCS: 43239; 82657; 82962; J2003; J2704; J7120

== ENCOUNTER 2025-11-25 09:51 | Outpatient (CLI) | payer OTHER, SELFPAY ==
--- OUTSIDE RECORDS SUMMARY | 2025-11-25 09:57 | XMS_ITS | Encounter Summary ---
Author Organization [employer] ([place], [place], [place], [place], [place]) Address [address] [place] [address] Care Team Providers Care Case Management Social Worker Name Role Phone Unavailable Primary Care Provider Unavailabl e Encounter Details Date Type Department Care Team (Late st Contact Info) Description 05/22/2019 Transcribed Document [facility] [place] Family Medicine [facility] [place] [address] ProviderElena MD [address] [place] [phone] Social History Tobacco Use Types Packs/Day Years [...] On: 05/22/2019 13:13 EDT by Julia Randolph PLANT NURSERY WORKER Triage Across the Room Triage Date/Time : 05/22/2019 13:13 EDT Chief Complaint : c/o left flank pain and cloudy urine for 2-3 days Julia Randolph RN - 05/22/2019 13:13 EDT DCP GENERIC CODE Tracking Acuity : 3 - Urgent Tracking Group : [facility] ED Julia Leon RN - 05/22/2019 13:13 [...] Life Cycle Status: Active Ectopic (SNOMED CT :17715074 ) Name of Problem: Ectopic ; Recorder: MONI YUNG MD-EMR; Confirmation: Confirmed ; Classification: Medical ; Code: [id number] ; Contributor System: PowerChart ; Last Updated: 10/24/2014 8:05 EST ; Life Cycle Date: 10/24/2014 ; Life Cycle Status: Active ; Responsible Provider: MONI YUNG MD-EMR; Vocabulary: SNOMED CT HTN (hypertension) (SNOMED CT :1397196198 ) Name of Problem: HTN (hypertension) ; Recorder: CARINA MELCHOR RN; Confirmation: Confirmed ; Classification: Medical ; Code: [id number] ; Contributor System: SaleStreamChart ; Last Updated: 09/29/2014 14:18 EST ; Life Cycle Date: 09/29/2014 ; Life Cycle Status: Active ; Vocabulary: SNOMED CT Hypoglycemia (SNOMED CT :165366517 ) Name of Problem: Hypoglycemia ; Recorder: Ben Hernandez Rn; Confirmation: Confirmed ; Classification: Medical ; Code: [id number] ; Contributor System: PowerChart ; Last Updated: 10/15/2018 1:50 EST ; Life Cycle Date: 10/15/2018 ; Life Cycle Status: Active ; Vocabulary: SNOMED CT Migraine (SNOMED CT :54724269 ) Name of Problem: Migraine ; Recorder: NICOLE LAMA RN; Confirmation: Confirmed ; Classification: Medical ; Code: [id number] ; Contributor System: PowerChart ; Last Updated: 12/19/2015 0:55 EST ; Life Cycle Date: 12/19/2015 ; Life Cycle Status: Active ; Vocabulary: SNOMED CT Diagnoses(Active) Flank pain Date: 05/22/2019 ; Diagnosis Type: Reason For Visit ; Confirmation: Complaint of ; Clinical Dx: Flank pain ; Classification: Medical ; Clinical Service: Emergency medicine ; Code: PNED ; Probability: 0 ; Diagnosis Code: [id number] ED Height and Weight Height Source : Stated Height Entry Format : [place] Height, Feet : 4 ft(Converted to: 122 cm, 48 Inch) Height, Inches : 11 Inch(Converted to: 0 ft 11 Inch, 27.94 cm) Clinical Height : 149.86 cm Weight Source, ED : Critical estimated dosing weight Weight Entry Format : [place] Weight, Pounds : 150 lb Clinical Dosing Weight : 68.18 kg Body Surface Area (BSA) : 1.63 m2 Body Mass Index : 30.4 kg/m2 (HI) [place] Body Weight (IBW) : 42.87 kg Julia Randolph RN - 05/22/2019 13:13 EDT documented in this encounter Plan of Treatment Not on file documented as of this encounter Visit Diagnoses Not on filedocumented in this encounter
--- OUTSIDE RECORDS SUMMARY | 2025-11-25 09:57 | XMS_ITS | Encounter Summary ---
Author Organization [employer] ([place], [place], [place], [place], [place]) Address [address] [place] [address] Care Team Providers Care Scraper Burrer Name Role Phone Unavailable Primary Care Provider Unavailabl e Encounter Details Date Type Department Care Team (Late st Contact Info) Description 01/01/[address] [facility] [place] [facility] [place] [address] ProviderElena MD [address] [place] [id number] Social History Tobacco Use Types Packs/Day Years Used Date Smoking Tobacco: Never Assessed Comments Unknown Sex and Gender Information Value Date Recorded Sex Assigned at Not on file Legal Sex Female 5:06 PM CDT Gender Identity Not on file Sexual Orientation Not on file documented as of this encounter Miscellaneous Notes * [employer]ner Conversion Note - Historical ProviderMD - 01/01/2019 1:05 PM VICE PRESIDENT OF PROCUREMENT Electronically signed by Ivana [facility] Conversion Revenue Collector Aba at 03/12/2023 4:29 PM CDT documented in this encounter Plan of Treatment Not on file documented as of this encounter Visit Diagnoses Not on filedocumented in this encounter
--- OUTSIDE RECORDS SUMMARY | 2025-11-25 09:57 | XMS_ITS | Encounter Summary ---
Author Organization [employer] ([place], [place], [place], [place], [place]) Address [address] [place] [address] Care Team Providers Care Psychologist Social Name Role Phone Unavailable Primary Care Provider Unavailabl e Encounter Details Date Type Department Care Team (Late st Contact Info) Description 05/22/2019 Transcribed Document [facility] [place] Family [place] [facility] [place] [address] ProviderElena MD [address] [place] [id number] Social History Tobacco Use Types Packs/Day Years [...] 3:20 PM CDT Electronically signed by Ivana [facility] Conversion Electric Distribution Engineer Aba at 03/12/2023 4:21 PM CDT documented in this encounter Plan of Treatment Not on file documented as of this encounter Visit Diagnoses Not on filedocumented in this encounter
--- OUTSIDE RECORDS SUMMARY | 2025-11-25 09:57 | XMS_ITS | Encounter Summary ---
Author Organization [employer] ([place], [place], [place], [place], [place]) Address [address] [place] [address] Care Team Providers Care Furnace Checker Name Role Phone Unavailable Primary Care Provider Unavailabl e Encounter Details Date Type Department Care Team (Late st Contact Info) Description 05/22/2019 Transcribed Document [facility] [place] [facility] [place] [address] ProviderElena MD [address] [place] [id number] Social History Tobacco Use Types Packs/Day Years [...] Communication Barrier : None Primary Language : Lithuanian Any Spiritual/Cultural Needs or Requests : No [...] (Last Updated: 12/19/2015 01:02:37 EST by NICOLE LAMA RN) Nutrition/Health: Regular (Last Updated: 01/01/2019 12:19:40 [...]
--- OUTSIDE RECORDS SUMMARY | 2025-11-25 09:57 | XMS_ITS | Encounter Summary ---
Author Organization [employer] ([place], [place], [place], [place], [place]) Address [address] [place] [address] Care Team Providers Care Publishing Agent Name Role Phone Unavailable Primary Care Provider Unavailabl e Encounter Details Date Type Department Care Team (Late st Contact Info) Description 05/22/2019 Transcribed Document [facility] [place] Family Medicine Counts include [address] beds at [facility] [place] [address] ProviderElena MD [address] [place] [id number] Social History Tobacco Use Types Packs/Day Years [...] - 05/22/2019 15:37 EDT Electronically signed by Interface, [facility] Conversion Instructional Developer Cerner at 03/12/2023 4:22 PM CDT documented in this encounter Plan of Treatment Not on file documented as of this encounter Visit Diagnoses Not on filedocumented in this encounter
--- OUTSIDE RECORDS SUMMARY | 2025-11-25 09:57 | XMS_ITS | Clinical Summary ---
Author Organization [facility] Address [address] [place] [address] Care Team Providers Care Gray Tender Name Role Phone Laura Cobian Primary Care Provider [phone] Allergies Active Allergy Reactions Criticality Noted Date [...] 24 hr tabletIndicatio ns:Coronary artery disease of [place] artery of [place] heart with stable angina pectoris Take 1 tablet by mouth Daily. 30 tablet 2 3 Active hydroCHLOROthia zide 25 MG tablet Take 1 tablet by mouth Daily. Active Creon [id number] units capsule delayed-release particles capsule Take 1 [...] Encounters Date Type Department Care Team Description 08/31/2025 Telephone [facility] CARDIOLOG[facility] [address] [facility] [address] [place] [address] Abe Gore MD Med Refill from Last 3 Months Family History Medical [...] no 06/26/2025 Feels Threatened by Someone no 0811/2024 Does Anyone Try to Keep You From [...] Procedure Name Priority Date/Time Associated Diagnosis Comments HEMOGLOBIN A1C Routine 07/14/2021 6:31 AM EDT LIPID PANEL Routine 07/14/2021 6:31 AM EDT MAMMO SCREENING DIGITAL TOMOSYNTHESIS BILATERAL W CAD Routine 06/13/2021 3:32 PM EDT Visit for screening mammogram HEPATITIS C ANTIBODY Routine 12/04/2019 3:22 PM EST Screening examination for venereal disease from Last 3 Months or Most Recently Relevant to Health Maintenance Results * (ABNORMAL) Hemoglobin A1c (07/14/2021 6:31 AM EDT) Hemoglobin A1C 5.70(H) 4.80 - 5.60 % 07/14/2021 7:13 AM EDT [facility] Blood Venipuncture / Unknown 07/14/2021 6:31 AM EDT 07/14/2021 6:53 AM EDT Narrative [facility] - 07/14/2021 7:13 AM EDT Hemoglobin A1C Ranges: Increased Risk for Diabetes 5.7% to 6.4% Diabetes >= 6.5% Diabetic Goal < 7.0% Ayesha Jennings [facility] BLOOD ORDERABLES Final Result [facility]
[address] [place] [address], * (ABNORMAL) Lipid Panel (07/14/2021 6:31 AM EDT) Total Cholesterol 192 0 - 200 mg/dL 07/14/2021 7:38 AM EDT [facility] Triglycerides 326(H) 0 - 150 mg/dL 07/14/2021 7:38 AM EDT [facility] HDL Cholesterol 34(L) 40 - 60 mg/dL 07/14/2021 7:38 AM EDT [facility] LDL Cholesterol 103(H) 0 - 100 mg/dL 07/14/2021 7:38 AM EDT [facility] VLDL Cholesterol 55(H) 5 - 40 mg/dL 07/14/2021 7:38 AM EDT [facility] LDL/HDL Ratio 2.73 07/14/2021 7:38 AM EDT [facility] Blood Venipuncture / Unknown 07/14/2021 6:31 AM EDT 07/14/2021 6:53 AM EDT Narrative [facility] - 07/14/2021 7:38 AM EDT Cholesterol [...] mg/dL Very High >189 mg/dL Ayesha Jennings [facility] BLOOD ORDERABLES Final Result [facility]
[address] [place] [address], * Mammo Screening Digital Tomosynthesis Bilateral With [...] ve Non-Reacti ve 12/04/2019 11:49 PM EST [facility] Blood Venipuncture / Unknown 12/04/2019 3:22 PM EST 12/04/2019 3:22 PM EST Narrative [facility] - 12/04/2019 11:49 PM EST Results may be falsely decreased if patient taking Biotin. Graciela Darnell APRN LAB BLOOD ORDERABLES Final Resu lt [facility]
[address] [place] [address], from Last 3 Months or Most Recently [...] pulse or is breathing): Full Care Teams Gray Tender Relationship Specialty Start Date End Date Laura Cobian [address] [place], [place] [phone] PCP - General Nurse Practitioner 11/23/23
--- OUTSIDE RECORDS SUMMARY | 2025-11-25 09:57 | XMS_ITS | Encounter Summary ---
Author Organization [employer] ([place], [place], [place], [place], [place]) Address [address] [place] [address] Care Team Providers Care Audio Visual Arts Director Name Role Phone Unavailable Primary Care Provider Unavailabl e Encounter Details Date Type Department Care Team (Late st Contact Info) Description 01/01/2019 Transcribed Document [facility] [place] [facility] [place] [address] ProviderElena MD [address] [place] [address] Social History Tobacco Use Types Packs/Day Years Used Date Smoking Tobacco: Never Assessed Comments Unknown Sex and Gender Information Value Date Recorded Sex Assigned at Not on file Legal Sex Female 5:06 PM CDT Gender Identity Not on file Sexual Orientation Not on file documented as of this encounter Miscellaneous Notes * Cerner Conversion Note - Elena ProviderMD - 01/01/2019 2:13 PM REGISTERED NURSE FETAL [facility] [address] [place] [address] PERSON INFORMATION Name DONYA MALDONADO Age 43 Years 1975 Sex Female Language Serbian PCP KEVEN SELLERS, KARTHIK-INT Marital Status Single Med Service Emergency Medicine Acct# Arrival 01/01/2019 11:20:00 Visit Reason Headache; Chest pain; CP,SOA Acuity 2 - Emergent LOS 000 02:53 Depart Date: 01/01/19 01:42 PM Address: [address] [place] [phone] Comment: PROVIDER INFORMATION Provider Role Assigned Unassigned ROBERT GREEN MD ED Physician 01/01/2019 11:23:46 JANI CATALAN, COTTAGE MASTER Nurse 01/01/2019 11:56:40 DIAGNOSIS Chest pain PHYS [...] 5/325; sulfADIAZINE; lisinopril Medications: Prescription Display acetaminophen-hydrocodone ([place] 7.5 mg-325 mg oral tablet) 1 Tab, Oral, Tab, Q4H, PRN as needed for pain, X 2 Day(s), # 12 Tab, 0 Refill(s) Comment: DISCHARGE INFORMATION Discharge Disposition: Home Discharge Location: PATIENT EDUCATION INFORMATION Instructions: Nonspecific Chest Pain Follow up: With: Address: When: KEVEN SELLERS [address] [place] [address], [place] [id number] [facility] ([facility] Within 2 to 3 days Comment: documented in this encounter Plan of Treatment Not on file documented as of this encounter Visit Diagnoses Not on filedocumented in this encounter
--- OUTSIDE RECORDS SUMMARY | 2025-11-25 09:57 | XMS_ITS | Clinical Summary ---
Author Organization [facility] Address [address] [place] [address] Phone Care Team Providers Care Performance Architect Name Role Phone Kallie Quinn APRN Primary Care Physician [phone] Conditions or Problems Problem Name Problem Code [...] [BMI] 29.0-29.9, adult Carpal tunnel syndrome, right 93401021 (SNOMED CT) 01/28 Active 01/28 Nidia Theodore MD Carpal tunnel syndrome Sore throat (acute) 763010206 (SNOMED CT) 01/28 Active 01/28 Nidia Theodore MD Pain in throat UTI, acute 396306820 (SNOMED CT) 01/28 Active 01/28 Nidia Theodore MD Acute urinary tract infection Body mass index (BMI) 29.0-29.9; adult Z68.29 (ICD-10-CM ) 12/22 Removed 12/22 Kallie Quinn APRN Body mass index [BMI] 29.0-29.9, adult Irregular menses 19580999 (SNOMED CT) 12/22 Active 12/22 Kallie Geddes BRENT Irregular periods Counseling for nutrition Z71.3 (ICD-10-CM ) 12/22 Inactive 12/22 Kallie Quinn BRENT Dietary counseling and surveillance Body mass index (BMI) 31.0-31.9; adult Z68.31 (ICD-10-CM ) 01/15 Correction 01/20 Kallie Quinn APRN Body mass index [BMI] 31.0-31.9, adult Vaginal discharge 522055949 (SNOMED CT) 12/22 Active 12/22 [facility] RLQ pain 631595544 (SNOMED CT) 12/22 Active 12/22 Kallie Quinn BRENT Right lower quadrant pain Body mass index (BMI) 31.0-31.9; adult Z68.31 (ICD-10-CM ) 01/15 Removed 01/20 Jerrica Enamorado MD Body mass index [BMI] 31.0-31.9, adult Body mass index (BMI) 31.0-31.9; adult Z68.31 (ICD-10-CM ) 01/09 Correction 01/09 Jerrica Enamorado MD Body mass index [BMI] 31.0-31.9, adult Blurred vision 309933611 (SNOMED CT) 01/15 Active 01/15 Jerrica Enamorado [...] mass index [BMI] 30.0-30.9, adult Near syncope 126763057 (SNOMED CT) 01/02 Inactive 01/07 Jerrica Enamorado MD Near syncope Hypoglycemi a NOS 218753974 (SNOMED CT) 03/15 Resolved 03/15 Jerrica Enamorado MD Hypoglycemia Low back pain, acute 855521817 (SNOMED CT) 12/27 Resolved 12/27 Jerrica Enamorado MD Acute low back pain Influenza 7919418 (SNOMED CT) 12/01 Resolved 12/01 Jerrica Enamorado MD Influenza Cough 35856343 (SNOMED CT) 12/01 Resolved 12/01 Jerrica Enamorado MD Cough Diverticulo sis 688589207 (SNOMED CT) 12/25 Active 12/25 Kallie Quinn APRN Diverticular disease Body mass index (BMI) 30.0-30.9; adult Z68.30 (ICD-10-CM ) 12/09 Removed 12/09 Kallie Quinn APRN Body mass index [BMI] 30.0-30.9, adult Body mass index (BMI) 29.0-29.9; adult Z68.29 (ICD-10-CM ) 12/01 Correction 12/01 [facility] HARNESS MAKER Body mass index [BMI] 29.0-29.9, adult Hematuria 85637783 (SNOMED CT) 12/09 Active 12/09 [facility] [employer]ARNESS [employer] Blood in urine Body mass index (BMI) 29.0-29.9; adult Z68.29 (ICD-10-CM ) 12/01 Removed 12/01 [facility] HARNESS MAKER Body mass index [BMI] 29.0-29.9, adult Body mass index (BMI) 28.0-28.9; adult Z68.28 (ICD-10-CM ) 03/05 Correction 03/07 [facility] Body mass index [BMI] 28.0-28.9, adult GERD 774659208 (SNOMED CT) 12/01 Active 12/01 [facility] HARNESS MAKER Gastroesophage al reflux disease Cough 56871554 (SNOMED CT) 12/01 Removed 12/01 [facility] HARNESS MA[employer]ER Cough Influenza 4838675 (SNOMED CT) 12/01 Removed 12/01 [facility] HARNESS [employer] Influenza Body mass index (BMI) 28.0-28.9; adult Z68.28 (ICD-10-CM ) 03/05 Removed 03/07 Nia Curtsinger HARNESS MAKER Body mass index [BMI] 28.0-28.9, adult Bunion, right foot M21.611 (ICD-10-CM ) 03/05 Active 03/05 Nia Curtsinger HARNESS MAKER Bunion of right foot Flu vaccine 69878229 (SNOMED CT) 12/27 Inactive 12/28 Nia Curtsinger HARNESS MAKER Administration of influenza vaccine Low back pain, acute 965797771 (SNOMED CT) 12/27 Removed 12/27 Nia Curtsinger HARNESS MAKER Acute low back pain Urinary frequency 594882197 (SNOMED CT) 12/27 Inactive 12/27 Nia Curtsinger HARNESS MAKER Increased frequency of urination SCREENING FOR THYROID DISORDER 373414815 (SNOMED CT) 12/27 Inactive 12/27 Nia Curtsinger HARNESS MAKER Thyroid disorder screening Screening for lipid disorder 657627182 (SNOMED CT) 12/27 Inactive 12/27 Nia Curtsinger HARNESS MAKER Procedure carried out on subject Urinary frequency 893028000 (SNOMED CT) 07/18 Inactive 07/18 Nia Curtsinger HARNESS MAKER Increased frequency of urination Leg pain, left 251186004 (SNOMED CT) 07/04 Resolved 07/04 Nia Curtsinger HARNESS MAKER Pain in left lower limb Edema of face-- ANGIOEDEMA D/T ILSA INHIBITOR 160972293 (SNOMED CT) 07/11 Resolved 07/11 Nia Curtsinger HARNESS MAKER Edema of face Edema of face-- ANGIOEDEMA D/T ILSA INHIBITOR 990388488 (SNOMED CT) 07/11 Removed 07/11 Nia Curtsinger HARNESS MAKER Edema of face Perforated tympanic membrane 65025201 (SNOMED CT) 05/16 Resolved 05/16 Nia Curtsinger HARNESS MAKER Perforation of tympanic membrane Leg pain, left 379329870 (SNOMED CT) 07/04 Removed 07/04 Pinky Reyes MD Pain in left lower limb Perforated tympanic membrane 57283708 (SNOMED CT) 05/16 Removed 05/16 Nia Curtsinger HARNESS MAKER Perforation of tympanic membrane Temporal arteritis, LEFT 623490034 (SNOMED CT) 05/09 Inactive 05/09 Nia Curtsinger HARNESS MAKER Temporal arteritis Migraine headache 66276020 (SNOMED CT) 05/16 Active 05/16 Nia Curtsinger HARNESS MAKER Migraine Sinusitis, acute maxillary 86469524 (SNOMED CT) 05/16 Inactive 05/16 Nia Curtsinger HARNESS MAKER Acute maxillary sinusitis Temporal arteritis, LEFT 278671291 (SNOMED CT) 05/09 Removed 05/09 Nia Curtsinger HARNESS MAKER Temporal arteritis Anemia, iron deficiency 07345400 (SNOMED CT) 03/17 Active 03/17 Debra Stafford HARNESS MAKER Iron deficiency anemia Prediabetes 8163239 (SNOMED CT) 03/15 Active 03/15 Debra Stafford HARNESS MAKER Impaired glucose tolerance Hypoglycemi a NOS 711102216 (SNOMED CT) 03/15 Removed 03/15 Debra Stafford HARNESS MAKER Hypoglycemia Headache, cluster 115121750 (SNOMED CT) 12/16 Resolved 12/20 Debra Stafford HARNESS MAKER Cluster headache Cluster headache 170686822 (SNOMED CT) 12/16 Resolved 12/16 Debra Stafford HARNESS MAKER Cluster headache Dysfunction al uterine bleeding 04507811 (SNOMED CT) 12/30 Active 12/30 Debra Stafford HARNESS MAKER Dysfunctional uterine bleeding Abnormal pap smear 174464394 (SNOMED CT) 02/05 Resolved 02/05 Debra Mildred HARNESS MAKER Abnormal cytology findings Cardiac arrhythmia, intermitten t 90847457 (SNOMED CT) Resolved Debra Mildred HARNESS MAKER Conduction disorder of the heart Leg pain, left 13679040 (SNOMED CT) Resolved Debra Mildred HARNESS MAKER Pain in lower limb Allergic rhinitis, seasonal 311575043 (SNOMED CT) Resolved Debra Mildred HARNESS MAKER Seasonal allergic rhinitis Tension headache 062308010 (SNOMED CT) Active Debra Stafford HARNESS MAKER Tension-type headache Allergic rhinitis, seasonal 320601257 (SNOMED CT) Removed Debra Stafford HARNESS MAKER Seasonal allergic rhinitis Leg pain, left 54931127 (SNOMED CT) Removed Edbra Mildred HARNESS MAKER Pain in lower limb Vitamin D deficiency 17454211 (SNOMED CT) Active Debra Mildred HARNESS MAKER Vitamin D deficiency Cardiac arrhythmia, intermitten t 00873993 (SNOMED CT) Removed Debra Stafford HARNESS MAKER Conduction disorder of the heart [place] spotted fever SUSPECTED 296175943 (SNOMED CT) 03/19 Inactive 03/19 Debra Mildred HARNESS MAKER [place] spotted fever Dermatitis 096451276 (SNOMED CT) 03/19 Inactive 03/19 Debra Stafford HARNESS MAKER Dermatitis Problem excluded fro m report: Dermatitis 065750444 (SNOMED CT) 03/19 Removed 03/19 Debra Mildred HARNESS MAKER Dermatitis Dysfunction al uterine bleeding 80381691 (SNOMED CT) 12/30 Resolved 12/30 Debra Stafford HARNESS MAKER Dysfunctional uterine bleeding Nipple discharge 80963756 (SNOMED CT) 12/30 Resolved 12/30 Debra Stafford HARNESS MAKER Discharge from nipple Nipple discharge 76105059 (SNOMED CT) 12/30 Resolved 12/30 Debra Stafford HARNESS MAKER Discharge from nipple Hyperlipide bunny 50405493 (SNOMED CT) Resolved 12/16 Debra Mildred HARNESS MAKER Hyperlipidemia Shoulder pain, left 719.41 (ICD-9-CM) 12/16 Resolved 12/16 Debra Mildred HARNESS MAKER Pain in joint involving shoulder region Leg pain, left 71625834 (SNOMED CT) 12/16 Resolved 12/16 Debra Stafford HARNESS MAKER Pain in lower limb Sciatica, left 52372014 (SNOMED CT) 12/16 Resolved 12/16 Debra Stafford HARNESS MAKER Sciatica Gastric ulcer, hx of 460004606 (SNOMED CT) 12/16 Resolved 12/16 Debra Stafford HARNESS MAKER H/O: gastric ulcer Calculus, kidney 33491185 (SNOMED CT) 12/16 Resolved 12/16 Debra Stafford HARNESS MAKER Kidney stone Hematuria 75760117 (SNOMED CT) 12/16 Resolved 12/16 Debra Stafford HARNESS MAKER Blood in urine Carpal tunnel syndrome, bilateral 61210007 (SNOMED CT) 12/16 Resolved 12/20 Debra Stafford HARNESS MAKER Carpal tunnel syndrome Annual filler block inserter remover exam 85826803 (SNOMED CT) 01/25 Resolved 01/25 Debra Stafford HARNESS MAKER Gynecologic examination HPV 089341993 (SNOMED CT) 02/05 Resolved 02/05 Debra Mildred HARNESS MAKER Human papilloma virus infection HPV 819092436 (SNOMED CT) 02/05 Removed 02/05 Marycruz [place] HARNESS MAKER Human papilloma virus infection Abnormal pap smear 403936478 (SNOMED CT) 02/05 Removed 02/05 Marycruz [place] HARNESS MAKER Abnormal cytology findings Annual filler block inserter remover exam 76221914 (SNOMED CT) 01/25 Removed 01/25 Marycruz [place] HARNESS MAKER Gynecologic examination Nipple discharge 20703255 (SNOMED CT) 12/30 Removed 12/30 Marycruz [place] HARNESS MAKER Discharge from nipple Nipple discharge 59392967 (SNOMED CT) 12/30 Removed 12/30 Marycruz [place] HARNESS MAKER Discharge from nipple Dysfunction al uterine bleeding 85394987 (SNOMED CT) 12/30 Removed 12/30 Marycruz [place] HARNESS MAKER Dysfunctional uterine bleeding Dysmenorrhe a 668128126 (SNOMED CT) 12/30 Inactive 12/30 Marycruz [place] HARNESS MAKER Dysmenorrhea Headache, cluster 058360218 (SNOMED CT) 12/16 Removed 12/20 Marycruz [place] HARNESS MAKER Cluster headache Carpal tunnel syndrome, bilateral 14265380 (SNOMED CT) 12/16 Removed 12/20 Marycruz [place] HARNESS MAKER Carpal tunnel syndrome Hematuria 31006367 (SNOMED CT) 12/16 Removed 12/16 Marycruz [place] HARNESS MAKER Blood in urine Calculus, kidney 86167605 (SNOMED CT) 12/16 Removed 12/16 Marycruz [place] HARNESS MAKER Kidney stone Gastric ulcer, hx of 509069131 (SNOMED CT) 12/16 Removed 12/16 Marycruz [place] HARNESS MAKER H/O: gastric ulcer Sciatica, left 67882052 (SNOMED CT) 12/16 Removed 12/16 Marycruz [place] HARNESS MAKER Sciatica Leg pain, left 80890164 (SNOMED CT) 12/16 Removed 12/16 Marycruz [place] HARNESS MAKER Pain in lower limb Cluster headache 375304879 (SNOMED CT) 12/16 Removed 12/16 Marycruz [place] APRN Cluster headache Shoulder pain, left 719.41 (ICD-9-CM) 12/16 Removed 12/16 Marycruz [place] APRN Pain in joint involving shoulder region Hypertensio n 07968502 (SNOMED CT) Active 12/16 Marycruz [place] HARNESS MAKER Hypertensive disorder Hyperlipide bunny 36415323 (SNOMED CT) Removed 12/16 Marycruz [place] HARNESS MAKER Hyperlipidemia Depression 13347646 (SNOMED CT) Active 12/16 Marycruz [place] HARNESS MAKER Depressive disorder Anxiety Disorder 978559786 (SNOMED CT) Active 12/16 Marycruz [place] BRENT Anxiety disorder Medications Medication Instructions Start Date Stop Date Generic Name [facility] Provider HYDROCHLOROTHIAZIDE 25 MG TABS Take 1 tablet by mouth once a day 12/16 hydrochlorothiazid e 19507262491 Adiel Ledbetter APRN HYDROCHLOROTHIAZIDE 25 MG TABS TAKE 1 TABLET BY MOUTH EVERY DAY 12/09 hydrochlorothiazid e 79152618467 Pebbles Rashid HARNESS MAKER METOPROLOL TARTRATE 50 MG TABS Take 1 tablet by mouth once a day 01/02 metoprolol tartrate 47860211275 Isabela Kilgore APRN AMLODIPINE BESYLATE 15 MG ORAL TABLET Take 1 tablet by mouth once a day 07/18 AMLODIPINE BESYLATE Adiel Ledbetter APRN HYDROCHLOROTHIAZIDE 25 MG TABS Take 1 tablet by mouth once a day 12/16 hydrochlorothiazid e 34492154049 Adiel Ledbetter APRN METOPROLOL TARTRATE 50 MG TABS Take 1 tablet by mouth once a day 01/02 metoprolol tartrate 52157793013 Adiel Ledbetter APRN BIOFREEZE GEL Use as directed 01/28 BIOFREEZE GEL Nury Kraus [facility] ACCU-CHEK TRINA PLUS STRP Use 03/15 blood sugar diagnostic 82192899605 Marycruz Skinner MA METOPROLOL TARTRATE 50 MG TABS Take 1 tablet by mouth once a day 01/02 metoprolol tartrate 62302540636 Nury Kraus CMA HYDROCHLOROTHIAZIDE 25 MG TABS Take 1 tablet by mouth once a day 12/16 hydrochlorothiazid e 72444404506 Marycruz Skinner MA PROMETHAZINE HCL 25 MG TABS Take 1 tablet by mouth every eight hours as needed 01/02 promethazine 15588694892 Marycruz Skinner MA IBUPROFEN 800 MG TABS Take 1 tablet three times a day as needed 12/01 ibuprofen 60304314681 Marycruz Skinner MA ACCU-CHEK TRINA PLUS w/Device KIT Use 03/15 blood-glucose meter 82324271769 Marycruz Skinner MA VENTOLIN HFA 108 (90 Base) MCG/ACT AERS Take 2 four times a day as needed 12/30 albuterol sulfate 12654652943 Marycruz Skinner MA ACCU-CHEK FASTCLIX LANCET KIT Use 03/15 LANCETS MISC. Marycruz Skinner MA AMLODIPINE BESYLATE 15 MG ORAL TABLET Take 1 tablet by mouth once a day 07/18 AMLODIPINE BESYLATE Mallory Johnson MA LEVAQUIN 500 MG ORAL TABLET TAKE 1 TABLET BY MOUTH 1 TIME A DAY FOR 10 DAYS 01/31 LEVOFLOXACIN 84495429749 Nidia Theodore MD AUGMENTIN 500-125 MG ORAL TABLET TAKE 1 TABLET BY MOUTH 3 TIMES A DAY FOR 10 DAYS 01/28 AMOXICILLIN-POT CLAVULANATE 05454835145 Nidia Theodore MD BIOFREEZE GEL USE DIRECTED 01/28 BIOFREEZE GEL Nidia Theodore MD AUGMENTIN 500-125 MG ORAL TABLET TAKE 1 TABLET BY MOUTH 3 TIMES A DAY FOR 10 DAYS 01/28 AMOXICILLIN-POT CLAVULANATE 08835789752 Nidia Theodore MD HYDROXYZINE HCL 10 MG TABS TAKE ONE TABLET 3 TIMES A DAY NEEDED FOR ANXIETY 12/30 HYDROXYZINE HCL 38331450915 Kallie Quinn APRN AMLODIPINE BESYLATE 15 MG ORAL TABLET (AMLODIPINE BESYLATE) TAKE 1 TABLET BY MOUTH 1 TIME A DAY 07/18 AMLODIPINE BESYLATE 15 MG ORAL TABLET (AMLODIPINE BESYLATE) Kallie Quinn APRN IMITREX 50 MG TABS TAKE 1 TABLET BY MOUTH AT ONSET OF HEADACHE, MAY REPEAT IN 2 HOURS 01/15 SUMATRIPTAN SUCCINATE 93522664504 Kallie Quinn APRN IMITREX 50 MG TABS TAKE 1 TABLET BY MOUTH AT ONSET OF HEADACHE, MAY REPEAT IN 2 HOURS 01/15 SUMATRIPTAN SUCCINATE 06074419076 Jerrica Enamorado MD PROMETHAZINE HCL 25 MG TABS TAKE 1 TABLET BY MOUTH EVERY 8 HOURS NEEDED FOR NAUSEA 01/02 PROMETHAZINE HCL 47993686951 Jerrica Enamorado MD NORCO 7.5-325 MG ORAL TABLET TAKE ONE TAB ORALLY EVERY 4 HOURS NEEDED FOR PAIN 03/05 HYDROCODONE-ACETAM INOPHEN 36572934998 Jerrica Enamorado MD PROMETHAZINE HCL 25 MG TABS TAKE 1 TABLET BY MOUTH EVERY 6 HOURS NEEDED FOR NAUSEA 05/12 PROMETHAZINE HCL 49443225171 Jerrica Enamorado MD METOPROLOL TARTRATE 50 MG TABS TAKE 1 TABLET BY MOUTH 1 TIME A DAY 01/02 METOPROLOL TARTRATE 18370408737 Jerrica Enamorado MD TRAMADOL HCL 50 MG TABS 1 PO TID PRN 12/09 TRAMADOL HCL 26933045842 Jerrica Enamorado MD RANITIDINE HCL 150 MG ORAL TABLET TAKE 1 TABLET BY MOUTH EVERY 12 HOURS NEEDED 12/01 RANITIDINE HCL 87225814141 Jerrica Enamorado MD BUTALBITAL-ACETAMINO PHEN 50-325 MG TABS 1 PO BID PRN 12/01 BUTALBITAL-ACETAMI NOPHEN 00064469988 Jerrica Enamorado MD LORATADINE 10 MG TABS TAKE 1 TABLET BY MOUTH 1 TIME A DAY 07/11 LORATADINE 93771393697 Jerrica Enamorado MD IMITREX 100 MG TABS TAKE 1/2-1 TABLET BY MOUTH AT ONSET OF HEADACHE, MAY REPEAT IN 2 HOURS 05/16 SUMATRIPTAN SUCCINATE 73651388717 Jerrica Enamorado MD TRAMADOL HCL 50 MG TABS 1 PO TID PRN 12/09 TRAMADOL HCL 17858269429 [facility] TRAMADOL HCL 50 MG TABS 1 PO BID PRN 12/09 TRAMADOL HCL 33014811144 [facility] LEV[facility]QUIN 500 MG ORAL TABLET TAKE 1 TABLET BY MOUTH 1 TIME A DAY FOR 10 DAYS 12/01 LEVOFLOXACIN 26950875789 [facility] RANITIDINE HCL 150 MG ORAL TABLET TAKE 1 TABLET BY MOUTH EVERY 12 HOURS NEEDED 12/01 RANITIDINE HCL 56072045577 [facility] IM[facility] 100 MG TABS TAKE 1/2-1 TABLET BY MOUTH AT ONSET OF HEADACHE, MAY REPEAT IN 2 HOURS 05/16 SUMATRIPTAN SUCCINATE 08725954683 [facility] BUT[facility]BITAL-ACETAMINO PHEN 50-325 MG TABS 1 PO BID PRN 12/01 BUTALBITAL-ACETAMI NOPHEN 02370120936 [facility] LORATADINE 10 MG TABS TAKE 1 TABLET BY MOUTH 1 TIME A DAY 07/11 LORATADINE 20988988585 [facility] LEVAQUIN 500 MG ORAL TABLET TAKE 1 TABLET BY MOUTH 1 TIME A DAY FOR 10 DAYS 12/01 LEVOFLOXACIN 47800241943 [facility] IBUPROFEN 800 MG TABS take one tab tid daily with food prn 12/01 IBUPROFEN 48418043901 Jerrica Enamorado MD TAMIFLU 75 MG CAPS TAKE ONE TAB TWICE DAILY FOR 5 DAYS 03/05 OSELTAMIVIR PHOSPHATE 61781877565 Kallie Quinn BRENT ZITHROMAX Z-JOHN 250 MG TABS TAKE 2 TABLETS BY MOUTH ON DAY 1 THEN 1 TABLET BY MOUTH DAILY FOR 4 DAYS (DAY 2-5) 03/05 AZITHROMYCIN 29129436602 Nia Aguilera APRN HYDROXYZINE HCL 10 MG TABS TAKE ONE TABLET 3 TIMES A DAY NEEDED FOR ANXIETY 12/30 HYDROXYZINE HCL 03487273673 Nia Aguilera APRN NORCO 7.5-325 MG ORAL TABLET TAKE ONE TAB ORALLY EVERY 4 HOURS NEEDED FOR PAIN 03/05 HYDROCODONE-ACETAM INOPHEN 20085246795 Nia Aguilera APRN TAMIFLU 75 MG CAPS TAKE ONE TAB TWICE DAILY FOR 5 DAYS 03/05 OSELTAMIVIR PHOSPHATE 77190547859 Nia Aguilera APRN XULANE 150-35 MCG/24HR PTWK 03/15 NORELGESTROMIN-ETH ESTRADIOL 12138885687 Nia Aguilera APRN FERROUS SULFATE 325 (65 Fe) MG TABS TAKE 1 TABLET BY MOUTH 1 TIME A DAY 03/17 FERROUS SULFATE 66084448402 Nia Aguilera APRN QVAR 80 MCG/ACT INHALATION AEROSOL SOLUTION USE 1 PUFF TWICE A DAY 03/27 BECLOMETHASONE DIPROPIONATE 41532249923 Nia Aguilera APRN AMLODIPINE BESYLATE 5 MG TABS TAKE 1 TABLET BY MOUTH 1 TIME A DAY 07/18 AMLODIPINE BESYLATE 44089879168 Cody Whitlock HARNESS MAKER MEDROL 4 MG TBPK USE DIRECTED 07/11 METHYLPREDNISOLONE 99660184566 Nia Aguilera APRN LORATADINE 10 MG TABS TAKE 1 TABLET BY MOUTH 1 TIME A DAY 07/11 LORATADINE 42493783003 Nia Aguilera APRN LISINOPRIL 20 MG TABS TAKE 1 TABLET BY MOUTH 1 TIME A DAY 12/16 LISINOPRIL 59932139579 Nia Aguilera APRN IMITREX 100 MG TABS TAKE 1/2-1 TABLET BY MOUTH AT ONSET OF HEADACHE, MAY REPEAT IN 2 HOURS 05/16 SUMATRIPTAN SUCCINATE 63668832299 Nia Aguilera APRN XULANE 150-35 MCG/24HR PTWK 03/15 NORELGESTROMIN-ETH ESTRADIOL 27071448464 Nia Aguilera APRN IMITREX 100 MG TABS TAKE 1/2-1 TABLET BY MOUTH AT ONSET OF HEADACHE, MAY REPEAT IN 2 HOURS 05/16 SUMATRIPTAN SUCCINATE 59423700135 Nia Aguilera APRN CEFDINIR 300 MG CAPS TAKE 1 CAPSULE BY MOUTH TWICE A DAY FOR 10 DAYS 05/16 CEFDINIR 21479267928 Nia Aguilera APRN PROMETHAZINE HCL 25 MG TABS TAKE 1 TABLET BY MOUTH EVERY 6 HOURS NEEDED FOR NAUSEA 05/12 PROMETHAZINE HCL 74538391978 Nia Aguilera APRN PREDNISONE 20 MG TABS TAKE 1 TABLET BY MOUTH 3 TIMES A DAY FOR 4 WEEKS. TAKE WITH FOOD. 05/09 PREDNISONE 97523771055 Nia Aguilera APRN FLOVENT HFA 110 MCG/ACT INHALATION AEROSOL TAKE 2 INHALATIONS TWICE A DAY RINSE MOUTH WELL AFTER EACH USE 03/30 FLUTICASONE PROPIONATE HFA 43776645855 Debra Levy APRN QVAR 80 MCG/ACT INHALATION AEROSOL SOLUTION USE 1 PUFF TWICE A DAY 03/27 BECLOMETHASONE DIPROPIONATE 03779318251 Debra Levy APRN FERROUS SULFATE 325 (65 Fe) MG TABS TAKE 1 TABLET BY MOUTH 1 TIME A DAY 03/17 FERROUS SULFATE 67793931558 Debra Levy APRN ACCU-CHEK FASTCLIX LANCET KIT CHECK BS WHEN SYMPTOMATIC OR PREFERRED/GEN JERONIMO 03/15 LANCETS MISC. 75507535911 Nia Aguilera APRN ACCU-CHEK TRINA PLUS STRP CHECK BS WHEN SYMPTOMATIC OR PREFERRED/GEN JERONIMO 03/15 GLUCOSE BLOOD 89844780727 Nia Aguilera APRN ACCU-CHEK TRINA PLUS w/Device KIT CHECK BLOOD SUGAR WHEN SYMPTOMATIC OR PREFERRED/GEN JERONIMO 03/15 BLOOD GLUCOSE MONITORING SUPPL 75352273118 Debra Levy APRN XULANE 150-35 MCG/24HR PTWK 03/15 NORELGESTROMIN-ETH ESTRADIOL 83759747444 Debra Levy APRN OMEPRAZOLE 20 MG CPDR TAKE 1 CAPSULE BY MOUTH ONCE A DAY 12/16 OMEPRAZOLE 06270371270 Debra Levy APRN CALCIUM + D 315-200 MG-UNIT ORAL TABLET TAKE ONE TABLET DAILY 01/27 CALCIUM CITRATE-VITAMIN D 09062864098 Debra Levy APRN CETIRIZINE HCL 10 MG TABS TAKE 1 TABLET BY MOUTH EACH DAY FOR ALLERGIES 03/15 CETIRIZINE HCL 69537657075 Debra Stafford HARNESS MAKER CETIRIZINE HCL 10 MG TABS TAKE 1 TABLET BY MOUTH EACH DAY FOR ALLERGIES CETIRIZINE HCL 11987687838 Debra Levy APRN FLOVENT HFA 110 MCG/ACT INHALATION AEROSOL TAKE 2 INHALATIONS TWICE A DAY RINSE MOUTH WELL AFTER EACH USE FLUTICASONE PROPIONATE HFA 95526119590 Debra eLvy APRN DOXYCYCLINE HYCLATE 100 MG TABS TAKE 1 TABLET BY MOUTH EVERY 12 HRS X 10 DAYS 03/19 DOXYCYCLINE HYCLATE 92230425569 Debra Levy APRN CALCIUM + D 315-200 MG-UNIT ORAL TABLET TAKE ONE TABLET DAILY 01/27 CALCIUM CITRATE-VITAMIN D 08864784708 Marycruz Whitlock APRN VENTOLIN HFA 108 (90 Base) MCG/ACT AERS TAKE 2 INHALATIONS 4 TIMES A DAY NEEDED FOR WHEEZING AND COUGH 12/30 ALBUTEROL SULFATE 68165949804 Nia Aguilera APRN HYDROXYZINE HCL 10 MG TABS TAKE UP TO 3 TIMES A DAY FOR ANXIETY 12/30 HYDROXYZINE HCL 25918213279 Nia Aguilera APRN OMEPRAZOLE 20 MG CPDR TAKE 1 CAPSULE BY MOUTH ONCE A DAY 12/16 OMEPRAZOLE 01013660606 Debra Levy APRN HYDROCHLOROTHIAZIDE 25 MG TABS TAKE 1 TABLET BY MOUTH 1 TIME A DAY 12/16 HYDROCHLOROTHIAZID E 93487700020 Cody Kamlesh HARNESS MAKER LISINOPRIL 20 MG TABS TAKE 1 TABLET BY MOUTH 1 TIME A DAY 12/16 LISINOPRIL 05063794435 Debra Levy APRN Medications Administered No information available. Allergies, Adverse Reactions, Alerts Allergy Name Reaction Description Start Date Severity Statu s Provider PERCOCET VOMITING Critical Active Kallie Peace ll HARNESS MAKER ILSA INHIBITORS ANGIOEDEMA Critical Active [place] HARNESS MAKER SULFA SWELLING Moderate Active Marycruz [facility]re[facility] HARNESS MAKER Results Date Name Value Unit Range Flag [...] in Blood ABS NEUTROPH 6223 CELLS/UL 10*3/uL 7361-8154 N Neutrophils [#/volume] in Blood MPV 10.0 [...] room 9 LABS ORDERED Urine Dip Auto 37468, Strep Screen 09155 Laboratory tests ordered PH URINE 7.0 pH [...] of Care Type Date Detail Referral Gastroenterology [facility], [address], [place], [place] Referral excluded fr om report: Referral [facility] Foot & Ankle-Podiatry Podiatry [facility], [address] [place], [address] Referral [facility] Foot & Ankle-Podiatry Podiatry [facility], [address] [place], [address] Referral excluded fr om report: Referral [facility] Ear No se & Throat-ENT Throat [facility] Ear [facility]ose &, [address], [place], [address] Referral [facility], [address], [address], [address], [address], [place], [address] Ref[address] [facility] , [address], [place], [address] Referral Urology Referral [facility], [address], [address], [address], [place], [place] Referral RN NICU Referral [facility], [address], [place], [address] Referral Urology Referral [facility]rology [facility], [address], [address], [address], [place], [place] Pending order T1 CBC with diff [...] l Pending order Other Pending order SNOMED-CT: 78581 3000 Smoking Cessation Counseling Pending order SNOMED-CT: 51834 [id number] Current Medications Documented Pending order CBC with diff Pending order CMP Pending order Lipid Panel Pending order HGBA1c Pending order TSH reflex to fr ee T4 Pending order Vitamin D 25 Hyd joo Pending order Fluzone High-Dos e Intramuscular Suspension Pending order IMADM >18YR IM R OUTE 1ST VAC/TOXOID Pending order Other Pending order SNOMED-CT: 02837 3000 Smoking Cessation Counseling Pending order SNOMED-CT: 53321 [id number] Current Medications Documented Pending order Sedimentation Ra [...] Procedures Code Procedure Name Date Entry Date [id number] Medication Reconciliation [facility] 6399 T1 CBC with diff [facility] 80578 T1 CMP [facility] 496 T1 HGBA1c [facility] 59841 T1 Lipid Panel [facility] 85842 T1 TSH reflex to free T4 12/02/13 [facility] 21664 T2 Vitamin D 25 Hydroxy 2020 CPT-3075F Most recent systolic blood pressure 130-139 mm Hg CPT-3079F Most recent diastoli c blood pressure 80-89 mm Hg SCT-[id number] Medication Reconciliation CPT-3077F Most recent systolic blood pressure >=140 mm Hg CPT-3079F Most recent diastoli c blood pressure 80-89 mm Hg [facility] 395 T1 Urine Culture CPT-51550 Urine Dip Auto 44643 CPT-23201 Strep Screen 38328 5 SCT-[id number] Medication Reconciliation US PELVIS YNES Ultrasound Pelvis 7 CPT-3077F Most recent systolic blood pressure >=140 mm Hg CPT-1159F Medication list docu mented in medical record CPT-1160F Review of all medica tions by a prescribing practitioner CPT-11888 Urine Dip Auto 11075 CPT-31263 Test 86180 [facility] 33848 T2 BV Yeast Trich Culture (Affirm) 12/22 SCT-[id number] Medication Reconciliation SCT-[id number] SNOMED-CT: 884600052 755339 Current Medications Documented [facility] CPT-3075F Most recent systolic blood pressure 130-139 mm Hg NEURO GEN Neurology Referral General 2 SCT-[id number] Medication Reconciliation CPT-3074F Most recent systolic blood pressure <130 mm Hg CPT-3079F Most recent diastoli c blood pressure 80-89 mm Hg SCT-[id number] Medication Reconciliation SCT-812916329685685 SNOMED-CT: 405083387 872950 Current Medications Documented CPT-3074F Most recent systolic blood pressure <130 mm Hg CPT-3074F Most recent systolic blood pressure <130 mm Hg [facility] SCT-[id number] Medication Reconciliation ct abd pel w-out edg CT Abdomen and Pelvis w-out contr ast CPT-3074F Most recent systolic blood pressure <130 mm Hg CPT-59844 Test 88722 CPT-90002 Urine Dip Auto 57788 SCT-[id number] Medication Reconciliation X-Ray Chest X-Ray Chest CPT-3077F Most recent systolic blood pressure >=140 mm Hg SCT-971098621 Dietary management education/guidance/counseling SCT-880849814407195 Medication Reconciliation CPT-3075F Most recent systolic blood pressure 130-139 mm Hg CPT-3079F Most recent diastoli c blood pressure 80-89 mm Hg Podiatry [facility] Foot & Ankle-Podiatry 0 SCT-[id number] Medication Reconciliation CPT-02438 Fluzone Quadrivalent Preservative Free Intramuscular Suspension 0.5 ML CPT-49276 IMADM >18YR IM ROUTE 1ST VAC/TOXOID 10/26 6399 [facility] Test # CBC with diff 1 67966 [facility] Test # CMP 1 496 [facility] Test # HGBA1c 68158 [facility] Test # Lipid Panel 1 7573 [facility] Test # TIBC w iron level 10/26 06490 [facility] Test # TSH reflex to free T4 02714 Quest Test # Vitamin D 25 Hydroxy 2 CPT-63845 Urine Dip Auto 18207 SCT-916672036243043 Medication Reconciliation SCT-713716717391769 Medication Reconciliation CPT-93875 Urine Dip Auto 45647 CPT-59259 Test 13381 SCT-[id number] Medication Reconciliation SCT-621281747884581 Medication Reconciliation Other Other ENT [facility] Ear Nose & Throat-ENT 5 SCT-108385820522972 Medication Reconciliation INJORDER Injection(s) Ordered CPT-J1885 Toradol per 15 mg SCT-932803741767288 Medication Reconciliation 6399 [facility] Test # CBC with diff 4 809 [facility] Test # Sedimentation Rate RBC 2 Other [facility] Other Neuro Ref [facility] CPT-40166 Venipuncture 03947 5 SCT-953342286897389 Medication Reconciliation 6399 [facility] Test # CBC with diff 5 31212 [facility] Test # CMP 5 496 [facility] Test # HGBA1c 7573 [facility] Test # TIBC w iron level 03/30 25149 [facility] Test # TSH reflex to free T4 Other [facility] Other CPT-36727 Venipuncture 80839 0 927 [facility] Test # B12 466 [facility] Test # Folic Acid SCT-148006553843102 Medication Reconciliation 6399 [facility] Test # CBC with diff 0 68192 [facility] Test # CMP 0 496 [facility] Test # HGBA1c 4021 [facility] Test # Estradiol 470 [facility] Test # FSH 746 [facility] Test # Prolactin 615 [place] [address] Quest Test # TSH reflex to free T4 7573 [facility] Test # TIBC w iron level 03/15 Other [facility] Other SCT-670318348 SNOMED-CT: 653139007 Smoking Cessation Counseling SCT-290475103624718 SNOMED-CT: 426178680 630028 Current Medications Documented 6399 [facility] Test # CBC with diff 9 20247 [facility] Test # CMP 9 33853 [facility] Test # Lipid Panel 9 496 [facility] Test # HGBA1c 58530 [facility] Test # TSH reflex to free T4 52934 [facility] Test # Vitamin D 25 Hydroxy 2 Other Other Cardiology Referral Cardiology Ref[facility] CPT-46407 Fluzone High-Dose Intramuscular Suspensio n CPT-05656 IMADM >18YR IM ROUTE 1ST VAC/TOXOID 09/13 SCT-512815338 SNOMED-CT: 749286909 Smoking Cessation Counseling SCT-698674685919466 SNOMED-CT: 458611647 957781 Current Medications Documented UROLOG[facility] Referral Urology RN NICU Referral RN NICU Referral [facility] CPT-11333 Strep Screen 83187 4 809 [facility] Test # Sedimentation Rate RBC 2 6399 [facility] Test # CBC with diff 4 19496 [facility] Test # CMP 4 Other Quest Other Mammo DX YNES Mammogram Diagnostic Quest# 80500 ThinPrep Pap w refle x HR HPV/GC/Chlamydia mRNA E6/E7 CPT-93551 Venipuncture 69394 4 249 [facility] Test # HENNA 6399 Quest Test # CBC with diff 4 28817 [facility] Test # CMP 4 14482 [facility] Test # Lipid Panel 4 496 [facility] Test # HGBA1c 4418 [facility] Test # Rheumatoid Factor Quant 809 [facility] Test # Sedimentation Rate RBC 2 7573 [facility] Test # TIBC w iron level 12/30 93308 [facility] Test # TSH reflex to free T4 82774 Quest Test # Vitamin D 25 Dihydroxy X-Ray Thoracic Spine X-Ray Thoracic Spine X-Ray Lumbar Spine X-Ray Lumbar Spine 201 03/26/21 X-Ray Cervical Spine X-Ray Cervical Spine 51054 [facility] Test # Urine Drug Screen w/o [...]
--- OUTSIDE RECORDS SUMMARY | 2025-11-25 09:57 | XMS_ITS | Encounter Summary ---
Author Organization [employer] ([place], [place], [place], [place], [place]) Address [address] [place] [address] Care Team Providers Care Housing Relocation Name Role Phone Unavailable Primary Care Provider Unavailabl e Encounter Details Date Type Department Care Team (Late st Contact Info) Description 01/01/2019 Transcribed Document [facility] [place] [facility] [place] [address] ProviderElena MD [address] [place] [address] [phone] Social History Tobacco Use Types Packs/Day Years Used Date Smoking Tobacco: Never Assessed Comments Unknown Sex and Gender Information Value Date Recorded Sex Assigned at Not on file Legal Sex Female 5:06 PM CDT Gender Identity Not on file Sexual Orientation Not on file documented as of this encounter Miscellaneous Notes * Cerner Conversion Note - Elena ProviderMD - 01/01/2019 2:13 PM RAIL TECHNICIAN [facility] [address] [place] [address] Patient Information Name: THOMASDONYA ALONZO SCOTT Age: 43 Years Date of : 1975 Arrival Time: 01/01/2019 11:20:00 Diagnosis Chest pain Primary Care Physician: KEVEN SELLERS, CLINIC LICENSED PRACTICAL NURSE-INT Provider Information Primary Provider: NAE GREEN MD Secondary Provider: DONYA MALDONADO has been given the following list of patient education materials, prescriptions and follow-up instructions: Follow-up Instructions: With: Address: When: KEVEN SELLERS [address] [place] [phone] Business (1) Within 2 to 3 days [...] you start to feel better. ??? Take hrdi-gqi-rkmdrhx and prescription medicines only as told by [...] 08/22/2006 Document Revised: 08/06/2017 Document Reviewed: 08/06/2017 [employer] Interactive Patient Education ? 2017 [employer] Allergies: Percocet 5/325; sulfADIAZINE; lisinopril Medication Information: Prescription Display acetaminophen-hydrocodone ([place] 7.5 mg-325 mg oral tablet) 1 Tab, [...] verify that DONYA MALDONADO was seen at [facility] Emergency Department on ,01/01/2019 14:13:41. This [...] along the way. As a healthcare provider, [facility] recommends that you stop smoking. Assistance with quitting is available by contacting 7-497-YSYE-NOW. This is a free resource providing counseling, [...] Electronic Communications Privacy Act 18 U.S.C. ???Sections 6784-4963,?? and contain information intended for the specified [...] Be sure to sign up for the [facility] patient portal, which gives you 18/06 access to your medical information ??? including these discharge instructions ??? using your computer, smartphone, or tablet. Just go to [employer] to get started. Questions? Call . Acknowledgment [...] Providing Instructions: Emergency Physician: Electronically signed by Ivana [facility] Conversion Outside Food Server Aba at 03/12/2023 4:18 PM CDT documented in this encounter Plan of Treatment Not on file documented as of this encounter Visit Diagnoses Not on filedocumented in this encounter
--- OUTSIDE RECORDS SUMMARY | 2025-11-25 09:57 | XMS_ITS | Encounter Summary ---
Author Organization [employer] ([place], [place], [place], [place], [place]) Address [address] [place] [address] Care Team Providers Care Concrete Mixer Operator Name Role Phone Unavailable Primary Care Provider Unavailabl e Encounter Details Date Type Department Care Team (Late st Contact Info) Description 05/22/2019 Transcribed Document [facility] [place] [facility] [place] [address] ProviderElena MD [address] [place] [phone] Social History Tobacco Use Types Packs/Day Years [...] Medical/ Family/ Social History Surgical history: section ([id number]). LEEP ([id number]).. Family history: No family history items have been selected or recorded.. Social history: Social & Psychosocial Habits Alcohol 08/18/2014 Alcohol Use in Last Twelve Months No Employment/School 10/15/2018 Status: Employed Description: [employer] Home/Environment 10/15/2018 Lives with: Children Nutrition/Health 01/01/2019 [...] EDT Height Source Stated Height Entry Format Noble Height/Length, BRUNEIAN (ft) 4 ft Height/Length BRUNEIAN 11 Inch CLINICALHEIGHT 149.86 cm [place] Body Weight 42.87 kg Weight Source, ED Critical estimated dosing weight Weight Entry Format Noble Weight Ivorian lb 150 lb CLINICALWEIGHT 68.18 kg Body [...] Temperature Warm Communication Barrier None Primary Language Ivorian Information Obtained From Patient Smoking Status 5-9 [...] Fall Scale Risk Level 0-24 Low Risk [place] Fall Interventions Adequate lighting, Bed in low position, Call device within reach, Personal items within reach 05/22/2019 13:22 EDT Nurse Collect Order Detail 3.00 05/22/2019 13:22 EDT Nurse Collect Order Detail 3.00 05/22/2019 13:19 EDT Urine Type. U CleanCatch Urine Color Light Yellow Urine Appearance Clear Urine Specific [place] 1.015 Urine pH Dipstick 8.5 HI Urine [...] air Height Source Stated Height Entry Format Noble Height/Length, BRUNEIAN (ft) 4 ft Height/Length BRUNEIAN 11 Inch CLINICALHEIGHT 149.86 cm [place] Body Weight 42.87 kg Weight Source, ED Critical estimated dosing weight Weight Entry Format Noble Weight Ivorian lb 150 lb CLINICALWEIGHT 68.18 kg Body [...] 15:19 EDT, Discharge to: Home. Prescriptions: Prescription Lead Retail Sales Associate Pharmacy: [place] 5 mg-325 mg oral tablet (Prescribe): 1 Tab, Oral, Q4H, for 2 Day(s), PRN: for pain, 12 Tab, 0 Refill(s). Patient was given the following educational materials: Flank Pain, Adult. Limitations: Limited activity. Follow up with: [facility] Within As needed Patient stated she is currently established with Nia Aguilera at [facility] in [place]. Feel free to contact our Patient Resource Center at [phone] for any future Physician scheduling needs. ; KEVEN SELLERS Within 2 to 3 days. Counseled: Patient, Regarding diagnosis, Regarding diagnostic results, Regarding treatment plan, Regarding prescription, Patient indicated understanding of instructions. documented in this encounter Plan of Treatment Not on file documented as of this encounter Visit Diagnoses Not on filedocumented in this encounter
--- OUTSIDE RECORDS SUMMARY | 2025-11-25 09:57 | XMS_ITS | Encounter Summary ---
Author Organization [employer] ([place], [place], [place], [place], [place]) Address [address] [place] [address] Care Team Providers Care Rivet Hammer Machine Operator Name Role Phone Unavailable Primary Care Provider Unavailabl e Encounter Details Date Type Department Care Team (Late st Contact Info) Description 08/30/2021 Transcribed Document [facility] [place] [facility] [address] ProviderElena MD [address] [place] [address] [phone] Social History Tobacco Use Types Packs/Day Years [...] Performed On: 08/30/2021 13:13 EDT by ISIS RYDER, RN Height and Weight, Clinical Dosing Height Source : Measured Height Entry Format : [place] Height, Feet : 4 ft(Converted to: 122 cm, 48 Inch) Height, Inches : 11 Inch(Converted to: 0 ft 11 Inch, 27.94 cm) Clinical Height : 149.86 cm Weight Source : Standing scale Weight Entry Format : Dimmit Clinical Dosing Weight : 70.45 kg Weight, Pounds : 155 lb Body Surface Area (BSA) : 1.66 m2 Body Mass Index : 31.4 kg/m2 (HI) [place] Body Weight : 43 kg ISIS RYDER [...] ISIS RYDER RN - 08/30/2021 13:13 EDT [place] Suicide Severity Rating Scale (C-SSRS) CSSRS Past [...] Seth Support Person/Pt Rep Contact Information : [phone] Want Family/Rep/Phys Notified of Admit : No Emergency Contact #1 : Seth Emergency Contact #1 Emergency Contact #1 Relationship : so Emergency Contact #2 : na Emergency Contact #2 Phone Number : na Emergency Contact #2 Relationship : na Chief Complaint : xiomy Information Obtained From : Patient Primary Language : Faroese Preferred Communication Mode : Verbal Communication Barrier : None Practice Professional Needed : No ISIS RYDER RN - [...] Scale Risk Level : 25-45 Medium Risk [place] Fall Interventions : Adequate lighting, Call device within reach, Fall prevention handout/education per facility policy, Frequent orientation to call device ISIS RYDER RN - 08/30/2021 13:13 EDT Valuables and Belongings Valuables and Belongings : Clothing Clothing : Common streetwear Clothing Disposition : With patient, Declines to send to security/safe ISIS RYDER RN - 08/30/2021 13:13 EDT Pain Scale Intensity : 0 SIIS RYDER RN - 08/30/2021 13:13 EDT Image 4 - Images currently included in the form version of this document have not been included in the text rendition version of the form. documented in this encounter Plan of Treatment Not on file documented as of this encounter Visit Diagnoses Not on filedocumented in this encounter
--- OUTSIDE RECORDS SUMMARY | 2025-11-25 09:57 | XMS_ITS | Encounter Summary ---
Author Organization [employer] ([place], [place], [place], [place], [place]) Address [address] [place] [address] Care Team Providers Care Casting Director Name Role Phone Unavailable Primary Care Provider Unavailabl e Encounter Details Date Type Department Care Team (Late st Contact Info) Description 05/22/2019 Transcribed Document [facility] [place] [facility] [place] [address] ProviderElena MD [address] [place] [phone] Social History Tobacco Use Types Packs/Day [...] Brock MD - 05/22/2019 3:21 PM CDT [facility] [address] [place] [address] DONYA MALDONADO :1975 Visit Time:05/22/2019 [...] is currently established with Nia Aguilera at [facility] in [place]. Feel free to contact our Patient Resource Center at [phone] for any future Physician scheduling needs. Follow Up with KEVEN SELLERS When Within 2 to 3 days Where: [facility] [address] [place] [address] Business (1) Allergies Percocet 5/325 lisinopril sulfADIAZINE (C/O: a swelling~Redness, C/O: a swelling, Redness) Immunizations This Visit No Immunizations Found Medications What How Much When Instructions Next Dose New acetaminophen-hydrocodone ([place] 5 mg-325 mg oral tablet) 1 Tablet(s) [...] ) Urine Bilirubin Dipstick: Negative Urine Specific [place]: 1.015 -- Normal range between ( 1.005 [...] by your health care provider. ??? Take jeul-wrf-nhqhoqi and prescription medicines only as told by [...] 01/03/2007 Document Revised: 01/25/2018 Document Reviewed: 01/25/2018 [employer] Interactive Patient Education ?? 2019 [employer] Inc. Emergency Awareness and Preventative Care STROKE [...] Assistance with quitting is available by contacting 1-723-PJPZNOW. This is a free resource providing counseling, [...] was given the opportunity to ask questions. Patient/Take Out Waiter Name: Patient/Take Out Waiter Signature: Relationship to Patient: Clinician/Hospital Take Out Waiter Signature: Please Provide a Telephone Number Where You Can Be Reached: Is it Permissible To Leave a Message? Date: Electronically signed by Interface, [facility] Conversion Email Engineer Cerner at 03/12/2023 4:26 PM CDT documented in this encounter Plan of Treatment Not on file documented as of this encounter Visit Diagnoses Not on filedocumented in this encounter
--- OUTSIDE RECORDS SUMMARY | 2025-11-25 09:57 | XMS_ITS | Encounter Summary ---
Author Organization [employer] ([place], [place], [place], [place], [place]) Address [address] [place] [address] Care Team Providers Care Sewer Connector Name Role Phone Unavailable Primary Care Provider Unavailabl e Encounter Details Date Type Department Care Team (Late st Contact Info) Description 01/01/2019 Transcribed Document [facility] [place] [address] ProviderElena MD [address] [place] [phone] Social History Tobacco Use Types Packs/Day Years Used Date Smoking Tobacco: Never Assessed Comments Unknown Sex and Gender Information Value Date Recorded Sex Assigned at Not on file Legal Sex Female 5:06 PM CDT Gender Identity Not on file Sexual Orientation Not on file documented as of this encounter Miscellaneous Notes * Cerner Conversion Note - Historical ProviderMD - 01/01/2019 11:20 AM PAROLE DIRECTOR ED Assessment Entered On: 01/01/2019 12:21 EST [...] Communication Barrier : None Primary Language : Ethiopian Any Spiritual/Cultural Needs or Requests : No [...] Updated: 10/15/2018 02:51:16 EST by Ben Hernandez, Skylar) Employment/School: Employed, Work/School description: [employer]. (Last [...] 01/01/2019 12:17 EST Electronically signed by Ivana [facility] Conversion Structures Assembler Cerner at 03/12/2023 4:22 PM CDT documented in this encounter Plan of Treatment Not on file documented as of this encounter Visit Diagnoses Not on filedocumented in this encounter
--- OUTSIDE RECORDS SUMMARY | 2025-11-25 09:57 | XMS_ITS | Encounter Summary ---
Author Organization [employer] ([place], [place], [place], [place], [place]) Address [address] [place] [address] Care Team Providers Care Facility Mechanic Name Role Phone Unavailable Primary Care Provider Unavailabl e Encounter Details Date Type Department Care Team (Late st Contact Info) Description 01/01/2019 Transcribed Document [facility] [place] [address] ProviderElena MD [address] [place] [address] [phone] Social History Tobacco Use Types Packs/Day Years Used Date Smoking Tobacco: Never Assessed Comments Unknown Sex and Gender Information Value Date Recorded Sex Assigned at Not on file Legal Sex Female 5:06 PM CDT Gender Identity Not on file Sexual Orientation Not on file documented as of this encounter Miscellaneous Notes * Cerner Conversion Note - Historical ProviderMD - 01/01/2019 6:25 PM HOSPICE LIAISON CR Chest 1 Vw Portable Ordered: 01/01/2019 Modified Reason for Exam: pain 01/01/2019 13:12 01/01/2019 18:25 (HILARY ROBERTO PA-C) Reviewed by Provider, No further action required x1 documented in this encounter Plan of Treatment Not on file documented as of this encounter Visit Diagnoses Not on filedocumented in this encounter
--- OUTSIDE RECORDS SUMMARY | 2025-11-25 09:57 | XMS_ITS | Encounter Summary ---
Author Organization [employer] ([place], [place], [place], [place], [place]) Address [address] [place] [address] Care Team Providers Care Watch And Clock Repair Clerk Name Role Phone Unavailable Primary Care Provider Unavailabl e Encounter Details Date Type Department Care Team (Late st Contact Info) Description 01/01/2019 Transcribed Document [facility] [place] [address] ProviderElena MD [address] [place] [phone] Social History Tobacco Use Types Packs/Day Years Used Date Smoking Tobacco: Never Assessed Comments Unknown Sex and Gender Information Value Date Recorded Sex Assigned at Not on file Legal Sex Female 5:06 PM CDT Gender Identity Not on file Sexual Orientation Not on file documented as of this encounter Miscellaneous Notes * Cerner Conversion Note - Historical ProviderMD - 01/01/2019 1:42 PM CRUTCHING CONTRACTOR ED Discharge Entered On: 01/01/2019 14:13 EST [...] 01/01/2019 14:12 EST Electronically signed by Ivana [facility] Conversion Home Administrator Cerner at 03/12/2023 4:13 PM CDT documented in this encounter Plan of Treatment Not on file documented as of this encounter Visit Diagnoses Not on filedocumented in this encounter
--- OUTSIDE RECORDS SUMMARY | 2025-11-25 09:57 | XMS_ITS | Encounter Summary ---
Author Organization [employer] ([place], [place], [place], [place], [place]) Address [address] [place] [address] Care Team Providers Care Dude Ranch Manager Name Role Phone Unavailable Primary Care Provider Unavailabl e Encounter Details Date Type Department Care Team (Late st Contact Info) Description 01/01/2019 Transcribed Document [facility] [place] Family Medicine [facility] [place] [address] ProviderElena MD [address] [place] [address] Social History Tobacco Use Types Packs/Day Years Used Date Smoking Tobacco: Never Assessed Comments Unknown Sex and Gender Information Value Date Recorded Sex Assigned at Not on file Legal Sex Female 5:06 PM CDT Gender Identity Not on file Sexual Orientation Not on file documented as of this encounter Miscellaneous Notes * Cerner Conversion Note - Historical ProviderMD - 01/01/2019 11:20 AM ENGRAVER APPRENTICE DECORATIVE ED Triage Entered On: 01/01/2019 11:29 EST Performed On: 01/01/2019 11:24 EST by MARILYN GARCIA SHANK CARRIER Triage Across the Room Triage Date/Time : 01/01/2019 11:24 EST Chief Complaint : here with c/o chest pain starting just prior to arrival. c/o nausea. no vomiting. also c/o shortness of air. c/ tightness in chest. also c/o headache since this morning. MARILYN GARCIA, RN - 01/01/2019 11:24 EST DCP GENERIC CODE Tracking Acuity : 2 - Emergent Tracking Group : [facility] ED MARILYN Maurice RN - 01/01/2019 [...] Life Cycle Status: Active Ectopic (SNOMED CT :41447768 ) Name of Problem: Ectopic ; Recorder: MONI YUNG MD-EMR; Confirmation: Confirmed ; Classification: Medical ; Code: [id number] ; Contributor System: PowerChart ; Last Updated: 10/24/2014 8:05 EST ; Life Cycle Date: 10/24/2014 ; Life Cycle Status: Active ; Responsible Provider: MONI YUNG MD-EMR; Vocabulary: SNOMED CT HTN (hypertension) (SNOMED CT :6198975879 ) Name of Problem: HTN (hypertension) ; Recorder: CARINA MELCHOR RN; Confirmation: Confirmed ; Classification: Medical ; Code: [id number] ; Contributor System: PowerChart ; Last Updated: 09/29/2014 14:18 EST ; Life Cycle Date: 09/29/2014 ; Life Cycle Status: Active ; Vocabulary: SNOMED CT Hypoglycemia (SNOMED CT :831336312 ) Name of Problem: Hypoglycemia ; Recorder: Ben Hernandez Rn; Confirmation: Confirmed ; Classification: Medical ; Code: [id number] ; Contributor System: PowerChart ; Last Updated: 10/15/2018 1:50 EST ; Life Cycle Date: 10/15/2018 ; Life Cycle Status: Active ; Vocabulary: SNOMED CT Migraine (SNOMED CT :12160591 ) Name of Problem: Migraine ; Recorder: NICOLE LAMA RN; Confirmation: Confirmed ; Classification: Medical ; Code: [id number] ; Contributor System: PowerChart ; Last Updated: 12/19/2015 0:55 EST ; Life Cycle Date: 12/19/2015 ; Life Cycle Status: Active ; Vocabulary: SNOMED CT Diagnoses(Active) Chest pain Date: 01/01/2019 ; Diagnosis Type: Reason For Visit ; Confirmation: Complaint of ; Clinical Dx: Chest pain ; Classification: Medical ; Clinical Service: Emergency medicine ; Code: PNED ; Probability: 0 ; Diagnosis Code: [id number] Headache Date: 01/01/2019 ; Diagnosis Type: Reason For Visit ; Confirmation: Complaint of ; Clinical Dx: Headache ; Classification: Medical ; Clinical Service: Emergency medicine ; Code: PNED ; Probability: 0 ; Diagnosis Code: [id number] ED Height and Weight Height Source : Stated Height Entry Format : Pfeifer Height, Feet : 4 ft(Converted to: 122 cm, 48 Inch) Height, Inches : 11 Inch(Converted to: 0 ft 11 Inch, 27.94 cm) Clinical Height : 149.86 cm Weight Source, ED : Critical estimated dosing weight Weight Entry Format : Pfeifer Weight, Pounds : 145 lb Clinical Dosing Weight : 65.91 kg Body Surface Area (BSA) : 1.61 m2 Body Mass Index : 29.3 kg/m2 (HI) [place] Body Weight (IBW) : 42.87 kg MARILYN [...]
--- OUTSIDE RECORDS SUMMARY | 2025-11-25 09:57 | XMS_ITS | Encounter Summary ---
Author Organization [employer] ([place], [place], [place], [place], [place]) Address [address] [place] [address] Care Team Providers Care General Counsel Name Role Phone Unavailable Primary Care Provider Unavailabl e Encounter Details Date Type Department Care Team (Late st Contact Info) Description 01/01/2019 Transcribed Document [facility] [place] Family [place] [facility] [place] [address] ProviderElena MD [address] [place] [address] Social History Tobacco Use Types Packs/Day Years Used Date Smoking Tobacco: Never Assessed Comments Unknown Sex and Gender Information Value Date Recorded Sex Assigned at Not on file Legal Sex Female 5:06 PM CDT Gender Identity Not on file Sexual Orientation Not on file documented as of this encounter Miscellaneous Notes * Cerner Conversion Note - Historical ProviderMD - 01/01/2019 11:38 AM HYDROGRAPHIC ENGINEER Vital Signs ED Entered On: 01/01/2019 12:32 [...] 01/01/2019 12:31 EST Electronically signed by Ivana [facility] Conversion Perinatal Breastfeeding Assistant Cerner at 03/12/2023 4:18 PM CDT documented in this encounter Plan of Treatment Not on file documented as of this encounter Visit Diagnoses Not on filedocumented in this encounter
--- OUTSIDE RECORDS SUMMARY | 2025-11-25 09:57 | XMS_ITS | Clinical Summary ---
Author Organization [facility] Address [address] [place] [address] Phone Care Team Providers Care 7Th Grade Teacher Name Role Phone Unavailable Primary Care [...] of 2) 2025 COVID-19 Vaccine (1 - 2024- season) 2025 Influenza Vaccine (#1) 2025 9, [...] MD Impressions 01/09/2024 8:21 AM EST Negative ([id number]-3) ~ RECOMMENDATION: Routine screening mammogram in 1 [...] the next mammogram, in accordance with the [employer] and the Society of Breast Imaging recommendations. Narrative 01/09/2024 8:21 AM EST Procedure:MM MAMMO DIGITAL ADRIANNE SCREEN BILAT ~ Reason for exam: screening, asymptomatic. Z12.31-Encounter for screening mammogram for malignant neoplasm of rupman-BSG-93-CM ~ MM MAMMO DIGITAL ADRIANNE SCREEN BILAT [...] for screening mammogram for malignant neoplasm of nbfvtf-URM-85-CM ~ MM MAMMO DIGITAL ADRIANNE SCREEN BILAT Bilateral CC and MLO view(s) were taken. There are scattered fibroglandular densities. Prior study comparison: Compared with prior studies the most recentbeing none No mammographic evidence of malignancy. ~ ADDENDUM: ~ IMPRESSION: Negative (ZBM-[id number]-7) ~ RECOMMENDATION: Routine screening mammogram in 1 [...] the next mammogram, in accordance with the [employer] and the Society of Breast Imaging recommendations. us Not In [facility] Provider IMG MAMMOGRAPHY ORDERABLES Edited Result - Final from Last 3 Months or Most Recently Relevant to Health Maintenance Insurance [id number]
--- OUTSIDE RECORDS SUMMARY | 2025-11-25 09:57 | XMS_ITS | Encounter Summary ---
Author Organization [facility] ([place], [place], [place], [place], [place]) Address [address] [place] [address] Care Team Providers Care Child Adolescent Psychiatrist Name Role Phone Unavailable Primary Care Provider Unavailabl e Encounter Details Date Type Department Care Team (Late st Contact Info) Description 01/01/2019 Transcribed Document [facility] [place] Family Medicine [facility] [place] [address] ProviderElena MD [address] [place] [address] Social History Tobacco Use Types Packs/Day Years Used Date Smoking Tobacco: Never Assessed Comments Unknown Sex and Gender Information Value Date Recorded Sex Assigned at Not on file Legal Sex Female 5:06 PM CDT Gender Identity Not on file Sexual Orientation Not on file documented as of this encounter Miscellaneous Notes * Cerner Conversion Note - Historical ProviderMD - 01/01/2019 11:40 AM TABLE INSPECTOR Patient: DONYA MALDONADO Age: 43 years Sex: [...] Medical/ Family/ Social History Surgical history: section ([id number]). LEEP ([id number]).. Family history: No family history items have been selected or recorded.. Social history: Social & Psychosocial Habits Alcohol 08/18/2014 Alcohol Use in Last Twelve Months No Employment/School 10/15/2018 Status: Employed Description: [employer] Home/Environment 10/15/2018 Lives with: Children Substance Abuse [...] EST Height Source Stated Height Entry Format [place] Height/Length, MALAYSIAN (ft) 4 ft Height/Length MALAYSIAN 11 Inch CLINICALHEIGHT 149.86 cm [place] Body Weight 42.87 kg Weight Source, ED Critical estimated dosing weight Weight Entry Format [place] Weight [place] lb 145 lb CLINICALWEIGHT 65.91 kg Body [...] rhythm, No ST changes, no ectopy, normal MT & QRS intervals, EP Interp. environmental monitoring technician: Rate 70, normal sinus rhythm. Results review: [...] Temperature Warm Communication Barrier None Primary Language [place] Information Obtained From Patient Smoking Status 5-9 [...] air Height Source Stated Height Entry Format [place] Height/Length, MALAYSIAN (ft) 4 ft Height/Length MALAYSIAN 11 Inch CLINICALHEIGHT 149.86 cm [place] Body Weight 42.87 kg Weight Source, ED Critical estimated dosing weight Weight Entry Format [place] Weight [place] lb 145 lb CLINICALWEIGHT 65.91 kg Body [...] Fall Scale Risk Level 0-24 Low Risk [place] Fall Interventions Adequate lighting, Bed in low [...] 13:03 EST, Discharge to: Home. Prescriptions: Prescription Biologist Aide Pharmacy: [facility] 7.5 mg-325 mg oral tablet (Prescribe): 1 [...]
--- OUTSIDE RECORDS SUMMARY | 2025-11-25 09:57 | XMS_ITS | Encounter Summary ---
Author Organization [facility] Address [address] [place] [address] Care Team Providers Care Specialist Physicians Name Role Phone Michael Sinclair NP Primary Care Provider [phone] Encounter Details Date Type Department Care Team ([facility] st Contact Info) Description 01/24/2023 Telephone [facility] [address] 3rd [place] [address] Maren Napier MD [address], [address] [place], [place] [id number] Social History Tobacco Use Types Packs/Day Years [...] 01/24/2023 2:51 PM EST Call back number: [phone] Person Calling (patient/caregiver/facility etc): Patient Patient's provider: [...] on filedocumented in this encounter Care Teams Specialist Physicians Relationship Specialty Start Date End Date Michael Sinclair NP [address] [place] [id number] PCP - General 12/11/22 documented as of this encounter
--- OUTSIDE RECORDS SUMMARY | 2025-11-25 09:58 | XMS_ITS | Encounter Summary ---
Author Organization [facility] Address [address] [place] [address] Care Team Providers Care Hydraulic Operator Name Role Phone Laura Cobian Primary Care Provider [phone] Encounter Details Date Type Department Care Team (Late st Contact Info) Description 12/03/2013 Conversion Encounter [facility] HISTORICAL CONV [address] [place] [address] Interface, See Report Social History [...] PM EST Clinical Report - Physicians/Mid Levels [facility] [address] [place] [address] 12/03/2013 Patient: DONYA JERONIMO Sex: F : [...] (FEU) Chest 1V Port: (KAYLAN: 12/03/2013 16:20)( [facility] 12/03/2013 16:20) Final results ED BED 11 Exam Report AP PORTABLE ERECT CHEST 12/03/2013 AT 1343 HOURS INDICATION- Shortness of air, nausea FINDINGS- The heart size is normal. There is no pneumothorax or pleural fluid collection. The lungs are free of focal opacities. DT- 12/03/2013 DE- 12/03/2013 Broaching Machine Repairer- UMA MENDEZ Reading Radiologist- AARON MEDINA Releasing Radiologist- AARON MEDINA Released Date Time- 12/03/13 1620 Read By AARON MEDINA Released By AARON MEDINA Lipase: (KAYLAN: 12/03/2013 13:55)( [facility] 12/03/2013 14:21) Final results Test Result Flag Units (Reference) Lipase 24 U/L (6-52) Amylase: (KAYLAN: 12/03/2013 13:55)( [facility] 12/03/2013 14:21) Final results Test Result Flag Units (Reference) Amylase 26 Units/L (20-104) BNP (Natriuretic Peptide): (KAYLAN: 12/03/2013 13:55)( [facility] 12/03/2013 14:28) Final results Test Result Flag Units (Reference) BNP 18 pg/mL (0-100) PTT: (KAYLAN: 12/03/2013 13:55)( [facility] 12/03/2013 14:20) Final results Test Result Flag Units (Reference) PTT 26 Seconds (24-31) PTT = The equivalent PTT values for the therapeutic range of heparinlevels at 0.3 to 0.5 U/ml are 45 to 60 seconds.PTT = The equivalent PTT values for the therapeutic range of heparinlevels at 0.3 to 0.5 U/ml are 45 to 60 seconds. PT with INR: (KAYLAN: 12/03/2013 13:55)( [facility] 12/03/2013 14:20) Final results Test Result Flag Units (Reference) Protime 10.7 Seconds (9.6-11.5) INR 1.00 Therapeutic Ranges for INR:2.0-3.0 (PT 20-30) 2.5-3.5 (PT 25-34) CMP: (KAYLAN: 12/03/2013 13:55)( [facility] 12/03/2013 14:21) Final results Test [...] CBC w Auto Diff: (KAYLAN: 12/03/2013 13:55)( [facility] 12/03/2013 14:12) Final results Test Result Flag Units (Reference) WBC 6.56 K/mcL (3.50-10.80) RBC 4.24 M/mcL (3.89-5.14) Hemoglobin 13.7 g/dL (11.5-15.5) Hematocrit 39.6 % (34.5-44.0) MCV 93.4 fL (80.0-99.0) MCH 32.3 H pg (27.0-31.0) MCHC 34.6 g/dL (32.0-36.0) RDWCV 13.5 % (11.3-14.5) Platelet 333 K/mcL (150-450) Abs Neutrophil 3.56 K/mcL (1.50-8.30) Abs Lymph 2.25 K/mcL (0.60-4.80) Abs Levy 0.62 K/mcL (0.00-1.00) Abs Eos 0.11 K/mcL (0.10-0.30) Abs Baso 0.01 K/mcL (0.00-0.20) Neutrophils 54.1 % (41.0-71.0) Lymphocytes 34.3 % (24.0-44.0) Monocytes 9.5 % (0.0-12.0) Eosinophils 1.7 % (0.0-3.0) Basophils 0.2 % (0.0-1.0) Immature Gran 0.2 % (0.0-0.6) Troponin-I Rapid (ER: (KAYLAN: 12/03/2013 15:59)( [facility] 12/03/2013 16:15) Final results Test Result Flag Units (Reference) Rapid Troponin I 0.00 ng/mL (0.00-0.60) Different methodologies are used for cardiac testing between the ED andmain laboratory. Refer to the appropriate reference range forinterpretation. Troponin-I Rapid (ER: (KAYLAN: 12/03/2013 14:08)( [facility] 12/03/2013 14:25) Final results Test Result Flag [...] Troponin I 0.00 0.00 - 0.60 ng/mL [facility] Comment: Different methodologies are used for cardiac testing between the ED and main laboratory. Refer to the appropriate reference range for interpretation. Blood specimen (specimen) 12/03/2013 3:59 PM EST Narrative [facility] - 12/03/2013 4:15 PM EST Specimen Type: Blood Historical Provider MD POINT OF CARE TEST ORDERA BLES Final Result Performing Organization Address [facility] Co de Phone Number [facility] [address] [place] [address], * POCT Troponin, Rapid (12/03/2013 2:08 PM EST) Troponin I 0.00 0.00 - 0.60 ng/mL [facility] Comment: Different methodologies are used for cardiac testing between the ED and main laboratory. Refer to the appropriate reference range for interpretation. Blood specimen (specimen) 12/03/2013 2:08 PM EST Narrative [facility] - 12/03/2013 2:25 PM EST Specimen Type: Blood Historical Provider MD POINT OF CARE TEST ORDERA BLES Final Result Performing Organization Address [facility]/ZIP Co de Phone Number [facility] [address] [place] [address], * XR chest 1 vw (12/03/2013 2:03 PM EST) Anatomical Region Laterality Modality Body N/A Radiographic Tammie ging 12/03/2013 2:03 PM EST Narrative 12/03/2013 4:02 PM EST AP PORTABLE ERECT CHEST 12/03/2013 AT 1343 HOURS INDICATION: Shortness of air, nausea FINDINGS: The heart size is normal. There is no pneumothorax or pleural fluid collection. The lungs are free of focal opacities. DE: 12/03/2013 Broaching Machine Repairerleyda MEDINA Releasing Pily MEDINA Released Date Time- [...] Quant <0.19 0.00 - 0.50 mg/L FEU [facility] Comment: DF by IF @ 12/03/2013 15:41 Negative predictive value for exclusion of venous thromboembolism: < or = 0.5 mg/L (FEU) Blood specimen (specimen) 12/03/2013 1:55 PM EST [facility] - 12/03/2013 3:42 PM EST Specimen Type: Blood Nicholas Esquivel MD LAB BLOOD ORDERABLES Chika l Result Performing Organization Address [facility]/State/ZIP Co de Phone Number [facility] [address] [place] [address], * Lipase (12/03/2013 1:55 PM EST) Lipase 24 6 - 52 U/L [facility] Blood specimen (specimen) 12/03/2013 1:55 PM EST [facility] - 12/03/2013 2:21 PM EST Specimen Type: Blood us Albert Mason MD LAB BLOOD ORDERABLES Final Res ult Performing Organization Address [facility] Co de Phone Number [facility] [address] [place] [address], [place] [phone] * Amylase (12/03/2013 1:55 PM EST) Amylase 26 20 - 104 Units/L [facility] Blood specimen (specimen) 12/03/2013 1:55 PM EST [facility] - 12/03/2013 2:21 PM EST Specimen Type: Blood us Albert Mason MD LAB BLOOD ORDERABLES Final Res ult Performing Organization Address [facility] Co de Phone Number [facility] [address] [place] [address], [place] [phone] * BNP (12/03/2013 1:55 PM EST) BNP 18 0 - 100 pg/mL [facility] Blood specimen (specimen) 12/03/2013 1:55 PM EST [facility] - 12/03/2013 2:28 PM EST Specimen Type: Blood Albert Mason MD LAB BLOOD ORDERABLES Final Res ult Performing Organization Address [facility] de Phone Number [facility] [address] [place] [address], * APTT (12/03/2013 1:55 PM EST) PTT 26 24 - 31 Seconds [facility] Comment: US by IF @ 12/03/2013 14:20 PTT = The equivalent PTT values for the therapeutic range of heparin levels at 0.3 to 0.5 U/ml are 45 to 60 seconds. PTT = The equivalent PTT values for the therapeutic range of heparin levels at 0.3 to 0.5 U/ml are 45 to 60 seconds. Blood specimen (specimen) 12/03/2013 1:55 PM EST [facility] - 12/03/2013 2:20 PM EST Specimen Type: Blood us Albert Mason MD LAB BLOOD ORDERABLES Final Res ult Performing Organization Address [facility] de Phone Number [facility] [address] [place] [address], * Protime-INR (12/03/2013 1:55 PM EST) Protime 10.7 9.6 - 11.5 Seconds [facility] INR 1.00 [facility] Comment: US by IF @ 12/03/2013 14:20 Therapeutic Ranges for INR: 2.0-3.0 (PT 20-30) 2.5-3.5 (PT 25-34) Blood specimen (specimen) 12/03/2013 1:55 PM EST Narrative [facility] - 12/03/2013 2:20 PM EST Specimen Type: Blood us Albert Mason MD LAB BLOOD ORDERABLES Final Res ult [facility] [address] [place] [address], * Comprehensive metabolic panel (12/03/2013 1:55 PM EST) Glucose 92 70 - 100 mg/dL [facility] BUN 12 6 - 20 mg/dL [facility] Creatinine 0.7 0.6 - 1.3 mg/dL [facility] Sodium 137 136 - 145 mmol/L [facility] Potassium 3.7 3.4 - 5.4 mmol/L [facility] Chloride 105 98 - 107 mmol/L [facility] CO2 26 20 - 31 mmol/L [facility] Calcium 9.4 8.7 - 10.4 mg/dL [facility] Alkaline Phosphatase 69 25 - 100 Units/L [facility] AST (SGOT) 13 8 - 33 Units/L [facility] ALT (SGPT) 18 7 - 40 Units/L [facility] Total Bilirubin 0.5 0.3 - 1.2 mg/dL [facility] Total Protein 7.4 6.4 - 8.3 g/dL [facility] Albumin 4.2 3.4 - 4.8 g/dL [facility] eGFR 101 ml/min/1.7 32 [facility] Comment: DF by IF @ 12/03/2013 14:21 [employer] Guidelines Stage Description GFR 1 Normal or High 90+ 2 Mild decrease 60-89 3 Moderate decrease 30-59 4 Severe decrease 15-29 5 Kidney failure <15 Anion Gap 6 3 - 11 mmol/L [facility] Blood specimen (specimen) 12/03/2013 1:55 PM EST Narrative [facility] - 12/03/2013 2:21 PM EST Specimen Type: Blood us Albert Mason MD LAB BLOOD ORDERABLES Final Res ult [facility] [address] [place] [address], * (ABNORMAL) CBC and Differential (12/03/2013 1:55 PM EST) WBC 6.56 3.50 - 10.80 K/[facility] RBC 4.24 3.89 - 5.14 /[facility] Hemoglobin 13.7 11.5 - 15.5 g/dL [facility] Hematocrit 39.6 34.5 - 44.0 % [facility] MCV 93.4 80.0 - 99.0 fL [facility] MCH 32.3(H) 27.0 - 31.0 pg [facility] MCHC 34.6 32.0 - 36.0 g/dL [facility] RDW-CV 13.5 11.3 - 14.5 % [facility] Platelets 333 150 - 450 [facility] Neutrophils Absolute 3.56 1.50 - 8.30 [facility] Lymphocytes Absolute 2.25 0.60 - 4.80 [facility] Monocytes Absolute 0.62 0.00 - 1.00 [facility] Eosinophils Absolute 0.11 0.10 - 0.30 [facility] Basophils Absolute 0.01 0.00 - 0.20 [facility] Neutrophil Rel % 54.1 41.0 - 71.0 % [facility] Lymphocyte Rel % 34.3 24.0 - 44.0 % [facility] Monocyte Rel % 9.5 0.0 - 12.0 % [facility] Eosinophil Rel % 1.7 0.0 - 3.0 % [facility] Basophil Rel % 0.2 0.0 - 1.0 % [facility] Immature Granulocyte Rel % 0.2 0.0 - 0.6 % [facility] Blood specimen (specimen) 12/03/2013 1:55 PM EST Narrative [facility] - 12/03/2013 2:12 PM EST Specimen Type: Blood us Albert Mason MD LAB BLOOD ORDERABLES Final Res ult [facility] [address] [place] [address], * SCANNED EKG (12/03/2013) [facility] New Onbase ECG ORDERABLES Final Result documented in this encounter Visit Diagnoses Not on filedocumented in this encounter Additional Health Concerns Infection Onset Date Last Indicated Resolved Time COVID Screen (preop/placement) 07/13/2021 07/13/2021 07/13/2021 1:51 PM EDT documented as of this encounter Care Teams Hydraulic Operator Relationship Specialty Start Date End Date Laura Cobian [address] [place] [address] PCP - General Nurse Practitioner 11/23/23 documented as of this encounter
--- OUTSIDE RECORDS SUMMARY | 2025-11-25 09:58 | XMS_ITS | Encounter Summary ---
Author Organization [email or web address] ([place], [place], [place], [place], [place]) Address [address] [place] [address] Care Team Providers Care Human Service Coordinator Name Role Phone Unavailable Primary Care Provider Unavailabl e Encounter Details Date Type Department Care Team (Late st Contact Info) Description 08/30/2021 Transcribed Document [facility] [place] Family Medicine [facility] [place] [address] ProviderElena MD [address] [place] [id number] Social History Tobacco Use Types Packs/Day Years [...]
--- OUTSIDE RECORDS SUMMARY | 2025-11-25 09:58 | XMS_ITS | Clinical Summary ---
Author Organization [facility] Address [address] [place] [address] Care Team Providers Care American Sign Language Interpreter Name Role Phone Michael Sinclair NP Primary Care Provider [phone] Allergies Active Allergy Reactions Criticality Noted Date [...] age to complete this topic Care Teams American Sign Language Interpreter Relationship Specialty Start Date End Date Michael Sinclair NP [address] [place] [address] PCP - General 12/11/22
--- OUTSIDE RECORDS SUMMARY | 2025-11-25 09:58 | XMS_ITS | Clinical Summary ---
Author Organization [facility] Address [address] [place] [address] Care Team Providers Care Associate Vice President Name Role Phone Unavailable Primary Care Provider [...] TIMES DAILY TESTING 11/02/2020 Active Glucose Blood (AXON Ghost SentinelUCH ULTRA BLUE ) TEST 3 TIMES DAILY. 10/08/2019 Active Active Problems No known active problems Encounters Date Type Department Care Team Description 11/18/[address] [facility] Room [address] [place] [address] Efren Allen 11/16/2025 [facility] [address] [place] [address] Jennifer Palacios MD KAREN (obstructive sleep apnea) (Primary Dx) from Last 3 Months Immunizations Immunization Administration Dates Next Due Hep [...] 2025 [facility]-Zoster Vaccines (1 of 2) 2025 [id number] Vaccine (1 - 2024- season) 2025 [facility]-Influenza Vaccine (#1) 07/27/202508/28, 12/26/2017, 10/26/2016, Additional history exists [facility]-Hepatitis A Vaccines Aged Out 08/28/2019 No longer eligible based on patient's age to complete this topic [facility]-Diabetes: Hemoglobin A1C Discontinued 07/14/2021, 06/09/2021, 06/05/2019 HPV Vaccines (No Doses Required) Completed [facility]-HIB Vaccines Aged Out No longer e ligible based on patient's age to complete this topic [facility]-IPV Vaccines Aged Out No longer e ligible based on patient's age to complete this topic [facility]-Rotavirus Vaccines Aged Out No lo nger eligible based on patient's age to complete this topic Insurance AETNA [facility] MEDICAID
--- OUTSIDE RECORDS SUMMARY | 2025-11-25 09:58 | XMS_ITS | Encounter Summary ---
Author Organization [facility] Address [address] [place] [address] Care Team Providers Care Product Strategy Director Name Role Phone Karime Pinto APRN, DNP Primary Care Provider + Reason for Visit * Reason Comments Med Refill Encounter Details Date Type Department Care Team (Late st Contact Info) Description 07/05/2021 Refill Lorna Bee [address] [phone] Karime Pinto APRN, DNP [address] [place] [phone] Social History Tobacco Use Types Packs/Day [...] documented as of this encounter Care Teams Product Strategy Director Relationship Specialty Start Date End Date Karime Pinto APRN, CHARLEY [address] [place] [phone] PCP - General 04/08/21 08/23/21 documented as of this encounter
--- OUTSIDE RECORDS SUMMARY | 2025-11-25 09:58 | XMS_ITS | Encounter Summary ---
Author Organization [facility] Address [address] [place] [address] Care Team Providers Care Shield Cleaner Name Role Phone Unavailable Primary Care Provider Unavailabl e Reason for Referral * Consultation (Routine) - Authorized Specialty Diagnoses / Procedures Referred By Contac t Referred To Contact Dentist / Pain Medicine Diagnoses KAREN (obstructive sleep apnea) Jennifer Palacios MD fax: [facility] Room [address] [place] [address] Phone: tel: fax: Referral ID Status Reason Start Date Expiration Date V isits Requested Visits Authorized [id number] Authorized 11/16/2025 05/18/2027 1 1 Encounter Details Date Type Department Care Team ([facility] st Contact Info) Description 11/16/2025 [facility] [address] [place] [address] Jennifer Palacios MD KAREN (obstructive sleep apnea) (Primary Dx) Social History Tobacco Use Types Packs/Day Years [...] as of this encounter Plan of Treatment Scheduled Referrals Name Type Priority Associated Diagnoses Order Schedule Ambulatory Referral to Orofacial Pain Outpatient Referral Routine KAREN (obstructive sleep apnea) Expected: 11/16/2025 (Approximate), Expires: 05/17/2027 documented as of this encounter Visit Diagnoses Diagnosis KAREN (obstructive sleep apnea)- Primary Obstructive sleep apnea (adult) (pediatric) documented in this encounter Additional Health Concerns Assessment Noted Time A fall risk assessment has been complete d for the patient 12/14/2021 11:47 AM EST documented as of this encounter
--- OUTSIDE RECORDS SUMMARY | 2025-11-25 09:58 | XMS_ITS | Encounter Summary ---
Author Organization [facility] Address [address] [place] [address] Care Team Providers Care Inseam Trimming Machine Operator Name Role Phone Karime Pinto APRN, DNP Primary Care Provider + Reason for Visit * Reason Comments Med Refill Encounter Details Date Type Department Care Team (Late st Contact Info) Description 05/10/2021 Refill Lorna Bee [address] [phone] Karime Pinto APRN, DNP [address] [place] [phone] Social History Tobacco Use Types Packs/Day [...] on filedocumented in this encounter Care Teams Inseam Trimming Machine Operator Relationship Specialty Start Date End Date Karime Pinto APRN, [facility] [address] [place] [phone] PCP - General 04/08/21 08/23/21 documented as of this encounter
--- OUTSIDE RECORDS SUMMARY | 2025-11-25 09:58 | XMS_ITS | Referral Summary ---
Author Organization [facility] ([place], [place], [place], [place], [place]) Address [address] [place] [address] Care Team Providers Care Wheat Cleaner Name Role Phone Unavailable Primary Care [...] Date Carl rded Speak language other than Com[place]an at home Not on file 12/08/2023 Want [...] Plan of Treatment Not on file Insurance AETNA [facility] Advance Directives For more information, please contact: [phone] * Full Code (Latest Code Status on File) Date Activated Date Inactivated Comments 12/07/2022 3:45 PM 12/08/2022 7:01 PM
--- OUTSIDE RECORDS SUMMARY | 2025-11-25 09:58 | XMS_ITS | Clinical Summary ---
Author Organization [facility] ([place], [place], [place], [place], [place]) Address [address] [place] [address] Care Team Providers Care Cash Manager Name Role Phone Unavailable Primary Care [...] Date Carl rded Speak language other than [place] at home Not on file 12/08/2023 Want [...] (Zoster) (1 of 2) 2025 COVID-19 VACCINE ( season) 2025 Influenza Vaccine (#1) 2025 08/28/2019, 2014 Insurance AETNA [facility] Advance Directives For more information, please contact: [phone] * Full Code (Latest Code Status on File) Date Activated Date Inactivated Comments 12/07/2022 3:45 PM 12/08/2022 7:01 PM
--- OUTSIDE RECORDS SUMMARY | 2025-11-25 09:58 | XMS_ITS | Encounter Summary ---
Author Organization [facility] Address [address] [place] [address] Care Team Providers Care Body Bumper Name Role Phone Karime Pinto APRN, DNP Primary Care Provider + Reason for Visit * Reason Comments Med Refill Encounter Details Date Type Department Care Team (Late st Contact Info) Description 05/03/2021 Refill Lorna Bee [address] [phone] Karime Pinto APRN, DNP [address] [place] [phone] Social History Tobacco Use Types Packs/Day [...] on filedocumented in this encounter Care Teams Body Bumper Relationship Specialty Start Date End Date Karime Pinto APRN, DNP [address] [place] [phone] PCP - General 04/08/21 08/23/21 documented as of this encounter
--- OUTSIDE RECORDS SUMMARY | 2025-11-25 09:58 | XMS_ITS | Encounter Summary ---
Author Organization [employer] ([place], [place], [place], [place], [place]) Address [address] [place] [address] Care Team Providers Care Ophthalmologist Retina Specialist Name Role Phone Unavailable Primary Care Provider Unavailabl e Encounter Details Date Type Department Care Team (Late st Contact Info) Description 08/30/2021 Transcribed Document [facility] Family Medicine [address] [place] [id number] ProviderElena MD [address] [place] [phone] Social History Tobacco Use Types Packs/Day [...] Elena ProviderMD - 08/30/2021 3:23 PM CDT [address] [address] DONYA JERONIMO :1975 Visit Time:08/30/2021 [...] Comments Call for follow up appointment Where: [address] [place] [address]- Medications What How Much When Instructions Next [...] provider. This is important. Medicines ??? Take hpwv-lxu-xbvafdd and prescription medicines only as told by [...] provider. Document Revised: 07/23/2019 Document Reviewed: 07/23/2019 [employer] Patient Education ?? 2020 [employer] Transesophageal Echocardiogram Transesophageal echocardiogram (GEORGE) is [...] diabetes medicines or blood thinners. ? Taking pqzj-ajr-nihdgfx medicines, vitamins, herbs, and supplements. ? Taking [...] provider. Document Revised: 08/01/2019 Document Reviewed: 02/13/2018 [employer] Patient Education ?? 2020 [employer] Moderate Conscious Sedation, Adult, Care After [...] you are awake and alert. ??? Take hqmg-bcb-yavfgzy and prescription medicines only as told by [...] provider. Document Revised: 10/07/2020 Document Reviewed: 10/07/2020 [employer] Patient Education ?? 2020 [employer]. Emergency Awareness and Preventative Care STROKE is [...] Assistance with quitting is available by contacting 6-759-XWWQ-NOW. This is a free resource providing counseling, [...] 1:07 PM SARS-CoV-2 (COVID19 PCR): Negative Patient Name:KRISTINE JERONIMOJAMAAL CHAVEZ I have received and understand this information and was given the opportunity to ask questions. Patient/Herbologist Name: Patient/Herbologist Signature: Relationship to Patient: Clinician/Hospital Herbologist Signature: Date: documented in this encounter Plan of Treatment Not on file documented as of this encounter Visit Diagnoses Not on filedocumented in this encounter
--- OUTSIDE RECORDS SUMMARY | 2025-11-25 09:58 | XMS_ITS | Encounter Summary ---
Author Organization [facility] Address [address] [place] [address] Care Team Providers Care Case Management Associate Name Role Phone Unavailable Primary Care Provider Unavailabl e Encounter Details Date Type Department Care Team (Late st Contact Info) Description 11/18/2025 Telephone [facility] Room [address] [place] [address] Efren Allen [phone] Social History Tobacco Use Types Packs/Day Years [...] encounter Miscellaneous Notes * Telephone Encounter - Efren Allen - 11/18/2025 9:57 AM EST Called and got no answer left a message to get scheduled. documented in this encounter Plan of Treatment Not on file documented as of this encounter Visit Diagnoses Not on filedocumented in this encounter Additional Health Concerns Assessment Noted Time A fall risk assessment has been complete d for the patient 12/14/2021 11:47 AM EST documented as of this encounter
[2025-11-25 10:27] LABS: Blood Urea Nitrogen 15 mg/dl (7-17); Creatinine,Serum 0.70 mg/dl (0.52-1.04); Estimated Glomerular Filt Rate 89 ml/min (>60); GFR (African American) 107 ML/MIN (>60)
[2025-12-01 17:22] LABS: Voltage-gated Ca Antibody 24.1 pmol/L (0.0-30.0)
[2025-12-03 15:12] LABS: MuSK Antibodies <1.0 U/mL (.)
== END 2025-11-25 23:59 | disposition home or self-care (01) ==
LOC: RAD 09:51
PROVIDERS: PCP Nurse Practitioner; Visit Provider Specialist
DX: G43.909 Migraine, unspecified, not intractable, without status migrainosus (principal); H53.2 Diplopia; G47.33 Obstructive sleep apnea (adult) (pediatric); R26.9 Unspecified abnormalities of gait and mobility
CPT/HCPCS: 36415; 82565; 83519; 84520; 85651; 86255; 86596